=== PATIENT | female | born 1965 | race Caucasian/White ===

== ENCOUNTER → 2023-09-21 | Outpatient (CLI) | payer OTHER, SELFPAY ==
--- NOTE | 2023-09-21 14:35 | BI_ITS ---
MAMMOGRAPHY - BILATERAL SCREENING REASON FOR EXAM: Female, 58 years old. Routine annual screening examination. PERTINENT HISTORY: Grandmother with breast cancer. History of prior bilateral breast reduction surgery. TECHNIQUE: Digital bilateral breast mauro (3D mammographic acquisition) in the CC and MLO projections. 2-D mediolateral oblique (MLO) and craniocaudad (CC) views of both breasts were obtained. CAD: Full Field Digital Mammography with Computer Added Detection was performed. COMPARISON: Comparison is made with prior examination January 26, 2002. FINDINGS: Breast Composition: There are scattered areas of fibroglandular density. There are no dominant masses or suspicious calcifications. Stable small benign-appearing bilateral axillary lymph nodes. No other significant abnormalities are identified. There has been no significant change since the prior study. BI/SCRN MAMM (CAD)W/MAURO BILAT IMPRESSION: Stable bilateral screening mammogram. Yearly follow-up mammogram recommended. (A) ASSESSMENT CATEGORY: BIRADS Category 2: Benign. A letter regarding these results will be sent to the patient by the facility within 30 days. Approximately 10% of breast cancers are not detected by mammography. A normal mammogram should not delay biopsy of a clinically suspicious abnormality. [id number] Electronically Signed: Sal Griffin MD at 8:32 EST ,
== END | disposition home or self-care (01) ==
PROVIDERS: PCP Internal Medicine; Referring Provider Internal Medicine; Visit Provider Internal Medicine
DX: Z12.31 Encounter for screening mammogram for malignant neoplasm of breast (principal)
CPT/HCPCS: 77063; 77067

== ENCOUNTER → 2023-10-18 | Outpatient (CLI) | payer OTHER, SELFPAY ==
--- OUTSIDE RECORDS SUMMARY | 2023-10-18 08:55 | XMS RPT_ITS | CCD ---
Author Name Unknown Address [address] [place] [address] Organization [facility] Care Team Providers Care Network Cable Installer Name Role Phone ROC TOBIAS CNP Primary Care Unavailable ROC TOBIAS CNP Admitting Unavailable ROC TOBIAS CNP Attending Unavailable ROC TOBIAS CNP Consulting Unavailable PROVIDER, UNKNOWN Consulting Unavailable PROVIDER, UNKNOWN Consulting Unavailable ROC TOBIAS CNP Admitting Unavailable ROC TOBIAS CNP Attending Unavailable ROC TOBIAS CNP Consulting Unavailable ROC TOBIAS CNP Primary Care Unavailable PROVIDER, UNKNOWN Consulting Unavailable PROVIDER, UNKNOWN Consulting Unavailable ROC TOBIAS CNP Admitting Unavailable ROC TOBIAS CNP Attending Unavailable ROC TOBIAS CNP Consulting Unavailable ROC TOBIAS CNP Primary Care Unavailable PROVIDER, UNKNOWN Consulting Unavailable PROVIDER, UNKNOWN Consulting Unavailable JAVON FUENTES Primary Care Unavailable JAVON FUENTES Admitting Unavailable ROC TOBIAS CNP Consulting Unavailable JAVON FUENTES Attending Unavailable PROVIDER, UNKNOWN Consulting Unavailable PROVIDER, UNKNOWN Consulting Unavailable ROC TOBIAS CNP Primary Care Unavailable ROC TOBIAS CNP Admitting Unavailable ROC TOBIAS CNP Attending Unavailable ROC TOBIAS CNP Consulting Unavailable PROVIDER, UNKNOWN Consulting Unavailable PROVIDER, UNKNOWN Consulting Unavailable Problems Active Problems Problem Classification Problem Date Documented Da te Episodic/Chronic Disorders of lipid metabolism (2 sources) Hyperlipidemia, unspecified; Translations: [Hyperlipidemia, unspecified] Onset: 05-31-2021 Chronic Other nutritional; endocrine; and metabolic disorders (1 source) Morbid (severe) obesity due to excess calories; Translations: [Morbid (severe) obesity due to excess calories] Onset: 05-31-2021 Chronic Other nutritional; endocrine; and metabolic disorders (1 source) Overweight; Translations: [Overweight] Onset: 01-13-2022 Episodic Other screening for suspected conditions (not mental disorders or infectious disease) (1 source) Encounter for screening for diseases of the blood and blood-forming organs and certain disorders involving the immune mechanism; Translations: [Encounter for screening for diseases of the blood and blood-forming organs and certain disorders involving the immune mechanism] Onset: 01-13-2022 Episodic Past or Other Problems Problem Classification Problem Date Documented Da te Episodic/Chronic Malaise and fatigue (2 sources) Other fatigue; Translations: [Other fatigue] Onset: 05-31-2021 Episodic Other circulatory disease (3 sources) Elevated blood-pressure reading, without diagnosis of hypertension; Translations: [Elevated blood-pressure reading, without diagnosis of hypertension] Onset: 05-31-2021 Episodic Results Test Name Value Interpretation Reference Range Facil ity Encounters Encounter Date Encounter Type Care Provider Facility Start: 02-16-2022 End: 02-16-2022 ambulatory JAVON Colin [facility] Start: 01-26-2022 End: [facility] [facility] Start: 01-13-[address] [facility] Start: 05-31-2021 End: 05-31-2021 ambulatory [facility] Payers Date Payer Category Payer Unknown [id number] 1965 Unknown [id number] 2.16.84 [id number] 1965 Unknown [id number] 2.16.84 [id number] 1965 Unknown [id number] 2.16.84 [id number] 1965 Unknown [id number] 2.16.84 [id number] 1965 Unknown [id number] 2.16.84 [id number] Clinical Note 02-23-2022 Note Date & Type Note Facility 02-23-2022 Note [facility] HISTORY & PHYSICAL NAME ACCOUNT SEX AGE ADMIT DISCHARGE PT MED. RECORD# NUMBER DATE DATE TYPE DIOGO [id number] F 56 02/16/22 Bryan Courtney [address] ROOM: [facility] DATE OF : 63 DICTATING PHYSICIAN: Javon Fuentes CHIEF COMPLAINT: Colon cancer screening. HISTORY OF PRESENT ILLNESS: Mrs. Lind is a 56-year-old female who presents for colon cancer screening. She denies any worrisome signs or symptoms at this time. She does report having a remote colonoscopy, which polyps were removed. PAST MEDICAL HISTORY: None. MEDICATIONS: See MAR. ALLERGIES: No known drug allergies. FAMILY HISTORY: Lymphoma. SOCIAL HISTORY: Negative x3. REVIEW OF SYSTEMS: Ten systems review of systems are negative. PHYSICAL EXAMINATION GENERAL APPEARANCE: In general, she is alert, oriented, and appropriate with no acute distress. VITAL SIGNS: She is afebrile. Vital signs, within normal limits. LUNGS: Lungs are clear to auscultation bilaterally. HEART: Regular rate and rhythm. ABDOMEN: Soft, nontender, and nondistended. EXTREMITIES: Extremities show no cyanosis, edema, or gross deformities. IMPRESSION: This is a 56-year-old female requiring colon cancer screening. PLAN: I discussed the risks, benefits, and alternatives of colonoscopy. All questions were answered. She voiced understanding and agreement with the plan. Page 1 of 2 JOSE LIND History & Physical JOSE LIND :1965 Dictated By: Javon Fuentes MD 02/16/22 07:45 JOB #: [id number] Transcribed By: francisco 02/16/22 08:19 Electronically signed by: E-SIGN DR. FUENTES 02/23/22 10:57 Update to H&P: [ ] No changes: I have examined the patient and reviewed the H&P and there are no changes. [ ] As previously dictated with the following changes: PHYSICIAN SIGNATURE: TIME: DATE: Page 2 of 2 JOSE LIND History & Physical [facility] Summary Purpose Family History No Family History Records FoundNo Family History Records FoundNo Family History Records Found Advance Directives No Advanced Directives Records FoundNo Advanced Directives Records FoundNo Advanced Directives Records Found Additional Source Comments INFORMATION SOURCE (unrecogn ized section and content) DATE CREATED AUTHOR AUTHOR'S ORGANIZ ATION 06/11/2020 [facility] DATE CREATED AUTHOR AUTHOR'S ORGANIZ ATION 02/24/2022 [facility] FOR RECORDS PERTAINING TO PATIENTS WHO ARE OR HAVE BEEN ENROLLED IN A CHEMICAL DEPENDENCY/SUBSTANCEABUSE PROGRAM, SOME INFORMATION MAY BE OMITTED. This clinical summary was aggregated from multiple sources. Caution should be exercised in using it in the provision of clinical care. This summary normalizes information from multiple sources, and as a consequence, information in this document may materially change the coding, format and clinical context of patient data. In addition, data may be omitted in some cases. CLINICAL DECISIONS SHOULD BE BASED ON THE PRIMARY CLINICAL RECORDS. [employer] provides no warranty or guarantee of the accuracy or completeness of information in this document.
[2023-10-18 10:07] LABS: Absolute Lymphocyte Count 1.52 X10^3/uL (0.83-4.51); Absolute Neutrophil Count 3.4 X10^3/uL (2.0-7.7); Basophil# 0.04 X10^3/uL; Basophil% 0.7 % (0-1); Eosinophils% 3.5 % (0-5); Hematocrit 47.6 % (37-47); Hemoglobin 15.7 g/dL (12.0-15.0); Lymphocyte # 1.52 X10^3/ul (0.83-4.51); Lymphocyte % 26.3 % (19-41); Mean Corpuscular Hgb 33.3 pg (27.0-32.0); Mean Corpuscular Volume 100.8 fL (81-99); Mean Platelet Vol. 9.7 fl (6.2-12.0); Monocyte# 0.58 X10^3/uL; NRBC Flagged by Analyzer 0 % (0-5); Neutrophil # 3.43 X10^3/uL (2.7-7.7); Neutrophil % 59.3 % (47-70); Platelet Count 231 K/mm3 (150-450); RBC Distribution Width CV 13.6 % (11.6-14.6); RBC Distribution Width SD 51.2 fl (35.1-43.9); Red Blood Count 4.72 M/mm3 (4.2-5.4); White Blood Count 5.8 K/mm3 (4.4-11.0)
[2023-10-18 10:45] LABS: ALB/GLOB Ratio 0.8 RATIO (0.9-2.4); AST(SGOT) 18 U/L (15-37); Alanine Aminotransfer ALT/SGPT 26 U/L (13-56); Albumin, Serum 3.7 g/dL (3.2-5.0); Alkaline Phosphatase 95 U/L (45-117); Anion Gap 5 (5-15); BUN 11 mg/dL (7-18); BUN/Creat Ratio 14.8 RATIO (10-20); Chloride 106 mmol/L (98-107); Cholesterol 259 mg/dL (200); Creatinine, Serum 0.74 mg/dL (0.55-1.02); EST Glomerular Filtration Rate 85 mL/min (>60); Est Glom Filt Rate - Afr Amer 103 mL/min (>60); Globulin 4.4 g/dL (2.2-4.2); Glucose 85 mg/dL (74-106); High Density Lipoprotein 62 mg/dL; Potassium 4.4 mmol/L (3.5-5.1); Protein, Total 8.1 g/dL (6.4-8.2); Sodium Level 140 mmol/L (136-145); Triglycerides 121 mg/dL; Very Low Density Lipoprotein 24 mg/dL (5-40)
== END | disposition home or self-care (01) ==
LOC: LAB 08:51
PROVIDERS: PCP Internal Medicine; Visit Provider Internal Medicine
DX: Z00.00 Encounter for general adult medical examination without abnormal findings (principal); Z13.6 Encounter for screening for cardiovascular disorders
CPT/HCPCS: 36415; 80053; 80061; 85025

== ENCOUNTER 2024-06-16 09:07 | Day surgery (SDC) | payer OTHER, SELFPAY ==
[2024-06-16] VITALS (7 sets, daily range): BP systolic 129–151; BP diastolic 98–114; PULSE 66–84; RESP 16–18; TEMP 36.1–36.8; O2SAT 92–99; BMI 25.9
--- NOTE | 2024-06-16 09:37 | HP.PCM_ITS ---
History and Physical Date of Admission: 06/16/24 58 F who presents to the office today for initial consult. *[facility] established 7.30.24 pt reports that in late February 2024 she had a routine colonoscopy done in [place] and pt stated that they could not complete the scope due to a kink in colon. Pt had another colonoscopy done in [place] where they had the same problem and could not get the scope through. In between the two colonoscopies pt did a cologuard test that did not come back positive, but showed antibodies. Pt reports that she is feeling well overall and denies GI symptoms of concern at this time. ROS Const Constitutional: Positive for fatigue; No fever(s) or weight change ENT ENT: No difficulty swallowing Gastro GI: Positive for abdominal pain, change in bowel habits and constipation; No belching, bloating, change in stool character, coffee ground emesis, cramping, diarrhea, heartburn, difficulty swallowing, feeling full early, excessive flatus, incontinent of stools, Vomiting blood/hematemesis, Blood in stool, loose stools, Black,tarry stools, nausea/dyspepsia, pain with swallowing, vomiting or other Musc Musculoskeletal: Positive for back pain, stiffness and restless legs; No joint pain Skin Skin: No yellowing of the eye or itchy eyes Neuro Neurology: Positive for restless legs Psych Psychiatric: Positive for anxiety and No depression Endo Endocrine: Positive for fatigue; No weight change Aller/Imm Allergy/Immunologic: No itchy eyes Kaiden/Lymp Hematologic/Lymphatic: Positive for easy bruising; No easy bleeding Exam Const General: cooperative, healthy appearing, no acute distress, well developed, not diaphoretic and not ill appearing Nutritional Appearance: well nourished Orientation: alert and oriented x3 Limitations: mental status not altered [facility] Head: normal to inspection, normocephalic and atraumatic Ears: hearing grossly normal bilaterally and TM's normal bilaterally Face and sinus: normal facial exam Mouth: oral mucosae normal and moist mucous membranes Teeth and gingiva: dentition normal Throat: posterior oropharynx normal and uvula midline Eyes Conjunctivae: conjunctivae normal Sclera: sclerae normal Pupils: PERRL EOM: EOM intact bilaterally Neck Neck: no lymphadenopathy Thyroid: thyroid normal Lymphatic: no lymphadenopathy noted Chest Chest palpation & inspection: normal inspection of the chest Resp Effort & Inspection: normal respiratory effort, able to speak in complete sentences, no audible wheezes and no cough Auscultation: Bilateral: Clear to Auscultation Cardio Rate: regular rate Rhythm: regular rhythm Heart Sounds: S1 normal, S2 normal and no murmurs Pulses: radial pulses present bilaterally 2+ GI Inspection: non-distended Auscultation: normal bowel sounds Palpation: soft, no hepatosplenomegaly and nontender Skin General: no rashes or lesions noted and dry skin Wounds: no wounds Neuro General: patient alert, patient oriented x3, gait normal, moves all extremities, CN's II-XI intact bilaterally and not confused Cranial Nerves: CN's II-XI intact bilaterally, PERRL, accommodation normal, EOM intact bilaterally, no nystagmus, facial strength normal, tongue midline, hearing normal, able to rotate head bilaterally and able to elevate shoulders bilaterally Cognition: normal cognition Speech: speech normal Gait: normal gait Motor: strength 5/5 throughout and no pronator drift Sensory Exam: no sensory deficits noted Coordination: [id number] test normal, rkin-hh-ooes test normal, Romberg test normal and rapid alternating movement UE normal Other: Difficult to obtain upper and lower extremities bilaterally Extrem General: normal to inspection and no edema Psych Appearance: grossly normal Mental Status: mental status grossly normal Affect: normal affect Attitude: cooperative Assessment and Plan Assessment and Plan (1) History of colon polyps: Status: Acute Comment: Found 2014 and were benign Plan: Very pleasant 58-year-old with no past medical history except for intermittent diverticulitis. She underwent unsuccessful colonoscopy x 2. She had a Cologuard that was positive. She will undergo colonoscopy. She was explained alternatives, risk, benefits including not withstanding bleeding, infection, sepsis, perforation, need for emergent urgent . She will have an ASA of 3. I have examined the patient and the H&P has been reviewed. There are no clinical changes since date of exam.
[2024-06-16] MEDS: Lactated Ringers 1,000 ML 15 ML IV (09:41)
--- NOTE | 2024-06-16 10:06 | PRE.ANES_ITS ---
ASA Classification* ASA Classification ASA Classification: 2 Assessment & Plan Anesthesia* Anesthesia Assessment Anesthesia Assessment: Discussed sedation and/or anesthesia options, risks, benefits, and alternatives with patient/parents/legal guardian/POA. Questions invited. The patient/parents/legal guardian/POA seems to understand and agrees to proceed with anesthesia plan. Reviewed the physical assessment, medical history, allergy history and patient home medications list prior to surgery/procedure/anesthetic and documented any changes. Performed airway and anesthesia risk assessments. Anesthesia Type Anesthesia Type: MAC History Source History Obtained from:: Patient and Chart Anesthesia Focused Assessment* Temperature: 98.2 F Pulse Rate: 84 Blood Pressure: 129/98 Respiratory Rate: 18 Pulse Ox: 99 Oxygen Delivery Method: Room Air Airway Assessment Mouth opens: >3 cm Mallampati Score: III Teeth Condition: Chipped/Broken (Right lower molar is broken) Neck Range of motion (ROM): Full ROM Focused Labs Anesthesia Preop lab: CBC WBC 5.8 K/mm3 (4.4-11.0) 10/18/23 09:00 RBC 4.72 M/mm3 (4.2-5.4) 10/18/23 09:00 Hgb 15.7 g/dL (12.0-15.0) H 10/18/23 09:00 Hct 47.6 % (37-47) H 10/18/23 09:00 Plt Count 231 K/mm3 (150-450) 10/18/23 09:00 CHEMISTRY Potassium 4.4 mmol/L (3.5-5.1) 10/18/23 09:00 Sodium 140 mmol/L (136-145) 10/18/23 09:00 BUN 11 mg/dL (7-18) 10/18/23 09:00 Creatinine 0.74 mg/dL (0.55-1.02) 10/18/23 09:00 Glucose 85 mg/dL (74-106) 10/18/23 09:00 COAG HCG, Quant < 1 mIU/mL (<9 non-preg) 09/30/12 07:41 Pre-Assessment Diagnosis/Proposed Procedure Planned Operative Procedure(s): CSCOPE Anesthesia History Anesthesia History - security services manager: Anesthesia History - security services manager Hx Hospitalization No 06/12/24 13:48 Any Problems With Anesthesia No 06/12/24 13:48 Cholinesterase deficiency No 06/12/24 13:48 You/Your Family Experience No 06/12/24 13:48 fever (hyperthermia) with Relationship Recent Exposure to Contagious No 06/16/24 09:42 Disease Does patient have nerve No 06/12/24 13:48 stimulator Patient instructed to have device shut off --Does patient have Pacemaker No 06/16/24 09:42 or ICD? When Was Last Pacemaker Check QUESTION #4 FULL TEXT: You/Your Family Experience fever (hyperthermia) with Anesthesia Last Oral Intake Last Oral intake: Last Oral Intake NPO since 00:01 06/16/24 09:42 Meds taken in AM with sips of No 06/16/24 09:42 water? Meds patient instructed to take am of surgery Any additional information?: Yes NPO since: 07:00 (Patient finished prep at 7 AM.) PONV PONV - security services manager: PONV - security services manager Female Yes 06/12/24 13:48 HX of Motion Sickness Yes 06/12/24 13:48 HX of N/V After Surgery No 06/12/24 13:48 Non-Smoker Yes 06/12/24 13:48 Duration of Surgery greater No 06/12/24 13:48 than 60 minutes Number of Risk Factors 3 06/12/24 13:48 PONV Score Moderate Risk 06/12/24 13:48 Height & Weight Height & Weight: Anesthesia: Height & Weight Height 5 ft 10 in 06/16/24 09:42 Weight: 82.1 kg 06/16/24 09:42 Body Mass Index (BMI) 25.9 06/16/24 09:42 Respiratory Assessment Respiratory Assessment - security services manager: Respiratory Tract Infection Hx - security services manager Hx Respiratory Tract Infection No 06/12/24 13:48 STOP Sleep Apnea STOP Sleep Apnea - security services manager: STOP Sleep Apnea - security services manager Hx Hypertension No 06/12/24 13:48 Hx Sleep Apnea No 06/12/24 13:48 CPAP BIPAP Do you snore loudly (louder No 06/12/24 13:48 than talking or can be heard Do you often feel tired/ Yes 06/12/24 13:48 fatigued/ sleepy during daytime? Has anyone observed you stop No 06/12/24 13:48 breathing during sleep? STOP Results Negative 06/12/24 13:48 QUESTION #5 FULL TEXT : Do you snore loudly (louder than talking or can be heard through closed doors)? 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 Specify any problems Hx of Preganancy in last 3 No 06/12/24 13:48 Months Nurse Filling Out Transfusion DSCHRIBER 06/12/24 13:48 & Questions: Date: 06/12/24 06/12/24 13:48 Time: 13:50 06/12/24 13:48 Patient unable to answer at this time (ie. confused, unrespo /Reproduction History /Reproductive History - security services manager: /Reproductive Hx- security services manager Hx Now No 06/12/24 13:48 Gestational Age (in weeks): EDC: Hx Hx Para Hx Section SAB No 06/12/24 13:48 Active Medications Active Medications: Current Medications Generic Name Dose Route Start Last Admin Trade Name Freq PRN Reason Stop Dose Admin Lactated Ringer's 1,000 mls @ 15 mls/hr 06/16/24 09:15 06/16/24 09:41 IV 15 mls/hr .Q48H VIGNESH Administration PFSH Medical History (Updated 06/12/24 @ 13:54 by Jessica Devlin) Wears glasses Post-menopausal Alcohol use Easy bruising Former smoker Shortness of breath on exertion History of stress test Menorrhagia History of colon polyps Home Medications ?Medication ?Instructions ?Recorded ?Last Taken ?Type loratadine 10 mg tablet 10 mg PO DAILY PRN allergy symptoms 08/23/23 Unknown History naproxen sodium 220 mg tablet 220 mg PO BID PRN pain 08/23/23 Unknown History (Aleve) Allergy/AdvReac Type Severity Reaction Status Date / Time No Known Allergies Allergy Verified 06/16/24 09:40 Family History (Updated 08/23/23 @ 14:[address] Georgina Godfrey MD) Grandmother Breast cancer Brother Myocardial infarction Father Myocardial infarction Hypertension Heart disease Brother Cancer lymphoma Mother CVA (cerebral vascular accident) Surgical History (Updated 06/12/24 @ 13:54 by Jessica Devlin) Hx of colonoscopy History of hysteroscopy Status post breast reduction Social History (Updated 08/23/23 @ 14:[address] 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
--- NOTE | 2024-06-16 10:15 | COLBX_PTH ---
PATIENT: JOSE LIND LOC: EN U#:[id number] AGE/SX: 58/F ROOM: RE06/16/[address]: Dr. Torrey Rich DO : 1965 BED: DIS: 06/16/2024 SPEC #: [id number] RECD: 06/16/24 13:13 STATUS: TIA AYLA #: [id number] VENICE: 06/16/24 10:[address]: Torrey Rich DEPT: SURGICAL PATHOLOGY RECD BY: Margarita Patino ENTERED: 06/16/24 13:52 SP TYPE: COLON BX OTHR DR: Dr. Georgina Godfrey MD Tissues: A - COLON BIOPSY B - Transverse colon Procedures: Surgery Specimen Level IV HEADER OPERATION: Colonoscopy with polypectomy, biopsy PRE-OP DIAGNOSIS: History of colonic polyps TISSUE SUBMITTED: A- Hepatic flexure polyp x2, B- Transverse colon ischemic colitis MICROSCOPIC DIAGNOSIS A. Hepatic flexure polyp, polypectomy: Hyperplastic polyp. B. Transverse colon polyp, biopsy: A fragment of colonic mucosa with changes consistent with ischemic colitis. 06/17/2024 MICROSCOPIC DESCRIPTION Slides are reviewed. GROSS DESCRIPTION A. Received in fixative is one container labeled with the patient's name and designated Hepatic flexure polyp biopsy. The specimen consists of one irregular fragment of light veloz soft tissue that measures 1.0 x 0.5 x 0.2 cm. The specimen is totally submitted in one cassette. B. Received in fixative is one container labeled with the patient's name and designated Transverse colon biopsy. The specimen consists of one irregular fragment of light veloz soft tissue that measures 0.7 x 0.2 x 0.1 cm. The specimen is totally submitted in one cassette. 06/16/2024 TC:5 CPT:64549c1
--- NOTE | 2024-06-16 11:24 | OP.CCLET_ITS ---
06/16/2024 Georgina Godfrey Md Re : Colonoscopy procedure for Bette Goldstein Dear Bekah This procedure was performed on Sunday, June 16, 2024. My impressions and recommendations are as follows: Impressions : - Severe diverticulosis in the recto-sigmoid colon, in the sigmoid colon and in the descending colon. There was narrowing of the colon in association with the diverticular opening. There was evidence of diverticular spasm. Tish-diverticular erythema was seen. There was evidence of an impacted diverticulum. Purulent discharge was seen in association with the diverticular opening, suspicious of diverticulitis. There was no evidence of diverticular bleeding. - Two 1 to 2 mm polyps at the hepatic flexure, removed with a cold snare. Resected and retrieved. - Localized moderate inflammation was found in the transverse colon secondary to ischemic colitis. Biopsied. Recommendations : - Discharge patient to home. - Resume previous diet today. - Continue present medications. - Await pathology results. - Repeat colonoscopy in 5 years for surveillance. - Cipro (ciprofloxacin) 500 mg PO BID for 2 weeks. - Flagyl (metronidazole) 500 mg PO TID for 2 weeks. My findings are described in the full procedure note, which is enclosed. If I can be of further assistance, please feel free to contact me at . Sincerely, Torrey Rich, 06/16/2024 11:24:14 AM This report has been signed electronically.
--- NOTE | 2024-06-16 11:24 | OP.COLON_ITS ---
Patient Name: Bette Goldstein Procedure Date: 06/16/2024 10:16 AM Date of : 1965 Age: 58 Procedure: Colonoscopy Indications: Screening for colorectal malignant neoplasm Providers: Torrey Rich DO Medicines: Monitored Anesthesia Care Patient Profile: This is a 58 year old female. Refer to note in patient chart for documentation of history and physical. Last Colonoscopy: within the past 3 months. Complications: No immediate complications. Procedure: Pre-Anesthesia Assessment: - Prior to the procedure, a History and Physical was performed, and patient medications and allergies were reviewed. The patient is competent. The risks and benefits of the procedure and the sedation options and risks were discussed with the patient. All questions were answered and informed consent was obtained. Patient identification and proposed procedure were verified by the physician in the pre-procedure area. Mental Status Examination: alert and oriented. Airway Examination: normal oropharyngeal airway and neck mobility. Respiratory Examination: clear to auscultation. CV Examination: normal. Prophylactic Antibiotics: The patient does not require prophylactic antibiotics. Prior Anticoagulants: The patient has taken no anticoagulant or antiplatelet agents. ASA Grade Assessment: II - A patient with mild systemic disease. After reviewing the risks and benefits, the patient was deemed in satisfactory condition to undergo the procedure. The anesthesia plan was to use monitored anesthesia care (MAC). Immediately prior to administration of medications, the patient was re-assessed for adequacy to receive sedatives. The heart rate, respiratory rate, oxygen saturations, blood pressure, adequacy of pulmonary ventilation, and response to care were monitored throughout the procedure. The physical status of the patient was re-assessed after the procedure. After I obtained informed consent, the scope was passed under direct vision. Throughout the procedure, the patient's blood pressure, pulse, and oxygen saturations were monitored continuously. The Colonoscope was introduced through the anus and advanced to the cecum, identified by appendiceal orifice and ileocecal valve. The colonoscopy was performed without difficulty. The patient tolerated the procedure well. The quality of the bowel preparation was adequate. The ileocecal valve, appendiceal orifice, and rectum were photographed. Scope In: 10:31:06 AM Scope Withdrawal Time 0 hours 9 minutes 5 seconds Scope Out: 11:16:10 AM Total Procedure Duration Time 0 hours 45 minutes 4 seconds Findings: The perianal and digital rectal examinations were normal. Multiple small and large-mouthed diverticula were found in the recto-sigmoid colon, sigmoid colon and descending colon. There was narrowing of the colon in association with the diverticular opening. There was evidence of diverticular spasm. Tish-diverticular erythema was seen. There was evidence of an impacted diverticulum. Purulent discharge was seen in association with the diverticular opening, suspicious of diverticulitis. There was no evidence of diverticular bleeding. Two sessile polyps were found in the hepatic flexure. The polyps were 1 to 2 mm in size. These polyps were removed with a cold snare. Resection and retrieval were complete. Verification of patient identification for the specimen was done. Estimated blood loss was minimal. Localized moderate inflammation characterized by erythema, friability and granularity was found in the transverse colon. Biopsies were taken with a cold forceps for histology. Verification of patient identification for the specimen was done. Estimated blood loss was minimal. Impression: - Severe diverticulosis in the recto-sigmoid colon, in the sigmoid colon and in the descending colon. There was narrowing of the colon in association with the diverticular opening. There was evidence of diverticular spasm. Tish-diverticular erythema was seen. There was evidence of an impacted diverticulum. Purulent discharge was seen in association with the diverticular opening, suspicious of diverticulitis. There was no evidence of diverticular bleeding. - Two 1 to 2 mm polyps at the hepatic flexure, removed with a cold snare. Resected and retrieved. - Localized moderate inflammation was found in the transverse colon secondary to ischemic colitis. Biopsied. Recommendation: - Discharge patient to home. - Resume previous diet today. - Continue present medications. - Await pathology results. - Repeat colonoscopy in 5 years for surveillance. - Cipro (ciprofloxacin) 500 mg PO BID for 2 weeks. - Flagyl (metronidazole) 500 mg PO TID for 2 weeks. Procedure Code(s): --- Professional --- 63974, Colonoscopy, flexible; with removal of tumor(s), polyp(s), or other lesion(s) by snare technique 71819, 58, Colonoscopy, flexible; with biopsy, single or multiple CPT copyright 2021 [employer]. All rights reserved. The codes documented in this report are preliminary and upon aerodynamicist review may be revised to meet current compliance requirements. Torrey Rich DO 06/16/2024 11:24:14 AM This report has been signed electronically. Number of Addenda: 0 Note Initiated On: 06/16/2024 10:16 AM
--- NOTE | 2024-06-16 11:26 | PCM.POST.ANE ---
Anesthesia: Postop Eval I Current Vital Signs Temperature: 97 F Pulse Rate: 66 Blood Pressure: 132/101 Respiratory Rate: 18 Pulse Ox: 97 Oxygen Delivery Method: Room Air Assessment Airway patent: Yes Spontaneous unlabored respirations: Yes Mental status: Awake and Calm nausea: No Vomiting: No Anesthesia Complication: No Fluid Hydration Crystalloid volume administer (ml): 1,000 Total IV fluid infused: 1,000 Progress Note Anesthesia document: Postop Eval 1 completed: Yes
--- NOTE | 2024-06-16 13:44 | POSTOPAN2_ITS ---
Anesthesia Postop Eval I Sum Postop Eval Completion status Anesthesia document: Postop Eval 1 completed: Yes Anesthesia Postop Eval I Summary Anesthesia Postop Eval I Summary: Anesthesia Postop Eval I: Assessment Summary Airway patent Yes 06/16/24 11:27 [email or web address] WORKER [email or web address] Spontaneous unlabored Yes 06/16/24 11:27 UTILITY WORKER DRIVER.[email or web address] respirations Mental status Awake,Calm 06/16/24 11:27 UTILITY WORKER DRIVER.[email or web address] nausea No 06/16/24 11:27 UTILITY WORKER DRIVER.[email or web address] Vomiting No 06/16/24 11:27 UTILITY WORKER DRIVER.[email or web address] Anesthesia Postop Eval I: Fluid Summary Crystalloid volume administer 1,000 06/16/24 11:27 UTILITY [email or web address] (ml) Colloids volume administered ( ml) Blood Product volume administered (ml) Total IV fluid infused 1,000 06/16/24 11:27 UTILITY WORKER [email or web address] Anesthesia Postop Eval I: Summary Notes Anesthesia Complication No 06/16/24 11:27 UTILITY WORKER [email or web address].ALEX Anesthesia Complication Comment: Post-operative progress note Anesthesia: Postop Eval II Evaluation Mental status: Awake and Calm Pain Level: 0 nausea: No Vomiting: No Complications Anesthesia Complication: No
--- NOTE | 2024-06-16 13:44 | PCM.POSTANE2 ---
Anesthesia Postop Eval I Sum Postop Eval Completion status Anesthesia document: Postop Eval 1 completed: Yes Anesthesia Postop Eval I Summary Anesthesia Postop Eval I Summary: Anesthesia Postop Eval I: Assessment Summary Airway patent Yes 06/16/24 11:27 [email or web address] Spontaneous unlabored Yes 06/16/24 11:27 [email or web address] [email or web address] respirations Mental status Awake,Calm 06/16/24 11:27 ULTRASOUND TECHNICIAN.[email or web address] nausea No 06/16/24 11:27 ULTRASOUND TECHNICIAN.[email or web address] Vomiting No 06/16/24 11:27 ULTRASOUND TECHNICIAN.[email or web address] Anesthesia Postop Eval I: Fluid Summary Crystalloid volume administer 1,000 06/16/24 11:27 [email or web address] [email or web address] (ml) Colloids volume administered ( ml) Blood Product volume administered (ml) Total IV fluid infused 1,000 06/16/24 11:27 ULTRASOUND [email or web address].[email or web address] Anesthesia Postop Eval I: Summary Notes Anesthesia Complication No 06/16/24 11:27 ULTRASOUND [email or web address].ALEX Anesthesia Complication Comment: Post-operative progress note Anesthesia: Postop Eval II Evaluation Mental status: Awake and Calm Pain Level: 0 nausea: No Vomiting: No Complications Anesthesia Complication: No
== END 2024-06-16 12:09 | disposition home or self-care (01) ==
LOC: EN 09:10 → AC 09:11
PROVIDERS: PCP Internal Medicine; Referring Provider Internal Medicine; Visit Provider Internal Medicine Gastroenterology
PROC: 0DJD8ZZ Inspection of Lower Intestinal Tract, Via Natural or Artificial Opening Endoscopic (ICD-10-PCS; CPT 45378; principal; 2024-06-16 10:10)
DX: Z12.11 Encounter for screening for malignant neoplasm of colon (principal); K57.30 Diverticulosis of large intestine without perforation or abscess without bleeding; Z86.010 Personal history of colon polyps; K55.9 Vascular disorder of intestine, unspecified; K63.5 Polyp of colon
CPT/HCPCS: 45385; 45380; 88305; J7120; J2405

== ENCOUNTER → 2024-12-22 | Outpatient (CLI) | payer OTHER, SELFPAY ==
[2024-12-22 15:37] LABS: Absolute Lymphocyte Count 1.13 X10^3/uL (0.83-4.51); Absolute Neutrophil Count 6.7 X10^3/uL (2.0-7.7); Basophil# 0.06 X10^3/uL; Basophil% 0.7 % (0-1); Eosinophil# 0.17 X10^3/uL; Eosinophils% 1.9 % (0-5); Hematocrit 45.3 % (37-47); Hemoglobin 14.3 g/dL (12.0-15.0); Lymphocyte # 1.13 X10^3/ul (0.83-4.51); Lymphocyte % 12.8 % (19-41); Mean Corp Hgb Conc 31.6 g/dL (32-36); Mean Corpuscular Hgb 30.3 pg (27.0-32.0); Monocyte# 0.76 X10^3/uL; Monocyte% 8.6 % (0-10); NRBC Flagged by Analyzer 0 % (0-5); Neutrophil % 75.7 % (47-70); Platelet Count 403 K/mm3 (150-450); RBC Distribution Width CV 13.6 % (11.6-14.6); RBC Distribution Width SD 48.3 fl (35.1-43.9); Red Blood Count 4.72 M/mm3 (4.2-5.4); White Blood Count 8.9 K/mm3 (4.4-11.0)
[2024-12-22 21:39] LABS: ALB/GLOB Ratio 0.8 RATIO (0.9-2.4); AST(SGOT) 29 U/L (<=31); Alanine Aminotransfer ALT/SGPT 23 U/L (<=34); Albumin, Serum 3.9 g/dL (3.4-4.8); Alkaline Phosphatase 94 U/L (35-104); Anion Gap 14 (5-15); BUN 9 mg/dL (4-19); BUN/Creat Ratio 14.2 RATIO (10-20); Calcium 9.8 mg/dL (7.6-11.0); Carbon Dioxide 23.2 mmol/L (22.0-29.0); Chloride 100 mmol/L (96-108); Creatinine, Serum 0.65 mg/dL (0.70-1.20); EST Glomerular Filtration Rate 101 (>60); Globulin 4.7 g/dL (2.2-4.2); Glucose 86 mg/dL (70-99); Potassium 4.3 mmol/L (3.3-5.1); Protein, Total 8.5 g/dL (5.9-8.4); Sodium Level 137 mmol/L (133-145); Total Bilirubin 0.47 mg/dL (0.00-1.30)
[2024-12-22 22:22] LABS: Cholesterol 179 mg/dL (<=200); High Density Lipoprotein 37 mg/dL; Low Density Lipoprotein Calc. 125 mg/dL; Triglycerides 88 mg/dL; Very Low Density Lipoprotein 18 mg/dL (5-40)
== END | disposition home or self-care (01) ==
LOC: BIMLAB 11:21
PROVIDERS: PCP Internal Medicine; Visit Provider Internal Medicine
DX: R07.9 Chest pain, unspecified (principal)
CPT/HCPCS: 36415; 80053; 80061; 84443; 85025

== ENCOUNTER → 2025-01-26 | Outpatient (CLI) | payer OTHER, SELFPAY ==
--- NOTE | 2025-01-26 09:11 | BI_ITS ---
EXAM: SCRN MAMM (CAD)W/MAURO BILAT DATE: 01/26/2025 CLINICAL HISTORY: F, Age 59 y/o , SCREENING BREAST CANCER RISK ASSESSMENT: Has not been calculated. TECHNIQUE: Bilateral screening digital breast tomosynthesis with 2D and 3D images. Computer aided detection. COMPARISON: Prior exam(s) dated 09/21/2023. FINDINGS: TISSUE DENSITY: The breast tissue is composed of scattered area of fibroglandular density. Of Bilateral Breast Mammographic Findings: There are stable benign round calcifications are seen in both breasts. Stable clusters of round and punctate calcifications are seen in the far anterior aspect, retroareolar region of both breasts. No suspicious masses, suspicious cluster of microcalcifications, architectural distortion or secondary to malignancy is identified in either breast. BI/SCRN MAMM (CAD)W/MAURO BILAT IMPRESSION: Right Breast: BIRADS 2 BENIGN FINDING. Left Breast: BIRADS 2 BENIGN FINDING. OVERALL FINAL ASSESSMENT: BIRADS 2 BENIGN FINDING RECOMMENDATION: Routine annual follow-up in 1 Year A letter with findings and recommendations will be mailed to the patient. Reading Location: [id number]
--- NOTE | 2025-01-26 16:26 | STRESSREP ---
Stress Test Report Exercise myocardial perfusion stress test. 59-year-old lady with a history of chest pain Stress protocol: Resting EKG demonstrates sinus rhythm with a rate of 66 bpm resting blood pressure is 140/92 mmHg. The patient exercised according to the regular Brian protocol for a total duration of 6 minutes attaining a maximum heart rate of 130 bpm which was 81% of maximum predicted heart rate; the maximum workload was 7 METS metabolic equivalents. At rest there were no ST or T wave changes noted to suggest ischemia and at peak exercise upsloping ST changes only were noted which did not meet the criteria for ischemia. No clinical angina was noted the test was terminated due to the target heart rate being achieved/fatigue. The peak blood pressure was 168/102 mmHg. Rate-pressure product was 19,700. Myocardial perfusion protocol. 14.5 mCi of technetium 99m sestamibi was injected at rest. The patient exercised according to regular Brian protocol for total duration of 6 minutes and at peak exercise 44.3 mCi of technetium 99m sestamibi was injected stress images were obtained stress and rest images were reconstructed in comparing the short axis vertical long and horizontal long axis. Gated images were also obtained. Perfusion SPECT analysis: Review of the stress images demonstrate normal uptake of tracer noted in all areas of the myocardium. The resting images similarly demonstrate normal uptake of tracer noted in all areas of the myocardium. No areas of reversibility are noted to suggest ischemia no previous infarct was noted. Gated SPECT analysis: The gated ejection fraction is 51%. Conclusion: Normal exercise myocardial perfusion stress test at a moderate workload Preserved ejection fraction.
== END | disposition home or self-care (01) ==
LOC: CVS 06:49
PROVIDERS: PCP Internal Medicine; Referring Provider Internal Medicine; Visit Provider Internal Medicine
DX: Z12.31 Encounter for screening mammogram for malignant neoplasm of breast (principal); R06.09 Other forms of dyspnea; R07.89 Other chest pain
CPT/HCPCS: 77063; 77067; 78452; 93017; A9500; A4216

== ENCOUNTER 2025-03-16 03:30 | Emergency (ER) | payer OTHER, SELFPAY ==
[2025-03-16] VITALS (8 sets, daily range): BP systolic 90–115; BP diastolic 55–84; PULSE 77–94; RESP 16–90; TEMP 36.5–36.7; O2SAT 93–98; BMI 25.8
--- NOTE | 2025-03-16 03:52 | CT_ITS ---
PROCEDURE: ABDOMEN/PELVIS W IV CONT ONLY 03/16/2025 REASON FOR EXAM: DIVERTICULITIS TECHNIQUE: Abdomen and pelvis CT with intravenous contrast. Coronal and Sagittal reconstruction series were provided. PATIENT PREPARATION: Per protocol ORAL CONTRAST TYPE: None. CONTRAST: 99 cc Isovue 370 IV One or more dose reduction techniques were used (e.g., Automated exposure control, adjustment of the mA and/or kV according to patient size, use of iterative reconstruction technique. RADIATION DOSE SUMMARY: CTDlvol: 16.94 mGy DLP: 1040.68 mGycm COMPARISON: None available FINDINGS: Bibasilar dependent atelectasis. A couple incidental hepatic cysts. The liver, adrenal glands, gallbladder, kidneys, pancreas and spleen appear within limits. Abdominal aorta appears within limits. Aortoiliac atherosclerotic calcification noted. No adenopathy. Segment of sigmoid colon within the left pelvis with wall thickening and edema consistent with history of diverticulitis. Extraluminal pelvic C-shaped collection measuring approximately 9.5 x 3.5 cm with bubbly material, extraluminal air and fluid with adjacent peritoneal enhancement and fat stranding, edema consistent with perforation. Scattered areas of free air throughout the abdomen and pelvis with collection beneath the right hemidiaphragm of air. Mildly prominent small bowel loop in the left lower abdomen suggests focal ileus. Normal caliber appendix. Mostly collapsed bladder appears within limits. Difficult to exclude possible small fundal uterine fibroid posteriorly. Lower lumbar facet degenerative changes. CT/Abdomen/Pelvis W IV Cont ONLY IMPRESSION: Findings are consistent with acute sigmoid diverticulitis with kay perforatio n and pelvic phlegmon and pneumoperitoneum as described above. Findings discussed verbally by myself with Dr. Abrams at 5:20 a.m. 03/16/2025 Reading Location: [id number]
--- NOTE | 2025-03-16 03:53 | EDS_ITS ---
HPI HPI - GI History of Present Illness Chief Complaint: Abd Pain Informant: patient Narrative Narrative: 59-year-old female presenting to the emergency room with the chief complaint of abdominal pain and bloating. History is a bit difficult to obtain as the patient answers in very short 1-2 word sentences even on open-ended questions. Patient states she has had a history of diverticulitis. She states that this is the second time she has had to come to the hospital for it. First time I do not see an ED visit. She had a colonoscopy by Dr. Rich in 2023 that showed diverticulitis in the treated with Cipro and Flagyl. Patient states that in the past 24 hours she has developed pain which she points to the suprapubic region and abdominal bloating. She denies any vomiting. She states that about 2 hours ago she began to have diarrhea. No reported fevers. She denies any abdominal surgeries. She states that she has had a cold over the past week and a half has been taking DayQuil NyQuil and her ribs are sore from coughing. PFSH PFSH Medical History Colitis Wears glasses Post-menopausal Alcohol use Easy bruising Former smoker Shortness of breath on exertion History of stress test Menorrhagia History of colon polyps Home Medications ?Medication ?Instructions ?Recorded ?Last Taken ?Type loratadine 10 mg tablet 10 mg PO DAILY PRN allergy s ymptoms 08/23/23 Unknown History naproxen sodium 220 mg tablet 220 mg PO BID PRN pain 1 10/23/22 Unknown History (Aleve) Allergy/AdvReac Type Severity Reaction Status Date / Time No Known Allergies Allergy Verified 12/22/24 09:55 Family History Grandmother Breast cancer Brother Myocardial infarction Father Myocardial infarction Hypertension Heart disease Brother Cancer lymphoma Mother CVA (cerebral vascular accident) Surgical History Hx of colonoscopy History of hysteroscopy Status post breast reduction Social History household members: spouse current occupational status: employed 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 - [employer] Smoking Status: Former smoker quit date: 10/22/20 pack-years: 20 Electronic Cigarette Use: not used alcohol intake: current alcohol intake frequency: holidays/special occasions only substance use type: does not use do you feel safe at home: Yes ROS ROS ED Constitutional Constitutional ED: Denies chills, fever(s) or weight loss Eyes Eyes: Denies change in vision or diplopia ENT ENT ED: Denies ear pain, rhinorrhea or sore throat Cardiovascular Cardiovascular: Denies chest pain, orthopnea, palpitations or racing heartbeat Respiratory/Chest Respiratory/Chest: Denies cough, dyspnea or orthopnea Gastrointestinal Gastrointestinal: Reports abdominal pain and diarrhea; Denies nausea or vomiting Genitourinary Genitourinary ED: Denies dysuria, hematuria or urinary frequency Musculoskeletal Musculoskeletal: Denies arthralgias or myalgias Integumentary Denies abscess or rash Neurologic Neurologic: Denies headache(s) or weakness Psychiatric Psychiatric: Denies anxiety, depression, suicidal ideation or suicidal thoughts Endocrine Endocrinology: Denies polydipsia, polyphagia or polyuria Allergic/Immunologic Allergic/Immunologic ED: Denies mouth swelling, tongue swelling or urticaria EXAM Physical Exam Const Vital Signs: 03/16/25 03:32 03/16/25 03:45 03/16/25 05:00 Temperature 97.7 F L 97.7 F L 97.7 F L Temperature Source Oral Oral Oral Pulse Rate 94 91 93 Respiratory Rate 16 22 H 18 Blood Pressure 90/55 L 110/84 H 112/83 H Blood Pressure Mean 66 92 92 Pulse Ox 97 93 Oxygen Delivery Method Room Air Room Air Room Air 03/16/25 05:31 03/16/25 06:00 Temperature 97.8 F Temperature Source Oral Pulse Rate 94 92 Respiratory Rate 18 18 Blood Pressure 103/72 103/72 Blood Pressure Mean 82 82 Pulse Ox 95 97 Oxygen Delivery Method Room Air Room Air Positive well nourished and well developed General Appearance ED: well developed HEENT Reports normocephalic, head/scalp atraumatic and moist mucous membranes Eyes PERRL and EOMs intact bilaterally Neck no lymphadenopathy, supple and no JVD Resp normal respiratory effort and clear to auscultation bilaterally Cardio regular rate, regular rhythm and no murmurs GI GI Narrative: The abdomen is diffusely tender to palpation with guarding. No tympany on percussion. Inspection: Negative for abdominal distention Auscultation: normoactive bowel sounds Palpation: soft, tender and guarding Back/Spine no CVA tenderness and normal ROM Extremity normal to inspection General Extremety ED: Negative for edema General Extremity: Negative for edema Neuro oriented x3 and CN's II-XII intact bilaterally Sensorium / Orientation: alert Motor Exam: strength 5/5 throughout Psych mental status grossly normal Mood & Affect: Negative for depressed or tearful Skin no rashes or lesions noted and no wounds MDM MDM MDM Narrative Medical decision making narrative: Differential diagnosis includes but not limited to diverticulitis bowel obstruction intra-abdominal abscess bowel perforation Patient's white count is elevated at 15.7 creatinine 0.7 normal liver enzymes lipase 13 urinalysis shows contamination of 5-10 squamous cells 2+ bacteria. CT of the abdomen pelvis with IV contrast was obtained. This is concerning for fluid collection and free air particularly low in the pelvis associated with acute diverticulitis. Patient has received pain and nausea medication as well as Zosyn and IV fluids. I spoke with Dr. Franklin from general surgery who is come to the emergency department to evaluate the patient. He feels that given the location of the fluid collection this would be best handled at a surgical center that has colorectal surgery. Patient was accepted to [facility] in [place]. She is from [place]. History & Record Review Discussion w/independent historian: Patient and Significant other Additional record(s) reviewed:: Prior outpatient record and Prior labs Lab Data Attestation: I reviewed the patient's lab results. Labs: Laboratory Results - last 24 hr 03/16/25 03:45 WBC 15.7 H RBC 4.50 Hgb 14.3 Hct 42.3 MCV 94.0 MCH 31.8 MCHC 33.8 RDW Std Deviation 57.5 H RDW Coeff of Laura 16.8 H Plt Count 424 MPV 9.0 Immature Gran % (Auto) 0.600 Neut % (Auto) 89.3 H Lymph % (Auto) 4.7 L Sac % (Auto) 5.0 Eos % (Auto) 0.1 Baso % (Auto) 0.3 Absolute Neuts (auto) 14.0 H Absolute Lymphs (auto) 0.74 L Nucleated RBC % 0 Sodium 133 Potassium 4.0 Chloride 98 Carbon Dioxide 20.9 L Anion Gap 15 BUN 13 Creatinine 0.70 Estim Creat Clear Calc 92.42 Est GFR (MDRD) Non-Af 98 BUN/Creatinine Ratio 18.3 Glucose 137 H Calcium 9.4 Total Bilirubin 0.99 Direct Bilirubin 0.49 H AST 19 ALT 14 Alkaline Phosphatase 93 Total Protein 8.0 Albumin 3.6 Globulin 4.4 H Lipase 13 Urine Color Yellow Urine Clarity Sl. Cloudy Urine pH 5.0 Ur Specific [place] 1.025 Urine Protein 100 H Urine Glucose (UA) Normal Urine Ketones 50 H Urine Occult Blood 25 H Urine Nitrite Negative Urine Bilirubin 1 H Urine Urobilinogen 4 H Ur Leukocyte Esterase 25 H Urine RBC 0 SEEN Urine WBC 0-5 SEEN Ur Squamous Epith Cells 5-10 SEEN Urine Bacteria 2+ Urine Mucus 3+ Radiography Diagnostic Testing: Clinical Impression(s) from Imaging Studies Abdomen/Pelvis CT 03/16/25 03:52 IMPRESSION: Findings are consistent with acute sigmoid diverticulitis with kay perforation and pelvic phlegmon and pneumoperitoneum as described above. Findings discussed verbally by myself with Dr. Abrams at 5:20 a.m. 03/16/2025 Reading Location: [facility] Management Discussion w/another healthcare provider: Clam Shucking Machine Tender (Dr Franklin (General Surgery) / [facility] / [place] [facility]) and Radiologist Discharge Plan Triage Chief Complaint: Abd Pain ED Provider: Jeff Abrams Dx/Rx/DC Orders Clinical Impression: Perforation of sigmoid colon due to diverticulitis, Abdominal pain Prescriptions: No Action loratadine 10 mg tablet 10 mg PO DAILY PRN (Reason: allergy symptoms) naproxen sodium [Aleve] 220 mg tablet 220 mg PO BID PRN (Reason: pain) Primary Care Provider: Georgina Godfrey Referrals: Georgina Gofdrey MD [Primary Care Provider] - Print Language: Norwegian
[2025-03-16] MEDS: Ondansetron 4 MG/2 ML Vial IV (04:06)
[2025-03-16] MEDS: Morphine 4 MG/ML Syringe IV ×2 (04:06→07:01)
[2025-03-16 04:13] LABS: Red Blood Cells-Urine 0 SEEN /hpf (0-5)
[2025-03-16 04:15] LABS: Color, Urine Yellow (Yellow); Glucose, Dipstick Normal (Normal); Ketone-Dipstick 50 mg/dl (Negative); Leukocyte Esterase-Dipstick 25 /ul (Negative); Nitrite-Dipstick Negative (Negative); Occult Blood-Urine 25 /ul (Negative); Protein-Dipstick 100 mg/dl (Negative); Specific Gravity, Urine 1.025 (1.002-1.030); Urine Clarity Sl. Cloudy (Clear); Urine Urobilinogen 4 mg/dl (Normal)
[2025-03-16 04:16] LABS: Absolute Lymphocyte Count 0.74 X10^3/uL (0.83-4.51); Basophil# 0.05 X10^3/uL; Basophil% 0.3 % (0-1); Eosinophil# 0.01 X10^3/uL; Eosinophils% 0.1 % (0-5); Hematocrit 42.3 % (37-47); Hemoglobin 14.3 g/dL (12.0-15.0); Lymphocyte # 0.74 X10^3/ul (0.83-4.51); Lymphocyte % 4.7 % (19-41); Mean Corp Hgb Conc 33.8 g/dL (32-36); Mean Corpuscular Hgb 31.8 pg (27.0-32.0); Monocyte# 0.79 X10^3/uL; NRBC Flagged by Analyzer 0 % (0-5); Neutrophil # 13.97 X10^3/uL (2.7-7.7); Neutrophil % 89.3 % (47-70); Platelet Count 424 K/mm3 (150-450); RBC Distribution Width CV 16.8 % (11.6-14.6); RBC Distribution Width SD 57.5 fl (35.1-43.9); White Blood Count 15.7 K/mm3 (4.4-11.0)
[2025-03-16 04:21] LABS: Bacteria 2+ /hpf (None Seen); Mucous, Urine 3+ /hpf (<or=2+); Squamous Epithelial Cells - UA 5-10 SEEN /hpf (5-10); Urine Bilirubin Dipstick 1 mg/dL (Negative); White Blood Cells 0-5 SEEN /hpf (0-5)
[2025-03-16 04:37] LABS: AST(SGOT) 19 U/L (<=31); Alanine Aminotransfer ALT/SGPT 14 U/L (<=34); Albumin, Serum 3.6 g/dL (3.4-4.8); Alkaline Phosphatase 93 U/L (35-104); Anion Gap 15 (5-15); BUN 13 mg/dL (4-19); BUN/Creat Ratio 18.3 RATIO (10-20); Bilirubin, Direct 0.49 mg/dL (0.00-0.30); Calcium,Total 9.4 mg/dL (7.6-11.0); Carbon Dioxide 20.9 mmol/L (21.0-32.0); Chloride 98 mmol/L (98-108); EST Glomerular Filtration Rate 98 (>60); Estimated Creatinine Clearance 92.42 ml/min (50-250); Globulin 4.4 g/dL (2.2-4.2); Glucose 137 mg/dL (70-99); Lipase 13 U/L (13-75); Sodium Level 133 mmol/L (133-145); Total Bilirubin 0.99 mg/dL (0.00-1.30)
[2025-03-16] MEDS: Piperacil/Tazobactam 4.5 GM in 0.9% Normal Saline (100mL MB+) 100 ML IV (05:55)
--- NOTE | 2025-03-16 07:16 | EX.PCM.CON.S ---
Assessment & Plan Assessment/Plan (1) Perforation of sigmoid colon due to diverticulitis: PLAN: The patient presents with 24 hours of abdominal pain. CT scan revealed perforation of diverticulitis of the sigmoid. I reviewed the patient's CT scan. Her diverticulitis appears to be very low in the pelvis. The inflammation is almost all below the sacral promontory. This is very low in the pelvis and given that it is a holiday I have no urology coverage and I do not have colorectal surgery here at this hospital. I would like to transfer the patient. I reached out to [facility] who accepted the patient. Patient will be transferred to [facility] as per her request. Pedro Franklin MD Pager: [facility] [address] [place] [address], [address] [place] [address] Office: HPI Consult Data Date of Consult: 03/16/25 HPI Narrative HPI Narrative: JOSE LIND, is a 59 F who presents with abdominal pain of 24 hours. She denies fevers or chills. She reports the pain is low in her abdomen but then it became more diffuse. She does have a history of diverticulitis in the past. She was not hospitalized for this. She had a colonoscopy last year which was difficult due to tortuosity from the diverticulitis. [facility] Medical History Colitis Wears glasses Post-menopausal Alcohol use Easy bruising Former smoker Shortness of breath on exertion History of stress test Menorrhagia History of colon polyps Home Medications ?Medication ?Instructions ?Recorded ?Last Taken ?Type loratadine 10 mg tablet 10 mg PO DAILY PRN allergy symptoms 08/23/23 Unknown History naproxen sodium 220 mg tablet 220 mg PO BID PRN pain 08/23/23 Unknown History (Aleve) Allergy/AdvReac Type Severity Reaction Status Date / Time No Known Allergies Allergy Verified 12/22/24 09:55 Family History Grandmother Breast cancer Brother Myocardial infarction Father Myocardial infarction Hypertension Heart disease Brother Cancer lymphoma Mother CVA (cerebral vascular accident) Surgical History Hx of colonoscopy History of hysteroscopy Status post breast reduction Social History household members: spouse current occupational status: employed 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 - [email or web address] Smoking Status: Former smoker quit date: 10/22/20 pack-years: 20 Electronic Cigarette Use: not used alcohol intake: current alcohol intake frequency: holidays/special occasions only substance use type: does not use do you feel safe at home: Yes ROS Constitutional Constitutional: Denies anorexia, chills, fatigue or fever(s) Eyes Eyes: Denies blurry vision ENT HEENT: Denies abnormal hearing Cardiovascular Cardiovascular: Denies chest pain Respiratory/Chest Respiratory/Chest: Denies cough or dyspnea Gastrointestinal Gastrointestinal: Reports abdominal pain, bloating and constipation; Denies nausea or vomiting Genitourinary Genitourinary: Denies change in urinary stream Musculoskeletal Musculoskeletal: Denies abnormal gait Integumentary Integumentary: Denies jaundice or new lesions Neurologic Neurologic: Denies abnormal gait Psychiatric Psychiatric: Denies anxiety Endocrine Endocrinology: Denies flushing Physical Exam Const alert and oriented x3 HEENT normocephalic Eyes PERRL Cardio Rate: regular rate Rhythm: regular rhythm GI soft to palpation Inspection: abdominal distention Palpation: tender Lab / Micro Data 03/16/25 03:45 03/16/25 03:45 Labs: Laboratory Results - last 24 hr 03/16/25 03:45: WBC 15.7 H, RBC 4.50, Hgb 14.3, Hct 42.3, MCV 94.0, MCH 31.8, MCHC 33.8, RDW Std Deviation 57.5 H, RDW Coeff of Laura 16.8 H, Plt Count 424, MPV 9.0, Immature Gran % (Auto) 0.600, Neut % (Auto) 89.3 H, Lymph % (Auto) 4.7 L, [place] % (Auto) 5.0, Eos % (Auto) 0.1, Baso % (Auto) 0.3, Absolute Neuts (auto) 14.0 H, Absolute Lymphs (auto) 0.74 L, Nucleated RBC % 0, Sodium 133, Potassium 4.0, Chloride 98, Carbon Dioxide 20.9 L, Anion Gap 15, BUN 13, Creatinine 0.70, Estim Creat Clear Calc 92.42, Est GFR (MDRD) Non-Af 98, BUN/Creatinine Ratio 18.3, Glucose 137 H, Calcium 9.4, Total Bilirubin 0.99, Direct Bilirubin 0.49 H, AST 19, ALT 14, Alkaline Phosphatase 93, Total Protein 8.0, Albumin 3.6, Globulin 4.4 H, Lipase 13, Urine Color Yellow, Urine Clarity Sl. Cloudy, Urine pH 5.0, Ur Specific [place] 1.025, Urine Protein 100 H, Urine Glucose (UA) Normal, Urine Ketones 50 H, Urine Occult Blood 25 H, Urine Nitrite Negative, Urine Bilirubin 1 H, Urine Urobilinogen 4 H, Ur Leukocyte Esterase 25 H, Urine RBC 0 SEEN, Urine WBC 0-5 SEEN, Ur Squamous Epith Cells 5-10 SEEN, Urine Bacteria 2+, Urine Mucus 3+ Imaging Radiology Impression Abdomen/Pelvis CT 03/16/25 03:52 IMPRESSION: Findings are consistent with acute sigmoid diverticulitis with kay perforation and pelvic phlegmon and pneumoperitoneum as described above. Findings discussed verbally by myself with Dr. Abrams at 5:20 a.m. 03/16/2025 Reading Location: [id number] Charges/Coding Visit Charges Inpatient E&M: 65706 Init Hosp L3
[2025-03-16] MEDS: 0.9% Normal Saline (1000mL) 1,000 ML 999 ML IV (07:17)
== END 2025-03-16 08:51 | disposition short-term general hospital (02) ==
PROVIDERS: Emergency Provider Emergency Medicine; PCP Internal Medicine; Visit Provider Emergency Medicine
DX: K57.20 Diverticulitis of large intestine with perforation and abscess without bleeding (principal); Z87.891 Personal history of nicotine dependence
CPT/HCPCS: 74177; 80048; 80076; 81001; 83690; 85025; 96361; 96365; 96366; 96375; 96376; 99284; Q9967; A4216; J2405

== ENCOUNTER 2025-06-11 05:42 | Day surgery (SDC) | payer OTHER, SELFPAY ==
--- NOTE | 2025-06-10 12:41 | PAT.ANE_ITS ---
Pre-Assessment Diagnosis/Proposed Procedure Planned Operative Procedure(s): COLONOSCOPY Anesthesia History Anesthesia History - usability specialist: Anesthesia History - usability specialist Hx Hospitalization Yes: 03/16/25 BOWEL RUPTURE/ 06/10/25 08:37 COLOSTOMY Any Problems With Anesthesia No 06/10/25 08:37 Cholinesterase deficiency No 06/10/25 08:37 You/Your Family Experience No 06/10/25 08:37 fever (hyperthermia) with Relationship Recent Exposure to Contagious No 06/16/24 09:42 Disease Does patient have nerve No 06/10/25 08:37 stimulator Patient instructed to have device shut off --Does patient have Pacemaker or ICD? When Was Last Pacemaker Check QUESTION #4 FULL TEXT: You/Your Family Experience fever (hyperthermia) with Anesthesia Last Oral Intake Last Oral intake: Last Oral Intake NPO since Meds taken in AM with sips of water? Meds patient instructed to take am of surgery PONV PONV - usability specialist: PONV - usability specialist Female Yes 06/10/25 08:37 HX of Motion Sickness Yes 06/10/25 08:37 HX of N/V After Surgery No 06/10/25 08:37 Non-Smoker Yes 06/10/25 08:37 Duration of Surgery greater No 06/10/25 08:37 than 60 minutes Number of Risk Factors 3 06/10/25 08:37 PONV Score Moderate Risk 06/10/25 08:37 Height & Weight Height & Weight: Anesthesia: Height & Weight Height 5 ft 10 in 03/16/25 03:32 Respiratory Assessment Respiratory Assessment - usability specialist: Respiratory Tract Infection Hx - usability specialist Hx Respiratory Tract Infection No 06/10/25 08:37 STOP Sleep Apnea STOP Sleep Apnea - usability specialist: STOP Sleep Apnea - usability specialist Hx Hypertension Yes: PT TOOK SELF OFF MEDS 06/10/25 08:37 Hx Sleep Apnea No 06/10/25 08:37 CPAP BIPAP Do you snore loudly (louder No 06/10/25 08:37 than talking or can be heard Do you often feel tired/ No 06/10/25 08:37 fatigued/ sleepy during daytime? Has anyone observed you stop No 06/10/25 08:37 breathing during sleep? STOP Results Negative 06/10/25 08:37 QUESTION #5 FULL TEXT : Do you snore loudly (louder than talking or can be heard through closed doors)? 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 Specify any problems Hx of Preganancy in last 3 No 06/10/25 08:37 Months Nurse Filling Out Transfusion MGRIPANFILOITH 06/10/25 08:37 & Questions: Date: 06/10/25 06/10/25 08:37 Time: 08:39 06/10/25 08:37 Patient unable to answer at this time (ie. confused, unrespo /Reproduction History /Reproductive History - usability specialist: /Reproductive Hx- usability specialist Hx Now No 06/10/25 08:37 Gestational Age (in weeks): EDC: Hx Hx Para Hx Section SAB No 06/10/25 08:37 PFSH Medical History (Updated 06/10/25 @ 08:47 by Indy Alvarez) Low iron Dietary restriction Cardiology follow-up encounter Hypertension History of irregular heartbeat Colitis Wears glasses Post-menopausal Alcohol use Easy bruising Former smoker Shortness of breath on exertion History of stress test Menorrhagia History of colon polyps Home Medications ?Medication ?Instructions ?Recorded ?Last Taken ?Type loratadine 10 mg tablet 10 mg PO DAILY PRN allergy s ymptoms 08/23/23 Unknown History naproxen sodium 220 mg tablet 220 mg PO BID PRN pain 1 10/23/22 Unknown History (Aleve) aspirin 81 mg tablet 81 mg PO QDAY 04/16/2506/03 History metoprolol tartrate 50 mg tablet 50 mg PO BID 04/16/25 Unknown History polyethylene glycol 3350 17 17 g PO QDAY 04/16/25 Unkn own History gram/dose oral powder (Miralax) sennosides 8.6 mg capsule (senna) 8.6 mg PO BID Unknown History Allergy/AdvReac Type Severity Reaction Status Date / Time No Known Allergies Allergy Verified 06/10/25 08:33 Family History Grandmother Breast cancer Brother Myocardial infarction Father Myocardial infarction Hypertension Heart disease Brother Cancer lymphoma Mother CVA (cerebral vascular accident) Surgical History (Updated 06/10/25 @ 08:36 by Indy Alvarez) History of colostomy History of colectomy Hx of colonoscopy History of hysteroscopy Status post breast reduction Social History household members: spouse current occupational status: employed 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 EF of 51%. No areas of reversibility to note ischemia. And no previous infarct. Recommendation Anesthesia Recommendation Anesthesia recommendation: OPTIMIZED for anesthesia
[2025-06-11] VITALS (8 sets, daily range): BP systolic 108–136; BP diastolic 81–99; PULSE 69–86; RESP 14–16; TEMP 36.1–36.3; O2SAT 94–99; BMI 25.0
--- OUTSIDE RECORDS SUMMARY | 2025-06-11 05:46 | XMS RPT_ITS | CCD ---
Author Organization 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 Rosibel Godfrey Attending Provider [phone] Dr. Rosibel Godfrey Primary Care Provider Dr. Rosibel Godfrey Referring Provider [phone] Nurse, Surgery Attending Provider Unavailable Rosibel Godfrey MD Primary Care Provider ROSIBEL GODFREY Primary Care Unavailable MILLI SUNG Referring Unavailable MILLI SUNG Attending Unavailable MILLI SUNG Admitting Unavailable Rosibel Godfrey MD Primary Care Provider [phone] MILLI SUNG Referring Unavailable MILLI SUNG Attending Unavailable BEKAH, ROSIBEL G Primary Care Unavailable Bekah CASTILLO, Dr. Erickson Primary Care Provider Bekah CASTILLO, Dr. Erickson Attending Provider Bekah CASTILLO, Dr. Erickson Referring Provider Bekah CASTILLO, Dr. Erickson Other Provider Laya CASTILLO, Dr. Heath Attending Provider Jose Alberto WADE, Dr. Aguilar Emergency Provider Noemi CASTILLO, Dr. Vasquez Attending Provider No, Physician Primary Care Provider Unavailabl e No, Physician Primary Care Provider Unavailabl e Jose Alberto WADE, Dr. Aguilar Attending Provider Jose Alberto WADE, Dr. Aguilar Referring Provider Hilario WADE, Dr. Hirsch Attending Provider NO, PHYSICIAN Primary Care Unavailable SYSTEM, PROVIDER NOT IN Referring Unavaila ble [facility]YSICI[facility], [facility] Consulting Unav LAVINIA Diego Admitting Unavailable RADHA GOODE Attending Unavailable DAVID NEIL Consulting Unavaila ble System, Provider Not In Primary Care Provider Un available No, Physician Primary Care Provider Unavailabl e NO, PHYSICIAN Primary Care Unavailable MADI BRYANT Attending Unavailable MADI BRYANT Attending Unavailable NO, PHYSICIAN Primary Care Unavailable SYSTEM, PROVIDER NOT IN Primary Care Unavaila ble ROWAN MCCLELLADN Attending Unavailab MADI Jorge Attending Unavailable NO, PHYSICIAN Primary Care Unavailable [place], Rosibel Referring Unavailable [place], Rosibel Primary Care Unavailable Torrey Rich Attending Unavailable [place], Rosibel Attending Unavailable Bekah, Rosibel Primary Care Unavailable Bekah, Rosibel Referring Unavailable Bekah, Rosibel Attending Unavailable [place], Rosibel Primary Care Unavailable [place], Rosibel Referring Unavailable Bekah, Rosibel Consulting Unavailable Kumar Asif Attending Unavailable [place], Rosibel Primary Care Unavailable Pedro Franklin Attending Unavailable [place], Rosibel Primary Care Unavailable Jeff Abrams Referring Unavailable [place], Rosibel Referring Unavailable [place], Rosibel Primary Care Unavailable Friend, Torrey Attending Unavailable Bekah, Rosibel Primary Care Unavailable Friend, Torrey Attending Unavailable [place], Rosibel Primary Care Unavailable Jeff Abrams Attending Unavailable Bekah, Rosibel Referring Unavailable [place], Rosibel Primary Care Unavailable Friend, Torrey Consulting Unavailable Friend, Torrey Attending Unavailable Bekah, Rosibel Referring Unavailable Bekah, Rosibel Primary Care Unavailable Bekah, Rosibel Attending Unavailable Rosibel Godfrey MD Primary Care Provider STERLING LIVINGSTON Referring Unavailable STERLING LIVINGSTON Attending Unavailable BEKAH, ROSIBELOSMAN MAJOR Primary Care Unavailable Medications Current Medications Medication Drug Class(es) Dates Sig (Normalized) Sig (Original) aspirin 81 mg oral tablet (20 sources) Platelet Aggregation Inhibitor, Nonsteroidal Anti-inflammatory Drug Start: 04-16-2025 take 1 tablet by mouth once daily Aspirin 81 mg tablet Active 81 mg PO daily April 16, 2025 12:00am Start: 03-25-2025 End: 05-02-2025 take 1 tablet by mouth once daily aspirin 81 MG EC tablet Take 1 (one) tablet (81 mg total) by mouth daily Start: 04/02/25. 30 tablet 04/01/2025 12:38 PM EDT 04/02/2025 05/02/2025 Start: 10-05-2010 End: 05-20-2024 take 1 tablet by mouth once daily Aspirin 81 mg tablet,delayed release (DR/EC) Discontinued 81 mg PO DAILY March 14, 2024 12:00am May 20, 2024 9:21am aspirin 81 mg ch ewable tablet Chew and Swallow 1 (one) tablet (81 mg total) daily . Active Comment on above: Take one(1) tablet d aily. Azelate (4 sources) AZELAIC ACID (FI NACEA TOPICAL) Apply to affected area. Active AZELAIC ACID (FI NACEA TOPICAL) Apply to affected area. 0 Active Comment on above: Apply to affected ar ea. Doxycycline (4 sources) Tetracycline-class Drug DOXYCYCL INE MONOHYDRATE ORAL Take by mouth. Active DOXYCYCLINE MONO HYDRATE ORAL Take by mouth. 0 Active Comment on above: Take by mouth. loratadine 10 mg oral tablet (6 sources) Start: 3 take 1 tablet by mouth once daily as needed Loratadine 10 mg tablet Active 10 mg PO DAILY as needed for allergy symptoms August 23, 2023 12:00am losartan potassium 25 mg oral tablet (3 sources) Angiotensin 2 Receptor Cam Start: 5 End: 6 take 1 tablet by mouth once daily losartan (COZAAR) 25 MG tablet Indications: Nonischemic cardiomyopathy (HCC) Take 1 (one) tablet (25 mg total) by mouth daily . 90 tablet 1 05/08/2025 05/08/2026 Active 24 hr metoprolol succinate 50 mg extended release oral tablet (20 sources) beta-Adrenergic Cam Start: 5 End: 6 take 1 tablet by mouth once daily metoprolol succinate (Toprol XL) 50 MG 24 hr tablet Indications: Nonischemic cardiomyopathy (HCC) Take 1 (one) tablet (50 mg total) by mouth daily . 90 tablet 1 05/08/2025 05/08/2026 Active Start: 04-01-2025 End: 05-08-2025 take 1 tablet by mouth twice daily metoprolol tartrate (LOPRESSOR) 50 MG tablet Take 1 (one) tablet (50 mg total) by mouth 2 (two) times a day . 60 tablet 04/01/2025 12:38 PM EDT 04/01/2025 05/08/2025 Discontinued (Alternate therapy) Start: 03-25-2025 End: 04-01-2025 Start: 03-18-2025 End: 03-18-2025 Start: 03-18-2025 End: 04-01-2025 naproxen sodium 220 mg oral tablet (19 sources) Nonsteroidal Anti-inflammatory Drug Start: 08-23-2023 take 1 tablet by mouth twice daily as needed for pain Naproxen Sodium (Aleve) 220 mg tablet Active 220 mg PO TWICE A DAY as needed for pain August 23, 2023 12:00am naproxen sodium (ALEVE ORAL) Take by mouth . Active NAPROXEN SODIUM (ALEVE ORAL) Take 3 tablets by mouth as needed (joint pain). Active NAPROXEN SODIUM (ALEVE ORAL) Take 3 tablets by mouth as needed (joint pain). 0 Active NAPROXEN SODIUM (ALEVE ORAL) Take by mouth. 0 Active Comment on above: Take by mouth. Take 3 tablets by mo ut as needed (joint pain). oxyCODONE hydrochloride 5 mg oral tablet (16 sources) Opioid Agonist Start: End: take 1 tablet by mouth every six hours as needed for pain oxyCODONE (ROXICODONE) 5 MG immediate release tablet Indications: Diverticulitis of colon with perforation Take 1 (one) tablet (5 mg total) by mouth every 6 (six) hours as needed for pain . 15 tablet 04/01/2025 11:41 AM EDT 04/01/2025 Active Start: 03-18-2025 End: 04-01-2025 take 5-10 mg under the tongue every four hours as need ed Start: 03-17-2025 End: 03-18-2025 take 5-10 mg by mouth every four hours as needed Start: 03-16-2025 End: 03-16-2025 take 5-10 mg under the tongue every four hours as need ed polyethylene glycol 3350 43846 mg powder for oral solution (11 sources) Osmotic Laxative Start: 04-16-2025 Polyethylene Glycol 3350 (Miralax) 17 gram/dose powder Active 17 g PO daily April 16, 2025 12:00am Start: 03-29-2025 End: 04-01-2025 red yeast rice 600 mg oral capsule (4 sources) Start: 01-13-2008 RED YEAST RICE EXTRACT 600 MG CAP Take one(1) tablet two(2) times daily. 0 01/13/2008 Active Comment on above: Take one(1) tablet t wo(2) times daily. sennosides (SENNA LAX ORAL) (3 sources) sennosides (JATIN A LAX ORAL) Take by mouth 2 (two) times a day . Active sennosides, halfway 8.6 mg oral capsule (1 source) Start: 04-16-2025 take 1 capsule by mouth twice daily Sennosides (Senna) 8.6 mg capsule Active 8.6 mg PO TWICE A DAY April 16, 2025 12:00am Completed/Discontinued Medications Medication Drug Class(es) Dates Sig (Normalized) Sig (Original) acetaminophen 325 mg oral tablet (1 source) Start: 03-24-2025 End: 04-01-2025 take 650 mg by mouth every six hours as needed for pain and headache amoxicillin 875 mg / clavulanate 125 mg oral tablet (11 sources) Penicillin-class Antibacterial Start: 04-01-2025 End: 04-11-2025 take 1 tablet by mouth twice daily amoxicillin-clav ulanate (AUGMENTIN) 875-125 mg per tablet Take 1 (one) tablet by mouth 2 (two) times a day for 10 days . 20 tablet 04/01/2025 11:41 AM EDT 04/01/2025 04/11/2025 Start: 04-01-2025 End: 04-11-2025 Start: 12-22-2024 End: 03-16-2025 Amoxicillin-Pot Clavulanate 875-125 mg tablet Discontinued 1 {tbl} PO Q8H December 22, 2024 1:00am March 16, 2025 5:39am atorvastatin 40 mg oral tablet (12 sources) HMG-CoA Reductase Inhibitor Start: 03-25-2025 End: 05-08-2025 take 1 tablet by mouth once daily atorvastatin (LIPITOR) 40 MG tablet Take 1 (one) tablet (40 mg total) by mouth nightly . 30 tablet 04/01/2025 05/08/2025 Discontinued (Patient's Request) benzocaine 200 mg/ml mucosal spray (1 source) Standardized Chemical Allergen Start: 03-21-2025 End: 04-01-2025 calcium chloride 0.001 meq/ml / glucose 50 mg/ml / potassium chloride 0.004 meq/ml / sodium chloride 0.103 meq/ml / sodium lactate 0.028 meq/ml injectable solution (1 source) Start: 03-17-2025 End: 03-23-2025 calcium chloride 0.0014 meq/ml / potassium chloride 0.004 meq/ml / sodium chloride 0.103 meq/ml / sodium lactate 0.028 meq/ml injectable solution (5 sources) Start: 03-23-2025 End: 03-27-2025 Start: 03-16-2025 End: 03-17-2025 ciprofloxacin 500 mg oral tablet (4 sources) Quinolone Antimicrobial Start: 06-16-2024 End: 12-22-2024 take 1 tablet by mouth twice daily Ciprofloxacin Hcl 500 mg tablet Discontinued 500 mg PO TWICE A DAY June 16, 2024 12:00am December 22, 2024 11:02am cyclobenzaprine hydrochloride 10 mg oral tablet (6 sources) Muscle Relaxant Start: 03-28-2025 End: 04-11-2025 take 1 tablet by mouth every eight hours cyclobenzaprine (FLEXERIL) 10 MG tablet Take 1 (one) tablet (10 mg total) by mouth every 8 (eight) hours for 10 days . 30 tablet 04/01/2025 12:38 PM EDT 04/01/2025 04/11/2025 2 ml diazePAM 5 mg/ml prefilled syringe (1 source) Benzodiazepine Start: 03-23-2025 End: 03-23-2025 dicyclomine hydrochloride 20 mg oral tablet (4 sources) Anticholinergic Start: 06-25-2024 End: 12-22-2024 take 1 tablet by mouth three times daily Dicyclomine 20 mg tablet Discontinued 20 mg PO THREE TIMES A DAY June 25, 2024 12:00am December 22, 2024 11:02am docusate sodium 50 mg / sennosides, halfway 8.6 mg oral tablet (9 sources) Start: 04-01-2025 End: 05-01-2025 take 1 tablet by mouth twice daily senna-docusate (SENNA-S) 8.6-50 mg Take 1 (one) tablet by mouth 2 (two) times a day . 60 tablet 04/01/2025 05/01/2025 Start: 03-29-2025 End: 05-01-2025 Drug or medicament (substanc e) (2 sources) Start: 03-20-2025 End: 03-20-2025 Start: 03-20-2025 End: 03-20-2025 0.4 ml enoxaparin sodium 100 mg/ml prefilled syringe (1 source) Low Molecular Weight Heparin Start: 03-17-2025 End: 04-01-2025 1 ml fentaNYL 0.05 mg/ml injection (1 source) Opioid Agonist Start: 03-16-2025 End: 03-16-2025 0.5 ml HYDROmorphone hydrochloride 1 mg/ml prefilled syringe (1 source) Opioid Agonist Start: 03-16-2025 End: 03-28-2025 take 0.5-1 mg intravenously every three hours as needed 1 ml ketorolac tromethamine 30 mg/ml injection (1 source) Nonsteroidal Anti-inflammatory Drug, Cyclooxygenase Inhibitor Start: 03-17-2025 End: 03-19-2025 take 15 mg intravenously every six hours Lidocaine (1 source) Antiarrhythmic, Amide Local Anesthetic Start: 03-23-2025 End: 03-23-2025 take 1 mL intradermal route every twenty-four hours as needed 50 ml magnesium sulfate 40 mg/ml injection (5 sources) Start: 03-28-2025 End: 03-28-2025 Start: 03-24-2025 End: 03-25-2025 Start: 03-22-2025 End: 03-22-2025 Start: 03-18-2025 End: 03-18-2025 10 ml methocarbamol 100 mg/ml injection (1 source) Muscle Relaxant Start: 03-17-2025 End: 03-19-2025 take 1 g intravenously every eight hours 100 ml metroNIDAZOLE 5 mg/ml injection (5 sources) Nitroimidazole Antimicrobial Start: 03-16-2025 End: 03-16-2025 Start: 06-16-2024 End: 12-22-2024 take 1 tablet by mouth three times daily Metronidazole 500 mg tablet Discontinued 500 mg PO THREE TIMES A DAY 42 June 16, 2024 12:00am December 22, 2024 11:02am nitroglycerin 0.4 mg sublingual tablet (1 source) Nitrate Vasodilator Start: 03-25-2025 End: 04-01-2025 2 ml ondansetron 2 mg/ml injection (2 sources) Serotonin-3 Receptor Antagonist Start: 03-16-2025 End: 04-01-2025 take 4 mg intravenously every six hours as needed for nausea and vomiting piperacillin 3000 mg / tazobactam 375 mg injection (3 sources) Penicillin-class Antibacterial, beta Lactamase Inhibitor Start: 03-23-2025 End: 03-30-2025 take 3.375 g intravenously every eight hours Start: 03-16-2025 End: 03-20-2025 take 3.375 g intravenously every eight hours polyethylene glycol 3350 159645 mg / potassium chloride 2970 mg / sodium bicarbonate 6740 mg / sodium chloride 5860 mg / sodium sulfate 72747 mg powder for oral solution (6 sources) Osmotic Laxative Start: 12-22-2024 End: 03-16-2025 Peg 3350-Electrolytes 236-22.74-6.74 -5.86 gram recon soln Discontinued mL PO As Directed December 22, 2024 1:00am March 16, 2025 5:40am Start: 01-31-2024 End: 01-31-2024 peg 3350-Electrolytes (GOLYT GIFTY) 236-22.74-6.74 -5.86 gram suspension Indications: History of colonic polyps Take 4,000 mL by mouth one time only for 1 dose. Refer to printed prep instructions from your provider. 4000 mL 0 01/31/2024 01/31/2024 Active Start: 01-14-2024 End: 01-14-2024 peg 3350-Electrolytes (GOLYT GIFTY) 236-22.74-6.74 -5.86 gram suspension Indications: History of colonic polyps Take 4,000 mL by mouth one time only for 1 dose. Refer to printed prep instructions from your provider. 4000 mL 0 01/14/2024 01/14/2024 Comment on above: Take 4,000 mL by lisa th one time only for 1 dose. Refer to printed prep instructions from your provider. 100 ml potassium chloride 0. 2 meq/ml injection (5 sources) Start: 03-23-2025 End: 03-24-2025 Start: 03-22-2025 End: 03-22-2025 Start: 03-19-2025 End: 03-19-2025 Start: 03-18-2025 End: 03-18-2025 prochlorperazine 5 mg/ml injectable solution (1 source) Phenothiazine Start: 03-18-2025 End: 04-01-2025 take 5 mg intravenously every six hours as needed for nausea and vomiting 125 ml sodium chloride 9 mg/ml prefilled syringe (13 sources) Start: 04-01-2025 End: 05-01-2025 sodium chloride, PF, (NS) injection Indications: Diverticulitis of colon with perforation Inject 10mL into drain tubing daily for 21 days . 300 mL 04/01/2025 11:41 AM EDT 04/01/2025 05/01/2025 Start: 03-26-2025 End: 04-01-2025 Start: 03-23-2025 End: 05-01-2025 Start: 03-16-2025 End: 03-16-2025 (6 sources) Start: 03-30-2025 End: 03-30-2025 Start: 03-30-2025 End: 03-30-2025 Start: 03-26-2025 End: 03-26-2025 Start: 03-25-2025 End: 03-25-2025 Start: 03-22-2025 End: 03-22-2025 Start: 03-22-2025 End: 03-22-2025 (9 sources) Start: 03-26-2025 End: 03-27-2025 Start: 03-25-2025 End: 03-26-2025 Start: 03-24-2025 End: 03-25-2025 Start: 03-23-2025 End: 03-24-2025 Start: 03-23-2025 End: 04-01-2025 Start: 03-18-2025 End: 03-18-2025 Start: 03-17-2025 End: 03-17-2025 Start: 03-16-2025 End: 04-01-2025 [Order 1 Start] Name: naloxo ne (NARCAN) injection 0.1 mg Signed Summary: 0.1 mg, Intravenous, As needed, opioid reversal, For respiratory rate less than or equal to 8 per minute., Starting on Sun03/16/25 at 1330, Mix nalOXone (NARCAN) 0.4 mg (1mL) with 9 mL of Normal Saline to total 10 mL. Administer 0.1 mg (2.5mL) IV Push every 2 minutes until respiratory rate is 10 or greater. [Order 1 End] [Order 2 Start] Name: Notify physician Signed Summary: STAT, Until discontinued, Starting on Sun03/16/25 at 1335, Until Specified, Respiratory rate less than: 8, For respiratory rate less than or equal to 8, notify physician and/or appropriate staff for additional orders. [Order 2 End] [Order 3 Start] Name: naloxone (NARCAN) injection 0.4 mg Signed Summary: 0.4 mg, Intravenous, As needed, opioid reversal, patient is pulseless, breathless, and unresponsive, Starting on Sun03/16/25 at 1330, Call a code first, then administer naloxone dose undiluted IV Push over 30 seconds. [Order 3 End] Start: 03-16-2025 End: 04-01-2025 [Order 1 Start] Name: Insert peripheral IV Signed Summary: LENORE, Once, On Sun03/16/25 at 1050, For 1 occurrence [Order 1 End] [Order 2 Start] Name: Saline lock IV Signed Summary: LENORE, Once, On Sun03/16/25 at 1050, For 1 occurrence [Order 2 End] [Order 3 Start] Name: sodium chloride (PF) (NS) flush 5 mL Signed Summary: 5 mL, Intravenous, As needed, line care, Starting on Sun03/16/25 at 1050 [Order 3 End] [Order 4 Start] Name: sodium chloride 0.9% (NS) Signed Summary: 0-150 mL/hr, Intravenous, As needed, To flush line after IV infusions when no maintenance IV ordered or a compatibility issue. Infuse 20ml at the same rate as the secondary infusion, Starting on Sun03/16/25 at 1050, Run as Primary IV. NOT intended for KVO. [Order 4 End] (1 source) Start: 03-23-2025 End: 03-23-2025 (1 source) Start: 03-20-2025 End: 03-22-2025 (1 source) Start: 03-18-2025 End: 03-20-2025 Problems Active Problems Problem Classification Problem Date Documented Da te Episodic/Chronic Abdominal pain (7 sources) Left lower quadrant pain; Translations: [Left lower quadrant pain] Onset: 03-31-2025 12-22-2024 Episodic Cardiac dysrhythmias (3 sources) Tachycardia; Translations: [Tachycardia, unspecified] Onset: 05-08-2025 05-08-2025 Episodic Coronary atherosclerosis and other heart disease (5 sources) Ischemic myocardial dysfunction; Translations: [Ischemic cardiomyopathy] Onset: 05-08-2025 04-04-2025 Chronic Diseases of white blood cells (4 sources) Leukocytosis; Translations: [Elevated white blood cell count, unspecified] Onset: 03-16-2025 04-01-2025 Chronic Disorders of lipid metabolism (2 sources) Hyperlipidemia, unspecified; Translations: [Hyperlipidemia, unspecified] Onset: 05-31-2021 Chronic Diverticulosis and diverticulitis (20 sources) Perforation of sigmoid colon due to diverticulitis; Translations: [Diverticulitis of large intestine with perforation and abscess without bleeding] Onset: 03-16-2025 03-16-2025 Chronic Menstrual disorders (4 sources) Menorrhagia; Translations: [Excessive and frequent menstruation with regular cycle] Onset: 08-26-2012 08-26-2012 Chronic Other aftercare (2 sources) Surgical follow-up; Translations: [Encounter for surgical aftercare following surgery on the digestive system] 04-01-2025 Episodic Other aftercare (2 sources) Encounter for surgical aftercare following surgery on the digestive system; Translations: [Encounter for surgical aftercare following surgery on the digestive system] Onset: 03-16-2025 Episodic Other and unspecified benign neoplasm (8 sources) History of polyp of colon; Translations: [Personal history of colonic polyps] Onset: 01-31-2024 01-14-2024 Episodic Comment on above: Found 2014 and were benign Other and unspecified benign neoplasm (4 sources) Lipoma (clinical); Translations: [Benign lipomatous neoplasm, unspecified] 12-22-2024 Episodic Other lower respiratory disease (4 sources) Dyspnea on exertion; Translations: [Other forms of dyspnea] 12-22-2024 Episodic Other nutritional; endocrine; and metabolic disorders (1 source) Morbid (severe) obesity due to excess calories; Translations: [Morbid (severe) obesity due to excess calories] Onset: 05-31-2021 Chronic Other nutritional; endocrine; and metabolic disorders (1 source) Overweight; Translations: [Overweight] Onset: 01-13-2022 Episodic Tish-; endo-; and myocarditis; cardiomyopathy (except that caused by tuberculosis or sexually transmitted disease) (3 sources) Cardiomyopathy; Translations: [Other cardiomyopathies] Onset: 05-08-2025 05-08-2025 Chronic Peritonitis and intestinal abscess (4 sources) Abdominal abscess; Translations: [Peritoneal abscess] Onset: 03-16-2025 04-01-2025 Episodic Residual codes; unclassified (4 sources) Medication refused; Translations: [Immunization not carried out because of patient refusal] 12-22-2024 Episodic Unclassified (2 sources) Post-op Onset: 04-07-2025 Past or Other Problems Problem Classification Problem Date Documented Da te Episodic/Chronic Malaise and fatigue (2 sources) Other fatigue; Translations: [Other fatigue] Onset: 05-31-2021 Episodic Mood disorders (10 sources) Mood disorders Onset: 03-22-2025 03-22-2025 Nonspecific chest pain (6 sources) Chest pain; Translations: [Chest pain, unspecified] Onset: 01-02-2025 12-22-2024 Episodic Other and unspecified benign neoplasm (2 sources) Personal history of colonic polyps; Translations: [History of colonic polyps] Onset: 01-31-2024 Episodic Other circulatory disease (3 sources) Elevated blood-pressure reading, without diagnosis of hypertension; Translations: [Elevated blood-pressure reading, without diagnosis of hypertension] Onset: 05-31-2021 Episodic Other screening for suspected conditions (not mental disorders or infectious disease) (7 sources) Encounter for screening for diseases of the blood and blood-forming organs and certain disorders involving the immune mechanism; Translations: [Patient encounter status] Onset: 01-13-2022 12-22-2024 Episodic Results Test Name Value Interpretation Reference Range Facility CT ABDOMEN PELVIS WITH IV CO NTRAST ONLYon 06-03-2025 CT ABDOMEN PELVIS WITH IV CONTRAST ONLY EXAMINATION: CT ABDOMEN PELVIS WITH IV CONTRAST ONLY HISTORY: Diverticulitis of colon with perforation Injury/Trauma or Illness?:Illness/Othe r How long have you had these symptoms (acute/chronic)?:Acut e Reason for exam?:Eval for intraabdominal abscess, Diverticulitis of colon with perforation Type of Exam?:Subsequent/Foll ow-up Additional signs and symptoms?:no K57.20 Diverticulitis of colon with perforation COMPARISON: CT from 03/30/2025. TECHNIQUE: CT examination of the abdomen and pelvis following the administration of intravenous contrast. Coronal and sagittal reformations were performed. Dose reduction techniques were achieved by using automated exposure control and/or adjustment of mA and/or kV according to patient size and/or use of iterative reconstruction technique. CONTRAST: IOPAMIDOL 370 MG IODINE/ML (76 %) INTRAVENOUS SOLUTION - 75 mL, FINDINGS: LOWER CHEST: No acute abnormalities. ABDOMEN: Liver: Hepatic cysts are present, the largest in the superomedial right lobe measuring about 3 cm. No concerning hepatic mass. Normal size and contour. Liver is incompletely evaluated on a single phase of contrast exam. Bile ducts: Normal caliber. Gallbladder: Contracted gallbladder. There may be sludge or small stones present. No cholecystitis. Pancreas: Normal. Spleen: Normal. Adrenals: Normal. Kidneys: Normal. PELVIS: Reproductive organs: Heterogenous appearance of the uterus. Uterine fibroids could have this appearance but other etiologies are not excluded. Uterus could be further evaluated with ultrasound. Ovarian follicular changes bilaterally. No adnexal mass definitively identified. Ureters: Normal. Bladder: Incomplete distention limits evaluation. As imaged, bladder is negative. OTHER ABDOMEN AND PELVIS: Bowel: No acute abnormalities involving the nondistended stomach. There has been removal of the pelvic drain since the prior exam. There is still significant wall thickening involving the sigmoid colon in the deep pelvis with adjacent inflammatory fatty stranding present. 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 It extends anteriorly to the left into the region of the left adnexa and more proximal sigmoid colon as visualized on axial image 94. It also extends anteriorly and to the right, in the direction of some loops of small bowel, also seen on axial image 92. Left lower quadrant ostomy present. No sizable parastomal hernia. No bowel obstruction. No new areas of infectious or inflammatory disease involving the large or small bowel. No appendicitis. Peritoneum: As above. Vessels: Upper limits of normal cardiac size. No pericardial effusion. Atherosclerotic vessel disease. No aortic aneurysm. No portal vein thrombus. Lymph nodes: No enlarged inguinal or pelvic sidewall lymph nodes present. No aortocaval, retroperitoneal or mesenteric adenopathy. Abdominal wall: Normal. Osseous structures: Transitional anatomy at L5-S1. No acute or destructive osseous abnormalities. IMPRESSION: 1. Persistent wall thickening of the rectosigmoid colon with inflammatory stranding and unorganized fluid present in the pelvis. 2. 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 Continued short-term follow-up recommended. 3. Additional incidental findings as above. [facility]/ Workstation ID: [id number] Dictated by: MARIE PARSONS on SunJun 04, 2025 7:40:35 AM EDT Transcribed by: KATELYN VIVAS on SunJun 04, 2025 7:49:38 AM EDT Finalized by: MARIE PARSONS on [facility] Jun 04, 2025 7:52:16 AM EDT [facility] Comment on above: Order Comment: Injur y/Trauma or Illness?:Illness/Other How long have you had these symptoms (acute/chronic)?:Acute Reason for exam?:Eval for intraabdominal abscess, Diverticulitis of colon with perforation Type of Exam?:Subsequent/Follow-up Additional signs and symptoms?:no ECG 12 [place]on 05-08-2025 Atrial Rate [facility] P [place] [facility] P-R Interval [facility] Q-T Interval [facility] Q-T Interval (corrected) [facility] QRS Duration [facility] QTC Calculation (Bezet) [facility] [place] [facility] T [place] [facility] Ventricular Rate [facility] th [facility] Gastroenterology Visit Repor ton 04-16-2025 Gastroenterology Visit Report [facility] Gastroenterology [address] [place] [address] OFFICE VISIT Date of Service: 04/16/25 MR#: [id number] Acct: [id number] Name: JOSE LIND Rep #: [id number] : 1965 Provider: Torrey Rich DO Age/Sex: 59/F Location: [facility] Status: Signed Intake Vital Signs 03/16/25 03:32 Height 5 ft 10 in Intake Visit Reasons: COLOSTOMY BAG-PERFORATED COLON Allergies No Known Allergies Allergy (Verified 12/22/24 09:55) Medications ???Medication ???Instructions ???Recorded ???Confirmed ???Type loratadine 10 mg tablet 10 mg PO DAILY PRN allergy symptom s 08/23/23 04/16/25 History naproxen sodium 220 mg tablet 220 mg PO BID PRN pain 08/23/23 History (Aleve) aspirin 81 mg tablet 81 mg PO QDAY 04/16/25 04/16/25 Hi story metoprolol tartrate 50 mg tablet 50 mg PO BID 04/16/25 04/16/25 His tory polyethylene glycol 3350 17 17 g PO QDAY 04/16/25 04/16/25 His tory gram/dose oral powder (Miralax) sennosides 8.6 mg capsule (senna) 8.6 mg PO BID 04/16/25 04/16/25 H istory Nurse's Note: Pt was scheduled for colonoscopy on 06.11.25 at the end of their appt today. Reviewed prep instructions and which medications to hold prior to procedure with pt in office. A paper copy of miralax prep instructions were given to pt. Pt denies any questions or concerns at this time. 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 *I established 05.20.24 pt reports that in late February 2024 she had a routine colonoscopy done in [place] and pt stated that they could not complete the scope due to a kink in colon. Pt had another colonoscopy done in [place] where they had the same problem and could not get the scope through. In between the two colonoscopies pt did a cologuard test that did not come back positive, but showed antibodies. Pt reports that she is feeling well overall and denies GI symptoms of concern at this time. Colonoscopy 06.16.24 Severe diverticulosis in the recto-sigmoid colon, in the sigmoid colon and in the descending colon. There was narrowing of the colon in association with the diverticular opening. There was evidence of diverticular spasm. Tish-diverticular erythema was seen. There was evidence of an impacted diverticulum. Purulent discharge was seen in association with the diverticular opening, suspicious of diverticulitis. There was no evidence of diverticular bleeding. Two 1 to 2 mm polyps at the hepatic flexure, removed with a cold snare. Resected and retrieved. Localized moderate inflammation was found in the transverse colon secondary to ischemic colitis. Biopsied. [facility] ED 03.16.25 ongoing abd pain - transferred to [place] for perforated colon due to diverticulitis. abd/pelvis CT 03.16.25 Findings are consistent with acute sigmoid diverticulitis with kay perforation and pelvic phlegmon and pneumoperitoneum as described above. Surgery with [place] - diverting loop colostomy OV 04.16.25 pt reports that she is feeling well and denies GI symptoms of concern at this time. Pt reports she needs a colonoscopy to assess for reversal of the ostomy. Pt also has questions regarding her ostomy. Exam Const General: cooperative, healthy appearing, no acute distress, well developed, not diaphoretic and not ill appearing Nutritional Appearance: well nourished Orientation: alert and oriented x3 Limitations: mental status not altered HENRI Head: normal to inspection, normocephalic and atraumatic Ears: hearing grossly normal bilaterally Face and sinus: normal facial exam Mouth: oral mucosae normal and moist mucous membranes Teeth and gingiva: dentition normal Throat: po (more content not included)... Normal [facility] BASIC METABOLIC PANELon 06- Anion gap [Moles/Vol] 11 mmol/L Normal 10-20 [facility] Comment on above: Order Comment: Lab r eordered aerobic/anaerobic culture per request on requisition. Performed By: #### 4 [id number] #### [facility] [address] [address] Lew Tim M.D. [id number] Calcium [Mass/Vol] 8.8 mg/dL Normal 8.4-10.2 [facility] Comment on above: Order Comment: Lab r eordered aerobic/anaerobic culture per request on requisition. Performed By: #### 4 6970 #### [facility] [address] [place] [address] Lew Tim M.D. [id number] Chloride [Moles/Vol] 104 mmol/L Normal 98-108 [facility] Comment on above: Order Comment: Lab r eordered aerobic/anaerobic culture per request on requisition. Performed By: #### 4 [id number] #### [facility] [address] [place] [address] Lew Tim M.D. [id number] Creatinine [Mass/Vol] 0.45 mg/dL Normal 0.40-1.10 [facility] Comment on above: Order Comment: Lab r eordered aerobic/anaerobic culture per request on requisition. Performed By: #### 4 [id number] #### [facility] [address] [place] [address] Lew Tim M.D. [id number] EGFR 110 mL/min/1.73 m2 Normal >=60 [facility] Comment on above: Order Comment: Lab r eordered aerobic/anaerobic culture per request on requisition. Result Comment: Marce mated GFR was calculated using the 2020 CKD-EPI creatinine equation. Performed By: #### 4 [id number] #### [facility] [address] [place] [address] Lew Tim M.D. [id number] Glucose [Mass/Vol] 91 mg/dL Normal 65-99 [facility] Comment on above: Order Comment: Lab r eordered aerobic/anaerobic culture per request on requisition. Performed By: #### 4 [id number] #### [facility] [address] [place] [address] Lew Tim M.D. [id number] HCO3 (Bld) [Moles/Vol] 25 mmol/L Normal 21-32 [facility] Comment on above: Order Comment: Lab r eordered aerobic/anaerobic culture per request on requisition. Performed By: #### 4 [id number] #### [facility] [address] [place] [address] Lew Tim M.D. [id number] Potassium [Moles/Vol] 3.9 mmol/L Normal 3.5-5.1 [facility] Comment on above: Order Comment: Lab r eordered aerobic/anaerobic culture per request on requisition. Performed By: #### 4 [id number] #### [facility] [address] [place] [address] Lew Tim M.D. [id number] Sodium [Moles/Vol] 136 mmol/L Normal 135-145 [facility] Comment on above: Order Comment: Lab r eordered aerobic/anaerobic culture per request on requisition. Performed By: #### 4 [id number] #### [facility] [address] [place] [address] Lew Tim M.D. [id number] Urea nitrogen [Mass/Vol] 7 mg/dL Low 8-25 [facility] Comment on above: Order Comment: Lab r eordered aerobic/anaerobic culture per request on requisition. Performed By: #### 4 [id number] #### [facility] [address] [place] [address] Lew Tim M.D. [id number] Urea nitrogen/Creatinine [Mass ratio] 15.6 mg/mg Normal 10.0-20.0 [facility] Comment on above: Order Comment: Lab r eordered aerobic/anaerobic culture per request on requisition. Performed By: #### 4 [id number] #### [facility] [address] [place] [address] Lew Tim M.D. [id number] Basic metabolic 2000 panelon 04-01-2025 Anion gap [Moles/Vol] 11 mmol/L 10 - 2 0 mmol/L [facility] Calcium [Mass/Vol] 8.8 mg/dL 8.4 - 10. 2 mg/dL [facility] Chloride [Moles/Vol] 104 mmol/L 98 - 10 8 mmol/L [facility] Creatinine [Mass/Vol] 0.45 mg/dL 0.40 - 1.10 mg/dL [facility] GFR/1.73 sq M.predicted CKD-EPI (S/P/Bld) [Vol rate/Area] 110 - PINF [facility] Glucose [Mass/Vol] 91 mg/dL 65 - 99 mg/dL [facility] HCO3 [Moles/Vol] 25 mmol/L 21 - 32 mmol/L [facility] Interpretation and review of laboratory results Abnormal [facility] Potassium [Moles/Vol] 3.9 mmol/L 3.5 - 5.1 mmol/L [facility] Sodium [Moles/Vol] 136 mmol/L 135 - 145 mmol/L [facility] Urea nitrogen [Mass/Vol] 7 mg/dL Low 8 - 25 mg/dL [facility] Urea nitrogen/Creatinine [Mass ratio] 15.6 mg/mg 10.0 - 20.0 [facility] CBCon 04-01-2025 AUTO NRBC 0.0 % Normal [facility] Comment on above: Performed By: #### 4 4942 #### [facility] [address] [place] [address] [id number] RMHP[facility] AUTO NRBC ABS COUNT 0.00 K/mcL Normal 0.00-0.00 [facility] Comment on above: Performed By: #### 4 6444 #### [facility] [address] [place] [address] [id number] [facility] Erythrocyte distribution width (RBC) [Ratio] 15.6 % High 11.6-14.8 [facility] Comment on above: Performed By: #### 4 2703 #### [facility] [address] [place] [address] [id number] [facility] Hematocrit (Bld) [Volume fraction] 33.8 % Low 36.0-46.0 [facility] Comment on above: Performed By: #### 4 7712 #### [facility] [address] [place] [address] [id number] [facility] Hemoglobin (Bld) [Mass/Vol] 10.9 g/dL Low 12.0-16.0 [facility] Comment on above: Performed By: #### 4 5932 #### [facility] [address] [place] [address] [id number] [facility] MCH (RBC) [Entitic mass] 31.1 pg Normal 26.0-34.0 [facility] Comment on above: Performed By: #### 4 3608 #### [facility] [address] [place] [address] [id number] [facility] MCV (RBC) [Entitic vol] 96.6 fL Normal 80.0-100.0 [facility] Comment on above: Performed By: #### 4 8980 #### [facility] [address] [place] [address] [id number] [facility] MEAN CORPUSCULAR HEMOGLOBIN CONC 32.2 g/dL Normal 31.0-37.0 [facility] Comment on above: Performed By: #### 0 2620 #### [facility] [address] [place] [address] [id number] [facility] Platelet mean volume (Bld) [Entitic vol] 9.4 fL Normal 9.4-12.4 [facility] Comment on above: Performed By: #### 3 0143 #### [facility] [address] [place] [address] [id number] [facility] Platelets (Bld) [#/Vol] 531 10*3/uL High 150-400 [facility] Comment on above: Performed By: #### 8 5987 #### [facility] [address] [place] [address] [id number] [facility] RBC (Bld) [#/Vol] 3.50 10*6/uL Low 4.00-5.20 [facility] Comment on above: Performed By: #### 4 0399 #### [facility] [address] [place] [address] [id number] [facility] WBC (Bld) [#/Vol] 7.34 10*3/uL Normal 4.50-11.00 [facility] Comment on above: Performed By: #### 4 6932 #### [facility] [address] [place] [address] [id number] [facility] CBC panel Auto (Bld)on 04-01 Erythrocyte distribution width (RBC) [Entitic vol] 15.6 % High 11.6 - 14.8 % [facility] Hematocrit (Bld) [Volume fraction] 33.8 % Low 36.0 - 46.0 % [facility] Hemoglobin (Bld) [Mass/Vol] 10.9 g/dL Low 12.0 - 16.0 g/dL [facility] Interpretation and review of laboratory results Abnormal [facility] MCH (RBC) [Entitic mass] 31.1 pg 26.0 - 34.0 pg [facility] MCHC (RBC) [Mass/Vol] 32.2 g/dL 31.0 - 37.0 g/dL [facility] MCV (RBC) [Entitic vol] 96.6 fL 80.0 - 100.0 fL [facility] Nucleated RBC (Bld) [#/Vol] 0 10*3/uL [facility] Nucleated RBC/100 WBC (Bld) [Ratio] 0 % [facility] Platelet mean volume (Bld) [Entitic vol] 9.4 fL 9.4 - 12.4 fL [facility] Platelets (Bld) [#/Vol] 531 10*3/uL High [facility] RBC (Bld) [#/Vol] 3.5 10*6/uL Low [facility] alth WBC (Bld) [#/Vol] 7.34 10*3/uL [facility] ealth [facility] EKGon 04-01-2025 [facility] MAGNESIUM LEVELon 04-01-2025 Magnesium [Mass/Vol] 1.8 mg/dL Normal 1.6-2.4 [facility] Comment on above: Performed By: #### 4 6109 ####[facility] [address] [place] [address] Lew Tim M.D. [id number] Magnesium Levelon 04-01-2025 Magnesium [Mass/Vol] 1.8 mg/dL 1.6 - 2 .4 mg/dL [facility] No Panel Informationon 04-01 Interpretation and review of laboratory results Normal [facility] PHOSPHORUSon 04-01-2025 Phosphate [Mass/Vol] 3.6 mg/dL Normal 2.7-4.5 [facility] Comment on above: Performed By: #### 4 6299 ####[facility] [address] [place] [address] Lew Tim M.D. [id number] Phosphoruson 04-01-2025 Phosphate [Mass/Vol] 3.6 mg/dL 2.7 - 4 .5 mg/dL [facility] BASIC METABOLIC PANELon 03-22 Anion gap [Moles/Vol] 11 mmol/L Normal 10-20 [facility] Comment on above: Order Comment: Injur y/Trauma or Illness?:Illness/Other How long have you had these symptoms (acute/chronic)?:Unknown Reason for exam?:No ostomy output with advanced diet, evaluate bowel pattern History of cancer?:. Surgeries, chemotherapy, or radiation?:. Type of Exam?:Initial Additional signs and symptoms?:. Performed By: #### 4 6124 ####[facility] [address] [place], [place] [address] Lew Tim M.D. [id number] Calcium [Mass/Vol] 8.5 mg/dL Normal 8.4-10.2 [facility] Comment on above: Order Comment: Injur y/Trauma or Illness?:Illness/Other How long have you had these symptoms (acute/chronic)?:Unknown Reason for exam?:No ostomy output with advanced diet, evaluate bowel pattern History of cancer?:. Surgeries, chemotherapy, or radiation?:. Type of Exam?:Initial Additional signs and symptoms?:. Performed By: #### 4 6124 ####[facility] [address] [place] [address] Lew Tim M.D. [id number] Chloride [Moles/Vol] 100 mmol/L Normal 98-108 [facility] Comment on above: Order Comment: Injur y/Trauma or Illness?:Illness/Other How long have you had these symptoms (acute/chronic)?:Unknown Reason for exam?:No ostomy output with advanced diet, evaluate bowel pattern History of cancer?:. Surgeries, chemotherapy, or radiation?:. Type of Exam?:Initial Additional signs and symptoms?:. Performed By: #### 4 6154 ####[facility] [address] [place], [place] [address] Lew Tim M.D. [id number] Creatinine [Mass/Vol] 0.54 mg/dL Normal 0.40-1.10 [facility] Comment on above: Order Comment: Injur y/Trauma or Illness?:Illness/Other How long have you had these symptoms (acute/chronic)?:Unknown Reason for exam?:No ostomy output with advanced diet, evaluate bowel pattern History of cancer?:. Surgeries, chemotherapy, or radiation?:. Type of Exam?:Initial Additional signs and symptoms?:. Performed By: #### 4 6169 ####[facility] [address] [place] [address] Lew Tim M.D. [id number] EGFR 106 mL/min/1.73 m2 Normal >=60 [facility] Comment on above: Order Comment: Injur y/Trauma or Illness?:Illness/Other How long have you had these symptoms (acute/chronic)?:Unknown Reason for exam?:No ostomy output with advanced diet, evaluate bowel pattern History of cancer?:. Surgeries, chemotherapy, or radiation?:. Type of Exam?:Initial Additional signs and symptoms?:. Result Comment: Marce mated GFR was calculated using the 2020 CKD-EPI creatinine equation. Performed By: #### 4 6143 ####[facility] [address] [place], [place] [address] Lew Tim M.D. [id number] Glucose [Mass/Vol] 84 mg/dL Normal 65-99 [facility] Comment on above: Order Comment: Injur y/Trauma or Illness?:Illness/Other How long have you had these symptoms (acute/chronic)?:Unknown Reason for exam?:No ostomy output with advanced diet, evaluate bowel pattern History of cancer?:. Surgeries, chemotherapy, or radiation?:. Type of Exam?:Initial Additional signs and symptoms?:. Performed By: #### 4 6124 ####[facility] [address] [place], [place] [address] eLw Tim M.D. [id number] HCO3 (Bld) [Moles/Vol] 27 mmol/L Normal 21-32 [facility] Comment on above: Order Comment: Injur y/Trauma or Illness?:Illness/Other How long have you had these symptoms (acute/chronic)?:Unknown Reason for exam?:No ostomy output with advanced diet, evaluate bowel pattern History of cancer?:. Surgeries, chemotherapy, or radiation?:. Type of Exam?:Initial Additional signs and symptoms?:. Performed By: #### 4 6124 ####[facility] [address] [place] [address] Lew Tim M.D. [id number] Potassium [Moles/Vol] 4.0 mmol/L Normal 3.5-5.1 [facility] Comment on above: Order Comment: Injur y/Trauma or Illness?:Illness/Other How long have you had these symptoms (acute/chronic)?:Unknown Reason for exam?:No ostomy output with advanced diet, evaluate bowel pattern History of cancer?:. Surgeries, chemotherapy, or radiation?:. Type of Exam?:Initial Additional signs and symptoms?:. Performed By: #### 4 6124 ####[facility] [address] [place], [place] [address] Lew Tim M.D. [id number] Sodium [Moles/Vol] 134 mmol/L Low 135-145 [facility] Comment on above: Order Comment: Injur y/Trauma or Illness?:Illness/Other How long have you had these symptoms (acute/chronic)?:Unknown Reason for exam?:No ostomy output with advanced diet, evaluate bowel pattern History of cancer?:. Surgeries, chemotherapy, or radiation?:. Type of Exam?:Initial Additional signs and symptoms?:. Performed By: #### 4 6147 ####[facility] [address] [place], [place] [address] Lew Tim M.D. [id number] Urea nitrogen [Mass/Vol] 8 mg/dL Normal 8-25 [facility] Comment on above: Order Comment: Injur y/Trauma or Illness?:Illness/Other How long have you had these symptoms (acute/chronic)?:Unknown Reason for exam?:No ostomy output with advanced diet, evaluate bowel pattern History of cancer?:. Surgeries, chemotherapy, or radiation?:. Type of Exam?:Initial Additional signs and symptoms?:. Performed By: #### 4 6124 ####[facility] [address] [place] [address] Lew Tim M.D. [id number] Urea nitrogen/Creatinine [Mass ratio] 14.8 mg/mg Normal 10.0-20.0 [facility] Comment on above: Order Comment: Injur y/Trauma or Illness?:Illness/Other How long have you had these symptoms (acute/chronic)?:Unknown Reason for exam?:No ostomy output with advanced diet, evaluate bowel pattern History of cancer?:. Surgeries, chemotherapy, or radiation?:. Type of Exam?:Initial Additional signs and symptoms?:. Performed By: #### 4 6124 ####[facility] [address] [place], [place] [address] Lew Tim M.D. [id number] Basic metabolic 2000 panelon 03-31-2025 Anion gap [Moles/Vol] 11 mmol/L 10 - 2 0 mmol/L [facility] Calcium [Mass/Vol] 8.5 mg/dL 8.4 - 10. 2 mg/dL [facility] Chloride [Moles/Vol] 100 mmol/L 98 - 10 8 mmol/L [facility] Creatinine [Mass/Vol] 0.54 mg/dL 0.40 - 1.10 mg/dL [facility] GFR/1.73 sq M.predicted CKD-EPI (S/P/Bld) [Vol rate/Area] 106 - PINF [facility] Glucose [Mass/Vol] 84 mg/dL 65 - 99 mg/dL [facility] HCO3 [Moles/Vol] 27 mmol/L 21 - 32 mmol/L [facility] Interpretation and review of laboratory results Abnormal [facility] Potassium [Moles/Vol] 4 mmol/L 3.5 - 5.1 mmol/L [facility] Sodium [Moles/Vol] 134 mmol/L Low 135 - 145 mmol/L [facility] Urea nitrogen [Mass/Vol] 8 mg/dL 8 - 25 mg/dL [facility] Urea nitrogen/Creatinine [Mass ratio] 14.8 mg/mg 10.0 - 20.0 [facility] Body Fluid Aerobic & Anaerob ic Cultureon 03-31-2025 Bacteria identified Aer cx Nom (Unsp spec) [facility] Bacteria identified Aer cx Nom (Unsp spec) Few Growth (4-10 colonies per plate) Parabacteroides distasonis Abnormal [facility] Interpretation and review of laboratory results Abnormal [facility] Microscopic observation Gram stain Nom (Body fld) Many WBC [facility] Microscopic observation Gram stain Nom (Body fld) No Organisms Seen [facility] Body Fluid Aerobic & Anaerob ic CultureOrdered By: Jennifer Haywood on 03-31-2025 Bacteria identified Aer cx Nom (Unsp spec) [facility] Bacteria identified Aer cx Nom (Unsp spec) Moderate Growth Bacteroides ovatus (B. fragilis Group) Abnormal [facility] Interpretation and review of laboratory results Abnormal [facility] Microscopic observation Gram stain Nom (Body fld) Many WBC [facility] Microscopic observation Gram stain Nom (Body fld) No Organisms Seen [facility] CBCon 03-31-2025 AUTO NRBC 0.0 % Normal [facility] Comment on above: Performed By: #### 4 [id number] #### [facility] [address] [place] [address] 54798 Lew Tim M.D. [id number] AUTO NRBC ABS COUNT 0.00 K/mcL Normal 0.00-0.00 [facility] Comment on above: Performed By: #### 4 4197 #### [facility] [address] [place] [address] 41990 Lew Tim M.D. [id number] Erythrocyte distribution width (RBC) [Ratio] 15.7 % High 11.6-14.8 [facility] Comment on above: Performed By: #### 4 4191 #### [facility] [address] [place], [place] [address] Lew Tim M.D. [id number] Hematocrit (Bld) [Volume fraction] 34.8 % Low 36.0-46.0 [facility] Comment on above: Performed By: #### 4 4197 #### [facility] [address] [place] [address] Lew Tim M.D. [id number] Hemoglobin (Bld) [Mass/Vol] 11.0 g/dL Low 12.0-16.0 [facility] Comment on above: Performed By: #### 4 4197 #### [facility] [address] [place] [address] Lew Tim M.D. [id number] MCH (RBC) [Entitic mass] 31.3 pg Normal 26.0-34.0 [facility] Comment on above: Performed By: #### 4 [id number] #### [facility] [address] [place] [address] Lew Tim M.D. [id number] MCV (RBC) [Entitic vol] 98.9 fL Normal 80.0-100.0 [facility] Comment on above: Performed By: #### 4 [id number] #### [facility] [address] [place], [place] [address] Lew Tim M.D. [id number] MEAN CORPUSCULAR HEMOGLOBIN CONC 31.6 g/dL Normal 31.0-37.0 [facility] Comment on above: Performed By: #### 4 [id number] #### [facility] [address] [place], [place] [address] Lew Tim M.D. [id number] Platelet mean volume (Bld) [Entitic vol] 9.6 fL Normal 9.4-12.4 [facility] Comment on above: Performed By: #### 4 [id number] #### [facility] [address] [place] [address] 18005 Lew Tim M.D. [id number] Platelets (Bld) [#/Vol] 506 10*3/uL High 150-400 [facility] Comment on above: Performed By: #### 4 [id number] #### [facility] [address] [place] [address] 30920 Lew Tim M.D. [id number] RBC (Bld) [#/Vol] 3.52 10*6/uL Low 4.00-5.20 [facility] Comment on above: Performed By: #### 4 4197 #### [facility] [address] [place] [address] 48618 Lew Tim M.D. [id number] WBC (Bld) [#/Vol] 6.62 10*3/uL Normal 4.50-11.00 [facility] Comment on above: Performed By: #### 4 4197 #### [facility] [address] [place] [address] 36334 Lew Tim M.D. [id number] CBC panel Auto (Bld)on 03-31 Erythrocyte distribution width (RBC) [Entitic vol] 15.7 % High 11.6 - 14.8 % [facility] Hematocrit (Bld) [Volume fraction] 34.8 % Low 36.0 - 46.0 % [facility] Hemoglobin (Bld) [Mass/Vol] 11 g/dL Low 12.0 - 16.0 g/dL [facility] Interpretation and review of laboratory results Abnormal [facility] MCH (RBC) [Entitic mass] 31.3 pg 26.0 - 34.0 pg [facility] MCHC (RBC) [Mass/Vol] 31.6 g/dL 31.0 - 37.0 g/dL [facility] MCV (RBC) [Entitic vol] 98.9 fL 80.0 - 100.0 fL [facility] Nucleated RBC (Bld) [#/Vol] 0 10*3/uL [facility] Nucleated RBC/100 WBC (Bld) [Ratio] 0 % [facility] Platelet mean volume (Bld) [Entitic vol] 9.6 fL 9.4 - 12.4 fL [facility] Platelets (Bld) [#/Vol] 506 10*3/uL High [facility] RBC (Bld) [#/Vol] 3.52 10*6/uL Low [facility] WBC (Bld) [#/Vol] 6.62 10*3/uL [facility] MAGNESIUM LEVELon 03-31-2025 Magnesium [Mass/Vol] 1.9 mg/dL Normal 1.6-2.4 [facility] Comment on above: Performed By: #### 4 6299 #### [facility] [address] [place] [address] 73889 Lew Tim M.D. [id number] Magnesium Levelon 03-31-2025 Magnesium [Mass/Vol] 1.9 mg/dL 1.6 - 2 .4 mg/dL [facility] No Panel Informationon 03-31 Interpretation and review of laboratory results Normal [facility] PHOSPHORUSon 03-31-2025 Phosphate [Mass/Vol] 3.8 mg/dL Normal 2.7-4.5 [facility] Comment on above: Performed By: #### L [id number] #### [facility] [address] [place] [address] 93689 Lew Tim M.D. [id number] Phosphoruson 03-31-2025 Phosphate [Mass/Vol] 3.8 mg/dL 2.7 - 4 .5 mg/dL [facility] BASIC METABOLIC PANELon Anion gap [Moles/Vol] 13 mmol/L Normal 10-20 [facility] Comment on above: Order Comment: Injur y/Trauma or Illness?:Illness/Other How long have you had these symptoms (acute/chronic)?:Unknown Reason for exam?:Heart failure, known or suspected, initial workup Type of Exam?:Ongoing Additional signs and symptoms?:n/a Performed By: #### 4 6124 ####[facility] [address] [place], [place] [address] Lew Tim M.D. [id number] Calcium [Mass/Vol] 8.9 mg/dL Normal 8.4-10.2 [facility] Comment on above: Order Comment: Injur y/Trauma or Illness?:Illness/Other How long have you had these symptoms (acute/chronic)?:Unknown Reason for exam?:Heart failure, known or suspected, initial workup Type of Exam?:Ongoing Additional signs and symptoms?:n/a Performed By: #### 4 6124 ####[facility] [address] [place] [address] Lew Tim M.D. [id number] Chloride [Moles/Vol] 101 mmol/L Normal 98-108 [facility] Comment on above: Order Comment: Injur y/Trauma or Illness?:Illness/Other How long have you had these symptoms (acute/chronic)?:Unknown Reason for exam?:Heart failure, known or suspected, initial workup Type of Exam?:Ongoing Additional signs and symptoms?:n/a Performed By: #### 4 6124 ####[facility] [address] [place], [place] [address] Lew Tim M.D. [id number] Creatinine [Mass/Vol] 0.57 mg/dL Normal 0.40-1.10 [facility] Comment on above: Order Comment: Injur y/Trauma or Illness?:Illness/Other How long have you had these symptoms (acute/chronic)?:Unknown Reason for exam?:Heart failure, known or suspected, initial workup Type of Exam?:Ongoing Additional signs and symptoms?:n/a Performed By: #### 4 6124 ####[facility] [address] [place], [place] [address] Lew Tim M.D. [id number] EGFR 104 mL/min/1.73 m2 Normal >=60 [facility] Comment on above: Order Comment: Injur y/Trauma or Illness?:Illness/Other How long have you had these symptoms (acute/chronic)?:Unknown Reason for exam?:Heart failure, known or suspected, initial workup Type of Exam?:Ongoing Additional signs and symptoms?:n/a Result Comment: Marce mated GFR was calculated using the 2020 CKD-EPI creatinine equation. Performed By: #### 4 6135 ####[facility] [address] [place], [place] [address] Lew Tim M.D. [id number] Glucose [Mass/Vol] 102 mg/dL High 65-99 [facility] Comment on above: Order Comment: Injur y/Trauma or Illness?:Illness/Other How long have you had these symptoms (acute/chronic)?:Unknown Reason for exam?:Heart failure, known or suspected, initial workup Type of Exam?:Ongoing Additional signs and symptoms?:n/a Performed By: #### 4 6173 ####[facility] [address] [place], [place] [address] Lew Tim M.D. [id number] HCO3 (Bld) [Moles/Vol] 25 mmol/L Normal 21-32 [facility] Comment on above: Order Comment: Injur y/Trauma or Illness?:Illness/Other How long have you had these symptoms (acute/chronic)?:Unknown Reason for exam?:Heart failure, known or suspected, initial workup Type of Exam?:Ongoing Additional signs and symptoms?:n/a Performed By: #### 4 6181 ####[facility] [address] [place], [place] [address] Lew Tim M.D. [id number] Potassium [Moles/Vol] 3.9 mmol/L Normal 3.5-5.1 [facility] Comment on above: Order Comment: Injur y/Trauma or Illness?:Illness/Other How long have you had these symptoms (acute/chronic)?:Unknown Reason for exam?:Heart failure, known or suspected, initial workup Type of Exam?:Ongoing Additional signs and symptoms?:n/a Result Comment: Estefany villafuerte Hemolyzed Performed By: #### 4 6196 ####[facility] [address] [place], [place] [address] Lew Tim M.D. [id number] Sodium [Moles/Vol] 135 mmol/L Normal 135-145 [facility] Comment on above: Order Comment: Injur y/Trauma or Illness?:Illness/Other How long have you had these symptoms (acute/chronic)?:Unknown Reason for exam?:Heart failure, known or suspected, initial workup Type of Exam?:Ongoing Additional signs and symptoms?:n/a Performed By: #### 4 6124 ####[facility] [address] [place] [address] 33402 Lew Tim M.D. [id number] Urea nitrogen [Mass/Vol] 7 mg/dL Low 8-25 [facility] Comment on above: Order Comment: Injur y/Trauma or Illness?:Illness/Other How long have you had these symptoms (acute/chronic)?:Unknown Reason for exam?:Heart failure, known or suspected, initial workup Type of Exam?:Ongoing Additional signs and symptoms?:n/a Performed By: #### 4 6124 ####[facility] [address] [place], [place] [address] Lew Tim M.D. [id number] Urea nitrogen/Creatinine [Mass ratio] 12.3 mg/mg Normal 10.0-20.0 [facility] Comment on above: Order Comment: Injur y/Trauma or Illness?:Illness/Other How long have you had these symptoms (acute/chronic)?:Unknown Reason for exam?:Heart failure, known or suspected, initial workup Type of Exam?:Ongoing Additional signs and symptoms?:n/a Performed By: #### 4 6124 ####[facility] [address] [place] [address] 69195 Lew Tim M.D. [id number] Basic metabolic 2000 panelon 03-30-2025 Anion gap [Moles/Vol] 13 mmol/L 10 - 2 0 mmol/L [facility] Calcium [Mass/Vol] 8.9 mg/dL 8.4 - 10. 2 mg/dL [facility] Chloride [Moles/Vol] 101 mmol/L 98 - 10 8 mmol/L [facility] Creatinine [Mass/Vol] 0.57 mg/dL 0.40 - 1.10 mg/dL [facility] GFR/1.73 sq M.predicted CKD-EPI (S/P/Bld) [Vol rate/Area] 104 - PINF [facility] Glucose [Mass/Vol] 102 mg/dL High 65 - 99 mg/dL [facility] HCO3 [Moles/Vol] 25 mmol/L 21 - 32 mmol/L [facility] Potassium [Moles/Vol] 3.9 mmol/L 3.5 - 5.1 mmol/L [facility] Sodium [Moles/Vol] 135 mmol/L 135 - 145 mmol/L [facility] Urea nitrogen [Mass/Vol] 7 mg/dL Low 8 - 25 mg/dL [facility] Urea nitrogen/Creatinine [Mass ratio] 12.3 mg/mg 10.0 - 20.0 [facility] CBCon 03-30-2025 AUTO NRBC 0.0 % Normal [facility] Comment on above: Performed By: #### 4 6287 #### [facility] [address] [place], [place] [address] Lew Tim M.D. [id number] AUTO NRBC ABS COUNT 0.00 K/mcL Normal 0.00-0.00 [facility] Comment on above: Performed By: #### 4 5469 #### [facility] [address] [place], [place] [address] Lew Tim M.D. [id number] Erythrocyte distribution width (RBC) [Ratio] 15.7 % High 11.6-14.8 [facility] Comment on above: Performed By: #### 4 9217 #### [facility] [address] [place], [place] [address] Lew Tim M.D. [id number] Hematocrit (Bld) [Volume fraction] 35.3 % Low 36.0-46.0 [facility] Comment on above: Performed By: #### 4 4239 #### [facility] [address] [place], [place] [address] Lew Tim M.D. [id number] Hemoglobin (Bld) [Mass/Vol] 11.6 g/dL Low 12.0-16.0 [facility] Comment on above: Performed By: #### 4 6299 #### [facility] [address] [place], [place] [address] Lew Tim M.D. [id number] MCH (RBC) [Entitic mass] 31.4 pg Normal 26.0-34.0 [facility] Comment on above: Performed By: #### 4 6299 #### [facility] [address] [place], [place] [address] Lew Tim M.D. [id number] MCV (RBC) [Entitic vol] 95.4 fL Normal 80.0-100.0 [facility] Comment on above: Performed By: #### 4 [id number] #### [facility] [address] [place], [place] [address] Lew Tim M.D. [id number] MEAN CORPUSCULAR HEMOGLOBIN CONC 32.9 g/dL Normal 31.0-37.0 [facility] Comment on above: Performed By: #### 4 6299 #### [facility] [address] [place], [place] [address]Clifford Tim M.D. [id number] Platelet mean volume (Bld) [Entitic vol] 9.5 fL Normal 9.4-12.4 [facility] Comment on above: Performed By: #### 4 6288 #### [facility] [address] [place], [place] [address] Lew Tim M.D. [id number] Platelets (Bld) [#/Vol] 546 10*3/uL High 150-400 [facility] Comment on above: Performed By: #### 4 6259 #### [facility] [address] [place], [place] [address] Lew Tim M.D. [id number] RBC (Bld) [#/Vol] 3.70 10*6/uL Low 4.00-5.20 [facility] Comment on above: Performed By: #### 4 6299 #### [facility] [address] [place] [address] 48476 Lew Tim M.D. [id number] WBC (Bld) [#/Vol] 7.79 10*3/uL Normal 4.50-11.00 [facility] Comment on above: Performed By: #### 4 6299 #### [facility] [address] [place] [address] 04188 Lew Tim M.D. [id number] CBC panel Auto (Bld)on 03-30 Erythrocyte distribution width (RBC) [Entitic vol] 15.7 % High 11.6 - 14.8 % [facility] Hematocrit (Bld) [Volume fraction] 35.3 % Low 36.0 - 46.0 % [facility] Hemoglobin (Bld) [Mass/Vol] 11.6 g/dL Low 12.0 - 16.0 g/dL [facility] Interpretation and review of laboratory results Abnormal [facility] MCH (RBC) [Entitic mass] 31.4 pg 26.0 - 34.0 pg [facility] MCHC (RBC) [Mass/Vol] 32.9 g/dL 31.0 - 37.0 g/dL [facility] MCV (RBC) [Entitic vol] 95.4 fL 80.0 - 100.0 fL [facility] Nucleated RBC (Bld) [#/Vol] 0 10*3/uL [facility] Nucleated RBC/100 WBC (Bld) [Ratio] 0 % [facility] Platelet mean volume (Bld) [Entitic vol] 9.5 fL 9.4 - 12.4 fL [facility] Platelets (Bld) [#/Vol] 546 10*3/uL High [facility] RBC (Bld) [#/Vol] 3.7 10*6/uL Low [facility] WBC (Bld) [#/Vol] 7.79 10*3/uL [facility] CT ABDOMEN PELVIS WITH CONTR Kaylee 03-30-2025 CT ABDOMEN PELVIS WITH CONTRAST EXAMINATION: ENHANCED CT SCAN OF THE ABDOMEN AND PELVIS 03/30/2025. HISTORY: Dx: K57.20 (Diverticulitis of colon with perforation) Injury/Trauma or Illness?:Illness/Othe r How long have you had these symptoms (acute/chronic)?:Acut e s/p loop colostomy for diverticulitis, eval for leak, eval pelvic fluid collections COMPARISON FILMS: Enhanced CT scan of the abdomen and pelvis 03/26/2025. TECHNIQUE: 3 mm axial images from lung bases through ischial tuberosities following administration of intravenous contrast were obtained. Oral contrast was utilized as well. Sagittal, coronal reconstructions were performed. Dose reduction techniques were achieved by using automated exposure control and/or adjustment of mA and/or kV according to patient size and/or use of iterative reconstruction technique. FINDINGS: Lung bases demonstrate there are no focal abnormalities except for some linear-appearing densities at the lung bases, concerning for discoid atelectatic changes or scarring. The heart size seems normal. CT ABDOMEN: The liver demonstrates a low-density lesion in the medial segment of the left hepatic lobe, measuring approximately 2.5 cm in AP dimension with average Hounsfield units of approximately 4. The remaining liver seems normal. There is an additional lesion in the posterior segment of right hepatic lobe, measuring approximately 8 mm. There is some increased density in the gallbladder, may represent some sludge, cholelithiasis or vicarious excretion of contrast. Spleen, adrenal glands, pancreas, kidneys appear normal. The abdominal aorta has normal caliber. There is no retroperitoneal or mesenteric adenopathy. There is a small umbilical hernia with omental fat without bowel loops with the hernia neck measuring 1.2 cm. The bowel loops are of normal caliber. The patient has undergone colostomy with somewhat less thickened appearance to the sigmoid colon, however, sigmoid colon is still thickened with some induration of surrounding fat. There is a drainage catheter in the upper pelvis, with no significant air-fluid level in the vicinity of the tip of this catheter except for a small residual slightly inferiorly near the right iliac vessels, measuring approximately 1.3 x 2.0 cm. A portion of this fluid collection in the upper pelvis previously measured 3.1 x 4.7 cm and the inferior component measured 4.0 x 10.6 cm with near complete resolution of this component of fluid except for a small residual. Besides there is some haziness in the presacral space. CT PELVIS: The bladder, uterus, ovaries appear normal. There is no pelvic adenopathy. The visualized osseous structures demonstrate degenerative disc disease with vacuum phenomena at L5-S1. IMPRESSION: 1. Since the previous examination, there is placement of a drain, which results in near complete resolution of previously seen fluid collections, with some residual along the right as well as the left aspect of the pelvis, the pocket of fluid along the left aspect of the pelvis is better seen on the coronal reformatted images measuring 1.2 x 1.4 cm. There is some haziness in the presacral space, unchanged. No new pockets of fluid collections are seen. 2. There is diffusely thickened sigmoid colon, however, slightly less compared to previous examination with some induration of surrounding fat with some linear-appearing densities extending to the left aspect of the uterus, concerning for developing fistula. However, no discrete air bubbles are seen within the tract itself. 3. There is some fluid in the subcutaneous soft tissues of mid pelvis anteriorly without extension into the peritoneal cavity with a droplet of air but no enhancing rims, this seems unchanged except for a droplet of air. Developing infected fluid collection would be difficult to exclude. 4. Fatty liver with a few simple-appearing cysts in the liver, unchanged. 5. Increased density in the gallbladder may represent some vicarious creation of contrast, sludge or cholelithiasis. KKV/lab Workstation ID: [id number] Dictated by: MIGUE FOY on SunMar 30, 2025 11:02:50 AM EDT Transcribed by: DOROTHY IBARRA on SunMar 30, 2025 11:18:54 AM EDT Finalized by: MIGUE FOY on SunMar 30, 2025 12:20:39 PM EDT Normal [facility] Comment on above: Order Comment: Injur y/Trauma or Illness?:Illness/Other How long have you had these symptoms (acute/chronic)?:Unknown Reason for exam?:cp Type of Exam?:Unknown Additional signs and symptoms?:n CT Abdomen and Pelvis W cont rast Yary 03-30-2025 GE RIS GE [facility] Radiology Study observation (narrative) [facility] MAGNESIUM LEVELon 03-30-2025 Magnesium [Mass/Vol] 2.8 mg/dL High 1.6-2.4 [facility] Comment on above: Performed By: #### 4 6109 ####[facility] [address] [place] [address] 31048 Lew Tim M.D. [id number] Magnesium Levelon 03-30-2025 Magnesium [Mass/Vol] 2.8 mg/dL High 1.6 - 2 .4 mg/dL [facility] No Panel Informationon 03-30 Interpretation and review of laboratory results Abnormal [facility] PHOSPHORUSon 03-30-2025 Phosphate [Mass/Vol] 3.4 mg/dL Normal 2.7-4.5 [facility] Comment on above: Performed By: #### 4 6299 #### [facility] [address] [place] [address] 51779 Lew Tim M.D. [id number] Phosphate [Mass/Vol]on 03-30 Interpretation and review of laboratory results Normal [facility] Phosphoruson 03-30-2025 Phosphate [Mass/Vol] 3.4 mg/dL 2.7 - 4 .5 mg/dL [facility] BASIC METABOLIC PANELon Anion gap [Moles/Vol] 17 mmol/L Normal 10-20 [facility] Comment on above: Order Comment: Injur y/Trauma or Illness?:Illness/Other How long have you had these symptoms (acute/chronic)?:Unknown Reason for exam?:NG/OG tube placement History of cancer?:. Surgeries, chemotherapy, or radiation?:. Type of Exam?:Initial Additional signs and symptoms?:. Performed By: #### 4 6124 ####[facility] [address] [place] [address] 00010 Lew Tim M.D. [id number] Calcium [Mass/Vol] 8.8 mg/dL Normal 8.4-10.2 [facility] Comment on above: Order Comment: Injur y/Trauma or Illness?:Illness/Other How long have you had these symptoms (acute/chronic)?:Unknown Reason for exam?:NG/OG tube placement History of cancer?:. Surgeries, chemotherapy, or radiation?:. Type of Exam?:Initial Additional signs and symptoms?:. Performed By: #### 4 6178 ####[facility] [address] [place] [address] 50070 Lew Tim M.D. [id number] Chloride [Moles/Vol] 99 mmol/L Normal 98-108 [facility] Comment on above: Order Comment: Injur y/Trauma or Illness?:Illness/Other How long have you had these symptoms (acute/chronic)?:Unknown Reason for exam?:NG/OG tube placement History of cancer?:. Surgeries, chemotherapy, or radiation?:. Type of Exam?:Initial Additional signs and symptoms?:. Performed By: #### 4 6161 ####[facility] [address] [place], [place] [address] Lew Tim M.D. [id number] Creatinine [Mass/Vol] 0.61 mg/dL Normal 0.40-1.10 [facility] Comment on above: Order Comment: Injur y/Trauma or Illness?:Illness/Other How long have you had these symptoms (acute/chronic)?:Unknown Reason for exam?:NG/OG tube placement History of cancer?:. Surgeries, chemotherapy, or radiation?:. Type of Exam?:Initial Additional signs and symptoms?:. Performed By: #### 4 6182 ####[facility] [address] [place], [place] [address] Lew Tim M.D. [id number] EGFR 102 mL/min/1.73 m2 Normal >=60 [facility] Comment on above: Order Comment: Injur y/Trauma or Illness?:Illness/Other How long have you had these symptoms (acute/chronic)?:Unknown Reason for exam?:NG/OG tube placement History of cancer?:. Surgeries, chemotherapy, or radiation?:. Type of Exam?:Initial Additional signs and symptoms?:. Result Comment: Marce mated GFR was calculated using the 2020 CKD-EPI creatinine equation. Performed By: #### 4 6197 ####[facility] [address] [place], [place] [address] Lew Tim M.D. [id number] Glucose [Mass/Vol] 100 mg/dL High 65-99 [facility] Comment on above: Order Comment: Injur y/Trauma or Illness?:Illness/Other How long have you had these symptoms (acute/chronic)?:Unknown Reason for exam?:NG/OG tube placement History of cancer?:. Surgeries, chemotherapy, or radiation?:. Type of Exam?:Initial Additional signs and symptoms?:. Performed By: #### 4 6132 ####[facility] [address] [place], [place] [address] Lew Tim M.D. [id number] HCO3 (Bld) [Moles/Vol] 26 mmol/L Normal 21-32 [facility] Comment on above: Order Comment: Injur y/Trauma or Illness?:Illness/Other How long have you had these symptoms (acute/chronic)?:Unknown Reason for exam?:NG/OG tube placement History of cancer?:. Surgeries, chemotherapy, or radiation?:. Type of Exam?:Initial Additional signs and symptoms?:. Performed By: #### 4 6170 ####[facility] [address] [place] [address] Lew Tim M.D. [id number] Potassium [Moles/Vol] 4.5 mmol/L Normal 3.5-5.1 [facility] [facility] Comment on above: Order Comment: Injur y/Trauma or Illness?:Illness/Other How long have you had these symptoms (acute/chronic)?:Unknown Reason for exam?:NG/OG tube placement History of cancer?:. Surgeries, chemotherapy, or radiation?:. Type of Exam?:Initial Additional signs and symptoms?:. Result Comment: Slig htly Hemolyzed Performed By: #### 4 [id number] ####[facility] [address] [place] [address] Lew Tim M.D. [id number] Sodium [Moles/Vol] 137 mmol/L Normal 135-145 [facility] Comment on above: Order Comment: Injur y/Trauma or Illness?:Illness/Other How long have you had these symptoms (acute/chronic)?:Unknown Reason for exam?:NG/OG tube placement History of cancer?:. Surgeries, chemotherapy, or radiation?:. Type of Exam?:Initial Additional signs and symptoms?:. Performed By: #### 4 6135 ####[facility] [address] [place], [place] [address] Lew Tim M.D. [id number] Urea nitrogen [Mass/Vol] 8 mg/dL Normal 8-25 [facility] Comment on above: Order Comment: Injur y/Trauma or Illness?:Illness/Other How long have you had these symptoms (acute/chronic)?:Unknown Reason for exam?:NG/OG tube placement History of cancer?:. Surgeries, chemotherapy, or radiation?:. Type of Exam?:Initial Additional signs and symptoms?:. Performed By: #### 4 6184 ####[facility] [address] [place], [place] [address] Lew Tim M.D. [id number] Urea nitrogen/Creatinine [Mass ratio] 13.1 mg/mg Normal 10.0-20.0 [facility] Comment on above: Order Comment: Injur y/Trauma or Illness?:Illness/Other How long have you had these symptoms (acute/chronic)?:Unknown Reason for exam?:NG/OG tube placement History of cancer?:. Surgeries, chemotherapy, or radiation?:. Type of Exam?:Initial Additional signs and symptoms?:. Performed By: #### 4 6197 ####[facility] [address] [place], [place] [address] Lew Tim M.D. [id number] Basic metabolic 2000 panelon 03-29-2025 Anion gap [Moles/Vol] 17 mmol/L 10 - 2 0 mmol/L [facility] Calcium [Mass/Vol] 8.8 mg/dL 8.4 - 10. 2 mg/dL [facility] Chloride [Moles/Vol] 99 mmol/L 98 - 10 8 mmol/L [facility] Creatinine [Mass/Vol] 0.61 mg/dL 0.40 - 1.10 mg/dL [facility] GFR/1.73 sq M.predicted CKD-EPI (S/P/Bld) [Vol rate/Area] 102 - PINF [facility] Glucose [Mass/Vol] 100 mg/dL High 65 - 99 mg/dL [facility] HCO3 [Moles/Vol] 26 mmol/L 21 - 32 mmol/L [facility] Interpretation and review of laboratory results Abnormal [facility] Potassium [Moles/Vol] 4.5 mmol/L 3.5 - 5.1 mmol/L [facility] Sodium [Moles/Vol] 137 mmol/L 135 - 145 mmol/L [facility] Urea nitrogen [Mass/Vol] 8 mg/dL 8 - 25 mg/dL [facility] Urea nitrogen/Creatinine [Mass ratio] 13.1 mg/mg 10.0 - 20.0 [facility] CBCon 03-29-2025 AUTO NRBC 0.0 % Normal [facility] Comment on above: Performed By: #### 4 [id number] ####[facility] [address] [place] [address] Lew Tim M.D. [id number] AUTO NRBC ABS COUNT 0.00 K/mcL Normal 0.00-0.00 [facility] Comment on above: Performed By: #### 4 [id number] ####[facility] [address] [place], [place] [address] Lew Tim M.D. [id number] Erythrocyte distribution width (RBC) [Ratio] 15.7 % High 11.6-14.8 [facility] Comment on above: Performed By: #### 4 [id number] ####[facility] [address] [place], [place] [address] Lew Tim M.D. [id number] Hematocrit (Bld) [Volume fraction] 37.3 % Normal 36.0-46.0 [facility] Comment on above: Performed By: #### 4 [id number] ####[facility] [address] [place], [place] [address] Lew Tim M.D. [id number] Hemoglobin (Bld) [Mass/Vol] 11.9 g/dL Low 12.0-16.0 [facility] Comment on above: Performed By: #### 4 [id number] ####[facility] [address] [place], [place] [address] Lew Tim M.D. [id number] MCH (RBC) [Entitic mass] 31.3 pg Normal 26.0-34.0 [facility] Comment on above: Performed By: #### 4 [id number] ####[facility] [address] [place] [address] Lew Tim M.D. [id number] MCV (RBC) [Entitic vol] 98.2 fL Normal 80.0-100.0 [facility] Comment on above: Performed By: #### 4 [id number] ####[facility] [address] [place] [address] Lew Tim M.D. [id number] MEAN CORPUSCULAR HEMOGLOBIN CONC 31.9 g/dL Normal 31.0-37.0 [facility] Comment on above: Performed By: #### 4 [id number] ####[facility] [address] [place], [place] [address] Lew Tim M.D. [id number] Platelet mean volume (Bld) [Entitic vol] 9.6 fL Normal 9.4-12.4 [facility] Comment on above: Performed By: #### 4 [id number] ####[facility] [address] [place], [place] [address] Lew Tim M.D. [id number] Platelets (Bld) [#/Vol] 528 10*3/uL High 150-400 [facility] Comment on above: Performed By: #### 4 [id number] ####[facility] [address] [place], [place] [address] Lew Tim M.D. [id number] RBC (Bld) [#/Vol] 3.80 10*6/uL Low 4.00-5.20 [facility] Comment on above: Performed By: #### 4 [id number] ####[facility] [address] [place] [address] 586[address] Lew Tim M.D. [id number] WBC (Bld) [#/Vol] 8.91 10*3/uL Normal 4.50-11.00 [facility] Comment on above: Performed By: #### 4 [id number] ####[facility] [address] [place] [address]1615 Lew Tim M.D. [id number] CBC panel Auto (Bld)on 03-29 Erythrocyte distribution width (RBC) [Entitic vol] 15.7 % High 11.6 - 14.8 % [facility] Hematocrit (Bld) [Volume fraction] 37.3 % 36.0 - 46.0 % [facility] Hemoglobin (Bld) [Mass/Vol] 11.9 g/dL Low 12.0 - 16.0 g/dL [facility] Interpretation and review of laboratory results Abnormal [facility] MCH (RBC) [Entitic mass] 31.3 pg 26.0 - 34.0 pg [facility] MCHC (RBC) [Mass/Vol] 31.9 g/dL 31.0 - 37.0 g/dL [facility] MCV (RBC) [Entitic vol] 98.2 fL 80.0 - 100.0 fL [facility] Nucleated RBC (Bld) [#/Vol] 0 10*3/uL [facility] Nucleated RBC/100 WBC (Bld) [Ratio] 0 % [facility] Platelet mean volume (Bld) [Entitic vol] 9.6 fL 9.4 - 12.4 fL [facility] Platelets (Bld) [#/Vol] 528 10*3/uL High [facility] RBC (Bld) [#/Vol] 3.8 10*6/uL Low [facility] alth WBC (Bld) [#/Vol] 8.91 10*3/uL [facility] MAGNESIUM LEVELon 03-29-2025 Magnesium [Mass/Vol] 2.2 mg/dL Normal 1.6-2.4 [facility] Comment on above: Performed By: #### 4 6109 ####[facility] [address] [place] [address] 33[address] Lew Tim M.D. [id number] Magnesium Levelon 03-29-2025 Magnesium [Mass/Vol] 2.2 mg/dL 1.6 - 2 .4 mg/dL [facility] No Panel Informationon 03-29 Interpretation and review of laboratory results Normal [facility] PHOSPHORUSon 03-29-2025 Phosphate [Mass/Vol] 3.8 mg/dL Normal 2.7-4.5 [facility] Comment on above: Performed By: #### 4 4197 #### [facility] [address] [place] [address] 97497 Lew Tim M.D. [id number] Phosphoruson 03-29-2025 Phosphate [Mass/Vol] 3.8 mg/dL 2.7 - 4 .5 mg/dL [facility] BASIC METABOLIC PANELon Anion gap [Moles/Vol] 18 mmol/L Normal 10-20 [facility] Comment on above: Order Comment: Lab r eordered aerobic/anaerobic culture per request on requisition. Performed By: #### 4 [id number] #### [facility] [address] [place] [address] 28764 Lew Tim M.D. [id number] Calcium [Mass/Vol] 8.8 mg/dL Normal 8.4-10.2 [facility] Comment on above: Order Comment: Lab r eordered aerobic/anaerobic culture per request on requisition. Performed By: #### 4 [id number] #### [facility] [address] [place] [address] 42042 Lew Tim M.D. [id number] Chloride [Moles/Vol] 97 mmol/L Low 98-108 [facility] Comment on above: Order Comment: Lab r eordered aerobic/anaerobic culture per request on requisition. Performed By: #### 4 4197 #### [facility] [address] [place] [address]45 Lew Tim M.D. [id number] Creatinine [Mass/Vol] 0.52 mg/dL Normal 0.40-1.10 [facility] Comment on above: Order Comment: Lab r eordered aerobic/anaerobic culture per request on requisition. Performed By: #### 4 4197 #### [facility] [address] [place] [address] Lew Tim M.D. [id number] EGFR 107 mL/min/1.73 m2 Normal >=60 [facility] Comment on above: Order Comment: Lab r eordered aerobic/anaerobic culture per request on requisition. Result Comment: Marce mated GFR was calculated using the 2020 CKD-EPI creatinine equation. Performed By: #### 4 [id number] #### [facility] [address] [place] [address] Lew Tim M.D. [id number] Glucose [Mass/Vol] 85 mg/dL Normal 65-99 [facility] Comment on above: Order Comment: Lab r eordered aerobic/anaerobic culture per request on requisition. Performed By: #### 4 [id number] #### [facility] [address] [place], [place] [address] Lew Tim M.D. [id number] HCO3 (Bld) [Moles/Vol] 23 mmol/L Normal 21-32 [facility] Comment on above: Order Comment: Lab r eordered aerobic/anaerobic culture per request on requisition. Performed By: #### 4 [id number] #### [facility] [address] [place] [address]4714 Lew Tim M.D. [id number] Potassium [Moles/Vol] 4.4 mmol/L Normal 3.5-5.1 [facility] Comment on above: Order Comment: Lab r eordered aerobic/anaerobic culture per request on requisition. Result Comment: Slig htly Hemolyzed Performed By: #### 4 [id number] #### [facility] [address] [place] [address] Lew Tim M.D. [id number] Sodium [Moles/Vol] 134 mmol/L Low 135-145 [facility] Comment on above: Order Comment: Lab r eordered aerobic/anaerobic culture per request on requisition. Performed By: #### 4 [id number] #### [facility] [address] [place] [address] 58914 Lew Tim M.D. [id number] Urea nitrogen [Mass/Vol] 12 mg/dL Normal 8-25 [facility] Comment on above: Order Comment: Lab r eordered aerobic/anaerobic culture per request on requisition. Performed By: #### 4 [id number] #### [facility] [address] [place] [address] 16214 Lew Tim M.D. [id number] Urea nitrogen/Creatinine [Mass ratio] 23.1 mg/mg High 10.0-20.0 [facility] Comment on above: Order Comment: Lab r eordered aerobic/anaerobic culture per request on requisition. Performed By: #### 4 [id number] #### [facility] [address] [place] [address] 21482 Lew Tim M.D. [id number] Basic metabolic 2000 panelon 03-28-2025 Anion gap [Moles/Vol] 18 mmol/L 10 - 2 0 mmol/L [facility] Calcium [Mass/Vol] 8.8 mg/dL 8.4 - 10. 2 mg/dL [facility] Chloride [Moles/Vol] 97 mmol/L Low 98 - 10 8 mmol/L [facility] Creatinine [Mass/Vol] 0.52 mg/dL 0.40 - 1.10 mg/dL [facility] GFR/1.73 sq M.predicted CKD-EPI (S/P/Bld) [Vol rate/Area] 107 - PINF [facility] Glucose [Mass/Vol] 85 mg/dL 65 - 99 mg/dL [facility] HCO3 [Moles/Vol] 23 mmol/L 21 - 32 mmol/L [facility] Interpretation and review of laboratory results Abnormal [facility] Potassium [Moles/Vol] 4.4 mmol/L 3.5 - 5.1 mmol/L [facility] Sodium [Moles/Vol] 134 mmol/L Low 135 - 145 mmol/L [facility] Urea nitrogen [Mass/Vol] 12 mg/dL 8 - 25 mg/dL [facility] Urea nitrogen/Creatinine [Mass ratio] 23.1 mg/mg High 10.0 - 20.0 [facility] CBCon 03-28-2025 AUTO NRBC 0.0 % Normal [facility] Comment on above: Performed By: #### 4 [id number] ####[facility] [address] [place] [address] Lew Tim M.D. [id number] AUTO NRBC ABS COUNT 0.00 K/mcL Normal 0.00-0.00 [facility] Comment on above: Performed By: #### 4 [id number] ####[facility] [address] [place], [place] [address] Lew Tim M.D. [id number] Erythrocyte distribution width (RBC) [Ratio] 15.8 % High 11.6-14.8 [facility] Comment on above: Performed By: #### 4 [id number] ####[facility] [address] [place], [place] [address] Lew Tim M.D. [id number] Hematocrit (Bld) [Volume fraction] 34.7 % Low 36.0-46.0 [facility] Comment on above: Performed By: #### 4 [id number] ####[facility] [address] [place], [place] [address] Lew Tim M.D. [id number] Hemoglobin (Bld) [Mass/Vol] 11.2 g/dL Low 12.0-16.0 [facility] Comment on above: Performed By: #### 4 [id number] ####[facility] [address] [place], [place] [address] Lew Tim M.D. [id number] MCH (RBC) [Entitic mass] 31.4 pg Normal 26.0-34.0 [facility] Comment on above: Performed By: #### 4 [id number] ####[facility] [address] [place], [place] [address] Lew Tim M.D. [id number] MCV (RBC) [Entitic vol] 97.2 fL Normal 80.0-100.0 [facility] Comment on above: Performed By: #### 4 [id number] ####[facility] [address] [place] [address] Lew Tim M.D. [id number] MEAN CORPUSCULAR HEMOGLOBIN CONC 32.3 g/dL Normal 31.0-37.0 [facility] Comment on above: Performed By: #### 4 [id number] ####[facility] [address] [place] [address] Lew Tim M.D. [id number] Platelet mean volume (Bld) [Entitic vol] 9.8 fL Normal 9.4-12.4 [facility] Comment on above: Performed By: #### 4 [id number] ####[facility] [address] [place], [place] [address] Lew Tim M.D. [id number] Platelets (Bld) [#/Vol] 471 10*3/uL High 150-400 [facility] Comment on above: Performed By: #### 4 [id number] ####[facility] [address] [place], [place] [address] Lew Tim M.D. [id number] RBC (Bld) [#/Vol] 3.57 10*6/uL Low 4.00-5.20 [facility] Comment on above: Performed By: #### 4 [id number] ####[facility] [address] [place], [place] [address] Lew Tim M.D. [id number] WBC (Bld) [#/Vol] 9.91 10*3/uL Normal 4.50-11.00 [facility] Comment on above: Performed By: #### 4 [id number] ####[facility] [address] [place] [address] Lew Tim M.D. [id number] CBC panel Auto (Bld)on 03-28 Erythrocyte distribution width (RBC) [Entitic vol] 15.8 % High 11.6 - 14.8 % [facility] Hematocrit (Bld) [Volume fraction] 34.7 % Low 36.0 - 46.0 % [facility] Hemoglobin (Bld) [Mass/Vol] 11.2 g/dL Low 12.0 - 16.0 g/dL [facility] Interpretation and review of laboratory results Abnormal [facility] MCH (RBC) [Entitic mass] 31.4 pg 26.0 - 34.0 pg [facility] MCHC (RBC) [Mass/Vol] 32.3 g/dL 31.0 - 37.0 g/dL [facility] MCV (RBC) [Entitic vol] 97.2 fL 80.0 - 100.0 fL [facility] Nucleated RBC (Bld) [#/Vol] 0 10*3/uL [facility] Nucleated RBC/100 WBC (Bld) [Ratio] 0 % [facility] Platelet mean volume (Bld) [Entitic vol] 9.8 fL 9.4 - 12.4 fL [facility] Platelets (Bld) [#/Vol] 471 10*3/uL High [facility] RBC (Bld) [#/Vol] 3.57 10*6/uL Low [facility] WBC (Bld) [#/Vol] 9.91 10*3/uL [facility] MAGNESIUM LEVELon 03-28-2025 Magnesium [Mass/Vol] 1.8 mg/dL Normal 1.6-2.4 [facility] Comment on above: Performed By: #### 4 6299 #### [facility] [address] [place] [address] 17138 Lew Tim M.D. [id number] Magnesium Levelon 06-07-2025 Magnesium [Mass/Vol] 1.8 mg/dL 1.6 - 2 .4 mg/dL [facility] Magnesium [Mass/Vol]on 03-28 Interpretation and review of laboratory results Normal [facility] No Panel Informationon 03-28 [facility] XR ABDOMEN /KUB/FLAT PLATE/1 VIEWon 03-28-2025 XR ABDOMEN /KUB/FLAT PLATE/1 VIEW EXAMINATION: XR ABDOMEN /KUB/FLAT PLATE/1 VIEW 03/28/2025 6:03 pm HISTORY: ORDERING SYSTEM PROVIDED HISTORY: No ostomy output with advanced diet, evaluate bowel pattern, TECHNOLOGIST PROVIDED HISTORY: Illness/Other Reason for exam: No ostomy output with advanced diet, evaluate bowel pattern Cancer History: . Surgery, RadiationHistory: . Encounter Type: Initial Additional signs and symptoms: . ORDERING SYSTEM PROVIDED DIAGNOSIS CODES: K57.20 Diverticulitis of colon with perforation K65.1 Intra-abdominal abscess (HCC) D72.829 Leukocytosis, unspecified type Z48.815 Encounter for surgical aftercare following surgery of digestive system COMPARISON: [facility], 03/19/2025 IMPRESSION: 1. NG tube is been removed. 2. There are 2 pigtail drains identified in the pelvis. 3. Small bowel distension in the epigastric region, measuring up to 3.8 cm. This could reflect obstruction or ileus and appears stable from prior exam. Workstation ID: [id number] Dictated by: JUANI STARK on [facility] Mar 28, 2025 7:42:32 PM EDT Transcribed by: JUANI STARK on [facility] Mar 28, 2025 7:42:32 PM EDT Finalized by: JUANI STARK on [facility] Mar 28, 2025 7:42:32 PM EDT Normal [facility] Comment on above: Order Comment: Injur y/Trauma or Illness?:Illness/Other How long have you had these symptoms (acute/chronic)?:Unknown Reason for exam?:No ostomy output with advanced diet, evaluate bowel pattern History of cancer?:. Surgeries, chemotherapy, or radiation?:. Type of Exam?:Initial Additional signs and symptoms?:. XR Chest View and Abdomen [place] [facility] [place] 03-28-2025 GE RIS GE RIS [facility] Radiology Study observation (narrative) [facility] XR Chest View and Abdomen [place] and UprightOrdered By: Juani Stark on 03-28-2025 [facility] Work Phone: BASIC METABOLIC PANELon 06-0 Anion gap [Moles/Vol] 13 mmol/L Normal 10-20 [facility] Comment on above: Order Comment: Injur y/Trauma or Illness?:Illness/Other How long have you had these symptoms (acute/chronic)?:Unknown Reason for exam?:NG/OG tube placement History of cancer?:. Surgeries, chemotherapy, or radiation?:. Type of Exam?:Initial Additional signs and symptoms?:. Performed By: #### 4 6100 ####[facility] [address] [place] [address] Lew Tim M.D. [id number] Calcium [Mass/Vol] 8.3 mg/dL Low 8.4-10.2 [facility] Comment on above: Order Comment: Injur y/Trauma or Illness?:Illness/Other How long have you had these symptoms (acute/chronic)?:Unknown Reason for exam?:NG/OG tube placement History of cancer?:. Surgeries, chemotherapy, or radiation?:. Type of Exam?:Initial Additional signs and symptoms?:. Performed By: #### 4 6119 ####[facility] [address] [place] [address] Lew Tim M.D. [id number] Chloride [Moles/Vol] 99 mmol/L Normal 98-108 [facility] Comment on above: Order Comment: Injur y/Trauma or Illness?:Illness/Other How long have you had these symptoms (acute/chronic)?:Unknown Reason for exam?:NG/OG tube placement History of cancer?:. Surgeries, chemotherapy, or radiation?:. Type of Exam?:Initial Additional signs and symptoms?:. Performed By: #### 4 6189 ####[facility] [address] [place], [place] [address] Lew Tim M.D. [id number] Creatinine [Mass/Vol] 0.48 mg/dL Normal 0.40-1.10 [facility] Comment on above: Order Comment: Injur y/Trauma or Illness?:Illness/Other How long have you had these symptoms (acute/chronic)?:Unknown Reason for exam?:NG/OG tube placement History of cancer?:. Surgeries, chemotherapy, or radiation?:. Type of Exam?:Initial Additional signs and symptoms?:. Performed By: #### 4 6121 ####[facility] [address] [place] [address]285 Lew Tim M.D. [id number] EGFR 109 mL/min/1.73 m2 Normal >=60 [facility] Comment on above: Order Comment: Injur y/Trauma or Illness?:Illness/Other How long have you had these symptoms (acute/chronic)?:Unknown Reason for exam?:NG/OG tube placement History of cancer?:. Surgeries, chemotherapy, or radiation?:. Type of Exam?:Initial Additional signs and symptoms?:. Result Comment: Marce mated GFR was calculated using the 2020 CKD-EPI creatinine equation. Performed By: #### 4 6131 ####[facility] [address] [place], [place] [address] Lew Tim M.D. [id number] Glucose [Mass/Vol] 89 mg/dL Normal 65-99 [facility] Comment on above: Order Comment: Injur y/Trauma or Illness?:Illness/Other How long have you had these symptoms (acute/chronic)?:Unknown Reason for exam?:NG/OG tube placement History of cancer?:. Surgeries, chemotherapy, or radiation?:. Type of Exam?:Initial Additional signs and symptoms?:. Performed By: #### 4 6157 ####[facility] [address] [place] [address] 38619 Lew Tim M.D. [id number] HCO3 (Bld) [Moles/Vol] 24 mmol/L Normal 21-32 [facility] Comment on above: Order Comment: Injur y/Trauma or Illness?:Illness/Other How long have you had these symptoms (acute/chronic)?:Unknown Reason for exam?:NG/OG tube placement History of cancer?:. Surgeries, chemotherapy, or radiation?:. Type of Exam?:Initial Additional signs and symptoms?:. Performed By: #### 4 6124 ####[facility] [address] [place] [address] 14941 Lew Tim M.D. [id number] Potassium [Moles/Vol] 4.8 mmol/L Normal 3.5-5.1 [facility] Comment on above: Order Comment: Injur y/Trauma or Illness?:Illness/Other How long have you had these symptoms (acute/chronic)?:Unknown Reason for exam?:NG/OG tube placement History of cancer?:. Surgeries, chemotherapy, or radiation?:. Type of Exam?:Initial Additional signs and symptoms?:. Result Comment: Slig htly Hemolyzed Performed By: #### 4 6124 ####[facility] [address] [place] [address] Lew Tim M.D. [id number] Sodium [Moles/Vol] 131 mmol/L Low 135-145 [facility] Comment on above: Order Comment: Injur y/Trauma or Illness?:Illness/Other How long have you had these symptoms (acute/chronic)?:Unknown Reason for exam?:NG/OG tube placement History of cancer?:. Surgeries, chemotherapy, or radiation?:. Type of Exam?:Initial Additional signs and symptoms?:. Performed By: #### 4 6124 ####[facility] [address] [place], [place] [address] Lew Tim M.D. [id number] Urea nitrogen [Mass/Vol] 10 mg/dL Normal 8-25 [facility] Comment on above: Order Comment: Injur y/Trauma or Illness?:Illness/Other How long have you had these symptoms (acute/chronic)?:Unknown Reason for exam?:NG/OG tube placement History of cancer?:. Surgeries, chemotherapy, or radiation?:. Type of Exam?:Initial Additional signs and symptoms?:. Performed By: #### 4 6129 ####[facility] [address] [place], [place] [address] Lew Tim M.D. [id number] Urea nitrogen/Creatinine [Mass ratio] 20.8 mg/mg High 10.0-20.0 [facility] Comment on above: Order Comment: Injur y/Trauma or Illness?:Illness/Other How long have you had these symptoms (acute/chronic)?:Unknown Reason for exam?:NG/OG tube placement History of cancer?:. Surgeries, chemotherapy, or radiation?:. Type of Exam?:Initial Additional signs and symptoms?:. Performed By: #### 4 6178 ####[facility] [address] [place] [address] Lew Tim M.D. [id number] Basic metabolic 2000 panelOr dereruddy By: Moisés Kauffman on 03-27-2025 Anion gap [Moles/Vol] 13 mmol/L 10 - 2 0 mmol/L [facility] Calcium [Mass/Vol] 8.3 mg/dL Low 8.4 - 10. 2 mg/dL [facility] Chloride [Moles/Vol] 99 mmol/L 98 - 10 8 mmol/L [facility] Creatinine [Mass/Vol] 0.48 mg/dL 0.40 - 1.10 mg/dL [facility] GFR/1.73 sq M.predicted CKD-EPI (S/P/Bld) [Vol rate/Area] 109 - PINF [facility] Glucose [Mass/Vol] 89 mg/dL 65 - 99 mg/dL [facility] HCO3 [Moles/Vol] 24 mmol/L 21 - 32 mmol/L [facility] Interpretation and review of laboratory results Abnormal [facility] Potassium [Moles/Vol] 4.8 mmol/L 3.5 - 5.1 mmol/L [facility] Sodium [Moles/Vol] 131 mmol/L Low 135 - 145 mmol/L [facility] Urea nitrogen [Mass/Vol] 10 mg/dL 8 - 25 mg/dL [facility] Urea nitrogen/Creatinine [Mass ratio] 20.8 mg/mg High 10.0 - 20.0 [facility] CBCon 03-27-2025 AUTO NRBC 0.0 % Normal [facility] Comment on above: Performed By: #### 4 [id number] #### [facility] [address] [place] [address] Lew Tim M.D. [id number] AUTO NRBC ABS COUNT 0.00 K/mcL Normal 0.00-0.00 [facility] Comment on above: Performed By: #### 4 6291 #### [facility] [address] [place] [address] Lew Tim M.D. [id number] Erythrocyte distribution width (RBC) [Ratio] 16.0 % High 11.6-14.8 [facility] Comment on above: Performed By: #### 4 6212 #### [facility] [address] [place] [address] Lew Tim M.D. [id number] Hematocrit (Bld) [Volume fraction] 37.1 % Normal 36.0-46.0 [facility] Comment on above: Performed By: #### 4 5617 #### [facility] [address] [place] [address] Lew Tim M.D. [id number] Hemoglobin (Bld) [Mass/Vol] 11.7 g/dL Low 12.0-16.0 [facility] Comment on above: Performed By: #### 4 5292 #### [facility] [address] [place] [address] Lew Tim M.D. [id number] MCH (RBC) [Entitic mass] 30.5 pg Normal 26.0-34.0 [facility] Comment on above: Performed By: #### 4 3454 #### [facility] [address] [place] [address] Lew Tim M.D. [id number] MCV (RBC) [Entitic vol] 96.6 fL Normal 80.0-100.0 [facility] Comment on above: Performed By: #### 4 8816 #### [facility] [address] [place] [address] Lew Tim M.D. [id number] MEAN CORPUSCULAR HEMOGLOBIN CONC 31.5 g/dL Normal 31.0-37.0 [facility] Comment on above: Performed By: #### 4 6299 #### [facility] [address] [place] [address] Lew Tim M.D. [id number] Platelet mean volume (Bld) [Entitic vol] 9.7 fL Normal 9.4-12.4 [facility] Comment on above: Performed By: #### 4 [id number] #### [facility] [address] [place], [place] [address] Lew Tim M.D. [id number] Platelets (Bld) [#/Vol] 488 10*3/uL High 150-400 [facility] Comment on above: Performed By: #### 4 [id number] #### [facility] [address] [place], [place] [address] Lew Tim M.D. [id number] RBC (Bld) [#/Vol] 3.84 10*6/uL Low 4.00-5.20 [facility] Comment on above: Performed By: #### 4 [id number] #### [facility] [address] [place] [address]Clifford Tim M.D. [id number] WBC (Bld) [#/Vol] 13.51 10*3/uL High 4.50-11.00 [facility] Comment on above: Performed By: #### 4 [id number] #### [facility] [address] [place] [address] Lew Tim M.D. [id number] CBC panel Auto (Bld)on 03-27 Erythrocyte distribution width (RBC) [Entitic vol] 16 % High 11.6 - 14.8 % [facility] Hematocrit (Bld) [Volume fraction] 37.1 % 36.0 - 46.0 % [facility] Hemoglobin (Bld) [Mass/Vol] 11.7 g/dL Low 12.0 - 16.0 g/dL [facility] Interpretation and review of laboratory results Abnormal [facility] MCH (RBC) [Entitic mass] 30.5 pg 26.0 - 34.0 pg [facility] MCHC (RBC) [Mass/Vol] 31.5 g/dL 31.0 - 37.0 g/dL [facility] MCV (RBC) [Entitic vol] 96.6 fL 80.0 - 100.0 fL [facility] Nucleated RBC (Bld) [#/Vol] 0 10*3/uL [facility] Nucleated RBC/100 WBC (Bld) [Ratio] 0 % [facility] Platelet mean volume (Bld) [Entitic vol] 9.7 fL 9.4 - 12.4 fL [facility] Platelets (Bld) [#/Vol] 488 10*3/uL High [facility] RBC (Bld) [#/Vol] 3.84 10*6/uL Low [facility] WBC (Bld) [#/Vol] 13.51 10*3/uL High [facility] Glucose (Bld) [Mass/Vol]on 0 03-27-2025 Glucose [Mass/Vol] 107 mg/dL High 65 - 99 mg/dL [facility] Interpretation and review of laboratory results Abnormal [facility] Glucose [Mass/Vol] 91 mg/dL 65 - 99 mg/dL [facility] Interpretation and review of laboratory results Normal [facility] Glucose [Mass/Vol] 133 mg/dL High 65 - 99 mg/dL [facility] Interpretation and review of laboratory results Abnormal [facility] Glucose [Mass/Vol] 85 mg/dL 65 - 99 mg/dL [facility] Interpretation and review of laboratory results Normal [facility] Glucose [Mass/Vol] 111 mg/dL High 65 - 99 mg/dL [facility] Interpretation and review of laboratory results Abnormal [facility] MAGNESIUM LEVELon 03-27-2025 Magnesium [Mass/Vol] 1.9 mg/dL Normal 1.6-2.4 [facility] Comment on above: Performed By: #### 4 6109 ####[facility] [address] [place] [address] Lew Tim M.D. [id number] Magnesium Levelon 03-27-2025 Magnesium [Mass/Vol] 1.9 mg/dL 1.6 - 2 .4 mg/dL [facility] Magnesium [Mass/Vol]on 03-27 Interpretation and review of laboratory results Normal [facility] No Panel InformationOrdered By: Moisés Kauffman on 03-27-2025 [facility] POC GLUCOSE - RALSon 025 Glucose [Mass/Vol] 107 mg/dL High 65-99 [facility] Comment on above: Performed By: #### 4 [id number] #### [facility] [address] [place] [address] Lew Tim M.D. [id number] Glucose [Mass/Vol] 91 mg/dL Normal 65-99 [facility] Comment on above: Performed By: #### 4 [id number] #### [facility] [address] [place], [place] [address] Lew Tim M.D. [id number] Glucose [Mass/Vol] 133 mg/dL High 65-99 [facility] Comment on above: Performed By: #### 4 6212 #### [facility] [address] [place], [place] [address]Clifford Tim M.D. [id number] Glucose [Mass/Vol] 85 mg/dL Normal 65-99 [facility] Comment on above: Performed By: #### 4 6254 #### [facility] [address] [place], [place] [address]Clifford Tim M.D. [id number] Glucose [Mass/Vol] 111 mg/dL High 65-99 [facility] Comment on above: Performed By: #### 4 3659 #### [facility] [address] [place], [place] [address] Lew Tim M.D. [id number] BASIC METABOLIC PANELon Anion gap [Moles/Vol] 14 mmol/L Normal 10-20 [facility] Comment on above: Order Comment: Injur y/Trauma or Illness?:Illness/Other How long have you had these symptoms (acute/chronic)?:Unknown Reason for exam?:No ostomy output with advanced diet, evaluate bowel pattern History of cancer?:. Surgeries, chemotherapy, or radiation?:. Type of Exam?:Initial Additional signs and symptoms?:. Performed By: #### 4 6142 ####[facility] [address] [place], [place] [address] Lew Tim M.D. [id number] Calcium [Mass/Vol] 8.4 mg/dL Normal 8.4-10.2 [facility] Comment on above: Order Comment: Injur y/Trauma or Illness?:Illness/Other How long have you had these symptoms (acute/chronic)?:Unknown Reason for exam?:No ostomy output with advanced diet, evaluate bowel pattern History of cancer?:. Surgeries, chemotherapy, or radiation?:. Type of Exam?:Initial Additional signs and symptoms?:. Performed By: #### 4 6158 ####[facility] [address] [place], [place] [address] Lew Tim M.D. [id number] Chloride [Moles/Vol] 101 mmol/L Normal 98-108 [facility] Comment on above: Order Comment: Injur y/Trauma or Illness?:Illness/Other How long have you had these symptoms (acute/chronic)?:Unknown Reason for exam?:No ostomy output with advanced diet, evaluate bowel pattern History of cancer?:. Surgeries, chemotherapy, or radiation?:. Type of Exam?:Initial Additional signs and symptoms?:. Performed By: #### 4 6176 ####[facility] [address] [place], [place] [address] Lew Tim M.D. [id number] Creatinine [Mass/Vol] 0.47 mg/dL Normal 0.40-1.10 [facility] Comment on above: Order Comment: Injur y/Trauma or Illness?:Illness/Other How long have you had these symptoms (acute/chronic)?:Unknown Reason for exam?:No ostomy output with advanced diet, evaluate bowel pattern History of cancer?:. Surgeries, chemotherapy, or radiation?:. Type of Exam?:Initial Additional signs and symptoms?:. Performed By: #### 4 6102 ####[facility] [address] [place], [place] [address] Lew Tim M.D. [id number] EGFR 109 mL/min/1.73 m2 Normal >=60 [facility] Comment on above: Order Comment: Injur y/Trauma or Illness?:Illness/Other How long have you had these symptoms (acute/chronic)?:Unknown Reason for exam?:No ostomy output with advanced diet, evaluate bowel pattern History of cancer?:. Surgeries, chemotherapy, or radiation?:. Type of Exam?:Initial Additional signs and symptoms?:. Result Comment: Marce mated GFR was calculated using the 2020 CKD-EPI creatinine equation. Performed By: #### 4 6170 ####[facility] [address] [place], [place] [address] Lew Tim M.D. [id number] Glucose [Mass/Vol] 108 mg/dL High 65-99 [facility] Comment on above: Order Comment: Injur y/Trauma or Illness?:Illness/Other How long have you had these symptoms (acute/chronic)?:Unknown Reason for exam?:No ostomy output with advanced diet, evaluate bowel pattern History of cancer?:. Surgeries, chemotherapy, or radiation?:. Type of Exam?:Initial Additional signs and symptoms?:. Performed By: #### 4 6160 ####[facility] [address] [place], [place] [address] Lew Tim M.D. [id number] HCO3 (Bld) [Moles/Vol] 23 mmol/L Normal 21-32 [facility] Comment on above: Order Comment: Injur y/Trauma or Illness?:Illness/Other How long have you had these symptoms (acute/chronic)?:Unknown Reason for exam?:No ostomy output with advanced diet, evaluate bowel pattern History of cancer?:. Surgeries, chemotherapy, or radiation?:. Type of Exam?:Initial Additional signs and symptoms?:. Performed By: #### 4 6124 ####[facility] [address] [place], [place] [address] Lew Tim M.D. [id number] Potassium [Moles/Vol] 4.5 mmol/L Normal 3.5-5.1 [facility] Comment on above: Order Comment: Injur y/Trauma or Illness?:Illness/Other How long have you had these symptoms (acute/chronic)?:Unknown Reason for exam?:No ostomy output with advanced diet, evaluate bowel pattern History of cancer?:. Surgeries, chemotherapy, or radiation?:. Type of Exam?:Initial Additional signs and symptoms?:. Performed By: #### 4 6139 ####[facility] [address] [place] [address] Lew Tim M.D. [id number] Sodium [Moles/Vol] 133 mmol/L Low 135-145 [facility] Comment on above: Order Comment: Injur y/Trauma or Illness?:Illness/Other How long have you had these symptoms (acute/chronic)?:Unknown Reason for exam?:No ostomy output with advanced diet, evaluate bowel pattern History of cancer?:. Surgeries, chemotherapy, or radiation?:. Type of Exam?:Initial Additional signs and symptoms?:. Performed By: #### 4 6135 ####[facility] [address] [place], [place] [address] Lew Tim M.D. [id number] Urea nitrogen [Mass/Vol] 9 mg/dL Normal 8-25 [facility] Comment on above: Order Comment: Injur y/Trauma or Illness?:Illness/Other How long have you had these symptoms (acute/chronic)?:Unknown Reason for exam?:No ostomy output with advanced diet, evaluate bowel pattern History of cancer?:. Surgeries, chemotherapy, or radiation?:. Type of Exam?:Initial Additional signs and symptoms?:. Performed By: #### 4 6138 ####[facility] [address] [place], [place] [address] Lew Tim M.D. [id number] Urea nitrogen/Creatinine [Mass ratio] 19.1 mg/mg Normal 10.0-20.0 [facility] Comment on above: Order Comment: Injur y/Trauma or Illness?:Illness/Other How long have you had these symptoms (acute/chronic)?:Unknown Reason for exam?:No ostomy output with advanced diet, evaluate bowel pattern History of cancer?:. Surgeries, chemotherapy, or radiation?:. Type of Exam?:Initial Additional signs and symptoms?:. Performed By: #### 4 6124 ####[facility] [address] [place] [address] Lew Tim M.D. [id number] BODY FLUID AEROBIC AND ANAER OBIC CULTUREon 03-26-2025 BODY FLUID AEROBIC AND ANAEROBIC CULTURE CULTURE Moderate Growth Mixed Enteric Bacilli Light Growth Normal Enteric Vesta PARABACTEROIDES DISTASONIS Few Growth (4-10 colonies per plate) Parabacteroides distasonis This identification method was developed and its performance characteristics were determined by [facility]. It has not been cleared or approved by the [place] Food and Drug Administration. It should not be regarded as investigational o r for research. This test is used for clinical purposes. GRAM STAIN RESULT Many WBC No Organisms Seen Abnormal [facility] Comment on above: Order Comment: Lab r eordered aerobic/anaerobic culture per request on requisition. Source on requisition: L pelvic abscess drain. Performed By: #### 4 6299 #### [facility] [address] [place] [address] Lew Tim M.D. [id number] BODY FLUID AEROBIC AND ANAEROBIC CULTURE CULTURE Heavy Growth Mixed Enteric Bacilli Heavy Growth Normal Enteric Vesta BACTEROIDES OVATUS Moderate Growth Bacteroides ovatus (B. fragilis Group) GRAM STAIN RESULT Many WBC No Organisms Seen Abnormal [facility] Comment on above: Order Comment: Lab r eordered aerobic/anaerobic culture per request on requisition. Performed By: #### 4 4197 #### [facility] [address] [place] [address] Lew Tim M.D. [id number] Basic metabolic 2000 panelon 03-26-2025 Anion gap [Moles/Vol] 14 mmol/L 10 - 2 0 mmol/L [facility] Calcium [Mass/Vol] 8.4 mg/dL 8.4 - 10. 2 mg/dL [facility] Chloride [Moles/Vol] 101 mmol/L 98 - 10 8 mmol/L [facility] Creatinine [Mass/Vol] 0.47 mg/dL 0.40 - 1.10 mg/dL [facility] GFR/1.73 sq M.predicted CKD-EPI (S/P/Bld) [Vol rate/Area] 109 - PINF [facility] Glucose [Mass/Vol] 108 mg/dL High 65 - 99 mg/dL [facility] HCO3 [Moles/Vol] 23 mmol/L 21 - 32 mmol/L [facility] Interpretation and review of laboratory results Abnormal [facility] Potassium [Moles/Vol] 4.5 mmol/L 3.5 - 5.1 mmol/L [facility] Sodium [Moles/Vol] 133 mmol/L Low 135 - 145 mmol/L [facility] Urea nitrogen [Mass/Vol] 9 mg/dL 8 - 25 mg/dL [facility] Urea nitrogen/Creatinine [Mass ratio] 19.1 mg/mg 10.0 - 20.0 [facility] CBCon 03-26-2025 AUTO NRBC 0.0 % Normal [facility] Comment on above: Performed By: #### 4 7395 ####[facility] [address] [place], [place] [address] Lew Tim M.D. [id number] AUTO NRBC ABS COUNT 0.00 K/mcL Normal 0.00-0.00 [facility] Comment on above: Performed By: #### 4 3518 ####[facility] [address] [place] [address] Lew Tim M.D. [id number] Erythrocyte distribution width (RBC) [Ratio] 16.0 % High 11.6-14.8 [facility] Comment on above: Performed By: #### 4 5238 ####[facility] [address] [place], [place] [address] Lew Tim M.D. [id number] Hematocrit (Bld) [Volume fraction] 36.0 % Normal 36.0-46.0 [facility] Comment on above: Performed By: #### 4 [id number] ####[facility] [address] [place] [address] Lew Tim M.D. [id number] Hemoglobin (Bld) [Mass/Vol] 11.3 g/dL Low 12.0-16.0 [facility] Comment on above: Performed By: #### 4 [id number] ####[facility] [address] [place] [address] Lew Tim M.D. [id number] MCH (RBC) [Entitic mass] 30.4 pg Normal 26.0-34.0 [facility] Comment on above: Performed By: #### 4 [id number] ####[facility] [address] [place] [address] Lew Tim M.D. [id number] MCV (RBC) [Entitic vol] 96.8 fL Normal 80.0-100.0 [facility] Comment on above: Performed By: #### 4 [id number] ####[facility] [address] [place], [place] [address] Lew Tim M.D. [id number] MEAN CORPUSCULAR HEMOGLOBIN CONC 31.4 g/dL Normal 31.0-37.0 [facility] Comment on above: Performed By: #### 4 [id number] ####[facility] [address] [place], [place] [address] Lew Tim M.D. [id number] Platelet mean volume (Bld) [Entitic vol] 9.8 fL Normal 9.4-12.4 [facility] Comment on above: Performed By: #### 4 [id number] ####[facility] [address] [place], [place] [address] Lew Tim M.D. [id number] Platelets (Bld) [#/Vol] 400 10*3/uL Normal 150-400 [facility] Comment on above: Performed By: #### 4 [id number] ####[facility] [address] [place] [address] Lew Tim M.D. [id number] RBC (Bld) [#/Vol] 3.72 10*6/uL Low 4.00-5.20 [facility] Comment on above: Performed By: #### 4 [id number] ####[facility] [address] [place] [address] 11[address] Lew Tim M.D. [id number] WBC (Bld) [#/Vol] 13.42 10*3/uL High 4.50-11.00 [facility] Comment on above: Performed By: #### 4 [id number] ####[facility] [address] [place] [address] Lew Tim M.D. [id number] CBC panel Auto (Bld)on 03-26 Erythrocyte distribution width (RBC) [Entitic vol] 16 % High 11.6 - 14.8 % [facility] Hematocrit (Bld) [Volume fraction] 36 % 36.0 - 46.0 % [facility] Hemoglobin (Bld) [Mass/Vol] 11.3 g/dL Low 12.0 - 16.0 g/dL [facility] Interpretation and review of laboratory results Abnormal [facility] MCH (RBC) [Entitic mass] 30.4 pg 26.0 - 34.0 pg [facility] MCHC (RBC) [Mass/Vol] 31.4 g/dL 31.0 - 37.0 g/dL [facility] MCV (RBC) [Entitic vol] 96.8 fL 80.0 - 100.0 fL [facility] Nucleated RBC (Bld) [#/Vol] 0 10*3/uL [facility] Nucleated RBC/100 WBC (Bld) [Ratio] 0 % [facility] Platelet mean volume (Bld) [Entitic vol] 9.8 fL 9.4 - 12.4 fL [facility] Platelets (Bld) [#/Vol] 400 10*3/uL [facility] RBC (Bld) [#/Vol] 3.72 10*6/uL Low [facility] WBC (Bld) [#/Vol] 13.42 10*3/uL [facility] CONSULTon 03-26-2025 CONSULT [facility] INTERVENTIONAL RADIOLOGY CONSULT NOTE The patient's chart to include history and physical, pertinent allergies, code status, laboratory and available pertinent imaging were reviewed. * Diverticulitis of colon with perforation Assessment & Plan 59 yo female who [facility] with worsening abdominal pain for a week. CT A/P: acute sigmoid diverticulitis with kay perforation and pelvic phlegmon, measuring 9.5 x 3.5cm 03/16: S/p ex-lap with diverting sigmoid colostomy and abdominal washout 03/22 CT A/P:Postoperative fluid collections in the pelvis which may represent developing abscesses IR consulted by surgery for pelvic drain 03/[address] drain d/t location of fluid collection 03/26: IR reconsulted for re-evaluation of drain placement repeat CT pending WBC at 13.42 from , continue to trend Will plan to attempt drain placement vs aspiration pending IR schedule NPO Hold all AC/AP The patient will be scheduled for the requested abscess drain placement vs aspiration. Procedure date and time for in-patients TBD by the [employer] control desk @ [phone] pending emergent cases and other scheduling demands. Please call the [facility] out-patient office @ [phone] (Option 0) if requested procedure is desired after discharge. Preprocedural needs: NPO 6 hours prior to planned procedure, DVT prophylaxis hold as per protocol, and antiplatelet medication hold as per protocol Pertinent Information: Antiplatelet/Anticoag ulation: Aspirin 81 mg and Lovenox Code Status: Full Code Allergies: Patient has no known allergies. Laboratory: Laboratory 03/26/25 7:59 AM Radiology 03/26/25 7:59 AM Medications 03/26/25 7:59 AM Transcriptions 03/26/25 7:59 AM Lab Results Component Value Date BUN 9 03/26/2025 CREATININE 0.47 03/26/2025 EGFR 109 03/26/2025 BCR 19.1 03/26/2025 Lab Results Component Value Date PROTIME 14.2 03/16/2025 INR 1.1 03/16/2025 Lab Results Component Value Date WBC 13.42 (H) 03/26/2025 RBC 3.72 (L) 03/26/2025 HGB 11.3 (L) 03/26/2025 HCT 36.0 03/26/2025 PLT 400 03/26/2025 Pertinent image (if applicable): VIR Tish-procedure lab value guideline: Table 1. LOW Bleeding Risk Laboratory Guidelines Low Bleeding Risk Procedures Target Laboratory Values3 Bone Marrow Biopsy [Platelet Count - N/A] Catheter exchanges (gastrostomy, biliary, nephrostomy, abscess, including gastrostomy/gastrojej unostomy conversions) CVC tunneled >/= 8 Fr* Diagnostic venography and select venous interventions: pelvis and extremities Dialysis shunt interventions IVC filter placement and removal Non-tunneled chest tube placement for pleural effusion Non-tunneled venous access and removal (including PICC placement) and Tunneled venous access Paracentesis Peripheral nerve blocks, joint, and musculoskeletal injections Sacroiliac joint injection and sacral lateral branch blocks Superficial abscess drainage or biopsy (palpable lesion, lymph node, soft tissue, breast, thyroid) Thoracentesis Trans jugular liver biopsy Trigger point injections including piriformis Tunneled drainage catheter placement* PT/INR < 3.0 Platelets > 20,000/mcL (Consider transfusing platelets if <20,000/mcL) If patient with Chronic Liver Disease (based on expert opinion): PT/INR < 3.0 (Consider Vitamin K infusion if INR >3.0) Platelets > 20,000/mcL (Transfuse platelets if <20,000/mcL in patients with a large spleen) Fibrinogen > 100mg/dL (Consider cryoprecipitate if <100mg/dL) *If on Direct Oral Anticoagulant (DOAC), follow HIGH Bleeding Risk recommendations in Table 2 and Table 3 Table 2. HIGH Bleeding Risk Laboratory Guidelines: HIGH Bleeding Risk Procedures Target Laboratory Values3 Ablations: solid organs, bone, soft tissue, lung Arterial diagnostic interventions: aortic, pelvic, mesenteric, peripheral Biliary interventions (including cholecystostomy tube placement) Catheter directed thrombolysis/thrombec duran- DVT, PE, portal vein (Highly case dependent) Deep abscess drainage (e.g., lung parenchyma, abdominal, pelvic, retroperitoneal) Deep non organ biopsies (e.g., spine, soft tissue in intra-abdominal, retroperitoneal, pelvic compartments) Gastrostomy/gastrojej unostomy placement IVC filter removal complex Lumbar puncture Lymphangiography Portal vein interventions Solid organ biopsies Spine procedures with risk of spinal or epidural hematoma (e.g., kyphoplasty, vertebroplasty, epidural injections, facet blocks) Trans jugular intrahepatic portosystemic shunt Port placement/removal (Buried) Urinary tract interventions (including nephrostomy tube placement, ureteral dilation, stone removal) Venous interventions: intrathoracic and [employer] intervention PT/INR < 1.8 (if arterial access, femoral: INR < 1.8, radial: INR < 2.2) Platelets > 50,000/mcL (Consider transfusing platelets if <50,000/mcL) If (more content not included)... Normal [facility] CT ABDOMEN PELVIS WITH IV CO NTRAST ONLYon 03-26-2025 CT ABDOMEN PELVIS WITH IV CONTRAST ONLY EXAMINATION: ENHANCED CT SCAN OF THE ABDOMEN AND PELVIS 03/26/2025. HISTORY: Dx: K57.20 (Diverticulitis of colon with perforation) Injury/Trauma or Illness?:Illness/Othe r How long have you had these symptoms (acute/chronic)?:Acut e Eval pelvic fluid collection COMPARISON FILMS: Enhanced CT scan of the abdomen and pelvis 03/22/2025. TECHNIQUE: 3 mm axial images from lung bases through ischial tuberosities following administration of intravenous contrast were obtained. Sagittal, coronal reconstructions were also performed. Dose reduction techniques were achieved by using automated exposure control and/or adjustment of mA and/or kV according to patient size and/or use of iterative reconstruction technique. FINDINGS: There are some linear-appearing densities in the dependent portions of the lungs, representing discoid atelectatic changes. The remaining visualized lung bases seem normal. Heart size seems normal. CT ABDOMEN: There is a large low-density lesion in the medial segment of left hepatic lobe measuring 3.2 cm with average Hounsfield units of approximately 3, essentially unchanged. Besides there is diffuse fatty infiltration of the liver with additional fatty infiltration along the falciform ligament in the medial segment of the left hepatic lobe. There is some increased density in the dependent portion of the gallbladder may represent some vicarious excretion of contrast. Spleen, pancreas, adrenal glands, kidneys appear normal. Minimal body wall edema is seen. The abdominal aorta is heavily atherosclerotic. There are a few small scattered lymph nodes in the retroperitoneum. Portal, splenic veins are patent. There are a few collateral vessels in the left abdomen. Bowel loops are not as prominently dilated as were seen previously except for a few distal ileal loops in the right mid abdomen and jejunal loops in the left mid abdomen which seems slightly prominent. No significant thickening or induration of surrounding fat is seen. The patient has undergone colostomy in the left lower quadrant. The portion of the colostomy as well as part of the sigmoid colon extending to this colostomy is diffusely thickened, without significant induration of surrounding fat. There is diffusely thickened rectosigmoid as well. There is some haziness in the presacral space. There is a mottled pocket of air-fluid collection in the upper pelvis, in the midline, with a few droplets of air which could be extraluminal in nature, extending to the anterior aspect of the bladder. These extraluminal air bubbles can be seen on images 121-134 sequence 3, however, just inferior to it, there is a mottled air-fluid collection, with irregular-appearing juárez, enhancing juárez, on image 121 sequence 3 measures 5.5 x 8.9 cm and has more organized appearance. This component had no air bubbles on the previous examination and measured approximately 6.3 x 9.0 cm. There is a mottled air-fluid collection along the upper right pelvis, with thickened juárez, and now clearcut air bubbles, measuring 3.1 x 4.7 cm. This probably is contiguous with the fluid collection which seems to be extending towards the left. This inferior component on the current examination measures approximately 4.0 x 10.0 cm and has thick juárez, as well as air bubbles in the nondependent portion. CT PELVIS: The bladder is normal. The uterus, ovaries are normal. There is no ureterolithiasis. There is no pelvic adenopathy. The visualized osseous structures demonstrate no gross abnormalities. IMPRESSION: 1. Status post colostomy in the left lower quadrant. The portion of the sigmoid colon extending to the colostomy, as well as distal to it, involving the sigmoid colon, rectosigmoid, is diffusely thickened, has enhancing wall, concerning for ongoing colitis. There are associated diverticula but none of these diverticula seem to be inflamed. 2. Multiple abscesses in the lower abdomen/upper pelvis with a focus of mottled air which seems to be extraluminal in the upper pelvis. These fluid collections were seen previously, probably slightly enlarged and have definite enhancement of the wall and now have air bubbles within them, compatible with abscesses. 3. Fatty liver with a simple cyst in the medial segment of left hepatic lobe, essentially unchanged. KKV/lab Workstation ID: [id number] Dictated by: MIGUE FOY on SunMar 26, 2025 7:28:21 AM EDT Transcribed by: DOROTHY IBARRA on SunMar 26, 2025 8:09:34 AM EDT Finalized by: MIGUE FOY on SunMar 26, 2025 8:59:43 AM EDT Normal [facility] Comment on above: Order Comment: Injur y/Trauma or Illness?:Illness/OtherHow long have you had these symptoms (acute/chronic)?:AcuteReason for exam?:eval pelvic fluid collectionType of Exam?:InitialAdditional signs and symptoms?:Abnormal Results; Abdominal Pain CT Abdomen and Pelvis W cont rast Yary 03-26-2025 GE [employer] GE RIS [facility] Radiology Study observation (narrative) [facility] CV IR ABSCESS DRAIN INSERT ( SPECIFY LOCATION)on 03-26-2025 CV IR ABSCESS DRAIN INSERT (SPECIFY LOCATION) EXAMINATION: PERCUTANEOUS DRAINAGE CATHETER PLACEMENT x [address] GUIDANCE HISTORY: 59-year-old female with history of diverticulitis status post diverting sigmoid colostomy and washout. IR consulted for drainage of postoperative fluid collections. PHYSICIAN: Stan Day D.O. SEDATION: Intravenous conscious sedation utilizing intermittent IV Versed and IV fentanyl per nursing notes documented in electronic medical record. Continuous noninvasive cardiopulmonary and oxygen saturation monitoring was implemented by an independent observer throughout the procedure. Sedation time = 52 minutes. RADIATION DOSE / FLUOROSCOPY TIME Total DLP: 566 mGy cm TECHNIQUE/FINDINGS: Risks, benefits and alternatives were explained to the patient, and informed consent was obtained. The patient was brought to the CT suite and placed in a supine position. The patient was prepped and draped in a sterile fashion. All elements of maximal sterile barrier protection were performed, including sterile covering of the ultrasound probe. Pause and confirm (time-out) was performed with all staff in the room before proceeding. Limited CT of the lower abdomen and pelvis was performed demonstrating multiple heterogeneous fluid collections interspersed amongst small bowel. Lidocaine was used for local anesthesia. Under CT guidance, a 18 gauge Chiba needle was advanced into the largest anterior collection. Several cc of purulent fluid were aspirated and sent for further testing. Following serial dilation and over a stiff Amplatz wire, a 10 Fr pigtail catheter was placed and connected to a suction bulb. In a similar fashion, a more posterior collection was accessed via a right-sided approach using a 18 gauge Chiba needle under CT guidance. Several cc of purulent fluid were aspirated and sent for further testing. Following serial dilation and over a stiff Amplatz wire, a 2nd 10 Fr pigtail catheter was placed and connected to a suction bulb. The drains were sutured to the skin and sterile dressings placed. The patient tolerated the procedure without immediate complication. IMPRESSION: Successful percutaneous drain placement x 2 as above. Workstation ID: [id number] Dictated by: STAN DAY on SunMar 26, 2025 4:53:01 PM EDT Transcribed by: STAN DAY on SunMar 26, 2025 4:53:01 PM EDT Finalized by: STAN DAY on SunMar 26, 2025 4:53:01 PM EDT [facility] CV IR CT [facility] 03-26-[address] ABSCESS DRAINAGE ABDOMINAL WALL EXAMINATION: PERCUTANEOUS DRAINAGE CATHETER PLACEMENT x [address] GUIDANCE HISTORY: 59-year-old female with history of diverticulitis status post diverting sigmoid colostomy and washout. IR consulted for drainage of postoperative fluid collections. PHYSICIAN: Stan Day D.O. SEDATION: Intravenous conscious sedation utilizing intermittent IV Versed and IV fentanyl per nursing notes documented in electronic medical record. Continuous noninvasive cardiopulmonary and oxygen saturation monitoring was implemented by an independent observer throughout the procedure. Sedation time = 52 minutes. RADIATION DOSE / FLUOROSCOPY TIME Total DLP: 566 mGy cm TECHNIQUE/FINDINGS: Risks, benefits and alternatives were explained to the patient, and informed consent was obtained. The patient was brought to the CT suite and placed in a supine position. The patient was prepped and draped in a sterile fashion. All elements of maximal sterile barrier protection were performed, including sterile covering of the ultrasound probe. Pause and confirm (time-out) was performed with all staff in the room before proceeding. Limited CT of the lower abdomen and pelvis was performed demonstrating multiple heterogeneous fluid collections interspersed amongst small bowel. Lidocaine was used for local anesthesia. Under CT guidance, a 18 gauge Chiba needle was advanced into the largest anterior collection. Several cc of purulent fluid were aspirated and sent for further testing. Following serial dilation and over a stiff Amplatz wire, a 10 Fr pigtail catheter was placed and connected to a suction bulb. In a similar fashion, a more posterior collection was accessed via a right-sided approach using a 18 gauge Chiba needle under CT guidance. Several cc of purulent fluid were aspirated and sent for further testing. Following serial dilation and over a stiff Amplatz wire, a 2nd 10 Fr pigtail catheter was placed and connected to a suction bulb. The drains were sutured to the skin and sterile dressings placed. The patient tolerated the procedure without immediate complication. IMPRESSION: Successful percutaneous drain placement x 2 as above. Workstation ID: [id number] Dictated by: STAN DAY on [place] Mar 26, 2025 4:53:01 PM EDT Transcribed by: STAN DAY on [place] Mar 26, 2025 4:53:01 PM EDT Finalized by: STAN DAY on [place] Mar 26, 2025 4:53:01 PM EDT Normal [facility] Glucose (Bld) [Mass/Vol]on 0 03-26-2025 Glucose [Mass/Vol] 121 mg/dL High 65 - 99 mg/dL [facility] Interpretation and review of laboratory results Abnormal [facility] Glucose [Mass/Vol] 75 mg/dL 65 - 99 mg/dL [facility] Interpretation and review of laboratory results Normal [facility] Glucose [Mass/Vol] 93 mg/dL 65 - 99 mg/dL [facility] Interpretation and review of laboratory results Normal [facility] Glucose [Mass/Vol] 83 mg/dL 65 - 99 mg/dL [facility] Interpretation and review of laboratory results Normal [facility] Glucose [Mass/Vol] 103 mg/dL High 65 - 99 mg/dL [facility] Interpretation and review of laboratory results Abnormal [facility] Glucose [Mass/Vol] 95 mg/dL 65 - 99 mg/dL [facility] Interpretation and review of laboratory results Normal [facility] MAGNESIUM LEVELon 03-26-2025 Magnesium [Mass/Vol] 1.9 mg/dL Normal 1.6-2.4 [facility] Comment on above: Performed By: #### 4 [id number] ####[facility] [address] [place] [address] Lew Tim M.D. [id number] Performed By: #### 4 [id number] #### [facility] [address] [place] [address] Lew Tim M.D. [id number] Magnesium Levelon 03-26-2025 Magnesium [Mass/Vol] 1.9 mg/dL 1.6 - 2 .4 mg/dL [facility] Magnesium [Mass/Vol] 1.9 mg/dL 1.6 - 2 .4 mg/dL [facility] Magnesium [Mass/Vol]on 03-26 Interpretation and review of laboratory results Normal [facility] No Panel Informationon 03-26 GE RIS GE RIS [facility] Radiology Study observation (narrative) [facility] Interpretation and review of laboratory results Normal [facility] PHOSPHORUSon 03-26-2025 Phosphate [Mass/Vol] 3.0 mg/dL Normal 2.7-4.5 [facility] Comment on above: Performed By: #### 4 [id number] #### [facility] [address] [place], [place] [address] Lew Tim M.D. [id number] POC GLUCOSE - [facility] 025 Glucose [Mass/Vol] 121 mg/dL High 65-99 [facility] Comment on above: Performed By: #### 4 [id number] #### [facility] [address] [place], [place] [address] Lew Tim M.D. [id number] Glucose [Mass/Vol] 75 mg/dL Normal 65-99 [facility] Comment on above: Performed By: #### 4 6209 #### [facility] [address] [place], [place] [address] Lew Tim M.D. [id number] Glucose [Mass/Vol] 93 mg/dL Normal 65-99 [facility] Comment on above: Performed By: #### 4 6221 #### [facility] [address] [place] [address] Lew Tim M.D. [id number] Glucose [Mass/Vol] 83 mg/dL Normal 65-99 [facility] Comment on above: Performed By: #### 4 6299 #### [facility] [address] [place] [address] Lew Tim M.D. [id number] Glucose [Mass/Vol] 103 mg/dL High 65-99 [facility] Comment on above: Performed By: #### 4 6299 #### [facility] [address] [place] [address] Lew Tim M.D. [id number] Glucose [Mass/Vol] 95 mg/dL Normal 65-99 [facility] Comment on above: Performed By: #### 4 [id number] #### [facility] [address] [place], [place] [address] Lew Tim M.D. [id number] Phosphoruson 03-26-2024 Phosphate [Mass/Vol] 3 mg/dL 2.7 - 4 .5 mg/dL [facility] BASIC METABOLIC PANELon Anion gap [Moles/Vol] 12 mmol/L Normal 10-20 [facility] Comment on above: Order Comment: Injur y/Trauma or Illness?:Illness/Other How long have you had these symptoms (acute/chronic)?:Unknown Reason for exam?:NG/OG tube placement History of cancer?:. Surgeries, chemotherapy, or radiation?:. Type of Exam?:Initial Additional signs and symptoms?:. Performed By: #### 4 6124 ####[facility] [address] [place] [address] Lew Tim M.D. [id number] Calcium [Mass/Vol] 8.6 mg/dL Normal 8.4-10.2 [facility] Comment on above: Order Comment: Injur y/Trauma or Illness?:Illness/Other How long have you had these symptoms (acute/chronic)?:Unknown Reason for exam?:NG/OG tube placement History of cancer?:. Surgeries, chemotherapy, or radiation?:. Type of Exam?:Initial Additional signs and symptoms?:. Performed By: #### 4 6129 ####[facility] [address] [place] [address] Lew Tim M.D. [id number] Chloride [Moles/Vol] 103 mmol/L Normal 98-108 [facility] Comment on above: Order Comment: Injur y/Trauma or Illness?:Illness/Other How long have you had these symptoms (acute/chronic)?:Unknown Reason for exam?:NG/OG tube placement History of cancer?:. Surgeries, chemotherapy, or radiation?:. Type of Exam?:Initial Additional signs and symptoms?:. Performed By: #### 4 6118 ####[facility] [address] [place], [place] [address] Lew Tim M.D. [id number] Creatinine [Mass/Vol] 0.45 mg/dL Normal 0.40-1.10 [facility] Comment on above: Order Comment: Injur y/Trauma or Illness?:Illness/Other How long have you had these symptoms (acute/chronic)?:Unknown Reason for exam?:NG/OG tube placement History of cancer?:. Surgeries, chemotherapy, or radiation?:. Type of Exam?:Initial Additional signs and symptoms?:. Performed By: #### 4 6111 ####[facility] [address] [place], [place] [address] Lew Tim M.D. [id number] EGFR 110 mL/min/1.73 m2 Normal >=60 [facility] Comment on above: Order Comment: Injur y/Trauma or Illness?:Illness/Other How long have you had these symptoms (acute/chronic)?:Unknown Reason for exam?:NG/OG tube placement History of cancer?:. Surgeries, chemotherapy, or radiation?:. Type of Exam?:Initial Additional signs and symptoms?:. Result Comment: Marce mated GFR was calculated using the 2020 CKD-EPI creatinine equation. Performed By: #### 4 6160 ####[facility] [address] [place], [place] [address] Lew Tim M.D. [id number] Glucose [Mass/Vol] 106 mg/dL High 65-99 [facility] Comment on above: Order Comment: Injur y/Trauma or Illness?:Illness/Other How long have you had these symptoms (acute/chronic)?:Unknown Reason for exam?:NG/OG tube placement History of cancer?:. Surgeries, chemotherapy, or radiation?:. Type of Exam?:Initial Additional signs and symptoms?:. Performed By: #### 4 6193 ####[facility] [address] [place], [place] [address] Lew Tim M.D. [id number] HCO3 (Bld) [Moles/Vol] 23 mmol/L Normal 21-32 [facility] Comment on above: Order Comment: Injur y/Trauma or Illness?:Illness/Other How long have you had these symptoms (acute/chronic)?:Unknown Reason for exam?:NG/OG tube placement History of cancer?:. Surgeries, chemotherapy, or radiation?:. Type of Exam?:Initial Additional signs and symptoms?:. Performed By: #### 4 6106 ####[facility] [address] [place], [place] [address] Lew Tim M.D. [id number] Potassium [Moles/Vol] 4.3 mmol/L Normal 3.5-5.1 [facility] Comment on above: Order Comment: Injur y/Trauma or Illness?:Illness/Other How long have you had these symptoms (acute/chronic)?:Unknown Reason for exam?:NG/OG tube placement History of cancer?:. Surgeries, chemotherapy, or radiation?:. Type of Exam?:Initial Additional signs and symptoms?:. Result Comment: Slig htly Hemolyzed Performed By: #### 4 6145 ####[facility] [address] [place], [place] [address] Lew Tim M.D. [id number] Sodium [Moles/Vol] 134 mmol/L Low 135-145 [facility] Comment on above: Order Comment: Injur y/Trauma or Illness?:Illness/Other How long have you had these symptoms (acute/chronic)?:Unknown Reason for exam?:NG/OG tube placement History of cancer?:. Surgeries, chemotherapy, or radiation?:. Type of Exam?:Initial Additional signs and symptoms?:. Performed By: #### 4 6146 ####[facility] [address] [place], [place] [address] Lew Tim M.D. [id number] Urea nitrogen [Mass/Vol] 6 mg/dL Low 8-25 [facility] Comment on above: Order Comment: Injur y/Trauma or Illness?:Illness/Other How long have you had these symptoms (acute/chronic)?:Unknown Reason for exam?:NG/OG tube placement History of cancer?:. Surgeries, chemotherapy, or radiation?:. Type of Exam?:Initial Additional signs and symptoms?:. Performed By: #### 4 6196 ####[facility] [address] [place] [address] Lew Tim M.D. [id number] Urea nitrogen/Creatinine [Mass ratio] 13.3 mg/mg Normal 10.0-20.0 [facility] Comment on above: Order Comment: Injur y/Trauma or Illness?:Illness/Other How long have you had these symptoms (acute/chronic)?:Unknown Reason for exam?:NG/OG tube placement History of cancer?:. Surgeries, chemotherapy, or radiation?:. Type of Exam?:Initial Additional signs and symptoms?:. Performed By: #### 4 6121 ####[facility] [address] [place], [place] [address] Lew Tim M.D. [id number] Basic metabolic 2000 panelOr dered By: Edwin Spencer on 03-25-2025 Anion gap [Moles/Vol] 12 mmol/L 10 - 2 0 mmol/L [facility] Calcium [Mass/Vol] 8.6 mg/dL 8.4 - 10. 2 mg/dL [facility] Chloride [Moles/Vol] 103 mmol/L 98 - 10 8 mmol/L [facility] Creatinine [Mass/Vol] 0.45 mg/dL 0.40 - 1.10 mg/dL [facility] GFR/1.73 sq M.predicted CKD-EPI (S/P/Bld) [Vol rate/Area] 110 - PINF [facility] Glucose [Mass/Vol] 106 mg/dL High 65 - 99 mg/dL [facility] HCO3 [Moles/Vol] 23 mmol/L 21 - 32 mmol/L [facility] Interpretation and review of laboratory results Abnormal [facility] Potassium [Moles/Vol] 4.3 mmol/L 3.5 - 5.1 mmol/L [facility] Sodium [Moles/Vol] 134 mmol/L Low 135 - 145 mmol/L [facility] Urea nitrogen [Mass/Vol] 6 mg/dL Low 8 - 25 mg/dL [facility] Urea nitrogen/Creatinine [Mass ratio] 13.3 mg/mg 10.0 - 20.0 [facility] CBCon 03-25-2025 AUTO NRBC 0.0 % Normal [facility] Comment on above: Performed By: #### 4 [id number] ####[facility] [address] [place], [place] [address] Lew Tim M.D. [id number] AUTO NRBC ABS COUNT 0.00 K/mcL Normal 0.00-0.00 [facility] Comment on above: Performed By: #### 4 [id number] ####[facility] [address] [place], [place] [address] Lew Tim M.D. [id number] Erythrocyte distribution width (RBC) [Ratio] 16.1 % High 11.6-14.8 [facility] Comment on above: Performed By: #### 4 [id number] ####[facility] [address] [place], [place] [address] Lew Tim M.D. [id number] Hematocrit (Bld) [Volume fraction] 35.1 % Low 36.0-46.0 [facility] Comment on above: Performed By: #### 4 [id number] ####[facility] [address] [place], [place] [address] Lew Tim M.D. [id number] Hemoglobin (Bld) [Mass/Vol] 11.5 g/dL Low 12.0-16.0 [facility] Comment on above: Performed By: #### 4 [id number] ####[facility] [address] [place] [address] Lew Tim M.D. [id number] MCH (RBC) [Entitic mass] 31.3 pg Normal 26.0-34.0 [facility] Comment on above: Performed By: #### 4 [id number] ####[facility] [address] [place], [place] [address] Lew Tim M.D. [id number] MCV (RBC) [Entitic vol] 95.6 fL Normal 80.0-100.0 [facility] Comment on above: Performed By: #### 4 [id number] ####[facility] [address] [place] [address] Lew Tim M.D. [id number] MEAN CORPUSCULAR HEMOGLOBIN CONC 32.8 g/dL Normal 31.0-37.0 [facility] Comment on above: Performed By: #### 4 [id number] ####[facility] [address] [place], [place] [address]Clifford Tim M.D. [id number] Platelet mean volume (Bld) [Entitic vol] 9.8 fL Normal 9.4-12.4 [facility] Comment on above: Performed By: #### 4 [id number] ####[facility] [address] [place], [place] [address] Lew Tim M.D. [id number] Platelets (Bld) [#/Vol] 385 10*3/uL Normal 150-400 [facility] Comment on above: Performed By: #### 4 [id number] ####[facility] [address] [place] [address] Lew Tim M.D. [id number] RBC (Bld) [#/Vol] 3.67 10*6/uL Low 4.00-5.20 [facility] Comment on above: Performed By: #### 4 [id number] ####[facility] [address] [place] [address] Lwe Tim M.D. [id number] WBC (Bld) [#/Vol] 11.06 10*3/uL High 4.50-11.00 [facility] Comment on above: Performed By: #### 4 [id number] ####[facility] [address] [place] [address] Lew Tim M.D. [id number] CBC panel Auto (Bld)on 03-25 Erythrocyte distribution width (RBC) [Entitic vol] 16.1 % High 11.6 - 14.8 % [facility] Hematocrit (Bld) [Volume fraction] 35.1 % Low 36.0 - 46.0 % [facility] Hemoglobin (Bld) [Mass/Vol] 11.5 g/dL Low 12.0 - 16.0 g/dL [facility] Interpretation and review of laboratory results Abnormal [facility] MCH (RBC) [Entitic mass] 31.3 pg 26.0 - 34.0 pg [facility] MCHC (RBC) [Mass/Vol] 32.8 g/dL 31.0 - 37.0 g/dL [facility] MCV (RBC) [Entitic vol] 95.6 fL 80.0 - 100.0 fL [facility] Nucleated RBC (Bld) [#/Vol] 0 10*3/uL [facility] Nucleated RBC/100 WBC (Bld) [Ratio] 0 % [facility] Platelet mean volume (Bld) [Entitic vol] 9.8 fL 9.4 - 12.4 fL [facility] Platelets (Bld) [#/Vol] 385 10*3/uL [facility] RBC (Bld) [#/Vol] 3.67 10*6/uL Low [facility] ealth WBC (Bld) [#/Vol] 11.06 10*3/uL High [facility] CCTA Heart (Proctologist akanksha fox)on 03-25-2025 [employer] CCTA Heart (Proctologist akanksha fox)Ordered By: Grant Kylah on 03-25-2025 [employer] Work Phone: CT CCTA HEART (FIELD PLACEMENT DIRECTOR READ)on 03-25-2025 CT CCTA HEART (FIELD PLACEMENT DIRECTOR READ) Complications: None Quality of study: Excellent [place] Coronaries: Dominance: right Left main (LM): No evidence of stenosis or nonobstructive plaque Left anterior descending (LAD): Minimal calcified plaques noted in the proximal segment with 1 to 24% stenosis (CAD RADS 1) Left circumflex (LCx): No evidence of stenosis or nonobstructive plaque Ramus intermedius: Mixed density plaques noted in the proximal segment with 25 to 49% stenosis (CAD RADS 2) Right coronary artery (RCA): Focal calcified plaque in the midsegment with 50 to 69% stenosis (CAD RADS 3), minimal soft plaque noted within the proximal to mid PDA with 1 to 24% stenosis (CAD RADS 1) Coronary artery calcium score: Left main-0, LAD-35, ramus intermedius-86, circumflex-0, RCA-150. Total calcium score is 271 Agatston units. Non-coronary vessels: Aorta: The ascending aortic dimensions are mildly increased at 3.9 cm in diameter. There is no aortic atheromatous plaque detected. Cardiac Chambers: LV morphology: The left ventricle is normal in size and thickness. No evidence of infarction. No evidence of noncompaction. No thrombus is detected. No ventricular septal defect is detected. LVEDV: 124 ml LVESV: 64 ml LVEF: 48% Stroke volume: 59 ml Right ventricle: Normal in size. Left atrium: The left atrium is mildly enlarged. No evidence of thrombus. There is no patent foramen ovale or atrial septal defect detected. Right atrium: Normal in size. Pericardium: No calcification is detected. Normal thickness. No pericardial effusion is detected. Valve morphology: Aortic valve is trileaflet without thickening or calcification detected. Mitral valve morphology appears normal. The tricuspid and pulmonary valves are not well visualized. *PLEASE SEE SEPARATE RADIOLOGY REPORT FOR NONCARDIAC FINDINGS* Impression: 1. Multivessel coronary artery disease is present with mild to moderate stenosis. Heartflow CT FFR assessment demonstrates values of 0.93 for the LAD, 0.95 for the ramus intermedius, and 0.81 for the right coronary artery lesions all of which are consistent with nonhemodynamically significant stenosis. 2. Elevated coronary artery calcium score at 271 Agatston units which places the patient at the 96 percentile for age, gender, and race based on the Hahn database. 3. Mild left ventricular systolic dysfunction with an ejection fraction calculated at 48% 4. Mildly dilated ascending aorta measuring 3.9 cm in diameter. Dictated by: GRANT JUARES on SunMar 25, 2025 11:59:41 AM EDT Transcribed by: GRANT JUARES on SunMar 25, 2025 11:59:41 AM EDT Finalized by: GRANT JUARES on SunMar 25, 2025 11:59:41 AM EDT Normal [facility] Comment on above: Order Comment: NPO s tatus not required for this exam however caffeine should be minimized prior to exam. CT CCTA HEART WITH AND WITHO UT CONTRASTon 03-25-2025 CT CCTA HEART WITH AND WITHOUT CONTRAST EXAMINATION: CT CCTA heart with and without IV contrast: Supplemental read HISTORY: Dx: K57.20 (Diverticulitis of colon with perforation) COMPARISON: Cardiac MRI from 03/23/[address] of the abdomen and pelvis from 03/22/2025. TECHNIQUE: Initially noncontrast CT images of the heart are performed. This is followed by postcontrast CT images of the heart per CT coronary angiography protocol. A total of 87 mL of Isovue-370 was administered intravenously without event. Coronal and sagittal reconstructions are performed. Dose reduction techniques were achieved by using automated exposure control and/or adjustment of mA and/or kV according to patient size and/or use of iterative reconstruction technique. FINDINGS: There is ectasia of the ascending thoracic aorta which measures approximately 4.1 x 4.0 cm. Imaged descending thoracic aorta is nonaneurysmal. There is no obvious aortic dissection involving the imaged portions of the thoracic aorta. The central pulmonary arteries are normal in caliber. No bulky lymphadenopathy, pleural effusion, or pericardial effusion within the imaged portions of the lower chest. Images of the upper abdomen demonstrates a 3 cm cyst within the central liver. Limited images of the upper abdomen are otherwise unremarkable. Images on lung windows demonstrates a 3 mm subpleural nodule within the left lung base, stable from the recent 03/22/2025 study. 4 mm nodular focus along the minor fissure likely a benign perifissural type nodule. There are bwez-or-lxdgcwly linear foci of subsegmental bilateral lower lung atelectasis. The imaged central airways are grossly patent with exception of a small dependent focus of mucus within the bronchus intermedius. Images on bone windows shows no acute osseous abnormality. IMPRESSION: 1. Ectasia of the ascending thoracic aorta measuring 4.1 x 4.0 cm. 2. Vbmk-nq-wdqfqijy subsegmental bilateral lower lung atelectasis. 3. 3 cm cyst within the central liver. 4. 3 mm subpleural left lung base nodule for which no routine follow-up is recommended based on Fleischner society guidelines. Consider follow-up evaluation in 12 months if there are risk factors for lung cancer/malignancy. 5. Cardiac findings are reported separately. FER/rubén Workstation ID: [id number] Dictated by: MICHELLE BEARD on SunMar 25, 2025 10:43:13 AM EDT Transcribed by: CANDICE THAKKAR on SunMar 25, 2025 10:48:02 AM EDT Finalized by: MICHELLE BEARD on SunMar 25, 2025 4:39:35 PM EDT Normal [facility] Comment on above: Order Comment: NPO s tatus not required for this exam however caffeine should be minimized prior to exam.Injury/Trauma or Illness?:Illness/OtherHow long have you had these symptoms (acute/chronic)?:AcuteReason for exam?:Heart failure, known or suspected, initial workupType of Exam?:InitialAdditional signs and symptoms?:Heart failure, known or suspected, initial workup CTA Heart and Coronary arter ies WO and W contrast Yary 03-25-2025 [facility] CTA Heart and Coronary arter ies WO and W contrast IVOrdered By: Michelle Beard on 03-25-2025 [facility] Work Phone: Glucose (Bld) [Mass/Vol]on 0 03-25-2025 Glucose [Mass/Vol] 138 mg/dL High 65 - 99 mg/dL [facility] Interpretation and review of laboratory results Abnormal [facility] Glucose [Mass/Vol] 107 mg/dL High 65 - 99 mg/dL [facility] Interpretation and review of laboratory results Abnormal [facility] Glucose [Mass/Vol] 97 mg/dL 65 - 99 mg/dL [facility] Interpretation and review of laboratory results Normal [facility] Glucose [Mass/Vol] 99 mg/dL 65 - 99 mg/dL [facility] Interpretation and review of laboratory results Normal [facility] Glucose [Mass/Vol] 108 mg/dL High 65 - 99 mg/dL [facility] Interpretation and review of laboratory results Abnormal [facility] Glucose [Mass/Vol] 113 mg/dL High 65 - 99 mg/dL [facility] Interpretation and review of laboratory results Abnormal [facility] MAGNESIUM LEVELon 03-25-2025 Magnesium [Mass/Vol] 1.9 mg/dL Normal 1.6-2.4 [facility] Comment on above: Performed By: #### 4 6109 ####[facility] [address] [place] [address] Lew Tim M.D. [id number] Performed By: #### 4 6932 #### [facility] [address] [place] [address] [id number] [facility] Magnesium Levelon 03-25-2025 Magnesium [Mass/Vol] 1.9 mg/dL 1.6 - 2 .4 mg/dL [facility] Magnesium [Mass/Vol] 1.9 mg/dL 1.6 - 2 .4 mg/dL [facility] Magnesium [Mass/Vol]on 03-25 Interpretation and review of laboratory results Normal [facility] Interpretation and review of laboratory results Normal [facility] No Panel Informationon 03-25 Radiology Study observation (narrative) [facility] No Panel InformationOrdered By: Edwin Spencer on 03-25-2025 [facility] POC GLUCOSE - Gretrude 025 Glucose [Mass/Vol] 138 mg/dL High 65-99 [facility] Comment on above: Performed By: #### 4 [id number] #### [facility] [address] [place] [address] Lew Tim M.D. [id number] Glucose [Mass/Vol] 107 mg/dL High 65-99 [facility] Comment on above: Performed By: #### 4 [id number] #### [facility] [address] [place] [address] Lew Tim M.D. [id number] Glucose [Mass/Vol] 97 mg/dL Normal 65-99 [facility] Comment on above: Performed By: #### 4 [id number] #### [facility] [address] [place] [address] Lew Tim M.D. [id number] Glucose [Mass/Vol] 99 mg/dL Normal 65-99 [facility] Comment on above: Performed By: #### 4 [id number] #### [facility] [address] [place] [address] Lew Tim M.D. [id number] Glucose [Mass/Vol] 108 mg/dL High 65-99 [facility] Comment on above: Performed By: #### 4 [id number] #### [facility] [address] [place], [place] [address] Lew Tim M.D. [id number] Glucose [Mass/Vol] 113 mg/dL High 65-99 [facility] Comment on above: Performed By: #### 4 [id number] #### [facility] [address] [place] [address] Lew Tim M.D. [id number] CALCIUM, IONIZEDon CALCIUM IONIZED 4.8 mg/dL Normal 4.5-5.3 [facility] Comment on above: Performed By: #### 4 5190 ####[facility] [address] [place] [address] Lew Tim M.D. [id number] CBCon 03-24-2025 AUTO NRBC 0.0 % Normal [facility] Comment on above: Performed By: #### 4 6208 #### [facility] [address] [place], [place] [address] Lew Tim M.D. [id number] AUTO NRBC ABS COUNT 0.00 K/mcL Normal 0.00-0.00 [facility] Comment on above: Performed By: #### 4 6240 #### [facility] [address] [place], [place] [address] Lew Tim M.D. [id number] Erythrocyte distribution width (RBC) [Ratio] 16.1 % High 11.6-14.8 [facility] Comment on above: Performed By: #### 4 6260 #### [facility] [address] [place] [address] Lew Tim M.D. [id number] Hematocrit (Bld) [Volume fraction] 37.2 % Normal 36.0-46.0 [facility] Comment on above: Performed By: #### 4 6291 #### [facility] [address] [place] [address] Lew Tim M.D. [id number] Hemoglobin (Bld) [Mass/Vol] 11.7 g/dL Low 12.0-16.0 [facility] Comment on above: Performed By: #### 4 1909 #### [facility] [address] [place], [place] [address] Lew Tim M.D. [id number] MCH (RBC) [Entitic mass] 30.5 pg Normal 26.0-34.0 [facility] Comment on above: Performed By: #### 4 0086 #### [facility] [address] [place], [place] [address] Lew Tim M.D. [id number] MCV (RBC) [Entitic vol] 97.1 fL Normal 80.0-100.0 [facility] Comment on above: Performed By: #### 4 9534 #### [facility] [address] [place], [place] [address] Lew Tim M.D. [id number] MEAN CORPUSCULAR HEMOGLOBIN CONC 31.5 g/dL Normal 31.0-37.0 [facility] Comment on above: Performed By: #### 4 [id number] #### [facility] [address] [place] [address] Lew Tim M.D. [id number] Platelet mean volume (Bld) [Entitic vol] 9.6 fL Normal 9.4-12.4 [facility] Comment on above: Performed By: #### 4 [id number] #### [facility] [address] [place] [address] Lew Tim M.D. [id number] Platelets (Bld) [#/Vol] 393 10*3/uL Normal 150-400 [facility] Comment on above: Performed By: #### 4 [id number] #### [facility] [address] [place] [address] Lew Tim M.D. [id number] RBC (Bld) [#/Vol] 3.83 10*6/uL Low 4.00-5.20 [facility] Comment on above: Performed By: #### 4 [id number] #### [facility] [address] [place], [place] [address] Lew Tim M.D. [id number] WBC (Bld) [#/Vol] 8.11 10*3/uL Normal 4.50-11.00 [facility] Comment on above: Performed By: #### 4 [id number] #### [facility] [address] [place] [address] Lew Tim M.D. [id number] CBC panel Auto (Bld)on 03-24 Erythrocyte distribution width (RBC) [Entitic vol] 16.1 % High 11.6 - 14.8 % [facility] Hematocrit (Bld) [Volume fraction] 37.2 % 36.0 - 46.0 % [facility] Hemoglobin (Bld) [Mass/Vol] 11.7 g/dL Low 12.0 - 16.0 g/dL [facility] Interpretation and review of laboratory results Abnormal [facility] MCH (RBC) [Entitic mass] 30.5 pg 26.0 - 34.0 pg [facility] MCHC (RBC) [Mass/Vol] 31.5 g/dL 31.0 - 37.0 g/dL [facility] MCV (RBC) [Entitic vol] 97.1 fL 80.0 - 100.0 fL [facility] Nucleated RBC (Bld) [#/Vol] 0 10*3/uL [facility] Nucleated RBC/100 WBC (Bld) [Ratio] 0 % [facility] Platelet mean volume (Bld) [Entitic vol] 9.6 fL 9.4 - 12.4 fL [facility] Platelets (Bld) [#/Vol] 393 10*3/uL [facility] RBC (Bld) [#/Vol] 3.83 10*6/uL Low [facility] WBC (Bld) [#/Vol] 8.11 10*3/uL [facility] COMPREHENSIVE METABOLIC PANE Robert 03-24-2025 Albumin [Mass/Vol] 2.8 g/dL Low 3.2-5.2 [facility] Comment on above: Order Comment: Injur y/Trauma or Illness?:Illness/Other How long have you had these symptoms (acute/chronic)?:Unknown Reason for exam?:No ostomy output with advanced diet, evaluate bowel pattern History of cancer?:. Surgeries, chemotherapy, or radiation?:. Type of Exam?:Initial Additional signs and symptoms?:. Performed By: #### 4 9888 ####[facility] [address] [place] [address] Lew Tim M.D. [id number] ALP [Catalytic activity/Vol] 76 U/L Normal 40-150 [facility] Comment on above: Order Comment: Injur y/Trauma or Illness?:Illness/Other How long have you had these symptoms (acute/chronic)?:Unknown Reason for exam?:No ostomy output with advanced diet, evaluate bowel pattern History of cancer?:. Surgeries, chemotherapy, or radiation?:. Type of Exam?:Initial Additional signs and symptoms?:. Performed By: #### 4 6126 ####[facility] [address] [place], [place] [address] Lew Tim M.D. [id number] ALT [Catalytic activity/Vol] 9 U/L Normal 0-35 U/L [facility] Comment on above: Order Comment: Injur y/Trauma or Illness?:Illness/Other How long have you had these symptoms (acute/chronic)?:Unknown Reason for exam?:No ostomy output with advanced diet, evaluate bowel pattern History of cancer?:. Surgeries, chemotherapy, or radiation?:. Type of Exam?:Initial Additional signs and symptoms?:. Performed By: #### 4 6159 ####[facility] [address] [place] [address] Lew Tim M.D. [id number] Anion gap [Moles/Vol] 12 mmol/L Normal 10-20 [facility] Comment on above: Order Comment: Injur y/Trauma or Illness?:Illness/Other How long have you had these symptoms (acute/chronic)?:Unknown Reason for exam?:No ostomy output with advanced diet, evaluate bowel pattern History of cancer?:. Surgeries, chemotherapy, or radiation?:. Type of Exam?:Initial Additional signs and symptoms?:. Performed By: #### 4 6104 ####[facility] [address] [place], [place] [address] Lew Tim M.D. [id number] AST [Catalytic activity/Vol] 21 U/L Normal 0-35 U/L [facility] Comment on above: Order Comment: Injur y/Trauma or Illness?:Illness/Other How long have you had these symptoms (acute/chronic)?:Unknown Reason for exam?:No ostomy output with advanced diet, evaluate bowel pattern History of cancer?:. Surgeries, chemotherapy, or radiation?:. Type of Exam?:Initial Additional signs and symptoms?:. Result Comment: Slig htly Hemolyzed Performed By: #### 4 6131 ####[facility] [address] [place], [place] [address] Lew Tim M.D. [id number] Bilirubin [Mass/Vol] 0.8 mg/dL Normal 0.0-1.3 [facility] Comment on above: Order Comment: Injur y/Trauma or Illness?:Illness/Other How long have you had these symptoms (acute/chronic)?:Unknown Reason for exam?:No ostomy output with advanced diet, evaluate bowel pattern History of cancer?:. Surgeries, chemotherapy, or radiation?:. Type of Exam?:Initial Additional signs and symptoms?:. Performed By: #### 4 6126 ####[facility] [address] [place] [address] Lew Tim M.D. [id number] Calcium [Mass/Vol] 8.5 mg/dL Normal 8.4-10.2 [facility] Comment on above: Order Comment: Injur y/Trauma or Illness?:Illness/Other How long have you had these symptoms (acute/chronic)?:Unknown Reason for exam?:No ostomy output with advanced diet, evaluate bowel pattern History of cancer?:. Surgeries, chemotherapy, or radiation?:. Type of Exam?:Initial Additional signs and symptoms?:. Performed By: #### 4 6135 ####[facility] [address] [place] [address] Lew Tim M.D. [id number] Chloride [Moles/Vol] 101 mmol/L Normal 98-108 [facility] Comment on above: Order Comment: Injur y/Trauma or Illness?:Illness/Other How long have you had these symptoms (acute/chronic)?:Unknown Reason for exam?:No ostomy output with advanced diet, evaluate bowel pattern History of cancer?:. Surgeries, chemotherapy, or radiation?:. Type of Exam?:Initial Additional signs and symptoms?:. Performed By: #### 4 6178 ####[facility] [address] [place], [place] [address] Lew Tim M.D. [id number] Creatinine [Mass/Vol] 0.48 mg/dL Normal 0.40-1.10 [facility] Comment on above: Order Comment: Injur y/Trauma or Illness?:Illness/Other How long have you had these symptoms (acute/chronic)?:Unknown Reason for exam?:No ostomy output with advanced diet, evaluate bowel pattern History of cancer?:. Surgeries, chemotherapy, or radiation?:. Type of Exam?:Initial Additional signs and symptoms?:. Performed By: #### 4 6173 ####[facility] [address] [place] [address] Lew Tim M.D. [id number] EGFR 109 mL/min/1.73 m2 Normal >=60 [facility] Comment on above: Order Comment: Injur y/Trauma or Illness?:Illness/Other How long have you had these symptoms (acute/chronic)?:Unknown Reason for exam?:No ostomy output with advanced diet, evaluate bowel pattern History of cancer?:. Surgeries, chemotherapy, or radiation?:. Type of Exam?:Initial Additional signs and symptoms?:. Result Comment: Marce mated GFR was calculated using the 2020 CKD-EPI creatinine equation. Performed By: #### 4 6126 ####[facility] [address] [place] [address] Lew Tim M.D. [id number] Glucose [Mass/Vol] 110 mg/dL High 65-99 [facility] Comment on above: Order Comment: Injur y/Trauma or Illness?:Illness/Other How long have you had these symptoms (acute/chronic)?:Unknown Reason for exam?:No ostomy output with advanced diet, evaluate bowel pattern History of cancer?:. Surgeries, chemotherapy, or radiation?:. Type of Exam?:Initial Additional signs and symptoms?:. Performed By: #### 4 6180 ####[facility] [address] [place] [address] Lew Tim M.D. [id number] HCO3 (Bld) [Moles/Vol] 26 mmol/L Normal 21-32 [facility] Comment on above: Order Comment: Injur y/Trauma or Illness?:Illness/Other How long have you had these symptoms (acute/chronic)?:Unknown Reason for exam?:No ostomy output with advanced diet, evaluate bowel pattern History of cancer?:. Surgeries, chemotherapy, or radiation?:. Type of Exam?:Initial Additional signs and symptoms?:. Performed By: #### 4 6133 ####[facility] [address] [place], [place] [address] Lew Tim M.D. [id number] Potassium [Moles/Vol] 3.9 mmol/L Normal 3.5-5.1 [facility] Comment on above: Order Comment: Injur y/Trauma or Illness?:Illness/Other How long have you had these symptoms (acute/chronic)?:Unknown Reason for exam?:No ostomy output with advanced diet, evaluate bowel pattern History of cancer?:. Surgeries, chemotherapy, or radiation?:. Type of Exam?:Initial Additional signs and symptoms?:. Result Comment: Slig htly Hemolyzed Performed By: #### 4 6158 ####[facility] [address] [place] [address] Lew Tim M.D. [id number] Protein [Mass/Vol] 6.4 g/dL Normal 6.0-8.0 [facility] Comment on above: Order Comment: Injur y/Trauma or Illness?:Illness/Other How long have you had these symptoms (acute/chronic)?:Unknown Reason for exam?:No ostomy output with advanced diet, evaluate bowel pattern History of cancer?:. Surgeries, chemotherapy, or radiation?:. Type of Exam?:Initial Additional signs and symptoms?:. Performed By: #### 4 6189 ####[facility] [address] [place], [place] [address] Lew Tim M.D. [id number] Sodium [Moles/Vol] 135 mmol/L Normal 135-145 [facility] Comment on above: Order Comment: Injur y/Trauma or Illness?:Illness/Other How long have you had these symptoms (acute/chronic)?:Unknown Reason for exam?:No ostomy output with advanced diet, evaluate bowel pattern History of cancer?:. Surgeries, chemotherapy, or radiation?:. Type of Exam?:Initial Additional signs and symptoms?:. Performed By: #### 4 6126 ####[facility] [address] [place] [address] Lew Tim M.D. [id number] Urea nitrogen [Mass/Vol] 5 mg/dL Low 8-25 [facility] Comment on above: Order Comment: Injur y/Trauma or Illness?:Illness/Other How long have you had these symptoms (acute/chronic)?:Unknown Reason for exam?:No ostomy output with advanced diet, evaluate bowel pattern History of cancer?:. Surgeries, chemotherapy, or radiation?:. Type of Exam?:Initial Additional signs and symptoms?:. Performed By: #### 4 6126 ####[facility] [address] [place], [place] [address] Lew Tim M.D. [id number] Urea nitrogen/Creatinine [Mass ratio] 10.4 mg/mg Normal 10.0-20.0 [facility] Comment on above: Order Comment: Injur y/Trauma or Illness?:Illness/Other How long have you had these symptoms (acute/chronic)?:Unknown Reason for exam?:No ostomy output with advanced diet, evaluate bowel pattern History of cancer?:. Surgeries, chemotherapy, or radiation?:. Type of Exam?:Initial Additional signs and symptoms?:. Performed By: #### 4 6126 ####[facility] [address] [place] [address] Lew Tim M.D. [id number] Calcium, Ionizedon Calcium.ionized [Mass/Vol] 4.8 mg/dL 4.5 - 5.3 mg/dL [facility] Calcium.ionized [Mass/Vol]on 03-24-2025 Interpretation and review of laboratory results Normal [facility] Comprehensive metabolic 2000 panelOrdered By: Evangelina York on 03-24-2025 Albumin [Mass/Vol] 2.8 g/dL Low 3.2 - 5.2 g/dL [facility] [facility] ALP [Catalytic activity/Vol] 76 U/L 40 - 150 U/L [facility] ALT [Catalytic activity/Vol] 9 U/L 0 - 35 U/L [facility] Anion gap [Moles/Vol] 12 mmol/L 10 - 2 0 mmol/L [facility] AST [Catalytic activity/Vol] 21 U/L 0 - 35 U/L [facility] Bilirubin [Mass/Vol] 0.8 mg/dL 0.0 - 1 .3 mg/dL [facility] Calcium [Mass/Vol] 8.5 mg/dL 8.4 - 10. 2 mg/dL [facility] Chloride [Moles/Vol] 101 mmol/L 98 - 10 8 mmol/L [facility] Creatinine [Mass/Vol] 0.48 mg/dL 0.40 - 1.10 mg/dL [facility] GFR/1.73 sq M.predicted CKD-EPI (S/P/Bld) [Vol rate/Area] 109 - PINF [facility] Glucose [Mass/Vol] 110 mg/dL High 65 - 99 mg/dL [facility] HCO3 [Moles/Vol] 26 mmol/L 21 - 32 mmol/L [facility] Interpretation and review of laboratory results Abnormal [facility] Potassium [Moles/Vol] 3.9 mmol/L 3.5 - 5.1 mmol/L [facility] Protein [Mass/Vol] 6.4 g/dL 6.0 - 8.0 g/dL [facility] Sodium [Moles/Vol] 135 mmol/L 135 - 145 mmol/L [facility] Urea nitrogen [Mass/Vol] 5 mg/dL Low 8 - 25 mg/dL [facility] Urea nitrogen/Creatinine [Mass ratio] 10.4 mg/mg 10.0 - 20.0 [facility] Glucose (Bld) [Mass/Vol]on 0 03-24-2025 Glucose [Mass/Vol] 103 mg/dL High 65 - 99 mg/dL [facility] Interpretation and review of laboratory results Abnormal [facility] Glucose [Mass/Vol] 108 mg/dL High 65 - 99 mg/dL [facility] Interpretation and review of laboratory results Abnormal [facility] Glucose [Mass/Vol] 114 mg/dL High 65 - 99 mg/dL [facility] Interpretation and review of laboratory results Abnormal [facility] Glucose [Mass/Vol] 106 mg/dL High 65 - 99 mg/dL [facility] Interpretation and review of laboratory results Abnormal [facility] Glucose [Mass/Vol] 116 mg/dL High 65 - 99 mg/dL [facility] Interpretation and review of laboratory results Abnormal [facility] Glucose [Mass/Vol] 114 mg/dL High 65 - 99 mg/dL [facility] Interpretation and review of laboratory results Abnormal [facility] Glucose [Mass/Vol] 122 mg/dL High 65 - 99 mg/dL [facility] Interpretation and review of laboratory results Abnormal [facility] MAGNESIUM LEVELon 03-24-2025 Magnesium [Mass/Vol] 1.8 mg/dL Normal 1.6-2.4 [facility] Comment on above: Performed By: #### [id number] #### [facility] [address] [place] [address] 54527 Lew Tim M.D. [id number] Performed By: #### 4 [id number] ####[facility] [address] [place] [address] 68693 Lew Tim M.D. [id number] Magnesium Levelon 03-24-2025 Magnesium [Mass/Vol] 1.8 mg/dL 1.6 - 2 .4 mg/dL [facility] Magnesium [Mass/Vol] 1.8 mg/dL 1.6 - 2 .4 mg/dL [facility] Magnesium [Mass/Vol]on 03-24 Interpretation and review of laboratory results Normal [facility] No Panel Informationon 03-24 Interpretation and review of laboratory results Normal [facility] PHOSPHORUSon 03-24-2025 Phosphate [Mass/Vol] 2.7 mg/dL Normal 2.7-4.5 [facility] Comment on above: Performed By: #### [id number] #### [facility] [address] [place] [address] 77012 Lew Tim M.D. [id number] POC GLUCOSE - [facility] 025 Glucose [Mass/Vol] 103 mg/dL High 65-99 [facility] Comment on above: Performed By: #### 4 [id number] #### [facility] [address] [place] [address] 65807 Lew Tim M.D. [id number] Glucose [Mass/Vol] 108 mg/dL High 65-99 [facility] Comment on above: Performed By: #### 4 [id number] #### [facility] [address] [place], [place] [address] Lew Tim M.D. [id number] Glucose [Mass/Vol] 114 mg/dL High [address] Comment on above: Performed By: #### 4 [id number] #### [facility] [address] [place] [address] Lew Tim M.D. [id number] Glucose [Mass/Vol] 106 mg/dL High -[address] [place] [address] Comment on above: Performed By: #### 4 [id number] #### [facility] [address] [place] [address] Lew Tim M.D. [id number] Glucose [Mass/Vol] 116 mg/dL [address] Comment on above: Performed By: #### 4 [id number] #### [facility] [address] [place], [place] [address] Lew Tim M.D. [id number] Glucose [Mass/Vol] 114 mg/dL [address] Comment on above: Performed By: #### 4 [id number] #### [facility] [address] [place], [place] [address] Lew Tim M.D. [id number] Glucose [Mass/Vol] 122 mg/dL [address] Comment on above: Performed By: #### 4 [id number] #### [facility] [address] [place], [place] [address] Lew Tim M.D. [id number] POTASSIUM LEVELon 03-24-2025 Potassium [Moles/Vol] 4.2 mmol/L Normal 3.5-5.1 [facility] Comment on above: Result Comment: Slig htly Hemolyzed Performed By: #### 4 [id number] #### [facility] [address] [place] [address] 96928 Lew Tim M.D. [id number] PREALBUMINon 03-24-2025 Prealbumin [Mass/Vol] 8.1 mg/dL Low 20.0-40.0 [facility] Comment on above: Performed By: #### 4 6355 ####[facility] [address] [place] [address] 48293 Lew Tim M.D. [id number] Phosphoruson 03-24-2025 Phosphate [Mass/Vol] 2.7 mg/dL 2.7 - 4 .5 mg/dL [facility] Potassium LevelOrdered By: Piedad Lomax on 03-24-2025 Potassium [Moles/Vol] 4.2 mmol/L 3.5 - 5.1 mmol/L [facility] Potassium [Moles/Vol]Ordered By: Gerhard Lomax on 03-24-2025 Interpretation and review of laboratory results Normal [facility] Prealbuminon 03-24-2025 Prealbumin [Mass/Vol] 8.1 mg/dL Low 20.0 - 40.0 mg/dL [facility] Prealbumin [Mass/Vol]on Interpretation and review of laboratory results Abnormal [facility] TRIGLYCERIDESon 03-24-2025 Triglyceride [Mass/Vol] 137 mg/dL Normal 30-150 [facility] Comment on above: Result Comment: Corinna onal Cholesterol Education Program Guidelines: Triglyceride Normal: <150 mg/dL Borderline High: 150-199 mg/dL High: 200-499 mg/dL Very High: greater than or equal to 500 mg/dL Performed By: #### 4 [id number] #### [facility] [address] [place] [address] 61777 Lew Tim M.D. [id number] Triglyceride [Mass/Vol]on Interpretation and review of laboratory results Normal [facility] Triglycerideson 03-24-2025 Triglyceride [Mass/Vol] 137 mg/dL 30 - 150 mg/dL [facility] BASIC METABOLIC PANELon Anion gap [Moles/Vol] 12 mmol/L Normal 10-20 [facility] Comment on above: Order Comment: [facility] has implemented the eGFR calculation approach that does not have a coefficient for race that conforms to the NKF-ASN Task Force Recommendations. Performed By: #### 4 [id number] #### [facility] [address] [place] [address] 37212 Lew Tim M.D. [id number] Calcium [Mass/Vol] 8.6 mg/dL Normal 8.4-10.2 [facility] Comment on above: Order Comment: [facility] has implemented the eGFR calculation approach that does not have a coefficient for race that conforms to the NKF-ASN Task Force Recommendations. Performed By: #### 4 [id number] #### [facility] [address] [place] [address] 08069 Lew Tim M.D. [id number] Chloride [Moles/Vol] 100 mmol/L Normal 98-108 [facility] Comment on above: Order Comment: [facility] has implemented the eGFR calculation approach that does not have a coefficient for race that conforms to the NKF-ASN Task Force Recommendations. Performed By: #### 4 [id number] #### [facility] [address] [place] [address] 16075 Lew Tim M.D. [id number] Creatinine [Mass/Vol] 0.51 mg/dL Normal 0.40-1.10 [facility] Comment on above: Order Comment: [facility] has implemented the eGFR calculation approach that does not have a coefficient for race that conforms to the NKF-ASN Task Force Recommendations. Performed By: #### 4 [id number] #### [facility] [address] [place] [address] 38147 Lew Tim M.D. [id number] EGFR 107 mL/min/1.73 m2 Normal >=60 [facility] Comment on above: Order Comment: [facility] has implemented the eGFR calculation approach that does not have a coefficient for race that conforms to the NKF-ASN Task Force Recommendations. Result Comment: Marce mated GFR was calculated using the 2020 CKD-EPI creatinine equation. Performed By: #### 4 [id number] #### [facility] [address] [place] [address] 30086 Lew Tim M.D. [id number] Glucose [Mass/Vol] 99 mg/dL Normal 65-99 [facility] Comment on above: Order Comment: [facility] has implemented the eGFR calculation approach that does not have a coefficient for race that conforms to the NKF-ASN Task Force Recommendations. Performed By: #### 4 [id number] #### [facility] [address] [place] [address] 25667 Lew Tim M.D. [id number] HCO3 (Bld) [Moles/Vol] 27 mmol/L Normal 21-32 [facility] Comment on above: Order Comment: [facility] has implemented the eGFR calculation approach that does not have a coefficient for race that conforms to the NKF-ASN Task Force Recommendations. Performed By: #### 4 [id number] #### [facility] [address] [place] [address] 27338 Lew Tim M.D. [id number] Potassium [Moles/Vol] 3.6 mmol/L Normal 3.5-5.1 [facility] Comment on above: Order Comment: [facility] has implemented the eGFR calculation approach that does not have a coefficient for race that conforms to the NKF-ASN Task Force Recommendations. Performed By: #### 4 [id number] #### [facility] [address] [place] [address] 89041 Lew Tim M.D. [id number] Sodium [Moles/Vol] 135 mmol/L Normal 135-145 [facility] Comment on above: Order Comment: [facility] has implemented the eGFR calculation approach that does not have a coefficient for race that conforms to the NKF-ASN Task Force Recommendations. Performed By: #### 4 [id number] #### [facility] [address] [place] [address] 77158 Lew Tim M.D. [id number] Urea nitrogen [Mass/Vol] 3 mg/dL Low 8-25 [facility] Comment on above: Order Comment: [facility] has implemented the eGFR calculation approach that does not have a coefficient for race that conforms to the NKF-ASN Task Force Recommendations. Performed By: #### 4 [id number] #### [facility] [address] [place] [address] 42777 Lew Tim M.D. [id number] Urea nitrogen/Creatinine [Mass ratio] 5.9 mg/mg Low 10.0-20.0 [facility] Comment on above: Order Comment: [facility] has implemented the eGFR calculation approach that does not have a coefficient for race that conforms to the NKF-ASN Task Force Recommendations. Performed By: #### 4 [id number] #### [facility] [address] [place] [address] 81363 Lew Tim M.D. [id number] Basic metabolic 2000 panelon 03-23-2025 Anion gap [Moles/Vol] 12 mmol/L 10 - 2 0 mmol/L [facility] Calcium [Mass/Vol] 8.6 mg/dL 8.4 - 10. 2 mg/dL [facility] Chloride [Moles/Vol] 100 mmol/L 98 - 10 8 mmol/L [facility] Creatinine [Mass/Vol] 0.51 mg/dL 0.40 - 1.10 mg/dL [facility] GFR/1.73 sq M.predicted CKD-EPI (S/P/Bld) [Vol rate/Area] 107 - PINF [facility] Glucose [Mass/Vol] 99 mg/dL 65 - 99 mg/dL [facility] HCO3 [Moles/Vol] 27 mmol/L 21 - 32 mmol/L [facility] Interpretation and review of laboratory results Abnormal [facility] Potassium [Moles/Vol] 3.6 mmol/L 3.5 - 5.1 mmol/L [facility] Sodium [Moles/Vol] 135 mmol/L 135 - 145 mmol/L [facility] Urea nitrogen [Mass/Vol] 3 mg/dL Low 8 - 25 mg/dL [facility] Urea nitrogen/Creatinine [Mass ratio] 5.9 mg/mg Low 10.0 - 20.0 [facility] CBCon 03-23-2025 AUTO NRBC 0.0 % Normal [facility] Comment on above: Performed By: #### [id number] ####[facility] [address] [place], [place] [address] Lew Tim M.D. [id number] AUTO NRBC ABS COUNT 0.00 K/mcL Normal 0.00-0.00 [facility] Comment on above: Performed By: #### 4 [id number] ####[facility] [address] [place], [place] [address] Lew Tim M.D. [id number] Erythrocyte distribution width (RBC) [Ratio] 16.0 % High 11.6-14.8 [facility] Comment on above: Performed By: #### 4 [id number] ####[facility] [address] [place], [place] [address] Lew Tim M.D. [id number] Hematocrit (Bld) [Volume fraction] 39.6 % Normal 36.0-46.0 [facility] Comment on above: Performed By: #### 4 [id number] ####[facility] [address] [place], [place] [address] Lew Tim M.D. [id number] Hemoglobin (Bld) [Mass/Vol] 12.4 g/dL Normal 12.0-16.0 [facility] Comment on above: Performed By: #### 4 [id number] ####[facility] [address] [place], [place] [address] Lew Tim M.D. [id number] MCH (RBC) [Entitic mass] 30.4 pg Normal 26.0-34.0 [facility] Comment on above: Performed By: #### 4 [id number] ####[facility] [address] [place] [address] 09963 Lew Tim M.D. [id number] MCV (RBC) [Entitic vol] 97.1 fL Normal 80.0-100.0 [facility] Comment on above: Performed By: #### 4 [id number] ####[facility] [address] [place], [place] [address] Lew Tim M.D. [id number] MEAN CORPUSCULAR HEMOGLOBIN CONC 31.3 g/dL Normal 31.0-37.0 [facility] Comment on above: Performed By: #### 4 [id number] ####[facility] [address] [place], [place] [address] Lew Tim M.D. [id number] Platelet mean volume (Bld) [Entitic vol] 9.4 fL Normal 9.4-12.4 [facility] Comment on above: Performed By: #### 4 [id number] ####[facility] [address] [place] [address] 17291 Lew Tim M.D. [id number] Platelets (Bld) [#/Vol] 464 10*3/uL High 150-400 [facility] Comment on above: Performed By: #### 4 [id number] ####[facility] [address] [place], [place] [address] Lew Tim M.D. [id number] RBC (Bld) [#/Vol] 4.08 10*6/uL Normal 4.00-5.20 [facility] Comment on above: Performed By: #### 4 [id number] ####[facility] [address] [place] [address] 00952 Lew Tim M.D. [id number] WBC (Bld) [#/Vol] 9.65 10*3/uL Normal 4.50-11.00 [facility] Comment on above: Performed By: #### 4 [id number] ####[facility] [address] [place], [place] [address] Lew Tim M.D. [id number] CBC panel Auto (Bld)on 03-23 Erythrocyte distribution width (RBC) [Entitic vol] 16 % High 11.6 - 14.8 % [facility] Hematocrit (Bld) [Volume fraction] 39.6 % 36.0 - 46.0 % [facility] Hemoglobin (Bld) [Mass/Vol] 12.4 g/dL 12.0 - 16.0 g/dL [facility] Interpretation and review of laboratory results Abnormal [facility] MCH (RBC) [Entitic mass] 30.4 pg 26.0 - 34.0 pg [facility] MCHC (RBC) [Mass/Vol] 31.3 g/dL 31.0 - 37.0 g/dL [facility] MCV (RBC) [Entitic vol] 97.1 fL 80.0 - 100.0 fL [facility] Nucleated RBC (Bld) [#/Vol] 0 10*3/uL [facility] Nucleated RBC/100 WBC (Bld) [Ratio] 0 % [facility] Platelet mean volume (Bld) [Entitic vol] 9.4 fL 9.4 - 12.4 fL [facility] Platelets (Bld) [#/Vol] 464 10*3/uL High [facility] RBC (Bld) [#/Vol] 4.08 10*6/uL [facility] WBC (Bld) [#/Vol] 9.65 10*3/uL [facility] CONSULTon 03-23-2025 CONSULT [facility] INTERVENTIONAL RADIOLOGY CONSULT NOTE The patient's chart to include history and physical, pertinent allergies, code status, laboratory and available pertinent imaging were reviewed. * Diverticulitis of colon with perforation Assessment & Plan 59 yo female who [facility] with worsening abdominal pain for a week. OSH CTAP: acute sigmoid diverticulitis with kay perforation and pelvic phlegmon, measuring 9.5 x 3.5cm S/p ex-lap with diverting sigmoid colostomy and abdominal washout on 03/16 03/22 CT A/p-Postoperative fluid collections in the pelvis which may represent developing abscesses IR consulted by surgery for pelvic drain Images reviewed with Dr Aggarwal. Due to location of fluid collection, IR cannot place drain Code Status: Full Code Allergies: Patient has no known allergies. Laboratory: Laboratory 03/23/25 7:27 AM Radiology 03/23/25 7:27 AM Medications 03/23/25 7:27 AM Transcriptions 03/23/25 7:27 AM Lab Results Component Value Date BUN 3 (L) 03/23/2025 CREATININE 0.51 03/23/2025 EGFR 107 03/23/2025 BCR 5.9 (L) 03/23/2025 Lab Results Component Value Date PROTIME 14.2 03/16/2025 INR 1.1 03/16/2025 Lab Results Component Value Date WBC 9.65 03/23/2025 RBC 4.08 03/23/2025 HGB 12.4 03/23/2025 HCT 39.6 03/23/2025 PLT 464 (H) 03/23/2025 Pertinent image (if applicable): VIR Tish-procedure lab value guideline: Table 1. LOW Bleeding Risk Laboratory Guidelines Low Bleeding Risk Procedures Target Laboratory Values3 Bone Marrow Biopsy [Platelet Count - N/A] Catheter exchanges (gastrostomy, biliary, nephrostomy, abscess, including gastrostomy/gastrojej unostomy conversions) CVC tunneled >/= 8 Fr* Diagnostic venography and select venous interventions: pelvis and extremities Dialysis shunt interventions IVC filter placement and removal Non-tunneled chest tube placement for pleural effusion Non-tunneled venous access and removal (including PICC placement) and Tunneled venous access Paracentesis Peripheral nerve blocks, joint, and musculoskeletal injections Sacroiliac joint injection and sacral lateral branch blocks Superficial abscess drainage or biopsy (palpable lesion, lymph node, soft tissue, breast, thyroid) Thoracentesis Trans jugular liver biopsy Trigger point injections including piriformis Tunneled drainage catheter placement* PT/INR < 3.0 Platelets > 20,000/mcL (Consider transfusing platelets if <20,000/mcL) If patient with Chronic Liver Disease (based on expert opinion): PT/INR < 3.0 (Consider Vitamin K infusion if INR >3.0) Platelets > 20,000/mcL (Transfuse platelets if <20,000/mcL in patients with a large spleen) Fibrinogen > 100mg/dL (Consider cryoprecipitate if <100mg/dL) *If on Direct Oral Anticoagulant (DOAC), follow HIGH Bleeding Risk recommendations in Table 2 and Table 3 Table 2. HIGH Bleeding Risk Laboratory Guidelines: HIGH Bleeding Risk Procedures Target Laboratory Values3 Ablations: solid organs, bone, soft tissue, lung Arterial diagnostic interventions: aortic, pelvic, mesenteric, peripheral Biliary interventions (including cholecystostomy tube placement) Catheter directed thrombolysis/thrombec duran- DVT, PE, portal vein (Highly case dependent) Deep abscess drainage (e.g., lung parenchyma, abdominal, pelvic, retroperitoneal) Deep non organ biopsies (e.g., spine, soft tissue in intra-abdominal, retroperitoneal, pelvic compartments) Gastrostomy/gastrojej unostomy placement IVC filter removal complex Lumbar puncture Lymphangiography Portal vein interventions Solid organ biopsies Spine procedures with risk of spinal or epidural hematoma (e.g., kyphoplasty, vertebroplasty, epidural injections, facet blocks) Trans jugular intrahepatic portosystemic shunt Port placement/removal (Buried) Urinary tract interventions (including nephrostomy tube placement, ureteral dilation, stone removal) Venous interventions: intrathoracic and ROTARY KILN OPERATOR intervention PT/INR < 1.8 (if arterial access, femoral: INR < 1.8, radial: INR < 2.2) Platelets > 50,000/mcL (Consider transfusing platelets if <50,000/mcL) If patient with Chronic Liver Disease (based on expert opinion): PT/INR < 2.5 (Give Vitamin K 10mg infusion if INR >2.5) Platelets > 30,000/mcL (Transfuse platelets if <30,000/mcL in patients with a large spleen) Fibrinogen > 100mg/dL (Consider cryoprecipitate if <100mg/dL) VIR Tish-procedure anticoagulant/antipla telet guideline (pending P&T review 10/2020): Medication LOW Bleeding Risk^ HIGH Bleeding Risk^ Reinitiation Abciximab (ReoPro) Hold 24 hrs before procedure Hold 24 hrs before procedure Patient undergoing PCI or within immediate periprocedural period from cardiac intervention; use multidisciplinary, shared decision-making Apixaban (Eliquis) Do not hold CrCl > 50mL/min: Hold 4 doses CrCl < 30-50mL/min: Hold 6 doses 24 hrs As (more content not included)... Normal [facility] MAGNESIUM LEVELon 03-23-2025 Magnesium [Mass/Vol] 2.2 mg/dL Normal 1.6-2.4 [facility] Comment on above: Performed By: #### 4 [id number] #### [facility] [address] [facility] [address] [id number] [facility] MR CARDIAC (FIELD PLACEMENT DIRECTOR AKANKSHA Fox) W VELOCITY FLOWon 03-23-2025 MR CARDIAC (FIELD PLACEMENT DIRECTOR MELINA) W VELOCITY FLOW [facility] CMR Report Name: JOSE LIND : Scan Date: Electronically signed by Eric Vazquez 19:23:23 VITALS HEIGHT: 70 in (178 cm) WEIGHT: 176 lbs (80 kgs) BSA: 1.98 m 2 BASELINE HR: 76 BPM FINAL IMPRESSION - Findings are consistent with a nonischemic cardiomyopathy - No evidence of an infiltrative process, prior infarct or active inflammation/edema SUMMARY 59 yo F with new HFrEF, pAF. Cardiac MRI performed at [facility]. 1. Normal left ventricular chamber size with normal wall thickness. Global hypokinesis. The calculated LV EF is 46%. No evidence of myocardial edema/inflammation on T2 mapping. No evidence of myocardial iron overload with T2 star imaging. Late gadolinium imaging demonstrates patchy mid myocardial enhancement in the basal septum and mid inferior RV insertion site. No evidence of infarct or myocardial infiltrate. [place] myocardial T1 and ECV are within normal limits. 2. Normal right ventricular chamber size and systolic function. The calculated RV EF is 56%. 3. Mild left atrial enlargement. 4. There is no hemodynamically significant valve disease. The peak aortic velocity is 1.9 m/sec by phase encoded cine imaging. 5. Normal appearance of the pericardium. There is no pericardial effusion. Refer to the separate radiology report for extra-cardiac findings. LEFT VENTRICLE: Quantitative LVEF 46 %. LV cavity size is normal. LV systolic function is mildly decreased globally. RIGHT VENTRICLE: Quantitative RVEF 56 %. RV cavity size is normal. RV systolic function is normal. LV/RV SEPTUM: The ventricular septum is intact. LA/RA SEPTUM: The atrial septum is intact. LEFT ATRIUM: LA is mildly enlarged. RIGHT ATRIUM: RA cavity size is normal. PERICARDIUM: Pericardium is normal. There is no pericardial effusion. AORTIC VALVE: Peak aortic valve velocity 1.9 m/sec. Aortic valve leaflets are normal. MITRAL VALVE: Mitral valve leaflets are normal. TRICUSPID VALVE: Tricuspid valve leaflets are normal. AORTIC ROOT: The aortic root is normal. CORE EXAM MEASUREMENTS VOLUMETRIC ANALYSIS ---- . . LV Reference RV Reference +-----+ +-- ----+ +---- --+ + EDV ml 159 (82-162) 126 (75-160) ml/m 2 80 (53-87) 64 (49-86) ESV ml 86 (20-57) 55 (11-63) ml/m 2 44 (13-31) 28 (8-34) CO L/min 5.55 5.40 L/min/m 2 2.81 2.73 SV ml 73 (56-111) 71 (55-106) ml/m 2 37 (36-60) 36 (34-58) EF % 46 (60-78) 56 (57-81) '-----+ +-- ----+ +---- --+ ' LV DIMENSIONS ---- WALL THICKNESS - ANTEROSEPTAL: 0.6 cm WALL THICKNESS - INFEROLATERAL: 0.7 cm LV KATIANA: 5.0 cm LV ESD: 3.5 cm LA DIMENSIONS (LV SYSTOLE) ---- DIAMETER: 4.5 cm AREA - 2 CHAMBER: 23 cm 2 LENGTH - 2 CHAMBER: 5.3 cm AREA - 4 CHAMBER: 21 cm 2 LENGTH - 4 CHAMBER: 4.8 cm VOLUME: 86 ml VOLUME NORMALIZED: 43.3 ml/m 2 RA DIMENSIONS (RV SYSTOLE) ---- DIAMETER: 3.0 cm AREA - 4 CHAMBER: 19 cm 2 LENGTH - 4 CHAMBER: 5.4 cm AORTIC ROOT DIMENSIONS ---- SINUS OF VALSALVA: 3.3 cm EXTRACELLULAR VOLUME MEASUREMENT ---- PRE-CONTRAST T1 MYOCARDIUM: 1082 msec PRE-CONTRAST T1 LV CAVITY: 1780 msec POST-CONTRAST T1 MYOCARDIUM: 468 msec POST-CONTRAST T1 LV CAVITY: 338 msec HEMATOCRIT: 39.6 % HEMATOCRIT DATE: ECV: 30.6 % IRON QUANTIFICATION ---- MYOCARDIAL T2*: 39 msec 17 SEGMENT . . Segments Wall Motion Hyperenhancement Stress Perfusion Interpretation + + +---- +------ + + Base Anterior Mild/Mod Hypo None Base Anteroseptal Mild/Mod Hypo 1-25% Base Inferoseptal Mild/Mod Hypo 1-25% Base Inferior Mild/Mod Hypo None Base Inferolateral Mild/Mod Hypo None Base Anterolateral Mild/Mod Hypo None Mid (more content not included)... Normal [facility] Comment on above: Order Comment: Injur y/Trauma or Illness?:Illness/Other How long have you had these symptoms (acute/chronic)?:Unknown Reason for exam?:Heart failure, known or suspected, initial workup Type of Exam?:Ongoing Additional signs and symptoms?:n/a MR CARDIAC MORPHOLOGY WITH A ND WITHOUT CONTRAST WITH VELOCITY FLOWon 03-23-2025 MR CARDIAC MORPHOLOGY WITH AND WITHOUT CONTRAST WITH VELOCITY FLOW EXAMINATION: SUPPLEMENTAL MR CARDIAC MORPHOLOGY WITH AND WITHOUT CONTRAST WITH VELOCITY FLOW HISTORY: ORDERING SYSTEM PROVIDED HISTORY: Heart failure, known or suspected, initial workup, TECHNOLOGIST PROVIDED HISTORY: Illness/Other Reason for exam: Heart failure, known or suspected, initial workup Encounter Type: Initial Additional signs and symptoms: n/a ORDERING SYSTEM PROVIDED DIAGNOSIS CODES: K57.20 Diverticulitis of colon with perforation K65.1 Intra-abdominal abscess (HCC) D72.829 Leukocytosis, unspecified type COMPARISON: CT scan of the abdomen and pelvis, 03/22/2022. TECHNIQUE: Multiaxial multisequence imaging performed without and with the intravenous administration of 34 mL of Dotarem. FINDINGS: Ectasia of the ascending aorta measuring 4.1 cm in largest diameter. Small bilateral pleural effusions and bibasilar atelectasis, left greater than right. Lung parenchymal details are limited by MRI assessment. In the medial segment left hepatic lobe is a low T1 high T2 signal lesion measuring 3.1 x 3.1 cm (image 23, series 4). On CT comparison this hepatic lesion has a fluid Hounsfield unit measurement of a hepatic cyst. The gallbladder is distended measuring 5.1 cm as seen on comparison CT (image 15, series 5). Visualized upper abdomen is otherwise unremarkable. Enteric tube is seen descending into the stomach with the tip not clearly visualized. IMPRESSION: 1. All cardiac related MRI findings will be dictated separately by Cardiology. 2. Ectasia of the ascending aorta measuring 4.1 cm in largest diameter. 3. Small bilateral pleural effusions and bibasilar atelectasis, left greater than right. Some subtle underlying pneumonitis would be difficult to exclude. Note that the lung parenchymal details are limited by MRI assessment. 4. Cyst in the lateral segment left hepatic lobe. 5. Visualized gallbladder remains distended. If this is of further clinical concern correlation with right upper quadrant ultrasound recommended. 6. Enteric tube seen descending into the stomach with tip is not clearly visualized. [facility]/ Workstation ID: [id number] Dictated by: SIMNOE MANZANARES on SunMar 23, 2025 7:30:32 PM EDT Transcribed by: JENNIFER HERNDON on SunMar 23, 2025 7:34:03 PM EDT Finalized by: SIMONE MANZANARES on SunMar 23, 2025 7:41:31 PM EDT Normal [facility] Comment on above: Order Comment: Injur y/Trauma or Illness?:Illness/OtherHow long have you had these symptoms (acute/chronic)?:UnknownReason for exam?:Heart failure, known or suspected, initial workupType of Exam?:InitialAdditional signs and symptoms?:n/a MR Cardiac (Proctologist Akanksha fox) w/Velocity Flowon 03-23-2025 [employer] CV [facility] MR Cardiac (Proctologist Akanksha fox) w/Velocity FlowOrdered By: Eric Vazquez on 03-23-2025 [facility] Work Phone: MR Heart WO and W contrast I Von 03-23-2025 [employer] RIS [facility] MR Heart WO and W contrast I VOrdered By: Simone Manzanares on 03-23-2025 [facility] Work Phone: Magnesium Levelon 03-23-2025 Magnesium [Mass/Vol] 2.2 mg/dL 1.6 - 2 .4 mg/dL [facility] Magnesium [Mass/Vol]on 03-23 Interpretation and review of laboratory results Normal [facility] No Panel Informationon 03-23 Radiology Study observation (narrative) [facility] PHOSPHORUSon 03-23-2025 Phosphate [Mass/Vol] 3.6 mg/dL Normal 2.7-4.5 [facility] Comment on above: Performed By: #### 4 [id number] ####[facility] [address] [place] [address] Lew Tim M.D. [id number] Phosphate [Mass/Vol]on 03-23 Interpretation and review of laboratory results Normal [facility] Phosphoruson 03-23-2025 Phosphate [Mass/Vol] 3.6 mg/dL 2.7 - 4 .5 mg/dL [facility] BASIC METABOLIC PANELon Anion gap [Moles/Vol] 11 mmol/L Normal 10-20 [facility] Comment on above: Order Comment: Injur y/Trauma or Illness?:Illness/Other How long have you had these symptoms (acute/chronic)?:Unknown Reason for exam?:No ostomy output with advanced diet, evaluate bowel pattern History of cancer?:. Surgeries, chemotherapy, or radiation?:. Type of Exam?:Initial Additional signs and symptoms?:. Performed By: #### 4 6193 ####[facility] [address] [place] [address]30 Lew Tim M.D. [id number] Calcium [Mass/Vol] 8.1 mg/dL Low 8.4-10.2 [facility] Comment on above: Order Comment: Injur y/Trauma or Illness?:Illness/Other How long have you had these symptoms (acute/chronic)?:Unknown Reason for exam?:No ostomy output with advanced diet, evaluate bowel pattern History of cancer?:. Surgeries, chemotherapy, or radiation?:. Type of Exam?:Initial Additional signs and symptoms?:. Performed By: #### 4 6101 ####[facility] [address] [place], [place] [address] Lew Tim M.D. [id number] Chloride [Moles/Vol] 101 mmol/L Normal 98-108 [facility] Comment on above: Order Comment: Injur y/Trauma or Illness?:Illness/Other How long have you had these symptoms (acute/chronic)?:Unknown Reason for exam?:No ostomy output with advanced diet, evaluate bowel pattern History of cancer?:. Surgeries, chemotherapy, or radiation?:. Type of Exam?:Initial Additional signs and symptoms?:. Performed By: #### 4 6102 ####[facility] [address] [place], [place] [address] Lew Tim M.D. [id number] Creatinine [Mass/Vol] 0.47 mg/dL Normal 0.40-1.10 [facility] Comment on above: Order Comment: Injur y/Trauma or Illness?:Illness/Other How long have you had these symptoms (acute/chronic)?:Unknown Reason for exam?:No ostomy output with advanced diet, evaluate bowel pattern History of cancer?:. Surgeries, chemotherapy, or radiation?:. Type of Exam?:Initial Additional signs and symptoms?:. Performed By: #### 4 6110 ####[facility] [address] [place], [place] [address] Lew Tim M.D. [id number] EGFR 109 mL/min/1.73 m2 Normal >=60 [facility] Comment on above: Order Comment: Injur y/Trauma or Illness?:Illness/Other How long have you had these symptoms (acute/chronic)?:Unknown Reason for exam?:No ostomy output with advanced diet, evaluate bowel pattern History of cancer?:. Surgeries, chemotherapy, or radiation?:. Type of Exam?:Initial Additional signs and symptoms?:. Result Comment: Marce mated GFR was calculated using the 2020 CKD-EPI creatinine equation. Performed By: #### 4 6197 ####[facility] [address] [place] [address] 83573 Lew Tim M.D. [id number] Glucose [Mass/Vol] 103 mg/dL High 65-99 [facility] Comment on above: Order Comment: Injur y/Trauma or Illness?:Illness/Other How long have you had these symptoms (acute/chronic)?:Unknown Reason for exam?:No ostomy output with advanced diet, evaluate bowel pattern History of cancer?:. Surgeries, chemotherapy, or radiation?:. Type of Exam?:Initial Additional signs and symptoms?:. Performed By: #### 4 6124 ####[facility] [address] [place], [place] [address] Lew Tim M.D. [id number] HCO3 (Bld) [Moles/Vol] 26 mmol/L Normal 21-32 [facility] Comment on above: Order Comment: Injur y/Trauma or Illness?:Illness/Other How long have you had these symptoms (acute/chronic)?:Unknown Reason for exam?:No ostomy output with advanced diet, evaluate bowel pattern History of cancer?:. Surgeries, chemotherapy, or radiation?:. Type of Exam?:Initial Additional signs and symptoms?:. Performed By: #### 4 6132 ####[facility] [address] [place], [place] [address] Lew Tim M.D. [id number] Potassium [Moles/Vol] 3.4 mmol/L Low 3.5-5.1 [facility] Comment on above: Order Comment: Injur y/Trauma or Illness?:Illness/Other How long have you had these symptoms (acute/chronic)?:Unknown Reason for exam?:No ostomy output with advanced diet, evaluate bowel pattern History of cancer?:. Surgeries, chemotherapy, or radiation?:. Type of Exam?:Initial Additional signs and symptoms?:. Performed By: #### 4 6145 ####[facility] [address] [place], [place] [address] Lew Tim M.D. [id number] Sodium [Moles/Vol] 135 mmol/L Normal 135-145 [facility] Comment on above: Order Comment: Injur y/Trauma or Illness?:Illness/Other How long have you had these symptoms (acute/chronic)?:Unknown Reason for exam?:No ostomy output with advanced diet, evaluate bowel pattern History of cancer?:. Surgeries, chemotherapy, or radiation?:. Type of Exam?:Initial Additional signs and symptoms?:. Performed By: #### 4 6183 ####[facility] [address] [place], [place] [address] Lew Tim M.D. [id number] Urea nitrogen [Mass/Vol] 3 mg/dL Low 8-25 [facility] Comment on above: Order Comment: Injur y/Trauma or Illness?:Illness/Other How long have you had these symptoms (acute/chronic)?:Unknown Reason for exam?:No ostomy output with advanced diet, evaluate bowel pattern History of cancer?:. Surgeries, chemotherapy, or radiation?:. Type of Exam?:Initial Additional signs and symptoms?:. Performed By: #### 4 6154 ####[facility] [address] [place], [place] [address] Lew Tim M.D. [id number] Urea nitrogen/Creatinine [Mass ratio] 6.4 mg/mg Low 10.0-20.0 [facility] Comment on above: Order Comment: Injur y/Trauma or Illness?:Illness/Other How long have you had these symptoms (acute/chronic)?:Unknown Reason for exam?:No ostomy output with advanced diet, evaluate bowel pattern History of cancer?:. Surgeries, chemotherapy, or radiation?:. Type of Exam?:Initial Additional signs and symptoms?:. Performed By: #### 4 6161 ####[facility] [address] [place] [address] 22626 Lew Tim M.D. [id number] Basic metabolic 2000 panelon 03-22-2025 Anion gap [Moles/Vol] 11 mmol/L 10 - 2 0 mmol/L [facility] Calcium [Mass/Vol] 8.1 mg/dL Low 8.4 - 10. 2 mg/dL [facility] Chloride [Moles/Vol] 101 mmol/L 98 - 10 8 mmol/L [facility] Creatinine [Mass/Vol] 0.47 mg/dL 0.40 - 1.10 mg/dL [facility] GFR/1.73 sq M.predicted CKD-EPI (S/P/Bld) [Vol rate/Area] 109 - PINF [facility] Glucose [Mass/Vol] 103 mg/dL High 65 - 99 mg/dL [facility] HCO3 [Moles/Vol] 26 mmol/L 21 - 32 mmol/L [facility] Interpretation and review of laboratory results Abnormal [facility] Potassium [Moles/Vol] 3.4 mmol/L Low 3.5 - 5.1 mmol/L [facility] Sodium [Moles/Vol] 135 mmol/L 135 - 145 mmol/L [facility] Urea nitrogen [Mass/Vol] 3 mg/dL Low 8 - 25 mg/dL [facility] Urea nitrogen/Creatinine [Mass ratio] 6.4 mg/mg Low 10.0 - 20.0 [facility] CBCon 03-22-2025 AUTO NRBC 0.0 % Normal [facility] Comment on above: Performed By: #### 4 [id number] ####[facility] [address] [place], [place] [address] Lew Tim M.D. [id number] AUTO NRBC ABS COUNT 0.00 K/mcL Normal 0.00-0.00 [facility] Comment on above: Performed By: #### 4 [id number] ####[facility] [address] [place], [place] [address] Lew Tim M.D. [id number] Erythrocyte distribution width (RBC) [Ratio] 16.0 % High 11.6-14.8 [facility] Comment on above: Performed By: #### 4 [id number] ####[facility] [address] [place] [address] 15424 Lew Tim M.D. [id number] Hematocrit (Bld) [Volume fraction] 34.1 % Low 36.0-46.0 [facility] Comment on above: Performed By: #### 4 [id number] ####[facility] [address] [place], [place] [address] Lew Tim M.D. [id number] Hemoglobin (Bld) [Mass/Vol] 11.3 g/dL Low 12.0-16.0 [facility] Comment on above: Performed By: #### 4 [id number] ####[facility] [address] [place] [address] Lew Tim M.D. [id number] MCH (RBC) [Entitic mass] 31.3 pg Normal 26.0-34.0 [facility] Comment on above: Performed By: #### 4 [id number] ####[facility] [address] [place] [address] Lew Tim M.D. [id number] MCV (RBC) [Entitic vol] 94.5 fL Normal 80.0-100.0 [facility] Comment on above: Performed By: #### 4 [id number] ####[facility] [address] [place], [place] [address] Lew Tim M.D. [id number] MEAN CORPUSCULAR HEMOGLOBIN CONC 33.1 g/dL Normal 31.0-37.0 [facility] Comment on above: Performed By: #### 4 [id number] ####[facility] [address] [place], [place] [address] Lew Tim M.D. [id number] Platelet mean volume (Bld) [Entitic vol] 9.5 fL Normal 9.4-12.4 [facility] Comment on above: Performed By: #### 4 [id number] ####[facility] [address] [place], [place] [address] Lew Tim M.D. [id number] Platelets (Bld) [#/Vol] 415 10*3/uL High 150-400 [facility] Comment on above: Performed By: #### 4 [id number] ####[facility] [address] [place] [address] 40328 Lew Tim M.D. [id number] RBC (Bld) [#/Vol] 3.61 10*6/uL Low 4.00-5.20 [facility] Comment on above: Performed By: #### 4 [id number] ####[facility] [address] [place] [address] 08228 Lew Tim M.D. [id number] WBC (Bld) [#/Vol] 10.01 10*3/uL Normal 4.50-11.00 [facility] Comment on above: Performed By: #### 4 [id number] ####[facility] [address] [place] [address] 51158 Lew Tim M.D. [id number] CBC panel Auto (Bld)on 03-22 Erythrocyte distribution width (RBC) [Entitic vol] 16 % High 11.6 - 14.8 % [facility] Hematocrit (Bld) [Volume fraction] 34.1 % Low 36.0 - 46.0 % [facility] Hemoglobin (Bld) [Mass/Vol] 11.3 g/dL Low 12.0 - 16.0 g/dL [facility] Interpretation and review of laboratory results Abnormal [facility] MCH (RBC) [Entitic mass] 31.3 pg 26.0 - 34.0 pg [facility] MCHC (RBC) [Mass/Vol] 33.1 g/dL 31.0 - 37.0 g/dL [facility] MCV (RBC) [Entitic vol] 94.5 fL 80.0 - 100.0 fL [facility] Nucleated RBC (Bld) [#/Vol] 0 10*3/uL [facility] Nucleated RBC/100 WBC (Bld) [Ratio] 0 % [facility] Platelet mean volume (Bld) [Entitic vol] 9.5 fL 9.4 - 12.4 fL [facility] Platelets (Bld) [#/Vol] 415 10*3/uL High [facility] RBC (Bld) [#/Vol] 3.61 10*6/uL Low [facility] WBC (Bld) [#/Vol] 10.01 10*3/uL [facility] CT ABDOMEN PELVIS WITH CONTR Kaylee 03-22-2025 CT ABDOMEN PELVIS WITH CONTRAST EXAMINATION: CT ABDOMEN PELVIS WITH CONTRAST HISTORY: ORDERING SYSTEM PROVIDED HISTORY: eval for SBO, PO contrast in NG please, TECHNOLOGIST PROVIDED HISTORY: Illness/Other Reason for exam: eval for SBO, PO contrast in NG please Encounter Type: Initial Additional signs and symptoms: eval for SBO, PO contrast in NG please ORDERING SYSTEM PROVIDED DIAGNOSIS CODES: K57.20 Diverticulitis of colon with perforation K65.1 Intra-abdominal abscess (HCC) D72.829 Leukocytosis, unspecified type COMPARISON: 03/16/2025 TECHNIQUE: CT examination of the abdomen and pelvis following the administration of intravenous contrast. Coronal and sagittal reformations were performed. Dose reduction techniques were achieved by using automated exposure control and/or adjustment of mA and/or kV according to patient size and/or use of iterative reconstruction technique. CONTRAST: IOPAMIDOL 76 % ORAL - , IOPAMIDOL 370 MG IODINE/ML (76 %) INTRAVENOUS SOLUTION - 75 mL, FINDINGS: CT SCAN OF THE ABDOMEN: Small pleural effusions and basilar atelectasis. Fatty liver with a cyst. Nasogastric tube in the stomach with mild gastritis. There is contrast in the small bowel and there is dilated loops of mid jejunum with air-fluid levels in bowel approximating 3.5 cm. There is gradual decrease in bowel diameter distally without a discrete transition zone in the findings favor an ileus rather than a low-grade obstruction. There is gas and stool in the colon. Spleen, pancreas, adrenal glands and kidneys are normal. 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 There are fluid collections in the pelvis which may be postoperative or developing abscesses with collections to the right of midline 5.5 cm x 3.5 cm in the pelvic cul-de-sac rightward and posteriorly 3.6 cm x 4.0 cm post fluid surrounding the uterine fundus. There is a fibroid present. There is thickening of the sigmoid colon consistent with residual diverticulitis. Presacral edema and subcutaneous edema. Distal ureters and bladder are normal. Degenerative changes of the spine. IMPRESSION: 1. 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 2. Postoperative fluid collections in the pelvis which may represent developing abscesses. 3. There is an ileus favored over a low-grade partial small bowel obstruction without a discrete transition point. 4. Fatty liver with a cyst. 5. Pleural effusions basilar atelectasis. [place] Workstation ID: [id number] Dictated by: ARGENIS PEREZ on SunMar 22, 2025 6:40:54 PM EDT Transcribed by: JENNIFER HERNDON on SunMar 22, 2025 7:05:55 PM EDT Finalized by: ARGENIS PEREZ on SunMar 22, 2025 7:55:15 PM EDT Normal [facility] Comment on above: Order Comment: Injur y/Trauma or Illness?:Illness/OtherHow long have you had these symptoms (acute/chronic)?:AcuteReason for exam?:eval for SBO, PO contrast in NG pleaseType of Exam?:InitialAdditional signs and symptoms?:eval for SBO, PO contrast in NG please CT Abdomen and Pelvis W cont rast Yary 03-22-2025 GE RIS GE RIS [facility] Radiology Study observation (narrative) [place] Abdomen and Pelvis W cont rast IVOrdered By: Argenis Perez on 03-22-2025 [facility] Work Phone: MAGNESIUM LEVELon 03-22-2025 Magnesium [Mass/Vol] 1.8 mg/dL Normal 1.6-2.4 [facility] Comment on above: Performed By: #### 4 6109 ####[facility] [address] [place] [address] Lew Tim M.D. [id number] Magnesium Levelon 03-22-2025 Magnesium [Mass/Vol] 1.8 mg/dL 1.6 - 2 .4 mg/dL [facility] Magnesium [Mass/Vol]on 03-22 Interpretation and review of laboratory results Normal [facility] No Panel Informationon 03-22 [facility] BASIC METABOLIC PANELon 05- Anion gap [Moles/Vol] 16 mmol/L Normal 10-20 [facility] Comment on above: Order Comment: [facility] has implemented the eGFR calculation approach that does not have a coefficient for race that conforms to the NKF-ASN Task Force Recommendations. Performed By: #### 4 [id number] #### [facility] [address] [place] [address] 95[address] Lew Tim M.D. [id number] Calcium [Mass/Vol] 8.5 mg/dL Normal 8.4-10.2 [facility] Comment on above: Order Comment: [facility] has implemented the eGFR calculation approach that does not have a coefficient for race that conforms to the NKF-ASN Task Force Recommendations. Performed By: #### 4 [id number] #### [facility] [address] [place] [address] 17899 Lew Tim M.D. [id number] Chloride [Moles/Vol] 100 mmol/L Normal 98-108 [facility] Comment on above: Order Comment: [facility] has implemented the eGFR calculation approach that does not have a coefficient for race that conforms to the NKF-ASN Task Force Recommendations. Performed By: #### 4 [id number] #### [facility] [address] [place] [address] 97119 Lew Tim M.D. [id number] Creatinine [Mass/Vol] 0.43 mg/dL Normal 0.40-1.10 [facility] Comment on above: Order Comment: [facility] has implemented the eGFR calculation approach that does not have a coefficient for race that conforms to the NKF-ASN Task Force Recommendations. Performed By: #### 4 [id number] #### [facility] [address] [place] [address]2540 Lew Tim M.D. [id number] EGFR 112 mL/min/1.73 m2 Normal >=60 [facility] Comment on above: Order Comment: [facility] has implemented the eGFR calculation approach that does not have a coefficient for race that conforms to the NKF-ASN Task Force Recommendations. Result Comment: Marce mated GFR was calculated using the 2020 CKD-EPI creatinine equation. Performed By: #### 4 [id number] #### [facility] [address] [place] [address] 56149 Lew Tim M.D. [id number] Glucose [Mass/Vol] 112 mg/dL High 65-99 [facility] Comment on above: Order Comment: [facility] has implemented the eGFR calculation approach that does not have a coefficient for race that conforms to the NKF-ASN Task Force Recommendations. Performed By: #### 4 [id number] #### [facility] [address] [place] [address] Lew Tim M.D. [id number] HCO3 (Bld) [Moles/Vol] 25 mmol/L Normal 21-32 [facility] Comment on above: Order Comment: [facility] has implemented the eGFR calculation approach that does not have a coefficient for race that conforms to the NKF-ASN Task Force Recommendations. Performed By: #### 4 [id number] #### [facility] [address] [place] [address] 13347 Lew Tim M.D. [id number] Potassium [Moles/Vol] 3.7 mmol/L Normal 3.5-5.1 [facility] Comment on above: Order Comment: [facility] has implemented the eGFR calculation approach that does not have a coefficient for race that conforms to the NKF-ASN Task Force Recommendations. Performed By: #### 4 [id number] #### [facility] [address] [place] [address] 48672 Lew Tim M.D. [id number] Sodium [Moles/Vol] 137 mmol/L Normal 135-145 [facility] Comment on above: Order Comment: [facility] has implemented the eGFR calculation approach that does not have a coefficient for race that conforms to the NKF-ASN Task Force Recommendations. Performed By: #### 4 [id number] #### [facility] [address] [place], [place] [address] Lew Tim M.D. [id number] Urea nitrogen [Mass/Vol] 3 mg/dL Low 8-25 [facility] Comment on above: Order Comment: [facility] has implemented the eGFR calculation approach that does not have a coefficient for race that conforms to the NKF-ASN Task Force Recommendations. Performed By: #### 4 [id number] #### [facility] [address] [place] [address] Lew Tim M.D. [id number] Urea nitrogen/Creatinine [Mass ratio] 7.0 mg/mg Low 10.0-20.0 [facility] Comment on above: Order Comment: [facility] has implemented the eGFR calculation approach that does not have a coefficient for race that conforms to the NKF-ASN Task Force Recommendations. Performed By: #### 4 [id number] #### [facility] [address] [place] [address] Lew Tim M.D. [id number] Basic metabolic 2000 panelon 03-21-2025 Anion gap [Moles/Vol] 16 mmol/L 10 - 2 0 mmol/L [facility] Calcium [Mass/Vol] 8.5 mg/dL 8.4 - 10. 2 mg/dL [facility] Chloride [Moles/Vol] 100 mmol/L 98 - 10 8 mmol/L [facility] Creatinine [Mass/Vol] 0.43 mg/dL 0.40 - 1.10 mg/dL [facility] GFR/1.73 sq M.predicted CKD-EPI (S/P/Bld) [Vol rate/Area] 112 - PINF [facility] Glucose [Mass/Vol] 112 mg/dL High 65 - 99 mg/dL [facility] HCO3 [Moles/Vol] 25 mmol/L 21 - 32 mmol/L [facility] Interpretation and review of laboratory results Abnormal [facility] Potassium [Moles/Vol] 3.7 mmol/L 3.5 - 5.1 mmol/L [facility] Sodium [Moles/Vol] 137 mmol/L 135 - 145 mmol/L [facility] Urea nitrogen [Mass/Vol] 3 mg/dL Low 8 - 25 mg/dL [facility] Urea nitrogen/Creatinine [Mass ratio] 7 mg/mg Low 10.0 - 20.0 [facility] CBCon 03-21-2025 AUTO NRBC 0.0 % Normal [facility] Comment on above: Performed By: #### [id number] ####[facility] [address] [place] [address] Lew Tim M.D. [id number] AUTO NRBC ABS COUNT 0.00 K/mcL Normal 0.00-0.00 [facility] Comment on above: Performed By: #### 4 [id number] ####[facility] [address] [place] [address] Lew Tim M.D. [id number] Erythrocyte distribution width (RBC) [Ratio] 16.2 % High 11.6-14.8 [facility] Comment on above: Performed By: #### 4 [id number] ####[facility] [address] [place] [address] Lew Tim M.D. [id number] Hematocrit (Bld) [Volume fraction] 36.0 % Normal 36.0-46.0 [facility] Comment on above: Performed By: #### 4 [id number] ####[facility] [address] [place] [address] Lew Tim M.D. [id number] Hemoglobin (Bld) [Mass/Vol] 11.5 g/dL Low 12.0-16.0 [facility] Comment on above: Performed By: #### 4 [id number] ####[facility] [address] [place] [address] Lew Tim M.D. [id number] MCH (RBC) [Entitic mass] 30.6 pg Normal 26.0-34.0 [facility] Comment on above: Performed By: #### 4 [id number] ####[facility] [address] [place] [address] Lew Tim M.D. [id number] MCV (RBC) [Entitic vol] 95.7 fL Normal 80.0-100.0 [facility] Comment on above: Performed By: #### 4 [id number] ####[facility] [address] [place] [address] Lew Tim M.D. [id number] MEAN CORPUSCULAR HEMOGLOBIN CONC 31.9 g/dL Normal 31.0-37.0 [facility] Comment on above: Performed By: #### 4 [id number] ####[facility] [address] [place] [address] Lew Tim M.D. [id number] Platelet mean volume (Bld) [Entitic vol] 9.0 fL Low 9.4-12.4 [facility] Comment on above: Performed By: #### 4 [id number] ####[facility] [address] [place], [place] [address] Lew Tim M.D. [id number] Platelets (Bld) [#/Vol] 394 10*3/uL Normal 150-400 [facility] Comment on above: Performed By: #### 4 [id number] ####[facility] [address] [place], [place] [address] Lew Tim M.D. [id number] RBC (Bld) [#/Vol] 3.76 10*6/uL Low 4.00-5.20 [facility] Comment on above: Performed By: #### 4 [id number] ####[facility] [address] [place], [place] [address] Lew Tim M.D. [id number] WBC (Bld) [#/Vol] 10.01 10*3/uL Normal 4.50-11.00 [facility] Comment on above: Performed By: #### 4 [id number] ####[facility] [address] [place], [place] [address] Lew Tim M.D. [id number] CBC panel Auto (Bld)on 03-21 Erythrocyte distribution width (RBC) [Entitic vol] 16.2 % High 11.6 - 14.8 % [facility] Hematocrit (Bld) [Volume fraction] 36 % 36.0 - 46.0 % [facility] Hemoglobin (Bld) [Mass/Vol] 11.5 g/dL Low 12.0 - 16.0 g/dL [facility] Interpretation and review of laboratory results Abnormal [facility] MCH (RBC) [Entitic mass] 30.6 pg 26.0 - 34.0 pg [facility] MCHC (RBC) [Mass/Vol] 31.9 g/dL 31.0 - 37.0 g/dL [facility] MCV (RBC) [Entitic vol] 95.7 fL 80.0 - 100.0 fL [facility] Nucleated RBC (Bld) [#/Vol] 0 10*3/uL [facility] Nucleated RBC/100 WBC (Bld) [Ratio] 0 % [facility] Platelet mean volume (Bld) [Entitic vol] 9 fL Low 9.4 - 12.4 fL [facility] Platelets (Bld) [#/Vol] 394 10*3/uL [facility] RBC (Bld) [#/Vol] 3.76 10*6/uL Low [facility] WBC (Bld) [#/Vol] 10.01 10*3/uL [facility] MAGNESIUM LEVELon 03-21-2025 Magnesium [Mass/Vol] 1.7 mg/dL Normal 1.6-2.4 [facility] Comment on above: Performed By: #### 4 [id number] #### [facility] [address] [place] [address] [id number] [facility] Magnesium Levelon 03-21-2025 Magnesium [Mass/Vol] 1.7 mg/dL 1.6 - 2 .4 mg/dL [facility] Magnesium [Mass/Vol]on 03-21 Interpretation and review of laboratory results Normal [facility] No Panel Informationon 03-21 [facility] ECG 12 Leadon 03-20-2025 Atrial Rate 70 BPM [facility] P [place] 52 degrees [facility] P-R Interval 194 ms [facility] Q-T Interval 398 ms [facility] QRS Duration 74 ms [facility] QTC Calculation (Bezet) 429 ms [facility] R [place] 1 degrees [facility] T [place] 44 degrees [facility] Ventricular Rate 70 BPM [facility] M[facility] SPECT Heart perfusion at res t and W stress and W radionuclide IVOrdered By: Raz Lerner on 03-20-2025 LV Stress Diastolic Volume 135 ml [facility] Work Phone: LV Stress Systolic Volume 80 ml [facility] Work Phone: Stress Nuc Stress EF 41 % [facility] Work Phone: [facility] Work Phone: SPECT Heart perfusion at res t and W stress and W radionuclide Yary 03-20-2025 FUJI SYNAPSE CV [facility] Radiology Study observation (narrative) [facility] 03-19-2025 AUTO NRBC 0.0 % Normal [facility] Comment on above: Performed By: #### [id number] ####[facility] [address] [place], [place] [address] Lew Tim M.D. [id number] AUTO NRBC ABS COUNT 0.00 K/mcL Normal 0.00-0.00 [facility] Comment on above: Performed By: #### 4 [id number] ####[facility] [address] [place], [place] [address] Lew Tim M.D. [id number] Erythrocyte distribution width (RBC) [Ratio] 16.6 % High 11.6-14.8 [facility] Comment on above: Performed By: #### 4 [id number] ####[facility] [address] [place], [place] [address] Lew Tim M.D. [id number] Hematocrit (Bld) [Volume fraction] 35.5 % Low 36.0-46.0 [facility] Comment on above: Performed By: #### 4 [id number] ####[facility] [address] [place], [place] [address] Lew Tim M.D. [id number] Hemoglobin (Bld) [Mass/Vol] 11.5 g/dL Low 12.0-16.0 [facility] Comment on above: Performed By: #### 4 [id number] ####[facility] [address] [place], [place] [address] Lew Tim M.D. [id number] MCH (RBC) [Entitic mass] 31.3 pg Normal 26.0-34.0 [facility] Comment on above: Performed By: #### 4 [id number] ####[facility] [address] [place] [address] Lew Tim M.D. [id number] MCV (RBC) [Entitic vol] 96.7 fL Normal 80.0-100.0 [facility] Comment on above: Performed By: #### 4 [id number] ####[facility] [address] [place] [address] Lew Tim M.D. [id number] MEAN CORPUSCULAR HEMOGLOBIN CONC 32.4 g/dL Normal 31.0-37.0 [facility] Comment on above: Performed By: #### 4 [id number] ####[facility] [address] [place], [place] [address] Lew Tim M.D. [id number] Platelet mean volume (Bld) [Entitic vol] 9.4 fL Normal 9.4-12.4 [facility] Comment on above: Performed By: #### 4 [id number] ####[facility] [address] [place], [place] [address] Lew Tim M.D. [id number] Platelets (Bld) [#/Vol] 361 10*3/uL Normal 150-400 [facility] Comment on above: Performed By: #### 4 [id number] ####[facility] [address] [place], [place] [address] Lew Tim M.D. [id number] RBC (Bld) [#/Vol] 3.67 10*6/uL Low 4.00-5.20 [facility] Comment on above: Performed By: #### 4 [id number] ####[facility] [address] [place] [address] Lew Tim M.D. [id number] WBC (Bld) [#/Vol] 9.64 10*3/uL Normal 4.50-11.00 [facility] Comment on above: Performed By: #### 4 [id number] ####[facility] [address] [place] [address] Lew Tim M.D. [id number] CBC panel Auto (Bld)on 03-19 Erythrocyte distribution width (RBC) [Entitic vol] 16.6 % High 11.6 - 14.8 % [facility] Hematocrit (Bld) [Volume fraction] 35.5 % Low 36.0 - 46.0 % [facility] Hemoglobin (Bld) [Mass/Vol] 11.5 g/dL Low 12.0 - 16.0 g/dL [facility] Interpretation and review of laboratory results Abnormal [facility] MCH (RBC) [Entitic mass] 31.3 pg 26.0 - 34.0 pg [facility] MCHC (RBC) [Mass/Vol] 32.4 g/dL 31.0 - 37.0 g/dL [facility] MCV (RBC) [Entitic vol] 96.7 fL 80.0 - 100.0 fL [facility] Nucleated RBC (Bld) [#/Vol] 0 10*3/uL [facility] Nucleated RBC/100 WBC (Bld) [Ratio] 0 % [facility] Platelet mean volume (Bld) [Entitic vol] 9.4 fL 9.4 - 12.4 fL [facility] Platelets (Bld) [#/Vol] 361 10*3/uL [facility] RBC (Bld) [#/Vol] 3.67 10*6/uL Low [facility] WBC (Bld) [#/Vol] 9.64 10*3/uL [facility] COMPREHENSIVE METABOLIC PANE Robert 03-19-2025 Albumin [Mass/Vol] 2.3 g/dL Low 3.2-5.2 [facility] Comment on above: Order Comment: [facility] has implemented the eGFR calculation approach that does not have a coefficient for race that conforms to the NKF-ASN Task Force Recommendations. Performed By: #### 4 [id number] #### [facility] [address] [place] [address] [id number] RM[facility] ALP [Catalytic activity/Vol] 61 U/L Normal 40-150 [facility] Comment on above: Order Comment: [facility] has implemented the eGFR calculation approach that does not have a coefficient for race that conforms to the NKF-ASN Task Force Recommendations. Performed By: #### 4 [id number] #### [facility] [address] [place] [address] [id number] [facility] ALT [Catalytic activity/Vol] 10 U/L Normal 0-35 U/L [facility] Comment on above: Order Comment: [facility] has implemented the eGFR calculation approach that does not have a coefficient for race that conforms to the NKF-ASN Task Force Recommendations. Performed By: #### 4 [id number] #### [facility] [address] [place] [address] [id number] [facility] Anion gap [Moles/Vol] 14 mmol/L Normal 10-20 [facility] Comment on above: Order Comment: [facility] has implemented the eGFR calculation approach that does not have a coefficient for race that conforms to the NKF-ASN Task Force Recommendations. Performed By: #### 4 [id number] #### [facility] [address] [place] [address] [id number] [facility] AST [Catalytic activity/Vol] 12 U/L Normal 0-35 U/L [facility] Comment on above: Order Comment: [facility] has implemented the eGFR calculation approach that does not have a coefficient for race that conforms to the NKF-ASN Task Force Recommendations. Performed By: #### 4 6986 #### [facility] [address] [place] [address] [id number] [facility] Bilirubin [Mass/Vol] 0.5 mg/dL Normal 0.0-1.3 [facility] Comment on above: Order Comment: [facility] has implemented the eGFR calculation approach that does not have a coefficient for race that conforms to the NKF-ASN Task Force Recommendations. Performed By: #### 4 [id number] #### [facility] [address] [place] [address] [id number] [facility] Calcium [Mass/Vol] 8.4 mg/dL Normal 8.4-10.2 [facility] Comment on above: Order Comment: [facility] has implemented the eGFR calculation approach that does not have a coefficient for race that conforms to the NKF-ASN Task Force Recommendations. Performed By: #### 4 [id number] #### [facility] [address] [place] [address] [id number] [facility] Chloride [Moles/Vol] 103 mmol/L Normal 98-108 [facility] Comment on above: Order Comment: [facility] has implemented the eGFR calculation approach that does not have a coefficient for race that conforms to the NKF-ASN Task Force Recommendations. Performed By: #### 4 [id number] #### [facility] [address] [place] [address] [id number] [facility] Creatinine [Mass/Vol] 0.47 mg/dL Normal 0.40-1.10 [facility] Comment on above: Order Comment: [facility] has implemented the eGFR calculation approach that does not have a coefficient for race that conforms to the NKF-ASN Task Force Recommendations. Performed By: #### 4 [id number] #### [facility] [address] [place] [address] [id number] [facility] EGFR 109 mL/min/1.73 m2 Normal >=60 [facility] Comment on above: Order Comment: [facility] has implemented the eGFR calculation approach that does not have a coefficient for race that conforms to the NKF-ASN Task Force Recommendations. Result Comment: Marce mated GFR was calculated using the 2021 CKD-EPI creatinine equation. Performed By: #### 4 6977 #### [facility] [address] [place] [address] [id number] [facility] Glucose [Mass/Vol] 131 mg/dL High 65-99 [facility] Comment on above: Order Comment: [facility] has implemented the eGFR calculation approach that does not have a coefficient for race that conforms to the NKF-ASN Task Force Recommendations. Performed By: #### 4 6946 #### [facility] [address] [place] [address] [id number] [facility] HCO3 (Bld) [Moles/Vol] 25 mmol/L Normal 21-32 [facility] Comment on above: Order Comment: [facility] has implemented the eGFR calculation approach that does not have a coefficient for race that conforms to the NKF-ASN Task Force Recommendations. Performed By: #### 4 6989 #### [facility] [address] [place] [address] [id number] [facility] Potassium [Moles/Vol] 3.6 mmol/L Normal 3.5-5.1 [facility] Comment on above: Order Comment: [facility] has implemented the eGFR calculation approach that does not have a coefficient for race that conforms to the NKF-ASN Task Force Recommendations. Performed By: #### 4 6942 #### [facility] [address] [place] [address] [id number] [facility] Protein [Mass/Vol] 6.0 g/dL Normal 6.0-8.0 [facility] Comment on above: Order Comment: [facility] has implemented the eGFR calculation approach that does not have a coefficient for race that conforms to the NKF-ASN Task Force Recommendations. Performed By: #### 4 6984 #### [facility] [address] [place] [address] [id number] [facility] Sodium [Moles/Vol] 138 mmol/L Normal 135-145 [facility] Comment on above: Order Comment: [facility] has implemented the eGFR calculation approach that does not have a coefficient for race that conforms to the NKF-ASN Task Force Recommendations. Performed By: #### 4 [id number] #### [facility] [address] [place] [address] [id number] [facility] Urea nitrogen [Mass/Vol] 9 mg/dL Normal 8-25 [facility] Comment on above: Order Comment: [facility] has implemented the eGFR calculation approach that does not have a coefficient for race that conforms to the NKF-ASN Task Force Recommendations. Performed By: #### 4 [id number] #### [facility] [address] [place] [address] [id number] [facility] Urea nitrogen/Creatinine [Mass ratio] 19.1 mg/mg Normal 10.0-20.0 [facility] Comment on above: Order Comment: [facility] has implemented the eGFR calculation approach that does not have a coefficient for race that conforms to the NKF-ASN Task Force Recommendations. Performed By: #### 4 [id number] #### [facility] [address] [place] [address] [id number] [facility] Comprehensive metabolic 2000 panelon 03-19-2025 Albumin [Mass/Vol] 2.3 g/dL Low 3.2 - 5.2 g/dL [facility] ALP [Catalytic activity/Vol] 61 U/L 40 - 150 U/L [facility] ALT [Catalytic activity/Vol] 10 U/L 0 - 35 U/L [facility] Anion gap [Moles/Vol] 14 mmol/L 10 - 2 0 mmol/L [facility] AST [Catalytic activity/Vol] 12 U/L 0 - 35 U/L [facility] Bilirubin [Mass/Vol] 0.5 mg/dL 0.0 - 1 .3 mg/dL [facility] Calcium [Mass/Vol] 8.4 mg/dL 8.4 - 10. 2 mg/dL [facility] Chloride [Moles/Vol] 103 mmol/L 98 - 10 8 mmol/L [facility] Creatinine [Mass/Vol] 0.47 mg/dL 0.40 - 1.10 mg/dL [facility] GFR/1.73 sq M.predicted CKD-EPI (S/P/Bld) [Vol rate/Area] 109 - PINF [facility] Glucose [Mass/Vol] 131 mg/dL High 65 - 99 mg/dL [facility] HCO3 [Moles/Vol] 25 mmol/L 21 - 32 mmol/L [facility] Interpretation and review of laboratory results Abnormal [facility] Potassium [Moles/Vol] 3.6 mmol/L 3.5 - 5.1 mmol/L [facility] Protein [Mass/Vol] 6 g/dL 6.0 - 8.0 g/dL [facility] Sodium [Moles/Vol] 138 mmol/L 135 - 145 mmol/L [facility] Urea nitrogen [Mass/Vol] 9 mg/dL 8 - 25 mg/dL [facility] Urea nitrogen/Creatinine [Mass ratio] 19.1 mg/mg 10.0 - 20.0 [facility] ECHOCARDIOGRAM COMPLETE W CO NTRASTon 03-19-2025 ECHOCARDIOGRAM COMPLETE W CONTRAST Summary 1. The study was technically difficult. 2. Mildly increased left ventricular chamber size, normal wall thickness with mildly reduced global systolic function. LVEF 43%. 3. The left ventricular diastolic function is grade I diastolic dysfunction, consistent with low or normal atrial pressures. 4. Normal right ventricular size and systolic function. 5. Biatrial enlargement. 6. No significant valvular abnormalities identified. Valvular structures poorly visualized in multiple views. 7. The proximal ascending aorta is mildly dilated measuring 3.7 cm with an index of 1.8 cm/m2. 8. There is no pericardial effusion. 9. No prior study available for comparison. Ordering Physician: Rajni Lynn V Referring Physician: Provider Not In System Reading Physician: Des Connor MD Research Neuropsychologist: Eliana JUSTIN Attending Physician: [facility] Clinical Surgery Patient Info Site Location: [facility] Exam Location: [facility] Name: Jose Lind Age: 59 years : 1965 Gender: Female Ht: 178 cm Wt: 82 kg BSA: 2.02 m2 HR: 68 bpm BP: 14 / 82 mmHg Technical Quality: Technically difficult Exam Date: 03/19/2025 8:57 AM Exam Type: ECHOCARDIOGRAM COMPLETE W CONTRAST Study Info Indications - Palpitations I49.9 - Cardiac arrhythmia, unspecified [id number] BMI: 25.83 kg/m2 Procedure(s): Complete two-dimensional, color flow and Doppler transthoracic echocardiogram is performed with contrast. Definity explained to patient. Patient verbalizes understanding and agrees to proceed. Definity 1.3ml/8.7ml normal sterile saline 2 ml total given IV over 30-60 seconds. Left Ventricle Left ventricular chamber dimension is mildly enlarged. Left ventricular systolic function is mildly reduced with an ejection fraction by Biplane Method of Discs of 43 %. There is no significant left ventricular wall thickness. Normal left ventricular wall thickness. Left ventricular segmental wall motion is abnormal. The left ventricular diastolic function is grade I diastolic dysfunction, consistent with low or normal atrial pressures. Global hypokinesis of the left ventricle. Right Ventricle Right ventricular size and systolic function are normal. Left Atria Left atrial chamber is mildly enlarged with a left atrial volume index of 40 ml/m2 by BP MOD. Right Atria Right atrial chamber dimension is enlarged. Aortic Valve The aortic valve is poorly visualized. There is no aortic valve stenosis. There is no aortic valve regurgitation. Pulmonic Valve The pulmonic valve is not well visualized. There is no pulmonic valve stenosis. There is trace pulmonic regurgitation. Mitral Valve The mitral valve has normal leaflets. There is no mitral valve stenosis. There is mild mitral valve regurgitation. Tricuspid Valve The tricuspid valve leaflets are normal. There is no significant tricuspid valve stenosis. There is mild tricuspid valve regurgitation. There is no pulmonary hypertension, estimated right ventricle systolic pressure is 18 mmHg. Pericardium/Pleural There is no pericardial effusion. Inferior Vena Cava Normal inferior vena cava with >50% collapse upon inspiration consistent with normal right atrial pressure. Aorta The aortic measurements are indexed to age and body surface area. The aortic root is dilated measuring 3.6 cm with an index of 1.8 cm/m2. The proximal ascending aorta is mildly dilated measuring 3.7 cm with an index of 1.8 cm/m2. Left Ventricular Outflow Tract ------- Name Value Normal ------- LVOT 2D ------- LVOT Diameter 2.0 cm LVOT Doppler ------- LVOT Peak Velocity 0.9 m/s LVOT Peak Gradient 3 mmHg LVOT Mean Gradient 2 mmHg LVOT VTI 15 cm LVOT VTI/AV VTI Ratio 0.6 LVOT Stroke Volume 48 ml LVOT Stroke Index 23.72 ml/m2 Pulmonic Valve ------- Name Value Normal ------- RVOT Doppler ------- RVOT Peak Velocity 68 cm/s RVOT Peak Gradient 2 mmHg PV Doppler ------- PV Peak Velocity 0.97 m/s PV Peak Gradient 4 mmHg Mitral Valve ------- Name Value Normal ------- MV Doppler ------- MV Peak Velocity 1.09 m/s MV Peak Gradient 5 mmHg MV Mean Gradient 3 mmHg MV VTI 14 cm MV Area (Cont Eq (more content not included)... Normal [facility] Echocardiogram complete w co ntrastOrdered By: Des Connor on 03-19-2025 Aortic valve area [phone] cm [facility] Work Phone: AV mean gradient 6 mmHg [facility] Work Phone: AV peak gradient 12 mmHg [facility] Work Phone: EF [phone] % [facility] Work Phone: [facility] Work Phone: Echocardiogram complete w co ntraston 03-19-2025 FUJI SYNAPSE CV [facility] MAGNESIUM LEVELon 03-19-2025 Magnesium [Mass/Vol] 1.9 mg/dL Normal 1.6-2.4 [facility] Comment on above: Performed By: #### 4 [id number] ####[facility] [address] [address] Lew Tim M.D. [id number] Magnesium Levelon 03-19-2025 Magnesium [Mass/Vol] 1.9 mg/dL 1.6 - 2 .4 mg/dL [facility] No Panel Informationon 03-19 Interpretation and review of laboratory results Normal [facility] PET CT MYOCARDIAL PERFUSION (STRESS AND REST)on 03-19-[address] MYOCARDIAL PERFUSION (STRESS AND REST) Patient Info Name: Jose Lind Age: 59 years : 1965 Gender: Female Ht: 177 cm Wt: 82 kg BSA: 2.02 m2 BP: 135 / 90 mmHg Heart Rhythm: Sinus Rhythm Exam Date: 03/20/2025 11:15 AM Any Known Allergies: NKDA Exam Type: PET CT MYOCARDIAL PERFUSION (STRESS AND REST) Study Info Indications - ECG abnormal, intermediate CAD risk [id number] BMI: 26.06 kg/m2 Summary 1. Abnormal pharmacologic stress PET myocardial perfusion imaging study. 2. There is a medium to large sized predominately fixed mid to apical anterior, apical septal and mid anteroseptal defect with abnormal wall motion consistent with either infarction or resting ischemia. Findings of normal resting and stress myocardial blood flow within the perfusion defect suggest findings reflect resting ischemia rather than infarction. 3. Normal regional and global myocardial blood flow reserve. 4. Moderately reduced left ventricular systolic function, with calculated ejection fraction 30 %. 5. Normal left ventricular ejection fraction reserve. 6. Moderate coronary artery calcification and dilation of the ascending aorta measuring 4.0 cm x 3.9 cm was detected on CT attenuation correction images. 7. Consider further anatomic assessment with either CCTA or invasive coronary angiography. 8. No prior study is available for comparison. Findings discussed with Dr. Tang. History/Risk Factors Tobacco Use: Former History/Risk Factors Atrial Tachycardia, Breast Reduction. Image Protocol Rest Radiopharmaceutical: Rubidium-82 Administration Site: IV - left forearm Administered By: Lori Espinal CNMT Radiopharmaceutical Dose: 21.2 mCi Imaging Date AND Time: 03/20/2025 12:09 PM Injection Date AND Time: 03/20/2025 12:09 PM Stress Radiopharmaceutical: Rubidium-82 Administration Site: IV - left forearm Administered By: Lori Espinal CNMT PET Scanner: Siemens Vitasol Radiopharmaceutical Dose: 21.2 mCi Imaging Date AND Time: 03/20/2025 12:21 PM Injection Date AND Time 03/20/2025 12:21 PM Protocol: Gated Rest / Gated Stress Procedure(s): Gated resting PET images and gated Stress PET images performed immediately post Rubidium-[address] for attenuation. Summed Difference Score: 0 Summed Stress Score: 8 Summed Rest Score: 8 Perfusion Quantitative Results Stress Myocardial Blood Flow (MBF) LAD Stress MBF: 1.99 ml/min/g LCX Stress MBF: 2.59 ml/min/g RCA Stress MBF: 2.43 ml/min/g Global Stress MBF: 2.16 ml/min/g Resting Myocardial Blood Flow (MBF) LAD Resting MBF: 0.68 ml/min/g LCX Resting MBF: 1.02 ml/min/g RCA Resting MBF: 0.83 ml/min/g Global Resting MBF: 0.79 ml/min/g Myocardial Blood Flow [place] (MBFR) LAD MBFR: 2.94 LCX MBFR: 2.54 RCA MBFR: 2.91 Global MBFR: 2.75 Functional Results ------- Name Value Normal ------- Stress ------- Stress LV Ejection Fraction 41 % 55-70 Stress LV End Systolic Volume 80 ml Nuclear Stress Cardiac Output 5.0 l/min Stress LV End Diastolic Volume 135 ml Transient Ischemic Dilatation 1.00 Nuclear Stress Myocardial Mass 160 g ------- Name Value Normal ------- Rest ------- Resting LV Ejection Fraction 30 % 55-70 Resting LV End Diastolic Volume 121 ml Nuclear Rest Cardiac Output 2.8 l/min LVEF [place] 11 % Resting LV End Systolic Volume 85 ml Nuclear Rest Myocardial Mass 155 g Stress ECG Details Rest HR: 73 bpm Peak HR: 133 bpm Rest Sys BP: 135 mmHg Peak Sys BP: 123 mmHg Max Pred HR: 160 bpm % Max Pred HR: 83 % Target HR: 136 bpm Max RPP: 16,359 bpm*mmHg BP Response: Normal blood pressure response Termination Reason: At the end of vasodilator infusion Cardiac Symptoms: None Total Time: 4 min : 0 sec Rest Mosley BP: 90 mmHg Peak [place] BP: 83 mmHg Total Dose: 0.4 mg Protocol: REGADENOSON Resting ECG Normal sinus rhythm. Non-specific ST wave abnormalities. Stress ECG No abnormal ST/T wave changes with exercise. Arrhythmias Occasional PVCs. Exercise Tolerance Cardiac PET. Stress Summary Normal Regadenoson stress electrocardiogram. Route: IV Duration: 10 seconds Report Signatures PET Finalized by Raz Lerner MD on 03/20/2025 02:07 PM Stress Finalize by Raz Lerner MD on 03/20/2025 02:07 PM Dictated by: RAZ LERNER on SunMarch 20, 2025 2:07:42 PM EDT Transcribed by: RAZ LERNER on SunMarch 20, 2025 2:07:42 PM EDT Finalized by: RAZ LERNER on SunMarch 20, 2025 2:07:42 PM EDT Normal [facility] Comment on above: Order Comment: Injur y/Trauma or Illness?:Illness/Other How long have you had these symptoms (acute/chronic)?:Unknown Reason for exam?:cp Type of Exam?:Unknown Additional signs and symptoms?:n PHOSPHORUSon 03-19-2025 Phosphate [Mass/Vol] 2.7 mg/dL Normal 2.7-4.5 [facility] Comment on above: Performed By: #### 4 [id number] #### [facility] [address] [place] [address] Lew Tim M.D. [id number] Phosphoruson 03-19-2025 Phosphate [Mass/Vol] 2.7 mg/dL 2.7 - 4 .5 mg/dL [facility] XR ABDOMEN /KUB/FLAT PLATE/1 VIEWon 03-19-2025 XR ABDOMEN /KUB/FLAT PLATE/1 VIEW EXAMINATION: Abdomen x-ray HISTORY: ORDERING SYSTEM PROVIDED HISTORY: eval increased gastric distention / ileus, TECHNOLOGIST PROVIDED HISTORY: Illness/Other Reason for exam: eval increased gastric distention / ileus Cancer History: . Surgery, RadiationHistory: . Encounter Type: Initial Additional signs and symptoms: . COMPARISON: 03/18/2025 TECHNIQUE: Two views of the abdomen are submitted. FINDINGS: A nasogastric tube is in place with the tip projecting over the medial left upper abdomen overlying the stomach. Persistently distended loops of small bowel are identified on this examination measuring up to 4.4 cm. The appearance is grossly unchanged and may represent postsurgical ileus. There are surgical nichol projecting to the left of the midline of the lower abdomen. IMPRESSION: Persistently distended small bowel loops possibly secondary to ileus. Continued clinical and radiographic follow-up are recommended. Workstation ID: [id number] Dictated by: SWETHA CHAUDHRY on [place] March 19, 2025 8:24:47 PM EDT Transcribed by: SWETHA CHAUDHRY on [place] March 19, 2025 8:24:47 PM EDT Finalized by: SWETHA CHAUDHRY on [place] March 19, 2025 8:24:47 PM EDT Normal [facility] Comment on above: Order Comment: Injur y/Trauma or Illness?:Illness/OtherHow long have you had these symptoms (acute/chronic)?:AcuteReason for exam?:eval increased gastric distention / ileusHistory of cancer?:.Surgeries, chemotherapy, or radiation?:.Type of Exam?:InitialAdditional signs and symptoms?:. XR Chest View and Abdomen [place] 03-19-2025 GE RIS GE RIS [facility] Radiology Study observation (narrative) XR Chest View and Abdomen [place] and UprightOrdered By: Swetha Chaudhry on 03-19-2025 [facility] Work Phone: BASIC METABOLIC PANELon 02-20 Anion gap [Moles/Vol] 13 mmol/L Normal 10-20 [facility] Comment on above: Order Comment: Injur y/Trauma or Illness?:Illness/Other How long have you had these symptoms (acute/chronic)?:Unknown Reason for exam?:cp Type of Exam?:Unknown Additional signs and symptoms?:n Performed By: #### 4 [id number] ####[facility] [address] [place] [address] Lew Tim M.D. [id number] Calcium [Mass/Vol] 8.7 mg/dL Normal 8.4-10.2 [facility] Comment on above: Order Comment: Injur y/Trauma or Illness?:Illness/Other How long have you had these symptoms (acute/chronic)?:Unknown Reason for exam?:cp Type of Exam?:Unknown Additional signs and symptoms?:n Performed By: #### 4 6157 ####[facility] [address] [place], [place] [address] Lew Tim M.D. [id number] Chloride [Moles/Vol] 99 mmol/L Normal 98-108 [facility] Comment on above: Order Comment: Injur y/Trauma or Illness?:Illness/Other How long have you had these symptoms (acute/chronic)?:Unknown Reason for exam?:cp Type of Exam?:Unknown Additional signs and symptoms?:n Performed By: #### 4 6116 ####[facility] [address] [place], [place] [address] Lew Tim M.D. [id number] Creatinine [Mass/Vol] 0.59 mg/dL Normal 0.40-1.10 [facility] Comment on above: Order Comment: Injur y/Trauma or Illness?:Illness/Other How long have you had these symptoms (acute/chronic)?:Unknown Reason for exam?:cp Type of Exam?:Unknown Additional signs and symptoms?:n Performed By: #### 4 6144 ####[facility] [address] [place], [place] [address] Lew Tim M.D. [id number] EGFR 103 mL/min/1.73 m2 Normal >=60 [facility] Comment on above: Order Comment: Injur y/Trauma or Illness?:Illness/Other How long have you had these symptoms (acute/chronic)?:Unknown Reason for exam?:cp Type of Exam?:Unknown Additional signs and symptoms?:n Result Comment: Marce mated GFR was calculated using the 2020 CKD-EPI creatinine equation. Performed By: #### 4 6198 ####[facility] [address] [place], [place] [address] Lew Tim M.D. [id number] Glucose [Mass/Vol] 125 mg/dL High 65-99 [facility] Comment on above: Order Comment: Injur y/Trauma or Illness?:Illness/Other How long have you had these symptoms (acute/chronic)?:Unknown Reason for exam?:cp Type of Exam?:Unknown Additional signs and symptoms?:n Performed By: #### 4 6114 ####[facility] [address] [place], [place] [address] Lew Tim M.D. [id number] HCO3 (Bld) [Moles/Vol] 23 mmol/L Normal 21-32 [facility] Comment on above: Order Comment: Injur y/Trauma or Illness?:Illness/Other How long have you had these symptoms (acute/chronic)?:Unknown Reason for exam?:cp Type of Exam?:Unknown Additional signs and symptoms?:n Performed By: #### 4 6124 ####[facility] [address] [place], [place] [address] Lew Tim M.D. [id number] Potassium [Moles/Vol] 3.7 mmol/L Normal 3.5-5.1 [facility] Comment on above: Order Comment: Injur y/Trauma or Illness?:Illness/Other How long have you had these symptoms (acute/chronic)?:Unknown Reason for exam?:cp Type of Exam?:Unknown Additional signs and symptoms?:n Performed By: #### 4 6124 ####[facility] [address] [place], [place] [address] Lew Tim M.D. [id number] Sodium [Moles/Vol] 131 mmol/L Low 135-145 [facility] Comment on above: Order Comment: Injur y/Trauma or Illness?:Illness/Other How long have you had these symptoms (acute/chronic)?:Unknown Reason for exam?:cp Type of Exam?:Unknown Additional signs and symptoms?:n Performed By: #### 4 6124 ####[facility] [address] [place], [place] [address] Lew Tim M.D. [id number] Urea nitrogen [Mass/Vol] 10 mg/dL Normal 8-25 [facility] Comment on above: Order Comment: Injur y/Trauma or Illness?:Illness/Other How long have you had these symptoms (acute/chronic)?:Unknown Reason for exam?:cp Type of Exam?:Unknown Additional signs and symptoms?:n Performed By: #### 4 6124 ####[facility] [address] [place], [place] [address] Lew Tim M.D. [id number] Urea nitrogen/Creatinine [Mass ratio] 16.9 mg/mg Normal 10.0-20.0 [facility] Comment on above: Order Comment: Injur y/Trauma or Illness?:Illness/Other How long have you had these symptoms (acute/chronic)?:Unknown Reason for exam?:cp Type of Exam?:Unknown Additional signs and symptoms?:n Performed By: #### 4 6124 ####[facility] [address] [place] [address] Lew Tim M.D. [id number] Basic metabolic 2000 panelOr dered By: Awilda Comer on 03-18-2025 Anion gap [Moles/Vol] 13 mmol/L 10 - 2 0 mmol/L [facility] Calcium [Mass/Vol] 8.7 mg/dL 8.4 - 10. 2 mg/dL [facility] Chloride [Moles/Vol] 99 mmol/L 98 - 10 8 mmol/L [facility] Creatinine [Mass/Vol] 0.59 mg/dL 0.40 - 1.10 mg/dL [facility] GFR/1.73 sq M.predicted CKD-EPI (S/P/Bld) [Vol rate/Area] 103 - PINF [facility] Glucose [Mass/Vol] 125 mg/dL High 65 - 99 mg/dL [facility] HCO3 [Moles/Vol] 23 mmol/L 21 - 32 mmol/L [facility] Potassium [Moles/Vol] 3.7 mmol/L 3.5 - 5.1 mmol/L [facility] Sodium [Moles/Vol] 131 mmol/L Low 135 - 145 mmol/L [facility] Urea nitrogen [Mass/Vol] 10 mg/dL 8 - 25 mg/dL [facility] Urea nitrogen/Creatinine [Mass ratio] 16.9 mg/mg 10.0 - 20.0 [facility] CBCon 03-18-2025 AUTO NRBC 0.0 % Normal [facility] Comment on above: Performed By: #### 4 [id number] #### [facility] [address] [place], [place] [address] Lew Tim M.D. [id number] AUTO NRBC ABS COUNT 0.00 K/mcL Normal 0.00-0.00 [facility] Comment on above: Performed By: #### 4 [id number] #### [facility] [address] [place], [place] [address] Lew Tim M.D. [id number] Erythrocyte distribution width (RBC) [Ratio] 16.2 % High 11.6-14.8 [facility] Comment on above: Performed By: #### 4 [id number] #### [facility] [address] [place] [address] Lew Tim M.D. [id number] Hematocrit (Bld) [Volume fraction] 34.5 % Low 36.0-46.0 [facility] Comment on above: Performed By: #### 4 [id number] #### [facility] [address] [place] [address] Lew Tim M.D. [id number] Hemoglobin (Bld) [Mass/Vol] 11.6 g/dL Low 12.0-16.0 [facility] Comment on above: Performed By: #### 4 [id number] #### [facility] [address] [place], [place] [address] Lew Tim M.D. [id number] MCH (RBC) [Entitic mass] 31.4 pg Normal 26.0-34.0 [facility] Comment on above: Performed By: #### 4 [id number] #### [facility] [address] [place], [place] [address] Lew Tim M.D. [id number] MCV (RBC) [Entitic vol] 93.5 fL Normal 80.0-100.0 [facility] Comment on above: Performed By: #### 4 [id number] #### [facility] [address] [place], [place] [address] Lew Tim M.D. [id number] MEAN CORPUSCULAR HEMOGLOBIN CONC 33.6 g/dL Normal 31.0-37.0 [facility] Comment on above: Performed By: #### 4 [id number] #### [facility] [address] [place] [address] Lew Tim M.D. [id number] Platelet mean volume (Bld) [Entitic vol] 9.0 fL Low 9.4-12.4 [facility] Comment on above: Performed By: #### 4 [id number] #### [facility] [address] [place], [place] [address] Lew Tim M.D. [id number] Platelets (Bld) [#/Vol] 328 10*3/uL Normal 150-400 [facility] Comment on above: Performed By: #### 4 [id number] #### [facility] [address] [place], [place] [address] Lew Tim M.D. [id number] RBC (Bld) [#/Vol] 3.69 10*6/uL Low 4.00-5.20 [facility] Comment on above: Performed By: #### 4 [id number] #### [facility] [address] [place], [place] [address] Lew Tim M.D. [id number] WBC (Bld) [#/Vol] 11.74 10*3/uL High 4.50-11.00 [facility] Comment on above: Performed By: #### 4 [id number] #### [facility] [address] [place] [address] Lew Tim M.D. [id number] CBC panel Auto (Bld)on 03-18 Erythrocyte distribution width (RBC) [Entitic vol] 16.2 % High 11.6 - 14.8 % [facility] Hematocrit (Bld) [Volume fraction] 34.5 % Low 36.0 - 46.0 % [facility] Hemoglobin (Bld) [Mass/Vol] 11.6 g/dL Low 12.0 - 16.0 g/dL [facility] Interpretation and review of laboratory results Abnormal [facility] MCH (RBC) [Entitic mass] 31.4 pg 26.0 - 34.0 pg [facility] MCHC (RBC) [Mass/Vol] 33.6 g/dL 31.0 - 37.0 g/dL [facility] MCV (RBC) [Entitic vol] 93.5 fL 80.0 - 100.0 fL [facility] Nucleated RBC (Bld) [#/Vol] 0 10*3/uL [facility] Nucleated RBC/100 WBC (Bld) [Ratio] 0 % [facility] Platelet mean volume (Bld) [Entitic vol] 9 fL Low 9.4 - 12.4 fL [facility] Platelets (Bld) [#/Vol] 328 10*3/uL [facility] RBC (Bld) [#/Vol] 3.69 10*6/uL Low [facility] WBC (Bld) [#/Vol] 11.74 10*3/uL [facility] CONSULTon 03-18-2025 CONSULT - Attestation signed by Bernice Tang MD at 03/18/2025 11:59 AM CARDIOLOGY CONSULTATION Bernice Tang MD, [facility] I have reviewed the history, physical, diagnosis and care plan with the resident physician. I confirm the assessment and treatment plan. I have performed my own separate complete history and physical exam on the same calendar day as theirs and it agrees with the exam and history documented by the resident in this note with the following addendum: Pleasant 59-year-old female with no significant cardiac history comes in with perforated sigmoid diverticulitis and goes for exploratory lap and abdominal washout on March 16. Postoperatively in the last 24 hours she has gone in and out of SVT. Based on the EKGs this appears to be a atrial tachycardia that probably originates in the bottom of the right atrium as the P wave in sinus rhythm is upright and when she goes into this SVT it is inverted indicating it is coming from the opposite pole of the SA node. Interestingly, she jumps up to 130 bpm and is asymptomatic with it. It will then convert back to sinus rhythm at 80 bpm. She has probably had 30 of these episodes overnight on my telemetry review. Each episode last a minute or 2. I explained to her the significance of this. It is almost certainly a benign rhythm that is triggered by her inflammatory state from her perforated diverticulitis and probable infection. I suspect it will settle down eventually. In the meantime I would like to start her on Lopressor 25 twice daily to cool off this piece of atrium that is irritable. IMPRESSION 1. Intermittent atrial tachycardia triggered by perforated diverticulum 2. No other significant cardiac history. PLAN 1. Lopressor 25 twice daily for 1 month after discharge and then she could stop it. 2. Check echocardiogram today. If it is unremarkable then no further workup. Resident Consult Note Patient Name: Jose Lind : 1965 Admit Date: [id number] Assessment and Plan Patient is a 59 y.o. female with a past medical history significant for diverticulosis, perforated sigmoid diverticulitis s/p ex-lap with diverting colostomy and abdominal washout (03/16), former smoker with 20 pack years who [facility] a [facility] for general surgery evaluation. Surgery following. Cardiology consulted for post-op intermittent tachycardia and elevated troponin. Intermittent Tachycardia - Etiology likely multifactorial and stemming from sympathetic overactivity from pain / stress, electrolyte disturbance, and infection from perforated sigmoid diverticulitis - As noted around 02:30AM with rate as high as 140's. Asymptomatic with associated tachypnea - Multiple EKGs obtained with varying rhythms depicted on different strips: SVT, atrial tachycardia, sinus tachycardia, sinus rhythm with PVCs - Family history notable for CVA in mother and GA in father & brother - S/p stress test (06/2002) negative for ischemia, LVEF 65% - S/p stress test (12/2005) negative for ischemia, LVEF 55% - S/p stress echo (10/2010) negative for ischemia, LVEF 55% - Mag, Phos, K repleted. Down-trending WBC. TSH with reflex T4 WNL - Hemoglobin of 11.6 this AM from 13.2 two days ago - NT-Pro BNP of 479 (03/16) - Maintained on IVF with D5LR at 125cc/hr. On VTE prophylaxis with Lovenox 40mg daily. Empiric abx with Zosyn - Recommend continuous telemetry monitoring. Will order TTE and schedule 25mg of Lopressor BID. Plan to be discussed with attending on service. Elevated Troponin - Likely a consequence of myocardial oxygen-supply demand mismatch and possibly further influenced by the above tachycardia. Less concerned for ischemic insult - Patient asymptomatic with no chest pain, palpitations or dyspnea - Troponin T 15 -> 15 Mati Aranda MD Internal Medicine PGY 1 Pager: [phone] 03/18/25 7:14 AM Presenting Symptom: perforated sigmoid diverticulitis History of Present Illness Jose Lind is a 59 y.o. female with a past medical history significant for diverticulosis, perforated sigmoid diverticulitis s/p ex-lap with diverting colostomy and abdominal washout (03/16), former smoker with 20 pack years who [facility] as a transfer for general surgery evaluation. Surgery following. Cardiology consulted for post-op intermittent tachycardia and elevated troponin. - EKG obtained with sinus atrial tachycardia (03/18), sinus tachycardia (03/18), sinus rhythm with PVCs (03/17), and sinus tachycardia (03/16) - Family history notable for CVA in mother and GA in father & brother - S/p stress test (06/2002) negative for ischemia, LVEF 65% - S/p stress test (12/2005) negative for ischemia, LVEF 55% - S/p stress echo (0 (more content not included)... Normal [facility] ECG 12 [place] 03-18-2025 Atrial Rate 86 BPM [facility] P [place] 51 degrees [facility] P-R Interval 196 ms [facility] Q-T Interval 372 ms [facility] QRS Duration 72 ms [facility] QTC Calculation (Bezet) 432 ms O [facility] R [place] -9 degrees [facility] T [place] 71 degrees [facility] Ventricular Rate 81 BPM [facility] Atrial Rate 133 BPM [facility] P-R Interval 168 ms [facility] Q-T Interval 266 ms [facility] QRS Duration 78 ms [facility] QTC Calculation (Bezet) 395 ms [facility] R [place] -15 degrees [facility] T [place] -55 degrees [facility] Ventricular Rate 133 BPM [facility] Atrial Rate 141 BPM [facility] P-R Interval 166 ms [facility] Q-T Interval 254 ms [facility] QRS Duration 70 ms [facility] QTC Calculation (Bezet) 389 ms [facility] T [place] 80 degrees [facility] Ventricular Rate 141 BPM [facility] HEMOGLOBIN A1Con 03-18-2025 Glucose [Mass/Vol] 114 mg/dL Normal 74-114 [facility] Comment on above: Order Comment: Injur y/Trauma or Illness?:Illness/Other How long have you had these symptoms (acute/chronic)?:Unknown Reason for exam?:NG/OG tube placement History of cancer?:. Surgeries, chemotherapy, or radiation?:. Type of Exam?:Initial Additional signs and symptoms?:. Performed By: #### 4 [id number] ####[facility] [address] [place] [address] Lew Tim M.D. [id number] HbA1c (Bld) [Mass fraction] 5.6 % Normal 4.2-5.6 [facility] Comment on above: Order Comment: Injur y/Trauma or Illness?:Illness/Other How long have you had these symptoms (acute/chronic)?:Unknown Reason for exam?:NG/OG tube placement History of cancer?:. Surgeries, chemotherapy, or radiation?:. Type of Exam?:Initial Additional signs and symptoms?:. Performed By: #### 4 [id number] ####[facility] [address] [place] [address] Lew Tim M.D. [id number] HEPATIC FUNCTION PANELon Albumin [Mass/Vol] 2.6 g/dL Low 3.2-5.2 [facility] Comment on above: Performed By: #### 4 6932 #### [facility] [address] [place], [place] [id number] RMHPOC ALP [Catalytic activity/Vol] 66 U/L Normal 40-150 [facility] Comment on above: Performed By: #### 4 6941 #### [facility] [address] [place] [address] [id number] RMHPOC ALT [Catalytic activity/Vol] 13 U/L Normal 0-35 U/L [facility] Comment on above: Performed By: #### 4 6901 #### [facility] [address] [place] [address] [id number] RMHPOC AST [Catalytic activity/Vol] 11 U/L Normal 0-35 U/L [facility] Comment on above: Performed By: #### 4 4175 #### [facility] [address] [place] [address] [id number] RMHPOC Bilirubin [Mass/Vol] 0.6 mg/dL Normal 0.0-1.3 [facility] Comment on above: Performed By: #### 4 1066 #### [facility] [address] [place] [address] [id number] RMHPOC Bilirubin.indirect [Mass/Vol] 0.3 mg/dL Normal 0.0-0.4 [facility] Comment on above: Performed By: #### 4 6904 #### [facility] [address] [place] [address] [id number] RMHPOC Protein [Mass/Vol] 6.1 g/dL Normal 6.0-8.0 [facility] Comment on above: Performed By: #### 4 3534 #### [facility] [address] [place] [address] [id number] RMHPOC HbA1c (Bld) [Mass fraction]o n 03-18-2025 Average glucose Estimated from glycated hemoglobin (Bld) [Mass/Vol] 114 mg/dL 74 - 114 mg/dL [facility] Interpretation and review of laboratory results Normal [facility] Hemoglobin A1con 03-18-2025 HbA1c (Bld) [Mass fraction] 5.6 % 4.2 - 5.6 % [facility] Hepatic function 2000 panelo n 03-18-2025 Albumin [Mass/Vol] 2.6 g/dL Low 3.2 - 5.2 g/dL [facility] ALP [Catalytic activity/Vol] 66 U/L 40 - 150 U/L [facility] ALT [Catalytic activity/Vol] 13 U/L 0 - 35 U/L [facility] AST [Catalytic activity/Vol] 11 U/L 0 - 35 U/L [facility] Bilirubin [Mass/Vol] 0.6 mg/dL 0.0 - 1 .3 mg/dL [facility] Bilirubin.conjugated [Mass/Vol] 0.3 mg/dL 0.0 - 0.4 mg/dL [facility] Interpretation and review of laboratory results Abnormal [facility] Protein [Mass/Vol] 6.1 g/dL 6.0 - 8.0 g/dL [facility] LIPID PANELon 03-18-2025 Cholesterol [Mass/Vol] 110 mg/dL Normal 100-199 [facility] Comment on above: Result Comment: [facility] Cholesterol Education Program Guidelines: Cholesterol Desirable: <200 mg/dL Borderline High: 200-239 mg/dL High: greater than or equal to 240 mg/dL Performed By: #### L [id number] #### [facility] [address] [place], [place] [address] Lew Tim M.D. [id number] Cholesterol in HDL [Mass/Vol] 23 mg/dL Low 40-59 [facility] Comment on above: Performed By: #### L [id number] #### [facility] [address] [place] [address] Lew Tim M.D. [id number] Cholesterol.total/Sylvia sterol in HDL [Mass ratio] 4.8 {ratio} Normal [facility] Comment on above: Result Comment: [facility] Cholesterol/HDL Ratio: Average risk: 4.4 1/2 average risk: 3.3 2 x average risk: 7.1 Performed By: #### L [id number] #### [facility] [address] [place], [place] [address] Lew Tim M.D. [id number] LDL CHOLESTEROL CALCULATED 67 mg/dL Normal 10-130 [facility] Comment on above: Result Comment: [facility] Cholesterol Education Program Guidelines: LDL Cholesterol Optimal: <100 mg/dL Near Optimal/above Optimal: 100-129 mg/dL Borderline High: 130-159 mg/dL High: 160-189 mg/dL Very High: greater than or equal to 190 mg/dL Performed By: #### L [id number] #### [facility] [address] [place] [address] Lew Tim M.D. [id number] NON HDL CHOL 87 mg/dL Normal [facility] Comment on above: Result Comment: [facility] Cholesterol Education Program Guidelines: NON HDL Cholesterol Desirable: <130 mg/dL Borderline High: 130-159 mg/dL High: 160-189 mg/dL Very High: > or = 190 mg/dL Performed By: #### L [id number] #### [facility] [address] [place] [address] Lew Tim M.D. [id number] Triglyceride [Mass/Vol] 100 mg/dL Normal 30-150 [facility] Comment on above: Result Comment: [facility] Cholesterol Education Program Guidelines: Triglyceride Normal: <150 mg/dL Borderline High: 150-199 mg/dL High: 200-499 mg/dL Very High: greater than or equal to 500 mg/dL Performed By: #### L [id number] #### [facility] [address] [place], [place] [address] Lew Tim M.D. [id number] Lipid 1996 panelon 5 Cholesterol [Mass/Vol] 110 mg/dL 100 - 199 mg/dL [facility] Cholesterol in HDL [Mass/Vol] 23 mg/dL Low 40 - 59 mg/dL [facility] Cholesterol in LDL [Mass/Vol] 67 mg/dL 10 - 130 mg/dL [facility] Cholesterol non HDL [Mass/Vol] 87 mg/dL [facility] Cholesterol.total/Sylvia sterol in HDL [Mass ratio] 4.8 {ratio} ratio [facility] Interpretation and review of laboratory results Abnormal [facility] Triglyceride [Mass/Vol] 100 mg/dL 30 - 150 mg/dL [facility] MAGNESIUM LEVELon 03-18-2025 Magnesium [Mass/Vol] 1.7 mg/dL Normal 1.6-2.4 [facility] Comment on above: Performed By: #### 4 6109 ####[facility] [address] [place] [address] Lew Tim M.D. [id number] Magnesium Levelon 03-18-2025 Magnesium [Mass/Vol] 1.7 mg/dL 1.6 - 2 .4 mg/dL [facility] Magnesium [Mass/Vol]on 03-18 Interpretation and review of laboratory results Normal [facility] No Panel InformationOrdered By: Awilda Comer on 03-18-2025 Interpretation and review of laboratory results Abnormal [facility] OSMOLALITYon 03-18-2025 Osmolality [Osmolality] 274 mosm/kg Low 275-295 [facility] Comment on above: Performed By: #### 4 6932 #### [facility] [address] [place] [address] [id number] RMOC OSMOLALITY, URINEon 03-18-20 25 OSMOLALITY URINE 490 mOsm/kg Normal [facility] Comment on above: Order Comment: No es tablished reference range. Performed By: #### 4 6299 #### [facility] [address] [place] [address] Lew Tim M.D. [id number] OsmolalityOrdered By: Gurwinder sorto on 03-18-2025 Osmolality [Osmolality] 274 mosm/kg Low [facility] Osmolality (U) [Osmolality]o n 03-18-2025 [facility] Osmolality [Osmolality]Order ed By: Gurwinder Jensen on 03-18-2025 Interpretation and review of laboratory results Abnormal [facility] Osmolality, Urineon 03-18-20 25 Osmolality (U) [Osmolality] 490 mosm/kg mOsm/kg [facility] PHOSPHORUSon 03-18-2025 Phosphate [Mass/Vol] 2.1 mg/dL Low 2.7-4.5 [facility] Comment on above: Performed By: #### 4 6299 #### [facility] [address] [place] [address] Lew Tim M.D. [id number] Phosphoruson 03-18-2025 Phosphate [Mass/Vol] 2.1 mg/dL Low 2.7 - 4 .5 mg/dL [facility] SODIUM, URINE, RANDOMon 02-20 Sodium (U) [Moles/Vol] 40 mmol/L Normal [facility] Comment on above: Order Comment: No es tablished reference range. Performed By: #### L [id number] #### [facility] [address] [place] [address] Lew Tim M.D. [id number] Sodium (U) [Moles/Vol]Ordere d By: Jose Daniel Osuna on 03-18-2025 [facility] Sodium, Urine, RandomOrdered By: Jose Daniel Osuna on 03-18-2025 Sodium (U) [Moles/Vol] 40 mmol/L [facility] TROPONIN (ONCE)on 03-18-2025 BASELINE TROPONIN T NG/L 15 ng/L Off scale high <=14 [facility] Comment on above: Performed By: #### 4 6299 #### [facility] [address] [place] [address] Lew Tim M.D. [id number] TROPONIN T INTERPRETATION Possible acute cardiac injury. Normal [facility] Comment on above: Performed By: #### 4 [id number] #### [facility] [address] [place] [address] Lew Tim M.D. [id number] TSH DL <= 0.005 mIU/L Qnon 0 03-18-2025 Interpretation and review of laboratory results Normal [facility] TSH Qn 1.26 m[IU]/L [facility] TSH WITH REFLEX FREE T4on TSH Qn 1.26 m[IU]/L Normal 0.27-4.20 [facility] Comment on above: Performed By: #### 4 4197 #### [facility] [address] [address] Lew Tim M.D. [id number] Troponin (Once)Ordered By: Madhav Joyner on 03-18-2025 Interpretation and review of laboratory results Abnormal [facility] Troponin T 15 ng/L Critically high NINF - 14 ng/L [facility] Troponin T Interpretation Possible acute cardiac injury. [facility] XR ABDOMEN /KUB/FLAT PLATE/1 VIEWon 03-18-2025 XR ABDOMEN /KUB/FLAT PLATE/1 VIEW EXAMINATION: XR ABDOMEN /KUB/FLAT PLATE/1 VIEW 03/18/2025 12:16 pm HISTORY: ORDERING SYSTEM PROVIDED HISTORY: NG/OG tube placement, TECHNOLOGIST PROVIDED HISTORY: Illness/Other Reason for exam: NG/OG tube placement Cancer History: . Surgery, RadiationHistory: . Encounter Type: Initial Additional signs and symptoms: . ORDERING SYSTEM PROVIDED DIAGNOSIS CODES: K57.20 Diverticulitis of colon with perforation K65.1 Intra-abdominal abscess (HCC) D72.829 Leukocytosis, unspecified type COMPARISON STUDY: Supine abdomen from the same day performed earlier at 11:42 a.m. TECHNIQUE: Upright image was obtained. Portions of the lower abdomen as well as the pelvis are excluded from the krvxf-by-bgey. IMPRESSION: FINDINGS/ 1. NG tube has been placed with the tip in the distribution of the gastric fundus. 2. Heart size is stable. Mild bibasilar predominant atelectatic changes are present with central vascular crowding. 3. No convincing evidence of intraperitoneal free air. 4. There is persistent gaseous distention of small bowel segments about the upper abdomen extending caudally out of [id number]. A left-sided jejunal segment for example has transverse diameter of 4.2 cm. There is gas noted more distally within the large bowel. This may represent ileus versus partial small bowel obstruction. Correlate clinically. [employer] Workstation ID: [id number] Dictated by: JOEL HARPER on SunMarch 18, 2025 1:01:40 PM EDT Transcribed by: CANDICE MEDINA on SunMarch 18, 2025 2:32:51 PM EDT Finalized by: JOEL HARPER on SunMarch 18, 2025 5:18:43 PM EDT [facility] Comment on above: Order Comment: Injur y/Trauma or Illness?:Illness/Other How long have you had these symptoms (acute/chronic)?:Unknown Reason for exam?:NG/OG tube placement History of cancer?:. Surgeries, chemotherapy, or radiation?:. Type of Exam?:Initial Additional signs and symptoms?:. XR ABDOMEN /KUB/FLAT PLATE/1 VIEW EXAMINATION: XR ABDOMEN /KUB/FLAT PLATE/1 VIEW HISTORY: ORDERING SYSTEM PROVIDED HISTORY: eval abd distention, TECHNOLOGIST PROVIDED HISTORY: Illness/Other Reason for exam: eval abd distention Cancer History: . Surgery, RadiationHistory: . Encounter Type: Unknown Additional signs and symptoms: . ORDERING SYSTEM PROVIDED DIAGNOSIS CODES: K57.20 Diverticulitis of colon with perforation K65.1 Intra-abdominal abscess (HCC) D72.829 Leukocytosis, unspecified type COMPARISON: Multiple prior comparisons IMPRESSION/FINDINGS: Superficial surgical nichol are present in the pelvis. Mildly increased gaseous distention of small bowel loops within the upper abdomen. There is no definite intraperitoneal free air. Workstation ID: [id number] Dictated by: FRAN GRIMALDO on SunMarch 18, 2025 12:39:01 PM EDT Transcribed by: FRAN GRIMALDO on SunMarch 18, 2025 12:39:01 PM EDT Finalized by: FRAN GRIMALDO on SunMarch 18, 2025 12:39:01 PM EDT [facility] Comment on above: Order Comment: Injur y/Trauma or Illness?:Illness/OtherHow long have you had these symptoms (acute/chronic)?:UnknownReason for exam?:eval abd distentionHistory of cancer?:.Surgeries, chemotherapy, or radiation?:.Type of Exam?:UnknownAdditional signs and symptoms?:. XR Chest View and Abdomen [place] and [place] 03-18-2025 GE RIS GE [facility] Radiology Study observation (narrative) [facility] Radiology Study observation (narrative) [facility] XR Chest View and Abdomen [place] and UprightOrdered By: Joel Harper on 03-18-2025 [facility] Work Phone: XR Chest View and Abdomen [place] and UprightOrdered By: Fran Grimaldo on 03-18-2025 [facility] Work Phone: BASIC METABOLIC PANELon 05-2 Anion gap [Moles/Vol] 13 mmol/L Normal 10-20 [facility] Comment on above: Order Comment: Injur y/Trauma or Illness?:Illness/Other How long have you had these symptoms (acute/chronic)?:Unknown Reason for exam?:NG/OG tube placement History of cancer?:. Surgeries, chemotherapy, or radiation?:. Type of Exam?:Initial Additional signs and symptoms?:. Performed By: #### 4 6196 ####[facility] [address] [place] [address] Lew Tim M.D. [id number] Calcium [Mass/Vol] 8.8 mg/dL Normal 8.4-10.2 [facility] Comment on above: Order Comment: Injur y/Trauma or Illness?:Illness/Other How long have you had these symptoms (acute/chronic)?:Unknown Reason for exam?:NG/OG tube placement History of cancer?:. Surgeries, chemotherapy, or radiation?:. Type of Exam?:Initial Additional signs and symptoms?:. Performed By: #### 4 6197 ####[facility] [address] [place], [place] [address] Lew Tim M.D. [id number] Chloride [Moles/Vol] 100 mmol/L Normal 98-108 [facility] Comment on above: Order Comment: Injur y/Trauma or Illness?:Illness/Other How long have you had these symptoms (acute/chronic)?:Unknown Reason for exam?:NG/OG tube placement History of cancer?:. Surgeries, chemotherapy, or radiation?:. Type of Exam?:Initial Additional signs and symptoms?:. Performed By: #### 4 6185 ####[facility] [address] [place], [place] [address] Lew Tim M.D. [id number] Creatinine [Mass/Vol] 0.58 mg/dL Normal 0.40-1.10 [facility] Comment on above: Order Comment: Injur y/Trauma or Illness?:Illness/Other How long have you had these symptoms (acute/chronic)?:Unknown Reason for exam?:NG/OG tube placement History of cancer?:. Surgeries, chemotherapy, or radiation?:. Type of Exam?:Initial Additional signs and symptoms?:. Performed By: #### 4 6191 ####[facility] [address] [place], [place] [address] Lew Tim M.D. [id number] EGFR 104 mL/min/1.73 m2 Normal >=60 [facility] Comment on above: Order Comment: Injur y/Trauma or Illness?:Illness/Other How long have you had these symptoms (acute/chronic)?:Unknown Reason for exam?:NG/OG tube placement History of cancer?:. Surgeries, chemotherapy, or radiation?:. Type of Exam?:Initial Additional signs and symptoms?:. Result Comment: Marce mated GFR was calculated using the 2020 CKD-EPI creatinine equation. Performed By: #### 4 6120 ####[facility] [address] [place], [place] [address] Lew Tim M.D. [id number] Glucose [Mass/Vol] 134 mg/dL High 65-99 [facility] Comment on above: Order Comment: Injur y/Trauma or Illness?:Illness/Other How long have you had these symptoms (acute/chronic)?:Unknown Reason for exam?:NG/OG tube placement History of cancer?:. Surgeries, chemotherapy, or radiation?:. Type of Exam?:Initial Additional signs and symptoms?:. Performed By: #### 4 6195 ####[facility] [address] [place], [place] [address] Lew Tim M.D. [id number] HCO3 (Bld) [Moles/Vol] 24 mmol/L Normal 21-32 [facility] Comment on above: Order Comment: Injur y/Trauma or Illness?:Illness/Other How long have you had these symptoms (acute/chronic)?:Unknown Reason for exam?:NG/OG tube placement History of cancer?:. Surgeries, chemotherapy, or radiation?:. Type of Exam?:Initial Additional signs and symptoms?:. Performed By: #### 4 6192 ####[facility] [address] [place] [address] Lew Tim M.D. [id number] Potassium [Moles/Vol] 4.8 mmol/L Normal 3.5-5.1 [facility] Comment on above: Order Comment: Injur y/Trauma or Illness?:Illness/Other How long have you had these symptoms (acute/chronic)?:Unknown Reason for exam?:NG/OG tube placement History of cancer?:. Surgeries, chemotherapy, or radiation?:. Type of Exam?:Initial Additional signs and symptoms?:. Performed By: #### 4 6196 ####[facility] [address] [place], [place] [address] Lew Tim M.D. [id number] Sodium [Moles/Vol] 132 mmol/L Low 135-145 [facility] Comment on above: Order Comment: Injur y/Trauma or Illness?:Illness/Other How long have you had these symptoms (acute/chronic)?:Unknown Reason for exam?:NG/OG tube placement History of cancer?:. Surgeries, chemotherapy, or radiation?:. Type of Exam?:Initial Additional signs and symptoms?:. Performed By: #### 4 6186 ####[facility] [address] [place], [place] [address] Lew Tim M.D. [id number] Urea nitrogen [Mass/Vol] 10 mg/dL Normal 8-25 [facility] Comment on above: Order Comment: Injur y/Trauma or Illness?:Illness/Other How long have you had these symptoms (acute/chronic)?:Unknown Reason for exam?:NG/OG tube placement History of cancer?:. Surgeries, chemotherapy, or radiation?:. Type of Exam?:Initial Additional signs and symptoms?:. Performed By: #### 4 6198 ####[facility] [address] [place], [place] [address] Lew Tim M.D. [id number] Urea nitrogen/Creatinine [Mass ratio] 17.2 mg/mg Normal 10.0-20.0 [facility] Comment on above: Order Comment: Injur y/Trauma or Illness?:Illness/Other How long have you had these symptoms (acute/chronic)?:Unknown Reason for exam?:NG/OG tube placement History of cancer?:. Surgeries, chemotherapy, or radiation?:. Type of Exam?:Initial Additional signs and symptoms?:. Performed By: #### 4 6142 ####[facility] [address] [place] [address] Lew Tim M.D. [id number] Basic metabolic 2000 panelon 03-17-2025 Anion gap [Moles/Vol] 13 mmol/L 10 - 2 0 mmol/L [facility] Calcium [Mass/Vol] 8.8 mg/dL 8.4 - 10. 2 mg/dL [facility] Chloride [Moles/Vol] 100 mmol/L 98 - 10 8 mmol/L [facility] Creatinine [Mass/Vol] 0.58 mg/dL 0.40 - 1.10 mg/dL [facility] GFR/1.73 sq M.predicted CKD-EPI (S/P/Bld) [Vol rate/Area] 104 - PINF [facility] Glucose [Mass/Vol] 134 mg/dL High 65 - 99 mg/dL [facility] HCO3 [Moles/Vol] 24 mmol/L 21 - 32 mmol/L [facility] Potassium [Moles/Vol] 4.8 mmol/L 3.5 - 5.1 mmol/L [facility] Sodium [Moles/Vol] 132 mmol/L Low 135 - 145 mmol/L [facility] Urea nitrogen [Mass/Vol] 10 mg/dL 8 - 25 mg/dL [facility] Urea nitrogen/Creatinine [Mass ratio] 17.2 mg/mg 10.0 - 20.0 [facility] CBCon 03-17-2025 AUTO NRBC 0.0 % Normal [facility] Comment on above: Performed By: #### 4 6299 #### [facility] [address] [place] [address] Lew Tim M.D. [id number] AUTO NRBC ABS COUNT 0.00 K/mcL Normal 0.00-0.00 [facility] Comment on above: Performed By: #### 4 6246 #### [facility] [address] [place], [place] [address] Lew Tim M.D. [id number] Erythrocyte distribution width (RBC) [Ratio] 17.0 % High 11.6-14.8 [facility] Comment on above: Performed By: #### 4 8532 #### [facility] [address] [place] [address] Lew Tim M.D. [id number] Hematocrit (Bld) [Volume fraction] 37.9 % Normal 36.0-46.0 [facility] Comment on above: Performed By: #### 4 6273 #### [facility] [address] [place], [place] [address] Lew Tim M.D. [id number] Hemoglobin (Bld) [Mass/Vol] 12.2 g/dL Normal 12.0-16.0 [facility] Comment on above: Performed By: #### 4 5979 #### [facility] [address] [place], [place] [address] Lew Tim M.D. [id number] MCH (RBC) [Entitic mass] 31.4 pg Normal 26.0-34.0 [facility] Comment on above: Performed By: #### 4 7921 #### [facility] [address] [place], [place] [address] Lew Tim M.D. [id number] MCV (RBC) [Entitic vol] 97.4 fL Normal 80.0-100.0 [facility] Comment on above: Performed By: #### 3 6983 #### [facility] [address] [place], [place] [address] Lew Tim M.D. [id number] MEAN CORPUSCULAR HEMOGLOBIN CONC 32.2 g/dL Normal 31.0-37.0 [facility] Comment on above: Performed By: #### 4 6299 #### [facility] [address] [place] [address] Lew Tim M.D. [id number] Platelet mean volume (Bld) [Entitic vol] 9.3 fL Low 9.4-12.4 [facility] Comment on above: Performed By: #### 4 6299 #### [facility] [address] [place] [address] Lew Tim M.D. [id number] Platelets (Bld) [#/Vol] 336 10*3/uL Normal 150-400 [facility] Comment on above: Performed By: #### 4 6299 #### [facility] [address] [place] [address] Lew Tim M.D. [id number] RBC (Bld) [#/Vol] 3.89 10*6/uL Low 4.00-5.20 [facility] Comment on above: Performed By: #### 4 6299 #### [facility] [address] [place] [address] Lew Tim M.D. [id number] WBC (Bld) [#/Vol] 12.19 10*3/uL High 4.50-11.00 [facility] Comment on above: Performed By: #### 4 6299 #### [facility] [address] [place] [address] Lew Tim M.D. [id number] CBC panel Auto (Bld)on 03-17 Erythrocyte distribution width (RBC) [Entitic vol] 17 % High 11.6 - 14.8 % [facility] Hematocrit (Bld) [Volume fraction] 37.9 % 36.0 - 46.0 % [facility] Hemoglobin (Bld) [Mass/Vol] 12.2 g/dL 12.0 - 16.0 g/dL [facility] Interpretation and review of laboratory results Abnormal [facility] MCH (RBC) [Entitic mass] 31.4 pg 26.0 - 34.0 pg [facility] MCHC (RBC) [Mass/Vol] 32.2 g/dL 31.0 - 37.0 g/dL [facility] MCV (RBC) [Entitic vol] 97.4 fL 80.0 - 100.0 fL [facility] Nucleated RBC (Bld) [#/Vol] 0 10*3/uL [facility] Nucleated RBC/100 WBC (Bld) [Ratio] 0 % [facility] Platelet mean volume (Bld) [Entitic vol] 9.3 fL Low 9.4 - 12.4 fL [facility] Platelets (Bld) [#/Vol] 336 10*3/uL [facility] RBC (Bld) [#/Vol] 3.89 10*6/uL Low [facility] WBC (Bld) [#/Vol] 12.19 10*3/uL High [facility] ECG 12 Leadon 03-17-2025 Atrial Rate 91 BPM [facility] P [place] 56 degrees [facility] P-R Interval 188 ms [facility] Q-T Interval 372 ms [facility] QRS Duration 80 ms [facility] QTC Calculation (Bezet) 457 ms [facility] R [place] -17 degrees [facility] T [place] 75 degrees [facility] Ventricular Rate 91 BPM [facility] MUSE [facility] Atrial Rate 102 BPM [facility] P [place] 59 degrees [facility] P-R Interval 176 ms [facility] Q-T Interval 368 ms [facility] QRS Duration 76 ms [facility] QTC Calculation (Bezet) 479 ms [facility] R [place] -20 degrees [facility] T [place] 84 degrees [facility] Ventricular Rate 102 BPM [facility] HEPATIC FUNCTION PANELon Albumin [Mass/Vol] 2.6 g/dL Low 3.2-5.2 [facility] Comment on above: Performed By: #### 4 6977 #### [facility] [address] [place] [address] [id number] RMHPOC ALP [Catalytic activity/Vol] 68 U/L Normal 40-150 [facility] Comment on above: Performed By: #### 4 6944 #### [facility] [address] [place] [address] [id number] RMHPOC ALT [Catalytic activity/Vol] 13 U/L Normal 0-35 U/L [facility] Comment on above: Performed By: #### 4 6918 #### [facility] POCT LAB [address] [place] [address] [id number] [facility] AST [Catalytic activity/Vol] 14 U/L Normal 0-35 U/L [facility] Comment on above: Performed By: #### 4 6932 #### [facility] [address] [place] [address] [id number] [facility] Bilirubin [Mass/Vol] 0.9 mg/dL Normal 0.0-1.3 [facility] Comment on above: Performed By: #### 4 6918 #### [facility] [address] [place] [address] [id number] RMHP[facility] Bilirubin.indirect [Mass/Vol] 0.5 mg/dL High 0.0-0.4 [facility] Comment on above: Performed By: #### 4 6969 #### [facility] PO[facility] [address] [place] [address] [id number] RMHPOC Protein [Mass/Vol] 6.5 g/dL Normal 6.0-8.0 [facility] Comment on above: Performed By: #### 4 6909 #### [facility] POCT [facility] [address] [place] [address] [id number] [facility] Hepatic function 2000 panelo n 03-17-2025 Albumin [Mass/Vol] 2.6 g/dL Low 3.2 - 5.2 g/dL [facility] ALP [Catalytic activity/Vol] 68 U/L 40 - 150 U/L [facility] ALT [Catalytic activity/Vol] 13 U/L 0 - 35 U/L [facility] AST [Catalytic activity/Vol] 14 U/L 0 - 35 U/L [facility] Bilirubin [Mass/Vol] 0.9 mg/dL 0.0 - 1 .3 mg/dL [facility] Bilirubin.conjugated [Mass/Vol] 0.5 mg/dL High 0.0 - 0.4 mg/dL [facility] Protein [Mass/Vol] 6.5 g/dL 6.0 - 8.0 g/dL [facility] MAGNESIUM LEVELon 03-17-2025 Magnesium [Mass/Vol] 1.9 mg/dL Normal 1.6-2.4 [facility] Comment on above: Performed By: #### 4 6109 ####[facility] [address] [place] [address] Lew Tim M.D. [id number] Magnesium Levelon 03-17-2025 Magnesium [Mass/Vol] 1.9 mg/dL 1.6 - 2 .4 mg/dL [facility] Magnesium [Mass/Vol]on 03-17 Interpretation and review of laboratory results Normal [facility] No Panel Informationon 03-17 Interpretation and review of laboratory results Abnormal [facility] PHOSPHORUSon 03-17-2025 Phosphate [Mass/Vol] 2.2 mg/dL Low 2.7-4.5 [facility] Comment on above: Performed By: #### 4 6299 #### [facility] [address] [place], [place] [address] Lew Tim M.D. [id number] Phosphoruson 03-17-2025 Phosphate [Mass/Vol] 2.2 mg/dL Low 2.7 - 4 .5 mg/dL [facility] TROPONIN (ONCE)on 03-17-2025 BASELINE TROPONIN T NG/L 15 ng/L Off scale high <=14 [facility] Comment on above: Performed By: #### 4 6299 #### [facility] [address] [place], [place] [address] Lew Tim M.D. [id number] TROPONIN T INTERPRETATION Possible acute cardiac injury. Normal [facility] Comment on above: Performed By: #### 4 6299 #### [facility] [address] [place] [address] Lew Tim M.D. [id number] Troponin (Once)Ordered By: Gypsy Shell on 03-17-2025 Interpretation and review of laboratory results Abnormal [facility] Troponin T 15 ng/L Critically high NINF - 14 ng/L [facility] Troponin T Interpretation Possible acute cardiac injury. [facility] XR ABDOMEN /KUB/FLAT PLATE/1 VIEWon 03-17-2025 XR ABDOMEN /KUB/FLAT PLATE/1 VIEW EXAMINATION: XR ABDOMEN /KUB/FLAT PLATE/1 VIEW 03/17/2025 4:07 AM HISTORY: ORDERING SYSTEM PROVIDED HISTORY: eval gastric distension / ileus, TECHNOLOGIST PROVIDED HISTORY: Illness/Other Reason for exam: eval gastric distension / ileus Cancer History: . Surgery, RadiationHistory: . Encounter Type: Initial Additional signs and symptoms: . ORDERING SYSTEM PROVIDED DIAGNOSIS CODES: K57.20 Diverticulitis of colon with perforation K65.1 Intra-abdominal abscess (HCC) D72.829 Leukocytosis, unspecified type COMPARISON: None. FINDINGS: The stomach is barely distended. The midbody of the stomach measures approximately 2.7 cm. There is gas throughout the abdomen, however the bowel loops seem to be of normal caliber except for probably a loop of bowel in the right midabdomen at the level of L2 measures 3.0 cm. There are surgical nichol extending from L5 through lower pelvis. There is no organomegaly or pneumoperitoneum. IMPRESSION: 1. Probably postoperative ileus or low-grade partial small bowel obstruction. 2. No significant distention of the stomach. [facility] Workstation ID: [id number] Dictated by: MIGUE FOY on SunMarch 17, 2025 7:45:01 AM EDT Transcribed by: DENNIS SCOTT on SunMarch 17, 2025 8:14:41 AM EDT Finalized by: MIGUE FOY on SunMarch 17, 2025 9:02:10 AM EDT Normal [facility] Comment on above: Order Comment: Injur y/Trauma or Illness?:Illness/OtherHow long have you had these symptoms (acute/chronic)?:AcuteReason for exam?:eval gastric distension / ileusHistory of cancer?:.Surgeries, chemotherapy, or radiation?:.Type of Exam?:InitialAdditional signs and symptoms?:. XR Chest View and Abdomen [place] 03-17-2025 [employer] [facility] Radiology Study observation (narrative) [facility] XR Chest View and Abdomen [place] and UprightOrdered By: Migue Foy on 03-17-2025 [facility] Work Phone: ABORH VERIFICATIONon 025 ABO and Rh group Nom (Bld) Blood group A Rh(D) negative [facility] Comment on above: Performed By: #### 4 8787 #### [facility] [address] [address] Mary Taylor MD [id number] [facility] ABO and Rh group Nom (Bld) ABO/Rh Verification [facility] Comment on above: Result Comment: Clotilde ent's ABO/Rh is verified. Performed By: #### 4 8796 #### [facility] [address] [address] Mary Taylor MD [id number] [facility] ABORH Verificationon 025 ABO and Rh group Nom (Bld) Blood group A Rh(D) negative [facility] ABO and Rh group Nom (Bld) ABO/Rh Verification [facility] Abdomen/Pelvis W IV Cont ONL Yon 03-16-2025 Abdomen/Pelvis W IV Cont ONLY [facility] Imaging Services [address] [place] [address] [id number] Abdomen/Pelvis W IV Cont ONLY MR#: [id number] Acct: [id number] Name: JOSE LIND Rep #: [id number] : 1965 F 59 From: Lavinia Barron MD PCP: Dr. Rosibel Godfrey MD Status: REG ER Study: Abdomen/Pelvis W IV Cont ONLY Date of Exam: Exam# [id number] Ordering Dr: Jeff Abrams DO PROCEDURE: ABDOMEN/PELVIS W IV CONT ONLY 03/16/2025 REASON FOR EXAM: DIVERTICULITIS TECHNIQUE: Abdomen and pelvis CT with intravenous contrast. Coronal and Sagittal reconstruction series were provided. PATIENT PREPARATION: Per protocol ORAL CONTRAST TYPE: None. CONTRAST: 99 cc Isovue 370 IV One or more dose reduction techniques were used (e.g., Automated exposure control, adjustment of the mA and/or kV according to patient size, use of iterative reconstruction technique. RADIATION DOSE SUMMARY: CTDlvol: 16.94 mGy DLP: 1040.68 mGycm COMPARISON: None available FINDINGS: Bibasilar dependent atelectasis. A couple incidental hepatic cysts. The liver, adrenal glands, gallbladder, kidneys, pancreas and spleen appear within limits. Abdominal aorta appears within limits. Aortoiliac atherosclerotic calcification noted. No adenopathy. Segment of sigmoid colon within the left pelvis with wall thickening and edema consistent with history of diverticulitis. Extraluminal pelvic C-shaped collection measuring approximately 9.5 x 3.5 cm with bubbly material, extraluminal air and fluid with adjacent peritoneal enhancement and fat stranding, edema consistent with perforation. Scattered areas of free air throughout the abdomen and pelvis with collection beneath the right hemidiaphragm of air. Mildly prominent small bowel loop in the left lower abdomen suggests focal ileus. Normal caliber appendix. Mostly collapsed bladder appears within limits. Difficult to exclude possible small fundal uterine fibroid posteriorly. Lower lumbar facet degenerative changes. CT/Abdomen/Pelvis W IV Cont ONLY IMPRESSION: Findings are consistent with acute sigmoid diverticulitis with kay perforation and pelvic phlegmon and pneumoperitoneum as described above. Findings discussed verbally by myself with Dr. Abrams at 5:20 a.m. 03/16/2025 Reading Location: [facility] CC: Dr. Rosibel Godfrey MD; Dr. Jeff Abrams DO Door Puller: Signed Normal [facility] Absolute lymphocyte countOrd ered By: Jeff Abrams on 03-16-2025 Lymphocytes Auto (Unsp spec) [#/Vol] 0.74 10*3/uL Low 0.83-4.51 [facility] Absolute neutrophil countOrd ered By: Jeff Abrasm on 03-16-2025 Neutrophils (Bld) [#/Vol] 14.0 10*3/uL High 2.0-7.7 [facility] Anion gap in Serum or Plasma Ordered By: Jeff Abrams on 03-16-2025 Anion gap [Moles/Vol] 15 mmol/L 5-15 [facility] Automated lymphocyte count a s percentage of total leukocytesOrdered By: Jeff Abrams on 03-16-2025 Lymphocytes/100 WBC Auto (Unsp spec) 4.7 % Low 19-41 [facility] BASIC METABOLIC PANELon 02-20 Anion gap [Moles/Vol] 16 mmol/L Normal 10-20 [facility] Comment on above: Order Comment: Injur y/Trauma or Illness?:Illness/Other How long have you had these symptoms (acute/chronic)?:Unknown Reason for exam?:Heart failure, known or suspected, initial workup Type of Exam?:Ongoing Additional signs and symptoms?:n/a Performed By: #### 4 6124 ####[facility] [address] [place], [place] [address] Lew Tim M.D. [id number] Calcium [Mass/Vol] 9.2 mg/dL Normal 8.4-10.2 [facility] Comment on above: Order Comment: Injur y/Trauma or Illness?:Illness/Other How long have you had these symptoms (acute/chronic)?:Unknown Reason for exam?:Heart failure, known or suspected, initial workup Type of Exam?:Ongoing Additional signs and symptoms?:n/a Performed By: #### 4 6124 ####[facility] [address] [place], [place] [address] Lew Tim M.D. [id number] Chloride [Moles/Vol] 101 mmol/L Normal 98-108 [facility] Comment on above: Order Comment: Injur y/Trauma or Illness?:Illness/Other How long have you had these symptoms (acute/chronic)?:Unknown Reason for exam?:Heart failure, known or suspected, initial workup Type of Exam?:Ongoing Additional signs and symptoms?:n/a Performed By: #### 4 6138 ####[facility] [address] [place], [place] [address] Lew Tim M.D. [id number] Creatinine [Mass/Vol] 0.73 mg/dL Normal 0.40-1.10 [facility] Comment on above: Order Comment: Injur y/Trauma or Illness?:Illness/Other How long have you had these symptoms (acute/chronic)?:Unknown Reason for exam?:Heart failure, known or suspected, initial workup Type of Exam?:Ongoing Additional signs and symptoms?:n/a Performed By: #### 4 6116 ####[facility] [address] [place], [place] [address] Lew Tim M.D. [id number] EGFR 94 mL/min/1.73 m2 Normal >=60 [facility] Comment on above: Order Comment: Injur y/Trauma or Illness?:Illness/Other How long have you had these symptoms (acute/chronic)?:Unknown Reason for exam?:Heart failure, known or suspected, initial workup Type of Exam?:Ongoing Additional signs and symptoms?:n/a Result Comment: Marce mated GFR was calculated using the 2020 CKD-EPI creatinine equation. Performed By: #### 4 6124 ####[facility] [address] [place], [place] [address] Lew Tim M.D. [id number] Glucose [Mass/Vol] 115 mg/dL High 65-99 [facility] Comment on above: Order Comment: Injur y/Trauma or Illness?:Illness/Other How long have you had these symptoms (acute/chronic)?:Unknown Reason for exam?:Heart failure, known or suspected, initial workup Type of Exam?:Ongoing Additional signs and symptoms?:n/a Performed By: #### 4 6124 ####[facility] [address] [place], [place] [address] Lew Tim M.D. [id number] HCO3 (Bld) [Moles/Vol] 24 mmol/L Normal 21-32 [facility] Comment on above: Order Comment: Injur y/Trauma or Illness?:Illness/Other How long have you had these symptoms (acute/chronic)?:Unknown Reason for exam?:Heart failure, known or suspected, initial workup Type of Exam?:Ongoing Additional signs and symptoms?:n/a Performed By: #### 4 6107 ####[facility] [address] [place], [place] [address] Lew Tim M.D. [id number] Potassium [Moles/Vol] 4.2 mmol/L Normal 3.5-5.1 [facility] Comment on above: Order Comment: Injur y/Trauma or Illness?:Illness/Other How long have you had these symptoms (acute/chronic)?:Unknown Reason for exam?:Heart failure, known or suspected, initial workup Type of Exam?:Ongoing Additional signs and symptoms?:n/a Performed By: #### 4 6124 ####[facility] [address] [place] [address] Lew Tim M.D. [id number] Sodium [Moles/Vol] 137 mmol/L Normal 135-145 [facility] Comment on above: Order Comment: Injur y/Trauma or Illness?:Illness/Other How long have you had these symptoms (acute/chronic)?:Unknown Reason for exam?:Heart failure, known or suspected, initial workup Type of Exam?:Ongoing Additional signs and symptoms?:n/a Performed By: #### 4 6124 ####[facility] [address] [place] [address] Lew Tim M.D. [id number] Urea nitrogen [Mass/Vol] 11 mg/dL Normal 8-25 [facility] Comment on above: Order Comment: Injur y/Trauma or Illness?:Illness/Other How long have you had these symptoms (acute/chronic)?:Unknown Reason for exam?:Heart failure, known or suspected, initial workup Type of Exam?:Ongoing Additional signs and symptoms?:n/a Performed By: #### 4 6124 ####[facility] [address] [place] [address] Lew Tim M.D. [id number] Urea nitrogen/Creatinine [Mass ratio] 15.1 mg/mg Normal 10.0-20.0 [facility] Comment on above: Order Comment: Injur y/Trauma or Illness?:Illness/Other How long have you had these symptoms (acute/chronic)?:Unknown Reason for exam?:Heart failure, known or suspected, initial workup Type of Exam?:Ongoing Additional signs and symptoms?:n/a Performed By: #### 4 6124 ####[facility] [address] [address] Lew Tim M.D. [id number] BUN/creatinine ratioOrdered By: Jeff Abrams on 03-16-2025 Urea nitrogen/Creatinine [Mass ratio] 18.3 mg/mg 08-10 [facility] Basic Metabolic Profile (BMP )on 03-16-2025 BUN/CRE 18.3 RATIO Normal 08-10 [facility] Comment on above: Performed By: #### L 501.2450, L500.2500, L100.0100, L500.3400 #### [facility] Laboratory [address] [place], [address] Calcium [Mass/Vol] 9.4 mg/dL Normal 7.6-11.0 [facility] Comment on above: Performed By: #### L 501.2450, L500.2500, L100.0100, L500.3400 #### [facility] [address] [place], [address] Chloride [Moles/Vol] 98 mmol/L Normal 98-108 [facility] Comment on above: Performed By: #### L 501.2450, L500.2500, L100.0100, L500.3400 #### [facility] [address] [place], [address] CO2 [Moles/Vol] 20.9 mmol/L Low 21.0-32.0 [facility] Comment on above: Performed By: #### L 501.2450, L500.2500, L100.0100, L500.3400 #### [facility] [address] [place], [address] Creatinine [Mass/Vol] 0.70 mg/dL Normal 0.70-1.20 [facility] Comment on above: Performed By: #### L 501.2450, L500.2500, L100.0100, L500.3400 #### [facility] [address] [place], [address] ECRCL 92.42 ml/min Normal 50-250 [facility] Comment on above: Performed By: #### L 501.2450, L500.2500, L100.0100, L500.3400 #### [facility] [address] [place], [address] GAP 15 Normal 5-15 [facility] Comment on above: Performed By: #### L 501.2450, L500.2500, L100.0100, L500.3400 #### [facility] [address] [place], [address] GFR/1.73 sq M.predicted among non-blacks MDRD (S/P/Bld) [Vol rate/Area] 98 mL/min/{1.73_m2} Normal >60 [facility] Comment on above: Result Comment: mL/m in/1.73m2 CKD-EPI Creatinine Equation (2020) Performed By: #### L 501.2450, L500.2500, L100.0100, L500.3400 #### [facility] [address] [place], [address] Glucose [Mass/Vol] 137 mg/dL High 70-99 [facility] Comment on above: Performed By: #### L 501.2450, L500.2500, L100.0100, L500.3400 #### [facility] [address] [place], [address] Potassium [Moles/Vol] 4.0 mmol/L Normal 3.3-5.1 [facility] Comment on above: Performed By: #### L 501.2450, L500.2500, L100.0100, L500.3400 #### [facility] [address] [place], [address] Sodium [Moles/Vol] 133 mmol/L Normal 133-145 [facility] Comment on above: Performed By: #### L 501.2450, L500.2500, L100.0100, L500.3400 #### [facility] [address] [place], [address] Urea nitrogen [Mass/Vol] 13 mg/dL Normal 4-19 [facility] Comment on above: Performed By: #### L 501.2450, L500.2500, L100.0100, L500.3400 #### [facility] [address] [place], [address] Basic metabolic 2000 panelOr dered By: Savanna Estrella on 03-16-2025 Anion gap [Moles/Vol] 16 mmol/L 10 - 2 0 mmol/L [facility] Calcium [Mass/Vol] 9.2 mg/dL 8.4 - 10. 2 mg/dL [facility] Chloride [Moles/Vol] 101 mmol/L 98 - 10 8 mmol/L [facility] Creatinine [Mass/Vol] 0.73 mg/dL 0.40 - 1.10 mg/dL [facility] GFR/1.73 sq M.predicted CKD-EPI (S/P/Bld) [Vol rate/Area] 94 - PINF [facility] Glucose [Mass/Vol] 115 mg/dL High 65 - 99 mg/dL [facility] HCO3 [Moles/Vol] 24 mmol/L 21 - 32 mmol/L [facility] Interpretation and review of laboratory results Abnormal [facility] Potassium [Moles/Vol] 4.2 mmol/L 3.5 - 5.1 mmol/L [facility] Sodium [Moles/Vol] 137 mmol/L 135 - 145 mmol/L [facility] Urea nitrogen [Mass/Vol] 11 mg/dL 8 - 25 mg/dL [facility] Urea nitrogen/Creatinine [Mass ratio] 15.1 mg/mg 10.0 - 20.0 [facility] Basophil percentageOrdered B y: Jeff Abrams on 03-16-2025 Basophils/100 WBC (Bld) 0.3 % 0-1 [facility] Bilirubin Test strip Ql (U)O rdered By: Jeff Abrams on 03-16-2025 Bilirubin Ql (U) 1 mg/dL High Negative [facility] Comment on above: COLOR OF URINE MAY A FFECT DIPSTICK RESULTS. Bilirubin directOrdered By: Jeff Abrams on 03-16-2025 Bilirubin.direct [Mass/Vol] 0.49 mg/dL High 0.00-0.30 [facility] Bilirubin, totalOrdered By: Jeff Abrams on 03-16-2025 Bilirubin [Mass/Vol] 0.99 mg/dL 0.00-1.30 [facility] Blood type and Indirect anti body screen panel (Bld)on 03-16-2025 ABO and Rh group Nom (Bld) Blood group A Rh(D) negative [facility] Blood group antibody screen Ql Negative [facility] Specimen Expires 03/19/2025 23:59 EST [facility] CBC Auto Differentialon 02-20 Basophils (Bld) [#/Vol] 0.02 10*3/uL [facility] Basophils/100 WBC (Bld) 0.1 % [facility] Eosinophils (Bld) [#/Vol] 0.01 10*3/uL [facility] Eosinophils/100 WBC (Bld) 0.1 % [facility] Erythrocyte distribution width (RBC) [Entitic vol] 17 % High 11.6 - 14.8 % [facility] Hematocrit (Bld) [Volume fraction] 41 % 36.0 - 46.0 % [facility] Hemoglobin (Bld) [Mass/Vol] 13.2 g/dL 12.0 - 16.0 g/dL [facility] Immature granulocytes (Bld) [#/Vol] 0.04 10*3/uL [facility] Immature granulocytes/100 WBC (Bld) 0.3 % [facility] Interpretation and review of laboratory results Abnormal [facility] Lymphocytes (Bld) [#/Vol] 0.98 10*3/uL [facility] Lymphocytes/100 WBC (Bld) 6.8 % [facility] MCH (RBC) [Entitic mass] 31.4 pg 26.0 - 34.0 pg [facility] MCHC (RBC) [Mass/Vol] 32.2 g/dL 31.0 - 37.0 g/dL [facility] MCV (RBC) [Entitic vol] 97.4 fL 80.0 - 100.0 fL [facility] Monocytes (Bld) [#/Vol] 0.66 10*3/uL [facility] Monocytes/100 WBC (Bld) 4.6 % [facility] Neutrophils (Bld) [#/Vol] 12.63 10*3/uL High [facility] Neutrophils/100 WBC (Bld) 88.1 % [facility] Nucleated RBC (Bld) [#/Vol] 0 10*3/uL [facility] Nucleated RBC/100 WBC (Bld) [Ratio] 0 % [facility] Platelet mean volume (Bld) [Entitic vol] 9.1 fL Low 9.4 - 12.4 fL [facility] Platelets (Bld) [#/Vol] 393 10*3/uL [facility] RBC (Bld) [#/Vol] 4.21 10*6/uL [facility] ealt WBC (Bld) [#/Vol] 14.34 10*3/uL [facility] CBC W/Diff, Automatedon 05-2 -2024 Absolute Lymph 0.74 X10 3/uL Low 0.83-4.51 [facility] Comment on above: Performed By: #### L 501.2450, L500.2500, L100.0100, L500.3400 #### [facility] [address] [place], [address] Absolute Neut 14.0 X10 3/uL High 2.0-7.7 [facility] Comment on above: Performed By: #### L 501.2450, L500.2500, L100.0100, L500.3400 #### [facility] [address] [place], [address] Basophils/100 WBC (Bld) 0.3 % Normal 0-1 [facility] Comment on above: Performed By: #### L 501.2450, L500.2500, L100.0100, L500.3400 #### [facility] [address] [place], [address] Eosinophils/100 WBC (Bld) 0.1 % Normal 0-5 [facility] Comment on above: Performed By: #### L 501.2450, L500.2500, L100.0100, L500.3400 #### [facility] [address] [place], [address] Erythrocyte distribution width (RBC) [Ratio] 16.8 % High 11.6-14.6 [facility] Comment on above: Performed By: #### L 501.2450, L500.2500, L100.0100, L500.3400 #### [facility] [address] [place], [address] Hematocrit (Bld) [Volume fraction] 42.3 % Normal 37-47 [facility] Comment on above: Performed By: #### L 501.2450, L500.2500, L100.0100, L500.3400 #### [facility] [address] [place], [address] Hemoglobin (Bld) [Mass/Vol] 14.3 g/dL Normal 12.0-15.0 [facility] Comment on above: Performed By: #### L 501.2450, L500.2500, L100.0100, L500.3400 #### [facility] [address] [place], [address] IG% 0.600 Normal 0.0-0.9 [facility] Comment on above: Result Comment: IG% - Immature Granulocytes (promyelocytes, myelocytes and metamyelocytes) > 1% indicates that a LEFT SHIFT is Present. Performed By: #### L 501.2450, L500.2500, L100.0100, L500.3400 #### [facility] [address] [place], [address] Lymphocytes/100 WBC (Bld) 4.7 % Low 19-41 [facility] Comment on above: Performed By: #### L 501.2450, L500.2500, L100.0100, L500.3400 #### [facility] [address] [place], [address] MCH (RBC) [Entitic mass] 31.8 pg Normal 27.0-32.0 [facility] Comment on above: Performed By: #### L 501.2450, L500.2500, L100.0100, L500.3400 #### [facility] [address] [place], [address] MCHC (RBC) [Mass/Vol] 33.8 g/dL Normal 32-36 [facility] Comment on above: Performed By: #### L 501.2450, L500.2500, L100.0100, L500.3400 #### [facility] [address] [place], [address] MCV (RBC) [Entitic vol] 94.0 fL Normal 81-99 [facility] Comment on above: Performed By: #### L 501.2450, L500.2500, L100.0100, L500.3400 #### [facility] [address] [place], [address] Monocytes/100 WBC (Bld) 5.0 % Normal 0-10 [facility] Comment on above: Performed By: #### L 501.2450, L500.2500, L100.0100, L500.3400 #### [facility] [address] [place], [address] Neutrophils/100 WBC (Bld) 89.3 % High 47-70 [facility] Comment on above: Performed By: #### L 501.2450, L500.2500, L100.0100, L500.3400 #### [facility] [address] [place], [address] Nucleated RBC (Bld) [#/Vol] 0 10*3/uL Normal 0-5 [facility] Comment on above: Performed By: #### L 501.2450, L500.2500, L100.0100, L500.3400 #### [facility] [address] [place], [address] Platelet mean volume (Bld) [Entitic vol] 9.0 fL Normal 6.2-12.0 [facility] Comment on above: Performed By: #### L 501.2450, L500.2500, L100.0100, L500.3400 #### [facility] [address] [place], [address] Platelets (Bld) [#/Vol] 424 10*3/uL Normal 150-450 [facility] Comment on above: Performed By: #### L 501.2450, L500.2500, L100.0100, L500.3400 #### [facility] [address] [place], [address] RBC (Bld) [#/Vol] 4.50 10*6/uL Normal 4.2-5.4 [facility] Comment on above: Performed By: #### L 501.2450, L500.2500, L100.0100, L500.3400 #### [facility] [address] [place], [address] RDW SD 57.5 fl High 35.1-43.9 [facility] Comment on above: Performed By: #### L 501.2450, L500.2500, L100.0100, L500.3400 #### [facility] [address] [place], [address] WBC (Bld) [#/Vol] 15.7 10*3/uL High 4.4-11.0 [facility] Comment on above: Performed By: #### L 501.2450, L500.2500, L100.0100, L500.3400 #### [facility] [address] [place], [address] CBC WITH AUTO DIFFERENTIALon 05-26-2025 AUTO NRBC 0.0 % Normal [facility] Comment on above: Performed By: #### L [id number] #### [facility] [address] [place] [address] Lew Tim M.D. [id number] AUTO NRBC ABS COUNT 0.00 K/mcL Normal 0.00-0.00 [facility] Comment on above: Performed By: #### Sherwin [id number] #### [facility] [address] [place] [address] Lew Tim M.D. [id number] BASOPHILS ABSOLUTE COUNT 0.02 K/mcL Normal 0.00-0.30 [facility] Comment on above: Performed By: #### Sherwin [id number] #### [facility] [address] [place] [address] Lew Tim M.D. [id number] Basophils/100 WBC (Bld) 0.1 % Normal [facility] Comment on above: Performed By: #### Sherwin [id number] #### [facility] [address] [place], [place] [address] Lew Tim M.D. [id number] Eosinophils (Bld) [#/Vol] 0.01 10*3/uL Normal 0.00-0.50 [facility] Comment on above: Performed By: #### Sherwin [id number] #### [facility] [address] [place], [place] [address] Lew Tim M.D. [id number] Eosinophils/100 WBC (Bld) 0.1 % Normal [facility] Comment on above: Performed By: #### L [id number] #### [facility] [address] [place], [place] [address] Lew Tim M.D. [id number] Erythrocyte distribution width (RBC) [Ratio] 17.0 % High 11.6-14.8 [facility] Comment on above: Performed By: #### L [id number] #### [facility] [address] [place] [address] Lew Tim M.D. [id number] Hematocrit (Bld) [Volume fraction] 41.0 % Normal 36.0-46.0 [facility] Comment on above: Performed By: #### L [id number] #### [facility] [address] [place] [address] Lew Tim M.D. [id number] Hemoglobin (Bld) [Mass/Vol] 13.2 g/dL Normal 12.0-16.0 [facility] Comment on above: Performed By: #### L [id number] #### [facility] [address] [place] [address] Lew Tim M.D. [id number] IG ABSOLUTE 0.04 K/mcL Normal 0.00-0.30 [facility] Comment on above: Performed By: #### L [id number] #### [facility] [address] [place] [address] Lew Tim M.D. [id number] IG PERCENT 0.30 % Normal [facility] Comment on above: Result Comment: The IG parameter is the percentage of metamyelocytes, myelocytes and promyelocytes. An immature granulocyte count (IG) of 1% or more suggests the possibility of infection, an IG count of 3% is very likely related to an infection. Performed By: #### L [id number] #### [facility] [address] [place] [address] Lew Tim M.D. [id number] Lymphocytes (Bld) [#/Vol] 0.98 10*3/uL Normal 0.90-4.00 [facility] Comment on above: Performed By: #### L [id number] #### [facility] [address] [place] [address] Lew Tim M.D. [id number] Lymphocytes/100 WBC (Bld) 6.8 % Normal [facility] Comment on above: Performed By: #### Sherwin [id number] #### [facility] [address] [place] [address] Lew Tim M.D. [id number] MCH (RBC) [Entitic mass] 31.4 pg Normal 26.0-34.0 [facility] Comment on above: Performed By: #### Sherwin [id number] #### [facility] [address] [place] [address] Lew Tim M.D. [id number] MCV (RBC) [Entitic vol] 97.4 fL Normal 80.0-100.0 [facility] Comment on above: Performed By: #### Sherwin [id number] #### [facility] [address] [place] [address] Lew Tim M.D. [id number] MEAN CORPUSCULAR HEMOGLOBIN CONC 32.2 g/dL Normal 31.0-37.0 [facility] Comment on above: Performed By: #### Sherwin [id number] #### [facility] [address] [place], [place] [address]Clifford Tim M.D. [id number] Monocytes (Bld) [#/Vol] 0.66 10*3/uL Normal 0.30-0.90 [facility] Comment on above: Performed By: #### Sherwin [id number] #### [facility] [address] [place] [address] Lew Tim M.D. [id number] Monocytes/100 WBC (Bld) 4.6 % Normal [facility] Comment on above: Performed By: #### Sherwin [id number] #### [facility] [address] [place], [place] [address]Clifford Tim M.D. [id number] NEUTROPHILS ABSOLUTE COUNT 12.63 K/mcL High 1.70-7.00 [facility] Comment on above: Performed By: #### Sherwin [id number] #### [facility] [address] [place], [place] [address] Lew Tim M.D. [id number] Neutrophils/100 WBC (Bld) 88.1 % Normal [facility] Comment on above: Performed By: #### Sherwin [id number] #### [facility] [address] [place] [address] Lew Tim M.D. [id number] Platelet mean volume (Bld) [Entitic vol] 9.1 fL Low 9.4-12.4 [facility] Comment on above: Performed By: #### Sherwin [id number] #### [facility] [address] [place], [place] [address] Lew Tim M.D. [id number] Platelets (Bld) [#/Vol] 393 10*3/uL Normal 150-400 [facility] Comment on above: Performed By: #### Sherwin [id number] #### [facility] [address] [place], [place] [address] Lew Tim M.D. [id number] RBC (Bld) [#/Vol] 4.21 10*6/uL Normal 4.00-5.20 [facility] Comment on above: Performed By: #### L [id number] #### [facility] [address] [place], [place] [address] Lew Tim M.D. [id number] WBC (Bld) [#/Vol] 14.34 10*3/uL High 4.50-11.00 [facility] Comment on above: Performed By: #### L [id number] #### [facility] [address] [place], [place] [address] Lew Tim M.D. [id number] CONSULTon 03-16-2025 CONSULT - Attestation signed by Dilia Leonardo DO at 03/16/2025 4:18 PM I saw and examined Jose Lind independently reviewing labs, imaging and garden consultant notes (if available). I was physically present for the browning portions of the services provided and completed a substantive exam as detailed below. I agree with Jt Nesbitt PA-C documentation as below- with the following additions and exceptions: Jose Lind is a 59 y.o. female with PMHx of diverticulosis and diverticulitis who presented on 03/16/2025 as transfer from OSH where she presented with several days of lower abd pain found to have perforated diverticulitis. Transferred for GS eval. nextsocial consulted for medical management and preoperative eval. Patient states pain started 5 to 6 days ago. Lower abdomen. It was coming and going and then acutely worsened on Sunday which was much more severe. She was mildly nauseated. She reports history of diverticulitis treated with antibiotics. Of note she did have a colonoscopy recently but does not seem like it was complete colonoscopy. She has mild fevers and chills. She is overall fairly healthy. She denies any chest pain shortness of breath. She denies a history of stroke chronic kidney disease diabetes and no significant cardiac or pulmonary history. She is very active at baseline without any anginal concerns. Personally reviewed labs: Mild leukocytosis of 14 platelets normal hemoglobin normal. Lactic acid is 1.3. She has normal renal function Personally reviewed imaging: CT images from outside hospital notable for diverticulitis with free air throughout the abdomen with phlegmon near the sigmoid colon. Physical: AOx3. NAD, resting comfortably in bed. RRR, CTA B/l. Abd soft with diffuse tenderness lower abdomen right around the periumbilical area. Mild rebound, and peritoneal on exam. MSK WNL. Neurovascularly intact. A/P: Patient presenting with suspected perforated sigmoid diverticulitis with concerning abdominal exam. She is admitted to the general surgery team and they are planning on OR this evening. While this would considered a urgent emergent procedure she is fairly healthy at baseline and does not require further workup prior to her operation. Other medical problems are at baseline. Continue IV antibiotics. We will continue to follow. Appreciate the consult, please call with questions. Dilia Leonardo DO [facility] Hospitalist For direct communication please utilize secure chat or physician directory for cell phone number [facility] Consult Note 03/16/25 Jose Lind 1965 [id number] Assessment/Plan: Jose Lind is a 59 y.o. female with a history of diverticulosis who presented to [place] ED for abdominal pain, distention, found to have diverticulitis with perforation and phlegmon. [facility]25 for general surgery evaluation. Martine consulted for medical management Diverticulitis with Perforation: With acute onset of abdominal pain 03/15/25. AT [facility]: CT A/p showed acute sigmoid diverticulitis with perforation, pelvic phlegmon, and pneumoperitoneum. Continued Zosyn. Plan for ex-lap with possible bowel resection and ostomy 03/16/25. General surgery surgery primary Preoperative evaluation: George Revised Cardiac Index Risk Factors: High risk surgery . At home, patient able to complete < 4 METS as evidenced by inability to climb two flights of stairs without CP or dyspnea. Chronic medical conditions that increase perioperative risk not captured with RCRI include: none. On physical exam, patient does not demonstrate any evidence of clinically significant cardiac murmur, ACS or congestive heart failure. Most recent cardiac testing: ECG 03/16/25 sinus tach rate of 102 BPM, non specific T wave changes. After chart review and discussion with patient, qualifies for Intermediate Risk ( 1-2 RCRI with poor functional status). We will measure NT-proBNP, and if >200 would qualify as higher risk and would recommend monitoring troponin POD #1 and POD #2 to capture MACE/MINS. . Further cardiac testing will not reduce patients risk and okay to proceed without further testing. Final decision to take patient to OR left to risk/benefit decision making of surgical team. Code status: Full DVT Prophylaxis: Lovenox per primary Thank you for allowing us to participate in the care of your patient. For any questions, please call the number of the covering hospitalist listed under the treatment team in care connect. Medication Reconciliation: Reviewed using Per patient, at bedside, patient takes no home medications Current living situation: Home Expected Disposition: Home Estimated discharge date: TBD Medically Ready for Discharge: no as above ___ Chief Complaint / Reason for Consult: (more content not included)... Normal [facility] CT Comparison Importon 03-16 GE RIS Carbon dioxide, total [Moles /volume] in Central venous bloodOrdered By: Jeff Abrams on 03-16-2025 CO2 [Moles/Vol] 20.9 mmol/L Low 21.0-32.0 [facility] Chloride assayOrdered By: Ignacio Abrams on 03-16-2025 Chloride [Moles/Vol] 98 mmol/L 98-108 [facility] Consultation - Surgicalon Consultation - Surgical [facility] Medical Records Department [address] [place] [address] Consultation - Surgical 03/16/25 0716 MR#: [id number] Acct: [id number] Name: JOSE LIND Rep #: [id number] : 1965 59 From: Pedro Franklin MD PCP: Dr. Rosibel Godfrey MD Status:REG ER Location: ED Assessment Plan Assessment/Plan (1) Perforation of sigmoid colon due to diverticulitis: PLAN: The patient presents with 24 hours of abdominal pain. CT scan revealed perforation of diverticulitis of the sigmoid. I reviewed the patient's CT scan. Her diverticulitis appears to be very low in the pelvis. The inflammation is almost all below the sacral promontory. This is very low in the pelvis and given that it is a holiday I have no urology coverage and I do not have colorectal surgery here at this hospital. I would like to transfer the patient. I reached out to [facility] who accepted the patient. Patient will be transferred to [facility] as per her request. Pedro Franklin MD Pager: [facility] [address] [place] [address] [address], [address] [place] [address] Office: HPI Consult Data Date of Consult: 03/16/25 HPI Narrative HPI Narrative: JOSE LIND, is a 59 F who presents with abdominal pain of 24 hours. She denies fevers or chills. She reports the pain is low in her abdomen but then it became more diffuse. She does have a history of diverticulitis in the past. She was not hospitalized for this. She had a colonoscopy last year which was difficult due to tortuosity from the diverticulitis. [facility] Medical History Colitis Wears glasses Post-menopausal Alcohol use Easy bruising Former smoker Shortness of breath on exertion History of stress test Menorrhagia History of colon polyps Home Medications ???Medication ???Instructions ???Recorded ???Last Taken ???Type loratadine 10 mg tablet 10 mg PO DAILY PRN allergy symptom s 08/23/23 Unknown History naproxen sodium 220 mg tablet 220 mg PO BID PRN pain 08/23/23 Un known History (Aleve) Allergy/AdvReac Type Severity Reaction Status Date / Time No Known Allergies Allergy Verified 12/22/24 09:55 Family History Grandmother Breast cancer Brother Myocardial infarction Father Myocardial infarction Hypertension Heart disease Brother Cancer lymphoma Mother CVA (cerebral vascular accident) Surgical History Hx of colonoscopy History of hysteroscopy Status post breast reduction Social History household members: spouse current occupational status: employed 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 [employer] Smoking Status: Former smoker quit date: 10/22/20 pack-years: 20 Electronic Cigarette Use: not used alcohol intake: current alcohol intake frequency: holidays/special occasions only substance use type: does not use do you feel safe at home: Yes ROS Constitutional Constitutional: Denies anorexia, chills, fatigue or fever(s) Eyes Eyes: Denies blurry vision ENT HEENT: Denies abnormal hearing Cardiovascular Cardiovascular: Denies chest pain Respiratory/Chest Respiratory/Chest: Denies cough or dyspnea Gastrointestinal Gastrointestinal: Reports abdominal pain, bloating and constipation; Denies nausea or vomiting Genitourinary Genitourinary: Denies change in urinary stream Musculoskeletal Musculoskeletal: Denies abnormal gait Integumentary Integumentary: Denies jaundice or new lesions Neurologic Neurologic: Denies abnormal gait Psychiatric Psychiatric: Denies anxiety Endocrine Endocrinology: Denies flushing Physical Exam Const alert and oriented x3 HEENT normocephalic Eyes PERRL Cardio Rate: regular rate Rhythm: regular rhythm GI soft to palpation Inspection: abdominal distention Palpation: tender Lab / Micro Data 03/16/25 03:45 03/16/25 03:45 Labs: Laboratory Results - last 24 hr 03/16/25 03:45: WBC 15.7 H, RBC 4.50, Hgb 14.3, Hct 42.3, MCV 94.0, MCH 31.8, MCHC 33.8, RDW Std Deviation 57.5 H, RDW Coeff of Laura 16.8 H, Plt Count 424, MPV 9.0, Immature Gran % (Auto) 0.600, N eut % (Auto) 89.3 H, Lymph % (Auto) 4.7 L, Gallia % (Auto) 5.0, Eos % (Auto) 0.1, Baso % (Auto) 0.3, A bsolute Neuts (auto) 14.0 H, Absolute Lymphs (auto) 0.74 L, Nucleated RBC % 0, Sodium 133, Potassium 4.0, Chloride 98, Carbon Dioxide 20.9 L, Anion Gap 15, BUN 13, Creatinine 0.70, Estim Creat Clear Calc 92.42, Est GFR (MDRD) Non-Af 98, BUN/Creatinine Ratio 18.3, Glucose 137 H, Calcium 9.4, Total Bilirubin 0.99, Direct Bilirubin 0.49 H, AST 19, ALT 14, Alkaline Phosphata (more content not included)... Normal [facility] ED Prov Noteon 03-16-2025 ED Prov Note PCP: Shaina Physician Chief Complaint Patient presents with Abnormal Results Abdominal Pain HPI: This patient is a 59 y.o. female who presents to the ER today as a transfer from [place] ED with concerns of diverticulitis with pelvic abscess and perforation. She has a history of diverticulitis most recent episode in December of this year. She states last week she was having a cough URI type symptoms with increasing fevers abdominal pain nausea vomiting yesterday. Outlying facility found patient to have diverticulitis with pelvic abscess, bowel perforation and large amount of free air by report. Patient images not available for review request the ED staff to have images pushed through from outlying facility. Repeat dosing of fluids pain medication nausea medications and antibiotics ordered. REVIEW OF SYSTEMS: Review of Systems Constitutional: Positive for chills and fever. Negative for diaphoresis and fatigue. Respiratory: Negative for chest tightness and shortness of breath. Cardiovascular: Negative for chest pain. Gastrointestinal: Positive for abdominal pain, nausea and vomiting. Endocrine: Negative for polydipsia, polyphagia and polyuria. Musculoskeletal: Positive for myalgias. Negative for back pain, neck pain and neck stiffness. Skin: Negative for color change, pallor, rash and wound. Neurological: Negative for dizziness, weakness, light-headedness, numbness and headaches. Hematological: Negative for adenopathy. Does not bruise/bleed easily. Psychiatric/Behaviora l: Negative for confusion. All other systems reviewed and are negative. Past Medical History: Past Medical History: Diagnosis Date Diverticulitis Past medical history reviewed. Past Surgical History: Past Surgical History: Procedure Laterality Date BREAST SURGERY Past surgical history reviewed. Family History: History reviewed. No pertinent family history. Family history reviewed. Social History: Social History [1] Social history reviewed. Allergies: Allergies[2] Medications: No current outpatient medications on file. PHYSICAL EXAMINATION: Vital Signs BP 115/70 Pulse 94 Temp 99.5 degrees F (37.5 degrees C) (Axillary) Resp 18 Ht 5' 10 Wt 81.6 kg (180 lb) SpO2 93% BMI 25.83 kg/m Physical Exam Vitals and nursing note reviewed. Constitutional: Appearance: She is not diaphoretic. Comments: Appears uncomfortable. Does not appear septic or toxic. Eyes: General: No scleral icterus. Pupils: Pupils are equal, round, and reactive to light. Cardiovascular: Rate and Rhythm: Normal rate and regular rhythm. Heart sounds: Normal heart sounds. No murmur heard. Musculoskeletal: Right lower leg: No edema. Left lower leg: No edema. Pulmonary: Breath sounds: No wheezing or rhonchi. Abdominal: General: Abdomen is flat. Tenderness: There is generalized abdominal tenderness. Comments: Diffuse tenderness with even light touch/auscultation of the abdomen. Hyperactive bowel sounds right upper quadrant. Bowel sounds present all 4 quadrants. Skin: General: Skin is warm. Coloration: Skin is not jaundiced or pale. Findings: No erythema or rash. Comments: Overlying skin changes of the abdomen and pelvis Neurological: General: No focal deficit present. Mental Status: She is alert and oriented to person, place, and time. Vital Signs During ED Visit (as charted by nursing) Patient Vitals for the past 24 hrs: BP Temp Temp src Pulse Resp SpO2 Height Weight 03/16/25 1200 115/70 -- -- 94 18 93 % -- -- 03/16/25 1100 126/84 -- -- 91 (!) 26 94 % -- -- 03/16/25 1050 (!) 120/98 99.5 degrees F (37.5 degrees C) Axillary 94 16 100 % 5' 10 81.6 kg (180 lb) MEDICAL DECISION MAKING: Ms Lind, update: Diverticulitis: With perforation and abscess. Clinical picture more prominent or concerning for suspected amount of free air given suspected findings on CT. By report large amount of air present on CT though unable to review images while awaiting to be pushed through. Consult initiated with surgery in the ED. IV antibiotics continued, pain nausea medication. Plans for admission. N.p.o. while awaiting timing for possible intraoperative treatment versus inpatient admission and IR consult for drain placement MDM Data : Chronic conditions is/is not having mild/moderate/severe exacerbation, progression or side effects of treatment, Shared decision making utilized by explaining the results and plan of care for disposition and next steps of care with the patient and/or family, Treatment Goals were addressed, Drug management discussed, External Records Reviewed, Admit or Transfer Decisions considered, Discussed with consultants/staff, and Social Determinants of Health Impacted Treatment/Disposition IMPRESSION: 1 (more content not included)... Normal [facility] Emergency Department Summary on 03-16-2025 Emergency Department Summary [facility] Medical Records Department [address] [place] [address] Emergency Department Summary 03/16/25 MR#: [id number] Acct: [id number] Name: JOSE LIND Rep #: [id number] : 1965 59 From: Jeff Abrams DO PCP: Dr. Rosibel Godfrey MD Status:REG ER Location: ED HPI HPI - GI History of Present Illness Chief Complaint: Abd Pain Informant: patient Narrative Narrative: 59-year-old female presenting to the emergency room with the chief complaint of abdominal pain and bloating. History is a bit difficult to obtain as the patient answers in very short 1-2 word sentences even on open-ended questions. Patient states she has had a history of diverticulitis. She states that this is the second time she has had to come to the hospital for it. First time I do not see an ED visit. She had a colonoscopy by Dr. Rich in 2023 that showed diverticulitis in the treated with Cipro and Flagyl. Patient states that in the past 24 hours she has developed pain which she points to the suprapubic region and abdominal bloating. She denies any vomiting. She states that about 2 hours ago she began to have diarrhea. No reported fevers. She denies any abdominal surgeries. She states that she has had a cold over the past week and a half has been taking DayQuil NyQuil and her ribs are sore from coughing. [facility] Medical History Colitis Wears glasses Post-menopausal Alcohol use Easy bruising Former smoker Shortness of breath on exertion History of stress test Menorrhagia History of colon polyps Home Medications ???Medication ???Instructions ???Recorded ???Last Taken ???Type loratadine 10 mg tablet 10 mg PO DAILY PRN allergy symptom s 08/23/23 Unknown History naproxen sodium 220 mg tablet 220 mg PO BID PRN pain 08/23/23 Un known History (Aleve) Allergy/AdvReac Type Severity Reaction Status Date / Time No Known Allergies Allergy Verified 12/22/24 09:55 Family History Grandmother Breast cancer Brother Myocardial infarction Father Myocardial infarction Hypertension Heart disease Brother Cancer lymphoma Mother CVA (cerebral vascular accident) Surgical History Hx of colonoscopy History of hysteroscopy Status post breast reduction Social History household members: spouse current occupational status: employed 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 - [employer] Smoking Status: Former smoker quit date: 10/22/20 pack-years: 20 Electronic Cigarette Use: not used alcohol intake: current alcohol intake frequency: holidays/special occasions only substance use type: does not use do you feel safe at home: Yes ROS ROS ED Constitutional Constitutional ED: Denies chills, fever(s) or weight loss Eyes Eyes: Denies change in vision or diplopia ENT ENT ED: Denies ear pain, rhinorrhea or sore throat Cardiovascular Cardiovascular: Denies chest pain, orthopnea, palpitations or racing heartbeat Respiratory/Chest Respiratory/Chest: Denies cough, dyspnea or orthopnea Gastrointestinal Gastrointestinal: Reports abdominal pain and diarrhea; Denies nausea or vomiting Genitourinary Genitourinary ED: Denies dysuria, hematuria or urinary frequency Musculoskeletal Musculoskeletal: Denies arthralgias or myalgias Integumentary Denies abscess or rash Neurologic Neurologic: Denies headache(s) or weakness Psychiatric Psychiatric: Denies anxiety, depression, suicidal ideation or suicidal thoughts Endocrine Endocrinology: Denies polydipsia, polyphagia or polyuria Allergic/Immunologic Allergic/Immunologic ED: Denies mouth swelling, tongue swelling or urticaria EXAM Physical Exam Const Vital Signs: 03/16/25 03:32 03/16/25 03:45 03/16/25 05:00 Temperature 97.7 F L 97.7 F L 97.7 F L Temperature Source Oral Oral Oral Pulse Rate 94 91 93 Respiratory Rate 16 22 H 18 Blood Pressure 90/55 L 110/84 H 112/83 H Blood Pressure Mean 66 92 92 Pulse Ox 97 93 Oxygen Delivery Method Room Air Room Air Room Air 03/16/25 05:31 03/16/25 06:00 Temperature 97.8 F Temperature Source Oral Pulse Rate 94 92 Respiratory Rate 18 18 Blood Pressure 103/72 103/72 Blood Pressure Mean 82 82 Pulse Ox 95 97 Oxygen Delivery Method Room Air Room Air Positive well nourished and well developed General Appearance ED: well developed HEENT Reports normocephalic, head/scalp atraumatic and moist mucous membranes Eyes PERRL and EOMs intact bilaterally Neck no lymphadenopathy, supple and no JVD Resp normal respiratory effort and clear to auscultation bilaterally Cardio regular (more content not included)... Normal [facility] Eosinophil percentageOrdered By: Jeff Abrams on 03-16-2025 Eosinophils/100 WBC (Bld) 0.1 % 0-5 [facility] Erythrocyte distribution wid th ratioOrdered By: Jeff Abrams on 03-16-2025 Erythrocyte distribution width (RBC) [Ratio] 16.8 % High 11.6-14.6 [facility] Erythrocyte distribution wid th standard deviationOrdered By: Jeff Abrams on 03-16-2025 Erythrocyte distribution width (RBC) [Ratio] 57.5 fl High 35.1-43.9 [facility] Glomerular filtration rate ( GFR) estimation/1.73 sq m using serum, plasma, or whole bOrdered By: Jeff Abrams on 03-16-2025 GFR/1.73 sq M.predicted among non-blacks MDRD (S/P/Bld) [Vol rate/Area] 98 mL/min/{1.73_m2} >60 [facility] Comment on above: mL/min/1.73m2 CKD-EP I Creatinine Equation (2020) Glucose (Bld) [Mass/Vol]on 0 03-16-2025 Glucose [Mass/Vol] 119 mg/dL High 65 - 99 mg/dL [facility] Interpretation and review of laboratory results Abnormal [facility] Gold Topon 03-16-2025 Extra Tube Hold for add-ons. [facility] Hematocrit Auto (Bld) [Volum e fraction]Ordered By: Jeff Abrams on 03-16-2025 Hematocrit (Bld) [Volume fraction] 42.3 % 37-47 [facility] Hemoglobin measurementOrdere d By: Jeff Abrams on 03-16-2025 Hemoglobin (Bld) [Mass/Vol] 14.3 g/dL 12.0-15.0 [facility] INR Coag (PPP) [Relative rosa e]on 03-16-2025 Interpretation and review of laboratory results Normal [facility] PT Coag (PPP) [Time] 14.2 s [facility] Immature granulocytes/100 WB C Auto (Bld)Ordered By: Jeff Abrams on 03-16-2025 Immature granulocytes/100 WBC (Bld) 0.600 % 0.0-0.9 [facility] Comment on above: IG% - Immature Granu locytes (promyelocytes, myelocytes and metamyelocytes) > 1% indicates that a LEFT SHIFT is Present. Ketones Test strip Ql (U)Ord ered By: Jeff Abrams on 03-16-2025 Ketones Ql (U) 50 mg/dl High Negative [facility] LACTIC ACID, PLASMAon 2024 LACTIC ACID, PLASMA 1.3 mmol/L Normal 0.6-2.0 [facility] Comment on above: Performed By: #### [id number] #### [facility] [address] [place] [address] [id number] [facility] Laboratory - Chemistry and C hemistry - challengeOrdered By: Jeff Abrams on 03-16-2025 AST [Catalytic activity/Vol] 19 U/L <32 [facility] Lactate [Moles/Vol]on 2024 Interpretation and review of laboratory results Normal [facility] Lactic Acidon 03-16-2025 Lactate [Moles/Vol] 1.3 mmol/L 0.6 - 2. 0 mmol/L [facility] Lipaseon 03-16-2025 Lipase [Catalytic activity/Vol] 13 U/L Normal 13-75 [facility] Comment on above: Result Comment: Parul hernandes note: LIPASE revised reference range effective 23. New Lipase methodology. Expected to produce lower values than the previous assay method. NEW Reference Range: 13 - 75 U/L Performed By: #### L 501.2450, L500.2500, L100.0100, L500.3400 #### [facility] Laboratory [address] [place], [address] Lipase measurementOrdered By : Jeff Abrams on 03-16-2025 Lipase [Catalytic activity/Vol] 13 U/L 13-75 [facility] Comment on above: Please note:LIPASE r evised reference range effective 23. New Lipase methodology. Expected to produce lower values than the previous assay method. NEW Reference Range: 13 - 75 U/L Liver Profileon 03-16-2025 Albumin [Mass/Vol] 3.6 g/dL Normal 3.4-4.8 [facility] Comment on above: Performed By: #### L 501.2450, L500.2500, L100.0100, L500.3400 #### [facility] [address] [place], [address] ALK PHOS 93 U/L Normal 35-104 [facility] Comment on above: Performed By: #### L 501.2450, L500.2500, L100.0100, L500.3400 #### [facility] [address] [place], [address] ALT [Catalytic activity/Vol] 14 U/L Normal <=34 [facility] Comment on above: Performed By: #### L 501.2450, L500.2500, L100.0100, L500.3400 #### [facility] [address] [place], [address] AST [Catalytic activity/Vol] 19 U/L Normal <=31 [facility] Comment on above: Performed By: #### L 501.2450, L500.2500, L100.0100, L500.3400 #### [facility] [address] [place], [address] Bilirubin [Mass/Vol] 0.99 mg/dL Normal 0.00-1.30 [facility] Comment on above: Performed By: #### L 501.2450, L500.2500, L100.0100, L500.3400 #### [facility] [address] [place], [address] Bilirubin.direct [Mass/Vol] 0.49 mg/dL High 0.00-0.30 [facility] Comment on above: Performed By: #### L 501.2450, L500.2500, L100.0100, L500.3400 #### [facility] [address] [place], [address] Globulin (S) [Mass/Vol] 4.4 g/dL High 2.2-4.2 [facility] Comment on above: Performed By: #### L 501.2450, L500.2500, L100.0100, L500.3400 #### [facility] [address] [place], [address] T PROT 8.0 g/dL Normal 5.9-8.4 [facility] Comment on above: Performed By: #### L 501.2450, L500.2500, L100.0100, L500.3400 #### [facility] [address] [place], [address] MCV (mean corpuscular volume ) determinationOrdered By: Jeff Abrams on 03-16-2025 MCV (RBC) [Entitic vol] 94.0 fL 81-99 [facility] Mean corpuscular hemoglobin (MCH) determinationOrdered By: Jeff Abrams on 03-16-2025 MCH (RBC) [Entitic mass] 31.8 pg 27.0-32.0 [facility] Mean corpuscular hemoglobin concentration (MCHC) determinationOrdered By: Jeff Abrams on 03-16-2025 MCHC (RBC) [Mass/Vol] 33.8 g/dL 32-36 [facility] Mean platelet volume determi nationOrdered By: Jeff Abrams on 03-16-2025 Platelet mean volume (Bld) [Entitic vol] 9.0 fL 6.2-12.0 [facility] Microscopic analysis of urin e for red blood cells (RBC)Ordered By: Jeff Abrams on 03-16-2025 Microscopic analysis of urine for red blood cells (RBC) 0 SEEN /hpf 0-5 [facility] Monocyte percentageOrdered B y: Jeff Arbams on 03-16-2025 Monocytes/100 WBC (Bld) 5.0 % 0-10 [facility] Mucus LM Ql (Urine sed)Order ed By: Jeff Abrams on 03-16-2025 Mucus Ql (Urine sed) 3+ /hpf [facility] NT PRO BNPon 03-16-2025 Natriuretic peptide B (Bld) [Mass/Vol] 479 pg/mL High 0-300 [facility] Comment on above: Order Comment: Injur y/Trauma or Illness?:Illness/Other How long have you had these symptoms (acute/chronic)?:Unknown Reason for exam?:Heart failure, known or suspected, initial workup Type of Exam?:Ongoing Additional signs and symptoms?:n/a Performed By: #### 4 [id number] ####[facility] [address] [place] [address] Lew Tim M.D. [id number] NT Pro BNPon 03-16-2025 Natriuretic peptide.B prohormone N-Terminal [Mass/Vol] 479 pg/mL High 0 - 300 pg/mL [facility] Natriuretic peptide.B prohor orlando N-Terminal [Mass/Vol]on 03-16-2025 Interpretation and review of laboratory results Abnormal [facility] Neutrophil percentageOrdered By: Jeff Abrams on 03-16-2025 Neutrophils/100 WBC (Bld) 89.3 % High 47-70 [facility] Nitrite Test strip Ql (U)Ord ered By: Jeff Abrams on 03-16-2025 Nitrite Ql (U) Negative Negative [facility] Nucleated red blood cell per centageOrdered By: Jeff Abrams on 03-16-2025 Nucleated RBC/100 WBC (Bld) [Ratio] 0 % 0-5 [facility] OP NOTEon 03-16-2025 OP NOTE OPERATIVE REPORT PATIENT Jose Lind CSN: [id number] : 1965 DATE OF PROCEDURE: 03/16/25 This is a Clinic Surgery Case CLINIC SURGEON: Tamica Palm MD STAFF SURGEON: Lavinia Carrillo MD This is a surgery clinic case. I was present/scrubbed for all critical portions of the procedure and immediately available for the entire procedure performed on 03/16/2025. I agree with the operative report below. FLOOR ASSEMBLER: Catherine Santoro DO PREOPERATIVE DIAGNOSES Perforated sigmoid diverticulitis with abscess POSTOPERATIVE DIAGNOSES Hinchey III perforated rectosigmoid diverticulitis PROCEDURE Exploratory laparotomy, diverting sigmoid colostomy, abdominal washout ANESTHESIA General INDICATIONS Jose Lind is a 59 y.o. female with history of former smoker, s/p breast reduction, colon polyps, diverticulitis who [facility] with worsening abdominal pain for a week. CT scan demonstrated free air diffusely in the abdomen as well as an abscess adjacent to sigmoid diverticulitis. The patient was peritoneal on exam. We discussed proceeding to the OR for a possible sigmoid colectomy versus abdominal washout versus colostomy. She agreed to proceed and understood the need for further operation in the future. We discussed the risk versus benefits of exploratory laparotomy with possible resection and possible ostomy FINDINGS Densely inflamed rectosigmoid and low rectum, purulent peritonitis. No site of perforation was able to be visualized DESCRIPTION OF PROCEDURE The patient was brought to the OR and laid supine. She was induced under general anesthesia without incident. The abdomen was prepped and draped in the usual sterile fashion. A timeout was performed using patient identifiers and a safety checklist. We began by making a low midline laparotomy. Skin was incised using a #10 scalpel. Subcutaneous tissue was dissected through with Bovie electrocautery. Purulence was immediately encountered upon entering the abdomen. There was a large fibroid on the uterus. Purulence was suctioned out of the abdomen and I proceeded to identify structures. It appeared that the left fallopian tube was adhered quite densely to the anterior wall of the rectosigmoid colon. We were able to free this off the colon but needed to transect part of the fallopian tube in order to do this using Bovie electrocautery. We bluntly broke up loculations and the purulence down to the pelvis and the abdomen. Once I was able to reach down to palpate the rectum it was noted that down through the low rectum was very inflamed and hard. I was unable to visualize where the perforation was on the colon. Small bowel appeared healthy. We decided that undertaking dissection of the low rectum while it was in the state would be risky to any future plans for resection and would prevent us from performing a bailout procedure that would allow the patient options in the future. We thus decided to divert and washout the abdomen without any resection. We freed the sigmoid colon up enough to reach the anterior abdominal wall. We then made a circular incision in the skin on the left side over the rectus muscle and dissected down to the fascia. Here we made a cruciate incision in the fascia and spread through rectus muscle. We brought the sigmoid loop up through this defect and placed a katlin through the mesentery just under the colon in order to stabilize it in place. We then inspected the abdomen again ensuring that there were no further pockets of purulence. We irrigated out the abdominal cavity using warm saline and suctioned this out. We then closed the fascia using a running 1-0 Vicryl. The skin was closed using skin nichol. I then turned my attention the ostomy. I open the loop and used 3-0 Vicryl pops to secure it to the skin. The patient was woken from general anesthesia without incident and transferred to the PACU in stable condition. Counts were correct x 2 ESTIMATED BLOOD LOSS 30cc COMPLICATIONS none DRAINS none SPECIMENS none Tamica Palm Surgery PGY5 03/16/25 AUTHENTICATED BY LAVINIA CARRILLO, ON 04/27/2025 07:17:49 Normal [facility] POC GLUCOSE - Gertrude 025 Glucose [Mass/Vol] 119 mg/dL High 65-99 [facility] Comment on above: Performed By: #### 4 [id number] #### [facility] [address] [place] [address] [id number] [facility] PT/INRon 03-16-2025 INR Coag (PPP) [Relative time] 1.1 {INR} 0.8 - 1.1 [facility] INR Coag (PPP) [Relative time] 1.1 {INR} Normal 0.8-1.1 [facility] Comment on above: Order Comment: Jad reyes the induction phase of oral anticoagulation, the INR may not reflect the anticoagulation status of the patient. Therapeutic ranges for INR's are:Most clinical situations: INR 2.0-3.0Mechanical Prosthetic Valve: INR 2.5-3.5Critical: INR >5.0 Performed By: #### 4 [id number] #### [facility] [address] [place] [address] [id number] [facility] PT Coag (PPP) [Time] 14.2 s Normal 11.8-14.3 [facility] Comment on above: Order Comment: Jad reyes the induction phase of oral anticoagulation, the INR may not reflect the anticoagulation status of the patient. Therapeutic ranges for INR's are:Most clinical situations: INR 2.0-3.0Mechanical Prosthetic Valve: INR 2.5-3.5Critical: INR >5.0 Performed By: #### 4 [id number] #### [facility] [address] [place] [address] [id number] [facility] Platelet countOrdered By: Ignacio Abrams on 03-16-2025 Platelets (Bld) [#/Vol] 424 10*3/uL 150-450 [facility] Potassium measurement (mass/ volume)Ordered By: Jeff Abrams on 03-16-2025 Potassium (Unsp spec) [Mass/Vol] 4.0 mmol/L 3.3-5.1 [facility] Protein Test strip Ql (U)Ord ered By: Jeff Abrams on 03-16-2025 Protein Ql (U) 100 mg/dl High Negative [facility] RBC Auto (Bld) [#/Vol]Ordere d By: Jeff Abrams on 03-16-2025 RBC (Bld) [#/Vol] 4.50 10*6/uL 4.2-5.4 [facility] Serum creatinine measurement (mass/volume)Ordered By: Jeff Abrams on 03-16-2025 Creatinine [Mass/Vol] 0.70 mg/dL 0.70-1.20 [facility] Serum globulin measurementOr dered By: Jeff Abrams on 03-16-2025 Globulin (S) [Mass/Vol] 4.4 g/dL High 2.2-4.2 [facility] Serum glucose measurement (m ass/volume)Ordered By: Jeff Abrams on 03-16-2025 Glucose [Mass/Vol] 137 mg/dL High 70-99 [facility] Serum or plasma alanine quintanilla otransferase (ALT) measurementOrdered By: Jeff Abrams on 03-16-2025 ALT [Catalytic activity/Vol] 14 U/L <35 [facility] Serum or plasma albumin keeley urement (mass/volume)Ordered By: Jeff Abrams on 03-16-2025 Albumin [Mass/Vol] 3.6 g/dL 3.4-4.8 [facility] Serum or plasma alkaline daniel sphatase measurementOrdered By: Jeff Abrams on 03-16-2025 ALP [Catalytic activity/Vol] 93 U/L 35-104 [facility] Serum or plasma calcium keeley urement (mass/volume)Ordered By: Jeff Abrams on 03-16-2025 Calcium [Mass/Vol] 9.4 mg/dL 7.6-11.0 [facility] Serum or plasma urea nitroge n measurement (mass/volume)Ordered By: Jeff Abrams on 03-16-2025 Urea nitrogen [Mass/Vol] 13 mg/dL 4-19 [facility] Sodium levelOrdered By: Guillermo Abrams on 03-16-2025 Sodium [Moles/Vol] 133 mmol/L 133-145 [facility] Squamous epithelial cells de tection in urine sediment by light microscopyOrdered By: Jeff Abrams on 03-16-2025 Epithelial cells.squamous LM Ql (Urine sed) 5-10 SEEN /hpf 5-10 [facility] TYPE AND SCREENon 03-16-2025 TYPE AND SCREEN ABORH: A Negative AB SCREEN: Negative EXPIRATION DATE: 03/19/2025 23:59 EST Normal [facility] Comment on above: Performed By: #### 4 [id number] #### [facility] [address] [address] Lew Tim M.D. [id number] Total proteinOrdered By: Alejandro Abrams on 03-16-2025 Protein [Mass/Vol] 8.0 g/dL 5.9-8.4 [facility] Urinalysis, Completeon 03-16 BACTERIA 2+ /hpf Normal None Seen [facility] Comment on above: Order Comment: CLEAN CATCH Performed By: #### L 400.0001 #### [facility] [address] [place], [address] EPI,SQUAMOUS 5-10 SEEN Normal 5-10 [facility] Comment on above: Order Comment: CLEAN CATCH Performed By: #### L 400.0001 #### [facility] [address] [place], [address] Mucus Ql (Urine sed) 3+ /hpf Normal [facility] Comment on above: Order Comment: CLEAN CATCH Performed By: #### L 400.0001 #### [facility] [address] [place], [address] WBC 0-5 SEEN Normal 0-5 [facility] Comment on above: Order Comment: CLEAN CATCH Performed By: #### L 400.0001 #### [facility] [address] [place], [address] RBC 0 SEEN Normal 0-5 [facility] Comment on above: Order Comment: CLEAN CATCH Performed By: #### L 400.0001 #### [facility] [address] [place], [address] Urine clarityOrdered By: Alejandro Abrams on 03-16-2025 Clarity (U) Sl. Cloudy Clear [facility] Urine color determinationOrd ered By: Jeff Abrams on 03-16-2025 Color (U) Yellow Yellow [facility] Urine glucose detectionOrder ed By: Jeff Abrams on 03-16-2025 Glucose Ql (U) Normal mg/dl Normal [facility] Urine leukocyte esterase det ection by dipstickOrdered By: Jeff Abrams on 03-16-2025 Leukocyte esterase Test strip Ql (U) 25 /ul High Negative [facility] Urine pHOrdered By: Jeff brandon on 03-16-2025 pH (U) 5.0 [pH] 5.0 - 8.0 [facility] Urine sediment bacteria coun t by microscopy (number/high power field)Ordered By: Jeff Abrams on 03-16-2025 Bacteria LM.HPF (Urine sed) [#/Area] 2 /[HPF] None Seen [facility] Urine specific gravity measu rementOrdered By: Jeff Abrams on 03-16-2025 Specific gravity (U) [Rel density] 1.025 1.002-1.030 [facility] Urine urobilinogen measureme ntOrdered By: Jeff Abrams on 03-16-2025 Urobilinogen Ql (U) 4 mg/dl High Normal [facility] White blood cell (WBC) count Ordered By: Jeff Abrams on 03-16-2025 WBC (Bld) [#/Vol] 15.7 10*3/uL High 4.4-11.0 [facility] White blood cell countOrdere d By: Jeff Abrams on 03-16-2025 White blood cell count 0-5 SEEN /hpf 0-5 [facility] Breast imaging reportOrdered By: Deonna Hodges on 01-26-[address] [facility] Imaging Services [address] [place] [address] SCRN MAMM (CAD)W/MAURO WHEELER MR#: [id number] Acct: [id number] Name: JOSE LIND Rep #: [id number] : 1965 F 59 From: Kael Hodges DO PCP: Dr. Rosibel Godfrey MD Status: REG CLI Study:SCRN MAMM (CAD)W/MAUROShayna COHENAT Date of Exa m: 01/26/25 Exam# [id number] Ordering Dr: Rosibel Godfrey MD EXAM: SCRN MAMM (CAD)W/MAURO BILAT DATE: 01/26/2025 CLINICAL HISTORY: F, Age 59 y/o , SCREENING BREAST CANCER RISK ASSESSMENT: Has not been calculated. TECHNIQUE: Bilateral screening digital breast tomosynthesis with 2D and 3D images. Computeraided detection. COMPARISON: Prior exam(s) dated 09/21/2023. FINDINGS: TISSUE DENSITY: The breast tissue is composed of scattered area of fibroglandular density. Of Bilateral Breast Mammographic Findings: There are stable benign round calcifications are seen in both breasts. Stable clusters of round and punctate calcifications are seen in the far anterior aspect, retroareolar region of both breasts. No suspicious masses, suspicious cluster of microcalcifications, architectural distortion or secondary to malignancy is identified in either breast. BI/SCRN MAMM (CAD)W/MAURO BILAT IMPRESSION: Right Breast: BIRADS 2 BENIGN FINDING. Left Breast: BIRADS 2 BENIGN FINDING. OVERALL FINAL ASSESSMENT: BIRADS 2 BENIGN FINDING RECOMMENDATION: Routine annual follow-up in 1 Year A letter with findings and recommendations will be mailed to the patient. Reading Location: [id number] CC: Dr. Rosibel Godfrey MD ~ Door Puller: Signed [facility] Cardiovascular stress test r eportOrdered By: Kumar Asif on 01-26-2025 Study report [facility] Cardiovascular Services [address] [place] [address] MR#: [id number] Acct: [id number] Name: JOSE LIND Rep #: [id number] : 1965 59 From: Kumar Asif MD Primary Care: Dr. Rosibel Godfrey MD Stat us: REG CLI Referring Dr: Rosibel Godfrey MD Sex: F C Stress Test Report Exercise myocardial perfusion stress test. 59-year-old lady with a history of chest pain Stress protocol: Resting EKG demonstrates sinus rhythm with a rate of 66 bpm resting blood pressure is 140/92 mmHg. The patient exercised according to the regular Brian protocol for a total duration of 6 minutes attaining a maximum heart rate of 130bpm which was 81% of maximum predicted heart rate; the maximum workload was 7 METS metabolic equivalents. At rest there were no ST or T wave changes noted tosuggest ischemia and at peak exercise upsloping ST changes only were noted whichdid not meet the criteria for ischemia. No clinical angina was noted the test was terminated due to the target heart rate being achieved/fatigue. The peak blood pressure was 168/102 mmHg. Rate-pressure product was 19,700. Myocardial perfusion protocol. 14.5 mCi of technetium 99m sestamibi was injected at rest. The patient exercised according to regular Brian protocol for total duration of 6 minutes and at peak exercise 44.3 mCi of technetium 99m sestamibi was injected stress images were obtained stress and rest images were reconstructed in comparing the short axis vertical long and horizontal long axis. Gated images were also obtained. Perfusion SPECT analysis: Review of the stress images demonstrate normal uptake of tracer noted in all areas of the myocardium. The resting images similarly demonstrate normal uptakeof tracer noted in all areas of the myocardium. No areas of reversibility are noted to suggest ischemia no previous infarct was noted. Gated SPECT analysis: The gated ejection fraction is 51%. Conclusion: Normal exercise myocardial perfusion stress test at a moderate workload Preserved ejection fraction. 01/26/251627 Date _ Kumar Asif MD CC: Dr. Rosibel Godfrey MD ~ Date Dictated: 01/26/251625 Date Transcribed: 01/26/251625 Door Puller: [place] Signed [facility] Work Phone: SCRN MAMM (CAD)W/MAURO COHENAnne Marie n 01-26-2025 SCRN MAMM (CAD)W/[facility]UR[facility] [address] [place] [id number] SCRN MAMM (CAD)W/MAURO WHEELER MR#: [id number] Acct: [id number] Name: DIOGOJOSE REMY Rep #: [id number] : 1965 F 59 From: Deonna Corral PCP: Dr. Rosibel Godfrey MD Status: REG CLI Study: SCRN MAMM (CAD)W/MAURO BILAT Date of Exam: 05/15 Exam# [id number] Ordering Dr: Rosibel Godfrey MD EXAM: SCRN MAMM (CAD)W/MAURO BILAT DATE: 01/26/2025 CLINICAL HISTORY: F, Age 59 y/o , SCREENING BREAST CANCER RISK ASSESSMENT: Has not been calculated. TECHNIQUE: Bilateral screening digital breast tomosynthesis with 2D and 3D images. Computer aided detection. COMPARISON: Prior exam(s) dated 09/21/2023. FINDINGS: TISSUE DENSITY: The breast tissue is composed of scattered area of fibroglandular density. Of Bilateral Breast Mammographic Findings: There are stable benign round calcifications are seen in both breasts. Stable clusters of round and punctate calcifications are seen in the far anterior aspect, retroareolar region of both breasts. No suspicious masses, suspicious cluster of microcalcifications, architectural distortion or secondary to malignancy is identified in either breast. BI/SCRN MAMM (CAD)W/MAURO BILAT IMPRESSION: Right Breast: BIRADS 2 BENIGN FINDING. Left Breast: BIRADS 2 BENIGN FINDING. OVERALL FINAL ASSESSMENT: BIRADS 2 BENIGN FINDING RECOMMENDATION: Routine annual follow-up in 1 Year A letter with findings and recommendations will be mailed to the patient. Reading Location: [id number] CC: Dr. Rosibel Godfrey MD Door Puller: Signed Normal [facility] Stress Reporton 01-26-2025 Stress Report [facility] Cardiovascular Services [address] [place] [address] MR#: [id number] Acct: [id number] Name: JOSE LIND Rep #: [id number] : 1965 59 From: Kumar Asif MD Primary Care: Dr. Rosibel Godfrey MD Status: REG CLI Referring Dr: Rosibel Godfrey MD Sex: F C Stress Test Report Exercise myocardial perfusion stress test. 59-year-old lady with a history of chest pain Stress protocol: Resting EKG demonstrates sinus rhythm with a rate of 66 bpm resting blood pressure is 140/92 mmHg. The patient exercised according to the regular Brian protocol for a total duration of 6 minutes attaining a maximum heart rate of 130 bpm which was 81% of maximum predicted heart rate; the maximum workload was 7 METS metabolic equivalents. At rest there were no ST or T wave changes noted to suggest ischemia and at peak exercise upsloping ST changes only were noted which did not meet the criteria for ischemia. No clinical angina was noted the test was terminated due to the target heart rate being achieved/fatigue. The peak blood pressure was 168/102 mmHg. Rate-pressure product was 19,700. Myocardial perfusion protocol. 14.5 mCi of technetium 99m sestamibi was injected at rest. The patient exercised according to regular Brian protocol for total duration of 6 minutes and at peak exercise 44.3 mCi of technetium 99m sestamibi was injected stress images were obtained stress and rest images were reconstructed in comparing the short axis vertical long and horizontal long axis. Gated images were also obtained. Perfusion SPECT analysis: Review of the stress images demonstrate normal uptake of tracer noted in all areas of the myocardium. The resting images similarly demonstrate normal uptake of tracer noted in all areas of the myocardium. No areas of reversibility are noted to suggest ischemia no previous infarct was noted. Gated SPECT analysis: The gated ejection fraction is 51%. Conclusion: Normal exercise myocardial perfusion stress test at a moderate workload Preserved ejection fraction. 01/26/251627 Date Kumar Asif MD CC: Dr. Rosibel Godfrey MD Date Dictated: 01/26/251625 Date Transcribed: 01/26/251625 Door Puller: [place] Signed Normal [facility] Absolute lymphocyte countOrd ered By: Rosibel Godfrey on 12-22-2024 Lymphocytes Auto (Unsp spec) [#/Vol] 1.13 10*3/uL 0.83-4.51 [facility] Absolute neutrophil countOrd ered By: Rosibel Godfrey on 12-22-2024 Neutrophils (Bld) [#/Vol] 6.7 10*3/uL 2.0-7.7 [facility] Automated lymphocyte count a s percentage of total leukocytesOrdered By: Rosibel Godfrey on 12-22-2024 Lymphocytes/100 WBC Auto (Unsp spec) 12.8 % Low 19-41 [facility] BUN/creatinine ratioOrdered By: Rosibel Godfrey on 12-22-2024 Urea nitrogen/Creatinine [Mass ratio] 14.2 mg/mg 10-20 [facility] Basophil percentageOrdered B y: Rosibel Godfrey on 12-22-2024 Basophils/100 WBC (Bld) 0.7 % 0-1 [facility] Bilirubin, totalOrdered By: Rosibel Godfrey on 12-22-2024 Bilirubin [Mass/Vol] 0.47 mg/dL 0.00-1.30 [facility] CBC W/Diff, Automatedon Absolute Lymph 1.13 X10 3/uL Normal 0.83-4.51 [facility] Comment on above: Performed By: #### L 500.4050, L500.4100, L501.9520, L100.0100 #### [facility] Laboratory [address] [place], [address] Absolute Neut 6.7 X10 3/uL Normal 2.0-7.7 [facility] Comment on above: Performed By: #### L 500.4050, L500.4100, L501.9520, L100.0100 #### [facility] [address] [place], [address] Basophils/100 WBC (Bld) 0.7 % Normal 0-1 [facility] Comment on above: Performed By: #### L 500.4050, L500.4100, L501.9520, L100.0100 #### [facility] [address] [place], [address] Eosinophils/100 WBC (Bld) 1.9 % Normal 0-5 [facility] Comment on above: Performed By: #### L 500.4050, L500.4100, L501.9520, L100.0100 #### [facility] [address] [place], [address] Erythrocyte distribution width (RBC) [Ratio] 13.6 % Normal 11.6-14.6 [facility] Comment on above: Performed By: #### L 500.4050, L500.4100, L501.9520, L100.0100 #### [facility] [address] [place], [address] Hematocrit (Bld) [Volume fraction] 45.3 % Normal 37-47 [facility] Comment on above: Performed By: #### L 500.4050, L500.4100, L501.9520, L100.0100 #### [facility] [address] [place], [address] Hemoglobin (Bld) [Mass/Vol] 14.3 g/dL Normal 12.0-15.0 [facility] Comment on above: Performed By: #### L 500.4050, L500.4100, L501.9520, L100.0100 #### [facility] [address] [place], [address] IG% 0.300 Normal 0.0-0.9 [facility] Comment on above: Result Comment: IG% - Immature Granulocytes (promyelocytes, myelocytes and metamyelocytes) > 1% indicates that a LEFT SHIFT is Present. Performed By: #### L 500.4050, L500.4100, L501.9520, L100.0100 #### [facility] [address] [place], [address] Lymphocytes/100 WBC (Bld) 12.8 % Low 19-41 [facility] Comment on above: Performed By: #### L 500.4050, L500.4100, L501.9520, L100.0100 #### [facility] [address] [place], [address] MCH (RBC) [Entitic mass] 30.3 pg Normal 27.0-32.0 [facility] Comment on above: Performed By: #### L 500.4050, L500.4100, L501.9520, L100.0100 #### [facility] [address] [place], [address] MCHC (RBC) [Mass/Vol] 31.6 g/dL Low 32-36 [facility] Comment on above: Performed By: #### L 500.4050, L500.4100, L501.9520, L100.0100 #### [facility] [address] [place], [address] MCV (RBC) [Entitic vol] 96.0 fL Normal 81-99 [facility] Comment on above: Performed By: #### L 500.4050, L500.4100, L501.9520, L100.0100 #### [facility] [address] [place], [address] Monocytes/100 WBC (Bld) 8.6 % Normal 0-10 [facility] Comment on above: Performed By: #### L 500.4050, L500.4100, L501.9520, L100.0100 #### [facility] [address] [place], [address] Neutrophils/100 WBC (Bld) 75.7 % High 47-70 [facility] Comment on above: Performed By: #### L 500.4050, L500.4100, L501.9520, L100.0100 #### [facility] [address] [place], [address] Nucleated RBC (Bld) [#/Vol] 0 10*3/uL Normal 0-5 [facility] Comment on above: Performed By: #### L 500.4050, L500.4100, L501.9520, L100.0100 #### [facility] [address] [place], [address] Platelet mean volume (Bld) [Entitic vol] 9.0 fL Normal 6.2-12.0 [facility] Comment on above: Performed By: #### L 500.4050, L500.4100, L501.9520, L100.0100 #### [facility] [address] [place], [address] Platelets (Bld) [#/Vol] 403 10*3/uL Normal 150-450 [facility] Comment on above: Performed By: #### L 500.4050, L500.4100, L501.9520, L100.0100 #### [facility] [address] [place], [address] RBC (Bld) [#/Vol] 4.72 10*6/uL Normal 4.2-5.4 [facility] Comment on above: Performed By: #### L 500.4050, L500.4100, L501.9520, L100.0100 #### [facility] [address] [place], [address] RDW SD 48.3 fl High 35.1-43.9 [facility] Comment on above: Performed By: #### L 500.4050, L500.4100, L501.9520, L100.0100 #### [facility] [address] [place], [address] WBC (Bld) [#/Vol] 8.9 10*3/uL Normal 4.4-11.0 [facility] Comment on above: Performed By: #### L 500.4050, L500.4100, L501.9520, L100.0100 #### [facility] [address] [place], [address] Calculated very low density lipoprotein (VLDL) cholesterol measurementOrdered By: Rosibel Godfrey on 12-22-2024 Calculated very low density lipoprotein (VLDL) cholesterol measurement 18 mg/dL 5-40 [facility] VLDL Cholesterol 18 mg/dL 5-40 [facility] Carbon dioxide measurementOr dered By: Rosibel Godfrey on 12-22-2024 CO2 [Moles/Vol] 23.2 mmol/L 22.0-29.0 [facility] Chloride measurementOrdered By: Rosibel Godfrey on 12-22-2024 Chloride [Moles/Vol] 100 mmol/L 96-108 [facility] Comprehensive Metabolic Prof ilon 12-22-2024 Albumin [Mass/Vol] 3.9 g/dL Normal 3.4-4.8 [facility] Comment on above: Performed By: #### L 500.4050, L500.4100, L501.9520, L100.0100 #### [facility] [address] [place], [address] Albumin/Globulin [Mass ratio] 0.8 {ratio} Low 0.9-2.4 [facility] Comment on above: Performed By: #### L 500.4050, L500.4100, L501.9520, L100.0100 #### [facility] [address] [place], [address] ALK PHOS 94 U/L Normal 35-104 [facility] Comment on above: Performed By: #### L 500.4050, L500.4100, L501.9520, L100.0100 #### [facility] [address] [place], [address] ALT [Catalytic activity/Vol] 23 U/L Normal <=34 [facility] Comment on above: Performed By: #### L 500.4050, L500.4100, L501.9520, L100.0100 #### [facility] [address] [place], [address] Anion gap [Moles/Vol] 14 mmol/L Normal 5-15 [facility] Comment on above: Performed By: #### L 500.4050, L500.4100, L501.9520, L100.0100 #### [facility] [address] [place], [address] AST [Catalytic activity/Vol] 29 U/L Normal <=31 [facility] Comment on above: Performed By: #### L 500.4050, L500.4100, L501.9520, L100.0100 #### [facility] [address] [place], [address] Bilirubin [Mass/Vol] 0.47 mg/dL Normal 0.00-1.30 [facility] Comment on above: Performed By: #### L 500.4050, L500.4100, L501.9520, L100.0100 #### [facility] [address] [place], [address] BUN/CRE 14.2 RATIO Normal 10-20 [facility] Comment on above: Performed By: #### L 500.4050, L500.4100, L501.9520, L100.0100 #### [facility] [address] [place], [address] Calcium [Mass/Vol] 9.8 mg/dL Normal 7.6-11.0 [facility] Comment on above: Performed By: #### L 500.4050, L500.4100, L501.9520, L100.0100 #### [facility] [address] [place], [address] Chloride [Moles/Vol] 100 mmol/L Normal 96-108 [facility] Comment on above: Performed By: #### L 500.4050, L500.4100, L501.9520, L100.0100 #### [facility] [address] [place], [address] CO2 [Moles/Vol] 23.2 mmol/L Normal 22.0-29.0 [facility] Comment on above: Performed By: #### L 500.4050, L500.4100, L501.9520, L100.0100 #### [facility] [address] [place], [address] Creatinine [Mass/Vol] 0.65 mg/dL Low 0.70-1.20 [facility] Comment on above: Performed By: #### L 500.4050, L500.4100, L501.9520, L100.0100 #### [facility] [address] [place], [address] GFR/1.73 sq M.predicted among non-blacks MDRD (S/P/Bld) [Vol rate/Area] 101 mL/min/{1.73_m2} Normal >60 [facility] Comment on above: Result Comment: mL/m in/1.73m2 CKD-EPI Creatinine Equation (2020) Performed By: #### L 500.4050, L500.4100, L501.9520, L100.0100 #### [facility] [address] [place], [address] Globulin (S) [Mass/Vol] 4.7 g/dL High 2.2-4.2 [facility] Comment on above: Performed By: #### L 500.4050, L500.4100, L501.9520, L100.0100 #### [facility] [address] [place], [address] Glucose [Mass/Vol] 86 mg/dL Normal 70-99 [facility] Comment on above: Performed By: #### L 500.4050, L500.4100, L501.9520, L100.0100 #### [facility] [address] [place], [address] Potassium [Moles/Vol] 4.3 mmol/L Normal 3.3-5.1 [facility] Comment on above: Performed By: #### L 500.4050, L500.4100, L501.9520, L100.0100 #### [facility] [address] [place], [address] Sodium [Moles/Vol] 137 mmol/L Normal 133-145 [facility] Comment on above: Performed By: #### L 500.4050, L500.4100, L501.9520, L100.0100 #### [facility] [address] [place], [address] T PROT 8.5 g/dL High 5.9-8.4 [facility] Comment on above: Performed By: #### L 500.4050, L500.4100, L501.9520, L100.0100 #### [facility] [address] [place], [address] Urea nitrogen [Mass/Vol] 9 mg/dL Normal 4-19 [facility] Comment on above: Performed By: #### L 500.4050, L500.4100, L501.9520, L100.0100 #### [facility] [address] [place], [address] Eosinophil percentageOrdered By: Rosibel Godfrey on 12-22-2024 Eosinophils/100 WBC (Bld) 1.9 % 0-5 [facility] Erythrocyte distribution wid th ratioOrdered By: Rosibel Godfrey on 12-22-2024 Erythrocyte distribution width (RBC) [Ratio] 13.6 % 11.6-14.6 [facility] Erythrocyte distribution wid th standard deviationOrdered By: Rosibel Godfrey on 12-22-2024 Erythrocyte distribution width (RBC) [Entitic vol] 48.3 fL High 35.1-43.9 [facility] Erythrocyte distribution width (RBC) [Ratio] 48.3 fl High 35.1-43.9 [facility] GFR/1.73 sq M.predicted liliam g non-blacks MDRD (S/P/Bld) [Vol rate/Area]Ordered By: Rosibel Godfrey on 12-22-2024 Estimated GFR (MDRD) Non-Af Amer 101 >60 [facility] Comment on above: mL/min/1.73m2 CKD-EP I Creatinine Equation (2020) Glomerular filtration rate ( GFR) estimation/1.73 sq m using serum, plasma, or whole bOrdered By: Rosibel Godfrey on 12-22-2024 GFR/1.73 sq M.predicted among non-blacks MDRD (S/P/Bld) [Vol rate/Area] 101 mL/min/{1.73_m2} >60 [facility] Comment on above: mL/min/1.73m2 CKD-EP I Creatinine Equation (2020) Hematocrit Auto (Bld) [Volum e fraction]Ordered By: Rosibel Godfrey on 12-22-2024 Hematocrit (Bld) [Volume fraction] 45.3 % 37-47 [facility] Hemoglobin measurementOrdere d By: Rosibel Godfrey on 12-22-2024 Hemoglobin (Bld) [Mass/Vol] 14.3 g/dL 12.0-15.0 [facility] Immature granulocytes/100 WB C Auto (Bld)Ordered By: Rosibel Godfrey on 12-22-2024 Immature granulocytes/100 WBC (Bld) 0.300 % 0.0-0.9 [facility] Comment on above: IG% - Immature Granu locytes (promyelocytes, myelocytes and metamyelocytes) > 1% indicates that a LEFT SHIFT is Present. LDL calc ser/plasOrdered By: Rosibel Godfrey on 12-22-2024 Cholesterol in LDL [Mass/Vol] 125 mg/dL [facility] Comment on above: Uvyhduifqa=938-345 m g/dL & Higher Ekox=361 mg/dL or greater LDL Cholesterol, Calculated 125 mg/dL [facility] Comment on above: Bqdofwqyqm=400-581 m g/dL & Higher Kcui=653 mg/dL or greater Laboratory - Chemistry and C hemistry - challengeOrdered By: Rosibel Godfrey on 12-22-2024 AST [Catalytic activity/Vol] 29 U/L <32 [facility] Lipid Profileon 12-22-2024 CHOL:HDL 4.90 Normal [facility] Comment on above: Performed By: #### L 500.4050, L500.4100, L501.9520, L100.0100 #### [facility] [address] [place], [address] Cholesterol [Mass/Vol] 179 mg/dL Normal <=200 [facility] Comment on above: Result Comment: Chol esterol level, Desirable <200 mg/dL Borderline high cholesterol 200-239 mg/dL High cholesterol >=240 mg/dL Recommendations of the NCEP Adult Treatment Panel for the following risk-cutoff thresholds for the [place] population. Performed By: #### L 500.4050, L500.4100, L501.9520, L100.0100 #### [facility] [address] [place], [address] Cholesterol in HDL [Mass/Vol] 37 mg/dL Low [facility] Comment on above: Result Comment: [place] onal Cholesterol Education Program (NCEP) guidelines: <40 mg/dL: Low HDL-cholesterol (major risk factor for CHD) >= 60 mg/dL: High HDL-cholesterol (negative risk factor for CHD) HDL-cholesterol is affected by a number of factors, e.g. smoking, exercise, hormones, sex and age. Performed By: #### L 500.4050, L500.4100, L501.9520, L100.0100 #### [facility] [address] [place], [address] Cholesterol in LDL [Mass/Vol] 125 mg/dL Normal [facility] Comment on above: Result Comment: Bord gdepdv=535-536 mg/dL Higher Rifw=359 mg/dL or greater Performed By: #### L 500.4050, L500.4100, L501.9520, L100.0100 #### [facility] [address] [place], [address] Cholesterol in VLDL [Mass/Vol] 18 mg/dL Normal 5-40 [facility] Comment on above: Performed By: #### L 500.4050, L500.4100, L501.9520, L100.0100 #### [facility] [address] [place], [address] Triglyceride [Mass/Vol] 88 mg/dL Normal [facility] Comment on above: Result Comment: The drugs N-Acetylcysteine and Metamizole may falsely depress this assay. Normal range: <150 mg/dL Borderline High: 150-199 mg/dL High: 200-499 mg/dL Very High: >500 mg/dL Performed By: #### L 500.4050, L500.4100, L501.9520, L100.0100 #### [facility] [address] [place], [address] Lymphocytes Auto (Unsp spec) [#/Vol]Ordered By: Rosibel Godfrey on 12-22-2024 Lymphocytes (Bld) [#/Vol] 1.13 10*3/uL 0.83-4.51 [facility] Lymphocytes/100 WBC Auto (Un sp spec)Ordered By: Rosibel Godfrey on 12-22-2024 Lymphocytes/100 WBC (Bld) 12.8 % Low 19-41 [facility] MCV (mean corpuscular volume ) determinationOrdered By: Rosibel Godfrey on 12-22-2024 MCV (RBC) [Entitic vol] 96.0 fL 81-99 [facility] Mean corpuscular hemoglobin (MCH) determinationOrdered By: Rosibel Godfrey on 12-22-2024 MCH (RBC) [Entitic mass] 30.3 pg 27.0-32.0 [facility] Mean corpuscular hemoglobin concentration (MCHC) determinationOrdered By: Rosibel Godfrey on 12-22-2024 MCHC (RBC) [Mass/Vol] 31.6 g/dL Low 32-36 [facility] Mean platelet volume determi nationOrdered By: Rosibel Godfrey on 12-22-2024 Platelet mean volume (Bld) [Entitic vol] 9.0 fL 6.2-12.0 [facility] Monocyte percentageOrdered B y: Rosibel Godfrey on 12-22-2024 Monocytes/100 WBC (Bld) 8.6 % 0-10 [facility] Neutrophil percentageOrdered By: Rosibel Godfrey on 12-22-2024 Neutrophils/100 WBC (Bld) 75.7 % High 47-70 [facility] Nucleated red blood cell per centageOrdered By: Rosibel Godfrey on 12-22-2024 Nucleated RBC/100 WBC (Bld) [Ratio] 0 % 0-5 [facility] Platelet countOrdered By: Otoniel Godfrey on 12-22-2024 Platelets (Bld) [#/Vol] 403 10*3/uL 150-450 [facility] RBC Auto (Bld) [#/Vol]Ordere d By: Rosibel Godfrey on 12-22-2024 RBC (Bld) [#/Vol] 4.72 10*6/uL 4.2-5.4 [facility] Screening total cholesterol/ high density lipoprotein (HDL) cholesterol ratioOrdered By: Rosibel Godfrey on 12-22-2024 Cholesterol.total/Sylvia sterol in HDL [Mass ratio] 4.90 {ratio} [facility] Serum creatinine measurement (mass/volume)Ordered By: Rosibel Godfrey on 12-22-2024 Creatinine [Mass/Vol] 0.65 mg/dL Low 0.70-1.20 [facility] Serum globulin measurementOr dered By: Rosibel Godfrey on 12-22-2024 Globulin (S) [Mass/Vol] 4.7 g/dL High 2.2-4.2 [facility] Serum glucose measurement (m ass/volume)Ordered By: Rosibel Godfrey on 12-22-2024 Glucose [Mass/Vol] 86 mg/dL 70-99 [facility] Serum or plasma alanine quintanilla otransferase (ALT) measurementOrdered By: Rosibel Godfrey on 12-22-2024 ALT [Catalytic activity/Vol] 23 U/L <35 [facility] Serum or plasma albumin keeley urement (mass/volume)Ordered By: Rosibel Godfrey on 12-22-2024 Albumin [Mass/Vol] 3.9 g/dL 3.4-4.8 [facility] Serum or plasma albumin/glob ulin mass ratioOrdered By: Rosibel Godfrey on 12-22-2024 Albumin/Globulin [Mass ratio] 0.8 {ratio} Low 0.9-2.4 [facility] Serum or plasma alkaline daniel sphatase measurementOrdered By: Rosibel Godfrey on 12-22-2024 ALP [Catalytic activity/Vol] 94 U/L 35-104 [facility] Serum or plasma anion gap de termination (moles/volume)Ordered By: Rosibel Godfrey on 12-22-2024 Anion gap [Moles/Vol] 14 mmol/L 5-15 [facility] Serum or plasma calcium keeley urement (mass/volume)Ordered By: Rosibel Godfrey on 12-22-2024 Calcium [Mass/Vol] 9.8 mg/dL 7.6-11.0 [facility] Serum or plasma cholesterol in HDL measurement (mass/volume)Ordered By: Rosibel Godfrey on 12-22-2024 Cholesterol in HDL [Mass/Vol] 37 mg/dL Low >40 [facility] Comment on above: National Cholesterol Education Program (NCEP) guidelines:<40 mg/dL: Low HDL-cholesterol (major risk factor for CHD)>= 60 mg/dL: High HDL-cholesterol (negative risk factor for CHD)HDL-cholesterol is affected by a number of factors, e.g. smoking, exercise, hormones, sex and age. Serum or plasma cholesterol measurement (mass/volume)Ordered By: Rosibel Godfrey on 12-22-2024 Cholesterol [Mass/Vol] 179 mg/dL <201 [facility] Comment on above: Cholesterol level, D esirable <200 mg/dLBorderline high cholesterol 200-239 mg/dLHigh cholesterol >=240 mg/dLRecommendations of the NCEP Adult Treatment Panel for the following risk-cutoff thresholds for the [place] population. Serum or plasma potassium me asurementOrdered By: Rosibel Godfrey on 12-22-2024 Potassium [Moles/Vol] 4.3 mmol/L 3.3-5.1 [facility] Serum or plasma sodium measu rement (moles/volume)Ordered By: Rosibel Godfrey on 12-22-2024 Sodium [Moles/Vol] 137 mmol/L 133-145 [facility] Serum or plasma urea nitroge n measurement (mass/volume)Ordered By: Rosibel Godfrey on 12-22-2024 Urea nitrogen [Mass/Vol] 9 mg/dL 4-19 [facility] TSH DL <= 0.005 mIU/L QnOrde red By: Rosibel Godfrey on 12-22-2024 Thyroid Stimulating Hormone (TSH) 1.760 uIU/mL 0.300-4.200 [facility] TSH Qn 1.760 uIU/mL 0.300-4.200 [facility] Thyroid Stim Hormone (TSH)on 12-22-2024 TSH 1.760 uIU/mL Normal 0.300-4.200 [facility] Comment on above: Performed By: #### L 500.4050, L500.4100, L501.9520, L100.0100 #### [facility] Laboratory [address] [place], [address] Total proteinOrdered By: Harinder Godfrey on 12-22-2024 Protein [Mass/Vol] 8.5 g/dL High 5.9-8.4 [facility] Triglycerides measurementOrd ered By: Rosibel Godfrey on 12-22-2024 Triglyceride [Mass/Vol] 88 mg/dL <199 [facility] Comment on above: The drugs N-Acetylcy steine and Metamizole may falsely depress this assay. Normal range: <150 mg/dLBorderline High: 150-199 mg/dLHigh: 200-499 mg/dLVery High: >500 mg/dL White blood cell (WBC) count Ordered By: Rosibel Godfrey on 12-22-2024 WBC (Bld) [#/Vol] 8.9 10*3/uL 4.4-11.0 [facility] Internal Medicine Office Vis radha 12-18-2024 Internal Medicine Office Visit [facility] [address] [place] [address] [place] [address] OFFICE VISIT Date of Service: 12/22/24 MR#: [id number] Acct: [id number] Name: JOSE LIND Rep #: [id number] : 1965 Provider: Dr. 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 Is patient in pain?: No Allergies No Known Allergies Allergy (Verified 12/22/24 09:55) Medications ???Medication ???Instructions ???Recorded ???Confirmed ???Type loratadine 10 mg tablet 10 mg PO DAILY PRN allergy symptom s 08/23/23 12/22/24 History naproxen sodium 220 mg tablet 220 mg PO BID PRN pain 08/23/23 History (Aleve) amoxicillin 875 mg-potassium 1 tab PO Q8H #30 tabs 12/22/2401/13 Rx clavulanate 125 mg tablet peg 3350-electrolytes 236 ml PO DIRECTED 12/22/24 5 History gram-22.74 gram-6.74 gram-5.86 gram solution Nurse's Note: States she has a bump on her back that has been there for years 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 Not causing any pain. States she has been having SOB on exertion for awhile now can not go up a flight of stairs w/o feeling winded. Gets very fatigued. States she had an ekg last year and everything was wnl. States she has been having GI issues saw Dr. Rich last year and figured she would need to go back to him. States she has been having a lot of constipation, does a salt cleanse PRN and doing miralax for about a week to keep things moving. Did colonscopy in July. Since then has been having abdominal pain but is able top do ADL's. States she has also been taking leftover cipro for her abdominal cramping and it is helping, has 1 left. [facility] Medical History Wears glasses Post-menopausal Alcohol use Easy bruising Former smoker Shortness of breath on exertion History of stress test Menorrhagia History of colon polyps Surgical History Hx of colonoscopy History of hysteroscopy Status post breast reduction Family History Grandmother Breast cancer Brother Myocardial infarction Father Myocardial infarction Hypertension Heart disease Brother Cancer lymphoma Mother CVA (cerebral vascular accident) Social History (Updated 12/22/24 @ 10:[address] 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 She is due for some routine blood work and screening. She still doesn't want any immunizations. She doesn't smoke and doesn't take any prescription medications. She reports she is eating healthy and staying active at work. The patient has been having bowel problems and abdominal pain. The patient underwent a colonoscopy last year through Dr. Rich. It showed some signs of diverticulitis and colitis. She was treated with a course of cipro and flagyl. The patient reports she can't remember if she was having abdominal pain during that time. She states she took most of the antibiotics, but still had a couple doses of the cipro left. She states she has been having pain in her lower left abdomen over the last 2-3 weeks. She states it has been constant since it started. She reports it feels like a stabbing pain. She reports associated diarrhea. She denies any dark or bloody stools. She reports some nausea. She states she had some vomiting a couple of weeks ago, but that has since resolved. She reports she doesn't eat well normally stating she just grazes. She has been trying to drink more water. She thought she had some fevers, but didn't check her temperature. She reports she will start sweating and then get chilled. She states she took the left over cipro over the last few days. She has also taken some aleve which does help. She reports her pain seems to wax and wane in severity. She seems to feel that the pain is worse on the weekends. She rates her pain 2/10 currently. The patient reports she has bee (more content not included)... Normal [facility] Colonoscopy Reporton [address] [facility] Medical Records Department [address] [place] [address] Colonoscopy Report MR#: [id number] Acct: [id number] Name: JOSE LIND Rep #: [id number] : 1965 58 From: Torrey Rich DO PCP: Dr. Rosibel Godfrey MD Status:REG [facility] Patient Name: Jose Lind Procedure Date: 06/16/2024 10:16 AM Date of : 1965 Age: 58 Procedure: Colonoscopy Indications: Screening for colorectal malignant neoplasm Providers: Torrey Rich DO Medicines: Monitored Anesthesia Care Patient Profile: This is a 58 year old female. Refer to note in patient chart for documentation of history and physical. Last Colonoscopy: within the past 3 months. Complications: No immediate complications. Procedure: Pre-Anesthesia Assessment: - Prior to the procedure, a History and Physical was performed, and patient medications and allergies were reviewed. The patient is competent. The risks and benefits of the procedure and the sedation options and risks were discussed with the patient. All questions were answered and informed consent was obtained. Patient identification and proposed procedure were verified by the physician in the pre-procedure area. Mental Status Examination: alert and oriented. Airway Examination: normal oropharyngeal airway and neck mobility. Respiratory Examination: clear to auscultation. CV Examination: normal. Prophylactic Antibiotics: The patient does not require prophylactic antibiotics. Prior Anticoagulants: The patient has taken no anticoagulant or antiplatelet agents. ASA Grade Assessment: II - A patient with mild systemic disease. After reviewing the risks and benefits, the patient was deemed in satisfactory condition to undergo the procedure. The anesthesia plan was to use monitored anesthesia care (MAC). Immediately prior to administration of medications, the patient was re-assessed for adequacy to receive sedatives. The heart rate, respiratory rate, oxygen saturations, blood pressure, adequacy of pulmonary ventilation, and response to care were monitored throughout the procedure. The physical status of the patient was re-assessed after the procedure. After I obtained informed consent, the scope was passed under direct vision. Throughout the procedure, the patient's blood pressure, pulse, and oxygen saturations were monitored continuously. The Colonoscope was introduced through the anus and advanced to the cecum, identified by appendiceal orifice and ileocecal valve. The colonoscopy was performed without difficulty. The patient tolerated the procedure well. The quality of the bowel preparation was adequate. The ileocecal valve, appendiceal orifice, and rectum were photographed. Scope In: 10:31:06 AM Scope Withdrawal Time 0 hours 9 minutes 5 seconds Scope Out: 11:16:10 AM Total Procedure Duration Time 0 hours 45 minutes 4 seconds Findings: The perianal and digital rectal examinations were normal. Multiple small and large-mouthed diverticula were found in the recto-sigmoid colon, sigmoid colon and descending colon. There was narrowing of the colon in association with the diverticular opening. There was evidence of diverticular spasm. Tish-diverticular erythema was seen. There was evidence of an impacted diverticulum. Purulent discharge was seen in association with the diverticular opening, suspicious of diverticulitis. There was no evidence of diverticular bleeding. Two sessile polyps were found in the hepatic flexure. The polyps were 1 to 2 mm in size. These polyps were removed with a cold snare. Resection and retrieval were complete. Verification of patient identification for the specimen was done. Estimated blood loss was minimal. Localized moderate inflammation characterized by erythema, friability and granularity was found in the transverse colon. Biopsies were taken with a cold forceps for histology. Verification of patient identification for the specimen was done. Estimated blood loss was minimal. Impression: - Severe diverticulosis in the recto-sigmoid colon, in the sigmoid colon and in the descending colon. There was narrowing of the colon in association with the diverticular opening. There was evidence of diverticular spasm. Tish-diverticular erythema was seen. There was evidence of an impacted diverticulum. Purulent discharge was seen in association with the diverticular opening, suspicious of diverticulitis. There was no evidence of diverticular bleeding. - Two 1 to 2 mm polyps at the hepatic flexure, removed with a cold snare. Resected and retrieved. - Localized moderate inflammation was found in the transverse colon secondary to ischemic colitis. Biopsied. Recommendation: - Discharge patient to home. - Resume previous diet today. - Continue present medications. - Await pathology results (more content not included)... [facility] MR/POSTOP.ANEon 06-16-2024 MR/POSTOP.[facility] Medical Records Department [address] [place] [address] Anesthesia Postop Eval I 06/16/241125 MR#: [id number] Acct: [id number] Name: JOSE LIND Rep #: [id number] : 1965 58 From: Trini Edgar CRNA PCP: Dr. Rosibel Godfrey MD Status:REG SD Y Race: C Location: [place] [address] Anesthesia: Postop Eval I Current Vital Signs Temperature: 97 F Pulse Rate: 66 Blood Pressure: 132/101 Respiratory Rate: 18 Pulse Ox: 97 Oxygen Delivery Method: Room Air Assessment Airway patent: Yes Spontaneous unlabored respirations: Yes Mental status: Awake and Calm nausea: No Vomiting: No Anesthesia Complication: No Fluid Hydration Crystalloid volume administer (ml): 1,000 Total IV fluid infused: 1,000 Progress Note Anesthesia document: Postop Eval 1 completed: Yes 06/16/241126 Date Trini Edgar CRNA Cosigner Signature: Date CC: Signed [facility] MR/[id number] 06-16-2024 MR/POSTOPAN2 [facility] Medical Records Department [address] [place] [address] Anesthesia Postop Eval II 06/16/24 1344 MR#: [id number] Acct: [id number] Name: JOSE LIND Rep #: [id number] : 1965 58 From: Kasi Roberto MD PCP: Dr. Rosibel Godfrey MD Status:DEP [facility] Y Race: C Location: EN Anesthesia Postop Eval I Sum Postop Eval Completion status Anesthesia document: Postop Eval 1 completed: Yes Anesthesia Postop Eval I Summary Anesthesia Postop Eval I Summary: Anesthesia Postop Eval I: Assessment Summary Airway patent Yes 06/16/24 11:27 [facility]SKOB[facility] Spontaneous unlabored Yes 06/16/24 11:27 [facility]SKOB[facility] respirations Mental status Awake,Calm 06/16/24 11:27 [facility]SKOBY nausea No 06/16/24 11:27 [facility]SKOB[facility] Vomiting No 06/16/24 11:27 [facility]SKOBY Anesthesia Postop Eval I: Fluid Summary Crystalloid volume administer 1,000 06/16/24 11:27 [facility]SKOBY (ml) Colloids volume administered ( ml) Blood Product volume administered (ml) Total IV fluid infused 1,000 06/16/24 11:27 [facility]SKOBY Anesthesia Postop Eval I: Summary Notes Anesthesia Complication No 06/16/24 11:27 [facility]SKOB[facility] Anesthesia Complication Comment: Post-operative progress note Anesthesia: Postop Eval II Evaluation Mental status: Awake and Calm Pain Level: 0 nausea: No Vomiting: No Complications Anesthesia Complication: No 06/16/24 1346 Date Kasi Roberto MD Cosigner Signature: Date CC: Signed Normal [facility] Surgery Specimen Level Yary 06-16-2024 Surgery Specimen Level IV -------- Patient Age/Sex Location Account Attending Physician -------- JOSE LIND 58/F EN [id number] Torrey Rich DO -------- Specimen: [id number] Received: 06/16/24-1312 Status: TIA Gamez Num: [id number] Spec Type: COLON BX Subm Dr: Torrey Rich DO HEADER OPERATION: Colonoscopy with polypectomy, biopsy PRE-OP DIAGNOSIS: History of colonic polyps TISSUE SUBMITTED: A- Hepatic flexure polyp x2, B- Transverse colon ischemic colitis -------- MICROSCOPIC DIAGNOSIS A. Hepatic flexure polyp, polypectomy: Hyperplastic polyp. B. Transverse colon polyp, biopsy: A fragment of colonic mucosa with changes consistent with ischemic colitis. SJ.mr 06/17/2024 MICROSCOPIC DESCRIPTION Slides are reviewed. GROSS DESCRIPTION A. Received in fixative is one container labeled with the patient's name and designated Hepatic flexure polyp biopsy. The specimen consists of one irregular fragment of light veloz soft tissue that measures 1.0 x 0.5 x 0.2 cm. The specimen is totally submitted in one cassette. B. Received in fixative is one container labeled with the patient's name and designated Transverse colon biopsy. The specimen consists of one irregular fragment of light veloz soft tissue that measures 0.7 x 0.2 x 0.1 cm. The specimen is totally submitted in one cassette. AM. 06/16/2024 TC:5 [facility]:[id number] -------- Patient Age/Sex Location Account Attending Physician -------- JOSE LIND 58/F EN [id number] Torrey Rich DO -------- Signed (signature on file) Dr. King Katz MD 06/17/24 1118 -------- Normal [facility] Comment on above: Performed By: #### L 501.2450, L500.2500, L100.0100, L500.3400 #### [facility] [address] [place], [address] [id number] 01-31-2024 [id number] HNO ID: [id number] Author: LAURIE VERA RN Service: ? Author Type: Registered Nurse Type: [id number] Filed: 01/31/2024 11:17 Note Text: Patient instructed to record blood pressures at home and f/u with pcp with results. Patient states understanding of all home gooing instructions. Normal [facility] ANES POSTPROC EVALon 024 ANES POSTPROC EVAL HNO ID: [id number] Author: MARIE SNYDER APRN.CRNA Service: Anesthesiology Author Type: Nurse Business Segment Manager Type: Anesthesia Postprocedure Evaluation Filed: 01/31/2024 10:24 Note Text: POST ANESTHESIA EVALUATION NOTE : 1965 Procedure Summary Date: 01/31/24 Room / Location: SURGERY Anesthesia Start: 948 Anesthesia Stop: 1022 Procedure: COLONOSCOPY SCREENING Diagnosis: History of colonic polyps History of colonic polyps Scheduled Providers: Milli Sung MD; Marie Snyder APRN.[facility] Responsible Provider: Marie Snyder APRN.[facility] Anesthesia Type: MAC ASA Status: 2 Anesthesia Type: MAC Last Vitals Vitals Value Taken Time BP 01/31/24 1023 Temp 01/31/24 1023 Pulse 01/31/24 1023 Resp 01/31/24 1023 SpO2 01/31/24 1023 Post Anesthesia Patient Status Patient Evaluation: PACU. PACU/ICU Patient Condition: stable. Anticipated Disposition: phase 2 then home. Neurological Status: aware and responsive. Pulmonary Status: breathing comfortably on room air Airway Control: returned to baseline unsupported. Cardiovascular Status: stable. Pain Management: clinically adequate Postoperative Hydration: acceptable. Intraoperative Events: no significant anesthesia events Post Operative Nausea/Vomiting Status: no significant post operative nausea or vomiting Recommendation: continue current plan of care. Anesthesia Observations No Documentation SIGNATURE: Marie Snyder APRN.[facility] PATIENT NAME: Jose Lind DATE: January 31, 2024 TIME: 10:23 AM CSN: [id number] Normal [facility] ANES PRE-OPon 01-31-2024 ANES PRE-OP HNO ID: [id number] Author: MARIE SNYDER APRN.CRNA Service: Anesthesiology Author Type: Nurse Business Segment Manager Type: Anesthesia Preprocedure Evaluation Filed: 01/31/2024 09:42 Note Text: ANESTHESIOLOGY DAY OF SURGERY NOTE : 1965 Procedure Information Date/Time: 01/31/24 1015 Scheduled providers: Milli Sung MD; Marie Snyder APRN.[facility] Procedure: COLONOSCOPY SCREENING Location: LD SURGERY Estimated body mass index is 26.54 kg/m? as calculated from the following: Height as of 01/24/24: 177.8 cm (5' 10). Weight as of 01/24/24: 83.9 kg (185 lb). Most recent hematocrit and potassium results: Hematocrit 40.1 09/16/2012 Relevant Problems No relevant active problems I - PHYSICAL EVALUATION AIRWAY Patient intubated: No. Tracheostomy tube not present Mallampati: II. TM distance: >3 FB. Neck ROM: full ROM without neurological symptoms. Mouth opening: adequate. Short neck: no. Thick neck: no Lip Bite Test: II Microretrognathia/Konstantin ronagthia/Recessed Chin: No DENTAL Normal dental observations. Additional exam findings: no II - ANESTHESIA PLAN ASA Score: 2 Anesthetic Plan: MAC The patient is not a current smoker. NPO Status: adequate Beta Cam Administration of chronic beta cam medication not planned. Monitoring Plan Monitoring plan: standard ASA. Post Procedure Analgesic Plan Postoperative analgesic plan: per surgical service. Informed Consent Anesthetic risks, benefits, alternatives, personnel and consent discussed: yes. Patient / Responsible Libertarian agrees to proceed: yes Patient / Surrogate agrees to blood products: blood products not planned DNR status reviewed with patient and/or family prior to surgery. patient elects to suspend DNR status in the perioperative setting (Full Code). Significant changes in the patient condition since the History and Physical, not otherwise documented in primary service progress note: no. Potential Anesthesia issues that may suggest increased risk of complications or contraindication to planned procedure: none. Discussed the possibility of lip / dental damage: yes Vitals Value Taken Time BP 122/97 01/31/24 0935 Pulse 92 01/31/2434 Resp 16 01/31/24933 Temp 36.3 ?C (97.4 ?F) 01/31/24 0929 SpO2 100 % 01/31/24933 Vitals shown include unfiled device data. No current facility-administered medications on file as of 01/31/2024. Outpatient Medications as of 01/31/2024 Medication Sig - NAPROXEN SODIUM (ALEVE ORAL) Take 3 tablets by mouth as needed (joint pain). - DOXYCYCLINE MONOHYDRATE ORAL Take by mouth. (Patient not taking: Reported on 01/14/2024) - AZELAIC ACID (FINACEA TOPICAL) Apply to affected area. (Patient not taking: Reported on 01/14/2024) - aspirin, enteric coated (ECOTRIN LOW STRENGTH) 81 mg ORAL EC tablet Take one(1) tablet daily. (Patient not taking: Reported on 01/14/2024) - RED YEAST RICE EXTRACT 600 MG CAP Take one(1) tablet two(2) times daily. (Patient not taking: Reported on 01/14/2024) I have interviewed and examined the patient. I have reviewed the medical record and/or the pre-anesthesia evaluation, pertinent labs, and test results. This contains updated information obtained within 48 hours of Surgery/Procedure. SIGNATURE: Marie Snyder APRN.DIRECTOR OF [facility]IGHB[facility] PATIENT NAME: Jose Lind DATE: January 31, 2024 TIME: 9:41 AM CSN: [id number] [facility] BRIEF OP NOTon 01-31-2024 BRIEF OP NOT HNO ID: [id number] Author: MILLI SUNG MD Service: General Surgery Author Type: Physician Type: Brief Op Note Filed: 01/31/2024 10:20 Note Text: BRIEF OPERATIVE NOTE SURGERY DATE: 01/31/2024 Incision/Procedure Start Time: 9:53 Incision Close/Procedure End Time: 10:14 Surgeon(s)/Procedural ist(s) and [employer](s): sandy Procedures: Incomplete colonoscopy - to sigmoid only Anesthesia: MAC Findings: severe tortuosity of sigmoid colon precluding completion of colonoscopy Estimated Blood Loss: 0 ml Specimens: None Complications: None Closure Technique: na Preop Diagnosis: screening colonoscopy, last colonscopy 7 years ago Postop Diagnosis: incomplete colonoscopy, severe tortuosity, hemorrhoids SIGNATURE: Milli Sung MD PATIENT NAME: Jose Lind DATE: January 31, 2024 TIME: 10:17 AM Acct: [id number] [facility] HISTORY PHYSICALon HISTORY PHYSICAL HNO ID: [id number] Author: MILLI SUNG MD Service: General Surgery Author Type: Physician Type: H&P Filed: 01/31/2024 09:41 Note Text: HISTORY AND PHYSICAL Jose Lind 1965 REFERRING PHYSICIAN: Milli Sung MD CHIEF COMPLAINT: Consult (Screening for colon cancer) HPI: The patient is a 58 year old female referred for endoscopy. Jose notes that she had an attempted colonoscopy last year at [facility] and she was told that there was a kink in her colon and the colonoscopy could not be completed. She had a colonoscopy prior to this, about 7 years ago and was told to have a 5 year follow up for colon polyp The patient denies blood in stools, denies abdominal pain, and denies changes in bowel habits. The patient notes no colon cancer in immediate family. PAST MEDICAL HISTORY PAST MEDICAL HISTORY Diagnosis Date History of colonic polyps Menorrhagia Other and unspecified hyperlipidemia Seasonal allergies Unspecified essential hypertension PAST SURGICAL HISTORY PAST SURGICAL HISTORY Procedure Laterality Date ANESTHESIA RECONSTRUCTION BREAST REDUCTION CURRENT MEDICATIONS Current Outpatient Medications Medication Sig NAPROXEN SODIUM (ALEVE ORAL) Take 3 tablets by mouth as needed (joint pain). DOXYCYCLINE MONOHYDRATE ORAL Take by mouth. (Patient not taking: Reported on 01/14/2024) AZELAIC ACID (FINACEA TOPICAL) Apply to affected area. (Patient not taking: Reported on 01/14/2024) aspirin, enteric coated (ECOTRIN LOW STRENGTH) 81 mg ORAL EC tablet Take one(1) tablet daily. (Patient not taking: Reported on 01/14/2024) RED YEAST RICE EXTRACT 600 MG CAP Take one(1) tablet two(2) times daily. (Patient not taking: Reported on 01/14/2024) No current facility-administered medications for this visit. ALLERGIES: Patient has no known allergies. PERSONAL HISTORY: SOCIAL HISTORY Social History Tobacco Use Smoking status: Former Years: 20 Types: Cigarettes Quit date: 10/22/2020 Years since quittin.2 Smokeless tobacco: Never Vaping Use Vaping Use: Never used Substance Use Topics Alcohol use: Yes Comment: Occasionally Drug use: No FAMILY HISTORY FAMILY HISTORY Problem Relation Age of Onset other (cerebral vascular accident) Mother Heart Attack Father Hypertension Father Heart disease Father Lymphoma Brother Heart Attack Brother Heart Brother Stroke Maternal Grandmother Breast Cancer Paternal Grandmother REVIEW OF SYSTEMS: General: The patient denies fatigue, denies weight loss, denies weight gain, denies feeling hot, and denies feelings of cold. Eyes: The patient denies glaucoma, denies eye injury/surgery, does not wear glasses or contacts. Ear/Nose/Throat: The patient denies allergies, denies hayfever, denies ear infections, and denies bloody noses. Cardiovascular: The patient denies chest pain, denies heart disease, denies high blood pressure,denies cardiac stent, denies prior heart attack, denies irregular heart beat, denies high cholesterol, denies poor circulation, denies heart failure, other cardiac issues, denies claudication, denies cold feet, denies peripheral arterial stent. Respiratory: The patient denies tuberculosis, denies pneumonia, denies frequent cough, denies pulmonary embolism, denies shortness of breath, and denies coughing up blood. Gastrointestinal: The patient denies difficulty swallowing, denies acid reflux, denies ulcers, denies vomiting, denies jaundice/hepatitis, denies gallbladder problems, denies black or tarry stools, denies hemorrhoids, denies bleeding from rectum, denies diverticulitis, NOTES constipation, denies diarrhea, denies loss of stool control, and denies hernias. Kidney/Bladder: The patient denies kidney stones, denies urine infections, and denies bloody urine. Skin: The patient denies a history of skin cancer, denies bleeding/changing moles, and denies a history of skin rash. Neurologic: The patient denies a history of epilepsy/convulsions, denies headaches, denies head/spinal injuries, and denies stroke/TIA. Psychiatric: The patient denies psychiatric medications, denies depression, and denies voices, denies substance abuse. Endocrine: The patient denies thyroid disorders, denies diabetes, and denies hormonal problems. Hematologic: The patient denies a history of bruising, denies bleeding, and denies anemia, denies blood clots. Infections: The patient denies a history of measles and mumps, denies rheumatic fever, and denies sexually transmitted diseases. Musculoskeletal: The patient denies back pain/injury, denies back problems, denies sciatica, denies knee/foot trouble, denies arthritis, or denies gout. When was patient's last Mammogram screening? 2022 Last Colonoscopy: 2022 Maryann Hair LPN PHYSICAL EXAMINATION: General: The patient is 58 year old female, well nourished, well hydrated in no acute distress. The patient is orient (more content not included)... Normal [facility] NURSING PROGon 01-31-2024 NURSING PROG HNO ID: [id number] Author: LAURIE VERA RN Service: Nursing Author Type: Registered Nurse Type: Nursing Progress Note Filed: 01/31/2024 11:08 Note Text: 1030 Dr Sung in to see patient post op,discussed colonoscopy findings, instructed patient to f/u with gastrologist at [facility] ( [facility] Office to get appointment for patient.) Patient denies pain, n/v. Tolerating po fluids and snack. Patient expelling gas and watery discharge from rectum. Normal [facility] OPERATIVE NOon 01-31-2024 OPERATIVE NO HNO ID: [id number] Author: MILLI SUNG MD Service: General Surgery Author Type: Physician Type: Operative Report Filed: 01/31/2024 16:30 Note Text: [facility] - Operative Report - PelionEULOGIO KirklandMonisha Courtney : 1965 AGE: 58. SEX: F PATIENT TYPE: O HOSP SVC: [facility] LOCATION: [facility] ATTENDING PHYSICIAN: Milli Sung MD CSN NUMBER: [id number] DATE OF SURGERY/PROCEDURE: 01/31/2024 INCISION/PROCEDURE START TIME: 9:53 AM INCISION CLOSE/PROCEDURE END TIME: 10:14 AM PREOPERATIVE DIAGNOSIS: History of colon polyps. POSTOPERATIVE DIAGNOSIS: Incomplete colonoscopy and hemorrhoids. SURGEON: Milli Sung MD FLOOR ASSEMBLER: No Additional Staff SURGERY/PROCEDURE: Colonoscopy to sigmoid colon only. ANESTHESIA: MAC LOCATION: [facility]. INDICATIONS: Jose Lind is a 58-year-old female, who presents for a surveillance colonoscopy for history of colon polyps from a colonoscopy that was done 7 years ago. She had attempted colonoscopy last year, but she was told that she had a kink in her colon and it could not be completed. Therefore, she presents for colonoscopy. She has been counseled on the risks of procedure including, but not limited to infection, bleeding, perforation of the GI tract, injury to any internal organs, inability to complete the procedure, etc. The patient understands and agrees to proceed. DESCRIPTION OF PROCEDURE: After informed consent was given, the patient was brought to the endoscopy suite. Appropriate time-out protocol was followed. The patient was placed in the left lateral decubitus position. She was given IV sedation by the anesthesia provider. The endoscope was lubricated, carefully inserted in the patient's anus, and advanced into the rectum. It was then advanced into the sigmoid colon, however, the colonoscope could not be advanced past the sigmoid colon. Despite numerous maneuvers such as - patient repositioning, increased sedation, pressure applied to the area, withdrawal of the colonoscope, and repeated reattempts of reinsertion of the colonoscope - the colonoscope could not be advanced past the sigmoid colon. Given this, the remainder of the procedure was aborted. The patient was noted to have hemorrhoids. There was no actual narrowing or extrinsic compression that was causing any obstruction. The patient tolerated the procedure well and was brought to recovery room in stable condition. . ESTIMATED BLOOD LOSS: None. SPECIMENS: None. COMPLICATIONS: None. RECOMMENDATIONS: Order placed in [facility] for patient to have colonoscopy at [facility]. Milli Sung MD LW:[id number] /[id number] Normal [facility] NURSING PROGon 01-24-2024 NURSING PROG HNO ID: [id number] Author: TERENCE TAN, RN Service: ? Author Type: Registered Nurse Type: Nursing Progress Note Filed: 01/24/2024 15:30 Note Text: Pre-Procedure Checklist Jose Courtney Jennifereliezer [phone] (home) 1965 58 year old Body mass index is 26.54 kg/m?. Allergies: No Known Allergies Procedure: screening colonoscopy Date of Procedure: 01-31-24 Smoke: No Alcohol: Yes (3-4 a week) Street Drugs: No Diabetic: No Insulin: No Problems with Anesthesia (Self or Family?) No Proctologist: none Saw technology coach in the last 6 months? 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 Hx of HTN. BP has been normal for several months. Not on any meds. Normal [facility] CNOVon 01-14-2024 CN Office Visit ([facility] ) JOSE LIND ([id number]) 1965 F Date Time Provider Department 01/14/24 11:00 AM MILLI SUNGS During your visit today, we recorded the following information about you: Temperature Pulse Blood pressure Weight 97.2 degrees 87/minute 122/82 84.2 kg Height 1.778 m Maryann Hair LPN 01/14/2024 11:09 AM Signed REVIEW OF SYSTEMS: General: The patient denies fatigue, denies weight loss, denies weight gain, denies feeling hot, and denies feelings of cold. Eyes: The patient denies glaucoma, denies eye injury/surgery, does not wear glasses or contacts. Ear/Nose/Throat: The patient denies allergies, denies hayfever, denies ear infections, and denies bloody noses. Cardiovascular: The patient denies chest pain, denies heart disease, denies high blood pressure,denies cardiac stent, denies prior heart attack, denies irregular heart beat, denies high cholesterol, denies poor circulation, denies heart failure, other cardiac issues, denies claudication, denies cold feet, denies peripheral arterial stent. Respiratory: The patient denies tuberculosis, denies pneumonia, denies frequent cough, denies pulmonary embolism, denies shortness of breath, and denies coughing up blood. Gastrointestinal: The patient denies difficulty swallowing, denies acid reflux, denies ulcers, denies vomiting, denies jaundice/hepatitis, denies gallbladder problems, denies black or tarry stools, denies hemorrhoids, denies bleeding from rectum, denies diverticulitis, NOTES constipation, denies diarrhea, denies loss of stool control, and denies hernias. Kidney/Bladder: The patient denies kidney stones, denies urine infections, and denies bloody urine. Skin: The patient denies a history of skin cancer, denies bleeding/changing moles, and denies a history of skin rash. Neurologic: The patient denies a history of epilepsy/convulsions, denies headaches, denies head/spinal injuries, and denies stroke/TIA. Psychiatric: The patient denies psychiatric medications, denies depression, and denies voices, denies substance abuse. Endocrine: The patient denies thyroid disorders, denies diabetes, and denies hormonal problems. Hematologic: The patient denies a history of bruising, denies bleeding, and denies anemia, denies blood clots. Infections: The patient denies a history of measles and mumps, denies rheumatic fever, and denies sexually transmitted diseases. Musculoskeletal: The patient denies back pain/injury, denies back problems, denies sciatica, denies knee/foot trouble, denies arthritis, or denies gout. When was patient's last Mammogram screening? 2022 Last Colonoscopy: 2022 NAI Cardona Linda Marie, MD 01/15/2024 3:32 PM Signed HISTORY AND PHYSICAL Jose Lind 1965 REFERRING PHYSICIAN: Milli Sung MD CHIEF COMPLAINT: Consult (Screening for colon cancer) HPI: The patient is a 58 year old female referred for endoscopy. Jose notes that she had an attempted colonoscopy last year at [facility] and she was told that there was a kink in her colon and the colonoscopy could not be completed. She had a colonoscopy prior to this, about 7 years ago and was told to have a 5 year follow up for colon polyp The patient denies blood in stools, denies abdominal pain, and denies changes in bowel habits. The patient notes no colon cancer in immediate family. PAST MEDICAL HISTORY Diagnosis Date History of colonic polyps Menorrhagia Other and unspecified hyperlipidemia Seasonal allergies Unspecified essential hypertension PAST SURGICAL HISTORY Procedure Laterality Date ANESTHESIA RECONSTRUCTION BREAST REDUCTION Current Outpatient Medications Medication Sig NAPROXEN SODIUM (ALEVE ORAL) Take 3 tablets by mouth as needed (joint pain). DOXYCYCLINE MONOHYDRATE ORAL Take by mouth. (Patient not taking: Reported on 01/14/2024) AZELAIC ACID (FINACEA TOPICAL) Apply to affected area. (Patient not taking: Reported on 01/14/2024) aspirin, enteric coated (ECOTRIN LOW STRENGTH) 81 mg ORAL EC tablet Take one(1) tablet daily. (Patient not taking: Reported on 01/14/2024) RED YEAST RICE EXTRACT 600 MG CAP Take one(1) tablet two(2) times daily. (Patient not taking: Reported on 01/14/2024) No current facility-administered medications for this visit. ALLERGIES: Patient has no known allergies. PERSONAL HISTORY: Social History Tobacco Use Smoking status: Former Years: 20 Types: Cigarettes Quit date: 10/22/2020 Years since quittin.2 Smokeless tobacco: Never Vaping Use Vaping Use: Never used Substance Use Topics Alcohol use: Yes Comment: Occasionally Drug use: No FAMILY HISTORY Problem Relation Age of Onset other (cerebral vascular accident) Mother Heart Attack Father Hypertension Father Heart disease Father Lymphoma Brother Hear (more content not included)... Normal [facility] Ilana 01-14-2024 JU Telephone ([employer]) JOSE LIND ([id number]) 1965 F Date Time Provider Department 01/14/24 MILLI SUNG During your visit today, we recorded the following information about you: Evelia Connolly 01/14/2024 11:26 AM Signed 01/31/2024 [facility]ON [facility] Allergies As of Date: 01/14/2024 (No Known Allergies) Date Reviewed: 01/14/2024 Reviewed by: Maryann Hair LPN - Fully Assessed Reason for Visit: 01/31/2024 [facility]ON [facility]I [Other] Prescriptions as of 08/26/2024 - NAPROXEN SODIUM (ALEVE ORAL) Take 3 tablets by mouth as needed (joint pain). - DOXYCYCLINE MONOHYDRATE ORAL Take by mouth. - AZELAIC ACID (FINACEA TOPICAL) Apply to affected area. - aspirin, enteric coated (ECOTRIN LOW STRENGTH) 81 mg ORAL EC tablet Take one(1) tablet daily. - RED YEAST RICE EXTRACT 600 MG CAP Take one(1) tablet two(2) times daily. Problem List As Of Date 01/14/2024 Noted Resolved Menorrhagia [N92.0] 08/26/2012 Encounter Status:[facility] ([id number]) 1965 F Date Time Provider Department 12/26/23 [facility] During your visit today, we recorded the following information about you: Jennifer Dowell RN 12/26/2023 8:50 AM Signed Received a request for a consultation from Dr. Rosibel Godfrey at [facility]. Scheduling was unable to reach patient and a letter was mailed to her. Histories were updated in [facility] from the referral information. Jennifer Dowell RN Allergies As of Date: 12/26/2023 (No Known Allergies) Date Reviewed: 09/25/2012 Reviewed by: Cristina Rooney Ma - Fully Assessed Reason for Visit: Consult [[id number]] Prescriptions as of 12/26/2023 - NAPROXEN SODIUM (ALEVE ORAL) Take by mouth. - DOXYCYCLINE MONOHYDRATE ORAL Take by mouth. - AZELAIC ACID (FINACEA TOPICAL) Apply to affected area. - aspirin, enteric coated (ECOTRIN LOW STRENGTH) 81 mg ORAL EC tablet Take one(1) tablet daily. - RED YEAST RICE EXTRACT 600 MG CAP Take one(1) tablet two(2) times daily. Problem List As Of Date 12/26/2023 Noted Resolved Menorrhagia [N92.0] 08/26/2012 Encounter Status:Closed by JENNIFER DOWELL on 12/26/23 Normal [facility] CNCOon 12-17-2023 CNCO Letter Text Normal [facility] Absolute lymphocyte countOrd ered By: Rosibel Godfrey on 10-18-2023 Lymphocytes Auto (Unsp spec) [#/Vol] 1.52 10*3/uL 0.83-4.51 [facility] Basophil percentageOrdered B y: Rosibel Godfrey on 10-18-2023 Basophils/100 WBC (Bld) 0.7 % 0-1 [facility] Bilirubin [Mass/Vol] 0.50 mg/dL 0.20-1.00 [facility] Comment on above: For patients on eltr ombopag therapy, use of Dimension [place] TBIL is not recommended. Chloride [Moles/Vol] 106 mmol/L 98-107 [facility] Cholesterol [Mass/Vol] 259 mg/dL <200 [facility] Comment on above: <200 mg/dL Desirable 200-240 mg/dL Borderline >240 mg/dL High Risk Eosinophils/100 WBC (Bld) 3.5 % 0-5 [facility] Glucose [Mass/Vol] 85 mg/dL 74-106 [facility] Neutrophils (Bld) [#/Vol] 3.4 10*3/uL 2.0-7.7 [facility] Neutrophils/100 WBC (Bld) 59.3 % 47-70 [facility] Potassium [Moles/Vol] 4.4 mmol/L 3.5-5.1 [facility] Protein [Mass/Vol] 8.1 g/dL 6.4-8.2 [facility] Sodium [Moles/Vol] 140 mmol/L 136-145 [facility] Triglyceride [Mass/Vol] 121 mg/dL <199 [facility] Comment on above: The drugs N-Acetylcy steine and Metamizole may falsely depress this assay.Serum Triglycerides Reference Interval Normal <150 mg/dL Borderline high 150 - 199 mg/dL High 200 - 499 mg/dL Very High > or = 500 mg/dL WBC (Bld) [#/Vol] 5.8 10*3/uL 4.4-11.0 [facility] Blood erythrocytes count (nu mber/volume)Ordered By: Rosibel Godfrey on 10-18-2023 RBC (Bld) [#/Vol] 4.72 10*6/uL 4.2-5.4 [facility] Blood hemoglobin measurement (mass/volume)Ordered By: Rosibel Godfrey on 10-18-2023 Hemoglobin (Bld) [Mass/Vol] 15.7 g/dL 12.0-15.0 [facility] Blood lymphocytes/100 leukoc ytesOrdered By: Rosibel Godfrey on 10-18-2023 Lymphocytes/100 WBC (Bld) 26.3 % 19-41 [facility] Blood monocytes/100 leukocyt esOrdered By: Rosibel Godfrey on 10-18-2023 Monocytes/100 WBC (Bld) 10.0 % 0-10 [facility] Blood platelet mean volumeOr dered By: Rosibel Godfrey on 10-18-2023 Platelet mean volume (Bld) [Entitic vol] 9.7 fL 6.2-12.0 [facility] Determination of erythrocyte mean corpuscular volume (MCV)Ordered By: Rosibel Godfrey on 10-18-2023 MCV (RBC) [Entitic vol] 100.8 fL 81-99 [facility] Hematocrit Auto (Bld) [Volum e fraction]Ordered By: Rosibel Godfrey on 10-18-2023 Hematocrit (Bld) [Volume fraction] 47.6 % 37-47 [facility] Laboratory - Chemistry and C hemistry - challengeOrdered By: Rosibel Godfrey on 10-18-2023 ALP [Catalytic activity/Vol] 95 U/L 45-117 [facility] ALT [Catalytic activity/Vol] 26 U/L 13-56 [facility] CO2 [Moles/Vol] 29.0 mmol/L 21.0-32.0 [facility] Globulin (S) [Mass/Vol] 4.4 g/dL 2.2-4.2 [facility] Urea nitrogen/Creatinine [Mass ratio] 14.8 mg/mg 10-20 [facility] Laboratory - Hematology and Cell countsOrdered By: Rosibel Godfrey on 10-18-2023 Erythrocyte distribution width (RBC) [Entitic vol] 51.2 fL 35.1-43.9 [facility] Erythrocyte distribution width (RBC) [Ratio] 13.6 % 11.6-14.6 [facility] Immature granulocytes/100 WBC (Bld) 0.200 % 0.0-0.9 [facility] Comment on above: IG% - Immature Granu locytes (promyelocytes, myelocytes and metamyelocytes) > 1% indicates that a LEFT SHIFT is Present. MCH (RBC) [Entitic mass] 33.3 pg 27.0-32.0 [facility] Nucleated RBC/100 WBC (Bld) [Ratio] 0 % 0-5 [facility] MCHC Auto (RBC) [Mass/Vol]Or dered By: Rosibel Godfrey on 10-18-2023 MCHC (RBC) [Mass/Vol] 33.0 g/dL 32-36 [facility] No Panel InformationOrdered By: Rosibel Godfrey on 10-18-2023 Estimated GFR (MDRD) Amer 103 mL/min >60 [facility] Comment on above: GFR Calc Estimated GFR (MDRD) Non-Af Amer 85 mL/min >60 [facility] Comment on above: Non- GFR Calc Platelets bldOrdered By: Harinder Godfrey on 10-18-2023 Platelets (Bld) [#/Vol] 231 10*3/uL 150-450 [facility] Serum or plasma albumin keeley urement (mass/volume)Ordered By: Rosibel Godfrey on 10-18-2023 Albumin [Mass/Vol] 3.7 g/dL 3.2-5.0 [facility] Serum or plasma albumin/glob ulin mass ratioOrdered By: Rosibel Godfrey on 10-18-2023 Albumin/Globulin [Mass ratio] 0.8 {ratio} 0.9-2.4 [facility] Serum or plasma calcium keeley urement (mass/volume)Ordered By: Rosibel Godfrey on 10-18-2023 Calcium [Mass/Vol] 9.0 mg/dL 8.5-10.1 [facility] Serum or plasma cholesterol in HDL measurement (mass/volume)Ordered By: Rosibel Godfrey on 10-18-2023 Cholesterol in HDL [Mass/Vol] 62 mg/dL >40 [facility] Comment on above: The drugs N-Acetylcy steine and Metamizole may falsely depress this assay. Reference Range HDL <40 mg/dL Low HDL Cholesterol HDL >or= 60 mg/dL High HDL Cholesterol Serum or plasma cholesterol in VLDL measurement (mass/volume)Ordered By: Rosibel Godfrey on 10-18-2023 Cholesterol in VLDL [Mass/Vol] 24 mg/dL 5-40 [facility] Serum or plasma creatinine m easurement (mass/volume)Ordered By: Rosibel Godfrey on 10-18-2023 Creatinine [Mass/Vol] 0.74 mg/dL 0.55-1.02 [facility] Comment on above: The validity of the calculated GFR & GFRAA in patients over 70 years has not been determined. Clinical correlation is essential. Serum or plasma low density lipoprotein (LDL) cholesterol measurement (mass/volume)Ordered By: Rosibel Godfrey on 10-18-2023 Cholesterol in LDL [Mass/Vol] 173 mg/dL 0-130 [facility] Serum or plasma urea nitroge n measurement (mass/volume)Ordered By: Rosibel Godfrey on 10-18-2023 Urea nitrogen [Mass/Vol] 11 mg/dL 7-18 [facility] Thin prep Papanicolaou smear with manual screeningOrdered By: Rosibel Godfrey on 10-18-2023 Thin prep Papanicolaou smear with manual screening 18 U/L 15-37 [facility] Thin prep Papanicolaou smear with manual screening 5 5-15 [facility] OPERATIVE PROCEDURESon 02-23 OPERATIVE PROCEDURES [facility] OPERATIVE REPORT NAME ACCOUNT SEX AGE ADMIT DISCHARGE PT MED. RECORD# NUMBER DATE DATE TYPE DIOGO [id number] Carla 56 02/16/22 02/16/22 2 JOSE Courtney [address] ROOM: [facility] DATE OF : 1965 DICTATING PHYSICIAN: Dilia Fuentes DATE OF SURGERY: February 16, 2022 SURGEON: Dilia Fuentes MD FLOOR ASSEMBLER: ANESTHESIOLOGIST: ANESTHETIC: MAC. PREOPERATIVE DIAGNOSIS: Screening colonoscopy. POSTOPERATIVE DIAGNOSIS: Colonic stricture. OPERATION PERFORMED: Colonoscopy. COMPLICATIONS: None. ESTIMATED BLOOD LOSS: None. DRAINS: None. SPECIMENS: None. SIGNIFICANT FINDINGS: Stricture at approximately 20 cm from the anal verge prohibiting advancement of the colonoscope any further. DISPOSITION: Home. Diet: Regular. Activity: Regular. Medications: Regular. Follow up in Dr. Fuentes's clinic in 2 weeks. I recommend obtaining a barium enema to complete the screening process, and further recommendations will be based off of those findings. DESCRIPTION OF OPERATION: Following the initiation of MAC anesthesia, the patient was placed in the left lateral decubitus position. A digital rectal examination was performed. There were no findings on digital rectal examination. The flexible colonoscope was then introduced into the anus and advanced under direct visualization. However, upon reaching 20 cm within the sigmoid colon, I was unable to advance the scope secondary to a stricture within the colon. Multiple attempts were made to Page 1 of 2 JOSE LIND Operative Report JOSE LIND : 1965 reposition the patient, including the supine position, right lateral decubitus, and Trendelenburg positioning. However, this did not alleviate the stricture and the scope was unable to be advanced. The scope was slowly withdrawn from that vantage point. The bowel prep was good. There were no abnormalities. The patient was then awakened and taken to the PACU in good and stable condition. Dictated By: Dilia Fuentes MD 02/16/22 11:09 JOB #: [id number] Transcribed By: татьяна 02/16/22 11:37 Electronically signed by: E-SIGN DR. FUENTES 02/23/22 10:59 Page 2 of 2 JOSE LIND Operative Report Normal [facility] 3D MAMM BILAT SCREENon 01-26 3D MAMM BILAT SCREEN [place] [address] Patient: JOSE LIND. Phone#: : 1965 Age: 56 Gender: F Pt. Type: Out Account: [id number] Location: 052 Ordering: ROC TOBIAS Exam Date: 01/26/2022/16:08 Family Phys: Charge Code: [id number] Physician: Lea Order #: [id number] DLP Dose#: PROCEDURE: BILATERAL SCREENING BREAST TOMOSYNTHESIS MAMMOGRAM WITH CAD COMPARISON: [facility], BILAT SCREENING, 05/05/2019, 11:42. [facility], BILAT SCREENING, 10/04/2015, 9:45. INDICATIONS: screening BREAST COMPOSITION: Scattered fibroglandular densities(25-50% glandular). FINDINGS: DIAGNOSTIC CATEGORY 1--NEGATIVE NO CHANGE FROM COMPARISON ASSESSMENT. RIGHT BREAST: No significant suspicious finding. No significant change has occurred. LEFT BREAST: No significant suspicious finding. No significant change has occurred. RECOMMENDATIONS: ROUTINE MAMMOGRAM AND CLINICAL EVALUATION IN 12 MONTHS. PLEASE NOTE: A NORMAL MAMMOGRAM DOES NOT EXCLUDE THE POSSIBILITY OF BREAST CANCER. A CLINICALLY SUSPICIOUS PALPABLE LUMP SHOULD BE BIOPSIED. THIS FACILITY UTILIZES A REMINDER SYSTEM TO ENSURE THAT ALL PATIENTS RECEIVE REMINDER LETTERS FOR APPOINTMENTS. THIS INCLUDES REMINDERS FOR ROUTINE MAMMOGRAMS, DIAGNOSITC MAMMOGRAMS, OR OTHER BREAST IMAGING INTERVENTIONS WHEN APPROPRIATE. THIS PATIENT WILL BE PLACED IN THE APPROPRIATE REMINDER SYSTEM. Dictated by: Katt Agrawal MD on 01/26/2022 at 18:39 Approved by: Katt Agrawal MD on 01/26/2022 at 18:41 Normal [facility] CBC + DIFFon 05-31-2021 Baso # 0.10 x10EE3/UL Normal 0.00 - 0.10 [facility] Comment on above: Performed By: #### 2 73646 #### [facility],[address] [place] [address]84 Basophils/100 WBC (Bld) 0.9 % Normal 0.0 - 2.0 [facility] Comment on above: Performed By: #### 2 77652 #### [facility],[address] [place] [address] CBC + DIFF Normal [facility] Comment on above: Result Comment: CBC- COMPLETE BLOOD COUNT Performed By: #### 2 76002 #### [facility],[address] [place] [address] EO # 0.10 x10EE3/UL Normal 0.00 - 0.50 [facility] Comment on above: Performed By: #### 2 64905 #### [facility],[address] [place] [address] Eosinophils/100 WBC (Bld) 2.7 % Normal 0.0 - 7.0 [facility] Comment on above: Performed By: #### 2 59831 #### [facility],[address] [place] [address] Erythrocyte distribution width (RBC) [Ratio] 14.3 % Normal 12.0 - 15.6 [facility] Comment on above: Performed By: #### 2 54587 #### [facility],[address] [place] [address] Hematocrit (Bld) [Volume fraction] 45.1 % Normal 34.0 - 46.0 [facility] Comment on above: Performed By: #### 2 47169 #### [facility],[address] [place], [place] [id number] Hemoglobin (Bld) [Mass/Vol] 15.0 g/dL Normal 12.0 - 16.0 [facility] Comment on above: Performed By: #### 2 28958 #### [facility],[address] [place] [address] Lymph # 1.10 x10EE3/UL Normal 0.80 - 2.80 [facility] Comment on above: Performed By: #### 2 35693 #### [place] [address] Lymphocytes/100 WBC (Bld) 20.4 % Normal 20.0 - 45.0 [facility] Comment on above: Performed By: #### 2 13041 #### [facility],[address] [place] [address] MANUAL DIFF N/A Normal [facility] Comment on above: Performed By: #### 2 33917 #### [facility],[address] [place] [address] MCH (RBC) [Entitic mass] 33 pg Normal 27 - 33 [facility] Comment on above: Performed By: #### 2 93147 #### [place] [address] MCHC 33 X10 3 Normal 32 - 36 [facility] Comment on above: Performed By: #### 2 15676 #### [place] [address] MCV (RBC) [Entitic vol] 100 fL High 80 - 99 [facility] Comment on above: Performed By: #### 2 92141 #### [facility],[address] [place] [address] Gallia # 0.50 x10EE3/UL Normal 0.20 - 1.00 [facility] Comment on above: Performed By: #### 2 64186 #### [place] [address] MONOS % 8.8 % Normal 0.0 - 10.0 [facility] Comment on above: Performed By: #### 2 59396 #### [facility],[address] [place], [place] [id number] Morphology Richard (Bld) [Interp] N/A Normal [facility] Comment on above: Result Comment: {CD] Performed By: #### 2 84420 #### [facility],[address] [place] [address] Neut # 3.70 x10EE3/UL Normal 1.50 - 7.10 [facility] Comment on above: Performed By: #### 2 64899 #### [facility],[address] [place] [address] Neutrophils/100 WBC (Bld) 67.2 % Normal 46.0 - 76.0 [facility] Comment on above: Performed By: #### 2 01710 #### [facility],[address] [place] [address] PLATELET 258 x10EE3/UL Normal 150 - 450 [facility] Comment on above: Performed By: #### 2 67160 #### [facility],[address] [place] [address] Platelet mean volume (Bld) [Entitic vol] 8.7 fL Normal 6.6 - 10.5 [facility] Comment on above: Result Comment: AUTO MATED DIFFERENTIAL Performed By: #### 2 28633 #### [facility],[address] [place] [address] RBC 4.52 x 10EE6/UL Normal 4.10 - 5.30 [facility] Comment on above: Performed By: #### 2 53175 #### [facility],[address] [place], [place] [id number] WBC 5.5 x 10EE3/UL Normal 4.5 - 10.8 [facility] Comment on above: Performed By: #### 2 26762 #### [facility],[address] [place] [address] CMP with eGFRon 05-31-2021 AGE 55 years Normal [facility] Comment on above: Performed By: #### 2 31626 #### [facility],[address],[place] [address] Albumin [Mass/Vol] 3.9 g/dL Normal 3.4 - 5.0 [facility] Comment on above: Performed By: #### 2 50582 #### [facility],[address] [place] [address] Albumin/Globulin [Mass ratio] 1.1 {ratio} Normal 0.9 - 1.6 [facility] Comment on above: Performed By: #### 2 53560 #### [facility],[address] [place] [address]14[address] ALK PHOS 77 U/L Normal 46 - 116 [facility] Comment on above: Performed By: #### 2 67100 #### [facility],[address] [place] [address] 48275 ALT [Catalytic activity/Vol] 24 U/L Normal 14 - 59 [facility] Comment on above: Performed By: #### 2 77784 #### [facility],[address] [place] [address]6496 Anion gap [Moles/Vol] 13 mmol/L Normal 10 - 20 [facility] Comment on above: Performed By: #### 2 35300 #### [facility],[address] [place] [address] 43752 AST [Catalytic activity/Vol] 18 U/L Normal 13 - 39 [facility] Comment on above: Performed By: #### 2 19074 #### [facility],[address] [place] [address] 33796 B/C RATIO 26 ratio Normal 0 - 30 [facility] Comment on above: Performed By: #### 2 10862 #### [facility],[address] [place] [address] 00698 Bilirubin [Mass/Vol] 0.6 mg/dL Normal 0.2 - 1.0 [facility] Comment on above: Performed By: #### 2 38271 #### [facility],[address] [place] [address] 36835 Calcium [Mass/Vol] 9.3 mg/dL Normal 8.5 - 10.1 [facility] Comment on above: Performed By: #### 2 80579 #### [facility],[address] [place] [address] 99678 Chloride [Moles/Vol] 105 mmol/L Normal 98 - 107 [facility] Comment on above: Performed By: #### 2 15839 #### [facility],[address] [place] [address]285 CMP with eGFR Normal [facility] Comment on above: Result Comment: COMP REHENSIVE METABOLIC PANEL Performed By: #### 2 35937 #### [facility],[address] [place] [address] 52293 CO2 [Moles/Vol] 28.5 mmol/L Normal 21.0 - 32.0 [facility] Comment on above: Performed By: #### 2 90804 #### [facility],[address] [place] [address] 77557 Creatinine [Mass/Vol] 0.80 mg/dL Normal 0.55 - 1.02 [facility] Comment on above: Performed By: #### 2 24726 #### [facility],[address] [place] [address] 87578 GFR/1.73 sq M.predicted among non-blacks MDRD (S/P/Bld) [Vol rate/Area] mL/min/{1.73_m2} Normal 60 - 999 [facility] Comment on above: Performed By: #### 2 25437 #### [facility],[address] [place] [address] 12555 Result Comment: ACCO RDING TO THE NATIONAL KIDNEY DISEASE EDUCATION PROGRAM(NKDE), A NORMAL eGFR IS A VALUE GREATER THAN OR EQUAL TO 60 ML/MIN/1.73 SQ METERS. CHRONIC KIDNEY DISEASE: <60mL/MIN/1.73 SQ METERS KIDNEY FAILURE: <15mL/MIN/1.73 SQ METERS THIS TEST SHOULD ONLY BE USED FOR PATIENTS 18 YEARS OF AGE AND OLDER. Globulin (S) [Mass/Vol] 3.6 g/dL Normal 1.5 - 3.8 [facility] Comment on above: Performed By: #### 2 39802 #### [facility],[address] [place] [address] 63585 Glucose [Mass/Vol] 93 mg/dL Normal 74 - 106 [facility] Comment on above: Performed By: #### 2 82220 #### [facility],[address] [place] [address] 97494 Potassium [Moles/Vol] 4.5 mmol/L Normal 3.5 - 5.1 [facility] Comment on above: Performed By: #### 2 80940 #### [facility],[address] [place] [address] 18834 Protein [Mass/Vol] 7.5 g/dL Normal 6.4 - 8.2 [facility] Comment on above: Performed By: #### 2 97949 #### [facility],[address] [place] [address] 80972 Sodium [Moles/Vol] 142 mmol/L Normal 136 - 145 [facility] Comment on above: Performed By: #### 2 86917 #### [facility],[address] [place] [address] 67115 Urea nitrogen [Mass/Vol] 21 mg/dL High 7 - 18 [facility] Comment on above: Performed By: #### 2 16060 #### [facility],[address] [place] [address] 13992 IRON AND TIBCon 05-31-2021 %SATURATION 32 % Normal [facility] Comment on above: Performed By: #### 2 71682 #### [facility],[address] [place] [address] 07899 Iron [Mass/Vol] 113 ug/dL Normal 50 - 170 [facility] Comment on above: Performed By: #### 2 78435 #### [facility],[address] [place] [address] 07542 TIBC 355 ug/dl Normal 250 - 450 [facility] Comment on above: Performed By: #### 2 61256 #### [facility],[address] [place] [address] 96556 UIBC 242 ug/dL Normal 155 - 355 [facility] Comment on above: Performed By: #### 2 66811 #### [facility],[address] [place] [address] 65442 LIPID PROFILEon 05-31-2021 Cholesterol [Mass/Vol] 246 mg/dL High 0 - 240 [facility] Comment on above: Performed By: #### 2 81249 #### [facility],[address] [place] [address] 88162 Cholesterol in HDL [Mass/Vol] 59 mg/dL Normal 40 - 60 [facility] Comment on above: Performed By: #### 2 44510 #### [facility],[address] [place] [address] 70296 Cholesterol in LDL [Mass/Vol] 173 mg/dL High 0 - 129 [facility] Comment on above: Performed By: #### 2 57328 #### [facility],[address] [place] [address] 82230 Cholesterol.total/Sylvia sterol in HDL [Mass ratio] 4.2 {ratio} Normal 0.0 - 5.0 [facility] Comment on above: Performed By: #### 2 52329 #### [facility],[address] [place] [address] 81945 Lipid 1996 panel Normal [facility] Comment on above: Result Comment: LIPI D PROFILE Performed By: #### 2 07364 #### [facility],[address] [place] [address] 68110 Triglyceride [Mass/Vol] 68 mg/dL Normal 0 - 150 [facility] Comment on above: Performed By: #### 2 96019 #### [facility],[address] [place] [address] 01422 T4-FREE (FREE THYROXINE)on 0 05-31-2021 Free T4 [Mass/Vol] 0.96 ng/dL Normal 0.76 - 1.46 [facility] Comment on above: Result Comment: P otential of falsely elevated results when biotin concentrations are > 10 ng/mL. Performed By: #### 2 04711 #### [facility],[address] [place] [address] 48359 TSHon 05-31-2021 TSH Qn 1.35 m[IU]/L Normal 0.35 - 3.74 [facility] Comment on above: Performed By: #### 2 45649 #### [address] [address] VitD, 1,25 Dihydroxyon 06-11 1,25 Dihydroxy VitD2 <4.0 Normal [facility] Comment on above: Performed By: #### 1 25VTD #### [facility] [address] [place] [address] 1,25 Dihydroxy VitD3 35.2 pg/mL Normal [facility] Comment on above: Performed By: #### 1 25VTD #### [facility] [address] [place] [address] Vit D,1,25 DiOH Normal 15.0-60.0 [facility] Comment on above: Result Comment: 35.2 This test was developed and its performance characteristics determined by [facility]'s Lavinia Tomlinson [facility] Pathology and [facility] [place] ([facility]). It has not been cleared or approved by the FDA. [facility] is regulated under CLIA as qualified to perform high complexity testing. This test is used for clinical purposes. It should not be regarded as investigational or for research. Performed By: #### 1 25VTD #### [facility] [address] [place] [address] HPVon 01-23-2019 HPV Interp Normal See Interp HPVN [facility] [place] Comment on above: Order Comment: Order placed by AP_HPV_ORDER rule from [id number] Result Comment: High Risk HPV Typing: NEGATIVE HPV types 16, 18, 31, 33, 35, 39, 45, 51, 52, 56, 58, 59, 66 and 68 DNA were undetectable or below the pre-set threshold. The neri High-Risk HPV DNA Test is not intended for use as a screening device for Pap normal women under age 30 and is not intended to substitute for regular Pap screening. The neri High-Risk HPV DNA Test is designed to augment existing methods for the detection of cervical disease and should be used in conjunction with clinical information derived from other diagnostic and screening tests, physical examinations and full medical history in accordance with appropriate patient management procedures. NOTE: A negative result does not preclude the presence of HPV infection because results depend on adequate specimen collection, absence of inhibitors and sufficient DNA to be detected. See Interp HPVN Performed By: #### H PV #### [place] [address] HPV Source Cervix Normal [facility] [place] Comment on above: Order Comment: Order placed by AP_HPV_ORDER rule from [id number] Performed By: #### H PV #### [place] [address] [employer] Cytology Reporton 2018 [employer] Cytology Report . Pathology Reports Accession: Collected Date/Time: Received Date/Time: Pathologist: [id number] 01/10/2019 09:52 EDT 01/10/2019 18:00 EDT [employer] Cyt[facility] Report SPECIMEN: Specimen Description: Liquid Prep w/ HPV Specimen: Cervical Screening or Diagnostic: Screening RELEVANT HISTORY: LMP: 03-22-18 [id number] SPECIMEN ADEQUACY: SATISFACTORY FOR EVALUATION ENDOCERVICAL/TRANSFOR MATIONAL ZONE COMPONENT ABSENT/INSUFFICIENT INTERPRETATION/RESULT S: NEGATIVE FOR INTRAEPITHELIAL LESION OR MALIGNANCY ADJUNCTIVE TESTING: HIGH RISK HPV DNA TESTING ORDERED, REPORT TO FOLLOW UNDER SEPARATE COVER Electronically Signed by Pathology report verified by [facility] Screened by: GL Electronically signed by Jane Kearns Sign-Out Date: 01/17/2019 15:15 Performing Lab: [place] [id number] [facility] Disclaimer The Pap test is a screening test for cervical cancer. As evidenced by published data, it is subject to both inherent false negative and false positive results. Your patient's results should be interpreted in context with pertinent clinical history including gynecological examination. Normal [facility] [place] Comment on above: Performed By: #### G YCR #### [facility] [address] [place] [address] Vital Signs Date Time Vital Sign Value Performing Clinician Facility 05-08-2025 09:09-0400 Diastolic blood pressure 110 mm[Hg] Rowan Mcclelland HOSPITAL STAFF PHARMACIST Work Phone: [facility] 05-08-2025 09:09-0400 Heart rate 78 /min Rowan Joely HOSPITAL STAFF PHARMACIST Work Phone: [facility] 05-08-2025 09:09-0400 Systolic blood pressure 145 mm[Hg] Rowan Joely HOSPITAL STAFF PHARMACIST Work Phone: [facility] 05-08-2025 08:59-0400 Body height 177.8 cm Rowan Joely HOSPITAL STAFF PHARMACIST Work Phone: [facility] 05-08-2025 08:59-0400 Body mass index (BMI) [Ratio] 24.68 kg/m2 Rowan Joely HOSPITAL STAFF PHARMACIST Work Phone: [facility] 05-08-2025 08:59-0400 Body weight 78.02 kg Rowan Joely HOSPITAL STAFF PHARMACIST Work Phone: [facility] 04-07-2025 09:44-0400 Body mass index (BMI) [Ratio] 24.92 kg/m2 Madi Pichardokins DO Work Phone: [facility] 04-07-2025 09:44-0400 Body temperature 97.39 [degF] Madi Annette DO Work Phone: [facility] 04-07-2025 09:44-0400 Body weight 78.79 kg Madi Annette DO Work Phone: [facility] 04-07-2025 09:44-0400 Diastolic blood pressure 95 mm[Hg] Madi Pichardokins DO Work Phone: [facility] 04-07-2025 09:44-0400 Heart rate 79 /min Madi Pichardokins DO Work Phone: [facility] 04-07-2025 09:44-0400 Systolic blood pressure 128 mm[Hg] Madi Pichardokins DO Work Phone: [facility] 04-01-2025 16:23-0400 Body temperature 97.3 [degF] Radha Goode MD Work Phone: [facility] 04-01-2025 16:23-0400 Diastolic blood pressure 66 mm[Hg] Radha Goode MD Work Phone: [facility] 04-01-2025 16:23-0400 Heart rate 66 /min Radha Goode MD Work Phone: [facility] 04-01-2025 16:23-0400 Respiratory rate 16 /min Radha Goode MD Work Phone: [facility] 04-01-2025 16:23-0400 SaO2% (BldA) [Mass fraction] 97 % Radha Goode MD Work Phone: [facility] 04-01-2025 16:23-0400 Systolic blood pressure 122 mm[Hg] Radha Goode MD Work Phone: [facility] 04-01-2025 00:04-0400 Body mass index (BMI) [Ratio] 24.77 kg/m2 Radha Goode MD Work Phone: [facility] 04-01-2025 00:04-0400 Body weight 78.3 kg Radha Goode MD Work Phone: [facility] 03-16-2025 10:50-0400 Body height 177.8 cm Radha Goode MD Work Phone: [facility] 03-16-2025 08:00-0400 Body temperature 98.1 [degF] Dr. Rosibel Godfrey MD Work Phone: [facility] 03-16-2025 08:00-0400 Diastolic blood pressure 78 mm[Hg] Dr. Rosibel Godfrey MD Work Phone: [facility] 03-16-2025 08:00-0400 Heart rate 87 /min Dr. Rosibel Godfrey MD Work Phone: [facility] 03-16-2025 08:00-0400 Respiratory rate 90 /min Dr. Rosibel Godfrey MD Work Phone: [facility] 03-16-2025 08:00-0400 SaO2% (BldA) [Mass fraction] 98 % Dr. Rosibel Godfrey MD Work Phone: [facility] 03-16-2025 08:00-0400 Systolic blood pressure 112 mm[Hg] Dr. Rosibel Godfrey MD Work Phone: [facility] 03-16-2025 03:32-0400 Body height 177.[address] Rosibel Godfrey MD Work Phone: [facility] 03-16-2025 03:32-0400 Body mass index (BMI) [Ratio] 25.8 kg/m2 Dr. Rosibel Godfrey MD Work Phone: [facility] 03-16-2025 03:32-0400 Body weight 81.[address] Rosibel Godfrey MD Work Phone: [facility] 12-22-2024 10:03-0500 Body height 177.[address] Rosibel Godfrey MD Work Phone: [facility] 12-22-2024 10:03-0500 Body mass index (BMI) [Ratio] 25.7 kg/m2 Dr. Rosibel Godfrey MD Work Phone: [facility] 12-22-2024 10:03-0500 Body temperature 97 [degF] Dr. Rosibel Godfrey MD Work Phone: [facility] 12-22-2024 10:03-0500 Body weight 81.[address] Rosibel Godfrey MD Work Phone: [facility] 12-22-2024 10:03-0500 Diastolic blood pressure 74 mm[Hg] Dr. Rosibel Godfrey MD Work Phone: [facility] 12-22-2024 10:03-0500 Heart rate 71 /min Dr. Rosibel Godfrey MD Work Phone: [facility] 12-22-2024 10:03-0500 Respiratory rate 18 /min Dr. Rosibel Godfrey MD Work Phone: [facility] 12-22-2024 10:03-0500 SaO2% (BldA) [Mass fraction] 99 % Dr. Rosibel Godfrey MD Work Phone: [facility] 12-22-2024 10:03-0500 Systolic blood pressure 132 mm[Hg] Dr. Rosibel Godfrey MD Work Phone: [facility] 01-14-2024 11:07-0400 Body height 177.8 cm Milli Sung MD Work Phone: [facility] 01-14-2024 11:07-0400 Body temperature 97.2 [degF] Milli Sung MD Work Phone: [facility] 01-14-2024 11:07-0400 Body weight 84.19 kg Milli Sung MD Work Phone: [facility] 01-14-2024 11:07-0400 Diastolic blood pressure 82 mm[Hg] Milli Sung MD Work Phone: [facility] 01-14-2024 11:07-0400 Heart rate 87 /min Milli Sung MD Work Phone: [facility] 01-14-2024 11:07-0400 SaO2% (BldA) [Mass fraction] 97 % Milli Sung MD Work Phone: [facility] 01-14-2024 11:07-0400 Systolic blood pressure 122 mm[Hg] Milli Sung MD Work Phone: [facility] 08-23-2023 13:57-0400 Body height 177.[address] Rosibel Godfrey Work Phone: [facility] 08-23-2023 13:57-0400 Body mass index (BMI) [Ratio] 26.5 kg/m2 Dr. Rosibel Godfrey Work Phone: [facility] 08-23-2023 13:57-0400 Body temperature 97.4 [degF] Dr. Rosibel Godfrey Work Phone: [facility] 08-23-2023 13:57-0400 Body weight 83.[address] Rosibel Godfrey Work Phone: [facility] 08-23-2023 13:57-0400 Diastolic blood pressure 84 mm[Hg] Dr. Rosibel Godfrey Work Phone: [facility] 08-23-2023 13:57-0400 Heart rate 56 /min Dr. Rosibel Godfrey Work Phone: [facility] 08-23-2023 13:57-0400 SaO2% (BldA) [Mass fraction] 97 % Dr. Rosibel Godfrey Work Phone: [facility] 08-23-2023 13:57-0400 Systolic blood pressure 132 mm[Hg] Dr. Rosibel Godfrey Work Phone: [facility] Encounters Encounter Date Encounter Type Care Provider Facility Start: 06-11-2025 ambulatory Rosibel Godfrey Facility :[facility] Start: 06-10-2025 End: 06-10-2025 Phys/qhp telephone evaluation 21-30 min Madi Bryant DO Work Phone: [facility] Comment on above: Diverticulitis of co robert with perforation (Primary Dx) Start: 06-03-2025 End: 06-03-2025 [facility] Start: 05-19-2025 End: 05-19-2025 Orders Only Madi Bryant DO Work Phone: [facility] Comment on above: Diverticulitis of co robert with perforation (Primary Dx) Start: 05-08-2025 End: 05-08-2025 Office outpatient visit 25 minutes Rowan Mcclelland CNP Work Phone: [facility] Comment on above: Nonischemic cardiomy opathy (HCC) (Primary Dx); Coronary artery calcification; Tachycardia; Preoperative cardiovascular examination Start: 05-08-2025 End: 05-08-2025 Patient encounter status Rowan Mcclelland CNP Work Phone: [facility] Start: 05-08-2025 End: 05-11-2025 ambulatory PROVIDER NOT IN SYSTEM [facility] Start: 05-08-2025 End: 05-11-2025 Encounter for preprocedural cardiovascular examination ROWAN MCCLELLAND [facility] Start: 05-07-2025 End: 05-07-2025 Orders Only Rowan Mcclelland CNP Work Phone: [facility] Comment on above: Abnormal stress test (Primary Dx) Start: 04-16-2025 End: 04-16-[address] Rosibel Godfrey MD Work Phone: [facility] Work Phone: Start: 04-16-2025 End: 04-16-2025 Patient encounter procedure Torrey Rich DO -[facility] Work Phone: Start: 04-15-2025 End: 04-15-2025 Phys/qhp telephone evaluation 11-20 min Madi Bryant DO Work Phone: [facility] Comment on above: Diverticulitis of co robert with perforation (Primary Dx) Start: 04-15-2025 End: 04-15-2025 ambulatory MADI BRYANT [facility] Start: 04-10-2025 ambulatory MADI BRYANT [facility] Amb[facility] Start: 04-07-2025 End: 04-07-2025 Postop follow up visit related to original px Madi Miriam Bryant DO Work Phone: [facility] [place] Comment on above: Diverticulitis of co robert with perforation (Primary Dx) Start: 04-07-2025 End: 04-07-2025 ambulatory PHYSICIAN NO [facility] Start: 04-04-2025 End: 04-04-2025 Documentation procedure Sully Diallo RN [facility] Start: 03-16-2025 End: 04-01-2025 Evaluation and management of inpatient Tevin Addison MD Work Phone: [facility] Start: 03-16-2025 ambulatory Pedro Mac lity:[facility] Start: 03-16-2025 Non-patient / Non-visit Dr. Eliezer Franklin MD -[facility] Start: 03-16-2025 End: 03-16-2025 Emergency department patient visit Dr. Rosibel Godfrey MD Work Phone: -Emergency Department Work Phone: Start: 01-26-2025 ambulatory Rosibel Godfrey Facility :[facility] Start: 01-26-2025 Non-patient / Non-visit Dr. Miriam CASTILLO -[facility] Start: 01-26-2025 End: 01-26-[address] Rosibel Godfrey MD Work Phone: [facility] Work Phone: Start: 01-26-2025 End: 01-26-[address] Rosibel Godfrey MD -Cardiovascular Services Work Phone: Start: 01-26-2025 End: 01-26-2025 ambulatory Rosibel Godfrey Facility:[facility] Start: 12-22-2024 End: 12-22-[address] Rosibel Godfrey MD Work Phone: [facility] Work Phone: Start: 12-22-2024 End: 12-22-[address] Rosibel Godfrey MD -Laboratory, [place] Start: 12-22-2024 End: 12-22-[address] Rosibel Godfrey MD -[facility] Work Phone: Start: 12-22-2024 End: 12-22-2024 ambulatory Rosibel Godfrey [facility] Start: 12-22-2024 End: 12-22-2024 ambulatory Rosibel Rodriguezlay Facility:[facility] Start: 06-16-2024 End: 06-16-2024 ambulatory Rosibel Rodriguezlay Facility:[facility] Start: 01-31-2024 End: 01-31-2024 Orders Only Milli Sung MD Work Phone: General Surgery Comment on above: History of colonic p olyps (Primary Dx) Start: 01-14-2024 End: 08-26-2024 Telephone encounter Milli Sung MD Work Phone: General Surgery Comment on above: 01/31/2024 COLON LODI Start: 01-14-2024 End: 01-14-2024 ambulatory MILLI SUNG Facility:[facility] Start: 01-14-2024 End: 01-14-2024 Patient encounter procedure Milli Sung MD Work Phone: General Surgery Comment on above: History of colonic p olyps (Primary Dx) Start: 12-26-2023 Telephone encounter Nurse Eunice [facility] Work Phone: General Surgery Comment on above: Consult Start: 10-18-2023 End: 10-18-[address] Rosibel Godfrey Work Phone: [facility] Work Phone: Start: 10-18-2023 End: 10-18-[address] Rosibel Godfrey Work Phone: [facility]-Laboratory Work Phone: Start: 09-26-2023 Non-patient / Non-visit Dr. Arriola Work Phone: [facility] Start: 09-26-2023 End: 09-26-[address] Rosibel Godfrey Work Phone: [facility] Work Phone: Start: 09-21-2023 End: 09-21-[address] Rosibel Godfrey Work Phone: [facility] Work Phone: Start: 09-21-2023 End: 09-21-[address] Rosibel Godfrey Work Phone: [facility]-Outpatient Breast Imaging Work Phone: Start: 08-23-2023 End: 08-23-[address] Rosibel Godfrey Work Phone: [facility] Work Phone: Start: 02-16-2022 End: 02-16-2022 ambulatory DILIA FUENTES [facility] Start: 01-26-2022 End: 01-26-2022 ambulatory [facility] Start: 01-13-2022 ambulatory [facility] Start: 05-31-2021 End: 05-31-2021 ambulatory [facility] Procedures Date Procedure Procedure Detail Performing Clinician Start: 05-08-2025 Ecg routine ecg w/least 12 lds w/i&r Rowan Mcclelland CNP Work Phone: Start: 04-01-2025 Electrocardiogram Radha Goode MD Work Phone: Start: 04-01-2025 Basic metabolic panel calcium total Karol Ayoub PA-C Work Phone: Start: 03-31-2025 Basic metabolic panel calcium total Karol FOSS-C Work Phone: Start: 03-30-2025 Ct abdomen & pelvis w/contrast material Madi Bryant DO Work Phone: Start: 03-30-2025 Basic metabolic panel calcium total Karol FOSS-C Work Phone: Start: 03-29-2025 Basic metabolic panel calcium total Karol FOSS-C Work Phone: Start: 03-28-2025 Radiologic exam abdomen 1 view Lew Gross DO Work Phone: Start: 03-28-2025 Basic metabolic panel calcium total Karol FOSS-Shruthi Work Phone: Start: 03-27-2025 Glucose measurement [facility] Work Phone: Start: 03-27-2025 Glucose measurement [facility] Work Phone: Start: 03-27-2025 Glucose measurement [facility] Work Phone: Start: 03-27-2025 Basic metabolic panel calcium total Karol FOSS-Shruthi Work Phone: Start: 03-27-2025 Glucose measurement [facility] Work Phone: Start: 03-27-2025 Glucose [facility] Work Phone: Start: 03-26-2025 Glucose measurement [facility] Work Phone: Start: 03-26-2025 Glucose measurement [facility] Work Phone: Start: 03-26-2025 CARDIOLOGY IR CHARGE Stan Desir Ea DO Work Phone: Start: 03-26-2025 End: 03-26-2025 Cul bact xcpt urine blood/stool aerobic isol Madi Bryant DO Work Phone: Start: 03-26-2025 [facility] Work Phone: Start: 03-26-2025 Glucose measurement [facility] Work Phone: Start: 03-26-2025 Glucose measurement [facility] Work Phone: Start: 03-26-2025 Ct abdomen & pelvis w/contrast material Madi Bryant DO Work Phone: Start: 03-26-2025 Basic metabolic panel calcium total Karol Federica FOSS-Shruthi Work Phone: Start: 03-26-2025 Glucose measurement [facility] Work Phone: Start: 03-25-2025 Glucose measurement [facility] Work Phone: Start: 03-25-2025 Glucose measurement [facility] Work Phone: Start: 03-25-2025 Glucose measurement [facility] Work Phone: Start: 03-25-2025 HC CORONARY FFR ESTIMATE FROM CCTA Des Jamari DO Work Phone: Start: 03-25-2025 Glucose measurement [facility] Work Phone: Start: 03-25-2025 Cta hrt cornry art/bypass grfts contrst 3d post Des Jamari DO Work Phone: Start: 03-25-2025 Basic metabolic panel calcium total Karol Federica FOSS-Shruthi Work Phone: Start: 03-25-2025 End: 03-25-2025 Glucose measurement [facility] Work Phone: Start: 03-24-2025 Glucose measurement [facility] Work Phone: Start: 03-24-2025 Glucose measurement [facility] Work Phone: Start: 03-24-2025 Potassium serum plasma/whole blood Melissa Pradhan DO Work Phone: Start: 03-24-2025 Glucose measurement [facility] Work Phone: Start: 03-24-2025 Glucose measurement [facility] Work Phone: Start: 03-24-2025 Comprehensive metabolic panel Jw Ellison en RPh,PharmD Start: 03-24-2025 End: 03-24-2025 Glucose measurement [facility] Work Phone: Start: 03-23-2025 Cardiac mri w/wo contrast & further seq Des Kauffman DO Work Phone: Start: 03-23-2025 Basic metabolic panel calcium total Karol Federica SmartCrowdsath PA-C Work Phone: Start: 03-22-2025 Ct abdomen & pelvis w/contrast material Tamica Palm MD Work Phone: Start: 03-22-2025 Basic metabolic panel calcium total Karol Federica Herath PA-C Work Phone: Start: 03-21-2025 Basic metabolic panel calcium total Karol Federica Herath PA-C Work Phone: Start: 03-20-2025 Myocrd img pet prfuj muck boss std rst&strs cncrnt ct Bernice Tang MD Work Phone: Start: 03-20-2025 Ecg routine ecg w/least 12 lds trcg only w/o i&r Sharon Pizano MD Work Phone: Start: 03-20-2025 Echo tthrc r-t 2d w/wom-mode compl spec&colr d Rajni Lynn MD Work Phone: Start: 03-19-2025 Radiologic exam abdomen 1 view Sharon Pizano MD Work Phone: Start: 03-19-2025 Comprehensive metabolic panel Mariano Titus MD Work Phone: Start: 03-18-2025 Assay of osmolality urine Jackelin Fowler PA-C Work Phone: Start: 03-18-2025 End: 03-18-2025 Radiologic exam abdomen 1 view Mariano Titus MD Work Phone: Start: 03-18-2025 Ecg routine ecg w/least 12 lds trcg only w/o i&r Mati Aranda MD Work Phone: Start: 03-18-2025 Basic metabolic panel calcium total Sandy Carrillo MD Work Phone: Start: 03-18-2025 Lipid panel Mati Aranda MD Work Phone: Start: 03-18-2025 Ecg routine ecg w/least 12 lds trcg only w/o i&r Sharon Pizano MD Work Phone: Start: 03-17-2025 Ecg routine ecg w/least 12 lds trcg only w/o i&r Sharon Pizano MD Work Phone: Start: 03-17-2025 Assay of troponin quantitative Jackelin Petersonsa Janeth FOSS-C Work Phone: Start: 03-17-2025 Comprehensive metabolic panel Sharon gomez MD Work Phone: Start: 03-17-2025 Hepatic function panel Sharon Pizano MD Work Phone: Start: 03-17-2025 Radiologic exam abdomen 1 view Sharon Pizano MD Work Phone: Start: 03-17-2025 Ecg routine ecg w/least 12 lds trcg only w/o i&r Sharon Pizano MD Work Phone: Start: 03-16-2025 Glucose measurement Lavinia Carrillo MD Work Phone: Start: 03-16-2025 End: 03-16-2025 Exploratory laparotomy celiotomy w/wo biopsy spx Lavinia Carrillo MD Work Phone: Start: 03-16-2025 Ecg routine ecg w/least 12 lds trcg only w/o i&r Lavinia Carrillo MD Work Phone: Start: 03-16-2025 Blood group typing Tevin Addison MD Work Phone: Start: 03-16-2025 End: 03-16-2025 Basic metabolic panel calcium total Tevin Addison MD Work Phone: Start: 03-16-2025 Blood typing serologic abo Tevin Roberto piedad Deedee CASTILLO Work Phone: Start: 03-16-2025 GOLD TOP Triage Protocol Emergency MD Start: 03-16-2025 RAINBOW DRAW Triage Protocol Emergency MD Start: 03-16-2025 Computerized tomography, limited studies External Transcribed Start: 03-16-2025 Computed tomography of abdomen and pelvis with intravenous contrast Dr. Rosibel Godfrey MD Work Phone: Start: 03-16-[address] Rosibel Godfrey MD Work Phone: Start: 03-16-2025 Urnls dip stick/tablet reagent auto microscopy Dr. Rosibel Godfrey MD Work Phone: Start: 01-26-[address] Rsoibel Godfrey MD Work Phone: Start: 01-26-2025 Radionuclide imaging of perfusion of myocardium under exercise stress Dr. Rosibel Godfrey MD Work Phone: Start: 09-21-[address] Rosibel Godfrey Work Phone: Start: 08-18-2011 Lipid 1996 panel - Serum or Plasma Nurse Wstr Work Phone: Plan of Treatment Date Care Activity Detail Author Start: 09-11-2026 Screening for malign ant neoplasm of colon [facility] Start: 03-22-2026 Depression screening using PHQ-9 (Patient Health Questionnaire 9) score Depression Screening/Follow-Up (PHQ-2/9) [facility] Start: 07-26-2025 Tetanus vaccination Tetanus: Every 1 0yrs [facility] Start: 07-26-2025 Urine microalbumin profile DTaP,Tdap,Td Vaccine (2 - Td or Tdap) [facility] Start: 07-22-2025 End: 07-22-2025 Patient encounter procedure 07/22/2025 10:20 AM EDT Appointment [facility] [place] [address] [place] [address] Raz Lerner MD [address] [place] [address] [facility] Start: 07-02-2025 End: 06-04-2026 Echocardiogram limited Echocardiogram limited Echocardiography Routine Ischemic cardiomyopathy Expected: 07/02/2025, Expires: 06/04/2026 [facility] Work Phone: Comment on above: Expected: 07/02/2025 , Expires: 06/04/2026 Start: 06-22-2025 Influenza vaccination [facility] Start: 06-17-2025 End: 06-10-2026 RF Colon Views W air and barium contrast AL XR Fluoroscopy Contrast Enema Imaging Routine Diverticulitis of colon with perforation Expected: 06/17/2025, Expires: 06/10/2026 [facility] Comment on above: Expected: 06/17/2025 , Expires: 06/10/2026 Start: 06-10-2025 End: 06-10-2026 Urinalysis Urinalysis Lab Routine Diverticulitis of colon with perforation Expected: 06/10/2025, Expires: 06/10/2026 [facility] Work Phone: Comment on above: Expected: 06/10/2025 , Expires: 06/10/2026 Start: 05-19-2025 End: 05-19-2026 CT Abdomen and Pelvis W contrast IV CT Abdomen Pelvis With IV Contrast Only Imaging Routine Diverticulitis of colon with perforation Expected: 05/19/2025, Expires: 05/19/2026 [facility] Work Phone: Comment on above: Expected: 05/19/2025 , Expires: 05/19/2026 Start: 05-08-2025 End: 05-08-2025 ambulatory [facility] Start: 05-08-2025 End: 05-08-2025 Patient encounter procedure 05/08/2025 9:10 AM EDT Office Visit [facility] [address] [place] [id number] Rowan Mcclelland, HOSPITAL STAFF PHARMACIST [address] [place] [address] [facility] Start: 04-15-2025 End: 04-15-2025 Telemedicine consultation with patient 04/15/2025 9:15 AM EDT Telemedicine Telephone [facility] [address] [place] [address] [facility] Start: 04-07-2025 End: 04-07-2025 ambulatory [facility] Start: 04-07-2025 End: 04-07-2025 Patient encounter procedure 04/07/2025 9:45 AM EDT Office Visit [facility] [address] [place] [id number] [facility] Start: 03-16-2025 [facility] Start: 12-22-2024 Evaluation of diagno stic study results [facility] Start: 2024 Respiratory Syncytia l Virus Immunization: Risk, 60-74 Risk, or 75+ (1 - Risk 60-74 years 1-dose series) Respiratory Syncytial Virus Immunization: Risk, 60-74 Risk, or 75+ (1 - Risk 60-74 years 1-dose series) [facility] Start: 2024 RSV Vaccine (1 - Ris k 60-74 years 1-dose series) RSV Vaccine (1 - Risk 60-74 years 1-dose series) [facility] Start: 06-22-2024 Covid-19 Vaccine ( season) Covid-19 Vaccine ( season) [facility] Start: 06-22-2024 Influenza vaccination [facility] Start: 10-22-2023 Behavioral Health Screening Behavioral Health Screening [facility] Start: 10-22-2023 Depression Assessment Depression Ass essment [facility] Start: 09-26-2023 Patient referral Brayan cain [facility] Work Phone: Start: 09-12-2023 Screening for malign ant neoplasm of colon Colorectal Cancer Screening/Monitoring [facility] Start: 06-22-2023 Covid-19 Vaccine () Covid-19 Vaccine () [facility] Start: 06-22-2023 Influenza vaccination Influenza Vacc ine (#1) [facility] Start: 08-25-2016 Screening for malign ant neoplasm of cervix [facility] Start: 08-18-2016 Lipid panel Lipid Screening [facility] Start: 08-18-2014 Diabetes Screening Diabetes Screenin g [facility] Start: 2014 Administration of he rpes zoster vaccine Zoster Vaccines (1 of 2) [facility] Start: 2014 Screening for malign ant neoplasm of colon Flexible sigmoidoscopy [facility] Start: 2014 Shingrix Vaccine (1 of 2) Shingrix Vaccine (1 of 2) [facility] Start: 02-01-2011 Screening for malign ant neoplasm of cervix HPV Testing [facility] Start: 2009 Screening for malign ant neoplasm of colon [facility] Start: 01-12-2009 Screening for malign ant neoplasm of breast Mammogram Screening [facility] Start: 2004 Screening for malign ant neoplasm of breast Mammogram [facility] Start: 1994 Screening for malign ant neoplasm of cervix [facility] Start: 1985 Screening for malign ant neoplasm of cervix Pap Smear [facility] Start: 1983 Pneumococcal Vaccine : Age 50+ (1 of 2 - PCV) Pneumococcal Vaccine: Age 50+ (1 of 2 - PCV) [facility] Start: 1983 Urine microalbumin profile DTaP,Tdap,Td Vaccine (1 - Tdap) [facility] Start: 1982 Anxiety Screening Anxiety Screening [facility] Start: 1982 Depression Screening Depression Scre ening [facility] Start: 1982 Hepatitis C screening Hepatitis C Sc reening [facility] Start: 1982 HIV screening HIV Screening [facility] Start: 1979 HIV screening HIV Screening [facility] Start: 1967 History and physical examination, annual for health maintenance Wellness Visit [facility] Start: 02-11-1965 Covid-19 Vaccine (#1) Covid-19 Vacci ne (#1) [facility] Start: 1964 Screening for malign ant neoplasm of colon [facility] End: 05-07-2026 12 lead ECG ECG 12 Lead ECG Routine Abnormal stress test 1 Occurrences starting 05/07/2025 until 05/07/2026 [facility] Work Phone: Comment on above: 1 Occurrences starti ng 05/07/2025 until 05/07/2026 CBC W Auto Different ial panel - Blood [facility] Lipid 1996 panel - S yakelin or Plasma [facility] MG Breast - bilatera l Screening [facility] Patient referral [facility] Work Phone: Radionuclide imaging of perfusion of myocardium under exercise stress [facility] End: 01-13-2025 Screening colonoscopy COLONOSCOPY SCREENING Endoscopy Routine History of colonic polyps 1 Occurrences starting 01/14/2024 until 01/13/2025 [facility] Work Phone: Comment on above: 1 Occurrences starti ng 01/14/2024 until 01/13/2025 End: 01-30-2025 Screening colonoscopy COLONOSCOPY SCREENING Endoscopy Routine History of colonic polyps 1 Occurrences starting 01/31/2024 until 01/30/2025 [facility] Work Phone: Comment on above: 1 Occurrences starti ng 01/31/2024 until 01/30/2025 [facility] Immunizations Immunization Date Immunization Notes Care Provider Fa cili 07-11-2021 Nadiraid (Tracya) Dr. Rosibel rico Work Phone: [facility] 06-10-2021 Katherine (Gonzalo) Dr. Rosibel rico Work Phone: [facility] 08-09-2016 influenza, injectabl e, quadrivalent, preservative free Dr. Rosibel Godfrey Work Phone: [facility] 08-09-2016 influenza virus vaccine, unspecified formulation Milli Sung MD Work Phone: [facility] 07-26-2015 influenza, injectabl e, quadrivalent, preservative free Dr. Rosibel Godfrey Work Phone: [facility] 07-26-2015 tetanus toxoid, redu rodolfo diphtheria toxoid, and acellular pertussis vaccine, adsorbed Dr. Rosibel Godfrey Work Phone: [facility] 07-29-2014 influenza, injectabl e, quadrivalent, preservative free Dr. Rosibel Godfrey Work Phone: [facility] 07-24-2014 influenza, injectabl e, quadrivalent, preservative free Dr. Rosibel Godfrey Work Phone: [facility] 07-22-2009 influenza virus vaccine, unspecified formulation Nurse Wstr Work Phone: [facility] Work Phone: Payers Date Payer Category Payer Self-pay 2022 Miscellaneous or Other [id number] 2022 Unknown SBARINA MORRIS AMY [id number] 2022-Present [phone] [address] [place] [address] Indemnity [id number]. [id number] 2022 Unknown [id number] 2004 Unknown [id number] 1965 Unknown [id number] 2.16.840.1.804111.3.579.2. 651 1964 Unknown [id number] 2.16.840.1.836883.3.579.2. 651 1964 Unknown [id number] 2.16.840.1.215980.3.579.2. 651 1964 Unknown [id number] 2.16.840.1.800787.3.579.2. 651 1964 Unknown [id number] 2.16.840.1.974789.3.579.2. 651 1964 Unknown [id number] 2.16.840.1.950161.3.579.2. 900 1965 Unknown [id number] 2.16.840.1.271656.3.579.2. 903 1964 Unknown [id number] 2.16.840.1.788323.3.579.2. 903 1964 Unknown [id number] 2.16.840.1.342443.3.579.2. 903 1964 Unknown [id number] 2..840.1.533802.3.579.2. 903 1965 Unknown [id number] 2.16.840.1.489727.3.579.2. 902 Unknown [facility] [id number] Unknown [id number] 2.16.840.1.633084.3.579.2. 462 Unknown [id number] 2.16.840.1.724000.3.579.2. 462 Unknown [id number] 2.16.840.1.573422.3.579.2. 462 Unknown [id number] 2.16.840.1.266826.3.579.2. 462 Unknown [id number] 2.16.840.1.523864.3.579.2. 462 Unknown [id number] 2.16.840.1.588056.3.579.2. 462 Unknown [id number] 2.16.840.1.244027.3.579.2. 462 Unknown [id number] 2.16.840.1.572699.3.579.2. 462 Unknown [id number] 2.16.840.1.875978.3.579.2. 462 Unknown [id number] 2.16.840.1.790259.3.579.2. 462 Social History Date Type Detail Facility Start: 08-23-2023 Tobacco smoking status NVIS Unknown if ever smoked [facility] Start: 1965 Sex Assigned At Female [facility] Start: 12-26-2023 End: 04-07-2025 Tobacco smoking status NHIS Ex-smoker [facility] Start: 10-22-2000 End: 02-19-2022 History of tobacco use Current smoker [facility] Start: 10-22-2000 End: 02-19-2022 History of tobacco use Cigarette Smoker [facility] Start: 12-26-2023 End: 04-07-2025 Tobacco use and exposure Smokeless tobacco non-user [facility] Start: 12-26-2023 End: 06-10-2025 Alcohol intake Current drinker of alcohol (finding) [facility] Start: 12-26-2023 End: 03-18-2025 History of Social function [facility] Start: 12-26-2023 End: 03-18-2025 Tobacco use panel [facility] Start: 1965 Sex Assigned At Not on file [facility] National Score (1-10 0), lower number is lower risk 48 [facility] Start: 01-02-2025 End: 01-30-2025 Sex Female (finding) [facility] Start: 03-16-2025 Tobacco smoking status NHIS Never smoked tobacco [facility] Has the [employer] s, [employer], or [employer] threatened to shut off services in your home in past 12Mo No [facility] (I/We) worried wheth er (my/our) food would run out before (I/we) got money to buy more. Never true [facility] Start: 03-16-2025 Alcohol Comment socially [facility] Start: 03-16-2025 Gender identity Identifies as female gender (finding) [facility] Start: 03-16-2025 Sexual orientation Heterosexual (finding) [facility] Clinical Notes 02-23-2022 to 06-10-2025 Madi Bryant, DO - 06/10/2025 9:14 AM Sterling Mcelroy MD - 05/14/2025 4:28 PM Madi Arteaga, - 04/15/2025 8:25 AM Sterling Mcelroy MD - 05/14/2025 4:15 PM EDT Note Date & Type Note Facility 06-10-2025 History of Present illness Narrative [facility] Surgery Televisit Via Phone Call Virtual Visit Consent Statement: I discussed risks, benefits and alternatives of telemedicine visit with the patient (and any accompanying persons) including the risks that the patient s personal health details and medical records will be discussed over interactive video/audio/telecommunication technology, may be recorded, and that there are inherent diagnostic limitations compared to [id number] evaluations. They elected to proceed with the telemedicine visit. This visit has been fully reviewed with the patient and patient was notified that an attending physician participated in their evaluation and plan of care. The patient has agreed to these services and verbal consent has been obtained by the office staff and documented in the medical record. Patient ID: Jose Lind [id number] Patient location: [address] [place], [place] [id number] Provider location: [facility] [id number] Assessment/Plan: Jose Lind is a 59 y.o. female on the phone for follow up after undergoing exploratory laparotomy with diverting sigmoid loop colostomy for diverticular disease on 03/16/2025. She had outpatient CT scan which showed ongoing inflammation in her pelvis with possible fistulous communication to surrounding structures. - Discussed with patient she will need repeat exploratory laparotomy with sigmoid colectomy, likely takedown of sigmoid loop colostomy to achieve length for anticipated low rectal anastomosis, and need for diverting loop ileostomy - Colonoscopy tomorrow with Dr. Rich in [place] - Will obtain Gastrografin enema to evaluate for fistulous connection as well as colon length for operative planning - Patient will need to be seen in office for further discussions of anticipated surgical procedure - Given inflammation patient will need ureter stent placement to assist with safe dissection to assist with safe dissection - Check UA HPI History as listed above. Patient had recent CT scan which showed evidence of history of connection as a result of her diverticular process. She does not report any urinary or vaginal discharge. She does have some discomfort with urinating so I will order a urinalysis to evaluate for urinary tract infection, but I do suspect this is from pressure from her ongoing pelvic process. We discussed her prior surgical operation as well as needs for definitive surgical management of her diverticular disease. We attempted to discuss the complexity of this over the phone but this will need to be drawn out for the patient in detail in the office. She has plans for colonoscopy tomorrow. Discussed rationale for Gastrografin enema as well to evaluate length and for fistulous connection. I have spent 21-30 minutes with the patient discussing current HPI. [facility] Patient follow-up after c-scope and GGE I instructed patient to contact me promptly with additional concerns. Review of Systems Patient's Medications New Prescriptions No medications on file Previous Medications ASPIRIN 81 MG CHEWABLE TABLET Chew and Swallow 1 (one) tablet (81 mg total) daily . LOSARTAN (COZAAR) 25 MG TABLET Take 1 (one) tablet (25 mg total) by mouth daily . METOPROLOL SUCCINATE (TOPROL XL) 50 MG 24 HR TABLET Take 1 (one) tablet (50 mg total) by mouth daily . NAPROXEN SODIUM (ALEVE ORAL) Take by mouth . OXYCODONE (ROXICODONE) 5 MG IMMEDIATE RELEASE TABLET Take 1 (one) tablet (5 mg total) by mouth every 6 (six) hours as needed for pain . POLYETHYLENE GLYCOL (MIRALAX) 17 GRAM POWDER Take 17 (seventeen) g by mouth daily . SENNOSIDES (SENNA LAX ORAL) Take by mouth 2 (two) times a day . Modified Medications No medications on file Discontinued Medications No medications on file Pathology No results found for: FINALMILLICENT, KWADWO, CLININFO, MICRO Madi Bryant DO 06/10/2025 9:15 AM documented in this encounter [facility] 05-14-2025 Note I have reviewed the history, physical, diagnosis and care plan with the resident physician, Dr. Bryant, on 04/15/25. We discussed the management and plan for the patient. I confirm the assessment and treatment plan: Diagnoses and all orders for this visit: Complicated diverticulitis Sterling Livingston MD FACS AUTHENTICATED BY [facility], ON 05/14/2025 16:28:44 [facility] 05-14-2025 History of Present illness Narrative I have reviewed the history, physical, diagnosis and care plan with the resident physician, Dr. Bryant, on 04/15/25. We discussed the management and plan for the patient. I confirm the assessment and treatment plan: Diagnoses and all orders for this visit: Complicated diverticulitis Sterling Livingston MD FACS [facility] Televisit Via Phone Call Virtual Visit Consent Statement: I discussed risks, benefits and alternatives of telemedicine visit with the patient (and any accompanying persons) including the risks that the patient s personal health details and medical records will be discussed over interactive video/audio/telecommunication technology, may be recorded, and that there are inherent diagnostic limitations compared to [id number] evaluations. They elected to proceed with the telemedicine visit. This visit has been fully reviewed with the patient and patient was notified that an attending physician participated in their evaluation and plan of care. The patient has agreed to these services and verbal consent has been obtained by the office staff and documented in the medical record. Patient ID: Jose Lind [id number] Patient location: [address] [place] [id number] Provider location: [facility] [address] [address] Assessment/Plan: 59 y.o. female who is seen for follow up after undergoing exploratory laparotomy with pelvic washout and diverting sigmoid colostomy on 03/16. Her hospital course was complicated intra-abdominal abscess which she had not 2 percutaneous drains placed. She was discharged with 1 remaining drain which was pulled when she was seen in the office on 04/07. She also was noted to have some fat necrosis from her lower midline laparotomy which was opened and drained in the office. Today she was called for evaluation of her midline wound. She continues to report that her midline laparotomy is healing appropriately she does have some scant drainage but does not have any erythema around the area. Is having some tenderness from her prior right drain site but once again does not have any erythema or increased warmth. Discussed with her plans for colonoscopy to evaluate her remaining colon and plans of eventual completion sigmoid colectomy and anastomotic reversal. Previous referral was sent to Dr. Lucila Tomlinson at [place] however patient has an established GI doctor (Dr. Rich at [facility]) who is closer to her and would like to follow-up with him for colonoscopy. - Continue dry dressing to midline until the scabs over - Patient to call Dr. Rich to schedule colonoscopy at the end of April/early May for a diagnostic colonoscopy for evaluation both through her anus/rectum and through her diverting loop colostomy - Will schedule telehealth phone call after colonoscopy to discuss surgical planning for completion colectomy and ostomy reversal HPI 59 y.o. female who is seen for follow up after undergoing exploratory laparotomy with pelvic washout and diverting sigmoid colostomy on 03/16. Her hospital course was complicated intra-abdominal abscess which she had not 2 percutaneous drains placed. She was discharged with 1 remaining drain which was pulled when she was seen in the office on 04/07. She also was noted to have some fat necrosis from her lower midline laparotomy which was opened and drained in the office. Today she was called for evaluation of her midline wound. She continues to report that her midline laparotomy is healing appropriately she does have some scant drainage but does not have any erythema around the area. Is having some tenderness from her prior right drain site but once again does not have any erythema or increased warmth. Discussed with her plans for colonoscopy to evaluate her remaining colon and plans of eventual completion sigmoid colectomy and anastomotic reversal. Previous referral was sent to Dr. Lucila Tomlinson at [place] however patient has an established GI doctor (Dr. Rich at [facility]) who is closer to her and would like to follow-up with him for colonoscopy. Overall she reports she is doing quite well. She is tolerating diet just fine and having consistent output from her ostomy. She does supplement MiraLAX and senna twice a day to keep stools soft. Encouraged her to decrease senna to once daily if she appears to be having watery thin output. Discussed with her expected postoperative course as well as alarm symptoms for when she needs to return for more immediate evaluation. I have spent 11-20 minutes with the patient discussing current HPI. Patient AVS was provided via [employer] Patient follow-up in 6-8 weeks after colonoscopy as a(n): Tele video visit I instructed patient to contact me promptly with additional concerns. Review of Systems Patient's Medications New Prescriptions No medications on file Previous Medications ASPIRIN 81 MG EC TABLET Take 1 (one) tablet (81 mg total) by mouth daily Start: 04/02/25. ATORVASTATIN (LIPITOR) 40 MG TABLET Take 1 (one) tablet (40 mg total) by mouth nightly . METOPROLOL TARTRATE (LOPRESSOR) 50 MG TABLET Take 1 (one) tablet (50 mg total) by mouth 2 (two) times a day . NAPROXEN SODIUM (ALEVE ORAL) Take by mouth . OXYCODONE (ROXICODONE) 5 MG IMMEDIATE RELEASE TABLET Take 1 (one) tablet (5 mg total) by mouth every 6 (six) hours as needed for pain . POLYETHYLENE GLYCOL (MIRALAX) 17 GRAM POWDER Take 17 (seventeen) g by mouth daily . SENNA-DOCUSATE (SENNA-S) 8.6-50 MG Take 1 (one) tablet by mouth 2 (two) times a day . SODIUM CHLORIDE, PF, (NS) INJECTION Inject 10mL into drain tubing daily for 21 days . Modified Medications No medications on file Discontinued Medications No medications on file Pathology No results found for: FINALMILLICENT, KWADWO, CLININFO, MICRO Madi Bryant DO 04/15/2025 8:25 AM documented in this encounter [facility] 05-14-2025 Note I have reviewed the history, physical, diagnosis and care plan with the resident physician, Dr. Bryant, on 04/07/25. We discussed the management and plan for the patient. I confirm the assessment and treatment plan: Diagnoses and all orders for this visit: Complicated diverticulitis Sterling Livingston MD FACS AUTHENTICATED BY [facility], ON 05/14/2025 16:15:36 [facility] 05-14-2025 History of Present illness Narrative I have reviewed the history, physical, diagnosis and care plan with the resident physician, Dr. Bryant, on 04/07/25. We discussed the management and plan for the patient. I confirm the assessment and treatment plan: Diagnoses and all orders for this visit: Complicated diverticulitis Sterling Livingston MD FACS [facility] Post-Operative Note [facility] [address] [phone] Jose Lind [id number] 1965 Office visit date: 04/07/2025 Assessment and Plan 59 y.o. female who is seen for follow up after undergoing exploratory laparotomy with pelvic washout and diverting sigmoid colostomy on 03/16. Her hospital course was complicated intra-abdominal abscess which she had not 2 percutaneous drains placed. She was discharged with 1 remaining drain and seen on follow-up today. - Patient has been doing well postoperatively, residual drain became serous in nature - Post Operative Incisions Healing Well, she does have an area along the inferior portion of her abdominal incision that developed an area of fat necrosis, this was probed while in house and further opened up today after staple removal. Patient will continue daily dry dressing as the wound heals - Pathology Reviewed with patient while in hospital - Follow up with telehealth appointment next week to eval for continued wound healing of her lower abdominal laparotomy - Instructed patient on progressive activity -Will need outpatient colonoscopy in 6 to 8 weeks to eval for resolution of diverticulitis and eval for subsequent masses prior to planned sigmoid colectomy, referral planded to Dr. Lucila Alvarado to return to work with light duty (no heavy lifting >15 lbs) until 6 weeks postop. HPI 59 y.o. female who is seen for follow up after undergoing exploratory laparotomy with pelvic washout and diverting sigmoid colostomy on 03/16. Her hospital course was complicated intra-abdominal abscess which she had not 2 percutaneous drains placed. She was discharged with 1 remaining drain and seen on follow-up today. She reports overall she has been doing well. Activity levels are increasing as well as her ability to tolerate p.o. intake. She has not had any fevers or chills. Her abdominal incisions are intact with the exception of her infraumbilical laparotomy has been having some fat necrosis drainage from it. This was present in the hospital. All of her nichol were removed and the inferior portion of her laparotomy incision was gently probed and evacuated. A single piece of quarter inch packing was placed into this dry dressing was placed. Spouse was advised to remove packing tomorrow continue dry dressings. She will follow-up in 1 week with telehealth if eval for continued wound healing. Remaining percutaneous drain was removed in office. Review of Systems: General: no fevers or chills Psychological ROS: negative Hematological and Lymphatic ROS: negative Respiratory ROS: no SOB, no cough Cardiovascular ROS: no chest pain, no swelling Gastrointestinal ROS: no abd pain Genito-Urinary ROS: no dysuria, no increased frequency Musculoskeletal ROS: negative Neurological ROS: negative Dermatological ROS: no rash, wound as above Exam Vital Signs: BP (!) 128/95 (BP Location: Left arm, Patient Position: Sitting, BP Cuff Size: Adult) Pulse 79 Temp 97.4 F (36.3 C) (Oral) Wt 78.8 kg (173 lb 11.2 oz) BMI 24.92 kg/m Constitutional: NAD, appears stated age Eyes: EOMI, gross vision normal HENT: Atraumatic, normocephalic Neck: Atraumatic, no stridor Cardiovascular: HDS, No peripheral edema Respiratory: Symmetric chest rise, respirations unlabored Gastrointestinal: soft, a TTP, nondistended Extremities/Skin: Normal temperature, Turgor & Texture Psych: Appropriate Affect, alert Neurologic: No focal deficits, AAO Wound: Fat necrosis draining from inferior portion of midline laparotomy Pathology No results found for: KWADWO POLLARD CLININFO, TRACIE Bryant DO 04/07/2025 11:05 AM documented in this encounter [facility] 05-08-2025 Instructions Karolina Persaud RN - 05/08/2025 9:17 AM EDT Images from the original note were not included. Recommendations: - Call central scheduling, to schedule your Echo in [facility], tel# [phone] Medication changes: - Stop Metoprolol Tartrate (Lopressor) - Start Metoprolol Succinate (Toprol XL). New prescription was sent to the pharmacy. - Start Losartan. New prescription was sent to the pharmacy. Appointments: - Follow up in [facility] in 3-6 months. Please call to schedule: [phone], option [phone] To reach Rowan PERALES's nurse Karolina directly, please call [phone]. Please note that this voicemail is NOT checked after 5pm, on weekends, or on holidays. The main office number is [phone] should you have problems during those times and need to speak with the professional caster physician. Office Address: [address] [place] [address] documented in this encounter [facility] 05-08-2025 History of Present illness Narrative General Cardiology Clinic Follow up Heart & Vascular [facility] 05/08/2025 Rowan Mcclelland CNP [address] [place] [address] [address] [facility] [phone] Patient: Jose Lind Date of : 1965 (59 y.o.) Referring Provider: No ref. provider found PCP: No, Physician Assessment & Plan Cardiomyopathy, non-ischemic Diagnosed during admission for perforated diverticulitis. Cardiac testing was done d/t tachycardia. TTE 03/19/25 EF 43%, global hypokinesis. PET MPI abnormal but only mild to moderate coronary artery disease per CCTA. CMR 03/23/2025 nonischemic cardiomyopathy LV ejection fraction 45%. Possibly stress induced d/t acute illness at the time or tachy mediated d/t tachycardia in setting of acute illness. Appears euvolemic on exam. Rec: -Change lopressor to Toprol XL 50mg daily as she has only been taking once a day. Add Losartan 25mg daily which will also help with BP. -She will get a repeat echo in about 2 months to reassess LVSF. Coronary artery calcification CCTA with mild to moderate stenosis but per FFR no hemodynamically lesions. No anginal CP. Rec: -Continue ASA 81mg daily. Lipitor 40mg daily is recommended but she refuses to take a statin. Her last LDL was 67. Discussed Mediterranean diet. Tachycardia Persistent tachycardia during recent hospital admit. Likely compensatory d/t acute illness. HR controlled today. Rec: -Continue beta cam. Changed Lopressor to Toprol XL as above. Preoperative cardiovascular examination Will be having colonoscopy and ostomy reversal in the near future. No anginal CP, no HF on exam, no active arrhythmias. Rec: -She will be acceptable risk for upcoming procedure/surgery. -Would continue beta cam perioperatively. Ok to hold ASA as needed prior to surgery and resume when risk of post-op bleeding minimized. Follow-up: She will f/u in the [place] office in the future as it is closer to home. Recommend f/u in 3-6 months. Chief Complaint: [facility] ([facility] trops and tachy ) Subjective History of Present Illness: Jose Lind is a 59 y.o. female who presented to [place] ED for abdominal pain, distention found to have perforated diverticulitis. [facility] for general surgery evaluation. S/p Ex-lap with bowel resection and ostomy 03/16/25 (Dr. Carrillo, ). Hospital course complicated by post-op ileus, intermittent tachycardia, reduced EF and abnormal stress test. Echo with EF 43% and cardiac MRI with EF 46% with global hypokinesis and findings consistent with non-ischemic cardiomypathy. PET stress 03/20/25 significantly abnormal and suggestive of LAD disease. CCTA with mild nonobstructive disease no significant LAD disease that would correspond to perfusion defect on PET MPI. Recommended to continue cardiovascular medical regimen including metoprolol tartrate 50 mg twice daily, aspirin 81 mg daily and atorvastatin 40 mg daily. She presents today with her . She has been feeling well since hospital discharge. She has had no chest pain, dyspnea, LE edema, orthopnea, or palpitations. She does still have an ostomy and will be having a colonscopy in May and is hopeful for ostomy reversal shortly thereafter. She is still on a low fiber diet d/t the ostomy. She does not like taking pills. She has only been taking Lopressor once a day. She has been taking ASA but refuses to take a statin. She does not monitor her BP at home but does admit to white coat htn. Objective Tobacco Use History[1] Imaging: I independently reviewed the EKG and agree with the interpretation(s) with the following comments. SR, left axis deviation, poor R wave progression. ECG 12 Lead Final Result by Rowan Mcclelland CNP (05/08/2025 0915) Echocardiogram complete w contrast Final Result by Des Connor MD (03/19/2025 1109) CT CCTA Heart With And Without Contrast Final Result by Michelle Beard MD (03/25/2025 1639) CCTA Heart (Proctologist read) Final Result by Grant Juares DO (03/25/2025 1159) HOME Medications: Patient's Medications New Prescriptions LOSARTAN (COZAAR) 25 MG TABLET Take 1 (one) tablet (25 mg total) by mouth daily . METOPROLOL SUCCINATE (TOPROL XL) 50 MG 24 HR TABLET Take 1 (one) tablet (50 mg total) by mouth daily . Previous Medications ASPIRIN 81 MG CHEWABLE TABLET Chew and Swallow 1 (one) tablet (81 mg total) daily . ATORVASTATIN (LIPITOR) 40 MG TABLET Take 1 (one) tablet (40 mg total) by mouth nightly . NAPROXEN SODIUM (ALEVE ORAL) Take by mouth . OXYCODONE (ROXICODONE) 5 MG IMMEDIATE RELEASE TABLET Take 1 (one) tablet (5 mg total) by mouth every 6 (six) hours as needed for pain . POLYETHYLENE GLYCOL (MIRALAX) 17 GRAM POWDER Take 17 (seventeen) g by mouth daily . SENNOSIDES (SENNA LAX ORAL) Take by mouth 2 (two) times a day . Modified Medications No medications on file Discontinued Medications METOPROLOL TARTRATE (LOPRESSOR) 50 MG TABLET Take 1 (one) tablet (50 mg total) by mouth 2 (two) times a day . Physical Examination: BP (!) 145/110 (BP Location: Left arm, Patient Position: Sitting, BP Cuff Size: Adult) Pulse 78 Ht 5' 10 Wt 78 kg (172 lb) BMI 24.68 kg/m Lab Results Component Value Date CHOL 110 03/18/2025 LDLCALC 67 03/18/2025 TRIG 137 03/24/2025 HDL 23 (L) 03/18/2025 Creatinine clearance cannot be calculated (Patient's most recent lab result is older than the maximum 14 days allowed.) [1] Tobacco Use Smoking Status Former Current packs/day: 0.00 Types: Cigarettes Quit date: 02/19/2022 Years since quittin.2 Smokeless Tobacco Never documented in this encounter [facility] 05-08-2025 Note General Cardiology C linic Follow up Heart & Vascular [facility] 05/08/2025 Rowan Mcclelland CNP [address] [facility] [address] Patient: Jose Lind Date of : 1965 (59 y.o.) Referring Provider: No ref. provider found PCP: No, Physician Assessment & Plan Cardiomyopathy, non-ischemic Diagnosed during admission for perforated diverticulitis. Cardiac testing was done d/t tachycardia. TTE 03/19/25 EF 43%, global hypokinesis. PET MPI abnormal but only mild to moderate coronary artery disease per CCTA. CMR 03/23/2025 nonischemic cardiomyopathy LV ejection fraction 45%. Possibly stress induced d/t acute illness at the time or tachy mediated d/t tachycardia in setting of acute illness. Appears euvolemic on exam. Rec: -Change lopressor to Toprol XL 50mg daily as she has only been taking once a day. Add Losartan 25mg daily which will also help with BP. -She will get a repeat echo in about 2 months to reassess LVSF. Coronary artery calcification CCTA with mild to moderate stenosis but per FFR no hemodynamically lesions. No anginal CP. Rec: -Continue ASA 81mg daily. Lipitor 40mg daily is recommended but she refuses to take a statin. Her last LDL was 67. Discussed Mediterranean diet. Tachycardia Persistent tachycardia during recent hospital admit. Likely compensatory d/t acute illness. HR controlled today. Rec: -Continue beta cam. Changed Lopressor to Toprol XL as above. Preoperative cardiovascular examination Will be having colonoscopy and ostomy reversal in the near future. No anginal CP, no HF on exam, no active arrhythmias. Rec: -She will be acceptable risk for upcoming procedure/surgery. -Would continue beta cam perioperatively. Ok to hold ASA as needed prior to surgery and resume when risk of post-op bleeding minimized. Follow-up: She will f/u in the [place] office in the future as it is closer to home. Recommend f/u in 3-6 months. Chief Complaint: [facility] ([facility] trops and tachy ) Subjective History of Present Illness: Jose Lind is a 59 y.o. female who presented to [place] ED for abdominal pain, distention found to have perforated diverticulitis. [facility] for general surgery evaluation. S/p Ex-lap with bowel resection and ostomy 03/16/25 (Dr. Carrillo, ). Hospital course complicated by post-op ileus, intermittent tachycardia, reduced EF and abnormal stress test. Echo with EF 43% and cardiac MRI with EF 46% with global hypokinesis and findings consistent with non-ischemic cardiomypathy. PET stress 03/20/25 significantly abnormal and suggestive of LAD disease. CCTA with mild nonobstructive disease no significant LAD disease that would correspond to perfusion defect on PET MPI. Recommended to continue cardiovascular medical regimen including metoprolol tartrate 50 mg twice daily, aspirin 81 mg daily and atorvastatin 40 mg daily. She presents today with her . She has been feeling well since hospital discharge. She has had no chest pain, dyspnea, LE edema, orthopnea, or palpitations. She does still have an ostomy and will be having a colonscopy in May and is hopeful for ostomy reversal shortly thereafter. She is still on a low fiber diet d/t the ostomy. She does not like taking pills. She has only been taking Lopressor once a day. She has been taking ASA but refuses to take a statin. She does not monitor her BP at home but does admit to white coat htn. Objective Tobacco Use History[1] Imaging: I independently reviewed the EKG and agree with the interpretation(s) with the following comments. SR, left axis deviation, poor R wave progression. ECG 12 Lead Final Result by Rowan Mcclelland CNP (05/08/2025 0915) Echocardiogram complete w contrast Final Result by Des Connor MD (03/19/2025 1109) CT CCTA Heart With And Without Contrast Final Result by Michelle Beard MD (03/25/2025 1639) CCTA Heart (Proctologist read) Final Result by Grant Juares DO (03/25/2025 1159) HOME Medications: Patient's Medications New Prescriptions LOSARTAN (COZAAR) 25 MG TABLET Take 1 (one) tablet (25 mg total) by mouth daily . METOPROLOL SUCCINATE (TOPROL XL) 50 MG 24 HR TABLET Take 1 (one) tablet (50 mg total) by mouth daily . Previous Medications ASPIRIN 81 MG CHEWABLE TABLET Chew and Swallow 1 (one) tablet (81 mg total) daily . ATORVASTATIN (LIPITOR) 40 MG TABLET Take 1 (one) tablet (40 mg total) by mouth nightly . NAPROXEN SODIUM (ALEVE ORAL) Take by mouth . OXYCODONE (ROXICODONE) 5 MG IMMEDIATE RELEASE TABLET Take 1 (one) tablet (5 mg total) by mouth every 6 (six) hours as needed for pain . POLYETHYLENE GLYCOL (MIRALAX) 17 GRAM POWDER Take 17 (seventeen) g by mouth daily . SENNOSIDES (SENNA LAX ORAL) Take by mouth 2 (two) times a day . Modified Medications No medications on file Discontinued Medications M (more content not included)... [facility] 04-15-2025 Note [facility] Surgery Televisit Via Phone Call Virtual Visit Consent Statement: I discussed risks, benefits and alternatives of telemedicine visit with the patient (and any accompanying persons) including the risks that the patient's personal health details and medical records will be discussed over interactive video/audio/telecommunication technology, may be recorded, and that there are inherent diagnostic limitations compared to [id number] evaluations. They elected to proceed with the telemedicine visit. This visit has been fully reviewed with the patient and patient was notified that an attending physician participated in their evaluation and plan of care. The patient has agreed to these services and verbal consent has been obtained by the office staff and documented in the medical record. Patient ID: Jose Lind [id number] Patient location: [address] [place], [place] [address] [facility] [address] Provider location: [facility] [address] [address] Assessment/Plan: 59 y.o. female who is seen for follow up after undergoing exploratory laparotomy with pelvic washout and diverting sigmoid colostomy on 03/16. Her hospital course was complicated intra-abdominal abscess which she had not 2 percutaneous drains placed. She was discharged with 1 remaining drain which was pulled when she was seen in the office on 04/07. She also was noted to have some fat necrosis from her lower midline laparotomy which was opened and drained in the office. Today she was called for evaluation of her midline wound. She continues to report that her midline laparotomy is healing appropriately she does have some scant drainage but does not have any erythema around the area. Is having some tenderness from her prior right drain site but once again does not have any erythema or increased warmth. Discussed with her plans for colonoscopy to evaluate her remaining colon and plans of eventual completion sigmoid colectomy and anastomotic reversal. Previous referral was sent to Dr. Lucila Tomlinson at [place] however patient has an established GI doctor (Dr. Rich at [facility]) who is closer to her and would like to follow-up with him for colonoscopy. - Continue dry dressing to midline until the scabs over - Patient to call Dr. Rich to schedule colonoscopy at the end of April/early May for a diagnostic colonoscopy for evaluation both through her anus/rectum and through her diverting loop colostomy - Will schedule telehealth phone call after colonoscopy to discuss surgical planning for completion colectomy and ostomy reversal HPI 59 y.o. female who is seen for follow up after undergoing exploratory laparotomy with pelvic washout and diverting sigmoid colostomy on 03/16. Her hospital course was complicated intra-abdominal abscess which she had not 2 percutaneous drains placed. She was discharged with 1 remaining drain which was pulled when she was seen in the office on 04/07. She also was noted to have some fat necrosis from her lower midline laparotomy which was opened and drained in the office. Today she was called for evaluation of her midline wound. She continues to report that her midline laparotomy is healing appropriately she does have some scant drainage but does not have any erythema around the area. Is having some tenderness from her prior right drain site but once again does not have any erythema or increased warmth. Discussed with her plans for colonoscopy to evaluate her remaining colon and plans of eventual completion sigmoid colectomy and anastomotic reversal. Previous referral was sent to Dr. Lucila Tomlinson at [place] however patient has an established GI doctor (Dr. Rich at [facility]) who is closer to her and would like to follow-up with him for colonoscopy. Overall she reports she is doing quite well. She is tolerating diet just fine and having consistent output from her ostomy. She does supplement MiraLAX and senna twice a day to keep stools soft. Encouraged her to decrease senna to once daily if she appears to be having watery thin output. Discussed with her expected postoperative course as well as alarm symptoms for when she needs to return for more immediate evaluation. I have spent 11-20 minutes with the patient discussing current HPI. Patient AVS was provided via [employer] Patient follow-up in 6-8 weeks after colonoscopy as a(n): Tele video visit I instructed patient to contact me promptly with additional concerns. Review of Systems Patient's Medications New Prescriptions No medications on file Previous Medications ASPIRIN 81 MG EC TABLET Take 1 (one) tablet (81 mg total) by mouth daily Start: 04/02/25. ATORVASTATIN (LIPITOR) 40 MG TABLET Take 1 (one) tablet (40 mg total) by mouth nightly . METOPROLOL TARTRATE (LOPRESSOR) 50 MG TABLET Take 1 (one) tablet (50 mg (more content not included)... [facility] 04-15-2025 History of Present illness Narrative [facility] Surgery Televisit Via Phone Call Virtual Visit Consent Statement: I discussed risks, benefits and alternatives of telemedicine visit with the patient (and any accompanying persons) including the risks that the patient s personal health details and medical records will be discussed over interactive video/audio/telecommunication technology, may be recorded, and that there are inherent diagnostic limitations compared to [id number] evaluations. They elected to proceed with the telemedicine visit. This visit has been fully reviewed with the patient and patient was notified that an attending physician participated in their evaluation and plan of care. The patient has agreed to these services and verbal consent has been obtained by the office staff and documented in the medical record. Patient ID: Jose Lind [id number] Patient location: [address] [facility] [address] Provider location: [facility] [address] [address] Assessment/Plan: 59 y.o. female who is seen for follow up after undergoing exploratory laparotomy with pelvic washout and diverting sigmoid colostomy on 03/16. Her hospital course was complicated intra-abdominal abscess which she had not 2 percutaneous drains placed. She was discharged with 1 remaining drain which was pulled when she was seen in the office on 04/07. She also was noted to have some fat necrosis from her lower midline laparotomy which was opened and drained in the office. Today she was called for evaluation of her midline wound. She continues to report that her midline laparotomy is healing appropriately she does have some scant drainage but does not have any erythema around the area. Is having some tenderness from her prior right drain site but once again does not have any erythema or increased warmth. Discussed with her plans for colonoscopy to evaluate her remaining colon and plans of eventual completion sigmoid colectomy and anastomotic reversal. Previous referral was sent to Dr. Lucila Tomlinson at [place] however patient has an established GI doctor (Dr. Rich at [facility]) who is closer to her and would like to follow-up with him for colonoscopy. - Continue dry dressing to midline until the scabs over - Patient to call Dr. Rich to schedule colonoscopy at the end of April/early May for a diagnostic colonoscopy for evaluation both through her anus/rectum and through her diverting loop colostomy - Will schedule telehealth phone call after colonoscopy to discuss surgical planning for completion colectomy and ostomy reversal HPI 59 y.o. female who is seen for follow up after undergoing exploratory laparotomy with pelvic washout and diverting sigmoid colostomy on 03/16. Her hospital course was complicated intra-abdominal abscess which she had not 2 percutaneous drains placed. She was discharged with 1 remaining drain which was pulled when she was seen in the office on 04/07. She also was noted to have some fat necrosis from her lower midline laparotomy which was opened and drained in the office. Today she was called for evaluation of her midline wound. She continues to report that her midline laparotomy is healing appropriately she does have some scant drainage but does not have any erythema around the area. Is having some tenderness from her prior right drain site but once again does not have any erythema or increased warmth. Discussed with her plans for colonoscopy to evaluate her remaining colon and plans of eventual completion sigmoid colectomy and anastomotic reversal. Previous referral was sent to Dr. Lucila Tomlinson at [place] however patient has an established GI doctor (Dr. Rich at [facility]) who is closer to her and would like to follow-up with him for colonoscopy. Overall she reports she is doing quite well. She is tolerating diet just fine and having consistent output from her ostomy. She does supplement MiraLAX and senna twice a day to keep stools soft. Encouraged her to decrease senna to once daily if she appears to be having watery thin output. Discussed with her expected postoperative course as well as alarm symptoms for when she needs to return for more immediate evaluation. I have spent 11-20 minutes with the patient discussing current HPI. Patient AVS was provided via [employer] Patient follow-up in 6-8 weeks after colonoscopy as a(n): Tele video visit I instructed patient to contact me promptly with additional concerns. Review of Systems Patient's Medications New Prescriptions No medications on file Previous Medications ASPIRIN 81 MG EC TABLET Take 1 (one) tablet (81 mg total) by mouth daily Start: 04/02/25. ATORVASTATIN (LIPITOR) 40 MG TABLET Take 1 (one) tablet (40 mg total) by mouth nightly . METOPROLOL TARTRATE (LOPRESSOR) 50 MG TABLET Take 1 (one) tablet (50 mg total) by mouth 2 (two) times a day . NAPROXEN SODIUM (ALEVE ORAL) Take by mouth . OXYCODONE (ROXICODONE) 5 MG IMMEDIATE RELEASE TABLET Take 1 (one) tablet (5 mg total) by mouth every 6 (six) hours as needed for pain . POLYETHYLENE GLYCOL (MIRALAX) 17 GRAM POWDER Take 17 (seventeen) g by mouth daily . SENNA-DOCUSATE (SENNA-S) 8.6-50 MG Take 1 (one) tablet by mouth 2 (two) times a day . SODIUM CHLORIDE, PF, (NS) INJECTION Inject 10mL into drain tubing daily for 21 days . Modified Medications No medications on file Discontinued Medications No medications on file Pathology No results found for: ATUL, KWADWO CLININFO, TRACIE Bryant DO 04/15/2025 8:25 AM documented in this encounter [facility] 04-07-2025 Note [facility] Surgery Clinic Post-Operative Note [facility] [address] [address] Jose Lind [id number] 1965 Office visit date: 04/07/2025 Assessment and Plan 59 y.o. female who is seen for follow up after undergoing exploratory laparotomy with pelvic washout and diverting sigmoid colostomy on 03/16. Her hospital course was complicated intra-abdominal abscess which she had not 2 percutaneous drains placed. She was discharged with 1 remaining drain and seen on follow-up today. - Patient has been doing well postoperatively, residual drain became serous in nature - Post Operative Incisions Healing Well, she does have an area along the inferior portion of her abdominal incision that developed an area of fat necrosis, this was probed while in house and further opened up today after staple removal. Patient will continue daily dry dressing as the wound heals - Pathology Reviewed with patient while in hospital - Follow up with telehealth appointment next week to eval for continued wound healing of her lower abdominal laparotomy - Instructed patient on progressive activity -Will need outpatient colonoscopy in 6 to 8 weeks to eval for resolution of diverticulitis and eval for subsequent masses prior to planned sigmoid colectomy, referral planded to Dr. Lucila Tomlinson - Dc to return to work with light duty (no heavy lifting >15 lbs) until 6 weeks postop. HPI 59 y.o. female who is seen for follow up after undergoing exploratory laparotomy with pelvic washout and diverting sigmoid colostomy on 03/16. Her hospital course was complicated intra-abdominal abscess which she had not 2 percutaneous drains placed. She was discharged with 1 remaining drain and seen on follow-up today. She reports overall she has been doing well. Activity levels are increasing as well as her ability to tolerate p.o. intake. She has not had any fevers or chills. Her abdominal incisions are intact with the exception of her infraumbilical laparotomy has been having some fat necrosis drainage from it. This was present in the hospital. All of her nichol were removed and the inferior portion of her laparotomy incision was gently probed and evacuated. A single piece of quarter inch packing was placed into this dry dressing was placed. Spouse was advised to remove packing tomorrow continue dry dressings. She will follow-up in 1 week with telehealth if eval for continued wound healing. Remaining percutaneous drain was removed in office. Review of Systems: General: no fevers or chills Psychological ROS: negative Hematological and Lymphatic ROS: negative Respiratory ROS: no SOB, no cough Cardiovascular ROS: no chest pain, no swelling Gastrointestinal ROS: no abd pain Genito-Urinary ROS: no dysuria, no increased frequency Musculoskeletal ROS: negative Neurological ROS: negative Dermatological ROS: no rash, wound as above Exam Vital Signs: BP (!) 128/95 (BP Location: Left arm, Patient Position: Sitting, BP Cuff Size: Adult) Pulse 79 Temp 97.4 degrees F (36.3 degrees C) (Oral) Wt 78.8 kg (173 lb 11.2 oz) BMI 24.92 kg/m Constitutional: NAD, appears stated age Eyes: EOMI, gross vision normal HENT: Atraumatic, normocephalic Neck: Atraumatic, no stridor Cardiovascular: HDS, No peripheral edema Respiratory: Symmetric chest rise, respirations unlabored Gastrointestinal: soft, a TTP, nondistended Extremities/Skin: Normal temperature, Turgor & Texture Psych: Appropriate Affect, alert Neurologic: No focal deficits, AAO Wound: Fat necrosis draining from inferior portion of midline laparotomy Pathology No results found for: FINALDX, KWADWO, CLININFO, MICRO Madi Bryant DO 04/07/2025 11:05 AM AUTHENTICATED BY KECIA VILLEDA 04/07/2025 11:12:44 [facility] 04-07-2025 History of Present illness Narrative [facility] Surgery [facility] Post-Operative Note [facility] [address] [address] Jose Lind [id number] 1965 Office visit date: 04/07/2025 Assessment and Plan 59 y.o. female who is seen for follow up after undergoing exploratory laparotomy with pelvic washout and diverting sigmoid colostomy on 03/16. Her hospital course was complicated intra-abdominal abscess which she had not 2 percutaneous drains placed. She was discharged with 1 remaining drain and seen on follow-up today. - Patient has been doing well postoperatively, residual drain became serous in nature - Post Operative Incisions Healing Well, she does have an area along the inferior portion of her abdominal incision that developed an area of fat necrosis, this was probed while in house and further opened up today after staple removal. Patient will continue daily dry dressing as the wound heals - Pathology Reviewed with patient while in hospital - Follow up with telehealth appointment next week to eval for continued wound healing of her lower abdominal laparotomy - Instructed patient on progressive activity -Will need outpatient colonoscopy in 6 to 8 weeks to eval for resolution of diverticulitis and eval for subsequent masses prior to planned sigmoid colectomy, referral planded to Dr. Lucila Alvarado to return to work with light duty (no heavy lifting >15 lbs) until 6 weeks postop. HPI 59 y.o. female who is seen for follow up after undergoing exploratory laparotomy with pelvic washout and diverting sigmoid colostomy on 03/16. Her hospital course was complicated intra-abdominal abscess which she had not 2 percutaneous drains placed. She was discharged with 1 remaining drain and seen on follow-up today. She reports overall she has been doing well. Activity levels are increasing as well as her ability to tolerate p.o. intake. She has not had any fevers or chills. Her abdominal incisions are intact with the exception of her infraumbilical laparotomy has been having some fat necrosis drainage from it. This was present in the hospital. All of her nichol were removed and the inferior portion of her laparotomy incision was gently probed and evacuated. A single piece of quarter inch packing was placed into this dry dressing was placed. Spouse was advised to remove packing tomorrow continue dry dressings. She will follow-up in 1 week with telehealth if eval for continued wound healing. Remaining percutaneous drain was removed in office. Review of Systems: General: no fevers or chills Psychological ROS: negative Hematological and Lymphatic ROS: negative Respiratory ROS: no SOB, no cough Cardiovascular ROS: no chest pain, no swelling Gastrointestinal ROS: no abd pain Genito-Urinary ROS: no dysuria, no increased frequency Musculoskeletal ROS: negative Neurological ROS: negative Dermatological ROS: no rash, wound as above Exam Vital Signs: BP (!) 128/95 (BP Location: Left arm, Patient Position: Sitting, BP Cuff Size: Adult) Pulse 79 Temp 97.4 F (36.3 C) (Oral) Wt 78.8 kg (173 lb 11.2 oz) BMI 24.92 kg/m Constitutional: NAD, appears stated age Eyes: EOMI, gross vision normal HENT: Atraumatic, normocephalic Neck: Atraumatic, no stridor Cardiovascular: HDS, No peripheral edema Respiratory: Symmetric chest rise, respirations unlabored Gastrointestinal: soft, a TTP, nondistended Extremities/Skin: Normal temperature, Turgor & Texture Psych: Appropriate Affect, alert Neurologic: No focal deficits, AAO Wound: Fat necrosis draining from inferior portion of midline laparotomy Pathology No results found for: FINALMILLICENT, KWADWO, CLININFO, MICRO Madi Bryant DO 04/07/2025 11:05 AM documented in this encounter [facility] 04-04-2025 History of Present illness Narrative Patient s/p [facility]--dc'd 04/04/25. Cardiology evaluated for post op tachycardia and reduced ef. Limited echocardiogram ordered for in 3 months, appt with Davi Mcclelland CNP 05/08/25, information provided on AVS. documented in this encounter [facility] 04-01-2025 History of Present illness Narrative Patient was given the AVS. Education on drain care provided. Meds to beds were received. PICC line removed and tolerated well. Ostomy bag changed. She walked off the unit with RN. Care Management Progress Note Date: 04/01/2025 Time: 12:04 PM Patient Name: Jose Lind Date of : 1965 Discharge Plan: D/C Disposition: Home Related to Current Admission?: Yes Final D/C Agency/Destination: Home Options Reviewed: Explained services/benefits Reason for Choice: Patient/Family preference Plan A: Home Discharging Transportation Plan: Transportation Type: Auto Discharge Plan Status: Updated pt in room that no [facility] agency has been secure for colostomy and VIR drain/flushes. . Pt understands. Her daughter and completed teaching lesson with wound nurse for ostomy care. . . Also pt has a good friend that is a nurse and another who is a PROJECT EXECUTIVE. Bedside nurse teaching drain care and flushes. NS flushes delivered from [facility] pharmacy. Ostomy resources placed in AVS. Prior notes: Pt lives with spouse Raz who is a teachable caregiver. . Pt confirmed that she does not have any concerns about returning home and managing colostomy without a SN through a [facility] agency, as she has a friend who is a RN for a [facility] agency and she lives close to her and can assist her with colostomy management upon discharge. . Family to transport on day of discharge. Assessment and Background Information: [facility] Inpatient Progress Note 04/01/2025 Jose Lind 1965 [id number] Assessment/Plan: Jose Lind is a 59 y.o. female with a history of diverticulosis who presented to [place] ED for abdominal pain, distention found to have perforated diverticulitis. [facility] for general surgery evaluation. S/p Ex-lap with bowel resection and ostomy 03/16/25 (Dr. Carrillo, ). Hospital course complicated by post-op ileus, intermittent tachycardia, and abnormal stress test. Diverticulitis with Perforation: With acute onset of abdominal pain 03/15/25. CTAP 03/16/25 showed acute sigmoid diverticulitis with perforation, pelvic phlegmon. S/p ex-lap with bowel resection and ostomy 03/16/25 (Dr. Carrillo, ). Repeat CTAP 03/22/25 showed developing abscesses in the pelvis, noted again on CT A/P 03/26/25. S/p drain placement with IR 03/26/25, fluid culture 03/26/25 with B ovatus (B fragilis). Continued Zosyn. Repeat CT A/P 03/30/25 with improvement. GS followed. Intermittent Tachycardia: likely multifactorial from pain, stress, electrolyte disturbance, infection, possible ischemic component. HR up to 130-140's intermittently. Multiple EKGs have shown SVT, atrial tachycardia, sinus tachycardia, PVCs. TTE 03/19/25 EF 43%, global hypokinesis. Cardiology followed, initiated BB. Abnormal stress test: PET stress 03/20/25 significantly abnormal and suggestive of LAD disease. 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 Cardiology followed, recommend OP follow up for evaluation of LHC. Postop Ileus: KUB 03/17/25 with possible postoperative ileus vs low grade partial SBO. Required NG tube. Required TPN 03/23-03/27/25. Improved. GS followed. Incidental pulmonary nodule: CCTA with sub centimeter LLL nodule, recommend re-imaging in 12mo as OP. Code status: Full code DVT Prophylaxis: Lovenox Current living situation: Home Expected Disposition: Same Estimated discharge date: Today Medically Ready for Discharge: yes Subjective: Pt seen and examined. No overnights events reported and eager to be discharged home. Plan of care updated and pt agreeable: - S/p b/l pelvic IR drain placement 03/26/25, L drain removed 03/31, planning for R drain as out pt and Gen surg team approved for discharge with drain. - Pt tolerating low fiber diet, TPN stopped 03/27/25 Physical Exam: BP 125/85 Pulse 92 Temp 98.4 F (36.9 C) (Oral) Resp 16 Ht 5' 10 Wt 78.3 kg (172 lb 9.9 oz) SpO2 95% BMI 24.77 kg/m General: NAD Eyes: EOMI, sclera clear ENT: neck supple Cardiovascular: Regular rate, no murmur Respiratory: Clear to auscultation, symmetric air entry Gastrointestinal: Soft, non distended, positive bowel sounds. Midline incisions well appearing. Ostomy in place. Genitourinary: no CVA tenderness Musculoskeletal: no major joint deformity Skin: warm, dry, no LE edema Neuro: Alert, oriented x3, no focal motor deficits Psych: Mood appropriate Current Medications: amoxicillin-clavulanate 1 tablet Oral Q12H [facility] aspirin 81 mg Oral Daily atorvastatin 40 mg Oral Nightly cyclobenzaprine 10 mg Oral Q8H VIGNESH enoxaparin (LOVENOX) injection 40 mg Subcutaneous Daily metoprolol tartrate 50 mg Oral BID polyethylene glycol 17 g Oral Daily senna-docusate 1 tablet Oral BID sodium chloride (PF) 10 mL Intracatheter Q8H [facility] Labs, Imaging and Studies reviewed: Results from last 7 days Lab Units 04/01/25 0514 03/31/25 0511 03/30/25 0505 WBC K/mcL 7.34 6.62 7.79 HGB g/dL 10.9* 11.0* 11.6* HCT % 33.8* 34.8* 35.3* PLT K/mcL 531* 506* 546* Results from last 7 days Lab Units 04/01/25 0514 03/31/25 0511 03/30/25 0505 SODIUM mmol/L 136 134* 135 POTASSIUM mmol/L 3.9 4.0 3.9 CHLORIDE mmol/L 104 100 101 BICARB mmol/L 25 27 25 BUN mg/dL 7* 8 7* CREATININE mg/dL 0.45 0.54 0.57 EGFR mL/min/1.73 m2 110 106 104 GLUCOSE mg/dL 91 84 102* CALCIUM mg/dL 8.8 8.5 8.9 PHOSPHORUS mg/dL 3.6 3.8 3.4 CLINIC SURGERY PROGRESS NOTE [id number] ASSESSMENT AND PLAN Jose Lind is a 59 y.o. female with history of former smoker, s/p breast reduction, colon polyps, diverticulitis who [facility] with worsening abdominal pain for a week. OSH CTAP: acute sigmoid diverticulitis with kay perforation and pelvic phlegmon, measuring 9.5 x 3.5cm Perforated Diverticulitis Intraabdominal Abscess Seroma - S/p ex-lap with diverting sigmoid colostomy and abdominal washout on 03/16 - C/b abscess formation - S/p b/l pelvic IR drain placement 03/26/25, L drain removed 03/31, planning for R drain removal 04/01 - ET following, appreciate their assistance - Pt tolerating low fiber diet, TPN stopped 03/27/25 - PT/OT/CM for dispo - F/u drain cultures: Mixed enteric with mod growth of bacteroides ovatus - Ct improved 03/30 - Still w/ seropurulent drainage in R drain - Ok to DC w/ drain, will follow up in office this Sunday to eval for drain removal - surgical medications/supplies sent to B this am Madi Bryant DO General Surgery Please contact surgical international project engineer professional caster 5PM-6AM and weekends - #[phone] SUBJECTIVE NAEO. Eager for DC. Tolerating diet. Remaining drain still seropurulent. PHYSICAL EXAM VITALS BP 125/85 Pulse 92 Temp 98.4 F (36.9 C) (Oral) Resp 16 Ht 5' 10 Wt 78.3 kg (172 lb 9.9 oz) SpO2 95% BMI 24.77 kg/m PHYSICAL EXAM General: Awake and alert, no acute distress Head: Normocephalic Eyes: EOM grossly intact Neck: Trachea midline Cardiovascular: Hemodynamically stable Pulmonary: Nonlabored breathing Extremities: No obvious deformities, warm and well perfused Skin: Dry and intact, no obvious rash Neurological: No gross focal deficits, answering questions appropriately GI: Abd soft, b/l lower abd mildly TTP, ostomy with pink mucosa w/ very small amount of stool in bag, C/D/I dressing, EULALIA x 1 seropurulent IMAGING Recent diagnostic imaging/reports reviewed. Pertinent findings may be listed above. Please correlate with formal radiology reads. LABS Laboratory studies ordered and reviewed. Pertinent findings may be listed below: Hgb: 10.9 04/01/25 WBC: 7.34 04/01/25 Plts: 531 04/01/25 Na: 136 04/01/25 K: 3.9 04/01/25 Cr: 0.45 04/01/25 INR: - - 04/01/25 UA obtained: pending 04/01/25 [facility] 03/31/2025 Jose Lind 1965 [id number] Assessment/Plan: Jose Lind is a 59 y.o. female with a history of diverticulosis who presented to [place] ED for abdominal pain, distention found to have perforated diverticulitis. [facility] for general surgery evaluation. S/p Ex-lap with bowel resection and ostomy 03/16/25 (Dr. Carrillo, ). Hospital course complicated by post-op ileus, intermittent tachycardia, and abnormal stress test. Diverticulitis with Perforation: With acute onset of abdominal pain 03/15/25. CTAP 03/16/25 showed acute sigmoid diverticulitis with perforation, pelvic phlegmon. S/p ex-lap with bowel resection and ostomy 03/16/25 (Dr. Carrillo, ). Repeat CTAP 03/22/25 showed developing abscesses in the pelvis, noted again on CT A/P 03/26/25. S/p drain placement with IR 03/26/25, fluid culture 03/26/25 with B ovatus (B fragilis). Continued Zosyn. Repeat CT A/P 03/30/25. GS following. Intermittent Tachycardia: likely multifactorial from pain, stress, electrolyte disturbance, infection, possible ischemic component. HR up to 130-140's intermittently. Multiple EKGs have shown SVT, atrial tachycardia, sinus tachycardia, PVCs. TTE 03/19/25 EF 43%, global hypokinesis. Cardiology followed, initiated BB. Abnormal stress test: PET stress 03/20/25 significantly abnormal and suggestive of LAD disease. 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 Cardiology followed, recommend OP follow up for evaluation of LHC. Postop Ileus: KUB 03/17/25 with possible postoperative ileus vs low grade partial SBO. Required NG tube. Required TPN 03/23-03/27/25. Improved. GS following. Incidental pulmonary nodule: CCTA with sub centimeter LLL nodule, recommend re-imaging in 12mo as OP. Code status: Full code DVT Prophylaxis: Lovenox Current living situation: Home Expected Disposition: Same Estimated discharge date: TBD, possibly 04/01/25? Pending GS recs Medically Ready for Discharge: No Subjective: Pt seen and examined. Pt sitting comfortably and no overnights events reported. Plan of care updated and pt agreeable: - S/p b/l pelvic IR drain placement 03/26/25, L drain removed 03/31, planning for R drain removal 04/01 - Pt tolerating low fiber diet, TPN stopped 03/27/25 I personally discussed case with CM and plan for discharge discussed post drain pull likely tomorrow. I personally reviewed imaging and CT AP w/IC contrast on 03/30 with near resolution of fluid collection seen. Physical Exam: BP 113/75 Pulse 65 Temp 97.9 F (36.6 C) (Oral) Resp 14 Ht 5' 10 Wt 78.2 kg (172 lb 6.4 oz) SpO2 97% BMI 24.74 kg/m General: NAD Eyes: EOMI, sclera clear ENT: neck supple Cardiovascular: Regular rate, no murmur Respiratory: Clear to auscultation, symmetric air entry Gastrointestinal: Soft, non distended, positive bowel sounds. Midline incisions well appearing. Ostomy in place. Genitourinary: no CVA tenderness Musculoskeletal: no major joint deformity Skin: warm, dry, no LE edema Neuro: Alert, oriented x3, no focal motor deficits Psych: Mood appropriate Current Medications: aspirin 81 mg Oral Daily atorvastatin 40 mg Oral Nightly cyclobenzaprine 10 mg Oral Q8H [facility] enoxaparin (LOVENOX) injection 40 mg Subcutaneous Daily metoprolol tartrate 50 mg Oral BID polyethylene glycol 17 g Oral Daily senna-docusate 1 tablet Oral BID sodium chloride (PF) 10 mL Intracatheter Q8H [facility] Labs, Imaging and Studies reviewed: Results from last 7 days Lab Units 03/31/25 0511 03/30/25 0505 03/29/25 0242 WBC K/mcL 6.62 7.79 8.91 HGB g/dL 11.0* 11.6* 11.9* HCT % 34.8* 35.3* 37.3 PLT K/mcL 506* 546* 528* Results from last 7 days Lab Units 03/31/25 0511 03/30/25 0505 03/29/25 0242 SODIUM mmol/L 134* 135 137 POTASSIUM mmol/L 4.0 3.9 4.5 CHLORIDE mmol/L 100 101 99 BICARB mmol/L 27 25 26 BUN mg/dL 8 7* 8 CREATININE mg/dL 0.54 0.57 0.61 EGFR mL/min/1.73 m2 106 104 102 GLUCOSE mg/dL 84 102* 100* CALCIUM mg/dL 8.5 8.9 8.8 PHOSPHORUS mg/dL 3.8 3.4 3.8 CLINIC SURGERY PROGRESS NOTE Patient Name: Jose Lind ASSESSMENT AND PLAN Jose Lind is a 59 y.o. female with history of former smoker, s/p breast reduction, colon polyps, diverticulitis who [facility] with worsening abdominal pain for a week. OSH CTAP: acute sigmoid diverticulitis with kay perforation and pelvic phlegmon, measuring 9.5 x 3.5cm Perforated Diverticulitis Intraabdominal Abscess Seroma - S/p ex-lap with diverting sigmoid colostomy and abdominal washout on 03/16 - C/b abscess formation - S/p b/l pelvic IR drain placement 03/26/25, L drain removed 03/31, planning for R drain removal 04/01 - ET following, appreciate their assistance - Pt tolerating low fiber diet, TPN stopped 03/27/25 - zosyn, EOT 03/30 - PT/OT/CM for dispo - F/u drain cultures: Mixed enteric with mod growth of bacteroides ovatus - Ct improved 03/30 Madi Bryant, DO General Surgery Please contact surgical international project engineer professional caster 5PM-6AM and weekends - #[phone] SUBJECTIVE NAEO. Ostomy o/p appropriate. Pain improved. Drains now serous. Midline with small amount of fat necrosis PHYSICAL EXAM VITALS BP 113/75 Pulse 65 Temp 97.9 F (36.6 C) (Oral) Resp 14 Ht 5' 10 Wt 78.2 kg (172 lb 6.4 oz) SpO2 97% BMI 24.74 kg/m PHYSICAL EXAM General: Awake and alert, no acute distress Head: Normocephalic Eyes: EOM grossly intact Neck: Trachea midline Cardiovascular: Hemodynamically stable Pulmonary: Nonlabored breathing Extremities: No obvious deformities, warm and well perfused Skin: Dry and intact, no obvious rash Neurological: No gross focal deficits, answering questions appropriately GI: Abd soft, b/l lower abd mildly TTP, ostomy with pink mucosa w/ very small amount of stool in bag, C/D/I dressing, EULALIA x 2 serous, R a bit murky still IMAGING Recent diagnostic imaging/reports reviewed. Pertinent findings may be listed above. Please correlate with formal radiology reads. LABS Laboratory studies ordered and reviewed. Pertinent findings may be listed below: Hgb: 11 03/31/25 WBC: 6.62 03/31/25 Plts: 506 03/31/25 Na: 134 03/31/25 K: 4 03/31/25 Cr: 0.54 03/31/25 INR: - - 03/31/25 UA obtained: pending 03/31/25 WOC/ET RN consult/evaluation note: Jose Lind seen s/p ex-lap with diverting sigmoid colostomy and abdominal washout on 03/16 Description of visit: pouch change and lesson, pt accompanied by her daughter who is a TCG Last pouch changed: Coloplast 10886 Tory cohesive ring on 03/30 Supplies/information left at bedside for home going: Coloplast 20897, [id number], Tory 2 inch cohesive ring, Cavilon No Sting Barrier film, Convatec adhesive remover, [facility] Stoma[facility]ive powder Book: [facility] What to Expect after colostomy Surgery, 2016 [employer] New Ostomy Patient Guide, 2019 [employer] Food Reference Chart How to Obtain Supplies sheet Tory Ostomy Educational Theatre listings Recommendation and/or education: -we discussed ADLs including, showering/bathing, swimming and clothing -we explained how to obtain supplies, and when to call MD vs. ET RN, etc. -ostomy clinic and office information provided. -patient was given ostomy supplies for home going and written teaching information. -we covered peristomal skin care, timing and frequency of ostomy pouch change and emptying. -pouch change instructions included; removing the pouch, best practice for cleansing the peristomal skin, we demonstrated how to measure stoma, how to cut the pouch and if additional accessories are needed -answered all questions to patient and her daughters satisfaction. -we will continue to follow for further education as she is nearing dc Ostomy documentation: 03/30/25 1715 Colostomy RLQ Descending/sigmoid Placement Date/Time: 03/16/251818 Location: RLQ Surgery Date: 03/16/25 Colostomy Type: Descending/sigmoid Stoma Shape Round Stoma Size (mm) 25 inches Stoma Appearance Red;Moist;Flush;Retracted Peristomal Assessment Denuded;Red;Mucocutaneous separation Stoma Functioning Yes Flatus Present Yes Stool Present Yes Treatment Skin sealant/skin barrier prep;Stoma powder applied;Barrier ring applied Stomal Appliance 1 piece appliance;Changed (44774 with cohesive ring) Effluent Appearance Thick;Pasty RN updated If pouch fails please call ET RN for assistance so we can educate them about changing the pouch. If after hours please apply a new pouch and alert ET RN, via secure chat or call our office and leave a message the pouch failed. Verbal consent obtained for any photographs uploaded to patient's chart. Please note that Wound/Ostomy Team is not available on weekends and holidays. GREGORY Santos Care Management Progress Note Date: 03/30/2025 Time: 2:38 PM Patient Name: Jose Lind Date of : 1965 Discharge Plan: D/C Disposition: Home Related to Current Admission?: Yes Final D/C Agency/Destination: Home Options Reviewed: Explained services/benefits Reason for Choice: Patient/Family preference Plan A: Home Discharging Transportation Plan: Transportation Type: Auto Discharge Plan Status: Updated pt in room that no [facility] agency has been secure for colostomy and possible VIR drain/flushes. . Pt understands. Her daughter and are having teaching lessons with ShawnWound nurse prior to discharge. Also pt has a good friend that is a nurse and another who is a PROJECT EXECUTIVE. Wound nurse will add ostomy resources to AVS per CM request. Prior notes: Pt lives with spouse Raz who is a teachable caregiver. . Pt confirmed that she does not have any concerns about returning home and managing colostomy without a SN through a [facility] agency, as she has a friend who is a RN for a [facility] agency and she lives close to her and can assist her with colostomy management upon discharge. . Family to transport on day of discharge. Assessment and Background Information: Nutrition Care Follow Up Monitoring and Evaluation: Diet advancement tolerated, pt currently receiving >50% of diet. Nutrition Diagnosis: Altered GI function related to post-op ileus s/p ex-lap with diverting sigmoid colostomy and abdominal washout as evidenced by NPO status x7 days and need for TPN to meet calorie and protein needs. Resolved Nutrition Intervention/Prescription: Current diet: low fiber with Boost plus tid Modify ONS to lunch daily Nutrition Goals: Tolerate diet with PO intakes >75% most meals and supplements Start Date:03/30/2025 Expected End Date:04/05/2025 Nutrition Education: No needs at this time Subjective: Doing ok with diet, eating >50% of meals. Did not drink Boost at lunch, saving it for later Objective: Pertinent clinical issues: TPN stopped 03/27; continues on low fiber diet. +colostomy, no output recorded. Drain x2: 108. CTAP today reveals near resolution of fluid collections. Oral nutrition supplements Boost Plus; Boost Plus Vanilla 3 times daily with meals Diet Special; Surgery; Low Fiber Recent intake: 50-75%; Current intake likely meets estimated needs. Difficulty Chewing/Swallowing: No Barriers to adequate nutrition intake: N/A or no barriers identified Current wt: 78.9 kg (174 lb) Admit wt: 81.6 kg GI Function: +colostomy w/ small stool output Skin Integrity: Surgical Incision(s) Fluid Status: + 1 pitting Edema noted Scheduled Meds: aspirin 81 mg Oral Daily atorvastatin 40 mg Oral Nightly cyclobenzaprine 10 mg Oral Q8H [facility] enoxaparin (LOVENOX) injection 40 mg Subcutaneous Daily metoprolol tartrate 50 mg Oral BID piperacillin-tazobactam (ZOSYN) extended infusion 3.375 g Intravenous Q8H polyethylene glycol 17 g Oral Daily senna-docusate 1 tablet Oral BID sodium chloride (PF) 10 mL Intracatheter Q8H [facility] Recent Labs 03/28/25 0529 03/29/25 0242 03/30/25 0505 NA 134* 137 135 K 4.4 4.5 3.9 BICARB 23 26 25 CL 97* 99 101 GLUCOSE 85 100* 102* BUN 12 8 7* CREATININE 0.52 0.61 0.57 MG 1.8 2.2 2.8* PHOS -- 3.8 3.4 Recent Labs 03/27/25 1421 03/27/25 1836 POCGLU 91 107* Estimated Energy Needs Total Energy Estimated Needs: 5482-4876 kcal Method for Estimating Needs: 25-30 kcal/kg IBW BMI 22 (69.5 kg) Total Protein Estimated Needs: 83-104 gm Method for Estimating Needs: 1.2-1.5 gm/kg IBW BMI 22 Fluid Needs Total Fluid Estimated Needs: 7192-6029 ml Method for Estimating Needs: ~1 ml/kcal Pearl Brito RD, LD, [facility] Vocera: SICU/Surgical Unit 1 Dietitian [facility] Inpatient Progress Note 03/30/2025 Jose Lind 1965 [id number] Assessment/Plan: Jose Lind is a 59 y.o. female with a history of diverticulosis who presented to [place] ED for abdominal pain, distention found to have perforated diverticulitis. [facility]25 for general surgery evaluation. S/p ex-lap with bowel resection and ostomy 03/16/25 (Dr. Carrillo, ). Hospital course complicated by post-op ileus, intermittent tachycardia, and abnormal stress test. Diverticulitis with Perforation: With acute onset of abdominal pain 03/15/2025. CTAP 03/16/2025 showed acute sigmoid diverticulitis with perforation, pelvic phlegmon. S/p ex-lap with bowel resection and ostomy 03/16/25 (Dr. Carrillo, ). Repeat CTAP 03/22/2025 showed developing abscesses in the pelvis, noted again on CT A/P 03/26/2025. S/p drain placement with IR 03/26/2025, fluid culture 03/26/2025 with B ovatus (B fragilis). Continued Zosyn. Repeat CT A/P 03/30/2025. GS following. Intermittent Tachycardia: likely multifactorial from pain, stress, electrolyte disturbance, infection, possible ischemic component. With HR up to 130-140's intermittently. Multiple EKGs have shown SVT, atrial tachycardia, sinus tachycardia, PVCs. TTE 03/19/25 EF 43%, global hypokinesis. Cardiology followed, initiated BB. Abnormal stress test: PET stress 03/20/25 significantly abnormal and suggestive of LAD disease. 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 Cardiology followed, recommend OP follow up for evaluation of LHC. Postoperative Ileus: KUB 03/17/25 with possible postoperative ileus vs low grade partial SBO. Required NG tube. Required TPN 03/23-03/27/2025. Improved. GS following. Incidental pulmonary nodule: CCTA with sub centimeter LLL nodule, recommend re-imaging in 12mo as OP. Code status: Full code DVT Prophylaxis: Lovenox Current living situation: Home Expected Disposition: Same Estimated discharge date: TBD, possibly 04/01/2025? Pending GS recs Medically Ready for Discharge: No Subjective: Patient seen examined, resting in bed this morning. Reports doing okay so far. No dyspnea, chest pain. Had been tolerating PO yesterday, does not overeat. No abdominal pain. Evaluated in ostomy with patient, she is now having stool output. Discussed with GS, still recommends CT to evaluate interval changes to lower pelvic abscess. Continued IV Zosyn. GS following. Physical Exam: BP 104/65 Pulse 74 Temp 98 F (36.7 C) (Oral) Resp 16 Ht 5' 10 Wt 78.9 kg (174 lb) SpO2 92% BMI 24.97 kg/m General: NAD Eyes: EOMI, sclera clear ENT: neck supple Cardiovascular: Regular rate, no murmur Respiratory: Clear to auscultation, symmetric air entry Gastrointestinal: Soft, non distended, positive bowel sounds. Midline incisions well appearing. Ostomy in place. Genitourinary: no CVA tenderness Musculoskeletal: no major joint deformity Skin: warm, dry, no LE edema Neuro: Alert, oriented x3, no focal motor deficits Psych: Mood appropriate Current Medications: aspirin 81 mg Oral Daily atorvastatin 40 mg Oral Nightly cyclobenzaprine 10 mg Oral Q8H [facility] enoxaparin (LOVENOX) injection 40 mg Subcutaneous Daily metoprolol tartrate 50 mg Oral BID piperacillin-tazobactam (ZOSYN) extended infusion 3.375 g Intravenous Q8H polyethylene glycol 17 g Oral Daily senna-docusate 1 tablet Oral BID sodium chloride (PF) 10 mL Intracatheter Q8H [facility] Labs, Imaging and Studies reviewed: Results from last 7 days Lab Units 03/30/25 0505 03/29/25 0242 03/28/25 0529 WBC K/mcL 7.79 8.91 9.91 HGB g/dL 11.6* 11.9* 11.2* HCT % 35.3* 37.3 34.7* PLT K/mcL 546* 528* 471* Results from last 7 days Lab Units 03/30/25 0505 03/29/25 0242 03/28/25 0529 03/27/25 0527 03/26/25 0413 SODIUM mmol/L 135 137 134* < > 133* POTASSIUM mmol/L 3.9 4.5 4.4 < > 4.5 CHLORIDE mmol/L 101 99 97* < > 101 BICARB mmol/L 25 26 23 < > 23 BUN mg/dL 7* 8 12 < > 9 CREATININE mg/dL 0.57 0.61 0.52 < > 0.47 EGFR mL/min/1.73 m2 104 102 107 < > 109 GLUCOSE mg/dL 102* 100* 85 < > 108* CALCIUM mg/dL 8.9 8.8 8.8 < > 8.4 PHOSPHORUS mg/dL 3.4 3.8 -- -- 3.0 < > = values in this interval not displayed. Results from last 7 days Lab Units 03/24/25 0418 ALT U/L 9 AST U/L 21 ALK PHOS U/L 76 BILIRUBIN TOTAL mg/dL 0.8 CLINIC SURGERY PROGRESS NOTE Patient Name: Jose Lidn ASSESSMENT AND PLAN Jose Lind is a 59 y.o. female with history of former smoker, s/p breast reduction, colon polyps, diverticulitis who [facility] with worsening abdominal pain for a week. OSH CTAP: acute sigmoid diverticulitis with kay perforation and pelvic phlegmon, measuring 9.5 x 3.5cm Perforated Diverticulitis - S/p ex-lap with diverting sigmoid colostomy and abdominal washout on 03/16 - C/b abscess formation - S/p b/l pelvic IR drain placement 03/26/25 - ET following, appreciate their assistance - Pt tolerating low fiber diet, TPN stopped 03/27/25 - No significant ostomy output past 48 hours, will contbowel reg - zosyn, EOT 03/30 - PT/OT/CM for dispo - F/u drain cultures: Mixed enteric with mod growth of bacteroides ovatus - Repeat CT w/ PO today Madi Bryant DO General Surgery Please contact surgical international project engineer professional caster 5PM-6AM and weekends - #[phone] SUBJECTIVE NAEO. Still no ostomy o/p for last 48h. L drain w/ 55 of seropurulent o/p. R drain w/ 53 of serous o/p. Discussed plans to rescan to eval for abscess drainage and any reason for ostomy o/p to be slowed PHYSICAL EXAM VITALS BP 111/71 Pulse 65 Temp 97.4 F (36.3 C) (Oral) Resp 15 Ht 5' 10 Wt 78.9 kg (174 lb) SpO2 90% BMI 24.97 kg/m PHYSICAL EXAM General: Awake and alert, no acute distress Head: Normocephalic Eyes: EOM grossly intact Neck: Trachea midline Cardiovascular: Hemodynamically stable Pulmonary: Nonlabored breathing Extremities: No obvious deformities, warm and well perfused Skin: Dry and intact, no obvious rash Neurological: No gross focal deficits, answering questions appropriately GI: Abd soft, b/l lower abd mildly TTP, ostomy with pink mucosa w/ very small amount of stool in bag, C/D/I dressing, EULALIA x 2 w/ seropurulent fluid IMAGING Recent diagnostic imaging/reports reviewed. Pertinent findings may be listed above. Please correlate with formal radiology reads. LABS Laboratory studies ordered and reviewed. Pertinent findings may be listed below: Hgb: 11.6 03/30/25 WBC: 7.79 03/30/25 Plts: 546 03/30/25 Na: 135 03/30/25 K: 3.9 03/30/25 Cr: 0.57 03/30/25 INR: - - 03/30/25 UA obtained: pending 03/30/25 03/30/2025 7:41 am - Per chart review the pt is comfortable discharging home without home health because she has a friend who is a RN and can help with colostomy if needed. Barriers to finding a [facility] agency: Insurance not widely accepted/pt location. If [facility], and [facility] decline then all home care options will have been exhausted and the pt will need an alternate plane at discharge. Inpatient social media coordinator notified. Name of [facility] agency: Pending / Accepted (if [facility], include region) No accepting agencies in pt area. Referrals sent to: (names of agencies) [facility]- Out of network [facility]- Can't accommodate ostomy [facility]- Out of services area. [facility]- out of service area [facility] (orders) created for the following services: [or waiting for ____ (i.e wound care)] Yes- SN Verify demographics (residential address) [address] [facility] [address] What is the primary number to reach you? [phone] Following physician will be: (list first name/last name) Lavinia Carrillo MD Do you have a caregiver and/or teachable caregiver (list relationship, name & phone #)? Significant Other Estimated Discharge Date (KATIANA): 03/24 If discharge needs change, please reach out to liaison assigned on treatment team as hub is not notified of new consults once team is following. Thank you. CLINIC SURGERY PROGRESS NOTE Patient Name: Jose Lind ASSESSMENT AND PLAN Jose Lind is a 59 y.o. female with history of former smoker, s/p breast reduction, colon polyps, diverticulitis who [facility] with worsening abdominal pain for a week. OSH CTAP: acute sigmoid diverticulitis with kay perforation and pelvic phlegmon, measuring 9.5 x 3.5cm Perforated Diverticulitis - S/p ex-lap with diverting sigmoid colostomy and abdominal washout on 03/16 - C/b abscess formation - S/p b/l pelvic IR drain placement 03/26/25 - ET following, appreciate their assistance - Pt tolerating low fiber diet, TPN stopped 03/27/25 - No significant ostomy output past 24 hours, will add bowel reg - Cont zosyn, EOT 03/30 - PT/OT/CM for dispo - F/u drain cultures: Mixed enteric with mod growth of bacteroides ovatus Dilia Wheeler Ii, MD General Surgery Please contact surgical international project engineer professional caster 5PM-6AM and weekends - #[phone] SUBJECTIVE NAEO. Pain is slightly better with muscle relaxer, still mostly at drains with R>L. Tolerated some food yesterday, still lower intake than usual for her PHYSICAL EXAM VITALS BP 107/75 Pulse 65 Temp 97.9 F (36.6 C) (Oral) Resp 14 Ht 5' 10 Wt 78.9 kg (174 lb) SpO2 94% BMI 24.97 kg/m PHYSICAL EXAM General: Awake and alert, no acute distress Head: Normocephalic Eyes: EOM grossly intact Neck: Trachea midline Cardiovascular: Hemodynamically stable Pulmonary: Nonlabored breathing Extremities: No obvious deformities, warm and well perfused Skin: Dry and intact, no obvious rash Neurological: No gross focal deficits, answering questions appropriately GI: Abd soft, b/l lower abd mildly TTP, ostomy with pink mucosa w/ very small amount of stool in bag, C/D/I dressing, EULALIA x 2 w/ seropurulent fluid IMAGING Recent diagnostic imaging/reports reviewed. Pertinent findings may be listed above. Please correlate with formal radiology reads. LABS Laboratory studies ordered and reviewed. Pertinent findings may be listed below: Hgb: 11.9 03/29/25 WBC: 8.91 03/29/25 Plts: 528 03/29/25 Na: 137 03/29/25 K: 4.5 03/29/25 Cr: 0.61 03/29/25 INR: - - 03/29/25 UA obtained: pending 03/29/25 [facility] Inpatient Progress Note 03/29/2025 Jose Lind 1965 [id number] Assessment/Plan: Jose Lind is a 59 y.o. female with a history of diverticulosis who presented to [place] ED for abdominal pain, distention found to have perforated diverticulitis. [facility]25 for general surgery evaluation. S/p ex-lap with bowel resection and ostomy 03/16/25 (Dr. Carrillo, ). Hospital course complicated by post-op ileus, intermittent tachycardia, and abnormal stress test. Diverticulitis with Perforation: With acute onset of abdominal pain 03/15/2025. CTAP 03/16/2025 showed acute sigmoid diverticulitis with perforation, pelvic phlegmon. S/p ex-lap with bowel resection and ostomy 03/16/25 (Dr. Carrillo, ). Repeat CTAP 03/22/2025 showed developing abscesses in the pelvis, noted again on CT A/P 03/26/2025. S/p drain placement with IR 03/26/2025, fluid culture 03/26/2025 with B ovatus (B fragilis). Continued Zosyn. GS following. Intermittent Tachycardia: likely multifactorial from pain, stress, electrolyte disturbance, infection, possible ischemic component. With HR up to 130-140's intermittently. Multiple EKGs have shown SVT, atrial tachycardia, sinus tachycardia, PVCs. TTE 03/19/25 EF 43%, global hypokinesis. Cardiology followed, initiated BB. Abnormal stress test: PET stress 03/20/25 significantly abnormal and suggestive of LAD disease. 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 Cardiology followed, recommend OP follow up for evaluation of LHC. Postoperative Ileus: KUB 03/17/25 with possible postoperative ileus vs low grade partial SBO. Required NG tube. Required TPN 03/23-03/27/2025. Improved. GS following. Incidental pulmonary nodule: CCTA with sub centimeter LLL nodule, recommend re-imaging in 12mo as OP. Code status: Full code DVT Prophylaxis: Lovenox Current living situation: Home Expected Disposition: Same Estimated discharge date: TBD, possibly 04/01/2025? Pending GS recs Medically Ready for Discharge: No Subjective: Patient seen examined, resting in bed this morning. Reports doing okay at present. Has had very little fecal material as output of ostomy. Denies dyspnea, chest pain. No nausea or vomiting. Denies abdominal pain. She is tolerating PO - did have some acid reflux yesterday, none today so far. Yesterday she did eat some of her meals in the hospital, few bites of [employer]; states she is taking it slow as she is worried about obstruction. Continue IV Zosyn. KUB 03/28/2025 with epigastric distention measuring up to 3.8 cm, possible obstruction/ileus; stable from prior exam. GS following, added bowel regimen. Physical Exam: BP 107/75 Pulse 65 Temp 97.9 F (36.6 C) (Oral) Resp 14 Ht 5' 10 Wt 78.9 kg (174 lb) SpO2 94% BMI 24.97 kg/m General: NAD Eyes: EOMI, sclera clear ENT: neck supple Cardiovascular: Regular rate, no murmur Respiratory: Clear to auscultation, symmetric air entry Gastrointestinal: Soft, non distended, positive bowel sounds. Midline incisions well appearing. Ostomy in place. Genitourinary: no CVA tenderness Musculoskeletal: no major joint deformity Skin: warm, dry, no LE edema Neuro: Alert, oriented x3, no focal motor deficits Psych: Mood appropriate Current Medications: aspirin 81 mg Oral Daily atorvastatin 40 mg Oral Nightly cyclobenzaprine 10 mg Oral Q8H [facility] enoxaparin (LOVENOX) injection 40 mg Subcutaneous Daily metoprolol tartrate 50 mg Oral BID piperacillin-tazobactam (ZOSYN) extended infusion 3.375 g Intravenous Q8H polyethylene glycol 17 g Oral Daily senna-docusate 1 tablet Oral BID sodium chloride (PF) 10 mL Intracatheter Q8H [facility] Labs, Imaging and Studies reviewed: Results from last 7 days Lab Units 03/29/25 0242 03/28/25 0529 03/27/25 05 WBC K/mcL 8.91 9.91 13.51* HGB g/dL 11.9* 11.2* 11.7* HCT % 37.3 34.7* 37.1 PLT K/mcL 528* 471* 488* Results from last 7 days Lab Units 03/29/25 0242 03/28/25 0529 03/27/25 0527 03/26/25 0413 03/24/25 1604 03/24/25 0418 SODIUM mmol/L 137 134* 131* 133* < > 135 POTASSIUM mmol/L 4.5 4.4 4.8 4.5 < > 3.9 CHLORIDE mmol/L 99 97* 99 101 < > 101 BICARB mmol/L 26 23 24 23 < > 26 BUN mg/dL 8 12 10 9 < > 5* CREATININE mg/dL 0.61 0.52 0.48 0.47 < > 0.48 EGFR mL/min/1.73 m2 102 107 109 109 < > 109 GLUCOSE mg/dL 100* 85 89 108* < > 110* CALCIUM mg/dL 8.8 8.8 8.3* 8.4 < > 8.5 PHOSPHORUS mg/dL 3.8 -- -- 3.0 -- 2.7 < > = values in this interval not displayed. Results from last 7 days Lab Units 03/24/25 0418 ALT U/L 9 AST U/L 21 ALK PHOS U/L 76 BILIRUBIN TOTAL mg/dL 0.8 CLINIC SURGERY PROGRESS NOTE Patient Name: Jose Lind ASSESSMENT AND PLAN Jose Lind is a 59 y.o. female with history of former smoker, s/p breast reduction, colon polyps, diverticulitis who [facility] with worsening abdominal pain for a week. OSH CTAP: acute sigmoid diverticulitis with kay perforation and pelvic phlegmon, measuring 9.5 x 3.5cm Perforated Diverticulitis - S/p ex-lap with diverting sigmoid colostomy and abdominal washout on 03/16 - C/b abscess formation - S/p b/l pelvic IR drain placement 03/26/25 - ET following, appreciate their assistance - Pt tolerating low fiber diet, TPN stopped 03/27/25 - Cont zosyn, EOT 03/30 - PT/OT/CM for dispo - F/u drain cultures: Mixed enteric with mod growth of bacteroides ovatus Dilia Wheeler Ii, MD General Surgery Please contact surgical international project engineer professional caster 5PM-6AM and weekends - #[phone] SUBJECTIVE NAEO. Pain generally controlled, can be more severe at times at drain insertion sites, but rest of abdomen is improving still. No nausea. Tolerated diet yesterday but didn't eat too much, wants to eat more today. PHYSICAL EXAM VITALS BP 125/74 Pulse 66 Temp 97.6 F (36.4 C) (Oral) Resp 14 Ht 5' 10 Wt 78.9 kg (174 lb) SpO2 94% BMI 24.97 kg/m PHYSICAL EXAM General: Awake and alert, no acute distress Head: Normocephalic Eyes: EOM grossly intact Neck: Trachea midline Cardiovascular: Hemodynamically stable Pulmonary: Nonlabored breathing Extremities: No obvious deformities, warm and well perfused Skin: Dry and intact, no obvious rash Neurological: No gross focal deficits, answering questions appropriately GI: Abd soft, b/l lower abd mildly TTP, ostomy with pink mucosa w/ stool o/p, C/D/I dressing, EULALIA x 2 w/ seropurulent fluid IMAGING Recent diagnostic imaging/reports reviewed. Pertinent findings may be listed above. Please correlate with formal radiology reads. LABS Laboratory studies ordered and reviewed. Pertinent findings may be listed below: Hgb: 11.2 03/28/25 WBC: 9.91 03/28/25 Plts: 471 03/28/25 Na: 134 03/28/25 K: 4.4 03/28/25 Cr: 0.52 03/28/25 INR: - - 03/28/25 UA obtained: pending 03/28/25 [facility] 03/28/2025 Jose Lind 1965 [id number] Assessment/Plan: Jose Lind is a 59 y.o. female with a history of diverticulosis who presented to [place] ED for abdominal pain, distention found to have perforated diverticulitis. [facility]/16/2025 for general surgery evaluation. S/p ex-lap with bowel resection and ostomy 03/16/25 (Dr. Carrillo, ). Hospital course complicated by post-op ileus, intermittent tachycardia, and abnormal stress test. Diverticulitis with Perforation: With acute onset of abdominal pain 03/15/2025. CTAP 03/16/2025 showed acute sigmoid diverticulitis with perforation, pelvic phlegmon. S/p ex-lap with bowel resection and ostomy 03/16/25 (Dr. Carrillo, ). Repeat CTAP 03/22/2025 showed developing abscesses in the pelvis, noted again on CT A/P 03/26/2025. S/p drain placement with IR 03/26/2025, fluid culture 03/26/2025 with normal vesta. Continued Zosyn. General Surgery following. Intermittent Tachycardia: likely multifactorial from pain, stress, electrolyte disturbance, infection, possible ischemic component. With HR up to 130-140's intermittently. Multiple EKGs have shown SVT, atrial tachycardia, sinus tachycardia, PVCs. TTE 03/19/25 EF 43%, global hypokinesis. Cardiology followed, initiated BB. Abnormal stress test: PET stress 03/20/25 significantly abnormal and suggestive of LAD disease. 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 Cardiology followed, recommend OP follow up for evaluation of LHC. Postoperative Ileus: KUB 03/17/25 with possible postoperative ileus vs low grade partial SBO. Required NG tube. Required TPN 03/23-03/27/2025. Improved. GS following. Incidental pulmonary nodule: CCTA with sub centimeter LLL nodule, recommend re-imaging in 12mo as OP. Code status: Full code DVT Prophylaxis: Lovenox Current living situation: Home Expected Disposition: Same Estimated discharge date: TBD, suspect 2 days pending GS recs Medically Ready for Discharge: No Subjective: Patient seen and examined, resting bed this morning. Ambulatory in room. Reports doing okay at present. Is tolerating PO diet so far. No significant nausea, vomiting. Has some abdominal soreness, otherwise is tolerating. No dyspnea, chest pain. Adjusted lab work. Discontinue telemetry overall. Not quite medically ready, but is medically progressing. Suspect KATIANA within a couple days. Continued IV Zosyn. Physical Exam: BP 118/84 (BP Location: Right arm, Patient Position: Sitting) Pulse 76 Temp 98.1 F (36.7 C) (Oral) Resp 14 Ht 5' 10 Wt 78.9 kg (174 lb) SpO2 94% BMI 24.97 kg/m General: NAD Eyes: EOMI, sclera clear ENT: neck supple Cardiovascular: Regular rate, no murmur Respiratory: Clear to auscultation, symmetric air entry Gastrointestinal: Soft, non distended, positive bowel sounds. Midline incisions well appearing. Ostomy in place. Genitourinary: no CVA tenderness Musculoskeletal: no major joint deformity Skin: warm, dry, no LE edema Neuro: Alert, oriented x3, no focal motor deficits Psych: Mood appropriate Current Medications: aspirin 81 mg Oral Daily atorvastatin 40 mg Oral Nightly cyclobenzaprine 10 mg Oral Q8H [facility] enoxaparin (LOVENOX) injection 40 mg Subcutaneous Daily metoprolol tartrate 50 mg Oral BID piperacillin-tazobactam (ZOSYN) extended infusion 3.375 g Intravenous Q8H sodium chloride (PF) 10 mL Intracatheter Q8H [facility] Labs, Imaging and Studies reviewed: Results from last 7 days Lab Units 03/28/25 0529 03/27/25 0527 03/26/25 0413 WBC K/mcL 9.91 13.51* 13.42* HGB g/dL 11.2* 11.7* 11.3* HCT % 34.7* 37.1 36.0 PLT K/mcL 471* 488* 400 Results from last 7 days Lab Units 03/28/25 0529 03/27/25 0527 03/26/25 0413 03/24/25 1604 03/24/25 0418 03/23/25 0424 SODIUM mmol/L 134* 131* 133* < > 135 135 POTASSIUM mmol/L 4.4 4.8 4.5 < > 3.9 3.6 CHLORIDE mmol/L 97* 99 101 < > 101 100 BICARB mmol/L 23 24 23 < > 26 27 BUN mg/dL 12 10 9 < > 5* 3* CREATININE mg/dL 0.52 0.48 0.47 < > 0.48 0.51 EGFR mL/min/1.73 m2 107 109 109 < > 109 107 GLUCOSE mg/dL 85 89 108* < > 110* 99 CALCIUM mg/dL 8.8 8.3* 8.4 < > 8.5 8.6 PHOSPHORUS mg/dL -- -- 3.0 -- 2.7 3.6 < > = values in this interval not displayed. Results from last 7 days Lab Units 03/24/25 0418 ALT U/L 9 AST U/L 21 ALK PHOS U/L 76 BILIRUBIN TOTAL mg/dL 0.8 WOC/ET RN consult/evaluation note: Jose Ermeliezer seen s/p ex-lap with diverting sigmoid colostomy and abdominal washout on 03/16. Description of visit: -Pouch change with lesson -pt in pain from drain placement present and very attentive Pouch/Products used today: Coloplast 29171 with cohesive ring Last pouch changed: 03/27/25 Recommendation and/or education: -we covered peristomal skin care, timing and frequency of ostomy pouch change and emptying. -pouch change instructions included; removing the pouch, best practice for cleansing the peristomal skin, we demonstrated how to measure stoma, how to cut the pouch and if additional accessories are needed -answered all questions to patient satisfaction. -we will continue to follow for further education Ostomy documentation: 03/27/25 173 Colostomy RLQ Descending/sigmoid Placement Date/Time: 03/16/251818 Location: RLQ Surgery Date: 03/16/25 Colostomy Type: Descending/sigmoid Stoma Shape Round Stoma Size (mm) 25 inches Stoma Appearance Red;Retracted;Moist Peristomal Assessment Peristomal ulceratons;Mucocutaneous separation;Painful;Denuded Stoma Functioning Yes Flatus Present Yes Stool Present Yes Treatment Stoma powder applied;Skin sealant/skin barrier prep;Barrier ring applied Stomal Appliance 1 piece appliance;Changed (16335) Effluent Appearance Thick RN updated If pouch fails please call ET RN for assistance so we can educate them about changing the pouch. If after hours please apply a new pouch and alert ET RN, via secure chat or call our office and leave a message the pouch failed. Verbal consent obtained for any photographs uploaded to patient's chart. Please note that Wound/Ostomy Team is not available on weekends and holidays. GREGORY Santos Care Management Progress Note Date: 03/27/2025 Time: 4:22 PM Patient Name: Jose Lind Date of : 1965 Discharge Plan: D/C Disposition: Home Related to Current Admission?: Yes Final D/C Agency/Destination: Home Options Reviewed: Explained services/benefits Reason for Choice: Patient/Family preference Plan A: Home Discharging Transportation Plan: Transportation Type: Auto Discharge Plan Status: Care management following. HYDROELECTRIC PLANT ELECTRICIAN updated by liaison that there are no available [facility] agencies with pt's service area that accept her INS coverage and therefore a [facility] agency for SN to assist with colostomy management unable to be secured. HYDROELECTRIC PLANT ELECTRICIAN met with pt and spouse (Raz) at bedside to update. Pt confirmed that she does not have any concerns about returning home and managing colostomy without a SN through a [facility] agency, as she has a friend who is a RN for a [facility] agency and she lives close to her and can assist her with colostomy management upon discharge. Covering hospitalist updated. Per chart review, plan is to discontinue TPN today. Pt has two drains placed at this time and is not yet medically stable for discharge at this time. Family to transport on day of discharge. No further care management needs identified at this time. Will continue to follow and assist with any additional needs that arise prior to discharge. [facility] 03/27/2025 Jose Lind 1965 [id number] Assessment/Plan: Jose Lind is a 59 y.o. female with a history of diverticulosis who presented to [place] ED for abdominal pain, distention found to have perforated diverticulitis. [facility]25 for general surgery evaluation. S/p ex-lap with bowel resection and ostomy 03/16/25 (Dr. Carrillo, ). Hospital course complicated by post-op ileus, intermittent tachycardia, and abnormal stress test. Diverticulitis with Perforation: With acute onset of abdominal pain 03/15/2025. CTAP 03/16/2025 showed acute sigmoid diverticulitis with perforation, pelvic phlegmon. S/p ex-lap with bowel resection and ostomy 03/16/25 (Dr. Carrillo, ). Repeat CTAP 03/22/2025 showed developing abscesses in the pelvis, noted again on CT A/P 03/26/2025. S/p drain placement with IR 03/26/2025, fluid culture 03/26/2025 pending. Continued Zosyn. General Surgery following. Intermittent Tachycardia: likely multifactorial from pain, stress, electrolyte disturbance, infection, possible ischemic component. With HR up to 130-140's intermittently. Multiple EKGs have shown SVT, atrial tachycardia, sinus tachycardia, PVCs. TTE 03/19/25 EF 43%, global hypokinesis. Cardiology followed, initiated BB. Abnormal stress test: PET stress 03/20/25 significantly abnormal and suggestive of LAD disease. 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 Cardiology followed, recommend OP follow up for evaluation of LHC. Postoperative Ileus: KUB 03/17/25 with possible postoperative ileus vs low grade partial SBO. Required NG tube. Required TPN 03/23-03/27/2025. Improved. GS following. Incidental pulmonary nodule: CCTA with sub centimeter LLL nodule, recommend re-imaging in 12mo as OP. Code status: Full code DVT Prophylaxis: Lovenox Current living situation: Home Expected Disposition: Same Estimated discharge date: TBD Medically Ready for Discharge: No Subjective: Patient seen and examined, resting bed this morning. Reports feeling better today, has improved spirits as her diet was advanced and she is able to get PO. States after drain placement to her lower pelvic fluid collection, her lower pelvic abdominal pain has greatly improved. Currently without nausea. No chest pain, dyspnea. States she slept well last night. Discussed with CONTRACT SERVICEMAN, patient lives [place], no [facility] companies to service her area, likely can go home with new ostomy with the training she learns during this hospital stay alone. On TPN, needs close monitoring. AM Cr 0.48, K 4.8, Na 131. Continued IV Zosyn. GS following. Requiring IV opiates. Physical Exam: BP 127/85 (BP Location: Left arm, Patient Position: Lying) Pulse 82 Temp 97.7 F (36.5 C) (Oral) Resp 16 Ht 5' 10 Wt 78.9 kg (174 lb) SpO2 94% BMI 24.97 kg/m General: NAD Eyes: EOMI, sclera clear ENT: neck supple Cardiovascular: Regular rate, no murmur Respiratory: Clear to auscultation, symmetric air entry Gastrointestinal: Soft, non distended, positive bowel sounds. Midline incisions with nichol, mild erythema appears appropriate, no incisional drainage. Ostomy in place. Genitourinary: no CVA tenderness Musculoskeletal: no major joint deformity Skin: warm, dry, no LE edema Neuro: Alert, oriented x3, no focal motor deficits Psych: Mood appropriate Current Medications: aspirin 81 mg Oral Daily atorvastatin 40 mg Oral Nightly enoxaparin (LOVENOX) injection 40 mg Subcutaneous Daily insulin lispro 0-30 Units Subcutaneous Q4H [facility] metoprolol tartrate 50 mg Oral BID piperacillin-tazobactam (ZOSYN) extended infusion 3.375 g Intravenous Q8H sodium chloride (PF) 10 mL Intracatheter Q8H [facility] Labs, Imaging and Studies reviewed: Results from last 7 days Lab Units 06/06/25 0527 03/26/25 0413 03/25/25 0456 WBC K/mcL 13.51* 13.42* 11.06* HGB g/dL 11.7* 11.3* 11.5* HCT % 37.1 36.0 35.1* PLT K/mcL 488* 400 385 Results from last 7 days Lab Units 03/27/25 0527 03/26/25 0413 03/25/25 0456 03/24/25 1604 03/24/25 0418 03/23/25 0424 SODIUM mmol/L 131* 133* 134* -- 135 135 POTASSIUM mmol/L 4.8 4.5 4.3 < > 3.9 3.6 CHLORIDE mmol/L 99 101 103 -- 101 100 BICARB mmol/L 24 23 23 -- 26 27 BUN mg/dL 10 9 6* -- 5* 3* CREATININE mg/dL 0.48 0.47 0.45 -- 0.48 0.51 EGFR mL/min/1.73 m2 109 109 110 -- 109 107 GLUCOSE mg/dL 89 108* 106* -- 110* 99 CALCIUM mg/dL 8.3* 8.4 8.6 -- 8.5 8.6 PHOSPHORUS mg/dL -- 3.0 -- -- 2.7 3.6 < > = values in this interval not displayed. Results from last 7 days Lab Units 03/24/258 ALT U/L 9 AST U/L 21 ALK PHOS U/L 76 BILIRUBIN TOTAL mg/dL 0.8 CLINIC SURGERY PROGRESS NOTE Patient Name: Jose Lind ASSESSMENT AND PLAN Jose Lind is a 59 y.o. female with history of former smoker, s/p breast reduction, colon polyps, diverticulitis who [facility] with worsening abdominal pain for a week. OSH CTAP: acute sigmoid diverticulitis with kay perforation and pelvic phlegmon, measuring 9.5 x 3.5cm Perforated Diverticulitis - S/p ex-lap with diverting sigmoid colostomy and abdominal washout on 03/16 - ET following, appreciate their assistance - Adv to low fiber - Cont zosyn, EOT 03/30 - PT/OT/CM for dispo - Ok to wean TPN today - F/u drain cultures Madi Bryant DO General Surgery Please contact surgical international project engineer professional caster 5PM-6AM and weekends - #[phone] SUBJECTIVE NAEO. Pain greatly improved after IR drains. Ostomy working. Hungry this am. Review of Systems: All systems were reviewed and otherwise negative except for as noted above PHYSICAL EXAM VITALS BP 127/85 (BP Location: Left arm, Patient Position: Lying) Pulse 82 Temp 97.7 F (36.5 C) (Oral) Resp 16 Ht 5' 10 Wt 78.9 kg (174 lb) SpO2 94% BMI 24.97 kg/m PHYSICAL EXAM General: Awake and alert, no acute distress Head: Normocephalic Eyes: EOM grossly intact Neck: Trachea midline Cardiovascular: Hemodynamically stable Pulmonary: Nonlabored breathing Extremities: No obvious deformities, warm and well perfused Skin: Dry and intact, no obvious rash Neurological: No gross focal deficits, answering questions appropriately GI: Abd soft, b/l lower abd mildly TTP, ostomy with pink mucosa w/ stool o/p, C/D/I dressing, EULALIA x 2 w/ seropurulent fluid IMAGING Recent diagnostic imaging/reports reviewed. Pertinent findings may be listed above. Please correlate with formal radiology reads. LABS Laboratory studies ordered and reviewed. Pertinent findings may be listed below: Hgb: 11.7 03/27/25 WBC: 13.51 03/27/25 Plts: 488 03/27/25 Na: 131 03/27/25 K: 4.8 03/27/25 Cr: 0.48 03/27/25 INR: - - 03/27/25 UA obtained: pending 03/27/25 03/27/2025 7:46 am - Per consult, the pt will need home health for new colostomy management, and the pt will not discharge with TPN. Pt preference for [facility] care is listed as [facility]. However, [facility] does not service the area. Referral sent to alternate agencies. Barriers to finding a [facility] agency: Insurance not widely accepted/pt location. If [facility], and [facility] decline then all home care options will have been exhausted and the pt will need an alternate plane at discharge. Inpatient social media coordinator notified. Name of [facility] agency: Pending / Accepted (if [facility], include region) No accepting agencies in pt area. Referrals sent to: (names of agencies) [facility]- Out of network [facility]- Can't accommodate ostomy [facility] of services [facility] (orders) created for the following services: [or waiting for ____ (i.e wound care)] Yes- SN Verify demographics (residential address) [address] [facility] [address] What is the primary number to reach you? [phone] Following physician will be: (list first name/last name) Lavinia Carrillo MD Do you have a caregiver and/or teachable caregiver (list relationship, name & phone #)? Significant Other Estimated Discharge Date (KATIANA): 03/24 If discharge needs change, please reach out to liaison assigned on treatment team as hub is not notified of new consults once team is following. Thank you. [facility] Progress Note 03/26/2025 Jose Lind 1965 [id number] Assessment/Plan: Jose Lind is a 59 y.o. female with a history of diverticulosis who presented to [place] ED for abdominal pain, distention found to have perforated diverticulitis. [facility] for general surgery evaluation. S/p ex-lap with bowel resection and ostomy 03/16/25 (Dr. Carrillo, ). Hospital course complicated by post-op ileus, intermittent tachycardia, and abnormal stress test. Diverticulitis with Perforation: With acute onset of abdominal pain 03/15/2025. CTAP 03/16/2025 showed acute sigmoid diverticulitis with perforation, pelvic phlegmon. S/p ex-lap with bowel resection and ostomy 03/16/25 (Dr. Carrillo, ). Repeat CTAP 03/22/2025 showed developing abscesses in the pelvis, noted again on CT A/P 03/26/2025. S/p drain placement with IR 03/26/2025. Continued Zosyn. General Surgery following. Intermittent Tachycardia: likely multifactorial from pain, stress, electrolyte disturbance, infection, possible ischemic component. With HR up to 130-140's intermittently. Multiple EKGs have shown SVT, atrial tachycardia, sinus tachycardia, PVCs. TTE 03/19/25 EF 43%, global hypokinesis. Cardiology followed, initiated BB. Abnormal stress test: PET stress 03/20/25 significantly abnormal and suggestive of LAD disease. 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 Cardiology followed, recommend OP follow up for evaluation of LHC. Postoperative Ileus: KUB 03/17/25 with possible postoperative ileus vs low grade partial SBO. Required NG tube. TPN started 03/23/2025. Surgery managing. Incidental pulmonary nodule: CCTA with sub centimeter LLL nodule, recommend re-imaging in 12mo as OP. Code status: Full DVT Prophylaxis: Lovenox Current living situation: Home Expected Disposition: likely home, therapy consulted Estimated discharge date: TBD Medically Ready for Discharge: no - pending ileus and heart cath Subjective: Patient seen examined this morning, resting in bed. Reports feeling increasing pain in her lower pelvis, states worsened with full bladder. No dyspnea, chest pain. No nausea or vomiting. Interval CT A/P with persistent pelvic fluid collection. IR consulted for evaluation for drain placement. WBC 13, Hgb 11.3. Cr 0.47. Discussed with CONTRACT SERVICEMAN, patient is not medically ready. S/p drain placement 03/26/2025 with IR. Requiring IV opiates. Continued IV Zosyn. On TPN, needs close monitoring. GS following. Physical Exam: BP 105/61 (BP Location: Left arm, Patient Position: Lying) Pulse 71 Temp 99.4 F (37.4 C) (Oral) Resp (!) 24 Ht 5' 10 Wt 78.9 kg (174 lb) SpO2 95% BMI 24.97 kg/m General: NAD Eyes: EOMI, sclera clear ENT: neck supple Cardiovascular: Regular rate, no murmur Respiratory: Clear to auscultation, symmetric air entry Gastrointestinal: Soft, non distended, positive bowel sounds. Midline incision with nichol, mild postop erythema but no purulent drainage. Ostomy in place. Genitourinary: no CVA tenderness Musculoskeletal: no major joint deformity Skin: warm, dry, no LE edema Neuro: Alert, oriented x3, no focal motor deficits Psych: Mood appropriate Current Medications: aspirin 81 mg Oral Daily atorvastatin 40 mg Oral Nightly enoxaparin (LOVENOX) injection 40 mg Subcutaneous Daily insulin lispro 0-30 Units Subcutaneous Q4H [facility] metoprolol tartrate 50 mg Oral BID piperacillin-tazobactam (ZOSYN) extended infusion 3.375 g Intravenous Q8H sodium chloride (PF) 10 mL Intracatheter Q8H [facility] Labs, Imaging and Studies reviewed: Results from last 7 days Lab Units 03/26/25 0413 03/25/25 0456 03/24/25 0418 WBC K/mcL 13.42* 11.06* 8.11 HGB g/dL 11.3* 11.5* 11.7* HCT % 36.0 35.1* 37.2 PLT K/mcL 400 385 393 Results from last 7 days Lab Units 03/26/25 0413 03/25/25 0456 03/24/25 1604 03/24/25 0418 03/23/25 0424 SODIUM mmol/L 133* 134* -- 135 135 POTASSIUM mmol/L 4.5 4.3 4.2 3.9 3.6 CHLORIDE mmol/L 101 103 -- 101 100 BICARB mmol/L 23 23 -- 26 27 BUN mg/dL 9 6* -- 5* 3* CREATININE mg/dL 0.47 0.45 -- 0.48 0.51 EGFR mL/min/1.73 m2 109 110 -- 109 107 GLUCOSE mg/dL 108* 106* -- 110* 99 CALCIUM mg/dL 8.4 8.6 -- 8.5 8.6 PHOSPHORUS mg/dL 3.0 -- -- 2.7 3.6 Results from last 7 days Lab Units 03/24/25 0418 ALT U/L 9 AST U/L 21 ALK PHOS U/L 76 BILIRUBIN TOTAL mg/dL 0.8 Nutrition Care Follow up Monitoring and Evaluation: Diet advancement tolerated. TPN provided to meet estimated energy/protein needs per Nutrition Support Team (NST). Nutrition Diagnosis: Altered GI function related to post-op ileus s/p ex-lap with diverting sigmoid colostomy and abdominal washout as evidenced by NPO status x7 days and need for TPN to meet calorie and protein needs. Resolving Nutrition Intervention: Continue meals and snacks medical food supplement s/p IR procedure as medically able Continue TPN per NST Nutrition Prescription: Diet:NPO Oral nutrition supplement: Boost Plus (vanilla) with each meal (TID) Parenteral Nutrition: see Nutrition Support Team (NST) note Nutrition Goals: Tolerate diet advancement TPN to meet nutritional needs until oral/enteral route established Start Date:03/26/2025 Expected End Date:03/30/2025 Nutrition Education: no needs/will monitor for needs Assessment: Pertinent clinical information: NGT removed and started on CLD 03/24. Advanced to FLD + Boost supplements on 03/25. NPO this am for IR procedure-abscess drain placement vs aspiration. Weaned TPN to continue at this time. Colostomy continues with bowel function. Height: 5' 10 Current weight: 78.9 kg (174 lb)-stated BMI Body mass index is 24.97 kg/m . Wt Readings from Last 5 Encounters: 03/25/25 78.9 kg (174 lb) 03/16/25 81.6 kg (stated) Significant Weight Change: -2.7 kg (-3.3% in a week) if stated weight on admit accurate Diet prior to assessment:: Oral nutrition supplements Boost Plus; Boost Plus Vanilla 3 times daily with meals Diet NPO Adult TPN @ 50 ml/hr providing 1209 kcal, 50 gm protein Recent intake: 75-100% of CLD on 03/24 and FLD on 03/25 Current intake likely meets estimated needs. Barriers to adequate nutrition intake: frequent NPO status for OR/procedures , GI s/s Patient/family comments:pt reports she was doing well on the FLD. Loved the cream of wheat. Did not yet try the boost. In the fridge and was planning on trying today, but then told she is NPO for a procedure. Difficulty Chewing or Swallowing: no issues noted. Skin Integrity: surgical wound(s) at abdomen GI Function (per nursing flowsheet): Abdomen Inspection: Ostomy, Surgical scar Bowel Sounds (All Quadrants): Active Last BM Date: 03/25/25 Passing Flatus: Yes GI Symptoms: None Fluid Status: WNL Labs: Recent Labs 03/24/25 0418 03/24/25 1604 03/25/25 0456 03/26/25 0413 NA 135 -- 134* 133* K 3.9 4.2 4.3 4.5 BICARB 26 -- 23 23 CL 101 -- 103 101 GLUCOSE 110* -- 106* 108* BUN 5* -- 6* 9 CREATININE 0.48 -- 0.45 0.47 CALCIUM 8.5 -- 8.6 8.4 MG 1.8 1.8 -- 1.9 1.9 1.9 1.9 PHOS 2.7 -- -- 3.0 KAYLEY 4.8 -- -- -- Lab Results Component Value Date ALBUMIN 2.8 (L) 03/24/2025 PREALBUMIN 8.1 (L) 03/24/2025 No results found for: B12, FOLATE, VITD, IRON, FERRITIN, ZINC Recent Labs 03/24/25 2327 03/25/25 0232 03/25/25 0328 03/25/25 1058 03/25/25 1507 03/25/25 1824 03/25/25 2207 03/26/25 0223 03/26/25 0618 03/26/25 1003 POCGLU 103* 113* 108* 99 97 107* 138* 95 103* 83 Lab Results Component Value Date HGBA1C 5.6 03/18/2025 Scheduled Meds: aspirin 81 mg Oral Daily atorvastatin 40 mg Oral Nightly enoxaparin (LOVENOX) injection 40 mg Subcutaneous Daily insulin lispro 0-30 Units Subcutaneous Q4H [facility] metoprolol tartrate 50 mg Oral BID piperacillin-tazobactam (ZOSYN) extended infusion 3.375 g Intravenous Q8H sodium chloride (PF) 10 mL Intracatheter Q8H [facility] Continuous Infusions: Adult TPN 50 mL/hr at 03/25/25 2140 Adult TPN dextrose lactated Ringers 75 mL/hr (03/26/25 1054) Estimated Energy Needs Total Energy Estimated Needs: 4375-3297 kcal Method for Estimating Needs: 25-30 kcal/kg IBW BMI 22 (69.5 kg) Total Protein Estimated Needs: 83-104 gm Method for Estimating Needs: 1.2-1.5 gm/kg IBW BMI 22 Fluid Needs Total Fluid Estimated Needs: 3183-5095 ml Method for Estimating Needs: ~1 ml/kcal Kate Cedillo RD, LD, CNSC Nutrition Support Team Daily Progress Note Pertinent clinical information: NPO for IR procedure today, drain placement vs aspiration of abscess. Previously on FLD. Colostomy: 210ml. Plan to continue decreased TPN at this time per discussion w/ Dr. Bryant. Current weight: 78.9 kg (174 lb) (03/25) Wt change since admit: -2.7kg (81.6kg) Current TPN prescription: Component Order Dose Admin Dose parenteral amino acid 15% no.6 15 % Solp 50 g/day 49.95 g dextrose 70% Solp 150 g/day 149.8 g fat emulsion (SMOFLIPID) 20 % Emul 50 g/day 250 mL sterile water Solp 297.05 mL/day 297.05 mL sodium chloride (CONC 23.4%) 4 mEq/mL Soln 120 mEq 120 mEq sodium phosphate 3 mmol/mL Soln 15 mmol 15 mmol potassium acetate 2 mEq/mL Soln 80 mEq 80 mEq calcium gluconate 100 mg/mL (10%) Soln 8 mEq 1.7 g magnesium sulfate 500 mg/mL (50 %) Soln 8 mEq 7.917 mEq mvi, adult no.4 with vit K 3,300 unit- 150 mcg/10 mL Soln 10 mL 10 mL trace elements Zn-Cu-Mn-Se 3 mg-0.3 mg-55 mcg-60 mcg/mL Soln 1 mL 1 mL thiamine 100 mg/mL Soln 100 mg 100 mg TPN at 50ml/hr provides 1209kcal and 50g protein. MIVF: LR @ 75ml/hr Pertinent labs: Recent Labs 03/24/25 0418 03/24/25 1604 03/25/25 0456 03/26/25 0413 NA 135 -- 134* 133* K 3.9 4.2 4.3 4.5 BICARB 26 -- 23 23 CL 101 -- 103 101 GLUCOSE 110* -- 106* 108* BUN 5* -- 6* 9 CREATININE 0.48 -- 0.45 0.47 MG 1.8 1.8 -- 1.9 1.9 1.9 1.9 PHOS 2.7 -- -- 3.0 KAYLEY 4.8 -- -- -- TRIG 137 -- -- -- FSB-152, 12 units corrective insulin within the past 24h TPN Changes: -No change to current rx. Assessed by: Lexus Finney RD, LD, CNSC CLINIC SURGERY PROGRESS NOTE Patient Name: Jose Lind ASSESSMENT AND PLAN Jose Lind is a 59 y.o. female with history of former smoker, s/p breast reduction, colon polyps, diverticulitis who [facility] with worsening abdominal pain for a week. OSH CTAP: acute sigmoid diverticulitis with kay perforation and pelvic phlegmon, measuring 9.5 x 3.5cm Perforated Diverticulitis - S/p ex-lap with diverting sigmoid colostomy and abdominal washout on 03/16 - Ostomy w/ stool after ostomy katlin removal 03/23 - ET following, appreciate their assistance - NPO this am - Cardiology planning on heart cath, please hold for now as needs possible perc drain - Cont zosyn - PT/OT/CM for dispo - Ok to wean TPN pending IR findings - Rescan today w/ continued pelvic fluid, pt with worse pain this am, will ask IR to reeval for drainage Madi Bryant DO General Surgery Please contact surgical international project engineer professional caster 5PM-6AM and weekends - #[phone] SUBJECTIVE NAEO. Increased pelvic pain this am. CT w/ residual abscess. Discussed need for IR aspiration today. Ostomy functioning. Review of Systems: All systems were reviewed and otherwise negative except for as noted above PHYSICAL EXAM VITALS BP 99/75 (BP Location: Left arm, Patient Position: Lying) Pulse 75 Temp 99.4 F (37.4 C) (Oral) Resp 16 Ht 5' 10 Wt 78.9 kg (174 lb) SpO2 93% BMI 24.97 kg/m PHYSICAL EXAM General: Awake and alert, no acute distress Head: Normocephalic Eyes: EOM grossly intact Neck: Trachea midline Cardiovascular: Hemodynamically stable Pulmonary: Nonlabored breathing Extremities: No obvious deformities, warm and well perfused Skin: Dry and intact, no obvious rash Neurological: No gross focal deficits, answering questions appropriately GI: Abd soft, b/l lower abd TTP, ostomy with pink mucosa w/ stool o/p, C/D/I dressing, IMAGING Recent diagnostic imaging/reports reviewed. Pertinent findings may be listed above. Please correlate with formal radiology reads. LABS Laboratory studies ordered and reviewed. Pertinent findings may be listed below: Hgb: 11.3 03/26/25 WBC: 13.42 03/26/25 Plts: 400 03/26/25 Na: 133 03/26/25 K: 4.5 03/26/25 Cr: 0.47 03/26/25 INR: - - 03/26/25 UA obtained: pending 03/26/25 WOC/ET RN consult/evaluation note: Jose Lind seen s/p ex-lap with diverting sigmoid colostomy and abdominal washout on 03/16. Description of visit: pouch change and lesson accompanied by her . Pt attentive but still hesitant to participate. Pouch/Products used today: -Coloplast [id number] and [place] medium convex oval ring [id number]. Pouch cut to skin, wound treated with powder and barrier film Last pouch changed: 03/25/25 Recommendation and/or education: -Discussed basic A&P, stoma appearance, and expected function of the stoma -we discussed ADLs including, showering/bathing, swimming and clothing -we explained how to obtain supplies, and when to call MD vs. ET RN, etc. -ostomy clinic and office information provided. -patient was given ostomy supplies and written teaching information. -we covered peristomal skin care, timing and frequency of ostomy pouch change and emptying. -pouch change instructions included; removing the pouch, best practice for cleansing the peristomal skin, we demonstrated how to measure stoma, how to cut the pouch and if additional accessories are needed -answered all questions to patient satisfaction. -we will continue to follow for further education -arranged to meet with pt and on 03/27 at 1600 Ostomy documentation: 03/25/25 1715 Colostomy RLQ Descending/sigmoid Placement Date/Time: 03/16/251818 Location: RLQ Surgery Date: 03/16/25 Colostomy Type: Descending/sigmoid Stoma Shape Oval Stoma Size (mm) (30x48) Stoma Appearance Red;Retracted;Moist Peristomal Assessment Denuded;Painful;Mucocutaneous separation Stoma Functioning Yes Flatus Present Yes Stool Present Yes Treatment Cleansed;Skin sealant/skin barrier prep;Stoma powder applied;Barrier ring applied Stomal Appliance 1 piece appliance;Changed;Convex (with medium oval convex ring) Effluent Appearance Pasty;Liquid Output (mL) 50 mL RN updated If pouch fails please call ET RN for assistance so we can educate them about changing the pouch. If after hours please apply a new pouch and alert ET RN, via secure chat or call our office and leave a message the pouch failed. Verbal consent obtained for any photographs uploaded to patient's chart. Please note that Wound/Ostomy Team is not available on weekends and holidays. [facility] PHYSICAL THERAPY TREATMENT NOTE Anticipate discharge from acute PT services. Will discuss with supervising PT. Skilled Therapy Needs After Discharge Anticipate Resolution of Current Assessment Limitations Including: Pain Are deputy brand inspector Therapy Services Needed After Discharge: No PT DME Recommendation: Tub seat PT DME Rationale: Patient's condition creates an increased risk of safety hazard without recommended equipment Rehab Potential: Good Outcomes Measures Prior Function - Basic Mobility Raw Score: 24 Points Prior Function - Basic Mobility % Impaired: 0% AM-PAC Basic Mobility Raw Score: 23 Points AM-PAC Basic Mobility % Impaired: 16.55% Activity Tolerance Activity Tolerance: Endurance does not limit participation in activity Therapy Precautions General Rehab Precautions: Abdominal Balance Sitting Balance - Static: Independent Sitting Balance - Dynamic: Independent Standing Balance - Static: Independent Standing Balance - Dynamic: Modified independent Bed Mobility Supine to Sit: Independent, Head of bed elevated Sit to Supine: Independent, Head of bed elevated Technology Architect: bedrails, bed positioning mechanics Skilled Intervention Provided: verbal cues, monitoring patient response with activity, patient education, provided step by step instructions For: efficient movement, initiation of task, sequencing of movement, logroll technique, necessary precautions Resulting in: improved safety, improved performance, improved awareness Transfers Sit to Stand: Independent Skilled Intervention Provided: verbal cues, monitoring patient response with activity, patient education For: efficient movement, initiation of task, sequencing of movement Resulting in: improved safety, improved performance, improved awareness Gait/Locomotion Gait Assistance: Independent Distance: 70 Feet Rest Breaks: Yes Rest Break Position: standing Additional Gait Trial 2: Yes Gait Assistance Trial 2: Independent Distance Trial 2: 330 Rest Breaks Trial 2: Yes Rest Break Position Trial 2: seated Pattern: step through, decreased arm swing, L decreased step length, R decreased step length, decreased arpan (steps per minute) Skilled Intervention Provided: verbal cues, monitoring patient response with activity, patient education For: efficient movement, initiation of task, self-monitoring during activity Resulting in: improved performance, improved safety, improved efficiency Additional Treatment Details Reviewed abdominal precautions and patient verbalized understanding. Home Living Obtained Home Living and PLOF info from: Patient Lives With: Spouse Type of Home: House Home Layout: One level Steps to enter home: No Bathroom Shower/Tub: Walk-in shower Bathroom Toilet: Standard Prior Level of Function Receives Help From: Spouse, Friend(s) (friend who is home health aid planning to assist with ostomy management) Level of [place] - Transfers/Ambulation/Mobility: Independent with functional transfers, Independent with household ambulation, Independent with community ambulation Level of [place] - ADLs: Independent Level of [place] - Homemaking: Independent Driving: Patient drives 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 This note stands as the current Discharge Summary upon patient discharge from the hospital or completion of Physical Therapy Plan of Care. Cosigned by Ama Eng PT at 03/25/2025 3:13 PM EDT Associated attestation - Ama Eng PT - 03/25/2025 3:13 PM EDT PHYSICAL THERAPY DISCHARGE NOTE Patient has achieved PT Plan of Care. No further acute PT needs identified at this time. No PT follow up required at discharge. Will d/c from PT services. CLINIC SURGERY PROGRESS NOTE Patient Name: Jose Lind ASSESSMENT AND PLAN Jose Lind is a 59 y.o. female with history of former smoker, s/p breast reduction, colon polyps, diverticulitis who [facility] with worsening abdominal pain for a week. OSH CTAP: acute sigmoid diverticulitis with kay perforation and pelvic phlegmon, measuring 9.5 x 3.5cm Perforated Diverticulitis - S/p ex-lap with diverting sigmoid colostomy and abdominal washout on 03/16 - Ostomy w/ stool after ostomy katlin removal 03/23 - ET following, appreciate their assistance - Adv to FLD - Cardiology planning on heart cath, please hold for now as needs possible perc drain - Cont zosyn - PT/OT/CM for dispo - Ok to wean TPN 03/26 if pt tolerating FLD - Interval rescan tomorrow to assess pelvic fluid collection Madi Bryant DO General Surgery Please contact surgical international project engineer professional caster 5PM-6AM and weekends - #[phone] SUBJECTIVE NAEO. Seems to be improving every day. Still w/ some pelvic discomfort. Ostomy working, tolerated clears. Review of Systems: All systems were reviewed and otherwise negative except for as noted above PHYSICAL EXAM VITALS BP 90/65 (BP Location: Left arm, Patient Position: Lying) Pulse 65 Temp 98.2 F (36.8 C) (Oral) Resp (!) 28 Ht 5' 10 Wt 78.9 kg (174 lb) SpO2 98% BMI 24.97 kg/m PHYSICAL EXAM General: Awake and alert, no acute distress Head: Normocephalic Eyes: EOM grossly intact Neck: Trachea midline Cardiovascular: Hemodynamically stable Pulmonary: Nonlabored breathing Extremities: No obvious deformities, warm and well perfused Skin: Dry and intact, no obvious rash Neurological: No gross focal deficits, answering questions appropriately GI: Abd soft, b/l lower abd TTP, ostomy with pink mucosa w/ stool o/p, C/D/I dressing, IMAGING Recent diagnostic imaging/reports reviewed. Pertinent findings may be listed above. Please correlate with formal radiology reads. LABS Laboratory studies ordered and reviewed. Pertinent findings may be listed below: Hgb: 11.5 03/25/25 WBC: 11.06 03/25/25 Plts: 385 03/25/25 Na: 134 03/25/25 K: 4.3 03/25/25 Cr: 0.45 03/25/25 INR: - - 03/25/25 UA obtained: pending 03/25/25 [facility] Inpatient Progress Note 03/25/2025 Jose Lind 1965 [id number] Assessment/Plan: Jose Lind is a 59 y.o. female with a history of diverticulosis who presented to [place] ED for abdominal pain, distention found to have perforated diverticulitis. [facility] for general surgery evaluation. S/p ex-lap with bowel resection and ostomy 03/16/25 (Dr. Carrillo, ). Hospital course complicated by post-op ileus, intermittent tachycardia, and abnormal stress test. Diverticulitis with Perforation: With acute onset of abdominal pain 03/15/2025. CTAP 03/16/2025 showed acute sigmoid diverticulitis with perforation, pelvic phlegmon. S/p ex-lap with bowel resection and ostomy 03/16/25 (Dr. Carrillo, ). Repeat CTAP 03/22/2025 showed developing abscesses in the pelvis. IR unable to place drain. Restarted on Zosyn. General Surgery following, planning interval CT; continued TPN until PO can be advanced. Intermittent Tachycardia: likely multifactorial from pain, stress, electrolyte disturbance, infection, possible ischemic component. With HR up to 130-140's intermittently. Multiple EKGs have shown SVT, atrial tachycardia, sinus tachycardia, PVCs. TTE 03/19/25 EF 43%, global hypokinesis. Cardiology initiated BB. Abnormal stress test: PET stress 03/20/25 significantly abnormal and suggestive of LAD disease. 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 Cardiology followed, recommend OP follow up for evaluation of LHC. Postoperative Ileus: KUB 03/17/25 with possible postoperative ileus vs low grade partial SBO. Patient without flatulence. NG tube placed on 03/18/25. Remains NPO. TPN started 03/23/2025. Surgery managing. Incidental pulmonary nodule: CCTA with sub centimeter LLL nodule, recommend re-imaging in 12mo as OP. Code status: Full DVT Prophylaxis: Lovenox Current living situation: Home Expected Disposition: likely home, therapy consulted Estimated discharge date: TBD Medically Ready for Discharge: no - pending ileus and heart cath Subjective: Patient seen and examined this morning, resting in bed. Reports doing okay at present. No dyspnea, chest pain. Notes some lower abdominal tenderness this morning, otherwise no nausea or vomiting. Has had gas in her ostomy, some liquid output. Was on IV Lopressor, discussed with pharmacist - patient had CCTA this AM and we discussed utilizing PO Lopressor for this study in addition to IV. Cardiology following; discussed with Cardio resident 03/25/2025, recommends OP follow up - no plans for LHC this admit. AM Cr 0.45, K 4.3, Na 134. Discussed with CONTRACT SERVICEMAN, patient is not medically ready. Requiring TPN, needs close monitoring. Continued IV Zosyn, GS following. Physical Exam: BP 104/71 (BP Location: Left arm, Patient Position: Lying) Pulse 68 Temp 98.4 F (36.9 C) (Oral) Resp 18 Ht 5' 10 Wt 78.9 kg (174 lb) SpO2 94% BMI 24.97 kg/m General: NAD Eyes: EOMI, sclera clear ENT: neck supple Cardiovascular: Regular rate, no murmur Respiratory: Clear to auscultation, symmetric air entry Gastrointestinal: Soft, non distended, positive bowel sounds. Midline incision with nichol, mild postop erythema but no purulent drainage. Ostomy in place. Genitourinary: no CVA tenderness Musculoskeletal: no major joint deformity Skin: warm, dry, no LE edema Neuro: Alert, oriented x3, no focal motor deficits Psych: Mood appropriate Current Medications: enoxaparin (LOVENOX) injection 40 mg Subcutaneous Daily insulin lispro 0-30 Units Subcutaneous Q4H VIGNESH metoprolol tartrate 50 mg Oral BID piperacillin-tazobactam (ZOSYN) extended infusion 3.375 g Intravenous Q8H sodium chloride (PF) 10 mL Intracatheter Q8H [facility] Labs, Imaging and Studies reviewed: Results from last 7 days Lab Units 03/25/25 0456 03/24/258 03/23/25 0424 WBC K/mcL 11.06* 8.11 9.65 HGB g/dL 11.5* 11.7* 12.4 HCT % 35.1* 37.2 39.6 PLT K/mcL 385 393 464* Results from last 7 days Lab Units 03/25/25 0456 03/24/25 1604 03/24/25 0418 03/23/25 0424 03/21/25 0912 03/19/25 0658 SODIUM mmol/L 134* -- 135 135 < > 138 POTASSIUM mmol/L 4.3 4.2 3.9 3.6 < > 3.6 CHLORIDE mmol/L 103 -- 101 100 < > 103 BICARB mmol/L 23 -- 26 27 < > 25 BUN mg/dL 6* -- 5* 3* < > 9 CREATININE mg/dL 0.45 -- 0.48 0.51 < > 0.47 EGFR mL/min/1.73 m2 110 -- 109 107 < > 109 GLUCOSE mg/dL 106* -- 110* 99 < > 131* CALCIUM mg/dL 8.6 -- 8.5 8.6 < > 8.4 PHOSPHORUS mg/dL -- -- 2.7 3.6 -- 2.7 < > = values in this interval not displayed. Results from last 7 days Lab Units 03/24/25 0418 03/19/25 0658 ALT U/L 9 10 AST U/L 21 12 ALK PHOS U/L 76 61 BILIRUBIN TOTAL mg/dL 0.8 0.5 Nutrition Support Team Daily Progress Note TPN Changes/Notes to patient care team: -Reduce TPN: 50g AA, 150g Dextrose, 50g SMOF @50 mL/hr to provide 1210 kcals and 50g Prot Pertinent clinical issues: Diet advanced to FLD this am with ONS 3x daily. 675 mL/colostomy Current weight: 78.9kg Wt change since admit: -2.7kg (81.6kg) Current TPN prescription: TPN rate: 75 mL/hr TPN provides: 1784 kcals and 100g Prot Component Order Dose Admin Dose parenteral amino acid 15% no.6 15 % Solp 100 g/day 100.05 g dextrose 70% Solp 260 g/day 259.7 g fat emulsion (SMOFLIPID) 20 % Emul 50 g/day 250 mL sterile water Solp 406.05 mL/day 406.05 mL sodium chloride (CONC 23.4%) 4 mEq/mL Soln 120 mEq 120 mEq sodium phosphate 3 mmol/mL Soln 15 mmol 15 mmol potassium acetate 2 mEq/mL Soln 80 mEq 80 mEq calcium gluconate 100 mg/mL (10%) Soln 8 mEq 1.7 g magnesium sulfate 500 mg/mL (50 %) Soln 8 mEq 7.917 mEq mvi, adult no.4 with vit K 3,300 unit- 150 mcg/10 mL Soln 10 mL 10 mL trace elements Zn-Cu-Mn-Se 3 mg-0.3 mg-55 mcg-60 mcg/mL Soln 1 mL 1 mL thiamine 100 mg/mL Soln 100 mg 100 mg MIVF: LR @50 mL/hr Pertinent labs: Recent Labs 03/23/25 0424 03/24/25 0418 03/24/25 1604 03/25/25 0456 NA 135 135 -- 134* K 3.6 3.9 4.2 4.3 BICARB 27 26 -- 23 CL 100 101 -- 103 GLUCOSE 99 110* -- 106* BUN 3* 5* -- 6* CREATININE 0.51 0.48 -- 0.45 KAYLEY -- 4.8 -- -- MG 2.2 1.8 1.8 -- 1.9 1.9 PHOS 3.6 2.7 -- -- POC B-116 0 units corrective insulin within the past 24h Estimated Energy Needs Total Energy Estimated Needs: 9773-6805 kcal Method for Estimating Needs: 25-30 kcal/kg IBW BMI 22 (69.5 kg) Total Protein Estimated Needs: 83-104 gm Method for Estimating Needs: 1.2-1.5 gm/kg IBW BMI 22 Fluid Needs Total Fluid Estimated Needs: 3818-9868 ml Method for Estimating Needs: ~1 ml/kcal Princess Isabel RD, LD, [facility] 03/25/2025 7:28 am - This RN will continue to follow for discharge planning. Per consult, the pt will need home health for new colostomy management, and the pt will not discharge with TPN. [facility] preference for [facility] care is [facility]. However, [facility] does not service the area. Referral sent to alternate agencies. Barriers to finding a [facility] agency: Insurance not widely accepted/pt location. If [facility] and [facility] decline then all home care options will have been exhausted and the pt will need an alternate plane at discharge. Inpatient social media coordinator notified. Addendum 10:31 am - Call placed to [facility] and they have to decline d/t they do not take new ostomies. VM left for [facility] requesting a call back to verify if they can accept the referral. Addendum 10:54 am- Call back from [facility] and they are not able to accept d/t pt insurance. Inpatient social media coordinator notified all home care options have been exhausted at this time. Name of [facility] agency: Pending / Accepted (if [facility], include region) No accepting agencies in pt area. Referrals sent to: (names of agencies) [facility]ined [facility]- Out of network [facility]- Can't accommodate ostomy [facility]- Out of services area. [facility]- out of service area [facility] (orders) created for the following services: [or waiting for ____ (i.e wound care)] Yes- SN Verify demographics (residential address) [id number] [facility] [address] What is the primary number to reach you? [phone] Following physician will be: (list first name/last name) Lavinia Carrillo MD Do you have a caregiver and/or teachable caregiver (list relationship, name & phone #)? Significant Other Estimated Discharge Date (KATIANA): 03/24 If discharge needs change, please reach out to liaison assigned on treatment team as hub is not notified of new consults once team is following. Thank you. Care Management Progress Note Date: 03/24/2025 Time: 12:06 PM Patient Name: Jose Lind Date of : 1965 Discharge Plan: D/C Disposition: Home Health Care Services Related to Current Admission?: Yes Final D/C Agency/Destination: (TBD) Options Reviewed: Explained services/benefits Reason for Choice: Patient/Family preference Discharging Transportation Plan: Transportation Type: Auto Discharge Plan Status: Care management following. Chart reviewed. Per chart review and completed PT/OT evaluations, therapy has no recommendations for additional therapy upon discharge. [facility] 18. DME recs include tub seat. Pt had new colostomy placed during current admission and Surg/Onc working towards advancing diet as tolerated and discontinuing TPN prior to discharge: diet advanced to CLD as of this morning. HYDROELECTRIC PLANT ELECTRICIAN met with pt at bedside to further discuss disposition and introduced [facility] LOC for SN. Pt agreeable to LOC for SN for colostomy management and has no preference on an agency for services. [facility] consulted: referrals pending SN. HYDROELECTRIC PLANT ELECTRICIAN to update all parties once agency acceptance is confirmed. Will continue to follow and provide assistance as needed. CLINIC SURGERY PROGRESS NOTE Patient Name: Jose Lind ASSESSMENT AND PLAN Jose iLnd is a 59 y.o. female with history of former smoker, s/p breast reduction, colon polyps, diverticulitis who [facility] with worsening abdominal pain for a week. OSH CTAP: acute sigmoid diverticulitis with kay perforation and pelvic phlegmon, measuring 9.5 x 3.5cm Perforated Diverticulitis - S/p ex-lap with diverting sigmoid colostomy and abdominal washout on 03/16 - Ostomy w/ stool after ostomy katlin removal 03/23 - ET following, appreciate their assistance - DC NGT - Start CLD - Cardiology planning on heart cath, please hold for now as needs possible perc drain and ostomy has not had output yet - IR c/s, unable to access pelvic fluid collection - Restart zosyn - PT/OT/CM for dispo - Continue TPN till diet can be advanced - Interval rescan at end of week Madi Bryant, DO General Surgery Please contact surgical international project engineer professional caster 5PM-6AM and weekends - #[phone] SUBJECTIVE NAEO. Ostomy w/ robust output after katlin removal 03/23. NGT output slowing. NGT removed at bedside. Review of Systems: All systems were reviewed and otherwise negative except for as noted above PHYSICAL EXAM VITALS BP 109/82 (BP Location: Left arm, Patient Position: Lying) Pulse 72 Temp 98.2 F (36.8 C) (Oral) Resp 15 Ht 5' 10 Wt 79.9 kg (176 lb 1.6 oz) SpO2 95% BMI 25.27 kg/m PHYSICAL EXAM General: Awake and alert, no acute distress Head: Normocephalic Eyes: EOM grossly intact Neck: Trachea midline Cardiovascular: Hemodynamically stable Pulmonary: Nonlabored breathing Extremities: No obvious deformities, warm and well perfused Skin: Dry and intact, no obvious rash Neurological: No gross focal deficits, answering questions appropriately GI: Abd soft, appropriately tender, tympany on percussion, ostomy with pink mucosa w/ stool o/p, C/D/I dressing, IMAGING Recent diagnostic imaging/reports reviewed. Pertinent findings may be listed above. Please correlate with formal radiology reads. LABS Laboratory studies ordered and reviewed. Pertinent findings may be listed below: Hgb: 11.7 03/24/25 WBC: 8.11 03/24/25 Plts: 393 03/24/25 Na: 135 03/24/25 K: 3.9 03/24/25 Cr: 0.48 03/24/25 INR: - - 03/24/25 UA obtained: pending 03/24/25 Nutrition Support Team Daily Progress Note TPN Changes/Notes to patient care team: -Increase TPN to goal: 100g AA, 260g Dextrose, 50g SMOF lipids @75 mL/hr to provide 1784 kcals and 100g Prot -Increase to 15 mM NaPO4 -Increase to 120 mEq NaCl -Increase to 80 mEq K Acetate Pertinent clinical issues: NGT removed and diet advanced to CLD this am. Pt with developing abscess in pelvis. IR unable to place drain. 400 mL/colostomy Current weight: 79.9kg Wt change since admit: -1.7kg (81.6kg) Current TPN prescription: TPN rate: 50 mL/hr TPN provides: 1210 kcals and 50g Prot Component Order Dose Admin Dose parenteral amino acid 15% no.6 15 % Solp 50 g/day 49.95 g dextrose 70% Solp 150 g/day 149.8 g fat emulsion (SMOFLIPID) 20 % Emul 50 g/day 250 mL sterile water Solp 321.31 mL/day 321.31 mL sodium chloride (CONC 23.4%) 4 mEq/mL Soln 80 mEq 80 mEq sodium phosphate 3 mmol/mL Soln 5 mmol 5.1 mmol potassium acetate 2 mEq/mL Soln 60 mEq 60 mEq calcium gluconate 100 mg/mL (10%) Soln 8 mEq 1.7 g magnesium sulfate 500 mg/mL (50 %) Soln 4 mEq 4 mEq mvi, adult no.4 with vit K 3,300 unit- 150 mcg/10 mL Soln 10 mL 10 mL trace elements Zn-Cu-Mn-Se 3 mg-0.3 mg-55 mcg-60 mcg/mL Soln 1 mL 1 mL thiamine 100 mg/mL Soln 100 mg 100 mg MIVF: LR @75 mL/hr Pertinent labs: Recent Labs 03/22/25 0414 03/23/25 0424 03/24/25 0418 NA 135 135 135 K 3.4* 3.6 3.9 BICARB 26 27 26 CL 101 100 101 GLUCOSE 103* 99 110* BUN 3* 3* 5* CREATININE 0.47 0.51 0.48 KAYLEY -- -- 4.8 MG 1.8 2.2 1.8 1.8 PHOS -- 3.6 2.7 POC B-114 0 units corrective insulin within the past 24h Estimated Energy Needs Total Energy Estimated Needs: 4320-4840 kcal Method for Estimating Needs: 25-30 kcal/kg IBW BMI 22 (69.5 kg) Total Protein Estimated Needs: 83-104 gm Method for Estimating Needs: 1.2-1.5 gm/kg IBW BMI 22 Fluid Needs Total Fluid Estimated Needs: 7807-9661 ml Method for Estimating Needs: ~1 ml/kcal Princess Isabel RD, LD, CNSC [facility] Inpatient Progress Note 03/24/2025 Jose Lind 1965 [id number] Assessment/Plan: Jose Lind is a 59 y.o. female with a history of diverticulosis who presented to [place] ED for abdominal pain, distention found to have perforated diverticulitis. [facility] for general surgery evaluation s/p ex-lap with bowel resection and ostomy 03/16/[address] Carrillo. Course complicated by post-op ileus, intermittent tachycardia, and abnormal stress test. Diverticulitis with Perforation: With acute onset of abdominal pain 03/15/25. CTAP 03/16/2025 showed acute sigmoid diverticulitis with perforation, pelvic phlegmon. S/p ex-lap with bowel resection and ostomy 03/16/[address] Carrillo (general surgery). Repeat CTAP 03/22/2025 showed developing abscesses in the pelvis. IR unable to place drain. Restarted on Zosyn. General surgery planning interval CT scan later in week. Intermittent Tachycardia: likely multifactorial from pain, stress, electrolyte disturbance, infection, possible ischemic component. HR up to 130-140's intermittently. Multiple EKGs have shown SVT, atrial tachycardia, sinus tachycardia, PVCs. TTE 03/19/25 EF 43%, global hypokinesis. Cardiology initiated BB. Abnormal stress test: PET stress 03/20/25 significantly abnormal and suggestive of LAD disease. Cardiology planning LHC while inpatient, likely week of 03/23/25. Monitor on tele. MACE/MINS monitoring: POD#1 trop 15, POD#2 Trop 15. No baseline obtained prior to surgery. Patient without chest pain or SOB. Cardiac work-up as above. Postoperative Ileus: KUB 03/17/25 with possible postoperative ileus vs low grade partial SBO. Patient without flatulence. NG tube placed on 03/18/25. Remains NPO. TPN started 03/23/2025. Surgery managing. Code status: Full DVT Prophylaxis: Lovenox Current living situation: Home Expected Disposition: likely home, therapy consulted Estimated discharge date: TBD Medically Ready for Discharge: no - pending ileus and heart cath Subjective: Patient resting comfortably this morning, no overnight events. Vital trends and labs stable this morning. IR reviewed imaging yesterday and unable to place a drain. She is continued on IV Zosyn and imagine there will be an interval CT scan ordered later this week to reevaluate size of fluid collection. NG tube removed on a clear liquid diet. TPN and diet advancement per surgery. Patient has IV Dilaudid available as needed which is being used occasionally. Physical Exam: BP 109/82 (BP Location: Left arm, Patient Position: Lying) Pulse 63 Temp 98.2 F (36.8 C) (Oral) Resp 16 Ht 5' 10 Wt 79.9 kg (176 lb 1.6 oz) SpO2 92% BMI 25.27 kg/m General: NAD Eyes: conjugate gaze, sclera clear, +NG ENT: neck supple Cardiovascular: Regular rate. Respiratory: Clear to auscultation, symmetric air entry. Gastrointestinal: mild TTP. Mild distention. Hypoactive BS. Colostomy in place. Genitourinary: no CVA tenderness Musculoskeletal: no major joint deformity Skin: warm, dry, no LE edema Neuro: Alert, oriented x3, no focal motor deficits Psych: Mood appropriate Current Medications: enoxaparin (LOVENOX) injection 40 mg Subcutaneous Daily insulin lispro 0-30 Units Subcutaneous Q4H VIGNESH magnesium sulfate IVPB/IV replacement 2 g Intravenous Once metoprolol 10 mg Intravenous Q6H VIGNESH piperacillin-tazobactam (ZOSYN) extended infusion 3.375 g Intravenous Q8H potassium chloride 20 mEq Intravenous Once sodium chloride (PF) 10 mL Intracatheter Q8H [facility] Labs, Imaging and Studies reviewed: Results from last 7 days Lab Units 03/24/2541703/23/2542303/22/25 0414 WBC K/mcL 8.11 9.65 10.01 HGB g/dL 11.7* 12.4 11.3* HCT % 37.2 39.6 34.1* PLT K/mcL 393 464* 415* Results from last 7 days Lab Units 03/24/258 03/23/25 0424 03/22/25 0414 03/21/25 0912 03/19/25 0658 SODIUM mmol/L 135 135 135 < > 138 POTASSIUM mmol/L 3.9 3.6 3.4* < > 3.6 CHLORIDE mmol/L 101 100 101 < > 103 BICARB mmol/L 26 27 26 < > 25 BUN mg/dL 5* 3* 3* < > 9 CREATININE mg/dL 0.48 0.51 0.47 < > 0.47 EGFR mL/min/1.73 m2 109 107 109 < > 109 GLUCOSE mg/dL 110* 99 103* < > 131* CALCIUM mg/dL 8.5 8.6 8.1* < > 8.4 PHOSPHORUS mg/dL 2.7 3.6 -- -- 2.7 < > = values in this interval not displayed. Results from last 7 days Lab Units 03/24/25 0418 03/19/25 0658 03/18/25 0251 ALT U/L 9 10 13 AST U/L 21 12 11 ALK PHOS U/L 76 61 66 BILIRUBIN TOTAL mg/dL 0.8 0.5 0.6 Resident Progress Note Patient Name: Jose Lind : 1965 Admit Date: [id number] Assessment and Plan 59 y.o. female with a past medical history of diverticulosis, former smoker with 20 pack years who [facility] as a transfer for general surgery evaluation, found to have perforated diverticulitis with pelvic phlegmon, s/p ex-lap with diverting sigmoid colostomy and abdominal washout. Cardiology was consulted 03/18 for intermittent tachycardia post-operatively and elevated troponin. PET stress 03/20 abnormal, cardiac MRI viability study 03/23 consistent with NICM. Plan for CCTA 03/25, possible LHC pending results. Elevated troponin Suspected CAD - Troponin trend post-op 03/17 15-> 15 - PET Stress 03/20/25 - abnormal, medium to large sized predominately fixed mid to apical anterior, apical septal and mid anteroseptal defect with abnormal wall motion consistent with either infarction or resting ischemia. Findings of normal resting and stress myocardial blood flow within the perfusion defect suggest findings reflect resting ischemia rather than infarction. - Cardiac MRI viability study 03/23 c/w NICM. Late gadolinium imaging demonstrates patchy mid myocardial enhancement in the basal septum and mid inferior RV insertion site. No evidence of infarct or myocardial infiltrate. -- Initial plan for LHC, however after further review of stress testing and discussion with patient (who would like to avoid another invasive procedure if able), will plan to obtain CCTA tomorrow. If this shows a lesion that warrants intervention, timing of LHC will have to await surgery clearance - surgery planning for interval re-scan for intraperitoneal fluid collections at end of week. Paroxysmal tachycardia - Suspected to be driven by sympathetic overactivity from surgery/pain/stress/infection as well as electrolyte imbalances in the post-op setting - Multiple EKGs obtained showing varying rhtyhms: SVT, atrial tachycardia, sinus tachycardia, and sinus with PVC's -- Was placed on IV lopressor (due to NPO) 5mg q6h, increased to 7.5mg q6h on 03/22. Increased to 10mg q6h 03/24. Goal K > 4, Mg < 2 HFmrEF - Suspect due to ischemic cardiomyopathy. Biatrial enlargement does suggest possible occult longstanding Afib - TTE 03/19/25 with EF 43%, grade 1 diastolic dysfunction. Bi-atrial enlargement. - PET Stress 03/20/25 with EF 30% -- Will add in GDMT as clinical course and PO status allows. All care and management plans will be discussed with the attending on service. Please see attending attestation for final recommendations. Des Kauffman DO 7:50 AM 03/24/25 Subjective [facility] telemetry reviewed. NSR with occasional PVC's. NAEO. Patient seen and examined at bedside. Denies any chest pain, SOB. Discussed pursuing a coronary angiography study to potentially avoid a heart catheterization and patient would like to go this route. She is understanding that if a lesion is found that warrants intervention, she may still have to undergo heart cath. Physical Exam Vital Signs: BP 111/66 (BP Location: Left arm, Patient Position: Lying) Pulse 68 Temp 98.4 F (36.9 C) (Oral) Resp (!) 22 Ht 5' 10 Wt 79.9 kg (176 lb 1.6 oz) SpO2 93% BMI 25.27 kg/m General: age appropriate female in NAD Eyes: EOM grossly intact, sclera white ENT: trachea midline Cardiovascular: regular rate and rhythm Respiratory: breathing comfortably on room air Musculoskeletal: no peripheral edema Skin: warm, dry Neuro: alert and oriented x 4 Psych: appropriate mood and affect Cosigned by Raz Lerner MD at 03/24/2025 4:58 PM EDT Associated attestation - Raz Lerner MD - 03/24/2025 4:58 PM EDT Images from the original note were not included. I personally performed a [id number] diagnostic evaluation on this patient within 24 hours of the Resident's evaluation. I agree with the care plan documented by the Resident with the following additions/comments. Assessment/Plan: Abnormal stress test: Postoperative minimal elevation in troponin 15 --> 15 without clinical ACS Prior to hospitalization patient reports high functional status without chest discomfort, dyspnea or typical angina PET MPI 03/20/2025 with medium sized predominately fixed mid to apical anterior and anteroseptal defect with abnormal wall motion to either 2 infarction or resting ischemia; normal resting and stress myocardial blood flow within the perfusion defect may reflect resting ischemia rather than infarction CMR 03/23/2025 nonischemic cardiomyopathy LV ejection fraction 45% Patient currently with recent perforated diverticulitis exploratory laparotomy with diverting sigmoid colostomy, ostomy with planned percutaneous drainage and ostomy Initial plan for consideration of left heart catheterization to evaluate abnormal PET MPI however patient without typical anginal symptoms, ischemic ECG change and given ongoing use of antibiotic and possibility of percutaneous drainage and ostomy will delay left heart catheterization and discussed with Mr. Lind regarding noninvasive anatomic assessment of LAD distribution with CCTA, prior PET MPI CT attenuation images demonstrate moderate coronary calcification Raz Lerner MD, [facility] Rounder WOC/ET RN consult/evaluation note: Jose Lind seen s/p ex-lap with diverting sigmoid colostomy and abdominal washout on 03/16. Surg in to remove the slightly buried katlin. Description of visit: -surgery in for katlin removal -pouch change with lesson Pouch/Products used today: -Coloplast [id number] with ring to edge Last pouch changed: 03/23/25 Recommendation and/or education: -we covered peristomal skin care, timing and frequency of ostomy pouch change and emptying. -pouch change instructions included; removing the pouch, best practice for cleansing the peristomal skin, we demonstrated how to measure stoma, how to cut the pouch and if additional accessories are needed -answered all questions to patient satisfaction. -we will continue to follow for further education Ostomy documentation: 03/23/25 1600 Colostomy RLQ Descending/sigmoid Placement Date/Time: 03/16/251818 Location: RLQ Surgery Date: 03/16/25 Colostomy Type: Descending/sigmoid Stoma Shape Oval Stoma Appearance Moist;[place];Red;Flush Peristomal Assessment Painful;Peristomal ulceratons (from katlin) Stoma Functioning No Flatus Present No Stool Present No Treatment Cleansed;Barrier ring applied Stomal Appliance 1 piece appliance;Changed (12892 with ring) RN updated If pouch fails please call ET RN for assistance so we can educate them about changing the pouch. If after hours please apply a new pouch and alert ET RN, via secure chat of the pouch falling off. Verbal consent obtained for any photographs uploaded to patient's chart. Please note that Wound/Ostomy Team is not available on weekends and holidays. GREGORY Santos [facility] Inpatient Progress Note 03/23/2025 Jose Lind 1965 [id number] Assessment/Plan: Jose Lind is a 59 y.o. female with a history of diverticulosis who presented to [place] ED for abdominal pain, distention found to have perforated diverticulitis. [facility] for general surgery evaluation s/p ex-lap with bowel resection and ostomy 03/16/[address] Carrillo. Course complicated by post-op ileus, intermittent tachycardia, and abnormal stress test. Diverticulitis with Perforation: With acute onset of abdominal pain 03/15/25. CTAP 03/16/2025 showed acute sigmoid diverticulitis with perforation, pelvic phlegmon. S/p ex-lap with bowel resection and ostomy 03/16/[address] Carrillo (general surgery). Repeat CTAP 03/22/2025 showed developing abscesses in the pelvis. IR consulted for drain placement. Restarted on Zosyn. General surgery following. Intermittent Tachycardia: likely multifactorial from pain, stress, electrolyte disturbance, infection, possible ischemic component. HR up to 130-140's intermittently. Multiple EKGs have shown SVT, atrial tachycardia, sinus tachycardia, PVCs. TTE 03/19/25 EF 43%, global hypokinesis. Cardiology initiated BB. Abnormal stress test: PET stress 03/20/25 significantly abnormal and suggestive of LAD disease. Cardiology planning LHC while inpatient, likely week of 03/23/25. Monitor on tele. MACE/MINS monitoring: POD#1 trop 15, POD#2 Trop 15. No baseline obtained prior to surgery. Patient without chest pain or SOB. Cardiac work-up as above. Postoperative Ileus: KUB 03/17/25 with possible postoperative ileus vs low grade partial SBO. Patient without flatulence. NG tube placed on 03/18/25. Remains NPO. TPN started 03/23/2025. Surgery managing. Code status: Full DVT Prophylaxis: Lovenox Medication Reconciliation: Reviewed using Per patient, at bedside, patient takes no home medications Current living situation: Home Expected Disposition: likely home, therapy consulted Estimated discharge date: TBD Medically Ready for Discharge: no - pending ileus and heart cath Subjective: Patient resting in bed, has had bowel output through her ostomy. Repeat CTAP yesterday revealed likely developing pelvic abscesses. IR consulted to evaluate for drainage and surgery moving forward with TPN. Restarted on Zosyn. Physical Exam: BP 103/82 (BP Location: Right arm, Patient Position: Lying) Pulse 73 Temp 98.4 F (36.9 C) (Oral) Resp 16 Ht 5' 10 Wt 81.6 kg (180 lb) SpO2 94% BMI 25.83 kg/m General: NAD Eyes: conjugate gaze, sclera clear, +NG ENT: neck supple Cardiovascular: Regular rate. Respiratory: Clear to auscultation, symmetric air entry. Gastrointestinal: mild TTP. Mild distention. Hypoactive BS. Colostomy in place. Genitourinary: no CVA tenderness Musculoskeletal: no major joint deformity Skin: warm, dry, no LE edema Neuro: Alert, oriented x3, no focal motor deficits Psych: Mood appropriate Current Medications: enoxaparin (LOVENOX) injection 40 mg Subcutaneous Daily [START ON 03/24/2025] insulin lispro 0-30 Units Subcutaneous Q4H VIGNESH metoprolol 10 mg Intravenous Q6H VIGNESH piperacillin-tazobactam (ZOSYN) extended infusion 3.375 g Intravenous Q8H potassium chloride SA 20 mEq Oral Once potassium chloride SA 20 mEq Oral Once Labs, Imaging and Studies reviewed: Results from last 7 days Lab Units 03/23/2542303/22/2541303/21/25 0912 WBC K/mcL 9.65 10.01 10.01 HGB g/dL 12.4 11.3* 11.5* HCT % 39.6 34.1* 36.0 PLT K/mcL 464* 415* 394 Results from last 7 days Lab Units 03/23/25 0424 03/22/25 0414 03/21/25 0912 03/19/25 0658 03/18/25 0251 SODIUM mmol/L 135 135 137 138 131* POTASSIUM mmol/L 3.6 3.4* 3.7 3.6 3.7 CHLORIDE mmol/L 100 101 100 103 99 BICARB mmol/L 25 25 23 BUN mg/dL 3* 3* 3* 9 10 CREATININE mg/dL 0.51 0.47 0.43 0.47 0.59 EGFR mL/min/1.73 m2 107 109 112 109 103 GLUCOSE mg/dL 99 103* 112* 131* 125* CALCIUM mg/dL 8.6 8.1* 8.5 8.4 8.7 PHOSPHORUS mg/dL 3.6 -- -- 2.7 2.1* Results from last 7 days Lab Units 03/19/2558 03/18/25 0251 03/17/25 0608 ALT U/L 10 13 13 AST U/L 12 11 14 ALK PHOS U/L 61 66 68 BILIRUBIN TOTAL mg/dL 0.5 0.6 0.9 CLINIC SURGERY PROGRESS NOTE Patient Name: Jose Lind ASSESSMENT AND PLAN Jose Lind is a 59 y.o. female with history of former smoker, s/p breast reduction, colon polyps, diverticulitis who [facility] with worsening abdominal pain for a week. OSH CTAP: acute sigmoid diverticulitis with kay perforation and pelvic phlegmon, measuring 9.5 x 3.5cm Perforated Diverticulitis - S/p ex-lap with diverting sigmoid colostomy and abdominal washout on 03/16 - Ostomy w/ bowel sweat; AROBF - ET consult for ostomy teaching, ostomy katlin in place, can remove early this week once having bowel fxn - NGT ILWS - NPO, mIVF; please keep accurate measure of ice intake - Cardiology planning on heart cath, please hold for now as needs possible perc drain and ostomy has not had output yet - IR c/s, unable to access pelvic fluid collection - Restart zosyn - PT/OT/CM for dispo - PICC/TPN today - Interval rescan at end of week Madi Bryant DO General Surgery Please contact surgical international project engineer professional caster 5PM-6AM and weekends - #[phone] SUBJECTIVE NAEO. Still w/o ostomy o/p/ NG bilious. Review of Systems: All systems were reviewed and otherwise negative except for as noted above PHYSICAL EXAM VITALS BP 103/82 (BP Location: Right arm, Patient Position: Lying) Pulse 73 Temp 98.4 F (36.9 C) (Oral) Resp 16 Ht 5' 10 Wt 81.6 kg (180 lb) SpO2 94% BMI 25.83 kg/m PHYSICAL EXAM General: Awake and alert, no acute distress Head: Normocephalic Eyes: EOM grossly intact Neck: Trachea midline Cardiovascular: Hemodynamically stable Pulmonary: Nonlabored breathing Extremities: No obvious deformities, warm and well perfused Skin: Dry and intact, no obvious rash Neurological: No gross focal deficits, answering questions appropriately GI: Abd soft, appropriately tender, tympany on percussion, ostomy with pink mucosa w/o output, C/D/I dressing, IMAGING Recent diagnostic imaging/reports reviewed. Pertinent findings may be listed above. Please correlate with formal radiology reads. LABS Laboratory studies ordered and reviewed. Pertinent findings may be listed below: Hgb: 12.4 03/23/25 WBC: 9.65 03/23/25 Plts: 464 03/23/25 Na: 135 03/23/25 K: 3.6 03/23/25 Cr: 0.51 03/23/25 INR: - - 03/23/25 UA obtained: pending 03/23/25 Resident Progress Note Patient Name: Jose Lind : 1965 Admit Date: [id number] Assessment and Plan 59 y.o. female with a past medical history of diverticulosis, former smoker with 20 pack years who [facility] as a transfer for general surgery evaluation, found to have perforated diverticulitis with pelvic phlegmon, s/p ex-lap with diverting sigmoid colostomy and abdominal washout. Cardiology was consulted 03/18 for intermittent tachycardia post-operatively and elevated troponin. PET stress 03/20 abnormal, planning for LHC prior to discharge. Elevated troponin Suspected CAD - Troponin trend post-op 03/17 15-> 15 - PET Stress 03/20/25 - abnormal, medium to large sized predominately fixed mid to apical anterior, apical septal and mid anteroseptal defect with abnormal wall motion consistent with either infarction or resting ischemia. Findings of normal resting and stress myocardial blood flow within the perfusion defect suggest findings reflect resting ischemia rather than infarction. -- Planning for LHC prior to discharge, coordinating with surgical team regarding timing - planning for interval re-scan for intraperitoneal fluid collections at end of week. Will obtain MR viability study in interim. Paroxysmal tachycardia - Suspected to be driven by sympathetic overactivity from surgery/pain/stress/infection as well as electrolyte imbalances in the post-op setting - Multiple EKGs obtained showing varying rhtyhms: SVT, atrial tachycardia, sinus tachycardia, and sinus with PVC's -- Was placed on IV lopressor (due to NPO) 5mg q6h, increased to 7.5mg q6h on 03/22. Goal K > 4, Mg < 2 HFmrEF - Suspect due to ischemic cardiomyopathy. Biatrial enlargement does suggest possible occult longstanding Afib - TTE 03/19/25 with EF 43%, grade 1 diastolic dysfunction. Bi-atrial enlargement. - PET Stress 03/20/25 with EF 30% -- Will add in GDMT as clinical course and PO status allows. All care and management plans will be discussed with the attending on service. Please see attending attestation for final recommendations. Des Kauffman DO 7:55 AM 03/23/25 Subjective [facility] telemetry reviewed. Episode around 1900 of tachcyardia, tele strips showing atrial tachycardia / SVT. Otherwise remained in NSR with rate in 70's. CT 03/22 with post-operative fluid collections in the pelvis which may represent developing abscesses. Evaluated by IR who felt fluid collections could not be targeted for a drain. Patient seen and examined at bedside. My first time meeting her but appears in good spirits making some jokes. Does endorse some abdominal distension and leaking around ostomy but said the RN is working on it. She is excited to get some nutrition as the plan is to start TPN soon. Discussed plan for [facility] once plan is finalized by surgery and IR. She is understanding. Denies any chest pain, palpitations, SOB. Physical Exam Vital Signs: BP 130/86 (BP Location: Right arm, Patient Position: Lying) Pulse 75 Temp 98.1 F (36.7 C) (Oral) Resp (!) 19 Ht 5' 10 Wt 81.6 kg (180 lb) SpO2 (!) 88% BMI 25.83 kg/m General: age appropriate female in NAD Eyes: EOM grossly intact, sclera white ENT: trachea midline, Cardiovascular: regular rate and rhythm without murmurs/rubs/gallops, no JVD appreciated Respiratory: clear to auscultation bilaterally without wheezes/rhonchi/rales Musculoskeletal: no peripheral edema Skin: warm, dry Neuro: alert and oriented x 4 Psych: appropriate mood and affect Cosigned by Marie Carney DO at 03/23/2025 12:23 PM EDT Associated attestation - Marie Carney DO - 03/23/2025 12:23 PM EDT I personally performed a [id number] diagnostic evaluation on this patient on the same calendar day as the housestaff's evaluation. I agree with the care plan documented by the housestaff with the following additions/comments: IMP: HFrEF. New diagnosis. PET stress abnormal with a mostly fixed defect however unclear if this is infarction versus resting ischemia. Remains pain-free Elevated troponin postop. Probably demand ischemia related to postop state and SVT Paroxysmal atrial tachycardia. Trigger likely related to hyperadrenergic state postoperatively Status post exploratory lap, diverting sigmoid colostomy, abdominal washout 03/16/2025 for diverticular perforation. REC: Will check a cardiac MRI to determine if she has infarction versus viability in the LAD territory Per surgery the patient may need a possible percutaneous drain for a fluid collection so we will defer left heart cath until surgical procedures have been completed She had some more arrhythmia last evening. Will increase Lopressor to 10 mg IV every 6 hours Aspirin when able GDMT when able Marie Carney DO, [facility] Rounding nurse: Office: [facility] Inpatient Progress Note 03/22/2025 Jose Lind 1965 [id number] Assessment/Plan: Jose Lind is a 59 y.o. female with a history of diverticulosis who presented to [place] ED for abdominal pain, distention found to have perforated diverticulitis. [facility] for general surgery evaluation s/p ex-lap with bowel resection and ostomy 03/16/[address] Carrillo. Course complicated by post-op ileus, intermittent tachycardia, and abnormal stress test. Diverticulitis with Perforation: With acute onset of abdominal pain 03/15/25. At H: CT A/p showed acute sigmoid diverticulitis with perforation, pelvic phlegmon, and pneumoperitoneum. S/p ex-lap with bowel resection and ostomy 03/16/[address] Carrillo (general surgery). S/p 5 days of Zosyn. General surgery surgery following. Intermittent Tachycardia: likely multifactorial from pain, stress, electrolyte disturbance, infection, possible ischemic component. HR up to 130-140's intermittently. Multiple EKGs have shown SVT, atrial tachycardia, sinus tachycardia, PVCs. TTE 03/19/25 EF 43%, global hypokinesis. Cardiology initiated BB. Abnormal stress test: PET stress 03/20/25 significantly abnormal and suggestive of LAD disease. Cardiology planning LHC while inpatient, likely week of 03/23/25. Monitor on tele. MACE/MINS monitoring: POD#1 trop 15, POD#2 Trop 15. No baseline obtained prior to surgery. Patient without chest pain or SOB. Cardiac work-up as above. Postoperative Ileus: KUB 03/17/25 with possible postoperative ileus vs low grade partial SBO. Patient without flatulence. IVF in place. NPO. NG tube placed on 03/18/25. Management per surgery. Code status: Full DVT Prophylaxis: Lovenox Medication Reconciliation: Reviewed using Per patient, at bedside, patient takes no home medications Current living situation: Home Expected Disposition: likely home, therapy consulted Estimated discharge date: TBD Medically Ready for Discharge: no - pending ileus and heart cath Subjective: Patient is resting comfortably, no significant bowel activity, NG tube in place. Comfortable on room air, hemodynamics are stable, replating potassium and magnesium to optimize given PVCs on telemetry-otherwise CBC/CMP stable. Anticipating heart cath sometime this week. Physical Exam: BP (!) 139/93 (BP Location: Right arm, Patient Position: Lying) Pulse 66 Temp 98.4 F (36.9 C) (Oral) Resp 17 Ht 5' 10 Wt 81.6 kg (180 lb) SpO2 96% BMI 25.83 kg/m General: NAD Eyes: conjugate gaze, sclera clear, +NG ENT: neck supple Cardiovascular: Regular rate. Respiratory: Clear to auscultation, symmetric air entry. Gastrointestinal: mild TTP. Mild distention. Hypoactive BS. Colostomy in place. Genitourinary: no CVA tenderness Musculoskeletal: no major joint deformity Skin: warm, dry, no LE edema Neuro: Alert, oriented x3, no focal motor deficits Psych: Mood appropriate Current Medications: enoxaparin (LOVENOX) injection 40 mg Subcutaneous Daily metoprolol 7.5 mg Intravenous Q6H VIGNESH Labs, Imaging and Studies reviewed: Results from last 7 days Lab Units 03/22/2541303/21/25 0903/19/25 0658 WBC K/mcL 10.01 10.01 9.64 HGB g/dL 11.3* 11.5* 11.5* HCT % 34.1* 36.0 35.5* PLT K/mcL 415* 394 361 Results from last 7 days Lab Units 03/22/25 04103/21/25 0912 03/19/25 0658 03/18/25 0251 03/17/25 0608 SODIUM mmol/L 135 137 138 131* 132* POTASSIUM mmol/L 3.4* 3.7 3.6 3.7 4.8 CHLORIDE mmol/L 101 100 103 99 100 BICARB mmol/L 26 25 25 23 24 BUN mg/dL 3* 3* 9 10 10 CREATININE mg/dL 0.47 0.43 0.47 0.59 0.58 EGFR mL/min/1.73 m2 109 112 109 103 104 GLUCOSE mg/dL 103* 112* 131* 125* 134* CALCIUM mg/dL 8.1* 8.5 8.4 8.7 8.8 PHOSPHORUS mg/dL -- -- 2.7 2.1* 2.2* Results from last 7 days Lab Units 03/19/25 0658 03/18/25 0251 03/17/25 0608 ALT U/L 10 13 13 AST U/L 12 11 14 ALK PHOS U/L 61 66 68 BILIRUBIN TOTAL mg/dL 0.5 0.6 0.9 Results from last 7 days Lab Units 03/16/25 1107 INR 1.1 General Cardiology Inpatient Follow-up Heart & Vascular [facility] 03/22/2025 Kinza Jacob CNP [facility] Rounding RN [phone] Patient: Jose Lind Date of : 1965 (59 y.o.) PCP: Shaina, Physician Proctologist: None Perpetual assessment: Patient is a 59 y.o. female with a past medical history significant for diverticulosis, perforated sigmoid diverticulitis s/p ex-lap with diverting colostomy and abdominal washout (03/16), former smoker with 20 pack years who [facility] as a transfer for general surgery evaluation. Surgery following. Cardiology consulted for post-op intermittent tachycardia and elevated troponin. Plan for LHC prior to discharge, appreciate further recommendations from surgical team regarding timing and aspirin/plavix initiation. Assessment/Plan: Intermittent Tachycardia - [facility] with diverticulosis, perforated sigmoid diverticulitis status post ex lap with diverting colostomy and abdominal washout on 03/16/2025. - The etiology of her intermittent sinus tachycardia is likely multifactorial and stemming from sympathetic overactivity from pain / stress, electrolyte disturbance, and infection from perforated sigmoid diverticulitis - Multiple EKGs obtained with varying rhythms depicted on different strips: SVT, atrial tachycardia, sinus tachycardia, sinus rhythm with PVCs. - Telemetry reviewed, currently normal sinus tachycardia with HR in the 130s, asymptomatic. Noted mostly in the 70-80s overnight, with few episodes of tachycardia into the 120-130s. - She denies any personal cardiac history, family history notable for CVA in mother and GA in father & brother - S/p stress test (06/2002) negative for ischemia, LVEF 65% - S/p stress test (12/2005) negative for ischemia, LVEF 55% - S/p stress echo (10/2010) negative for ischemia, LVEF 55% - TSH with reflex T4 WNL. NT-Pro BNP of 479 (03/16) - TTE (03/19): LVEF 43%, grade 1 diastolic dysfunction - On Lopressor 5mg q6hrs given she is n.p.o with NG tube in place. Will increase to 7.5mg q6hrs. - Patient's NG status precludes use of initiating GDMT therapy. Will consider to fold in Lisinopril once able to tolerate p.o intake. - PET Stress 03/20/2025 is significantly abnormal and suggestive of LAD disease. Although defect mostly fixed, concern for resting ischemia. - Plan for LHC this admission, not urgent as she is asymptomatic and recovering from recent surgery, appreciate further recommendations from surgical team regarding timing of LHC and initiation of aspirin/Plavix therapies. - Cardiology will continue to follow Subjective Patient denies any cardiac concerns overnight, denies chest pain or shortness of breath. States that she did see general surgery this morning, states that her understanding was that the heart cath would occur after removal of her NG tube. I sent a message to the technical operations vice president this morning, await response. She was encouraged to let nursing staff know if she has any further cardiac questions or concerns. ECG 12 Lead Final Result by Interface, Lab Results In [place] [facility] (03/20/2025 1901) Echocardiogram complete w contrast Final Result by Des Connor MD (03/19/2025 1109) Current Medications[1] Objective: Physical Examination: BP (!) 139/93 (BP Location: Right arm, Patient Position: Lying) Pulse 66 Temp 98.4 F (36.9 C) (Oral) Resp 17 Ht 5' 10 Wt 81.6 kg (180 lb) SpO2 96% BMI 25.83 kg/m Constitutional: Alert, well appearing, not in distress.? Eyes: Conjunctivae/corneas clear. Lungs: Clear to auscultation, no wheezes, rales or rhonchi. Cardiovascular: Tachycardic rate and regular rhythm, S1 and S2 normal, no murmurs noted, no carotid bruit, no pedal edema, no JVD. Abdomen: Soft, nontender. NG tube intact Skin: Normal coloration and turgor; no rashes or lesions on limited skin examination. Musculoskeletal: Normal Range of Motion (ROM) Psych: Oriented to time, person, and place; appropriate mood. Lab Results Component Value Date CHOL 110 03/18/2025 LDLCALC 67 03/18/2025 TRIG 100 03/18/2025 HDL 23 (L) 03/18/2025 Serum creatinine: 0.47 mg/dL 03/22/25 0414 Estimated creatinine clearance: 137.6 mL/min [1] Current Facility-Administered Medications Medication Dose Route Frequency Provider Last Rate Last Admin benzocaine (HURRICAINE) 20 % spray 2 spray 2 spray Mouth/Throat BID PRN Sandy Carrillo MD 2 spray at 03/22/25 0740 dextrose 5 % in lactated ringers infusion 125 mL/hr Intravenous Continuous Mariano Titus MD 125 mL/hr at 03/22/25 1205 125 mL/hr at 03/22/25 1205 enoxaparin (LOVENOX) syringe 40 mg 40 mg Subcutaneous Daily Tamica Palm MD 40 mg at 03/22/25 0826 HYDROmorphone (DILAUDID) injection 0.5-1 mg 0.5-1 mg Intravenous Q3H PRN Tamica Palm MD 1 mg at 03/22/25 0433 metoprolol (LOPRESSOR) injection 7.5 mg 7.5 mg Intravenous Q6H Rajni Ying MD 7.5 mg at 03/22/25 1112 naloxone (NARCAN) injection 0.1 mg 0.1 mg Intravenous PRN Catherine Santoro DO And naloxone (NARCAN) injection 0.4 mg 0.4 mg Intravenous PRN Catherine Santoro DO ondansetron (ZOFRAN) injection 4 mg 4 mg Intravenous Q6H PRN Catherine Santoro DO 4 mg at 03/20/25 1305 oxyCODONE (ROXICODONE) 10 mg/0.5 mL concentrated solution 5-10 mg 5-10 mg Sublingual Q4H PRN Tanja Campuzano MD 10 mg at 03/22/25 1206 prochlorperazine (COMPAZINE) injection 5 mg 5 mg Intravenous Q6H PRN Jackelin Fowler PA-C 5 mg at 03/18/25 1407 sodium chloride (PF) (NS) flush 5 mL 5 mL Intravenous PRN Tevin Addison MD And sodium chloride 0.9% (NS) 0-150 mL/hr Intravenous PRN Tevin Addison MD 25 mL/hr at 03/17/251951 25 mL/hr at 03/17/251951 CLINIC SURGERY PROGRESS NOTE Patient Name: Jose Lind ASSESSMENT AND PLAN Jose Lind is a 59 y.o. female with history of former smoker, s/p breast reduction, colon polyps, diverticulitis who [facility] with worsening abdominal pain for a week. OSH CTAP: acute sigmoid diverticulitis with kay perforation and pelvic phlegmon, measuring 9.5 x 3.5cm Perforated Diverticulitis - S/p ex-lap with diverting sigmoid colostomy and abdominal washout on 03/16 - Ostomy w/ bowel sweat; AROBF - ET consult for ostomy teaching, ostomy katlin in place, can remove early this week once having bowel fxn - NGT ILWS - NPO, mIVF; please keep accurate measure of ice intake - Cardiology planning on heart cath early this week - PT/OT/CM for dispo Mariano Titus MD General Surgery Please contact surgical international project engineer professional caster 5PM-6AM and weekends - #[phone] SUBJECTIVE Still awaiting ostomy fxn. Denies nausea. Feels less bloated. Review of Systems: All systems were reviewed and otherwise negative except for as noted above PHYSICAL EXAM VITALS BP 135/76 (BP Location: Right arm, Patient Position: Lying) Pulse 62 Temp 97.9 F (36.6 C) (Oral) Resp 18 Ht 5' 10 Wt 81.6 kg (180 lb) SpO2 92% BMI 25.83 kg/m PHYSICAL EXAM General: Awake and alert, no acute distress Head: Normocephalic Eyes: EOM grossly intact Neck: Trachea midline Cardiovascular: Hemodynamically stable Pulmonary: Nonlabored breathing Extremities: No obvious deformities, warm and well perfused Skin: Dry and intact, no obvious rash Neurological: No gross focal deficits, answering questions appropriately GI: Abd soft, appropriately tender, tympany on percussion, ostomy with pink mucosa w/o output, C/D/I dressing, IMAGING Recent diagnostic imaging/reports reviewed. Pertinent findings may be listed above. Please correlate with formal radiology reads. LABS Laboratory studies ordered and reviewed. Pertinent findings may be listed below: Hgb: 11.3 03/22/25 WBC: 10.01 03/22/25 Plts: 415 03/22/25 Na: 135 03/22/25 K: 3.4 03/22/25 Cr: 0.47 03/22/25 INR: - - 03/22/25 UA obtained: pending 03/22/25 [facility] Inpatient Progress Note 03/21/2025 Jose Lind 1965 [id number] Assessment/Plan: Jose Lind is a 59 y.o. female with a history of diverticulosis who presented to [place] ED for abdominal pain, distention, found to have diverticulitis with perforation and phlegmon. [facility] for general surgery evaluation. S/p ex-lap with bowel resection and ostomy 03/16/[address] Carrillo (general surgery). [facility] consulted for medical management, assumed care as primary on 03/21/25. Course complicated by post-op ileus, intermittent tachycardia, and abnormal stress test. Diverticulitis with Perforation: With acute onset of abdominal pain 03/15/25. At [facility]: CT A/p showed acute sigmoid diverticulitis with perforation, pelvic phlegmon, and pneumoperitoneum. S/p ex-lap with bowel resection and ostomy 03/16/[address] Carrillo (general surgery). S/p 5 days of Zosyn. General surgery surgery following. Intermittent Tachycardia: likely multifactorial from pain, stress, electrolyte disturbance, infection, possible ischemic component. HR up to 130-140's intermittently. Multiple EKGs obtained with various rhythms depicted such as SVT, atrial tachycardia, sinus tachycardia, sinus rhythm with PVCs. Mag/phos low, replaced. Echo 03/19/25 with EF 43%, grade I diastolic dysfunction, global hypokinesis of Left ventricle. Stress test as below. Cardiology initiated schedule BB, increased dose on 03/20/25 and planning addition of ACEi when able to take PO. Abnormal stress test: Pt reported family hx of early CAD. Stress checked for tachycardia and abnormal echo as above. PET stress 03/20/25 significantly abnormal and suggestive of LAD disease. Cardiology planning LHC while inpatient, likely week of 03/23/25. Monitor on tele. MACE/MINS monitoring: POD#1 trop 15, POD#2 Trop 15. No baseline obtained prior to surgery. Patient without chest pain or SOB. Cardiac work-up as above. Postoperative Ileus: KUB 03/17/25 with possible postoperative ileus vs low grade partial SBO. Patient without flatulence. IVF in place. NPO. NG tube placed on 03/18/25. Management per surgery. Hyponatremia: Na 132 postoperatively. Likely due to hypovolemia. IVF. Resolved by 03/19/25. Leukocytosis: WBC 14.34-->12.19. Likely due to above. S/p Zosyn. Resolved. Code status: Full DVT Prophylaxis: Lovenox Medication Reconciliation: Reviewed using Per patient, at bedside, patient takes no home medications Current living situation: Home Expected Disposition: likely home, therapy consulted Estimated discharge date: TBD Medically Ready for Discharge: no - pending ileus and heart cath Subjective: Patient is known to me. She is lying in bed this morning. She reports that she is feeling well currently, no nausea but still has not passed flatus. Reported abdomen is less distended. Discussed abnormal PET stress results and need for LHC this coming week. She states her brother had open heart surgery at 42 y/o. She denied any chest pain or dyspnea. All questions answered. Discussed [facility] to assume care as primary with surgery resident, surgery will continue to follow. Reviewed cardiology and surgery recommendations. Reviewed telemetry with HR 120s this morning with PVCs, spontaneously transitioned to NSR in the 70s during my exam. Today I personally reviewed prior medical records and have summarized my findings in my assessment and plan as noted above. Today I also personally reviewed recent labs including (CBC, BMP), diagnostics (stress test). High risk problems/medications/intervention s include: parenteral controlled substances (IV dilaudid PRN) Physical Exam: BP 133/83 (BP Location: Right arm, Patient Position: Lying) Pulse 84 Temp 98.3 F (36.8 C) (Oral) Resp (!) 19 Ht 5' 10 Wt 81.6 kg (180 lb) SpO2 (!) 81% BMI 25.83 kg/m General: NAD Eyes: conjugate gaze, sclera clear, +NG ENT: neck supple Cardiovascular: Regular rate. Respiratory: Clear to auscultation, symmetric air entry. Gastrointestinal: mild TTP. Mild distention. Hypoactive BS. Colostomy in place. Genitourinary: no CVA tenderness Musculoskeletal: no major joint deformity Skin: warm, dry, no LE edema Neuro: Alert, oriented x3, no focal motor deficits Psych: Mood appropriate Current Medications: enoxaparin (LOVENOX) injection 40 mg Subcutaneous Daily metoprolol 7.5 mg Intravenous Q6H VIGNESH Labs, Imaging and Studies reviewed: Results from last 7 days Lab Units 03/21/25 0912 03/19/25 0658 03/18/25 0251 WBC K/mcL 10.01 9.64 11.74* HGB g/dL 11.5* 11.5* 11.6* HCT % 36.0 35.5* 34.5* PLT K/mcL 394 361 328 Results from last 7 days Lab Units 03/21/25 0912 03/19/25 0658 03/18/25 0251 03/17/25 0608 SODIUM mmol/L 137 138 131* 132* POTASSIUM mmol/L 3.7 3.6 3.7 4.8 CHLORIDE mmol/L 100 103 99 100 BICARB mmol/L 25 25 23 24 BUN mg/dL 3* 9 10 10 CREATININE mg/dL 0.43 0.47 0.59 0.58 EGFR mL/min/1.73 m2 112 109 103 104 GLUCOSE mg/dL 112* 131* 125* 134* CALCIUM mg/dL 8.5 8.4 8.7 8.8 PHOSPHORUS mg/dL -- 2.7 2.1* 2.2* Results from last 7 days Lab Units 03/19/25 0658 03/18/25 0251 03/17/25 0608 ALT U/L 10 13 13 AST U/L 12 11 14 ALK PHOS U/L 61 66 68 BILIRUBIN TOTAL mg/dL 0.5 0.6 0.9 Results from last 7 days Lab Units 03/16/25 1107 INR 1.1 CLINIC SURGERY PROGRESS NOTE Patient Name: Jose Lind ASSESSMENT AND PLAN Jose Lind is a 59 y.o. female with history of former smoker, s/p breast reduction, colon polyps, diverticulitis who [facility] with worsening abdominal pain for a week. OSH CTAP: acute sigmoid diverticulitis with kay perforation and pelvic phlegmon, measuring 9.5 x 3.5cm Perforated Diverticulitis - S/p ex-lap with diverting sigmoid colostomy and abdominal washout on 03/16 - Ostomy w/ bowel sweat; AROBF - ET consult for ostomy teaching, ostomy katlin in place, can remove early this week once having bowel fxn - NGT ILWS - NPO, mIVF; please keep accurate measure of ice intake - Cardiology planning on heart cath early this week - PT/OT/CM for dispo Mariano Titus MD General Surgery Please contact surgical international project engineer professional caster 5PM-6AM and weekends - #[phone] SUBJECTIVE Feels better overall. Denies nausea. AROBF Review of Systems: All systems were reviewed and otherwise negative except for as noted above PHYSICAL EXAM VITALS BP (!) 137/109 (BP Location: Right arm, Patient Position: Lying) Pulse (!) 127 Temp 98.4 F (36.9 C) (Oral) Resp 18 Ht 5' 10 Wt 81.6 kg (180 lb) SpO2 94% BMI 25.83 kg/m PHYSICAL EXAM General: Awake and alert, no acute distress Head: Normocephalic Eyes: EOM grossly intact Neck: Trachea midline Cardiovascular: Hemodynamically stable Pulmonary: Nonlabored breathing Extremities: No obvious deformities, warm and well perfused Skin: Dry and intact, no obvious rash Neurological: No gross focal deficits, answering questions appropriately GI: Abd soft, appropriately tender, tympany on percussion, ostomy with pink mucosa w/o output, C/D/I dressing, IMAGING Recent diagnostic imaging/reports reviewed. Pertinent findings may be listed above. Please correlate with formal radiology reads. LABS Laboratory studies ordered and reviewed. Pertinent findings may be listed below: Hgb: 11.5 03/21/25 WBC: 10.01 03/21/25 Plts: 394 03/21/25 Na: 137 03/21/25 K: 3.7 03/21/25 Cr: 0.43 03/21/25 INR: - - 03/21/25 UA obtained: pending 03/21/25 Spiritual Care Progress Note Completed by: Katiana Morse Person(s) Present During this Visit: Patient Time Spent in Direct Patient Care: 15 Narrative: This aquatic life laborer met briefly with patient. She was cordial but said she wanted to take a nap. Senior Interaction Designer provided information regarding pastoral care services, 14/05 availability, and how to contact. Patient expressed gratitude. Patients Response to Pastoral Care: Appeared to be not engaged Planning for Future Visits: PRN Patient's Spiritual Needs Assessment Sources of Connection Beliefs and Practices Image of the Divine Role of Divine in Patient's Illness Spiritual Wellness - Activities and Resources Grief Assessment Expressed / Stated Feelings Attitude Towards Own Illness Understanding of Patients Coping Mechanisms Spiritual Diagnosis Facilitated Interventions Spiritual and Emotional Outcomes Resources Provided Bereavement Resources Spiritual Plan of Care Patient's Buddhism Needs Assessment Buddhism Connection Buddhism Home Sabianism Affiliation Local Buddhism Name Buddhism Resources Buddhism Rituals Buddhism Materials Provided Expressed Outcomes Family / Caregiver Needs Assessment Relationship to Patient Affect at Time of Visit Emotions Expressed During Visit Expressed Concerns Regarding Illness Sources of Hope and Strength Support and Participation in Care Grief Assessment Spiritual Assessment Interventions with Family / Friend Outcomes with Family / Friend Jen Morse MA, BCC, [place] Staff Senior Interaction [facility]En[facility] [phone] Cosigned by Liz Gant at 03/25/2025 7:29 AM EDT WOC/ET RN consult/evaluation note: Jose Erman seen s/p ex-lap with diverting sigmoid colostomy and abdominal washout on 03/16 Description of visit: -pouch change and lesson - present at bedside and attentive -pt attentive to verbal instruction but did not watch the pouch change Pouch/Products used today: Coloplast 88015, [place] ring, and a bead of paste at creases 3 and 9 oclock Last pouch changed: 03/20 Recommendation and/or education: -Discussed basic A&P, stoma appearance, and expected function of the stoma -we discussed ADLs including, showering/bathing, swimming and clothing -we explained how to obtain supplies, and when to call MD vs. ET RN, etc. -ostomy clinic and office information provided. -patient was given ostomy supplies and written teaching information. -we covered peristomal skin care, timing and frequency of ostomy pouch change and emptying. -pouch change instructions included; removing the pouch, best practice for cleansing the peristomal skin, we demonstrated how to measure stoma, how to cut the pouch and if additional accessories are needed -answered all questions to patient satisfaction. -we will continue to follow for further education Ostomy documentation: 03/20/25 1330 Colostomy RLQ Descending/sigmoid Placement Date/Time: 03/16/251818 Location: RLQ Surgery Date: 03/16/25 Colostomy Type: Descending/sigmoid Stoma Shape Oval Stoma Size (mm) (20x45) Stoma Appearance Moist;[place] Peristomal Assessment Denuded Stoma Functioning No Flatus Present No Stool Present No Treatment Cleansed;Stoma paste applied;Stoma powder applied;Skin sealant/skin barrier prep;Barrier ring applied Stomal Appliance 1 piece appliance;Changed (Coloplast 04196 with ring and bead of paste to creases) Effluent Appearance Other (Comment) (Sweat) RN updated If pouch fails please call ET RN for assistance so we can educate them about changing the pouch. If after hours please apply a new pouch and alert ET RN, via secure chat of the pouch falling off. Verbal consent obtained for any photographs uploaded to patient's chart. Please note that Wound/Ostomy Team is not available on weekends and holidays. GREGORY Santos [facility] Inpatient Progress Note 03/20/2025 Jose Lind 1965 [id number] Assessment/Plan: Jose Lind is a 59 y.o. female with a history of diverticulosis who presented to [place] ED for abdominal pain, distention, found to have diverticulitis with perforation and phlegmon. [facility] for general surgery evaluation. [facility] consulted for medical management. Diverticulitis with Perforation: With acute onset of abdominal pain 03/15/25. AT [facility]: CT A/p showed acute sigmoid diverticulitis with perforation, pelvic phlegmon, and pneumoperitoneum. S/p ex-lap with bowel resection and ostomy 03/16/[address] Carrillo (general surgery) . Continued Zosyn. General surgery surgery primary. Intermittent Tachycardia: likely multifactorial from pain, stress, electrolyte disturbance and infection. HR up to 130-'s-140's intermittently. Multiple EKGs obtained with various rhythms depicted such as SVT, atrial tachycardia, sinus tachycardia, sinus rhythm with PVCs. Stress echo 2010 negative for ischemia with EF 55%. Mag/phos low, replaced. TSH wnls. Echo 03/19/25 with EF 43%, grade I diastolic dysfunction, global hypokinesis of Left ventricle. Cardiology following, initiated schedule BB, increased dose on 03/20/25. PET stress pending. Monitor on tele. MACE/MINS monitoring: POD#1 trop 15, POD#2 Trop 15. No baseline obtained prior to surgery. Patient without chest pain or SOB. Cardiac work-up as above. Postoperative Ileus: KUB on 03/17/25 with possible postoperative ileus vs low grade partial SBO. Patient without flatulence. IVF in place. NPO. NG tube placed on 03/18/25. Management per surgery. Hyponatremia: Na 132 postoperatively. Likely due to hypovolemia. IVF. Resolved by 03/19/25. Leukocytosis: WBC 14.34-->12.19. Likely due to above. Zosyn in place. Resolved. Code status: Full DVT Prophylaxis: Lovenox per primary Thank you for allowing us to participate in the care of your patient. For any questions, please call the number of the covering hospitalist listed under the treatment team in care connect. Medication Reconciliation: Reviewed using Per patient, at bedside, patient takes no home medications Current living situation: Home Expected Disposition: Home Estimated discharge date: TBD Medically Ready for Discharge: no as above Subjective: Patient is new to me. She is sitting up in bathroom washing her face. She reports that she is feeling well currently, no nausea but still has not passed flatus. Reported intermittent abdominal pain and bloating. Discussed plan for PET stress today, she denied any chest pain or dyspnea. Reviewed surgery and cardiology recs. Today I personally reviewed prior medical records and have summarized my findings in my assessment and plan as noted above. Today I also personally reviewed recent labs including (CBC, CMP), diagnostics (KUB imaging from 03/18/[address] tube in place), and garden consultant/other provider recommendations (surgery 03/20/2025). High risk problems/medications/intervention s include: parenteral controlled substances (IV dilaudid) Physical Exam: BP 138/89 (BP Location: Right arm, Patient Position: Lying) Pulse 86 Temp 98.5 F (36.9 C) (Oral) Resp (!) 22 Ht 5' 10 Wt 81.6 kg (180 lb) SpO2 93% BMI 25.83 kg/m General: NAD Eyes: EOMI, sclera clear, +NG ENT: neck supple Cardiovascular: Regular rate. Respiratory: Clear to auscultation, symmetric air entry. On RA. Gastrointestinal: mild TTP. Mild distention. Hypoactive BS. Colostomy in place. Genitourinary: no CVA tenderness Musculoskeletal: no major joint deformity Skin: warm, dry, no LE edema Neuro: Alert, oriented x3, no focal motor deficits Psych: Mood appropriate Current Medications: enoxaparin (LOVENOX) injection 40 mg Subcutaneous Daily metoprolol 7.5 mg Intravenous Q6H VIGNESH piperacillin-tazobactam (ZOSYN) extended infusion 3.375 g Intravenous Q8H Labs, Imaging and Studies reviewed: Results from last 7 days Lab Units 03/19/25 0658 03/18/25 0251 03/17/25 0608 WBC K/mcL 9.64 11.74* 12.19* HGB g/dL 11.5* 11.6* 12.2 HCT % 35.5* 34.5* 37.9 PLT K/mcL 361 328 336 Results from last 7 days Lab Units 03/19/25 0658 03/18/25 0251 03/17/25 0608 SODIUM mmol/L 138 131* 132* POTASSIUM mmol/L 3.6 3.7 4.8 CHLORIDE mmol/L 103 99 100 BICARB mmol/L 25 23 24 BUN mg/dL 9 10 10 CREATININE mg/dL 0.47 0.59 0.58 EGFR mL/min/1.73 m2 109 103 104 GLUCOSE mg/dL 131* 125* 134* CALCIUM mg/dL 8.4 8.7 8.8 PHOSPHORUS mg/dL 2.7 2.1* 2.2* Results from last 7 days Lab Units 03/19/25 0658 03/18/25 0251 03/17/25 0608 ALT U/L 10 13 13 AST U/L 12 11 14 ALK PHOS U/L 61 66 68 BILIRUBIN TOTAL mg/dL 0.5 0.6 0.9 Results from last 7 days Lab Units 03/16/25 1107 INR 1.1 CLINIC SURGERY PROGRESS NOTE Patient Name: Jose Lind ASSESSMENT AND PLAN Jose Lind is a 59 y.o. female with history of former smoker, s/p breast reduction, colon polyps, diverticulitis who [facility] with worsening abdominal pain for a week. OSH CTAP: acute sigmoid diverticulitis with kay perforation and pelvic phlegmon, measuring 9.5 x 3.5cm Perforated Diverticulitis - S/p ex-lap with diverting sigmoid colostomy and abdominal washout on 03/16 - Ostomy w/ bowel sweat; AROBF - NGT ILWS - NPO, mIVF - ET consult for ostomy teaching, ostomy katlin in place - Continue multimodal pain control - PT/OT/CM for dispo Mariano Titus MD General Surgery Please contact surgical international project engineer professional caster 5PM-6AM and weekends - #[phone] SUBJECTIVE Feels less bloated. AROBF Review of Systems: All systems were reviewed and otherwise negative except for as noted above PHYSICAL EXAM VITALS BP 138/89 (BP Location: Right arm, Patient Position: Lying) Pulse 70 Temp 98.5 F (36.9 C) (Oral) Resp (!) 19 Ht 5' 10 Wt 81.6 kg (180 lb) SpO2 91% BMI 25.83 kg/m PHYSICAL EXAM General: Awake and alert, no acute distress Head: Normocephalic Eyes: EOM grossly intact Neck: Trachea midline Cardiovascular: Hemodynamically stable Pulmonary: Nonlabored breathing Extremities: No obvious deformities, warm and well perfused Skin: Dry and intact, no obvious rash Neurological: No gross focal deficits, answering questions appropriately GI: Abd soft, appropriately tender, tympany on percussion, ostomy with pink mucosa w/o output, C/D/I dressing, IMAGING Recent diagnostic imaging/reports reviewed. Pertinent findings may be listed above. Please correlate with formal radiology reads. LABS Laboratory studies ordered and reviewed. Pertinent findings may be listed below: Hgb: 11.5 03/20/25 WBC: 9.64 03/20/25 Plts: 361 03/20/25 Na: 138 03/20/25 K: 3.6 03/20/25 Cr: 0.47 03/20/25 INR: - - 03/20/25 UA obtained: pending 03/20/25 Resident Progress Note Patient Name: Jose Lind : 1965 Admit Date: [id number] Assessment and Plan Patient is a 59 y.o. female with a past medical history significant for diverticulosis, perforated sigmoid diverticulitis s/p ex-lap with diverting colostomy and abdominal washout (03/16), former smoker with 20 pack years who [facility] as a transfer for general surgery evaluation. Surgery following. Cardiology consulted for post-op intermittent tachycardia and elevated troponin. Intermittent Tachycardia - Etiology likely multifactorial and stemming from sympathetic overactivity from pain / stress, electrolyte disturbance, and infection from perforated sigmoid diverticulitis - Multiple EKGs obtained with varying rhythms depicted on different strips: SVT, atrial tachycardia, sinus tachycardia, sinus rhythm with PVCs - Family history notable for CVA in mother and GA in father & brother - S/p stress test (06/2002) negative for ischemia, LVEF 65% - S/p stress test (12/2005) negative for ischemia, LVEF 55% - S/p stress echo (10/2010) negative for ischemia, LVEF 55% - TSH with reflex T4 WNL. NT-Pro BNP of 479 (03/16) - TTE (03/19): LVEF 43%, grade 1 diastolic dysfunction - On Lopressor 5mg q6hrs given she is n.p.o with NG tube in place. Will increase to 7.5mg q6hrs. - Patient's NG status precludes use of initiating GDMT therapy. Will consider to fold in Lisinopril once able to tolerate p.o intake. - PET Stress planned for today. Will follow-up results. All care and management plans will be discussed with the attending on service. Mati Aranda MD 9:09 AM 03/20/25 Subjective Patient seen and evaluated at bedside this morning. In good spirits. Spoke with nuclear team this morning about PET Stress test to be performed. Patient in understanding. On review of telemetry, continued arrhythmogenic disturbances with fluctuation between NSR and tachyarrhythmia from both atrial and ventricular origins. Patient remains asymptomatic. Physical Exam Vital Signs: BP 138/89 (BP Location: Right arm, Patient Position: Lying) Pulse 70 Temp 98.5 F (36.9 C) (Oral) Resp (!) 19 Ht 5' 10 Wt 81.6 kg (180 lb) SpO2 91% BMI 25.83 kg/m Physical Exam Constitutional: General: She is not in acute distress. Appearance: She is not diaphoretic. Eyes: Extraocular Movements: Extraocular movements intact. Cardiovascular: Rate and Rhythm: Normal rate and regular rhythm. Pulses: Normal pulses. Heart sounds: Normal heart sounds. Pulmonary: Effort: Pulmonary effort is normal. No respiratory distress. Breath sounds: No wheezing. Abdominal: Tenderness: There is abdominal tenderness. Skin: General: Skin is warm and dry. Capillary Refill: Capillary refill takes less than 2 seconds. Neurological: General: No focal deficit present. Mental Status: She is alert. Psychiatric: Mood and Affect: Mood normal. Cosigned by Bernice Tang MD at 03/20/2025 1:05 PM EDT Associated attestation - Bernice Tang MD - 03/20/2025 1:05 PM EDT Images from the original note were not included. CARDIOLOGY CONSULTATION Bernice Tang MD, [facility], [facility] I have reviewed the history, physical, diagnosis and care plan with the resident physician. I confirm the assessment and treatment plan. I have performed my own separate complete history and physical exam on the same calendar day as theirs and it agrees with the exam and history documented by the resident in this note with the following addendum: Patient seen and examined. Resting comfortably within MGN. Denies chest pain or palpitations. On review of telemetry she had a lot more sustained episodes of atrial tachycardia overnight. Her Lopressor p.o. had to be stopped and switched to IV 5 every 6. Surprisingly her EF came back abnormal at 43% so she now needs an ischemic workup. IMPRESSION 1. 59-year-old female with no prior cardiac history comes in with perforated sigmoid diverticulitis status post exploratory lap with diverting colostomy on 03/16/2025. Now having ileus with an NG in. 2. Atrial tachycardia, asymptomatic in the 130s. Presumably from stress her body is under with the diverticulitis and perforation and ileus. 3. Cardiomyopathy with EF 43% on echo yesterday. Etiology unknown. PLAN 1. Check PET stress test to rule out ischemia as the cause of the low EF. 2. Increase Lopressor to 7.5 IV every 6. 3. Start GDMT with FAYE inhibitor after ileus better and she is able to take p.o. [facility] NURSE NOTE, Ostomy Follow Up Patient with new sigmoid colostomy 03/16. Awaiting return of bowel function. NG tube in place. No pouching issues noted. Patient resting quietly at time of visit, did not disturb. Will continue to follow, will initiate addition education as appropriate. CLINIC SURGERY PROGRESS NOTE Patient Name: Jose Lind ASSESSMENT AND PLAN Jose Lind is a 59 y.o. female with history of former smoker, s/p breast reduction, colon polyps, diverticulitis who [facility] with worsening abdominal pain for a week. OSH CTAP: acute sigmoid diverticulitis with kay perforation and pelvic phlegmon, measuring 9.5 x 3.5cm Perforated Diverticulitis - S/p ex-lap with diverting sigmoid colostomy and abdominal washout on 03/16 - Ostomy w/ bowel sweat; AROBF - NGT ILWS - NPO, mIVF - ET consult for ostomy teaching, ostomy katlin in place - Continue multimodal pain control - PT/OT/CM for dispo Mariano Titus MD General Surgery Please contact surgical international project engineer professional caster 5PM-6AM and weekends - #[phone] SUBJECTIVE Denies worsening abd pain or nausea. Feels better after NGT placement. Review of Systems: All systems were reviewed and otherwise negative except for as noted above PHYSICAL EXAM VITALS BP (!) 121/94 (BP Location: Left arm, Patient Position: Lying) Pulse 71 Temp 98.2 F (36.8 C) (Oral) Resp 14 Ht 5' 10 Wt 81.6 kg (180 lb) SpO2 96% BMI 25.83 kg/m PHYSICAL EXAM General: Awake and alert, no acute distress Head: Normocephalic Eyes: EOM grossly intact Neck: Trachea midline Cardiovascular: Hemodynamically stable Pulmonary: Nonlabored breathing Extremities: No obvious deformities, warm and well perfused Skin: Dry and intact, no obvious rash Neurological: No gross focal deficits, answering questions appropriately GI: Abd soft, appropriately tender, tympany on percussion, ostomy with pink mucosa w/o output, C/D/I dressing, IMAGING Recent diagnostic imaging/reports reviewed. Pertinent findings may be listed above. Please correlate with formal radiology reads. LABS Laboratory studies ordered and reviewed. Pertinent findings may be listed below: Hgb: 11.5 03/19/25 WBC: 9.64 03/19/25 Plts: 361 03/19/25 Na: 138 03/19/25 K: 3.6 03/19/25 Cr: 0.47 03/19/25 INR: - - 03/19/25 UA obtained: pending 03/19/25 [facility] Inpatient Progress Note 03/19/2025 Jose Lind 1965 [id number] Assessment/Plan: Jose Lind is a 59 y.o. female with a history of diverticulosis who presented to [place] ED for abdominal pain, distention, found to have diverticulitis with perforation and phlegmon. [facility] for general surgery evaluation. [facility] consulted for medical management Diverticulitis with Perforation: With acute onset of abdominal pain 03/15/25. AT [facility]: CT A/p showed acute sigmoid diverticulitis with perforation, pelvic phlegmon, and pneumoperitoneum. Continued Zosyn. S/p ex-lap with bowel resection and ostomy 03/16/[address] Carrillo (general surgery) . General surgery surgery primary. Intermittent Tachycardia: likely multifactorial from pain, stress, electrolyte disturbance and infection. HR up to 130-'s-140's intermittently. Multiple EKGs obtained with various rhythms depicted such as SVT, atrial tachycardia, sinus tachycardia, sinus rhythm with PVCs. Stress echo 2010 negative for ischemia with EF 55%. Mag/phos low, replaced. TSH wnls. Cardiology following, initiated schedule BB, increasing dose on 03/19/25. Echo 03/19/25 with EF 43%, grade I diastolic dysfunction, global hypokinesis of Left ventricle. Monitor on tele and continue to monitor electrolytes and replace as needed. MACE/MINS monitoring: POD#1 trop 15, POD#2 Trop 15. No baseline obtained prior to surgery. Patient without chest pain or SOB. Tachycardia/EKG as above. Echo 03/19/25 as above. Postoperative Ileus: KUB on 03/17/25 with possible postoperative ileus vs low grade partial SBO. Patient without flatulence. IVF in place. NPO. NG tube placed on 03/18/25. Management per surgery. Hyponatremia: Na 132 postoperatively. Likely due to hypovolemia. IVF in place. Resolved on 03/19/25. Leukocytosis: WBC 14.34-->12.19. Likely due to above. Zosyn in place. Down trending. Code status: Full DVT Prophylaxis: Lovenox per primary Thank you for allowing us to participate in the care of your patient. For any questions, please call the number of the covering hospitalist listed under the treatment team [facility]. Medication Reconciliation: Reviewed using Per patient, at bedside, patient takes no home medications Current living situation: Home Expected Disposition: Home Estimated discharge date: TBD Medically Ready for Discharge: no as above Subjective: Patient is known to me. She is lying in bed in no acute distress on exam. She reports that she is feeling better today. Patient had NG tube placed yesterday which she reports helped her feel much better. She does report 6/10 pain. She denies any nausea at this time. Spoke with cardiology physician regarding increasing BB dose today. Echo completed today, awaiting further cardiology recs given results. Her HR is stable at this time and patient is on RA. Today I personally reviewed prior medical records and have summarized my findings in my assessment and plan as noted above. Today I also personally reviewed recent labs including (CBC, CMP), diagnostics (KUB imaging from 03/18/[address] tube in place ), and garden consultant/other provider recommendations (surgery 03/19/2025). High risk problems/medications/intervention s include: parenteral controlled substances (IV dilaudid) Physical Exam: BP 114/82 (BP Location: Right arm, Patient Position: Lying) Pulse 74 Temp 98.1 F (36.7 C) (Oral) Resp 16 Ht 5' 10 Wt 81.6 kg (180 lb) SpO2 94% BMI 25.83 kg/m General: NAD Eyes: EOMI, sclera clear ENT: neck supple Cardiovascular: Regular rate. Respiratory: Clear to auscultation, symmetric air entry. On RA. Gastrointestinal: mild TTP. Mild distention. Hypoactive BS. Colostomy in place. Genitourinary: no CVA tenderness Musculoskeletal: no major joint deformity Skin: warm, dry, no LE edema Neuro: Alert, oriented x3, no focal motor deficits Psych: Mood appropriate Current Medications: enoxaparin (LOVENOX) injection 40 mg Subcutaneous Daily ketorolac 15 mg Intravenous Q6H metoprolol 10 mg Intravenous BID piperacillin-tazobactam (ZOSYN) extended infusion 3.375 g Intravenous Q8H Labs, Imaging and Studies reviewed: Results from last 7 days Lab Units 03/19/25 0658 03/18/25 0251 03/17/25 0608 WBC K/mcL 9.64 11.74* 12.19* HGB g/dL 11.5* 11.6* 12.2 HCT % 35.5* 34.5* 37.9 PLT K/mcL 361 328 336 Results from last 7 days Lab Units 03/19/25 0658 03/18/25 0251 03/17/25 0608 SODIUM mmol/L 138 131* 132* POTASSIUM mmol/L 3.6 3.7 4.8 CHLORIDE mmol/L 103 99 100 BICARB mmol/L 25 23 24 BUN mg/dL 9 10 10 CREATININE mg/dL 0.47 0.59 0.58 EGFR mL/min/1.73 m2 109 103 104 GLUCOSE mg/dL 131* 125* 134* CALCIUM mg/dL 8.4 8.7 8.8 PHOSPHORUS mg/dL 2.7 2.1* 2.2* Results from last 7 days Lab Units 03/19/25 0658 03/18/25 0251 03/17/25 0608 ALT U/L 10 13 13 AST U/L 12 11 14 ALK PHOS U/L 61 66 68 BILIRUBIN TOTAL mg/dL 0.5 0.6 0.9 Results from last 7 days Lab Units 03/16/25 1107 INR 1.1 Resident Progress Note Patient Name: Jose Lind : 1965 Admit Date: [id number] Assessment and Plan Patient is a 59 y.o. female with a past medical history significant for diverticulosis, perforated sigmoid diverticulitis s/p ex-lap with diverting colostomy and abdominal washout (03/16), former smoker with 20 pack years who [facility] as a transfer for general surgery evaluation. Surgery following. Cardiology consulted for post-op intermittent tachycardia and elevated troponin. Intermittent Tachycardia - Etiology likely multifactorial and stemming from sympathetic overactivity from pain / stress, electrolyte disturbance, and infection from perforated sigmoid diverticulitis - Multiple EKGs obtained with varying rhythms depicted on different strips: SVT, atrial tachycardia, sinus tachycardia, sinus rhythm with PVCs - Family history notable for CVA in mother and GA in father & brother - S/p stress test (06/2002) negative for ischemia, LVEF 65% - S/p stress test (12/2005) negative for ischemia, LVEF 55% - S/p stress echo (10/2010) negative for ischemia, LVEF 55% - TSH with reflex T4 WNL. NT-Pro BNP of 479 (03/16) - On VTE prophylaxis with Lovenox 40mg daily. Empiric abx with Zosyn - Recommend continuous telemetry monitoring. Patient was initiated on 25mg of Lopressor BID on 03/18 for 1 month after discharge. TTE pending. If TTE unremarkable, no further workup required. Elevated Troponin - Likely a consequence of myocardial oxygen-supply demand mismatch and possibly further influenced by the above tachycardia. Less concerned for ischemic insult - Patient asymptomatic with no chest pain, palpitations or dyspnea - Troponin T 15 -> 15 All care and management plans will be discussed with the attending on service. Mati Aranda MD 6:43 AM 03/19/25 Subjective Patient seen and evaluated at bedside this morning. Still endorsing some pain as expected but relieved with PRN medication. Denies any chest pain, palpitations, dyspnea. On review of telemetry, continued brief runs of SVT with PVC burden at times. Mag 1.9, K 3.6, Phos 2.7. Physical Exam Vital Signs: BP (!) 118/94 (BP Location: Left arm, Patient Position: Lying) Pulse 79 Temp 98.7 F (37.1 C) (Oral) Resp (!) 19 Ht 5' 10 Wt 81.6 kg (180 lb) SpO2 95% BMI 25.83 kg/m Physical Exam Constitutional: General: She is not in acute distress. Appearance: She is not diaphoretic. Eyes: Extraocular Movements: Extraocular movements intact. Cardiovascular: Rate and Rhythm: Normal rate and regular rhythm. Pulses: Normal pulses. Heart sounds: Normal heart sounds. Pulmonary: Effort: Pulmonary effort is normal. No respiratory distress. Breath sounds: No wheezing. Abdominal: Tenderness: There is abdominal tenderness. Skin: General: Skin is warm and dry. Capillary Refill: Capillary refill takes less than 2 seconds. Neurological: General: No focal deficit present. Mental Status: She is alert. Psychiatric: Mood and Affect: Mood normal. Cosigned by Bernice Tang MD at 03/19/2025 1:10 PM EDT Associated attestation - Bernice Tang MD - 03/19/2025 1:10 PM EDT Images from the original note were not included. CARDIOLOGY CONSULTATION Bernice Tang MD, [facility] I have reviewed the history, physical, diagnosis and care plan with the resident physician. I confirm the assessment and treatment plan. I have performed my own separate complete history and physical exam on the same calendar day as theirs and it agrees with the exam and history documented by the resident in this note with the following addendum: She is doing fine and has no cardiac complaints. She still continues to go in and out of atrial tachycardia though she had fewer events overnight than she did the night before. I attribute that to the initiation of Lopressor 25 twice daily. She is now n.p.o. so the Lopressor was switched to IV. We decided to check an echo just to be certain there was nothing else going on and surprisingly her EF came back at 43% today. It had always been normal in the past. She had a negative stress test in June 2022 but no ischemic evaluation since then. Because of her low EF which could be stress-induced, I want to rule out ischemic heart disease. Will check a PET stress test, possibly today if their schedule allows. If the stress test is negative then I would discontinue the beta-cam for now and follow-up with an echo in a month or so. CLINIC SURGERY PROGRESS NOTE Patient Name: Jose Lind ASSESSMENT AND PLAN Jose Lind is a 59 y.o. female with history of former smoker, s/p breast reduction, colon polyps, diverticulitis who [facility] with worsening abdominal pain for a week. OSH CTAP: acute sigmoid diverticulitis with kay perforation and pelvic phlegmon, measuring 9.5 x 3.5cm Perforated Diverticulitis - S/p ex-lap with diverting sigmoid colostomy and abdominal washout on 03/16 - Ostomy w/ bowel sweat; AROBF - NPO, mIVF - ET consult for ostomy teaching, ostomy katlin in place - Continue multimodal pain control - PT/OT/CM for dispo Mariano Titus MD General Surgery Please contact surgical international project engineer professional caster 5PM-6AM and weekends - #[phone] SUBJECTIVE Denies nausea. Still awaiting bowel fxn. Review of Systems: All systems were reviewed and otherwise negative except for as noted above PHYSICAL EXAM VITALS BP 119/81 (BP Location: Right arm, Patient Position: Lying) Pulse 86 Temp 98.6 F (37 C) (Oral) Resp (!) 23 Ht 5' 10 Wt 81.6 kg (180 lb) SpO2 95% BMI 25.83 kg/m PHYSICAL EXAM General: Awake and alert, no acute distress Head: Normocephalic Eyes: EOM grossly intact Neck: Trachea midline Cardiovascular: Hemodynamically stable Pulmonary: Nonlabored breathing Extremities: No obvious deformities, warm and well perfused Skin: Dry and intact, no obvious rash Neurological: No gross focal deficits, answering questions appropriately GI: Abd soft, appropriately tender, tympany on percussion, ostomy with pink mucosa w/o output, C/D/I dressing, IMAGING Recent diagnostic imaging/reports reviewed. Pertinent findings may be listed above. Please correlate with formal radiology reads. LABS Laboratory studies ordered and reviewed. Pertinent findings may be listed below: Hgb: 11.6 03/18/25 WBC: 11.74 03/18/25 Plts: 328 03/18/25 Na: 131 03/18/25 K: 3.7 03/18/25 Cr: 0.59 03/18/25 INR: 1.1 03/18/25 UA obtained: pending 03/18/25 [facility] Inpatient Progress Note 03/18/2025 Jose Lind 1965 [id number] Assessment/Plan: Jose Lind is a 59 y.o. female with a history of diverticulosis who presented to [place] ED for abdominal pain, distention, found to have diverticulitis with perforation and phlegmon. [facility] for general surgery evaluation. [facility] consulted for medical management Diverticulitis with Perforation: With acute onset of abdominal pain 03/15/25. AT [facility]: CT A/p showed acute sigmoid diverticulitis with perforation, pelvic phlegmon, and pneumoperitoneum. Continued Zosyn. S/p ex-lap with bowel resection and ostomy 03/16/[address] Carrillo (general surgery) . General surgery surgery primary. Intermittent Tachycardia: likely multifactorial from pain, stress, electrolyte disturbance and infection. HR up to 130-'s-140's intermittently. Multiple EKGs obtained with various rhythms depicted such as SVT, atrial tachycardia, sinus tachycardia, sinus rhythm with PVCs. Stress echo 2010 negative for ischemia with EF 55%. Mag/phos low, replaced. TSH wnls. Cardiology following, initiated schedule BB and echo ordered. Monitor on tele and continue to monitor electrolytes and replace as needed. MACE/MINS monitoring: POD#1 trop 15, POD#2 Trop 15. No baseline obtained prior to surgery. Patient without chest pain or SOB. Tachycardia/EKG as above. Echo pending. Postoperative Ileus: KUB on 03/17/25 with possible postoperative ileus vs low grade partial SBO. Patient without flatulence. IVF in place. NPO. Management per surgery. Hyponatremia: Na 132 postoperatively. Likely due to hypovolemia. IVF in place. Down trending 03/18/25. Urine studies pending. . Leukocytosis: WBC 14.34-->12.19. Likely due to above. Zosyn in place. Down trending. Code status: Full DVT Prophylaxis: Lovenox per primary Thank you for allowing us to participate in the care of your patient. For any questions, please call the number of the covering hospitalist listed under the treatment team in care connect. Medication Reconciliation: Reviewed using Per patient, at bedside, patient takes no home medications Current living situation: Home Expected Disposition: Home Estimated discharge date: TBD Medically Ready for Discharge: no as above Subjective: Patient is known to me. She is sitting up in bed in no acute distress on exam. She tells me that she feels horrible this morning. She reports that her pain is worse today. She is distended on my exam and TTP today. KUB from yesterday with likely postoperative ileus. She has not yet had return of bowel function. Patient with nausea this morning but improved by my exam. She had issues with tachycardia overnight with HR intermittently up into 130-140s. Multiple EKGs obtained showing different rhythms. Cardiology is now following and initiated BB and ordered echo. Today I personally reviewed prior medical records and have summarized my findings in my assessment and plan as noted above. Today I also personally reviewed recent labs including (CBC, CMP, TSH, Trop), diagnostics (EKG tracing from 03/18/25 with sinus rhythm with PVCs ), and garden consultant/other provider recommendations (surgery 03/18/2025). High risk problems/medications/intervention s include: parenteral controlled substances (IV dilaudid) Physical Exam: BP 119/81 (BP Location: Right arm, Patient Position: Lying) Pulse 87 Temp 98.6 F (37 C) (Oral) Resp (!) 22 Ht 5' 10 Wt 81.6 kg (180 lb) SpO2 92% BMI 25.83 kg/m General: NAD Eyes: EOMI, sclera clear ENT: neck supple Cardiovascular: Regular rate. Respiratory: Clear to auscultation, symmetric air entry. On RA. Gastrointestinal: +tender to palpation. +distention. Hypoactive BS. Colostomy in place. Genitourinary: no CVA tenderness Musculoskeletal: no major joint deformity Skin: warm, dry, no LE edema Neuro: Alert, oriented x3, no focal motor deficits Psych: Mood appropriate Current Medications: enoxaparin (LOVENOX) injection 40 mg Subcutaneous Daily ketorolac 15 mg Intravenous Q6H methocarbamol 1 g Intravenous Q8H piperacillin-tazobactam (ZOSYN) extended infusion 3.375 g Intravenous Q8H sodium phosphate 30 mmol Intravenous Once Labs, Imaging and Studies reviewed: Results from last 7 days Lab Units 03/18/25 02503/17/25 0608 03/16/25 1108 WBC K/mcL 11.74* 12.19* 14.34* HGB g/dL 11.6* 12.2 13.2 HCT % 34.5* 37.9 41.0 PLT K/mcL 328 336 393 Results from last 7 days Lab Units 03/18/25 0251 03/17/25 0608 03/16/25 1107 SODIUM mmol/L 131* 132* 137 POTASSIUM mmol/L 3.7 4.8 4.2 CHLORIDE mmol/L 99 100 101 BICARB mmol/L 23 24 24 BUN mg/dL 10 10 11 CREATININE mg/dL 0.59 0.58 0.73 EGFR mL/min/1.73 m2 103 104 94 GLUCOSE mg/dL 125* 134* 115* CALCIUM mg/dL 8.7 8.8 9.2 PHOSPHORUS mg/dL 2.1* 2.2* -- Results from last 7 days Lab Units 03/18/25 0251 03/17/25 0608 ALT U/L 13 13 AST U/L 11 14 ALK PHOS U/L 66 68 BILIRUBIN TOTAL mg/dL 0.6 0.9 Results from last 7 days Lab Units 03/16/25 1107 INR 1.1 WOC/ET RN consult/evaluation note: Jose Lind seen s/p ex-lap with diverting sigmoid colostomy and abdominal washout on 03/16 Description of visit: -introductory visit and supplies dropped off -daughter present and open to education -pt awake and alert Pouch/Products used: -post op Last pouch changed: 03/16 Recommendation and/or education: -Discussed basic A&P, stoma appearance, and expected function of the stoma -we briefly explained how to obtain supplies -ostomy clinic and office information provided. -patient was given ostomy supplies and written teaching information. -we covered peristomal skin care, timing and frequency of ostomy pouch change and emptying. -answered all questions to patient satisfaction. -we will continue to follow for further education Ostomy documentation : 03/17/25 1230 Colostomy RLQ Descending/sigmoid Placement Date/Time: 03/16/251818 Location: RLQ Surgery Date: 03/16/25 Colostomy Type: Descending/sigmoid Stoma Appearance Red;Moist Stool Present No Stomal Appliance Intact;1 piece appliance Effluent Appearance Other (Comment) (bowel sweat) RN notified of assessment and plan. If pouch fails please call ET RN for assistance so we can educate them about changing the pouch. If after hours please apply a new pouch and alert ET RN, via secure chat of the pouch falling off. Verbal consent obtained for any photographs uploaded to patient's chart. Please note that Wound/Ostomy Team is not available on weekends and holidays. GREGORY Santos Anesthesia Progress Note 1 Day Post-Op Procedure(s): EXPLORATORY LAPAROTOMY, POSSIBLE BOWEL RESECTION, POSSIBLE OSTOMY Comment: In no acute distress. Awake and alert. Denies post-op nausea, vomiting or sore throat. Questions addressed. Temp: [36.4 C-38.7 C] 36.6 C Heart Rate: [81-99] 85 Resp: [16-26] 16 BP: (101-136)/(69-94) 113/78 SpO2: [94 %-100 %] 99 % [facility] Inpatient Progress Note 03/17/2025 Jose Lind 1965 [id number] Assessment/Plan: Jose Lind is a 59 y.o. female with a history of diverticulosis who presented to [place] ED for abdominal pain, distention, found to have diverticulitis with perforation and phlegmon. [facility] for general surgery evaluation. [facility] consulted for medical management Diverticulitis with Perforation: With acute onset of abdominal pain 03/15/25. AT [facility]: CT A/p showed acute sigmoid diverticulitis with perforation, pelvic phlegmon, and pneumoperitoneum. Continued Zosyn. S/p ex-lap with bowel resection and ostomy 03/16/[address] Carrillo (general surgery) . General surgery surgery primary Preoperative evaluation: George Revised Cardiac Index Risk Factors: High risk surgery . At home, patient able to complete < 4 METS as evidenced by inability to climb two flights of stairs without CP or dyspnea. Chronic medical conditions that increase perioperative risk not captured with RCRI include: none. On physical exam, patient does not demonstrate any evidence of clinically significant cardiac murmur, ACS or congestive heart failure. Most recent cardiac testing: ECG 03/16/25 sinus tach rate of 102 BPM, non specific T wave changes. After chart review and discussion with patient, qualifies for Intermediate Risk ( 1-2 RCRI with poor functional status). We will measure NT-proBNP, and if >200 would qualify as higher risk and would recommend monitoring troponin POD #1 and POD #2 to capture MACE/MINS. . Further cardiac testing will not reduce patients risk and okay to proceed without further testing. Final decision to take patient to OR left to risk/benefit decision making of surgical team. POD#1 trop pending. Postoperative Ileus: KUB on 03/17/25 with possible postoperative ileus vs low grade partial SBO. Patient without flatulence. IVF in place. NPO. Management per surgery. Hyponatremia: Na 132 postoperatively. Likely due to hypovolemia. IVF in place. Trend. Leukocytosis: WBC 14.34-->12.19. Likely due to above. Zosyn in place. Trend. Code status: Full DVT Prophylaxis: Lovenox per primary Thank you for allowing us to participate in the care of your patient. For any questions, please call the number of the covering hospitalist listed under the treatment team in care connect. Medication Reconciliation: Reviewed using Per patient, at bedside, patient takes no home medications Current living situation: Home Expected Disposition: Home Estimated discharge date: TBD Medically Ready for Discharge: no as above Subjective: Patient is new to me. She is lying in bed in no acute distress on exam. She tells me that she is sore this morning. She rates her pain a 5-6/10 currently. She reports that she has not yet started to pass gas since surgery and that they just removed her hernandez this morning. She is bloated on exam and XR completed per surgery with concern for ileus. Her colostomy is in place with trace bloody OP. IVF in place. Today I personally reviewed prior medical records and have summarized my findings in my assessment and plan as noted above. Today I also personally reviewed recent labs including (CBC, CMP, [place]), diagnostics (KUB images 03/17/2025 with postoperative ileus ), and garden consultant/other provider recommendations (surgery 03/17/2025). High risk problems/medications/intervention s include: parenteral controlled substances (IV dilaudid) Physical Exam: BP 101/81 (BP Location: Right arm, Patient Position: Lying) Pulse 85 Temp 98.6 F (37 C) (Oral) Resp 18 Ht 5' 10 Wt 81.6 kg (180 lb) SpO2 97% BMI 25.83 kg/m General: NAD Eyes: EOMI, sclera clear ENT: neck supple Cardiovascular: Regular rate, no murmur Respiratory: Clear to auscultation, symmetric air entry Gastrointestinal: Soft, non tender to palpation. +distention. Hypoactive BS. Colostomy in place. Genitourinary: no CVA tenderness Musculoskeletal: no major joint deformity Skin: warm, dry, no LE edema Neuro: Alert, oriented x3, no focal motor deficits Psych: Mood appropriate Current Medications: enoxaparin (LOVENOX) injection 40 mg Subcutaneous Daily piperacillin-tazobactam (ZOSYN) extended infusion 3.375 g Intravenous Q8H Labs, Imaging and Studies reviewed: Results from last 7 days Lab Units 03/17/25 0608 03/16/25 1108 WBC K/mcL 12.19* 14.34* HGB g/dL 12.2 13.2 HCT % 37.9 41.0 PLT K/mcL 336 393 Results from last 7 days Lab Units 03/17/25 0608 03/16/25 1107 SODIUM mmol/L 132* 137 POTASSIUM mmol/L 4.8 4.2 CHLORIDE mmol/L 100 101 BICARB mmol/L 24 24 BUN mg/dL 10 11 CREATININE mg/dL 0.58 0.73 EGFR mL/min/1.73 m2 104 94 GLUCOSE mg/dL 134* 115* CALCIUM mg/dL 8.8 9.2 PHOSPHORUS mg/dL 2.2* -- Results from last 7 days Lab Units 03/17/25 0608 ALT U/L 13 AST U/L 14 ALK PHOS U/L 68 BILIRUBIN TOTAL mg/dL 0.9 Results from last 7 days Lab Units 03/16/25 1107 INR 1.1 CLINIC SURGERY PROGRESS NOTE Patient Name: Jose Lind ASSESSMENT AND PLAN Jose Lind is a 59 y.o. female with history of former smoker, s/p breast reduction, colon polyps, diverticulitis who [facility] with worsening abdominal pain for a week. OSH CTAP: acute sigmoid diverticulitis with kay perforation and pelvic phlegmon, measuring 9.5 x 3.5cm Perforated Diverticulitis - Patient presented with perforated diverticulitis and peritoneal on exam - s/p ex-lap with diverting sigmoid colostomy and abdominal washout on 03/16 - NPO, mIVF - AROBF - ostomy katlin in place - ET consult for ostomy teaching - Will obtain KUB given bloating and tympany on percussion Sharon Pizano MD General Surgery Please contact surgical international project engineer professional caster 5PM-6AM and weekends - #[phone] SUBJECTIVE Feels better after surgery but a bit bloated. No nausea. Ostomy without gas or stool Review of Systems: All systems were reviewed and otherwise negative except for as noted above PHYSICAL EXAM VITALS BP 101/81 (BP Location: Right arm, Patient Position: Lying) Pulse 91 Temp 98.6 F (37 C) (Oral) Resp (!) 21 Ht 5' 10 Wt 81.6 kg (180 lb) SpO2 97% BMI 25.83 kg/m PHYSICAL EXAM General: Awake and alert, no acute distress Head: Normocephalic Eyes: EOM grossly intact Neck: Trachea midline Cardiovascular: Hemodynamically stable Pulmonary: Nonlabored breathing Extremities: No obvious deformities, warm and well perfused Skin: Dry and intact, no obvious rash Neurological: No gross focal deficits, answering questions appropriately GI: Abd soft, appropriately tender, tympany on percussion, ostomy with pink mucosa w/o output, C/D/I dressing, IMAGING Recent diagnostic imaging/reports reviewed. Pertinent findings may be listed above. Please correlate with formal radiology reads. LABS Laboratory studies ordered and reviewed. Pertinent findings may be listed below: Hgb: 13.2 03/17/25 WBC: 14.34 03/17/25 Plts: 393 03/17/25 Na: 137 03/17/25 K: 4.2 03/17/25 Cr: 0.73 03/17/25 INR: 1.1 03/17/25 UA obtained: pending 03/17/25 documented in this encounter [facility] 04-01-2025 Note [facility] DISCHARGE Jose Molina Account: [id number] Admitted: 03/16/2025 Discharge Date/Time: 04/01/25 / 11:55 AM Handoff to PCP Routine hospital follow up Clinical Summary Jose Lind is a 59 y.o. female with a history of diverticulosis who presented to [place] ED for abdominal pain, distention found to have perforated diverticulitis. [facility] for general surgery evaluation. S/p Ex-lap with bowel resection and ostomy 5/26/25 (Dr. Carrillo, ). Hospital course complicated by post-op ileus, intermittent tachycardia, and abnormal stress test. Diverticulitis with Perforation: With acute onset of abdominal pain 03/15/25. CTAP 03/16/25 showed acute sigmoid diverticulitis with perforation, pelvic phlegmon. S/p ex-lap with bowel resection and ostomy 03/16/25 (Dr. Carrillo, ). Repeat CTAP 03/22/25 showed developing abscesses in the pelvis, noted again on CT A/P 03/26/25. S/p drain placement with IR 03/26/25, fluid culture 03/26/25 with B ovatus (B fragilis). Continued Zosyn but switched to Augmentin at discharge. Repeat CT A/P 03/30/25 with improvement. GS followed. Intermittent Tachycardia: likely multifactorial from pain, stress, electrolyte disturbance, infection, possible ischemic component. HR up to 130-140's intermittently. Multiple EKGs have shown SVT, atrial tachycardia, sinus tachycardia, PVCs. TTE 03/19/25 EF 43%, global hypokinesis. Cardiology followed, initiated BB. Abnormal stress test: PET stress 03/20/25 significantly abnormal and suggestive of LAD disease. 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 Cardiology followed, recommend OP follow up for evaluation of LHC. Postop Ileus: KUB 03/17/25 with possible postoperative ileus vs low grade partial SBO. Required NG tube. Required TPN 03/23-03/27/25. Improved. GS followed. Incidental pulmonary nodule: CCTA with sub centimeter LLL nodule, recommend re-imaging in 12mo as OP. Discharge Medications Discharge Medications New Medications Details amoxicillin-clavulanate 875-125 mg per tablet Commonly known as: AUGMENTIN Take 1 (one) tablet by mouth 2 (two) times a day for 10 days . Quantity: 20 tablet aspirin 81 MG EC tablet Start taking on: April 02, 2025 Take 1 (one) tablet (81 mg total) by mouth daily Start: 04/02/25. Quantity: 30 tablet atorvastatin 40 MG tablet Commonly known as: LIPITOR Take 1 (one) tablet (40 mg total) by mouth nightly . Quantity: 30 tablet cyclobenzaprine 10 MG tablet Commonly known as: FLEXERIL Take 1 (one) tablet (10 mg total) by mouth every 8 (eight) hours for 10 days . Quantity: 30 tablet metoprolol tartrate 50 MG tablet Commonly known as: LOPRESSOR Take 1 (one) tablet (50 mg total) by mouth 2 (two) times a day . Quantity: 60 tablet Normal Saline Flush injection Generic drug: sodium chloride (PF) Inject 10mL into drain tubing daily for 21 days . Quantity: 300 mL oxyCODONE 5 MG immediate release tablet Commonly known as: ROXICODONE Take 1 (one) tablet (5 mg total) by mouth every 6 (six) hours as needed for pain . Quantity: 15 tablet senna-docusate 8.6-50 mg Commonly known as: SENNA-S Take 1 (one) tablet by mouth 2 (two) times a day . Quantity: 60 tablet Physician(s) Family: No, Physician, Phone: None, Address: [facility] Follow Up: OTHER - NOT IN LIST Rowan Mcclelland, [facility] [address] [facility] [address] [address] Follow up You are scheduled for a follow up appointment on 05/08/25 at 9:10 am. We are recommending a repeat echocardiogram in 3 months to re-check your heart output. This can be arranged closer to your home. Please call with questions. [facility] [place] [address] [facility] [phone] Follow up office will call with appointment for drain removal Additional Information: Patient seen and examined day of discharge. For more information regarding patient's care, including complete radiology reports, please contact [place] [facility] Records at Patient instructions, including activity, were given to the patient/family at discharge. Please see the After Visit Summary in the medical record for details. Time spent on discharge: > 30 minutes Completed by: Radha Goode MD on 04/01/25, 11:55 AM AUTHENTICATED BY RADHA GOODE, ON 04/01/2025 11:55:32 [facility] 04-01-2025 Hospital course Narrative [facility] DISCHARGE SUMMARY Jose Lind Account: [id number] Admitted: 03/16/2025 Discharge Date/Time: 04/01/25:55 AM Handoff to PCP Routine hospital follow up Clinical Summary Jose Lind is a 59 y.o. female with a history of diverticulosis who presented to [place] ED for abdominal pain, distention found to have perforated diverticulitis. [facility] for general surgery evaluation. S/p Ex-lap with bowel resection and ostomy 03/16/25 (Dr. Carrillo, ). Hospital course complicated by post-op ileus, intermittent tachycardia, and abnormal stress test. Diverticulitis with Perforation: With acute onset of abdominal pain 03/15/25. CTAP 03/16/25 showed acute sigmoid diverticulitis with perforation, pelvic phlegmon. S/p ex-lap with bowel resection and ostomy 03/16/25 (Dr. Carrillo, ). Repeat CTAP 03/22/25 showed developing abscesses in the pelvis, noted again on CT A/P 03/26/25. S/p drain placement with IR 03/26/25, fluid culture 03/26/25 with B ovatus (B fragilis). Continued Zosyn but switched to Augmentin at discharge. Repeat CT A/P 03/30/25 with improvement. GS followed. Intermittent Tachycardia: likely multifactorial from pain, stress, electrolyte disturbance, infection, possible ischemic component. HR up to 130-140's intermittently. Multiple EKGs have shown SVT, atrial tachycardia, sinus tachycardia, PVCs. TTE 03/19/25 EF 43%, global hypokinesis. Cardiology followed, initiated BB. Abnormal stress test: PET stress 03/20/25 significantly abnormal and suggestive of LAD disease. 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 Cardiology followed, recommend OP follow up for evaluation of LHC. Postop Ileus: KUB 03/17/25 with possible postoperative ileus vs low grade partial SBO. Required NG tube. Required TPN 03/23-03/27/25. Improved. GS followed. Incidental pulmonary nodule: CCTA with sub centimeter LLL nodule, recommend re-imaging in 12mo as OP. Discharge Medications Discharge Medications New Medications Details amoxicillin-clavulanate 875-125 mg per tablet Commonly known as: AUGMENTIN Take 1 (one) tablet by mouth 2 (two) times a day for 10 days . Quantity: 20 tablet aspirin 81 MG EC tablet Start taking on: April 02, 2025 Take 1 (one) tablet (81 mg total) by mouth daily Start: 04/02/25. Quantity: 30 tablet atorvastatin 40 MG tablet Commonly known as: LIPITOR Take 1 (one) tablet (40 mg total) by mouth nightly . Quantity: 30 tablet cyclobenzaprine 10 MG tablet Commonly known as: FLEXERIL Take 1 (one) tablet (10 mg total) by mouth every 8 (eight) hours for 10 days . Quantity: 30 tablet metoprolol tartrate 50 MG tablet Commonly known as: LOPRESSOR Take 1 (one) tablet (50 mg total) by mouth 2 (two) times a day . Quantity: 60 tablet Normal Saline Flush injection Generic drug: sodium chloride (PF) Inject 10mL into drain tubing daily for 21 days . Quantity: 300 mL oxyCODONE 5 MG immediate release tablet Commonly known as: ROXICODONE Take 1 (one) tablet (5 mg total) by mouth every 6 (six) hours as needed for pain . Quantity: 15 tablet senna-docusate 8.6-50 mg Commonly known as: SENNA-S Take 1 (one) tablet by mouth 2 (two) times a day . Quantity: 60 tablet Physician(s) Family: No, Physician, Phone: None, Address: [facility] Follow Up: OTHER - NOT IN LIST Rowan Mcclelland, HOSPITAL STAFF PHARMACIST [address] [facility] [address] [id number] Follow up You are scheduled for a follow up appointment on 05/08/25 at 9:10 am. We are recommending a repeat echocardiogram in 3 months to re-check your heart output. This can be arranged closer to your home. Please call with questions. [facility] [place] [address] [facility] [phone] Follow up office will call with appointment for drain removal Additional Information: Patient seen and examined day of discharge. For more information regarding patient's care, including complete radiology reports, please contact [place] [facility] Records at Patient instructions, including activity, were given to the patient/family at discharge. Please see the After Visit Summary in the medical record for details. Time spent on discharge: > 30 minutes Completed by: Radha Goode MD on 04/01/25, 11:55 AM documented in this encounter [facility]01-20[facility]/01/2025 Jose Lind 1965 [id number] Assessment/Plan: Jose Lind is a 59 y.o. female with a history of diverticulosis who presented to [place] ED for abdominal pain, distention found to have perforated diverticulitis. [facility] for general surgery evaluation. S/p Ex-lap with bowel resection and ostomy 03/16/25 (Dr. Carrillo, ). Hospital course complicated by post-op ileus, intermittent tachycardia, and abnormal stress test. Diverticulitis with Perforation: With acute onset of abdominal pain 03/15/25. CTAP 03/16/25 showed acute sigmoid diverticulitis with perforation, pelvic phlegmon. S/p ex-lap with bowel resection and ostomy 03/16/25 (Dr. Carrillo, ). Repeat CTAP 03/22/25 showed developing abscesses in the pelvis, noted again on CT A/P 03/26/25. S/p drain placement with IR 03/26/25, fluid culture 03/26/25 with B ovatus (B fragilis). Continued Zosyn. Repeat CT A/P 03/30/25 with improvement. GS followed. Intermittent Tachycardia: likely multifactorial from pain, stress, electrolyte disturbance, infection, possible ischemic component. HR up to 130-140's intermittently. Multiple EKGs have shown SVT, atrial tachycardia, sinus tachycardia, PVCs. TTE 03/19/25 EF 43%, global hypokinesis. Cardiology followed, initiated BB. Abnormal stress test: PET stress 03/20/25 significantly abnormal and suggestive of LAD disease. 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 Cardiology followed, recommend OP follow up for evaluation of LHC. Postop Ileus: KUB 03/17/25 with possible postoperative ileus vs low grade partial SBO. Required NG tube. Required TPN 03/23-03/27/25. Improved. GS followed. Incidental pulmonary nodule: CCTA with sub centimeter LLL nodule, recommend re-imaging in 12mo as OP. Code status: Full code DVT Prophylaxis: Lovenox Current living situation: Home Expected Disposition: Same Estimated discharge date: Today Medically Ready for Discharge: yes Subjective: Pt seen and examined. No overnights events reported and eager to be discharged home. Plan of care updated and pt agreeable: - S/p b/l pelvic IR drain placement 03/26/25, L drain removed 03/31, planning for R drain as out pt and Gen surg team approved for discharge with drain. - Pt tolerating low fiber diet, TPN stopped 03/27/25 Physical Exam: BP 125/85 Pulse 92 Temp 98.4 degrees F (36.9 degrees C) (Oral) Resp 16 Ht 5' 10 Wt 78.3 kg (172 lb 9.9 oz) SpO2 95% BMI 24.77 kg/m General: NAD Eyes: EOMI, sclera clear ENT: neck supple Cardiovascular: Regular rate, no murmur Respiratory: Clear to auscultation, symmetric air entry Gastrointestinal: Soft, non distended, positive bowel sounds. Midline incisions well appearing. Ostomy in place. Genitourinary: no CVA tenderness Musculoskeletal: no major joint deformity Skin: warm, dry, no LE edema Neuro: Alert, oriented x3, no focal motor deficits Psych: Mood appropriate Current Medications: amoxicillin-clavulanate 1 tablet Oral Q12H [facility] aspirin 81 mg Oral Daily atorvastatin 40 mg Oral Nightly cyclobenzaprine 10 mg Oral Q8H [facility] enoxaparin (LOVENOX) injection 40 mg Subcutaneous Daily metoprolol tartrate 50 mg Oral BID polyethylene glycol 17 g Oral Daily senna-docusate 1 tablet Oral BID sodium chloride (PF) 10 mL Intracatheter Q8H [facility] Labs, Imaging and Studies reviewed: Results from last 7 days Lab Units 04/01/25 0514 03/31/25 0511 03/30/25 0505 WBC K/mcL 7.34 6.62 7.79 HGB g/dL 10.9* 11.0* 11.6* HCT % 33.8* 34.8* 35.3* PLT K/mcL 531* 506* 546* Results from last 7 days Lab Units 04/01/25 0514 03/31/25 0511 03/30/25 0505 SODIUM mmol/L 136 134* 135 POTASSIUM mmol/L 3.9 4.0 3.9 CHLORIDE mmol/L 104 100 101 BICARB mmol/L 25 27 25 BUN mg/dL 7* 8 7* CREATININE mg/dL 0.45 0.54 0.57 EGFR mL/min/1.73 m2 110 106 104 GLUCOSE mg/dL 91 84 102* CALCIUM mg/dL 8.8 8.5 8.9 PHOSPHORUS mg/dL 3.6 3.8 3.4 AUTHENTICATED BY RADHA GOODE, ON 04/01/2025 11:52:03 [facility] 04-01-2025 Note CLINIC SURGERY PROGR ESS NOTE Patient Name: Jose Lind ASSESSMENT AND PLAN Jose Lind is a 59 y.o. female with history of former smoker, s/p breast reduction, colon polyps, diverticulitis who [facility] with worsening abdominal pain for a week. OSH CTAP: acute sigmoid diverticulitis with kay perforation and pelvic phlegmon, measuring 9.5 x 3.5cm Perforated Diverticulitis Intraabdominal Abscess Seroma - S/p ex-lap with diverting sigmoid colostomy and abdominal washout on 03/16 - C/b abscess formation - S/p b/l pelvic IR drain placement 03/26/25, L drain removed 03/31, planning for R drain removal 04/01 - ET following, appreciate their assistance - Pt tolerating low fiber diet, TPN stopped 03/27/25 - PT/OT/CM for dispo - F/u drain cultures: Mixed enteric with mod growth of bacteroides ovatus - Ct improved 03/30 - Still w/ seropurulent drainage in R drain - Ok to DC w/ drain, will follow up in office this Sunday to for drain removal - surgical medications/supplies sent to [facility] this am Madi Bryant, DO General Surgery Please contact surgical international project engineer professional caster 5PM-6AM and weekends - #[phone] SUBJECTIVE NAEO. Eager for DC. Tolerating diet. Remaining drain still seropurulent. PHYSICAL EXAM VITALS BP 125/85 Pulse 92 Temp 98.4 degrees F (36.9 degrees C) (Oral) Resp 16 Ht 5' 10 Wt 78.3 kg (172 lb 9.9 oz) SpO2 95% BMI 24.77 kg/m PHYSICAL EXAM General: Awake and alert, no acute distress Head: Normocephalic Eyes: EOM grossly intact Neck: Trachea midline Cardiovascular: Hemodynamically stable Pulmonary: Nonlabored breathing Extremities: No obvious deformities, warm and well perfused Skin: Dry and intact, no obvious rash Neurological: No gross focal deficits, answering questions appropriately GI: Abd soft, b/l lower abd mildly TTP, ostomy with pink mucosa w/ very small amount of stool in bag, C/D/I dressing, EULALIA x 1 seropurulent IMAGING Recent diagnostic imaging/reports reviewed. Pertinent findings may be listed above. Please correlate with formal radiology reads. LABS Laboratory studies ordered and reviewed. Pertinent findings may be listed below: Hgb: 10.9 04/01/25 WBC: 7.34 04/01/25 Plts: 531 04/01/25 Na: 136 04/01/25 K: 3.9 04/01/25 Cr: 0.45 04/01/25 INR: - - 04/01/25 UA obtained: pending 04/01/25 AUTHENTICATED BY MADI BRYANT, ON 04/01/2025 08:17:24 [facility] 03-31-2025 Miscellaneous Notes Stoma note: -In for routine pouch check, pouch intact. -no question from her or her -looks like possible dc 04/01 -We will continue to follow. Left sided IR drain removed without difficulty. Catheter intact. DSD applied. Midline wound probed with sterile q-tip after cleansing with betadine. Small amount of serosang fluid expressed. ABD applied. Patient tolerated both procedure well. Lea Short CNP General Surgery Problem: Pressure Injury, Risk of Goal: Absence of pressure injury Outcome: Met Problem: Pain Goal: Reduced pain sensation Outcome: Partially Met Goal: Control of acute pain to acceptable level Outcome: Partially Met Goal: Able to cope with pain Outcome: Partially Met Goal: Able to achieve maximum level of physical functioning Outcome: Partially Met Goal: Able to achieve maximum level of psychosocial functioning Outcome: Partially Met Interventional Radiology/Neuroradiology Sign-Off VIR Procedures Performed: Drain Placement, pelvic x2 Medications: Antibiotic decision is deferred to the primary medical or surgery service Follow-up: Drain management is deferred to the surgery service Home Health Needs: Consult Home Health for drain care, specifically for flushing and dressing changes as needed. Will need Rx for flushes if discharging with drain(s) in place [facility] Interventional Radiology Daily Progress Note Assessment and Plan: * Diverticulitis of colon with perforation Assessment & Plan 59 yo female who [facility] with worsening abdominal pain for a week. CT A/P: acute sigmoid diverticulitis with kay perforation and pelvic phlegmon, measuring 9.5 x 3.5cm 03/16: S/p ex-lap with diverting sigmoid colostomy and abdominal washout 03/22 CT A/P:Postoperative fluid collections in the pelvis which may represent developing abscesses IR consulted by surgery for pelvic drain 03/[address] drain d/t location of fluid collection IR reconsulted for re-evaluation of drain placement repeat CT pending 03/26 IR: S/p CT guided bilateral pelvic abscess drain placement (10 Fr x 2) Continue drains to bulb drainage Monitor and record output Flush and dressing changes per orders. Recommend continuing drain until output less than 10 ml/ 24 hours and/or imaging confirmation of fluid collection resolution. Care and management of drain per Surgery team Please re-consult IR prn drain complications or concerns Pt to follow up with Surgery as an outpatient, unless otherwise indicated, for which IR will need to be notified. IR will sign off Subjective/Objective: Patient sitting up in bed. Endorses some mild generalized abdominal pain. Denies n/v. Discussed IR procedure with patient including drain management should she discharge with them in place. Verbalized understanding. Questions answered. Review of Systems: The following system(s) were reviewed: GI. Physical Examination: BP 127/85 (BP Location: Left arm, Patient Position: Lying) Pulse 82 Temp 97.7 F (36.5 C) (Oral) Resp 16 Ht 5' 10 Wt 78.9 kg (174 lb) SpO2 94% BMI 24.97 kg/m General: A&O 3, pleasant Resp:Unlabored, symmetrical respirations. On RA. GI: abdomen soft, appropriately TTP, midline nichol intact, edges well approx Drain: RLQ drain, site soft, dressing clean, dry, intact. 75 mL output recorded. Brown, cloudy, thin drainage noted LLQ drain, site soft, dressing clean, dry, intact. 50 mL output recorded. Brown, cloudy, thin drainage noted Results/Medications Reviewed 03/27/25 11:16 AM: Laboratory, Radiology, Medications, and Transcriptions Loreta Magaña CNP Interventional Radiology [facility] 03/27/2025 For contact number, please refer to on-call directory [facility] IR Rounding APPs Patient sitting up in bed. Endorses some mild generalized abdominal pain. Denies n/v. Discussed IR procedure with patient including drain management should she discharge with them in place. Verbalized understanding. Questions answered. Nutrition Support Team Daily Progress Note Pt advanced to Low Fiber diet on 03/27. Plan to discontinue TPN today per discussion with Surgery team. Nutrition support team will sign-off at this time. Please reconsult for TPN dosing if again indicated. Lexus Finney RD, LD, CNSC VIR I/P PRE-PROCEDURE SUMMARY 1965 ALLERGIES has no known allergies. ROOM [facility]/ CODE STATUS Full Code ISOLATION There are no current isolations documented for this patient. PRECAUTIONS None Pre-Meds Needed? Ordered: PROCEDURE INFORMATION PROCEDURE: Pelvic drain placement vs. Aspiration Diagnosis: Pelvic fluid collection Can patient consent? Yes Family/POA name and contact: AC/AP MEDS LABS ASA 81mg Last Dose: 4 AM Held: YES 03/26 Lovenox 40mg SQ Last Dose: 03/25 AM Held: YES 03/26 ANTIBIOTIC ADMINISTRATION Hx piperacillin-tazobactam (ZOSYN) IVPB 3.375 g (premix) Last given: 0600 Frequency: Every 8 hours Not given DIET ORDER NPO, except sips with meds Results from last 7 days Lab Units 03/26/25 0413 PLT K/mcL 400 CREATININE mg/dL 0.47 EGFR mL/min/1.73 m2 109 RECENT VITALS (PCU 2) Temp POC Glucose HR BP RR SpO2 NEURO LDA RESP + O2 Neuro (WDL): Exceptions to WDL Level of Consciousness: Alert, Awake Orientation Level: Oriented X4 Neuro Symptoms: Denied X1 PIV PICC Respiratory (WDL): Within Defined Limits Respiratory Pattern: Regular, Easy, Unlabored SpO2: 93 % O2 Device: None (Room air) O2 Flow Rate (L/min): 1 L/min CARDIAC INFUSIONS PULSES Cardiac (WDL): Exceptions to WDL Cardiac Rhythm: Sinus Ectopy: Premature ventricular contractions Cardiac Symptoms: Denies Adult TPN 50 mL/hr at 03/25/25 2140 dextrose lactated Ringers 75 mL/hr (03/26/25 0457) R DP R PT L DP L PT HISTORY SPECIAL CONSIDERATIONS Past Medical History: Diagnosis Date Diverticulitis Sleep Apnea No Problem: Actual or potential alteration in health Goal: Absence of healthcare acquired conditions Outcome: Partially Met Goal: Knowledge of Interdisciplinary Plan of Care Outcome: Partially Met Goal: Knowledge of Enviroment Outcome: Partially Met Problem: Pain Goal: Reduced pain sensation Outcome: Partially Met Goal: Control of acute pain to acceptable level Outcome: Partially Met Goal: Able to cope with pain Outcome: Partially Met Goal: Able to achieve maximum level of physical functioning Outcome: Partially Met Goal: Able to achieve maximum level of psychosocial functioning Outcome: Partially Met Problem: Pressure Injury, Risk of Goal: Absence of pressure injury Outcome: Partially Met Problem: Falls, Risk of Goal: Absence of falls Outcome: Partially Met Goal: Absence of physical injury Outcome: Partially Met Cardiology Sign-Off Discharge Medications: Metoprolol Tartrate 50mg bid Aspirin 81mg daily Atorvastatin 40mg daily Consider additional GDMT pending tolerance to oral BB and hospital course - ACEi/ARB Follow-up Imaging, Testing: N/a Follow-up Appointments: Follow-up with cardiology in ~1 month Additional Instructions Reviewed with Patient and/or Family: Discussed CCTA showing mild-moderate coronary artery disease but no lesions warranting intervention. Discussed moderately reduced EF and use of GDMT to optimize heart function. Thank you for your consult. Please feel free to reach back out with any additional questions, concerns, or clarifications. Des Kauffman DO Internal Medicine PGY-3 Cosigned by Raz Lerner MD at 03/25/2025 3:13 PM EDT Associated attestation - Raz Lerner MD - 03/25/2025 3:13 PM EDT CCTA reviewed mild nonobstructive disease no significant LAD disease that would correspond to perfusion defect on PET MPI. Discussed with patient and provided additional reassurance. Continue cardiovascular medical regimen including metoprolol tartrate 50 mg twice daily, aspirin 81 mg daily and atorvastatin 40 mg daily Mildly reduced LV ejection fraction agree with attempt to add either FAYE or ARB as hemodynamically tolerated Will arrange outpatient OHHVP follow-up in 1 month attempt up titration of GDMT and repeat echocardiogram in 3 months No cardiovascular contraindication to any invasive surgeries if indicated Please call with any additional questions or concerns, thank you Problem: Actual or potential alteration in health Goal: Absence of healthcare acquired conditions Outcome: Partially Met Goal: Knowledge of Interdisciplinary Plan of Care Outcome: Partially Met Goal: Knowledge of Enviroment Outcome: Partially Met Problem: Pain Goal: Reduced pain sensation Outcome: Partially Met Goal: Control of acute pain to acceptable level Outcome: Partially Met Goal: Able to cope with pain Outcome: Partially Met Goal: Able to achieve maximum level of physical functioning Outcome: Partially Met Goal: Able to achieve maximum level of psychosocial functioning Outcome: Partially Met Problem: Pressure Injury, Risk of Goal: Absence of pressure injury Outcome: Partially Met Problem: Falls, Risk of Goal: Absence of falls Outcome: Partially Met Goal: Absence of physical injury Outcome: Partially Met Stoma note: -pouch intact -now with function -planned lesson with and pt on 03/25 at 1700 Total Parenteral Nutrition (TPN) Assessment Service Line Ordering: Madi Bryant DO/Surgery IV access: PICC Drug/Food Allergies: Patient has no known allergies. Hospital Course: 59 yo female with hx of colon polyps and diverticulitis treated non-operatively with abx [facility] for worsening abdominal pain x 1 week. Found to have perforated diverticulitis. S/p ex-lap with diverting sigmoid colostomy, abdominal washout on 03/16. Course complicated by post-op ileus vs pSBO and intermittent tachycardia. NGT placed to ILWS on 03/18. Pending return of bowel function. Pt has been NPO x 7 days, reports normal nutrition status prior to this per review of unit RD documentation. Plan for PICC/TPN, interval rescan at end of week. Drains/OP: NGT-1350 ml, colostomy-0 ml Past Medical Hx/Nutrition Hx: Past Medical History: Diagnosis Date Diverticulitis Ht: 70in Current Wt: 81.6 kg (180 lb) Admit Wt: 81.6 kg (03/16) IBW: 69.5 kg (BMI 24.9) Body mass index is 25.83 kg/m . reflecting overweight Wt hx: Wt Readings from Last 5 Encounters: 03/16/25 81.6 kg (180 lb) *stable TRAVEL OT per pt report per unit RD documentation Laboratory: Recent Labs 03/21/25 0912 03/22/25 0414 03/23/25 0424 NA 137 135 135 K 3.7 3.4* 3.6 BICARB CL 100 101 100 GLUCOSE 112* 103* 99 BUN 3* 3* 3* CREATININE 0.43 0.47 0.51 MG 1.7 1.8 2.2 PHOS -- -- 3.6 FSB Medications: lovenox, lispro, zosyn, KCl IVF: D5LR @ 125 ml/hr (~150 gm dextrose), receiving since 03/17 Indication for TPN: ileus vs low grade pSBO. Inadequate nutrition x 7 days Estimated Energy Needs Total Energy Estimated Needs: 5168-8076 kcal Method for Estimating Needs: 25-30 kcal/kg IBW BMI 22 (69.5 kg) Total Protein Estimated Needs: 83-104 gm Method for Estimating Needs: 1.2-1.5 gm/kg IBW BMI 22 Fluid Needs Total Fluid Estimated Needs: 9539-6343 ml Method for Estimating Needs: ~1 ml/kcal TPN recommendations: 50g AA, 150g Dextrose, 50g SMOF lipids at 50ml/hr. Provides 1210 calories and 50g protein. No insulin to be added initially. 100 mg thiamine added for refeeding risk. Tentative goal 03/24. TPN Goal: 100g AA, 260g Dextrose, 50g SMOF lipids at 75ml/hr. Provides 1784 calories and 100g protein. Kate Cedillo RD, LD, CNSC Reviewed screening form with pt Will request for meds for mri Nutrition Care Initial Assessment Reason for Completion: Dietitian Screen (LOS) Nutrition Diagnosis: Altered GI function related to post-op ileus s/p ex-lap with diverting sigmoid colostomy and abdominal washout as evidenced by NPO status x7 days and need for TPN to meet calorie and protein needs. Does NOT meet ASPEN criteria for protein calorie malnutrition. Nutrition Intervention/Recommendations: - Initiate TPN per Nutrition Support Team. - Nutrition Education: Learner: patient Educated on: initiation of TPN Readiness: acceptance Method: explanation Response: verbalizes understanding Nutrition Prescription: Diet: NPO sips of clear liquids and ice chips with meds ONS: Not indicated at this time Nutrition Goals: TPN to meet nutrition needs until oral/enteral route established. Start Date:03/23/2025 Expected End Date:03/27/2025 Assessment: Pertinent Clinical Information: Pt presented with worsening abdominal pain x1 week admitted 03/16 for perforated sigmoid diverticulitis. S/p ex-lap with diverting sigmoid colostomy and abdominal washout 03/16. Course complicated by post-op ileus. Plan for LHC prior to discharge, cardiology following. Per Surgery note today plan is for PICC and TPN today. 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 Reports UBW of 180 lb and has not had any significant weight loss. Denies any nausea or vomiting. Does report that her ostomy bag has output in it. Denies chewing or swallowing issues. Past Medical History: Diagnosis Date Diverticulitis Past Surgical History: Procedure Laterality Date BREAST SURGERY EXPLORATORY LAPAROTOMY N/A 03/16/2025 Procedure: EXPLORATORY LAPAROTOMY, POSSIBLE BOWEL RESECTION, POSSIBLE OSTOMY; Surgeon: Lavinia Carrillo MD; [facility]; Service: General Surgery; Laterality: N/A; Current ht:5' 10 Current wt:.81.6 kg (180 lb) Body mass index is 25.83 kg/m . BMI Classification: Overweight (25-29.9) Wt hx: No weight hx found in chart. Wt Readings from Last 10 Encounters: 03/16/25 81.6 kg (180 lb) Current diet: Diet NPO Except: ICE CHIPS, SIPS WITH MEDS, SIPS OF CLEAR LIQUIDS, OTHER; Specify: NO CAFFEINE Adult TPN Appetite: poor Recent intake: NPO/sips of clear liquids x4 days per flowsheet - Current intake does not meet estimated needs. Barriers to adequate p.o. intakes: NPO d/t post op ileus. Nutrition Related Allergies/Intolerances: No Nutrition Related Allergies noted Cultural or Buddhism Dietary Needs :No Cultural or Buddhism Dietary needs noted Difficulty Chewing/Swallowing: no issues documented Fluid Status: - non-pitting generalized Skin Integrity: incision to abdomen anterior per flowsheet GI Function: colostomy: 0 mL output per flowsheet Nutrition-Focused Physical Exam: Nutrition Focus Physical Exam Type: Hands-On Regions Assessed Orbital: WNL Temporal: WNL Buccal: WNL Clavicular: WNL Interosseous: WNL Upper Arm: WNL Deltoid: WNL Scapular: WNL Quadriceps: WNL Calf:WNL Labs: Recent Labs 03/21/25 0912 03/22/25 0414 03/23/25 0424 NA 137 135 135 K 3.7 3.4* 3.6 BICARB 25 26 27 CL 100 101 100 GLUCOSE 112* 103* 99 BUN 3* 3* 3* CREATININE 0.43 0.47 0.51 CALCIUM 8.5 8.1* 8.6 MG 1.7 1.8 2.2 PHOS -- -- 3.6 No results found for: B12, FOLATE, VITD, IRON, FERRITIN, ZINC No results for input(s): POCGLU in the last 72 hours. Lab Results Component Value Date HGBA1C 5.6 03/18/2025 Scheduled Meds: enoxaparin (LOVENOX) injection 40 mg Subcutaneous Daily [START ON 03/24/2025] insulin lispro 0-30 Units Subcutaneous Q4H VIGNESH metoprolol 10 mg Intravenous Q6H VIGNESH piperacillin-tazobactam (ZOSYN) extended infusion 3.375 g Intravenous Q8H potassium chloride SA 20 mEq Oral Once potassium chloride SA 20 mEq Oral Once Continuous Infusions: Adult TPN dextrose dextrose 5% lactated ringers 125 mL/hr (03/23/25 0944) lactated Ringers Nutrient Depleting Medications: No chronic use of nutrient depleting medications noted. Home Medications Reviewed: Yes Estimated Needs: Per NST Assessed By: Luana Neri, MS, RD, LD Associated Problem(s): Diverticulitis of colon with perforation 59 yo female who [facility] with worsening abdominal pain for a week. CT A/P: acute sigmoid diverticulitis with kay perforation and pelvic phlegmon, measuring 9.5 x 3.5cm 03/16: S/p ex-lap with diverting sigmoid colostomy and abdominal washout 03/22 CT A/P:Postoperative fluid collections in the pelvis which may represent developing abscesses IR consulted by surgery for pelvic drain 03/[address] drain d/t location of fluid collection IR reconsulted for re-evaluation of drain placement repeat CT pending 03/26 IR: S/p CT guided bilateral pelvic abscess drain placement (10 Fr x 2) Continue drains to bulb drainage Monitor and record output Flush and dressing changes per orders. Recommend continuing drain until output less than 10 ml/ 24 hours and/or imaging confirmation of fluid collection resolution. Care and management of drain per Surgery team Please re-consult IR prn drain complications or concerns Pt to follow up with Surgery as an outpatient, unless otherwise indicated, for which IR will need to be notified. IR will sign off Problem: Actual or potential alteration in health Goal: Absence of healthcare acquired conditions Outcome: Partially Met Goal: Knowledge of Interdisciplinary Plan of Care Outcome: Partially Met Goal: Knowledge of Enviroment Outcome: Partially Met Problem: Pain Goal: Reduced pain sensation Outcome: Partially Met Goal: Control of acute pain to acceptable level Outcome: Partially Met Goal: Able to cope with pain Outcome: Partially Met Goal: Able to achieve maximum level of physical functioning Outcome: Partially Met Goal: Able to achieve maximum level of psychosocial functioning Outcome: Partially Met Problem: Pressure Injury, Risk of Goal: Absence of pressure injury Outcome: Partially Met Problem: Falls, Risk of Goal: Absence of falls Outcome: Partially Met Goal: Absence of physical injury Outcome: Partially Met Problem: Actual or potential alteration in health Goal: Absence of healthcare acquired conditions Outcome: Partially Met Goal: Knowledge of Interdisciplinary Plan of Care Outcome: Partially Met Goal: Knowledge of Enviroment Outcome: Partially Met Problem: Pain Goal: Reduced pain sensation Outcome: Partially Met Goal: Control of acute pain to acceptable level Outcome: Partially Met Goal: Able to cope with pain Outcome: Partially Met Goal: Able to achieve maximum level of physical functioning Outcome: Partially Met Goal: Able to achieve maximum level of psychosocial functioning Outcome: Partially Met Problem: Pressure Injury, Risk of Goal: Absence of pressure injury Outcome: Partially Met Problem: Falls, Risk of Goal: Absence of falls Outcome: Partially Met Goal: Absence of physical injury Outcome: Partially Met Problem: Actual or potential alteration in health Goal: Absence of healthcare acquired conditions Outcome: Partially Met Goal: Knowledge of Interdisciplinary Plan of Care Outcome: Partially Met Goal: Knowledge of Enviroment Outcome: Partially Met Problem: Pain Goal: Reduced pain sensation Outcome: Partially Met Goal: Control of acute pain to acceptable level Outcome: Partially Met Goal: Able to cope with pain Outcome: Partially Met Goal: Able to achieve maximum level of physical functioning Outcome: Partially Met Goal: Able to achieve maximum level of psychosocial functioning Outcome: Partially Met Problem: Pressure Injury, Risk of Goal: Absence of pressure injury Outcome: Partially Met Problem: Falls, Risk of Goal: Absence of falls Outcome: Partially Met Goal: Absence of physical injury Outcome: Partially Met PET stress test is significantly abnormal and suggestive of LAD disease. Although the defect is mostly fixed there is some wall motion and decent blood flow in that distribution at rest suggesting this could be resting ischemia. In summary I think she needs a heart catheterization but it is not urgent and she is asymptomatic and still quite ill from her recent surgery. Will follow over the weekend but probably cath next week. Problem: Actual or potential alteration in health Goal: Absence of healthcare acquired conditions Outcome: Partially Met Goal: Knowledge of Interdisciplinary Plan of Care Outcome: Partially Met Goal: Knowledge of Enviroment Outcome: Partially Met Problem: Pain Goal: Reduced pain sensation Outcome: Partially Met Goal: Control of acute pain to acceptable level Outcome: Partially Met Goal: Able to cope with pain Outcome: Partially Met Goal: Able to achieve maximum level of physical functioning Outcome: Partially Met Goal: Able to achieve maximum level of psychosocial functioning Outcome: Partially Met Problem: Pressure Injury, Risk of Goal: Absence of pressure injury Outcome: Partially Met Problem: Falls, Risk of Goal: Absence of falls Outcome: Partially Met Goal: Absence of physical injury Outcome: Partially Met Stoma note: -spoke to RN, no function yet -pt very uncomfortable today -currently sleeping -she was not disturbed Medone: Called for intermittent tachycardia in 140s. Asymptomatic. EKGs do look sinus tach. Continue to monitor, replace lytes No change from prior charted assessment, patient in stable condition for transport. OPERATIVE REPORT PATIENT Jose Lind CSN: [id number] : 1965 DATE OF PROCEDURE: 03/16/25 This is a Clinic Surgery Case CLINIC SURGEON: Tamica Palm MD STAFF SURGEON: Lavinia Carrillo MD FLOOR ASSEMBLER: Catherine Santoro DO PREOPERATIVE DIAGNOSES Perforated sigmoid diverticulitis with abscess POSTOPERATIVE DIAGNOSES Hinchey III perforated rectosigmoid diverticulitis PROCEDURE Exploratory laparotomy, diverting sigmoid colostomy, abdominal washout ANESTHESIA General INDICATIONS Jose Lind is a 59 y.o. female with history of former smoker, s/p breast reduction, colon polyps, diverticulitis who [facility] with worsening abdominal pain for a week. CT scan demonstrated free air diffusely in the abdomen as well as an abscess adjacent to sigmoid diverticulitis. The patient was peritoneal on exam. We discussed proceeding to the OR for a possible sigmoid colectomy versus abdominal washout versus colostomy. She agreed to proceed and understood the need for further operation in the future. We discussed the risk versus benefits of exploratory laparotomy with possible resection and possible ostomy FINDINGS Densely inflamed rectosigmoid and low rectum, purulent peritonitis. No site of perforation was able to be visualized DESCRIPTION OF PROCEDURE The patient was brought to the OR and laid supine. She was induced under general anesthesia without incident. The abdomen was prepped and draped in the usual sterile fashion. A timeout was performed using patient identifiers and a safety checklist. We began by making a low midline laparotomy. Skin was incised using a #10 scalpel. Subcutaneous tissue was dissected through with Bovie electrocautery. Purulence was immediately encountered upon entering the abdomen. There was a large fibroid on the uterus. Purulence was suctioned out of the abdomen and I proceeded to identify structures. It appeared that the left fallopian tube was adhered quite densely to the anterior wall of the rectosigmoid colon. We were able to free this off the colon but needed to transect part of the fallopian tube in order to do this using Bovie electrocautery. We bluntly broke up loculations and the purulence down to the pelvis and the abdomen. Once I was able to reach down to palpate the rectum it was noted that down through the low rectum was very inflamed and hard. I was unable to visualize where the perforation was on the colon. Small bowel appeared healthy. We decided that undertaking dissection of the low rectum while it was in the state would be risky to any future plans for resection and would prevent us from performing a bailout procedure that would allow the patient options in the future. We thus decided to divert and washout the abdomen without any resection. We freed the sigmoid colon up enough to reach the anterior abdominal wall. We then made a circular incision in the skin on the left side over the rectus muscle and dissected down to the fascia. Here we made a cruciate incision in the fascia and spread through rectus muscle. We brought the sigmoid loop up through this defect and placed a katlin through the mesentery just under the colon in order to stabilize it in place. We then inspected the abdomen again ensuring that there were no further pockets of purulence. We irrigated out the abdominal cavity using warm saline and suctioned this out. We then closed the fascia using a running 1-0 Vicryl. The skin was closed using skin nichol. I then turned my attention the ostomy. I open the loop and used 3-0 Vicryl pops to secure it to the skin. The patient was woken from general anesthesia without incident and transferred to the PACU in stable condition. Counts were correct x 2 ESTIMATED BLOOD LOSS 30cc COMPLICATIONS none DRAINS none SPECIMENS none Tamica Palm Surgery PGY5 03/16/25 Cosigned by Lavinia Carrillo MD at 03/24/2025 8:52 AM EDT documented in this encounter [facility] 03-31-2025 Note [facility] Inpatient Pro lokesh Note 03/31/2025 Jose Lind 1965 [id number] Assessment/Plan: Jose Lind is a 59 y.o. female with a history of diverticulosis who presented to [place] ED for abdominal pain, distention found to have perforated diverticulitis. [facility]25 for general surgery evaluation. S/p Ex-lap with bowel resection and ostomy 03/16/25 (Dr. Carrillo, ). Hospital course complicated by post-op ileus, intermittent tachycardia, and abnormal stress test. Diverticulitis with Perforation: With acute onset of abdominal pain 03/15/25. CTAP 03/16/25 showed acute sigmoid diverticulitis with perforation, pelvic phlegmon. S/p ex-lap with bowel resection and ostomy 03/16/25 (Dr. Carrillo, ). Repeat CTAP 03/22/25 showed developing abscesses in the pelvis, noted again on CT A/P 03/26/25. S/p drain placement with IR 03/26/25, fluid culture 03/26/25 with B ovatus (B fragilis). Continued Zosyn. Repeat CT A/P 03/30/25. GS following. Intermittent Tachycardia: likely multifactorial from pain, stress, electrolyte disturbance, infection, possible ischemic component. HR up to 130-140's intermittently. Multiple EKGs have shown SVT, atrial tachycardia, sinus tachycardia, PVCs. TTE 03/19/25 EF 43%, global hypokinesis. Cardiology followed, initiated BB. Abnormal stress test: PET stress 03/20/25 significantly abnormal and suggestive of LAD disease. 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 Cardiology followed, recommend OP follow up for evaluation of LHC. Postop Ileus: KUB 03/17/25 with possible postoperative ileus vs low grade partial SBO. Required NG tube. Required TPN 03/23-03/27/25. Improved. GS following. Incidental pulmonary nodule: CCTA with sub centimeter LLL nodule, recommend re-imaging in 12mo as OP. Code status: Full code DVT Prophylaxis: Lovenox Current living situation: Home Expected Disposition: Same Estimated discharge date: TBD, possibly 04/01/25? Pending GS recs Medically Ready for Discharge: No Subjective: Pt seen and examined. Pt sitting comfortably and no overnights events reported. Plan of care updated and pt agreeable: - S/p b/l pelvic IR drain placement 03/26/25, L drain removed 03/31, planning for R drain removal 04/01 - Pt tolerating low fiber diet, TPN stopped 03/27/25 I personally discussed case with CM and plan for discharge discussed post drain pull likely tomorrow. I personally reviewed imaging and CT AP w/IC contrast on 03/30 with near resolution of fluid collection seen. Physical Exam: BP 113/75 Pulse 65 Temp 97.9 degrees F (36.6 degrees C) (Oral) Resp 14 Ht 5' 10 Wt 78.2 kg (172 lb 6.4 oz) SpO2 97% BMI 24.74 kg/m General: NAD Eyes: EOMI, sclera clear ENT: neck supple Cardiovascular: Regular rate, no murmur Respiratory: Clear to auscultation, symmetric air entry Gastrointestinal: Soft, non distended, positive bowel sounds. Midline incisions well appearing. Ostomy in place. Genitourinary: no CVA tenderness Musculoskeletal: no major joint deformity Skin: warm, dry, no LE edema Neuro: Alert, oriented x3, no focal motor deficits Psych: Mood appropriate Current Medications: aspirin 81 mg Oral Daily atorvastatin 40 mg Oral Nightly cyclobenzaprine 10 mg Oral Q8H [facility] enoxaparin (LOVENOX) injection 40 mg Subcutaneous Daily metoprolol tartrate 50 mg Oral BID polyethylene glycol 17 g Oral Daily senna-docusate 1 tablet Oral BID sodium chloride (PF) 10 mL Intracatheter Q8H [facility] Labs, Imaging and Studies reviewed: Results from last 7 days Lab Units 03/31/25 0511 03/30/25 0505 03/29/25 0242 WBC K/mcL 6.62 7.79 8.91 HGB g/dL 11.0* 11.6* 11.9* HCT % 34.8* 35.3* 37.3 PLT K/mcL 506* 546* 528* Results from last 7 days Lab Units 03/31/25 0511 03/30/25 0505 03/29/25 0242 SODIUM mmol/L 134* 135 137 POTASSIUM mmol/L 4.0 3.9 4.5 CHLORIDE mmol/L 100 101 99 BICARB mmol/L 27 25 26 BUN mg/dL 8 7* 8 CREATININE mg/dL 0.54 0.57 0.61 EGFR mL/min/1.73 m2 106 104 102 GLUCOSE mg/dL 84 102* 100* CALCIUM mg/dL 8.5 8.9 8.8 PHOSPHORUS mg/dL 3.8 3.4 3.8 AUTHENTICATED BY RADHA GOODE, ON 03/31/2025 15:00:21 [facility] 03-31-2025 Note CLINIC SURGERY PROGR ESS NOTE Patient Name: Jose Lind ASSESSMENT AND PLAN Jose Lind is a 59 y.o. female with history of former smoker, s/p breast reduction, colon polyps, diverticulitis who [facility] with worsening abdominal pain for a week. OSH CTAP: acute sigmoid diverticulitis with kay perforation and pelvic phlegmon, measuring 9.5 x 3.5cm Perforated Diverticulitis Intraabdominal Abscess Seroma - S/p ex-lap with diverting sigmoid colostomy and abdominal washout on 03/16 - C/b abscess formation - S/p b/l pelvic IR drain placement 03/26/25, L drain removed 03/31, planning for R drain removal 04/01 - ET following, appreciate their assistance - Pt tolerating low fiber diet, TPN stopped 03/27/25 - zosyn, EOT 03/30 - PT/OT/CM for dispo - F/u drain cultures: Mixed enteric with mod growth of bacteroides ovatus - Ct improved 03/30 Madi Bryant, DO General Surgery Please contact surgical international project engineer professional caster 5PM-6AM and weekends - #[phone] SUBJECTIVE NAEO. Ostomy o/p appropriate. Pain improved. Drains now serous. Midline with small amount of fat necrosis PHYSICAL EXAM VITALS BP 113/75 Pulse 65 Temp 97.9 degrees F (36.6 degrees C) (Oral) Resp 14 Ht 5' 10 Wt 78.2 kg (172 lb 6.4 oz) SpO2 97% BMI 24.74 kg/m PHYSICAL EXAM General: Awake and alert, no acute distress Head: Normocephalic Eyes: EOM grossly intact Neck: Trachea midline Cardiovascular: Hemodynamically stable Pulmonary: Nonlabored breathing Extremities: No obvious deformities, warm and well perfused Skin: Dry and intact, no obvious rash Neurological: No gross focal deficits, answering questions appropriately GI: Abd soft, b/l lower abd mildly TTP, ostomy with pink mucosa w/ very small amount of stool in bag, C/D/I dressing, EULALIA x 2 serous, R a bit murky still IMAGING Recent diagnostic imaging/reports reviewed. Pertinent findings may be listed above. Please correlate with formal radiology reads. LABS Laboratory studies ordered and reviewed. Pertinent findings may be listed below: Hgb: 11 03/31/25 WBC: 6.62 03/31/25 Plts: 506 03/31/25 Na: 134 03/31/25 K: 4 03/31/25 Cr: 0.54 03/31/25 INR: - - 03/31/25 UA obtained: pending 03/31/25 AUTHENTICATED BY MADI BRYANT, ON 03/31/2025 11:53:02 [facility] 03-30-2025 Hospital Discharge instructions Dilia Barajas RN - 03/30/2025 6:18 PM EDT OSTOMY POUCH CHANGE: CURRENT SUPPLIES NEEDED: Scissors Washcloths or 4x4's to wash and dry skin Pattern and marker OR measuring guide Pouch: Coloplast [id number] or [id number] (flat pouch) Ring: Jewel 2 inch Powder: Convatec stomahesive powder Barrier film: Cavilon No sting barrier film Pouch change: -Gather all supplies listed, trace pattern provided onto paper backing of wafer, cut, and leaving at least 1/8 space between wafer barrier and stoma. -Remove old wafer/pouch and discard. -Remove the backing from wafer, apply cohesive ring to back of pouch or directly to skin surrounding stoma -Wash skin with soap and water, inspect skin for any irritation, rash, etc., -If skin appears red, irritated, or moist, use the A-B-C's of powder: Apply Stomahesive powder, [place] away the excess and then Crust over with No Sting Cavilon barrier. -Center wafer on stoma and press securely at the cut edge near the stoma, angling pouch in the direction desired for easy pouch emptying. -Close drain spout if not already done. -Place your hand on the wafer and warm the pouch to increase adhesion for 2 minutes Measure the stoma with the guide for the first 6 weeks, since the stoma will shrink in size. Please empty the pouch when 1/3 to 1/2 full and as needed into the toilet Change your pouching system every 3-4 days or as needed. Notify physician of any stoma or skin changes. If having issues with the skin or peristomal skin, call & make an appointment at the [facility] Also, some of the major ostomy supply companies such as [employer], [employer], and [employer] offer assistance programs. You must enroll in the companies assistance program. [employer] - https://meplus.BuyRentKenya.com.Daojia Tory - https://www.[employer].com/en/sign up [employer] - https://www.coloplast.us/care/ Additional resources for supplies: [employer]: www.ostogroup.org (will send supplies for the shipping cost only) [employer] ([employer] [place]): or www.uoaa.org www.Simple-Fill search: ostomy supplies ([employer] does NOT take insurance) www.fowusa.Red [employer]Goon [employer], www.ostomyangels.com, www.stomabags.Daojia or supplies for non or uninsured Please call the ET combat systems officer if you have any questions regarding your ostomy at [phone]. You may also call our ostomy clinic to set up an appointment to be seen by an ET RN if you have any questions or issues concerning the care of your ostomy at [phone]. Our clinic is located in the [facility], [address] [place] [address], [address] The following attachments cannot be sent through Care Everywhere.Surgical Drain Care (Citizen Of [place])documented in this encounter [facility] 03-30-2025 [facility] 03/30/2025 Jose Lind 1965 [id number] Assessment/Plan: Jose Lind is a 59 y.o. female with a history of diverticulosis who presented to [place] ED for abdominal pain, distention found to have perforated diverticulitis. [facility]25 for general surgery evaluation. S/p ex-lap with bowel resection and ostomy 03/16/25 (Dr. Carrillo, ). Hospital course complicated by post-op ileus, intermittent tachycardia, and abnormal stress test. Diverticulitis with Perforation: With acute onset of abdominal pain 03/15/2025. CTAP 03/16/2025 showed acute sigmoid diverticulitis with perforation, pelvic phlegmon. S/p ex-lap with bowel resection and ostomy 03/16/25 (Dr. Carrillo, ). Repeat CTAP 03/22/2025 showed developing abscesses in the pelvis, noted again on CT A/P 03/26/2025. S/p drain placement with IR 03/26/2025, fluid culture 03/26/2025 with B ovatus (B fragilis). Continued Zosyn. Repeat CT A/P 03/30/2025. GS following. Intermittent Tachycardia: likely multifactorial from pain, stress, electrolyte disturbance, infection, possible ischemic component. With HR up to 130-140's intermittently. Multiple EKGs have shown SVT, atrial tachycardia, sinus tachycardia, PVCs. TTE 03/19/25 EF 43%, global hypokinesis. Cardiology followed, initiated BB. Abnormal stress test: PET stress 03/20/25 significantly abnormal and suggestive of LAD disease. 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 Cardiology followed, recommend OP follow up for evaluation of LHC. Postoperative Ileus: KUB 03/17/25 with possible postoperative ileus vs low grade partial SBO. Required NG tube. Required TPN 03/23-03/27/2025. Improved. GS following. Incidental pulmonary nodule: CCTA with sub centimeter LLL nodule, recommend re-imaging in 12mo as OP. Code status: Full code DVT Prophylaxis: Lovenox Current living situation: Home Expected Disposition: Same Estimated discharge date: TBD, possibly 04/01/2025? Pending recs Medically Ready for Discharge: No Subjective: Patient seen examined, resting in bed this morning. Reports doing okay so far. No dyspnea, chest pain. Had been tolerating PO yesterday, does not overeat. No abdominal pain. Evaluated in ostomy with patient, she is now having stool output. Discussed with GS, still recommends CT to evaluate interval changes to lower pelvic abscess. Continued IV Zosyn. GS following. Physical Exam: BP 104/65 Pulse 74 Temp 98 degrees F (36.7 degrees C) (Oral) Resp 16 Ht 5' 10 Wt 78.9 kg (174 lb) SpO2 92% BMI 24.97 kg/m General: NAD Eyes: EOMI, sclera clear ENT: neck supple Cardiovascular: Regular rate, no murmur Respiratory: Clear to auscultation, symmetric air entry Gastrointestinal: Soft, non distended, positive bowel sounds. Midline incisions well appearing. Ostomy in place. Genitourinary: no CVA tenderness Musculoskeletal: no major joint deformity Skin: warm, dry, no LE edema Neuro: Alert, oriented x3, no focal motor deficits Psych: Mood appropriate Current Medications: aspirin 81 mg Oral Daily atorvastatin 40 mg Oral Nightly cyclobenzaprine 10 mg Oral Q8H VIGNESH enoxaparin (LOVENOX) injection 40 mg Subcutaneous Daily metoprolol tartrate 50 mg Oral BID piperacillin-tazobactam (ZOSYN) extended infusion 3.375 g Intravenous Q8H polyethylene glycol 17 g Oral Daily senna-docusate 1 tablet Oral BID sodium chloride (PF) 10 mL Intracatheter Q8H [facility] Labs, Imaging and Studies reviewed: Results from last 7 days Lab Units 03/30/25 0505 03/29/25 0242 03/28/25 0529 WBC K/mcL 7.79 8.91 9.91 HGB g/dL 11.6* 11.9* 11.2* HCT % 35.3* 37.3 34.7* PLT K/mcL 546* 528* 471* Results from last 7 days Lab Units 03/30/25 0505 03/29/25 0242 03/28/25 0529 03/27/25 0527 03/26/25 0413 SODIUM mmol/L 135 137 134* < > 133* POTASSIUM mmol/L 3.9 4.5 4.4 < > 4.5 CHLORIDE mmol/L 101 99 97* < > 101 BICARB mmol/L 25 26 23 < > 23 BUN mg/dL 7* 8 12 < > 9 CREATININE mg/dL 0.57 0.61 0.52 < > 0.47 EGFR mL/min/1.73 m2 104 102 107 < > 109 GLUCOSE mg/dL 102* 100* 85 < > 108* CALCIUM mg/dL 8.9 8.8 8.8 < > 8.4 PHOSPHORUS mg/dL 3.4 3.8 -- -- 3.0 < > = values in this interval not displayed. Results from last 7 days Lab Units 03/24/25 0418 ALT U/L 9 AST U/L 21 ALK PHOS U/L 76 BILIRUBIN TOTAL mg/dL 0.8 AUTHENTICATED BY LEW GROSS, ON 03/30/2025 12:22:37 [facility] 03-30-2025 Note CLINIC SURGERY PROGR ESS NOTE Patient Name: Jose Lind ASSESSMENT AND PLAN Jose Lind is a 59 y.o. female with history of former smoker, s/p breast reduction, colon polyps, diverticulitis who [facility] with worsening abdominal pain for a week. OSH CTAP: acute sigmoid diverticulitis with kay perforation and pelvic phlegmon, measuring 9.5 x 3.5cm Perforated Diverticulitis - S/p ex-lap with diverting sigmoid colostomy and abdominal washout on 03/16 - C/b abscess formation - S/p b/l pelvic IR drain placement 03/26/25 - ET following, appreciate their assistance - Pt tolerating low fiber diet, TPN stopped 03/27/25 - No significant ostomy output past 48 hours, will contbowel reg - zosyn, EOT 03/30 - PT/OT/CM for dispo - F/u drain cultures: Mixed enteric with mod growth of bacteroides ovatus - Repeat CT w/ PO today Madi Bryant, DO General Surgery Please contact surgical international project engineer professional caster 5PM-6AM and weekends - #[phone] SUBJECTIVE NAEO. Still no ostomy o/p for last 48h. L drain w/ 55 of seropurulent o/p. R drain w/ 53 of serous o/p. Discussed plans to rescan to eval for abscess drainage and any reason for ostomy o/p to be slowed PHYSICAL EXAM VITALS BP 111/71 Pulse 65 Temp 97.4 degrees F (36.3 degrees C) (Oral) Resp 15 Ht 5' 10 Wt 78.9 kg (174 lb) SpO2 90% BMI 24.97 kg/m PHYSICAL EXAM General: Awake and alert, no acute distress Head: Normocephalic Eyes: EOM grossly intact Neck: Trachea midline Cardiovascular: Hemodynamically stable Pulmonary: Nonlabored breathing Extremities: No obvious deformities, warm and well perfused Skin: Dry and intact, no obvious rash Neurological: No gross focal deficits, answering questions appropriately GI: Abd soft, b/l lower abd mildly TTP, ostomy with pink mucosa w/ very small amount of stool in bag, C/D/I dressing, EULALIA x 2 w/ seropurulent fluid IMAGING Recent diagnostic imaging/reports reviewed. Pertinent findings may be listed above. Please correlate with formal radiology reads. LABS Laboratory studies ordered and reviewed. Pertinent findings may be listed below: Hgb: 11.6 03/30/25 WBC: 7.79 03/30/25 Plts: 546 03/30/25 Na: 135 03/30/25 K: 3.9 03/30/25 Cr: 0.57 03/30/25 INR: - - 03/30/25 UA obtained: pending 03/30/25 AUTHENTICATED BY MADI BRYANT, ON 03/30/2025 09:32:00 [facility] 03-29-2025 Note CLINIC SURGERY PROGR ESS NOTE Patient Name: Jose Lind ASSESSMENT AND PLAN Jose Lind is a 59 y.o. female with history of former smoker, s/p breast reduction, colon polyps, diverticulitis who [facility] with worsening abdominal pain for a week. OSH CTAP: acute sigmoid diverticulitis with kay perforation and pelvic phlegmon, measuring 9.5 x 3.5cm Perforated Diverticulitis - S/p ex-lap with diverting sigmoid colostomy and abdominal washout on 03/16 - C/b abscess formation - S/p b/l pelvic IR drain placement 03/26/25 - ET following, appreciate their assistance - Pt tolerating low fiber diet, TPN stopped 03/27/25 - No significant ostomy output past 24 hours, will add bowel reg - Cont zosyn, EOT 03/30 - PT/OT/CM for dispo - F/u drain cultures: Mixed enteric with mod growth of bacteroides ovatus Dilia Wheeler Ii, MD General Surgery Please contact surgical international project engineer professional caster 5PM-6AM and weekends - [phone] SUBJECTIVE NAEO. Pain is slightly better with muscle relaxer, still mostly at drains with R>L. Tolerated some food yesterday, still lower intake than usual for her PHYSICAL EXAM VITALS BP 107/75 Pulse 65 Temp 97.9 degrees F (36.6 degrees C) (Oral) Resp 14 Ht 5' 10 Wt 78.9 kg (174 lb) SpO2 94% BMI 24.97 kg/m PHYSICAL EXAM General: Awake and alert, no acute distress Head: Normocephalic Eyes: EOM grossly intact Neck: Trachea midline Cardiovascular: Hemodynamically stable Pulmonary: Nonlabored breathing Extremities: No obvious deformities, warm and well perfused Skin: Dry and intact, no obvious rash Neurological: No gross focal deficits, answering questions appropriately GI: Abd soft, b/l lower abd mildly TTP, ostomy with pink mucosa w/ very small amount of stool in bag, C/D/I dressing, EULALIA x 2 w/ seropurulent fluid IMAGING Recent diagnostic imaging/reports reviewed. Pertinent findings may be listed above. Please correlate with formal radiology reads. LABS Laboratory studies ordered and reviewed. Pertinent findings may be listed below: Hgb: 11.9 03/29/25 WBC: 8.91 03/29/25 Plts: 528 03/29/25 Na: 137 03/29/25 K: 4.5 03/29/25 Cr: 0.61 03/29/25 INR: - - 03/29/25 UA obtained: pending 03/29/25 AUTHENTICATED BY DILIA WHEELER II, ON 03/29/2025 11:52:24 [facility] 03-29-2025 Note [facility] Inpatient Pro lokesh Note 03/29/2025 Jose Lind 1965 [id number] Assessment/Plan: Jose Lind is a 59 y.o. female with a history of diverticulosis who presented to [place] ED for abdominal pain, distention found to have perforated diverticulitis. [facility]25 for general surgery evaluation. S/p ex-lap with bowel resection and ostomy 03/16/25 (Dr. Carrillo, ). Hospital course complicated by post-op ileus, intermittent tachycardia, and abnormal stress test. Diverticulitis with Perforation: With acute onset of abdominal pain 03/15/2025. CTAP 03/16/2025 showed acute sigmoid diverticulitis with perforation, pelvic phlegmon. S/p ex-lap with bowel resection and ostomy 03/16/25 (Dr. Carrillo, ). Repeat CTAP 03/22/2025 showed developing abscesses in the pelvis, noted again on CT A/P 03/26/2025. S/p drain placement with IR 03/26/2025, fluid culture 03/26/2025 with B ovatus (B fragilis). Continued Zosyn. GS following. Intermittent Tachycardia: likely multifactorial from pain, stress, electrolyte disturbance, infection, possible ischemic component. With HR up to 130-140's intermittently. Multiple EKGs have shown SVT, atrial tachycardia, sinus tachycardia, PVCs. TTE 03/19/25 EF 43%, global hypokinesis. Cardiology followed, initiated BB. Abnormal stress test: PET stress 03/20/25 significantly abnormal and suggestive of LAD disease. 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 Cardiology followed, recommend OP follow up for evaluation of LHC. Postoperative Ileus: KUB 03/17/25 with possible postoperative ileus vs low grade partial SBO. Required NG tube. Required TPN 03/23-03/27/2025. Improved. GS following. Incidental pulmonary nodule: CCTA with sub centimeter LLL nodule, recommend re-imaging in 12mo as OP. Code status: Full code DVT Prophylaxis: Lovenox Current living situation: Home Expected Disposition: Same Estimated discharge date: TBD, possibly 04/01/2025? Pending GS recs Medically Ready for Discharge: No Subjective: Patient seen examined, resting in bed this morning. Reports doing okay at present. Has had very little fecal material as output of ostomy. Denies dyspnea, chest pain. No nausea or vomiting. Denies abdominal pain. She is tolerating PO - did have some acid reflux yesterday, none today so far. Yesterday she did eat some of her meals in the hospital, few bites of [employer]; states she is taking it slow as she is worried about obstruction. Continue IV Zosyn. KUB 03/28/2025 with epigastric distention measuring up to 3.8 cm, possible obstruction/ileus; stable from prior exam. GS following, added bowel regimen. Physical Exam: BP 107/75 Pulse 65 Temp 97.9 degrees F (36.6 degrees C) (Oral) Resp 14 Ht 5' 10 Wt 78.9 kg (174 lb) SpO2 94% BMI 24.97 kg/m General: NAD Eyes: EOMI, sclera clear ENT: neck supple Cardiovascular: Regular rate, no murmur Respiratory: Clear to auscultation, symmetric air entry Gastrointestinal: Soft, non distended, positive bowel sounds. Midline incisions well appearing. Ostomy in place. Genitourinary: no CVA tenderness Musculoskeletal: no major joint deformity Skin: warm, dry, no LE edema Neuro: Alert, oriented x3, no focal motor deficits Psych: Mood appropriate Current Medications: aspirin 81 mg Oral Daily atorvastatin 40 mg Oral Nightly cyclobenzaprine 10 mg Oral Q8H VIGNESH enoxaparin (LOVENOX) injection 40 mg Subcutaneous Daily metoprolol tartrate 50 mg Oral BID piperacillin-tazobactam (ZOSYN) extended infusion 3.375 g Intravenous Q8H polyethylene glycol 17 g Oral Daily senna-docusate 1 tablet Oral BID sodium chloride (PF) 10 mL Intracatheter Q8H [facility] Labs, Imaging and Studies reviewed: Results from last 7 days Lab Units 03/29/25 0242 03/28/25 0529 03/27/25 0527 WBC K/mcL 8.91 9.91 13.51* HGB g/dL 11.9* 11.2* 11.7* HCT % 37.3 34.7* 37.1 PLT K/mcL 528* 471* 488* Results from last 7 days Lab Units 03/29/25 0242 03/28/25 0529 03/27/25 0527 03/26/25 0413 03/24/25 1604 03/24/25 0418 SODIUM mmol/L 137 134* 131* 133* < > 135 POTASSIUM mmol/L 4.5 4.4 4.8 4.5 < > 3.9 CHLORIDE mmol/L 99 97* 99 101 < > 101 BICARB mmol/L 26 23 24 23 < > 26 BUN mg/dL 8 12 10 9 < > 5* CREATININE mg/dL 0.61 0.52 0.48 0.47 < > 0.48 EGFR mL/min/1.73 m2 102 107 109 109 < > 109 GLUCOSE mg/dL 100* 85 89 108* < > 110* CALCIUM mg/dL 8.8 8.8 8.3* 8.4 < > 8.5 PHOSPHORUS mg/dL 3.8 -- -- 3.0 -- 2.7 < > = values in this interval not displayed. Results from last 7 days Lab Units 03/24/25 0418 ALT U/L 9 AST U/L 21 ALK PHOS U/L 76 BILIRUBIN TOTAL mg/dL 0.8 AUTHENTICATED BY LEW GROSS, ON 03/29/2025 13:36:33 [facility] 03-28-2025 Note CLINIC SURGERY PROGR ESS NOTE Patient Name: Jose Lind ASSESSMENT AND PLAN Jose Lind is a 59 y.o. female with history of former smoker, s/p breast reduction, colon polyps, diverticulitis who [facility] with worsening abdominal pain for a week. OSH CTAP: acute sigmoid diverticulitis with kay perforation and pelvic phlegmon, measuring 9.5 x 3.5cm Perforated Diverticulitis - S/p ex-lap with diverting sigmoid colostomy and abdominal washout on 03/16 - C/b abscess formation - S/p b/l pelvic IR drain placement 03/26/25 - ET following, appreciate their assistance - Pt tolerating low fiber diet, TPN stopped 03/27/25 - Cont zosyn, EOT 03/30 - PT/OT/CM for dispo - F/u drain cultures: Mixed enteric with mod growth of bacteroides ovatus Dilia Wheeler Ii, MD General Surgery Please contact surgical international project engineer professional caster 5PM-6AM and weekends - [phone] SUBJECTIVE NAEO. Pain generally controlled, can be more severe at times at drain insertion sites, but rest of abdomen is improving still. No nausea. Tolerated diet yesterday but didn't eat too much, wants to eat more today. PHYSICAL EXAM VITALS BP 125/74 Pulse 66 Temp 97.6 degrees F (36.4 degrees C) (Oral) Resp 14 Ht 5' 10 Wt 78.9 kg (174 lb) SpO2 94% BMI 24.97 kg/m PHYSICAL EXAM General: Awake and alert, no acute distress Head: Normocephalic Eyes: EOM grossly intact Neck: Trachea midline Cardiovascular: Hemodynamically stable Pulmonary: Nonlabored breathing Extremities: No obvious deformities, warm and well perfused Skin: Dry and intact, no obvious rash Neurological: No gross focal deficits, answering questions appropriately GI: Abd soft, b/l lower abd mildly TTP, ostomy with pink mucosa w/ stool o/p, C/D/I dressing, EULALIA x 2 w/ seropurulent fluid IMAGING Recent diagnostic imaging/reports reviewed. Pertinent findings may be listed above. Please correlate with formal radiology reads. LABS Laboratory studies ordered and reviewed. Pertinent findings may be listed below: Hgb: 11.2 03/28/25 WBC: 9.91 03/28/25 Plts: 471 03/28/25 Na: 134 03/28/25 K: 4.4 03/28/25 Cr: 0.52 03/28/25 INR: - - 03/28/25 UA obtained: pending 03/28/25 AUTHENTICATED BY DILIA WHEELER II, ON 03/28/2025 14:37:40 [facility] 03-28-20[facility] 03/28/2025 Jose Lind 1965 [id number] Assessment/Plan: Jose Lind is a 59 y.o. female with a history of diverticulosis who presented to [place] ED for abdominal pain, distention found to have perforated diverticulitis. [facility] 03/16/2025 for general surgery evaluation. S/p ex-lap with bowel resection and ostomy 03/16/25 (Dr. Carrillo, ). Hospital course complicated by post-op ileus, intermittent tachycardia, and abnormal stress test. Diverticulitis with Perforation: With acute onset of abdominal pain 03/15/2025. CTAP 03/16/2025 showed acute sigmoid diverticulitis with perforation, pelvic phlegmon. S/p ex-lap with bowel resection and ostomy 03/16/25 (Dr. Carrillo, ). Repeat CTAP 03/22/2025 showed developing abscesses in the pelvis, noted again on CT A/P 03/26/2025. S/p drain placement with IR 03/26/2025, fluid culture 03/26/2025 with normal vesta. Continued Zosyn. General Surgery following. Intermittent Tachycardia: likely multifactorial from pain, stress, electrolyte disturbance, infection, possible ischemic component. With HR up to 130-140's intermittently. Multiple EKGs have shown SVT, atrial tachycardia, sinus tachycardia, PVCs. TTE 03/19/25 EF 43%, global hypokinesis. Cardiology followed, initiated BB. Abnormal stress test: PET stress 03/20/25 significantly abnormal and suggestive of LAD disease. 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 Cardiology followed, recommend OP follow up for evaluation of LHC. Postoperative Ileus: KUB 03/17/25 with possible postoperative ileus vs low grade partial SBO. Required NG tube. Required TPN 03/23-03/27/2025. Improved. GS following. Incidental pulmonary nodule: CCTA with sub centimeter LLL nodule, recommend re-imaging in 12mo as OP. Code status: Full code DVT Prophylaxis: Lovenox Current living situation: Home Expected Disposition: Same Estimated discharge date: TBD, suspect 2 days pending GS recs Medically Ready for Discharge: No Subjective: Patient seen and examined, resting bed this morning. Ambulatory in room. Reports doing okay at present. Is tolerating PO diet so far. No significant nausea, vomiting. Has some abdominal soreness, otherwise is tolerating. No dyspnea, chest pain. Adjusted lab work. Discontinue telemetry overall. Not quite medically ready, but is medically progressing. Suspect KATIANA within a couple days. Continued IV Zosyn. Physical Exam: BP 118/84 (BP Location: Right arm, Patient Position: Sitting) Pulse 76 Temp 98.1 degrees F (36.7 degrees C) (Oral) Resp 14 Ht 5' 10 Wt 78.9 kg (174 lb) SpO2 94% BMI 24.97 kg/m General: NAD Eyes: EOMI, sclera clear ENT: neck supple Cardiovascular: Regular rate, no murmur Respiratory: Clear to auscultation, symmetric air entry Gastrointestinal: Soft, non distended, positive bowel sounds. Midline incisions well appearing. Ostomy in place. Genitourinary: no CVA tenderness Musculoskeletal: no major joint deformity Skin: warm, dry, no LE edema Neuro: Alert, oriented x3, no focal motor deficits Psych: Mood appropriate Current Medications: aspirin 81 mg Oral Daily atorvastatin 40 mg Oral Nightly cyclobenzaprine 10 mg Oral Q8H VIGNESH enoxaparin (LOVENOX) injection 40 mg Subcutaneous Daily metoprolol tartrate 50 mg Oral BID piperacillin-tazobactam (ZOSYN) extended infusion 3.375 g Intravenous Q8H sodium chloride (PF) 10 mL Intracatheter Q8H [facility] Labs, Imaging and Studies reviewed: Results from last 7 days Lab Units 03/28/25 0529 03/27/25 0527 03/26/25 0413 WBC K/mcL 9.91 13.51* 13.42* HGB g/dL 11.2* 11.7* 11.3* HCT % 34.7* 37.1 36.0 PLT K/mcL 471* 488* 400 Results from last 7 days Lab Units 03/28/25 0529 03/27/25 0527 03/26/25 0413 03/24/25 1604 03/24/25 0418 03/23/25 0424 SODIUM mmol/L 134* 131* 133* < > 135 135 POTASSIUM mmol/L 4.4 4.8 4.5 < > 3.9 3.6 CHLORIDE mmol/L 97* 99 101 < > 101 100 BICARB mmol/L 23 24 23 < > 26 27 BUN mg/dL 12 10 9 < > 5* 3* CREATININE mg/dL 0.52 0.48 0.47 < > 0.48 0.51 EGFR mL/min/1.73 m2 107 109 109 < > 109 107 GLUCOSE mg/dL 85 89 108* < > 110* 99 CALCIUM mg/dL 8.8 8.3* 8.4 < > 8.5 8.6 PHOSPHORUS mg/dL -- -- 3.0 -- 2.7 3.6 < > = values in this interval not displayed. Results from last 7 days Lab Units 03/24/25 0418 ALT U/L 9 AST U/L 21 ALK PHOS U/L 76 BILIRUBIN TOTAL mg/dL 0.8 AUTHENTICATED BY LEW GROSS, ON 03/28/2025 10:46:23 [facility] 03-27-2025 Note [facility] Inpatient Pro lokesh Note 03/27/2025 Jose Lind 1965 [id number] Assessment/Plan: Jose Lind is a 59 y.o. female with a history of diverticulosis who presented to [place] ED for abdominal pain, distention found to have perforated diverticulitis. [facility]/16/2025 for general surgery evaluation. S/p ex-lap with bowel resection and ostomy 03/16/25 (Dr. Carrillo, ). Hospital course complicated by post-op ileus, intermittent tachycardia, and abnormal stress test. Diverticulitis with Perforation: With acute onset of abdominal pain 03/15/2025. CTAP 03/16/2025 showed acute sigmoid diverticulitis with perforation, pelvic phlegmon. S/p ex-lap with bowel resection and ostomy 03/16/25 (Dr. Carrillo, ). Repeat CTAP 03/22/2025 showed developing abscesses in the pelvis, noted again on CT A/P 03/26/2025. S/p drain placement with IR 03/26/2025, fluid culture 03/26/2025 pending. Continued Zosyn. General Surgery following. Intermittent Tachycardia: likely multifactorial from pain, stress, electrolyte disturbance, infection, possible ischemic component. With HR up to 130-140's intermittently. Multiple EKGs have shown SVT, atrial tachycardia, sinus tachycardia, PVCs. TTE 03/19/25 EF 43%, global hypokinesis. Cardiology followed, initiated BB. Abnormal stress test: PET stress 03/20/25 significantly abnormal and suggestive of LAD disease. 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 Cardiology followed, recommend OP follow up for evaluation of LHC. Postoperative Ileus: KUB 03/17/25 with possible postoperative ileus vs low grade partial SBO. Required NG tube. Required TPN 03/23-03/27/2025. Improved. GS following. Incidental pulmonary nodule: CCTA with sub centimeter LLL nodule, recommend re-imaging in 12mo as OP. Code status: Full code DVT Prophylaxis: Lovenox Current living situation: Home Expected Disposition: Same Estimated discharge date: TBD Medically Ready for Discharge: No Subjective: Patient seen and examined, resting bed this morning. Reports feeling better today, has improved spirits as her diet was advanced and she is able to get PO. States after drain placement to her lower pelvic fluid collection, her lower pelvic abdominal pain has greatly improved. Currently without nausea. No chest pain, dyspnea. States she slept well last night. Discussed with CONTRACT SERVICEMAN, patient [place], no [facility] companies to service her area, likely can go home with new ostomy with the training she learns during this hospital stay alone. On TPN, needs close monitoring. AM Cr 0.48, K 4.8, Na 131. Continued IV Zosyn. GS following. Requiring IV opiates. Physical Exam: BP 127/85 (BP Location: Left arm, Patient Position: Lying) Pulse 82 Temp 97.7 degrees F (36.5 degrees C) (Oral) Resp 16 Ht 5' 10 Wt 78.9 kg (174 lb) SpO2 94% BMI 24.97 kg/m General: NAD Eyes: EOMI, sclera clear ENT: neck supple Cardiovascular: Regular rate, no murmur Respiratory: Clear to auscultation, symmetric air entry Gastrointestinal: Soft, non distended, positive bowel sounds. Midline incisions with nichol, mild erythema appears appropriate, no incisional drainage. Ostomy in place. Genitourinary: no CVA tenderness Musculoskeletal: no major joint deformity Skin: warm, dry, no LE edema Neuro: Alert, oriented x3, no focal motor deficits Psych: Mood appropriate Current Medications: aspirin 81 mg Oral Daily atorvastatin 40 mg Oral Nightly enoxaparin (LOVENOX) injection 40 mg Subcutaneous Daily insulin lispro 0-30 Units Subcutaneous Q4H [facility] metoprolol tartrate 50 mg Oral BID piperacillin-tazobactam (ZOSYN) extended infusion 3.375 g Intravenous Q8H sodium chloride (PF) 10 mL Intracatheter Q8H [facility] Labs, Imaging and Studies reviewed: Results from last 7 days Lab Units 03/27/2552603/26/2541203/25/25 0456 WBC K/mcL 13.51* 13.42* 11.06* HGB g/dL 11.7* 11.3* 11.5* HCT % 37.1 36.0 35.1* PLT K/mcL 488* 400 385 Results from last 7 days Lab Units 03/27/25 0503/26/25 0413 03/25/25 0456 03/24/25 1604 03/24/25 0418 03/23/25 0424 SODIUM mmol/L 131* 133* 134* -- 135 135 POTASSIUM mmol/L 4.8 4.5 4.3 < > 3.9 3.6 CHLORIDE mmol/L 99 101 103 -- 101 100 BICARB mmol/L 24 23 23 -- 26 27 BUN mg/dL 10 9 6* -- 5* 3* CREATININE mg/dL 0.48 0.47 0.45 -- 0.48 0.51 EGFR mL/min/1.73 m2 109 109 110 -- 109 107 GLUCOSE mg/dL 89 108* 106* -- 110* 99 CALCIUM mg/dL 8.3* 8.4 8.6 -- 8.5 8.6 PHOSPHORUS mg/dL -- 3.0 -- -- 2.7 3.6 < > = values in this interval not displayed. Results from last 7 days Lab Units 03/24/25 0418 ALT U/L 9 AST U/L 21 ALK PHOS U/L 76 BILIRUBIN TOTAL mg/dL 0.8 AUTHENTICATED BY LEW GROSS, ON 03/27/2025 12:07:34 [facility] 03-27-2025 Note CLINIC SURGERY PROGR ESS NOTE Patient Name: Jose Lind ASSESSMENT AND PLAN Jose Lind is a 59 y.o. female with history of former smoker, s/p breast reduction, colon polyps, diverticulitis who [facility] with worsening abdominal pain for a week. OSH CTAP: acute sigmoid diverticulitis with kay perforation and pelvic phlegmon, measuring 9.5 x 3.5cm Perforated Diverticulitis - S/p ex-lap with diverting sigmoid colostomy and abdominal washout on 03/16 - ET following, appreciate their assistance - Adv to low fiber - Cont zosyn, EOT 03/30 - PT/OT/CM for dispo - Ok to wean TPN today - F/u drain cultures Madi Bryant, DO General Surgery Please contact surgical international project engineer professional caster 5PM-6AM and weekends - #[phone] SUBJECTIVE NAEO. Pain greatly improved after IR drains. Ostomy working. Hungry this am. Review of Systems: All systems were reviewed and otherwise negative except for as noted above PHYSICAL EXAM VITALS BP 127/85 (BP Location: Left arm, Patient Position: Lying) Pulse 82 Temp 97.7 degrees F (36.5 degrees C) (Oral) Resp 16 Ht 5' 10 Wt 78.9 kg (174 lb) SpO2 94% BMI 24.97 kg/m PHYSICAL EXAM General: Awake and alert, no acute distress Head: Normocephalic Eyes: EOM grossly intact Neck: Trachea midline Cardiovascular: Hemodynamically stable Pulmonary: Nonlabored breathing Extremities: No obvious deformities, warm and well perfused Skin: Dry and intact, no obvious rash Neurological: No gross focal deficits, answering questions appropriately GI: Abd soft, b/l lower abd mildly TTP, ostomy with pink mucosa w/ stool o/p, C/D/I dressing, EULALIA x 2 w/ seropurulent fluid IMAGING Recent diagnostic imaging/reports reviewed. Pertinent findings may be listed above. Please correlate with formal radiology reads. LABS Laboratory studies ordered and reviewed. Pertinent findings may be listed below: Hgb: 11.7 03/27/25 WBC: 13.51 03/27/25 Plts: 488 03/27/25 Na: 131 03/27/25 K: 4.8 03/27/25 Cr: 0.48 03/27/25 INR: - - 03/27/25 UA obtained: pending 03/27/25 AUTHENTICATED BY MADI BRYANT, ON 03/27/2025 09:50:50 [facility]26[facility]26[facility]2025 Jose Lind 1965 [id number] Assessment/Plan: Jose Lind is a 59 y.o. female with a history of diverticulosis who presented to [place] ED for abdominal pain, distention found to have perforated diverticulitis. [facility]25 for general surgery evaluation. S/p ex-lap with bowel resection and ostomy 03/16/25 (Dr. Carrillo, ). Hospital course complicated by post-op ileus, intermittent tachycardia, and abnormal stress test. Diverticulitis with Perforation: With acute onset of abdominal pain 03/15/2025. CTAP 03/16/2025 showed acute sigmoid diverticulitis with perforation, pelvic phlegmon. S/p ex-lap with bowel resection and ostomy 03/16/25 (Dr. Carrillo, ). Repeat CTAP 03/22/2025 showed developing abscesses in the pelvis, noted again on CT A/P 03/26/2025. S/p drain placement with IR 03/26/2025. Continued Zosyn. General Surgery following. Intermittent Tachycardia: likely multifactorial from pain, stress, electrolyte disturbance, infection, possible ischemic component. With HR up to 130-140's intermittently. Multiple EKGs have shown SVT, atrial tachycardia, sinus tachycardia, PVCs. TTE 03/19/25 EF 43%, global hypokinesis. Cardiology followed, initiated BB. Abnormal stress test: PET stress 03/20/25 significantly abnormal and suggestive of LAD disease. 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 Cardiology followed, recommend OP follow up for evaluation of LHC. Postoperative Ileus: KUB 03/17/25 with possible postoperative ileus vs low grade partial SBO. Required NG tube. TPN started 03/23/2025. Surgery managing. Incidental pulmonary nodule: CCTA with sub centimeter LLL nodule, recommend re-imaging in 12mo as OP. Code status: Full DVT Prophylaxis: Lovenox Current living situation: Home Expected Disposition: likely home, therapy consulted Estimated discharge date: TBD Medically Ready for Discharge: no - pending ileus and heart cath Subjective: Patient seen examined this morning, resting in bed. Reports feeling increasing pain in her lower pelvis, states worsened with full bladder. No dyspnea, chest pain. No nausea or vomiting. Interval CT A/P with persistent pelvic fluid collection. IR consulted for evaluation for drain placement. WBC 13, Hgb 11.3. Cr 0.47. Discussed with CONTRACT SERVICEMAN, patient is not medically ready. S/p drain placement 03/26/2025 with IR. Requiring IV opiates. Continued IV Zosyn. On TPN, needs close monitoring. GS following. Physical Exam: BP 105/61 (BP Location: Left arm, Patient Position: Lying) Pulse 71 Temp 99.4 degrees F (37.4 degrees C) (Oral) Resp (!) 24 Ht 5' 10 Wt 78.9 kg (174 lb) SpO2 95% BMI 24.97 kg/m General: NAD Eyes: EOMI, sclera clear ENT: neck supple Cardiovascular: Regular rate, no murmur Respiratory: Clear to auscultation, symmetric air entry Gastrointestinal: Soft, non distended, positive bowel sounds. Midline incision with nichol, mild postop erythema but no purulent drainage. Ostomy in place. Genitourinary: no CVA tenderness Musculoskeletal: no major joint deformity Skin: warm, dry, no LE edema Neuro: Alert, oriented x3, no focal motor deficits Psych: Mood appropriate Current Medications: aspirin 81 mg Oral Daily atorvastatin 40 mg Oral Nightly enoxaparin (LOVENOX) injection 40 mg Subcutaneous Daily insulin lispro 0-30 Units Subcutaneous Q4H [facility] metoprolol tartrate 50 mg Oral BID piperacillin-tazobactam (ZOSYN) extended infusion 3.375 g Intravenous Q8H sodium chloride (PF) 10 mL Intracatheter Q8H [facility] Labs, Imaging and Studies reviewed: Results from last 7 days Lab Units 03/26/253 03/25/256 03/24/25 0418 WBC K/mcL 13.42* 11.06* 8.11 HGB g/dL 11.3* 11.5* 11.7* HCT % 36.0 35.1* 37.2 PLT K/mcL 400 385 393 Results from last 7 days Lab Units 03/26/25 0413 03/25/25 0456 03/24/25 1604 03/24/25 0418 03/23/25 0424 SODIUM mmol/L 133* 134* -- 135 135 POTASSIUM mmol/L 4.5 4.3 4.2 3.9 3.6 CHLORIDE mmol/L 101 103 -- 101 100 BICARB mmol/L 23 23 -- 26 27 BUN mg/dL 9 6* -- 5* 3* CREATININE mg/dL 0.47 0.45 -- 0.48 0.51 EGFR mL/min/1.73 m2 109 110 -- 109 107 GLUCOSE mg/dL 108* 106* -- 110* 99 CALCIUM mg/dL 8.4 8.6 -- 8.5 8.6 PHOSPHORUS mg/dL 3.0 -- -- 2.7 3.6 Results from last 7 days Lab Units 03/24/258 ALT U/L 9 AST U/L 21 ALK PHOS U/L 76 BILIRUBIN TOTAL mg/dL 0.8 AUTHENTICATED BY LEW GROSS, ON 03/26/2025 17:10:34 [facility] 03-26-2025 Note Vascular & Intervent ional Radiology Provided By [facility] (Diagnostic Radiology, Interventional and Neurointerventional Radiology and Vascular Medicine) Interventional Radiology Department @ [facility]: [phone] 14/05 VIR physician contact: [phone]) Weekday VIR nurse practitioner contact @ [facility]: [phone] [facility]: [phone] [email or web address] HOUSING ASSISTANT DIRECTORY PROCEDURE: CT guided bilateral pelvic abscess drain placement (10 Fr x 2) PLAN: Drains to suction bulb drainage Samples submitted for analysis Record volume Q shift and PRN Routine dressing changes Remove drains once drainage volume is <10cc/day and/or imaging evidence of resolution PERTINENT IMAGING (if applicable): Date: 03/26/2025 Patient Name: Jose Lind Patient : 1965 Physician: Stan Desir Ea, DO Sedation Plan: Moderate ASA Classification: ASA 3 - Patient with moderate systemic disease with functional limitations Mallampati Classification: Class II: Partial uvula and soft palate are visualized [place] Protocol: Pre-Procedural verification: Correct patient, correct site and correct procedure confirmed. H&P or interval update complete and in medical record. Informed consent form completed and signed. Radiology images, labs and pathology reviewed with appropriate identifiers (when applicable). Site Marking: N/A Time Out: PERFORMED Complications: None Full report to follow AUTHENTICATED BY STAN DESIR EA, ON 03/26/2025 16:39:06 [facility] 03-26-2025 Procedure note Vascular & Interventional Radiology Provided By [facility] (Diagnostic Radiology, Interventional and Neurointerventional Radiology and Vascular Medicine) Interventional Radiology Department [facility]: [phone] 14/05 VIR physician contact: [phone]) Weekday VIR nurse practitioner contact @ [facility]: [phone] [facility]: [phone] [email or web address] [facility] ASSISTANT DIRECTORY PROCEDURE: CT guided bilateral pelvic abscess drain placement (10 Fr x 2) PLAN: Drains to suction bulb drainage Samples submitted for analysis Record volume Q shift and PRN Routine dressing changes Remove drains once drainage volume is <10cc/day and/or imaging evidence of resolution PERTINENT IMAGING (if applicable): Date: 03/26/2025 Patient Name: Jose Lind Patient : 1965 Physician: Stan Desir Ea, DO Sedation Plan: Moderate ASA Classification: ASA 3 - Patient with moderate systemic disease with functional limitations Mallampati Classification: Class II: Partial uvula and soft palate are visualized [place] Protocol: Pre-Procedural verification: Correct patient, correct site and correct procedure confirmed. H&P or interval update complete and in medical record. Informed consent form completed and signed. Radiology images, labs and pathology reviewed with appropriate identifiers (when applicable). Site Marking: N/A Time Out: PERFORMED Complications: None Full report to follow documented in this encounter [facility] 03-26-2025 Note CLINIC SURGERY PROGR ESS NOTE Patient Name: Jose Lind ASSESSMENT AND PLAN Jose Lind is a 59 y.o. female with history of former smoker, s/p breast reduction, colon polyps, diverticulitis who [facility] with worsening abdominal pain for a week. OSH CTAP: acute sigmoid diverticulitis with kay perforation and pelvic phlegmon, measuring 9.5 x 3.5cm Perforated Diverticulitis - S/p ex-lap with diverting sigmoid colostomy and abdominal washout on 03/16 - Ostomy w/ stool after ostomy katlin removal 03/23 - ET following, appreciate their assistance - NPO this am - Cardiology planning on heart cath, please hold for now as needs possible perc drain - Cont zosyn - PT/OT/CM for dispo - Ok to wean TPN pending IR findings - Rescan today w/ continued pelvic fluid, pt with worse pain this am, will ask IR to reeval for drainage Madi Bryant DO General Surgery Please contact surgical international project engineer professional caster 5PM-6AM and weekends - #[phone] SUBJECTIVE NAEO. Increased pelvic pain this am. CT w/ residual abscess. Discussed need for IR aspiration today. Ostomy functioning. Review of Systems: All systems were reviewed and otherwise negative except for as noted above PHYSICAL EXAM VITALS BP 99/75 (BP Location: Left arm, Patient Position: Lying) Pulse 75 Temp 99.4 degrees F (37.4 degrees C) (Oral) Resp 16 Ht 5' 10 Wt 78.9 kg (174 lb) SpO2 93% BMI 24.97 kg/m PHYSICAL EXAM General: Awake and alert, no acute distress Head: Normocephalic Eyes: EOM grossly intact Neck: Trachea midline Cardiovascular: Hemodynamically stable Pulmonary: Nonlabored breathing Extremities: No obvious deformities, warm and well perfused Skin: Dry and intact, no obvious rash Neurological: No gross focal deficits, answering questions appropriately GI: Abd soft, b/l lower abd TTP, ostomy with pink mucosa w/ stool o/p, C/D/I dressing, IMAGING Recent diagnostic imaging/reports reviewed. Pertinent findings may be listed above. Please correlate with formal radiology reads. LABS Laboratory studies ordered and reviewed. Pertinent findings may be listed below: Hgb: 11.3 03/26/25 WBC: 13.42 03/26/25 Plts: 400 03/26/25 Na: 133 03/26/25 K: 4.5 03/26/25 Cr: 0.47 03/26/25 INR: - - 03/26/25 UA obtained: pending 03/26/25 AUTHENTICATED BY MADI BRYANT, ON 03/26/2025 09:16:55 [facility] 03-26-2025 Consult note Associated Order (s): IP CONSULT TO INTERVENTIONAL RADIOLOGY Images from the original note were not included. [facility] Vascular & Interventional Radiology INTERVENTIONAL RADIOLOGY CONSULT NOTE The patient's chart to include history and physical, pertinent allergies, code status, laboratory and available pertinent imaging were reviewed. * Diverticulitis of colon with perforation Assessment & Plan 59 yo female who [facility]25 with worsening abdominal pain for a week. CT A/P: acute sigmoid diverticulitis with kay perforation and pelvic phlegmon, measuring 9.5 x 3.5cm 03/16: S/p ex-lap with diverting sigmoid colostomy and abdominal washout 03/22 CT A/P:Postoperative fluid collections in the pelvis which may represent developing abscesses IR consulted by surgery for pelvic drain 03/[address] drain d/t location of fluid collection 03/26: IR reconsulted for re-evaluation of drain placement repeat CT pending WBC at 13.42 from , continue to trend Will plan to attempt drain placement vs aspiration pending IR schedule NPO Hold all AC/AP The patient will be scheduled for the requested abscess drain placement vs aspiration. Procedure date and time for in-patients TBD by the [facility] control desk @ [phone] pending emergent cases and other scheduling demands. Please call the [facility] out-patient office @ [phone] (Option 0) if requested procedure is desired after discharge. Preprocedural needs: NPO 6 hours prior to planned procedure, DVT prophylaxis hold as per protocol, and antiplatelet medication hold as per protocol Pertinent Information: Antiplatelet/Anticoagulation: Aspirin 81 mg and Lovenox Code Status: Full Code Allergies: Patient has no known allergies. Laboratory: Laboratory 03/26/25 7:59 AM Radiology 03/26/25 7:59 AM Medications 03/26/25 7:59 AM Transcriptions 03/26/25 7:59 AM Lab Results Component Value Date BUN 9 03/26/2025 CREATININE 0.47 03/26/2025 EGFR 109 03/26/2025 BCR 19.1 03/26/2025 Lab Results Component Value Date PROTIME 14.2 03/16/2025 INR 1.1 03/16/2025 Lab Results Component Value Date WBC 13.42 (H) 03/26/2025 RBC 3.72 (L) 03/26/2025 HGB 11.3 (L) 03/26/2025 HCT 36.0 03/26/2025 PLT 400 03/26/2025 Pertinent image (if applicable): [facility] Tish-procedure lab value guideline: Table 1. LOW Bleeding Risk Laboratory Guidelines Low Bleeding Risk Procedures Target Laboratory Values3 Bone Marrow Biopsy [Platelet Count - N/A] Catheter exchanges (gastrostomy, biliary, nephrostomy, abscess, including gastrostomy/gastrojejunostomy conversions) CVC tunneled >/= 8 Fr* Diagnostic venography and select venous interventions: pelvis and extremities Dialysis shunt interventions IVC filter placement and removal Non-tunneled chest tube placement for pleural effusion Non-tunneled venous access and removal (including PICC placement) and Tunneled venous access </= 7 Fr Paracentesis Peripheral nerve blocks, joint, and musculoskeletal injections Sacroiliac joint injection and sacral lateral branch blocks Superficial abscess drainage or biopsy (palpable lesion, lymph node, soft tissue, breast, thyroid) Thoracentesis Trans jugular liver biopsy Trigger point injections including piriformis Tunneled drainage catheter placement* PT/INR < 3.0 Platelets > 20,000/mcL (Consider transfusing platelets if <20,000/mcL) If patient with Chronic Liver Disease (based on expert opinion): PT/INR < 3.0 (Consider Vitamin K infusion if INR >3.0) Platelets > 20,000/mcL (Transfuse platelets if <20,000/mcL in patients with a large spleen) Fibrinogen > 100mg/dL (Consider cryoprecipitate if <100mg/dL) *If on Direct Oral Anticoagulant (DOAC), follow HIGH Bleeding Risk recommendations in Table 2 and Table 3 Table 2. HIGH Bleeding Risk Laboratory Guidelines: HIGH Bleeding Risk Procedures Target Laboratory Values3 Ablations: solid organs, bone, soft tissue, lung Arterial diagnostic interventions: aortic, pelvic, mesenteric, peripheral Biliary interventions (including cholecystostomy tube placement) Catheter directed thrombolysis/thrombectomy- DVT, PE, portal vein (Highly case dependent) Deep abscess drainage (e.g., lung parenchyma, abdominal, pelvic, retroperitoneal) Deep non organ biopsies (e.g., spine, soft tissue in intra-abdominal, retroperitoneal, pelvic compartments) Gastrostomy/gastrojejunostomy placement IVC filter removal complex Lumbar puncture Lymphangiography Portal vein interventions Solid organ biopsies Spine procedures with risk of spinal or epidural hematoma (e.g., kyphoplasty, vertebroplasty, epidural injections, facet blocks) Trans jugular intrahepatic portosystemic shunt Port placement/removal (Buried) Urinary tract interventions (including nephrostomy tube placement, ureteral dilation, stone removal) Venous interventions: intrathoracic and ROTARY KILN OPERATOR intervention PT/INR < 1.8 (if arterial access, femoral: INR < 1.8, radial: INR < 2.2) Platelets > 50,000/mcL (Consider transfusing platelets if <50,000/mcL) If patient with Chronic Liver Disease (based on expert opinion): PT/INR < 2.5 (Give Vitamin K 10mg infusion if INR >2.5) Platelets > 30,000/mcL (Transfuse platelets if <30,000/mcL in patients with a large spleen) Fibrinogen > 100mg/dL (Consider cryoprecipitate if <100mg/dL) VIR Tish-procedure anticoagulant/antiplatelet guideline (pending P&T review 10/2020): Medication LOW Bleeding Risk^ HIGH Bleeding Risk^ Reinitiation Abciximab (ReoPro ) Hold 24 hrs before procedure Hold 24 hrs before procedure Patient undergoing PCI or within immediate periprocedural period from cardiac intervention; use multidisciplinary, shared decision-making Apixaban (Eliquis ) Do not hold CrCl > 50mL/min: Hold 4 doses CrCl < 30-50mL/min: Hold 6 doses 24 hrs Aspirin OR Aspirin/Dipyridamole (Aggrenox ) Holding strategy for aspirin requires patient-specific approach; for high risk or complex cardiovascular cases, multidisciplinary, shared decision-making is suggested Do not hold Hold for 3-5 days (assumes multidisciplinary evaluation and agreement to interrupt therapy) Resume the day after procedure Argatroban (Acova ) Do not hold Hold 2-4 hrs: check aPTT 4-6 hrs Betrixaban (Bevyxxa ) Do not hold Hold for 3 doses 24 hrs Bivalirudin (Angiomax ) Do not hold Hold 2-4 hrs: check aPTT 4-6 hrs Cangrelor (Kengreal ) Defer procedure until therapy completed; if emergent, multidisciplinary discussion with Cardiology is recommended Defer procedure until therapy completed; if emergent, multidisciplinary discussion with Cardiology is recommended Patient undergoing PCI or within immediate periprocedural period from cardiac intervention; Use multidisciplinary, shared-decision making Cilostazol (Pletal ) Do not hold Do not hold N/A Clopidogrel (Plavix ) Do not hold Hold for 5 days before procedure 75mg Dose: 6 hrs after procedure Loading Dose (300-600mg): 24 hrs after procedure Dabigatran (Pradaxa ) Do not hold CrCl > 50mL/min: Hold 4 doses CrCl < 30-50mL/min: Hold 6-8 doses Consider checking thrombin time with impaired renal function 24 hrs Edoxaban (Savaysa ) Do not hold Hold for 2 doses 24 hrs Eptifibatide (Integrilin ) Hold 4-8 hrs before procedure Hold 4-8 hrs before procedure Patient undergoing PCI or within immediate periprocedural period from cardiac intervention; Use multidisciplinary, shared decision-making Fondaparinux (Arixtra ) Do not hold CrCl > 50mL/min: Hold 2-3 Days CrCl < 50mL/min: Hold 3-5 days 24 hrs LMWH: Enoxaparin (Lovenox ), Dalteparin (Fragmin ) Do not hold Check anti-Xa level if renal function impaired Prophylactic Enoxaparin: Hold 1 dose Therapeutic Enoxaparin: Hold 2 doses or 24 hrs Dalteparin: Hold 1 dose 12 hrs NSAIDS (short-, intermediate-, and long-acting) Do not hold No recommendations N/A Prasugrel (Effient ) Do not hold Hold for 7 days before procedure Resume the day after the procedure Rivaroxaban (Xarelto ) Do not hold CrCl > 50mL/min: Hold 2 doses CrCl 30-50mL/min: Hold 2 doses CrCl < 15-30mL/min: Hold 3 doses 24 hrs Ticagrelor (Brilinta ) Do not hold Hold for 5 days before procedure Resume the day after the procedure Tirofiban (Aggrastat ) Hold 4-8 hrs before procedure Hold 4-8 hrs before procedure Patient undergoing PCI or within immediate periprocedural period from cardiac intervention; Use multidisciplinary, shared decision-making Unfractionated Heparin Do not hold IV Heparin: Hold 4-6 hrs before procedure; check aPTT or anti-Xa level SubQ Heparin: Hold 6 hrs before procedure 6-8 hrs Warfarin (Coumadin ) Target INR < 3 Hold 5 days until INR < 1.8 Low Bleeding Risk: N/A or same day for bridged patients High Bleeding Risk: Resume day after procedure; Consider bridging after procedure for high thrombosis risk cases; Use multidisciplinary, shared-decision making to balance bleeding vs. thrombotic risks. Esetfany Coe CNP Interventional Radiology [facility] 03/26/2025 For contact information please refer to professional caster directory [facility] Rounding APPs Cosigned by Rashawn Singh MD at 03/26/2025 8:41 AM EDT Associated Order(s): IP CONSULT TO [facility] 03/24/2025 12:14 pm- [facility] consult received to set up home health care services. Per consult, the pt will need home health for new colostomy management, and the pt will not discharge with TPN. Pt preference for home care is listed as [facility]. However, [facility] does not service the area. Referral sent to alternate agencies. Addendum 2:40 pm- Call from [facility] declining home health referral d/t pt is out of service are by 10 minutes. Addendum 4:09 pm- Call from [facility] and [facility] and they have declined the referral. Call placed to [facility] and ba agency is closed. Will need to follow up tomorrow morning. 1 additional referral sent out at this time Barriers to finding a [facility] agency: Insurance not widely accepted/pt location. If [facility] and [facility] decline then all home care options will have been exhausted and the pt will need an alternate plane at discharge. Inpatient social media coordinator notified. Name of [facility] agency: Pending / Accepted (if [facility], include region) Pending: Jackelyn Iqbal Referrals sent to: (names of agencies) Declined [facility]- out of service area [facility] (orders) created for the following services: [or waiting for ____ (i.e wound care)] Yes- SN Verify demographics (residential address) [address] [place] [id number] What is the primary number to reach you? [phone] Following physician will be: (list first name/last name) Lavinia Carrillo MD Do you have a caregiver and/or teachable caregiver (list relationship, name & phone #)? Significant Other Estimated Discharge Date (KATIANA): 03/24 If discharge needs change, please reach out to liaison assigned on treatment team as [facility] is not notified of new consults once team is following. Thank you. Associated Order(s): IP CONSULT TO IV TEAM IV team consulted for PICC placement. Chart and History reviewed. PICC insertion explained to patient. Agreed to procedure. Double lumen PICC inserted following universal protocol into basilic vein. PICC trimmed at 42 cm. External length at 0 cm. Patient tolerated well. PICC okay to use as tip is confirmed in lower SVC per ECG technology - maximum P wave and absence of negative deflection. Invasive Line Insertion Checklist followed. Flushes easily with good blood return. Primary RN notified OK to use. Associated Order(s): IP CONSULT TO INTERVENTIONAL RADIOLOGY [facility] INTERVENTIONAL RADIOLOGY CONSULT NOTE The patient's chart to include history and physical, pertinent allergies, code status, laboratory and available pertinent imaging were reviewed. * Diverticulitis of colon with perforation Assessment & Plan 59 yo female who [facility] with worsening abdominal pain for a week. OSH CTAP: acute sigmoid diverticulitis with kay perforation and pelvic phlegmon, measuring 9.5 x 3.5cm S/p ex-lap with diverting sigmoid colostomy and abdominal washout on 03/16 03/22 CT A/p-Postoperative fluid collections in the pelvis which may represent developing abscesses IR consulted by surgery for pelvic drain Images reviewed with Dr Aggarwal. Due to location of fluid collection, IR cannot place drain Code Status: Full Code Allergies: Patient has no known allergies. Laboratory: Laboratory 03/23/25 7:27 AM Radiology 03/23/25 7:27 AM Medications 03/23/25 7:27 AM Transcriptions 03/23/25 7:27 AM Lab Results Component Value Date BUN 3 (L) 03/23/2025 CREATININE 0.51 03/23/2025 EGFR 107 03/23/2025 BCR 5.9 (L) 03/23/2025 Lab Results Component Value Date PROTIME 14.2 03/16/2025 INR 1.1 03/16/2025 Lab Results Component Value Date WBC 9.65 03/23/2025 RBC 4.08 03/23/2025 HGB 12.4 03/23/2025 HCT 39.6 03/23/2025 PLT 464 (H) 03/23/2025 Pertinent image (if applicable): VIR Tish-procedure lab value guideline: Table 1. LOW Bleeding Risk Laboratory Guidelines Low Bleeding Risk Procedures Target Laboratory Values3 Bone Marrow Biopsy [Platelet Count - N/A] Catheter exchanges (gastrostomy, biliary, nephrostomy, abscess, including gastrostomy/gastrojejunostomy conversions) CVC tunneled >/= 8 Fr* Diagnostic venography and select venous interventions: pelvis and extremities Dialysis shunt interventions IVC filter placement and removal Non-tunneled chest tube placement for pleural effusion Non-tunneled venous access and removal (including PICC placement) and Tunneled venous access </= 7 Fr Paracentesis Peripheral nerve blocks, joint, and musculoskeletal injections Sacroiliac joint injection and sacral lateral branch blocks Superficial abscess drainage or biopsy (palpable lesion, lymph node, soft tissue, breast, thyroid) Thoracentesis Trans jugular liver biopsy Trigger point injections including piriformis Tunneled drainage catheter placement* PT/INR < 3.0 Platelets > 20,000/mcL (Consider transfusing platelets if <20,000/mcL) If patient with Chronic Liver Disease (based on expert opinion): PT/INR < 3.0 (Consider Vitamin K infusion if INR >3.0) Platelets > 20,000/mcL (Transfuse platelets if <20,000/mcL in patients with a large spleen) Fibrinogen > 100mg/dL (Consider cryoprecipitate if <100mg/dL) *If on Direct Oral Anticoagulant (DOAC), follow HIGH Bleeding Risk recommendations in Table 2 and Table 3 Table 2. HIGH Bleeding Risk Laboratory Guidelines: HIGH Bleeding Risk Procedures Target Laboratory Values3 Ablations: solid organs, bone, soft tissue, lung Arterial diagnostic interventions: aortic, pelvic, mesenteric, peripheral Biliary interventions (including cholecystostomy tube placement) Catheter directed thrombolysis/thrombectomy- DVT, PE, portal vein (Highly case dependent) Deep abscess drainage (e.g., lung parenchyma, abdominal, pelvic, retroperitoneal) Deep non organ biopsies (e.g., spine, soft tissue in intra-abdominal, retroperitoneal, pelvic compartments) Gastrostomy/gastrojejunostomy placement IVC filter removal complex Lumbar puncture Lymphangiography Portal vein interventions Solid organ biopsies Spine procedures with risk of spinal or epidural hematoma (e.g., kyphoplasty, vertebroplasty, epidural injections, facet blocks) Trans jugular intrahepatic portosystemic shunt Port placement/removal (Buried) Urinary tract interventions (including nephrostomy tube placement, ureteral dilation, stone removal) Venous interventions: intrathoracic and ROTARY KILN OPERATOR intervention PT/INR < 1.8 (if arterial access, femoral: INR < 1.8, radial: INR < 2.2) Platelets > 50,000/mcL (Consider transfusing platelets if <50,000/mcL) If patient with Chronic Liver Disease (based on expert opinion): PT/INR < 2.5 (Give Vitamin K 10mg infusion if INR >2.5) Platelets > 30,000/mcL (Transfuse platelets if <30,000/mcL in patients with a large spleen) Fibrinogen > 100mg/dL (Consider cryoprecipitate if <100mg/dL) VIR Tish-procedure anticoagulant/antiplatelet guideline (pending P&T review 10/2020): Medication LOW Bleeding Risk^ HIGH Bleeding Risk^ Reinitiation Abciximab (ReoPro ) Hold 24 hrs before procedure Hold 24 hrs before procedure Patient undergoing PCI or within immediate periprocedural period from cardiac intervention; use multidisciplinary, shared decision-making Apixaban (Eliquis ) Do not hold CrCl > 50mL/min: Hold 4 doses CrCl < 30-50mL/min: Hold 6 doses 24 hrs Aspirin OR Aspirin/Dipyridamole (Aggrenox ) Holding strategy for aspirin requires patient-specific approach; for high risk or complex cardiovascular cases, multidisciplinary, shared decision-making is suggested Do not hold Hold for 3-5 days (assumes multidisciplinary evaluation and agreement to interrupt therapy) Resume the day after procedure Argatroban (Acova ) Do not hold Hold 2-4 hrs: check aPTT 4-6 hrs Betrixaban (Bevyxxa ) Do not hold Hold for 3 doses 24 hrs Bivalirudin (Angiomax ) Do not hold Hold 2-4 hrs: check aPTT 4-6 hrs Cangrelor (Kengreal ) Defer procedure until therapy completed; if emergent, multidisciplinary discussion with Cardiology is recommended Defer procedure until therapy completed; if emergent, multidisciplinary discussion with Cardiology is recommended Patient undergoing PCI or within immediate periprocedural period from cardiac intervention; Use multidisciplinary, shared-decision making Cilostazol (Pletal ) Do not hold Do not hold N/A Clopidogrel (Plavix ) Do not hold Hold for 5 days before procedure 75mg Dose: 6 hrs after procedure Loading Dose (300-600mg): 24 hrs after procedure Dabigatran (Pradaxa ) Do not hold CrCl > 50mL/min: Hold 4 doses CrCl < 30-50mL/min: Hold 6-8 doses Consider checking thrombin time with impaired renal function 24 hrs Edoxaban (Savaysa ) Do not hold Hold for 2 doses 24 hrs Eptifibatide (Integrilin ) Hold 4-8 hrs before procedure Hold 4-8 hrs before procedure Patient undergoing PCI or within immediate periprocedural period from cardiac intervention; Use multidisciplinary, shared decision-making Fondaparinux (Arixtra ) Do not hold CrCl > 50mL/min: Hold 2-3 Days CrCl < 50mL/min: Hold 3-5 days 24 hrs LMWH: Enoxaparin (Lovenox ), Dalteparin (Fragmin ) Do not hold Check anti-Xa level if renal function impaired Prophylactic Enoxaparin: Hold 1 dose Therapeutic Enoxaparin: Hold 2 doses or 24 hrs Dalteparin: Hold 1 dose 12 hrs NSAIDS (short-, intermediate-, and long-acting) Do not hold No recommendations N/A Prasugrel (Effient ) Do not hold Hold for 7 days before procedure Resume the day after the procedure Rivaroxaban (Xarelto ) Do not hold CrCl > 50mL/min: Hold 2 doses CrCl 30-50mL/min: Hold 2 doses CrCl < 15-30mL/min: Hold 3 doses 24 hrs Ticagrelor (Brilinta ) Do not hold Hold for 5 days before procedure Resume the day after the procedure Tirofiban (Aggrastat ) Hold 4-8 hrs before procedure Hold 4-8 hrs before procedure Patient undergoing PCI or within immediate periprocedural period from cardiac intervention; Use multidisciplinary, shared decision-making Unfractionated Heparin Do not hold IV Heparin: Hold 4-6 hrs before procedure; check aPTT or anti-Xa level SubQ Heparin: Hold 6 hrs before procedure 6-8 hrs Warfarin (Coumadin ) Target INR < 3 Hold 5 days until INR < 1.8 Low Bleeding Risk: N/A or same day for bridged patients High Bleeding Risk: Resume day after procedure; Consider bridging after procedure for high thrombosis risk cases; Use multidisciplinary, shared-decision making to balance bleeding vs. thrombotic risks. Cherelle Coello CNP Interventional Radiology [facility] 03/23/2025 For contact information please refer to professional caster directory [facility] Rounding APPs Cosigned by Davi Aggarwal MD at 03/23/2025 8:23 AM EDT Physical Therapy PHYSICAL THERAPY EVALUATION Skilled Therapy Needs After Discharge Anticipate Resolution of Current Assessment Limitations Including: Pain Are deputy brand inspector Therapy Services Needed After Discharge: No PT DME Recommendation: Tub seat PT DME Rationale: Patient's condition prevents him/her from accomplishing ADL without recommended equipment, Patient's condition creates an increased risk of safety hazard without recommended equipment Rehab Potential: Good Outcomes Measures Prior Function - Basic Mobility Raw Score: 24 Points Prior Function - Basic Mobility % Impaired: 0% AM-PAC Basic Mobility Raw Score: 18 Points AM-PAC Basic Mobility % Impaired: 40.47% Physical Therapy Assessment History: The following factors influence the patient's participation in the PT plan of care: Personal Factors: None Environmental Factors: (none) The following co-morbidities (from this admission or prior) influence the patient's participation in this plan of care: Patient is s/p ex-lap for diverticulitis. Number of History elements affecting this patient's PT plan of care: 3 or more Examination of Body Systems: The patient presents with: Musculoskeletal impairments: Pain Integumentary Impairments: Active Wound. These impairments result in limitations of Gait, Functional Transfers, Safety, Activity Tolerance. These impairments result in restrictions of Household mobility, Community mobility, Work-related activities, Leisure activities. Number of Body Systems elements affecting this patient's PT plan of care: 4 or more. Clinical Presentation: The patient's clinical presentation for this PT evaluation is evolving with changing characteristics as evidenced by current PT documentation. Activity Tolerance Activity Tolerance: Endurance does not limit participation in activity Therapy Precautions General Rehab Precautions: Abdominal Balance Assessment Sitting Balance - Static: Independent Sitting Balance - Dynamic: Independent Standing Balance - Static: Stand by assist Standing Balance - Dynamic: Stand by assist Bed Mobility Rolling: Head of bed elevated, Supervision Supine to Sit: Supervision, Head of bed elevated Sit to Supine: Supervision, Head of bed elevated Technology Architect: bed positioning mechanics Transfers Sit to Stand: Stand by assist (EOB x1) Gait/Locomotion Gait Assistance: Stand by assist Distance: 200 Feet Pattern: step through, decreased arpan (steps per minute) Additional Assessment Details Home Living Obtained Home Living and PLOF info from: Patient Lives With: Spouse Type of Home: House Home Layout: One level Steps to enter home: No Bathroom Shower/Tub: Walk-in shower Bathroom Toilet: Standard Prior Level of Function Receives Help From: Spouse, Friend(s) (friend who is home health aid planning to assist with ostomy management) Level of [place] - Transfers/Ambulation/Mobility: Independent with functional transfers, Independent with household ambulation, Independent with community ambulation Level of [place] - ADLs: Independent Level of [place] - Homemaking: Independent Driving: Patient drives 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) Leisure: gardening, spending time with transfers Past Medical History: Diagnosis Date Diverticulitis Past Surgical History: Procedure Laterality Date BREAST SURGERY EXPLORATORY LAPAROTOMY N/A 03/16/2025 Procedure: EXPLORATORY LAPAROTOMY, POSSIBLE BOWEL RESECTION, POSSIBLE OSTOMY; Surgeon: Lavinia Carrillo MD; [facility]; Service: General Surgery; Laterality: N/A; For complete objective data, detailed plan of care and patient education refer to: PT Evaluation flowsheet, PT Evaluation and Treatment flowsheet, PT Treatment flowsheet, patient Plan of Care, Plan of Care progress note, and Patient Education. This note stands as the current Discharge Summary upon patient discharge from the hospital or completion of Physical Therapy Plan. Occupational Therapy OCCUPATIONAL THERAPY EVALUATION, TREATMENT, AND DISCHARGE NOTE OCCUPATIONAL THERAPY EVALUATION Skilled Therapy Needs After Discharge Anticipate Resolution of Current Assessment Limitations Including: Pain Are OT Skilled Therapy Services Needed After Discharge: No OT DME Recommendation: Tub seat OT DME Rationale: Patient's condition creates an increased risk of safety hazard without recommended equipment, Patient's condition prevents him/her from accomplishing ADL without recommended equipment, Functional reach deficit/ post surgical precaution adherence/ limitations of body habitus Outcomes Measures Prior Function Daily Activity Raw Score: 24 Prior Function Daily Activity % Impaired: 0% AM-PAC Daily Activity Raw Score: 21 AM-PAC Daily Activity % Impaired: 32.79% Occupational Therapy Assessment The patient's home setup is a operations support manager, limitations of family / caregiver support is a barrier, transportation is a operations support manager for return to prior level of function. The patient's education level is a operations support manager, compliance is a operations support manager, awareness of own capacity and performance is a operations support manager to return to prior level of function. During the assessment, minimal to moderate modification of task was required and limited treatment options were identified in the plan of care. This consultation required expanded review of the medical and therapy history. Pt educated on OT role/POC and discharge recommendations. Pt educated on abdominal precautions and functional application for ADLs and mobility, including logroll for bed mobility and figure four technique for LB dressing/bathing. Pt demos good carryover during session. OT educated Pt on lifting restriction of 5-10lbs, Pt reports spouse able to assist with IADLs that involve heavy lifting (e.g. laundry, groceries, etc.). Upon evaluation, Pt is functioning at/near baseline (IND) with ADLs and mobility. No further skilled acute OT services warranted. OT to sign off at this time, Pt agreeable. Activity Tolerance Activity Tolerance: Endurance does not limit participation in activity (Pt able to tolerate 20-30min of activity without a rest break, HR 80-100bpm with oob activity) Therapy Precautions Orthotic Devices: No Weight Bearing Status: WFL General Rehab Precautions: Abdominal, Fall risk (s/p ex-lap with diverting sigmoid colostomy and abdominal washout on 03/16) Cognition Overall Cognitive Status: Within Functional Limits Arousal/Alertness: Appropriate responses to stimuli Orientation Level: Oriented X4 Executive functioning: Insight, Min impairment Safety Judgment: Good awareness of safety precautions Problem Solving: Assistance required to generate solutions Attention: Attends to distracted environment Hearing Status: WF Social Interaction: Appropriate, Cooperative Comments: Pt follows all commands appropriately. Initially apprehensive, but receptive to education after OT introduced role and POC. Educated on abdominal precautions and handout provided. ADL Feeding: (Pt NPO, able to self-feed ice chips) Grooming: Independent (performed hand hygiene standing at sink and hair care. Applied deodorant sitting eob) Lower Body Bathing: (Verbal education provided on LB bathing at home including benefit of shower chair for energy conservation and use of figure four technique to wash LEs while adhering to abdominal precautions) Upper Body Dressing: Minimal assist (facilitated doffing/donning gown with Min A for threading LUE due to IV lines) Lower Body Dressing: Supervision (pt able to doff/don jostin socks using figure four technique while sitting eob) Toileting: Independent Functional Mobility: Supervision (ambulated distance to/from bathroom, + additional household distance in hallway, Pt self-managing IV pole, no LOB) Bed Mobility Supine to Sit: Stand by assist, Head of bed flat Sit to Supine: Stand by assist, Head of bed flat Functional Transfers Sit to Stand: Independent Toilet Transfers: Independent, to/from toilet Home Living Obtained Home Living and PLOF info from: Patient Lives With: Spouse Type of Home: House Home Layout: One level Steps to enter home: No Bathroom Shower/Tub: Walk-in shower Bathroom Toilet: Standard Prior Level of Function Receives Help From: Spouse, Friend(s) (friend who is home health aid planning to assist with ostomy management) Level of [place] - Transfers/Ambulation/Mobility: Independent with functional transfers, Independent with household ambulation, Independent with community ambulation Level of [place] - ADLs: Independent Level of [place] - Homemaking: Independent Driving: Patient drives 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) Leisure: gardening, spending time with transfers OCCUPATIONAL THERAPY TREATMENT NOTE Total Treatment Time (Total Session Time): 30 Minutes Total Timed Code Treatment Minutes: 12 Minutes Cognitive Skills Development Skilled Intervention Provided: facilitation, environmental setup/modification, task breakdown/simplification, patient education, multi-modal cues For: increased self-awareness, necessary precautions, preparing for self-care tasks, compensatory techniques Resulting In: improved activity tolerance, increased insight into deficits, improved problem solving, increased safety awareness, increased object recognition/utilization Self-Care / ADL Grooming - Skilled Intervention Provided: environmental setup/modification, facilitation, monitored patient's safety and tolerance Grooming - For: fall prevention, task simplification/modification Grooming - Resulting In: improved activity tolerance, improved overall self care, improved participation in ADL task, improved performance with ADLs Lower Body Bathing - Skilled Intervention Provided: patient education, verbal cues Lower Body Bathing - For: use of figure four technique for lower body ADLs, task simplification/modification Lower Body Bathing - Resulting In: improved ability to understand / adhere to precautions Upper Body Dressing - Skilled Intervention Provided: verbal cues, environmental setup/modification, facilitation Upper Body Dressing - For: sequencing of movement, task simplification/modification, clothing modification to facilitate ease of dressing Upper Body Dressing - Resulting In: improved activity tolerance, improved overall self care, improved participation in ADL task, improved performance with ADLs, improved sequencing Lower Body Dressing - Skilled Intervention Provided: verbal cues, environmental setup/modification, facilitation, patient education, demonstration Lower Body Dressing - For: adaptive techniques for lower body ADLs, necessary precautions, task simplification/modification, use of figure four technique for lower body ADLs Lower Body Dressing - Resulting In: improved ability to understand / adhere to precautions, improved overall self care, improved participation in ADL task, improved performance with ADLs Functional Mobility - Skilled Intervention Provided: environmental setup/modification, facilitation, monitoring patient response with activity, monitoring patient vital signs at rest/during/after activity Functional Mobility - For: increased participation in mobility task, fall prevention, navigation/wayfinding, safety during functional task(s) Functional Mobility - Resulting In: improved activity tolerance, improved balance, improved performance, increased initiation/participation in mobility task(s), improved safety Therapeutic Activities Bed Mobility Skilled Intervention Provided: verbal cues, tactile cues, environmental setup/modification, facilitation, monitoring patient response with activity, provided step by step instructions, patient education For: logroll technique, necessary precautions, safe use of bedrails and/or equipment, safety during functional task(s), self-monitoring during activity, sequencing of movement Resulting In: improved activity tolerance, improved adherence to precautions, improved performance, improved safety, increased insight into deficits, increased participation in mobility task(s), increased initiation in mobility task(s) Neuromuscular Reeducation Sitting Balance - Static: Independent Sitting Balance - Dynamic: Independent Standing Balance - Static: Independent Standing Balance - Dynamic: Supervision, without UE support Additional Treatment Details Past Medical History: Diagnosis Date Diverticulitis Past Surgical History: Procedure Laterality Date BREAST SURGERY EXPLORATORY LAPAROTOMY N/A 03/16/2025 Procedure: EXPLORATORY LAPAROTOMY, POSSIBLE BOWEL RESECTION, POSSIBLE OSTOMY; Surgeon: Lavinia Carrillo MD; [facility]; Service: General Surgery; Laterality: N/A; For complete objective data, detailed plan of care and patient education refer to: OT Evaluation flowsheet, OT Evaluation and Treatment flowsheet, OT Treatment flowsheet, patient Plan of Care, Plan of Care progress note, and Patient Education. This note stands as the current Discharge Summary upon patient discharge from the hospital or completion of Occupational Therapy Plan of Care. Associated Order(s): IP CONSULT TO CARE MANAGEMENT Care Management Consult Note Date: 03/22/2025 Time: 9:37 AM Patient Name: Jose Lind Date of : 1965 Reason for Consult: Discharge needs Discharge Plan: D/C Disposition: Home Plan A: Home Discharging Transportation Plan: Transportation Type: Auto Discharge Plan Status: CM dc plan: PLAN A- home Plan B- CM reviewed chart, PT (AM-PAC=), OT (AM-PAC=), rec's pending. CM met with pt regarding discharge needs, planning and CM role. Demographics confirmed. Pt does have a PCP Dr Lerma.CM explained PT/OT rec's pending. CM will continue to follow for discharge needs and therapy rec's. Assessment and Background Information: Living Arrangements: Spouse/significant other Support Systems: Spouse/significant other Assistance Needed: no Type of Residence: Private residence Prior to Admission Home Care Services: No Current Home Equipment: None Holistic Assessment Medication adherence problem:: No History of falls in last 6 months:: No Family aware of the patient's advance care planning wishes:: Yes Do you have any cultural/spiritual connections or beliefs that would impact how we deliver your care?: No Associated Order(s): IP CONSULT TO CARDIOLOGY Resident Consult Note Patient Name: Jose Lind : 1965 Admit Date: [id number] Assessment and Plan Patient is a 59 y.o. female with a past medical history significant for diverticulosis, perforated sigmoid diverticulitis s/p ex-lap with diverting colostomy and abdominal washout (03/16), former smoker with 20 pack years who [facility] as a transfer for general surgery evaluation. Surgery following. Cardiology consulted for post-op intermittent tachycardia and elevated troponin. Intermittent Tachycardia - Etiology likely multifactorial and stemming from sympathetic overactivity from pain / stress, electrolyte disturbance, and infection from perforated sigmoid diverticulitis - As noted around 02:30AM with rate as high as 140's. Asymptomatic with associated tachypnea - Multiple EKGs obtained with varying rhythms depicted on different strips: SVT, atrial tachycardia, sinus tachycardia, sinus rhythm with PVCs - Family history notable for CVA in mother and GA in father & brother - S/p stress test (06/2002) negative for ischemia, LVEF 65% - S/p stress test (12/2005) negative for ischemia, LVEF 55% - S/p stress echo (10/2010) negative for ischemia, LVEF 55% - Mag, Phos, K repleted. Down-trending WBC. TSH with reflex T4 WNL - Hemoglobin of 11.6 this AM from 13.2 two days ago - NT-Pro BNP of 479 (03/16) - Maintained on IVF with D5LR at 125cc/hr. On VTE prophylaxis with Lovenox 40mg daily. Empiric abx with Zosyn - Recommend continuous telemetry monitoring. Will order TTE and schedule 25mg of Lopressor BID. Plan to be discussed with attending on service. Elevated Troponin - Likely a consequence of myocardial oxygen-supply demand mismatch and possibly further influenced by the above tachycardia. Less concerned for ischemic insult - Patient asymptomatic with no chest pain, palpitations or dyspnea - Troponin T 15 -> 15 Mati Aranda MD Internal Medicine PGY 1 Pager: [phone] 03/18/25 7:14 AM Presenting Symptom: perforated sigmoid diverticulitis History of Present Illness Jose Lind is a 59 y.o. female with a past medical history significant for diverticulosis, perforated sigmoid diverticulitis s/p ex-lap with diverting colostomy and abdominal washout (03/16), former smoker with 20 pack years who [facility] as a transfer for general surgery evaluation. Surgery following. Cardiology consulted for post-op intermittent tachycardia and elevated troponin. - EKG obtained with sinus atrial tachycardia (03/18), sinus tachycardia (03/18), sinus rhythm with PVCs (03/17), and sinus tachycardia (03/16) - Family history notable for CVA in mother and GA in father & brother - S/p stress test (06/2002) negative for ischemia, LVEF 65% - S/p stress test (12/2005) negative for ischemia, LVEF 55% - S/p stress echo (10/2010) negative for ischemia, LVEF 55% Patient says she began getting stress tests done early due to her strong family history. - Family history notable for CVA in mother and GA in father & brother She says that she is in pain currently - as expected post-op - that is improved with pain meds. She denies any degree of chest pain, palpitations or dyspnea. Past Medical/ Surgical/ Social/ Family History Past Medical History: Diagnosis Date Diverticulitis Past Surgical History: Procedure Laterality Date BREAST SURGERY EXPLORATORY LAPAROTOMY N/A 03/16/2025 Procedure: EXPLORATORY LAPAROTOMY, POSSIBLE BOWEL RESECTION, POSSIBLE OSTOMY; Surgeon: Lavinia Carrillo MD; [facility]; Service: General Surgery; Laterality: N/A; History reviewed. No pertinent family history. Social History [1] Patient Allergies I have reviewed the patient's allergies. Patient has no known allergies. Patient Review of Systems Review of Systems Constitutional: Negative for fever. Respiratory: Negative for chest tightness, shortness of breath and wheezing. Cardiovascular: Negative for chest pain, palpitations and leg swelling. Gastrointestinal: Positive for abdominal pain. Neurological: Negative for dizziness and syncope. Physical Exam Vital Signs: BP 121/82 (BP Location: Right arm, Patient Position: Lying) Pulse 85 Temp 99.4 F (37.4 C) (Oral) Resp (!) 21 Ht 5' 10 Wt 81.6 kg (180 lb) SpO2 (!) 89% BMI 25.83 kg/m Physical Exam Constitutional: General: She is not in acute distress. Appearance: She is not diaphoretic. Eyes: Extraocular Movements: Extraocular movements intact. Cardiovascular: Rate and Rhythm: Normal rate and regular rhythm. Pulses: Normal pulses. Heart sounds: Normal heart sounds. Pulmonary: Effort: Pulmonary effort is normal. No respiratory distress. Breath sounds: No wheezing. Abdominal: Tenderness: There is abdominal tenderness. Skin: General: Skin is warm and dry. Capillary Refill: Capillary refill takes less than 2 seconds. Neurological: General: No focal deficit present. Mental Status: She is alert. Psychiatric: Mood and Affect: Mood normal. Additional Data - Labs/ Radiology/ etc. Recent Labs 03/16/25 1107 03/17/25 0608 03/18/25 0251 NA 137 132* 131* K 4.2 4.8 3.7 CL 101 100 99 BICARB 24 24 23 BUN 11 10 10 CREATININE 0.73 0.58 0.59 GLUCOSE 115* 134* 125* Recent Labs 03/16/25 1108 03/17/25 0608 03/18/25 0251 WBC 14.34* 12.19* 11.74* HGB 13.2 12.2 11.6* HCT 41.0 37.9 34.5* PLT 393 336 328 Lab Results Component Value Date ALT 13 03/18/2025 AST 11 03/18/2025 ALKPHOS 66 03/18/2025 BILITOT 0.6 03/18/2025 ALBUMIN 2.6 (L) 03/18/2025 Recent Labs 03/16/25 1107 INR 1.1 No results found for: HGBA1C Patient Home Medications No current outpatient medications on file. [1] Social History Socioeconomic History Marital status: Tobacco Use Smoking status: Never Smokeless tobacco: Never Vaping Use Vaping status: Never Used Substance and Sexual Activity Alcohol use: Yes Comment: socially Drug use: Never Cosigned by Bernice Tang MD at 03/18/2025 11:59 AM EDT Associated attestation - Bernice Tang MD - 03/18/2025 11:59 AM EDT Images from the original note were not included. CARDIOLOGY CONSULTATION Bernice Tang MD, FACC, FASE I have reviewed the history, physical, diagnosis and care plan with the resident physician. I confirm the assessment and treatment plan. I have performed my own separate complete history and physical exam on the same calendar day as theirs and it agrees with the exam and history documented by the resident in this note with the following addendum: Pleasant 59-year-old female with no significant cardiac history comes in with perforated sigmoid diverticulitis and goes for exploratory lap and abdominal washout on March 16. Postoperatively in the last 24 hours she has gone in and out of SVT. Based on the EKGs this appears to be a atrial tachycardia that probably originates in the bottom of the right atrium as the P wave in sinus rhythm is upright and when she goes into this SVT it is inverted indicating it is coming from the opposite pole of the SA node. Interestingly, she jumps up to 130 bpm and is asymptomatic with it. It will then convert back to sinus rhythm at 80 bpm. She has probably had 30 of these episodes overnight on my telemetry review. Each episode last a minute or 2. I explained to her the significance of this. It is almost certainly a benign rhythm that is triggered by her inflammatory state from her perforated diverticulitis and probable infection. I suspect it will settle down eventually. In the meantime I would like to start her on Lopressor 25 twice daily to cool off this piece of atrium that is irritable. IMPRESSION 1. Intermittent atrial tachycardia triggered by perforated diverticulum 2. No other significant cardiac history. PLAN 1. Lopressor 25 twice daily for 1 month after discharge and then she could stop it. 2. Check echocardiogram today. If it is unremarkable then no further workup. Associated Order(s): IP CONSULT TO HOSPITALIST [facility] Consult Note 03/16/25 Jose Lind 1965 [id number] Assessment/Plan: Jose Lind is a 59 y.o. female with a history of diverticulosis who presented to [place] ED for abdominal pain, distention, found to have diverticulitis with perforation and phlegmon. [facility] for general surgery evaluation. [facility] consulted for medical management Diverticulitis with Perforation: With acute onset of abdominal pain 03/15/25. AT [facility]: CT A/p showed acute sigmoid diverticulitis with perforation, pelvic phlegmon, and pneumoperitoneum. Continued Zosyn. Plan for ex-lap with possible bowel resection and ostomy 03/16/25. General surgery surgery primary Preoperative evaluation: George Revised Cardiac Index Risk Factors: High risk surgery . At home, patient able to complete < 4 METS as evidenced by inability to climb two flights of stairs without CP or dyspnea. Chronic medical conditions that increase perioperative risk not captured with RCRI include: none. On physical exam, patient does not demonstrate any evidence of clinically significant cardiac murmur, ACS or congestive heart failure. Most recent cardiac testing: ECG 03/16/25 sinus tach rate of 102 BPM, non specific T wave changes. After chart review and discussion with patient, qualifies for Intermediate Risk ( 1-2 RCRI with poor functional status). We will measure NT-proBNP, and if >200 would qualify as higher risk and would recommend monitoring troponin POD #1 and POD #2 to capture MACE/MINS. . Further cardiac testing will not reduce patients risk and okay to proceed without further testing. Final decision to take patient to OR left to risk/benefit decision making of surgical team. Code status: Full DVT Prophylaxis: Lovenox per primary Thank you for allowing us to participate in the care of your patient. For any questions, please call the number of the covering hospitalist listed under the treatment team in care connect. Medication Reconciliation: Reviewed using Per patient, at bedside, patient takes no home medications Current living situation: Home Expected Disposition: Home Estimated discharge date: TBD Medically Ready for Discharge: no as above ___ Chief Complaint / Reason for Consult: Diverticulitis, medical management History of Present Illness: Jose Lind is a 59 y.o. female with a history of diverticulosis who presented to [place] ED for abdominal pain, distention, found to have diverticulitis with perforation and phlegmon. [facility] for general surgery evaluation. [facility] consulted for medical management Hemoglobin 10 patient seen and evaluated in the ER. Patient is a patient seen and evaluated in the ER in room 52. Patient is a 59-year-old female who was transferred [facility] for concerns for diverticulitis with perforation and phlegmon. Patient does have a history of diverticulitis., Reported increasing abdominal pain and distention yesterday prior to arrival to [facility]. Patient was ultimately transferred to [place] for surgical evaluation plan for or later today. Continue IV antibiotics., Preop as above. Today I personally did a review of prior medical records and have summarized my findings in my assessment and plan as noted above. Today I also reviewed recent labs, diagnostics, vitals including pulse ox, and garden consultant/other provider recommendations. As needed IV Dilaudid ordered high risk medication require close monitoring titration. Reviewed outlying hospital notes, ED notes from earlier today. ROS: 10 systems were reviewed and negative, except as noted above. Past Medical, Surgical, Social, Family History: Past Medical History: Diagnosis Date Diverticulitis Past Surgical History: Procedure Laterality Date BREAST SURGERY Social History [1] History reviewed. No pertinent family history. Current Medications: Medication list reviewed with patient. Please see MAR for full details. Physical Exam: BP 115/83 Pulse (!) 105 Temp 99.5 F (37.5 C) (Axillary) Resp (!) 19 Ht 5' 10 Wt 81.6 kg (180 lb) SpO2 92% BMI 25.83 kg/m General: Uncomfortable appearing Eyes: EOMI, sclera clear ENT: neck supple Cardiovascular: Regular rate, no murmur Respiratory: Clear to auscultation, symmetric air entry Gastrointestinal: TTP, distended, positive bowel sounds Genitourinary: no CVA tenderness Musculoskeletal: no major joint deformity Skin: warm, dry, no LE edema Neuro: Alert, oriented x3, no focal motor deficits Psych: Mood appropriate Labs, Imaging, and Studies reviewed: Results from last 7 days Lab Units 03/16/25 1108 WBC K/mcL 14.34* HGB g/dL 13.2 HCT % 41.0 PLT K/mcL 393 Results from last 7 days Lab Units 03/16/25 1107 SODIUM mmol/L 137 POTASSIUM mmol/L 4.2 CHLORIDE mmol/L 101 BICARB mmol/L 24 BUN mg/dL 11 CREATININE mg/dL 0.73 EGFR mL/min/1.73 m2 94 GLUCOSE mg/dL 115* CALCIUM mg/dL 9.2 Results from last 7 days Lab Units 03/16/25 1107 INR 1.1 [1] Social History Socioeconomic History Marital status: Tobacco Use Smoking status: Never Smokeless tobacco: Never Vaping Use Vaping status: Never Used Substance and Sexual Activity Alcohol use: Yes Comment: socially Drug use: Never Cosigned by Dilia Leonardo DO at 03/16/2025 4:18 PM EDT Associated attestation - Dilia Leonardo DO - 03/16/2025 4:18 PM EDT I saw and examined Jose Lind independently reviewing labs, imaging and garden consultant notes (if available). I was physically present for the browning portions of the services provided and completed a substantive exam as detailed below. I agree with Jt Nesbitt PA-C documentation as below- with the following additions and exceptions: Jose Lind is a 59 y.o. female with PMHx of diverticulosis and diverticulitis who presented on 03/16/2025 as transfer from OSH where she presented with several days of lower abd pain found to have perforated diverticulitis. Transferred for GS eval. [facility] consulted for medical management and preoperative eval. Patient states pain started 5 to 6 days ago. Lower abdomen. It was coming and going and then acutely worsened on Sunday which was much more severe. She was mildly nauseated. She reports history of diverticulitis treated with antibiotics. Of note she did have a colonoscopy recently but does not seem like it was complete colonoscopy. She has mild fevers and chills. She is overall fairly healthy. She denies any chest pain shortness of breath. She denies a history of stroke chronic kidney disease diabetes and no significant cardiac or pulmonary history. She is very active at baseline without any anginal concerns. Personally reviewed labs: Mild leukocytosis of 14 platelets normal hemoglobin normal. Lactic acid is 1.3. She has normal renal function Personally reviewed imaging: CT images from outside hospital notable for diverticulitis with free air throughout the abdomen with phlegmon near the sigmoid colon. Physical: AOx3. NAD, resting comfortably in bed. RRR, CTA B/l. Abd soft with diffuse tenderness lower abdomen right around the periumbilical area. Mild rebound, and peritoneal on exam. MSK WNL. Neurovascularly intact. A/P: Patient presenting with suspected perforated sigmoid diverticulitis with concerning abdominal exam. She is admitted to the general surgery team and they are planning on OR this evening. While this would considered a urgent emergent procedure she is fairly healthy at baseline and does not require further workup prior to her operation. Other medical problems are at baseline. Continue IV antibiotics. We will continue to follow. Appreciate the consult, please call with questions. Dilia Leonardo DO [facility] Hospitalist For direct communication please utilize secure chat or physician directory for cell phone number documented in this encounter [facility] 03-25-2025 Note CLINIC SURGERY PROGR ESS NOTE Patient Name: Jose Lind ASSESSMENT AND PLAN Jose Lind is a 59 y.o. female with history of former smoker, s/p breast reduction, colon polyps, diverticulitis who [facility] with worsening abdominal pain for a week. OSH CTAP: acute sigmoid diverticulitis with kay perforation and pelvic phlegmon, measuring 9.5 x 3.5cm Perforated Diverticulitis - S/p ex-lap with diverting sigmoid colostomy and abdominal washout on 03/16 - Ostomy w/ stool after ostomy katlin removal 03/23 - ET following, appreciate their assistance - Adv to FLD - Cardiology planning on heart cath, please hold for now as needs possible perc drain - Cont zosyn - PT/OT/CM for dispo - Ok to wean TPN 03/26 if pt tolerating FLD - Interval rescan tomorrow to assess pelvic fluid collection Madi Bryant, DO General Surgery Please contact surgical international project engineer professional caster 5PM-6AM and weekends - [phone] SUBJECTIVE NAEO. Seems to be improving every day. Still w/ some pelvic discomfort. Ostomy working, tolerated clears. Review of Systems: All systems were reviewed and otherwise negative except for as noted above PHYSICAL EXAM VITALS BP 90/65 (BP Location: Left arm, Patient Position: Lying) Pulse 65 Temp 98.2 degrees F (36.8 degrees C) (Oral) Resp (!) 28 Ht 5' 10 Wt 78.9 kg (174 lb) SpO2 98% BMI 24.97 kg/m PHYSICAL EXAM General: Awake and alert, no acute distress Head: Normocephalic Eyes: EOM grossly intact Neck: Trachea midline Cardiovascular: Hemodynamically stable Pulmonary: Nonlabored breathing Extremities: No obvious deformities, warm and well perfused Skin: Dry and intact, no obvious rash Neurological: No gross focal deficits, answering questions appropriately GI: Abd soft, b/l lower abd TTP, ostomy with pink mucosa w/ stool o/p, C/D/I dressing, IMAGING Recent diagnostic imaging/reports reviewed. Pertinent findings may be listed above. Please correlate with formal radiology reads. LABS Laboratory studies ordered and reviewed. Pertinent findings may be listed below: Hgb: 11.5 03/25/25 WBC: 11.06 03/25/25 Plts: 385 03/25/25 Na: 134 03/25/25 K: 4.3 03/25/25 Cr: 0.45 03/25/25 INR: - - 03/25/25 UA obtained: pending 03/25/25 AUTHENTICATED BY MADI BRYANT, ON 03/25/2025 12:32:44 [facility]25[facility]2025 Jose Lind 1965 [id number] Assessment/Plan: Jose Lind is a 59 y.o. female with a history of diverticulosis who presented to [place] ED for abdominal pain, distention found to have perforated diverticulitis. [facility] for general surgery evaluation. S/p ex-lap with bowel resection and ostomy 03/16/25 (Dr. Carrillo, ). Hospital course complicated by post-op ileus, intermittent tachycardia, and abnormal stress test. Diverticulitis with Perforation: With acute onset of abdominal pain 03/15/2025. CTAP 03/16/2025 showed acute sigmoid diverticulitis with perforation, pelvic phlegmon. S/p ex-lap with bowel resection and ostomy 03/16/25 (Dr. Carrillo, ). Repeat CTAP 03/22/2025 showed developing abscesses in the pelvis. IR unable to place drain. Restarted on Zosyn. General Surgery following, planning interval CT; continued TPN until PO can be advanced. Intermittent Tachycardia: likely multifactorial from pain, stress, electrolyte disturbance, infection, possible ischemic component. With HR up to 130-140's intermittently. Multiple EKGs have shown SVT, atrial tachycardia, sinus tachycardia, PVCs. TTE 03/19/25 EF 43%, global hypokinesis. Cardiology initiated BB. Abnormal stress test: PET stress 03/20/25 significantly abnormal and suggestive of LAD disease. 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 Cardiology followed, recommend OP follow up for evaluation of LHC. Postoperative Ileus: KUB 03/17/25 with possible postoperative ileus vs low grade partial SBO. Patient without flatulence. NG tube placed on 03/18/25. Remains NPO. TPN started 03/23/2025. Surgery managing. Incidental pulmonary nodule: CCTA with sub centimeter LLL nodule, recommend re-imaging in 12mo as OP. Code status: Full DVT Prophylaxis: Lovenox Current living situation: Home Expected Disposition: likely home, therapy consulted Estimated discharge date: TBD Medically Ready for Discharge: no - pending ileus and heart cath Subjective: Patient seen and examined this morning, resting in bed. Reports doing okay at present. No dyspnea, chest pain. Notes some lower abdominal tenderness this morning, otherwise no nausea or vomiting. Has had gas in her ostomy, some liquid output. Was on IV Lopressor, discussed with pharmacist - patient had CCTA this AM and we discussed utilizing PO Lopressor for this study in addition to IV. Cardiology following; discussed with Cardio resident 03/25/2025, recommends OP follow up - no plans for LHC this admit. AM Cr 0.45, K 4.3, Na 134. Discussed with CONTRACT SERVICEMAN, patient is not medically ready. Requiring TPN, needs close monitoring. Continued IV Zosyn, GS following. Physical Exam: BP 104/71 (BP Location: Left arm, Patient Position: Lying) Pulse 68 Temp 98.4 degrees F (36.9 degrees C) (Oral) Resp 18 Ht 5' 10 Wt 78.9 kg (174 lb) SpO2 94% BMI 24.97 kg/m General: NAD Eyes: EOMI, sclera clear ENT: neck supple Cardiovascular: Regular rate, no murmur Respiratory: Clear to auscultation, symmetric air entry Gastrointestinal: Soft, non distended, positive bowel sounds. Midline incision with nichol, mild postop erythema but no purulent drainage. Ostomy in place. Genitourinary: no CVA tenderness Musculoskeletal: no major joint deformity Skin: warm, dry, no LE edema Neuro: Alert, oriented x3, no focal motor deficits Psych: Mood appropriate Current Medications: enoxaparin (LOVENOX) injection 40 mg Subcutaneous Daily insulin lispro 0-30 Units Subcutaneous Q4H [facility] metoprolol tartrate 50 mg Oral BID piperacillin-tazobactam (ZOSYN) extended infusion 3.375 g Intravenous Q8H sodium chloride (PF) 10 mL Intracatheter Q8H [facility] Labs, Imaging and Studies reviewed: Results from last 7 days Lab Units 03/25/25 0456 03/24/2541703/23/25423 WBC K/mcL 11.06* 8.11 9.65 HGB g/dL 11.5* 11.7* 12.4 HCT % 35.1* 37.2 39.6 PLT K/mcL 385 393 464* Results from last 7 days Lab Units 03/25/25 0456 03/24/25 1604 03/24/258 03/23/25 0424 03/21/25 0912 03/19/25 0658 SODIUM mmol/L 134* -- 135 135 < > 138 POTASSIUM mmol/L 4.3 4.2 3.9 3.6 < > 3.6 CHLORIDE mmol/L 103 -- 101 100 < > 103 BICARB mmol/L 23 -- 26 27 < > 25 BUN mg/dL 6* -- 5* 3* < > 9 CREATININE mg/dL 0.45 -- 0.48 0.51 < > 0.47 EGFR mL/min/1.73 m2 110 -- 109 107 < > 109 GLUCOSE mg/dL 106* -- 110* 99 < > 131* CALCIUM mg/dL 8.6 -- 8.5 8.6 < > 8.4 PHOSPHORUS mg/dL -- -- 2.7 3.6 -- 2.7 < > = values in this interval not displayed. Results from last 7 days Lab Units 03/24/2541703/19/25 0658 ALT U/L 9 10 AST U/L 21 12 ALK PHOS U/L 76 61 BILIRUBIN TOTAL mg/dL 0.8 0.5 AUTHENTICATED BY LEW GROSS, ON 03/25/2025 12:19:29 [facility] 03-24-2025 Note CLINIC SURGERY PROGR ESS NOTE Patient Name: Jose [facility]: [id number] ASSESSMENT AND PLAN Jose Lind is a 59 y.o. female with history of former smoker, s/p breast reduction, colon polyps, diverticulitis who [facility] with worsening abdominal pain for a week. OSH CTAP: acute sigmoid diverticulitis with kay perforation and pelvic phlegmon, measuring 9.5 x 3.5cm Perforated Diverticulitis - S/p ex-lap with diverting sigmoid colostomy and abdominal washout on 03/16 - Ostomy w/ stool after ostomy katlin removal 03/23 - ET following, appreciate their assistance - DC NGT - Start CLD - Cardiology planning on heart cath, please hold for now as needs possible perc drain and ostomy has not had output yet - IR c/s, unable to access pelvic fluid collection - Restart zosyn - PT/OT/CM for dispo - Continue TPN till diet can be advanced - Interval rescan at end of week Madi Bryant, DO General Surgery Please contact surgical international project engineer professional caster 5PM-6AM and weekends - #[phone] SUBJECTIVE NAEO. Ostomy w/ robust output after katlin removal 03/23. NGT output slowing. NGT removed at bedside. Review of Systems: All systems were reviewed and otherwise negative except for as noted above PHYSICAL EXAM VITALS BP 109/82 (BP Location: Left arm, Patient Position: Lying) Pulse 72 Temp 98.2 degrees F (36.8 degrees C) (Oral) Resp 15 Ht 5' 10 Wt 79.9 kg (176 lb 1.6 oz) SpO2 95% BMI 25.27 kg/m PHYSICAL EXAM General: Awake and alert, no acute distress Head: Normocephalic Eyes: EOM grossly intact Neck: Trachea midline Cardiovascular: Hemodynamically stable Pulmonary: Nonlabored breathing Extremities: No obvious deformities, warm and well perfused Skin: Dry and intact, no obvious rash Neurological: No gross focal deficits, answering questions appropriately GI: Abd soft, appropriately tender, tympany on percussion, ostomy with pink mucosa w/ stool o/p, C/D/I dressing, IMAGING Recent diagnostic imaging/reports reviewed. Pertinent findings may be listed above. Please correlate with formal radiology reads. LABS Laboratory studies ordered and reviewed. Pertinent findings may be listed below: Hgb: 11.7 03/24/25 WBC: 8.11 03/24/25 Plts: 393 03/24/25 Na: 135 03/24/25 K: 3.9 03/24/25 Cr: 0.48 03/24/25 INR: - - 03/24/25 UA obtained: pending 03/24/25 AUTHENTICATED BY MADI BRYANT, ON 03/24/2025 10:29:08 [facility] 03-24-2025 Note [facility] Inpatient Pro lokesh Note 03/24/2025 Jose Lind 1965 [id number] Assessment/Plan: Jose Lind is a 59 y.o. female with a history of diverticulosis who presented to [place] ED for abdominal pain, distention found to have perforated diverticulitis. [facility] for general surgery evaluation s/p ex-lap with bowel resection and ostomy 03/16/[address] Carrillo. Course complicated by post-op ileus, intermittent tachycardia, and abnormal stress test. Diverticulitis with Perforation: With acute onset of abdominal pain 03/15/25. CTAP 03/16/2025 showed acute sigmoid diverticulitis with perforation, pelvic phlegmon. S/p ex-lap with bowel resection and ostomy 03/16/[address] Carrillo (general surgery). Repeat CTAP 03/22/2025 showed developing abscesses in the pelvis. IR unable to place drain. Restarted on Zosyn. General surgery planning interval CT scan later in week. Intermittent Tachycardia: likely multifactorial from pain, stress, electrolyte disturbance, infection, possible ischemic component. HR up to 130-140's intermittently. Multiple EKGs have shown SVT, atrial tachycardia, sinus tachycardia, PVCs. TTE 03/19/25 EF 43%, global hypokinesis. Cardiology initiated BB. Abnormal stress test: PET stress 03/20/25 significantly abnormal and suggestive of LAD disease. Cardiology planning LHC while inpatient, likely week of 03/23/25. Monitor on tele. MACE/MINS monitoring: POD#1 trop 15, POD#2 Trop 15. No baseline obtained prior to surgery. Patient without chest pain or SOB. Cardiac work-up as above. Postoperative Ileus: KUB 03/17/25 with possible postoperative ileus vs low grade partial SBO. Patient without flatulence. NG tube placed on 03/18/25. Remains NPO. TPN started 03/23/2025. Surgery managing. Code status: Full DVT Prophylaxis: Lovenox Current living situation: Home Expected Disposition: likely home, therapy consulted Estimated discharge date: TBD Medically Ready for Discharge: no - pending ileus and heart cath Subjective: Patient resting comfortably this morning, no overnight events. Vital trends and labs stable this morning. IR reviewed imaging yesterday and unable to place a drain. She is continued on IV Zosyn and imagine there will be an interval CT scan ordered later this week to reevaluate size of fluid collection. NG tube removed on a clear liquid diet. TPN and diet advancement per surgery. Patient has IV Dilaudid available as needed which is being used occasionally. Physical Exam: BP 109/82 (BP Location: Left arm, Patient Position: Lying) Pulse 63 Temp 98.2 degrees F (36.8 degrees C) (Oral) Resp 16 Ht 5' 10 Wt 79.9 kg (176 lb 1.6 oz) SpO2 92% BMI 25.27 kg/m General: NAD Eyes: conjugate gaze, sclera clear, +NG ENT: neck supple Cardiovascular: Regular rate. Respiratory: Clear to auscultation, symmetric air entry. Gastrointestinal: mild TTP. Mild distention. Hypoactive BS. Colostomy in place. Genitourinary: no CVA tenderness Musculoskeletal: no major joint deformity Skin: warm, dry, no LE edema Neuro: Alert, oriented x3, no focal motor deficits Psych: Mood appropriate Current Medications: enoxaparin (LOVENOX) injection 40 mg Subcutaneous Daily insulin lispro 0-30 Units Subcutaneous Q4H [facility] magnesium sulfate IVPB/IV replacement 2 g Intravenous Once metoprolol 10 mg Intravenous Q6H [facility] piperacillin-tazobactam (ZOSYN) extended infusion 3.375 g Intravenous Q8H potassium chloride 20 mEq Intravenous Once sodium chloride (PF) 10 mL Intracatheter Q8H [facility] Labs, Imaging and Studies reviewed: Results from last 7 days Lab Units 03/24/25 0418 03/23/25 0424 03/22/25 0414 WBC K/mcL 8.11 9.65 10.01 HGB g/dL 11.7* 12.4 11.3* HCT % 37.2 39.6 34.1* PLT K/mcL 393 464* 415* Results from last 7 days Lab Units 03/24/2541703/23/254 03/22/2541303/21/25 0912 03/19/2558 SODIUM mmol/L 135 135 135 < > 138 POTASSIUM mmol/L 3.9 3.6 3.4* < > 3.6 CHLORIDE mmol/L 101 100 101 < > 103 BICARB mmol/L 26 27 26 < > 25 BUN mg/dL 5* 3* 3* < > 9 CREATININE mg/dL 0.48 0.51 0.47 < > 0.47 EGFR mL/min/1.73 m2 109 107 109 < > 109 GLUCOSE mg/dL 110* 99 103* < > 131* CALCIUM mg/dL 8.5 8.6 8.1* < > 8.4 PHOSPHORUS mg/dL 2.7 3.6 -- -- 2.7 < > = values in this interval not displayed. Results from last 7 days Lab Units 03/24/2541703/19/2558 03/18/25 025 ALT U/L 9 10 13 AST U/L 21 12 11 ALK PHOS U/L 76 61 66 BILIRUBIN TOTAL mg/dL 0.8 0.5 0.6 AUTHENTICATED BY MELISSA PRADHAN ON 03/24/2025 09:08:36 [facility] 03-24-2025 Note Attestation signed by Raz Lerner MD at 03/24/2025 4:58 PM I personally performed a [id number] diagnostic evaluation on this patient within 24 hours of the Resident's evaluation. I agree with the care plan documented by the Resident with the following additions/comments. Assessment/Plan: Abnormal stress test: Postoperative minimal elevation in troponin 15 --> 15 without clinical ACS Prior to hospitalization patient reports high functional status without chest discomfort, dyspnea or typical angina PET MPI 03/20/2025 with medium sized predominately fixed mid to apical anterior and anteroseptal defect with abnormal wall motion to either 2 infarction or resting ischemia; normal resting and stress myocardial blood flow within the perfusion defect may reflect resting ischemia rather than infarction CMR 03/23/2025 nonischemic cardiomyopathy LV ejection fraction 45% Patient currently with recent perforated diverticulitis exploratory laparotomy with diverting sigmoid colostomy, ostomy with planned percutaneous drainage and ostomy Initial plan for consideration of left heart catheterization to evaluate abnormal PET MPI however patient without typical anginal symptoms, ischemic ECG change and given ongoing use of antibiotic and possibility of percutaneous drainage and ostomy will delay left heart catheterization and discussed with Mr. Lind regarding noninvasive anatomic assessment of LAD distribution with CCTA, prior PET MPI CT attenuation images demonstrate moderate coronary calcification Raz Lerner MD, [facility] Rounder Resident Progress Note Patient Name: Jose Lind : 1965 Admit Date: [id number] Assessment and Plan 59 y.o. female with a past medical history of diverticulosis, former smoker with 20 pack years who [facility] as a transfer for general surgery evaluation, found to have perforated diverticulitis with pelvic phlegmon, s/p ex-lap with diverting sigmoid colostomy and abdominal washout. Cardiology was consulted 03/18 for intermittent tachycardia post-operatively and elevated troponin. PET stress 03/20 abnormal, cardiac MRI viability study 03/23 consistent with NICM. Plan for CCTA 03/25, possible LHC pending results. Elevated troponin Suspected CAD - Troponin trend post-op 03/17 15-> 15 - PET Stress 03/20/25 - abnormal, medium to large sized predominately fixed mid to apical anterior, apical septal and mid anteroseptal defect with abnormal wall motion consistent with either infarction or resting ischemia. Findings of normal resting and stress myocardial blood flow within the perfusion defect suggest findings reflect resting ischemia rather than infarction. - Cardiac MRI viability study 03/23 c/w NICM. Late gadolinium imaging demonstrates patchy mid myocardial enhancement in the basal septum and mid inferior RV insertion site. No evidence of infarct or myocardial infiltrate. -- Initial plan for LHC, however after further review of stress testing and discussion with patient (who would like to avoid another invasive procedure if able), will plan to obtain CCTA tomorrow. If this shows a lesion that warrants intervention, timing of LHC will have to await surgery clearance - surgery planning for interval re-scan for intraperitoneal fluid collections at end of week. Paroxysmal tachycardia - Suspected to be driven by sympathetic overactivity from surgery/pain/stress/infection as well as electrolyte imbalances in the post-op setting - Multiple EKGs obtained showing varying rhtyhms: SVT, atrial tachycardia, sinus tachycardia, and sinus with PVC's -- Was placed on IV lopressor (due to NPO) 5mg q6h, increased to 7.5mg q6h on 03/22. Increased to 10mg q6h 03/24. Goal K > 4, Mg < 2 HFmrEF - Suspect due to ischemic cardiomyopathy. Biatrial enlargement does suggest possible occult longstanding Afib - TTE 03/19/25 with EF 43%, grade 1 diastolic dysfunction. Bi-atrial enlargement. - PET Stress 03/20/25 with EF 30% -- Will add in GDMT as clinical course and PO status allows. All care and management plans will be discussed with the attending on service. Please see attending attestation for final recommendations. Des Kauffman DO 7:50 AM 03/24/25 Subjective [facility] telemetry reviewed. NSR with occasional PVC's. NAEO. Patient seen and examined at bedside. Denies any chest pain, SOB. Discussed pursuing a coronary angiography study to potentially avoid a heart catheterization and patient would like to go this route. She is understanding that if a lesion is found that warrants intervention, she may still have to undergo heart cath. Physical Exam Vital Signs: BP 111/66 (BP Location: Left arm, Patient Position: Lying) Pulse 68 Temp 98.4 degrees F (36.9 deg (more content not included)... [facility] 03-23-2025 Note [facility] Inpatient Pro lokesh Note 03/23/2025 Jose Lind 1965 [id number] Assessment/Plan: Jose Lind is a 59 y.o. female with a history of diverticulosis who presented to [place] ED for abdominal pain, distention found to have perforated diverticulitis. [facility] for general surgery evaluation s/p ex-lap with bowel resection and ostomy 03/16/[address] Carrillo. Course complicated by post-op ileus, intermittent tachycardia, and abnormal stress test. Diverticulitis with Perforation: With acute onset of abdominal pain 03/15/25. CTAP 03/16/2025 showed acute sigmoid diverticulitis with perforation, pelvic phlegmon. S/p ex-lap with bowel resection and ostomy 03/16/[address] Carrillo (general surgery). Repeat CTAP 03/22/2025 showed developing abscesses in the pelvis. IR consulted for drain placement. Restarted on Zosyn. General surgery following. Intermittent Tachycardia: likely multifactorial from pain, stress, electrolyte disturbance, infection, possible ischemic component. HR up to 130-140's intermittently. Multiple EKGs have shown SVT, atrial tachycardia, sinus tachycardia, PVCs. TTE 03/19/25 EF 43%, global hypokinesis. Cardiology initiated BB. Abnormal stress test: PET stress 03/20/25 significantly abnormal and suggestive of LAD disease. Cardiology planning LHC while inpatient, likely week of 03/23/25. Monitor on tele. MACE/MINS monitoring: POD#1 trop 15, POD#2 Trop 15. No baseline obtained prior to surgery. Patient without chest pain or SOB. Cardiac work-up as above. Postoperative Ileus: KUB 03/17/25 with possible postoperative ileus vs low grade partial SBO. Patient without flatulence. NG tube placed on 03/18/25. Remains NPO. TPN started 03/23/2025. Surgery managing. Code status: Full DVT Prophylaxis: Lovenox Medication Reconciliation: Reviewed using Per patient, at bedside, patient takes no home medications Current living situation: Home Expected Disposition: likely home, therapy consulted Estimated discharge date: TBD Medically Ready for Discharge: no - pending ileus and heart cath Subjective: Patient resting in bed, has had bowel output through her ostomy. Repeat CTAP yesterday revealed likely developing pelvic abscesses. IR consulted to evaluate for drainage and surgery moving forward with TPN. Restarted on Zosyn. Physical Exam: BP 103/82 (BP Location: Right arm, Patient Position: Lying) Pulse 73 Temp 98.4 degrees F (36.9 degrees C) (Oral) Resp 16 Ht 5' 10 Wt 81.6 kg (180 lb) SpO2 94% BMI 25.83 kg/m General: NAD Eyes: conjugate gaze, sclera clear, +NG ENT: neck supple Cardiovascular: Regular rate. Respiratory: Clear to auscultation, symmetric air entry. Gastrointestinal: mild TTP. Mild distention. Hypoactive BS. Colostomy in place. Genitourinary: no CVA tenderness Musculoskeletal: no major joint deformity Skin: warm, dry, no LE edema Neuro: Alert, oriented x3, no focal motor deficits Psych: Mood appropriate Current Medications: enoxaparin (LOVENOX) injection 40 mg Subcutaneous Daily [START ON 03/24/2025] insulin lispro 0-30 Units Subcutaneous Q4H [facility] metoprolol 10 mg Intravenous Q6H [facility] piperacillin-tazobactam (ZOSYN) extended infusion 3.375 g Intravenous Q8H potassium chloride SA 20 mEq Oral Once potassium chloride SA 20 mEq Oral Once Labs, Imaging and Studies reviewed: Results from last 7 days Lab Units 03/23/2542303/22/2541303/21/25 0912 WBC K/mcL 9.65 10.01 10.01 HGB g/dL 12.4 11.3* 11.5* HCT % 39.6 34.1* 36.0 PLT K/mcL 464* 415* 394 Results from last 7 days Lab Units 03/23/25 0424 03/22/25 0414 03/21/25 0912 03/19/25 0658 03/18/25 0251 SODIUM mmol/L 135 135 137 138 131* POTASSIUM mmol/L 3.6 3.4* 3.7 3.6 3.7 CHLORIDE mmol/L 100 101 100 103 99 BICARB mmol/L 25 25 23 BUN mg/dL 3* 3* 3* 9 10 CREATININE mg/dL 0.51 0.47 0.43 0.47 0.59 EGFR mL/min/1.73 m2 107 109 112 109 103 GLUCOSE mg/dL 99 103* 112* 131* 125* CALCIUM mg/dL 8.6 8.1* 8.5 8.4 8.7 PHOSPHORUS mg/dL 3.6 -- -- 2.7 2.1* Results from last 7 days Lab Units 03/19/25 0658 03/18/25 0251 03/17/25 0608 ALT U/L 10 13 13 AST U/L 12 11 14 ALK PHOS U/L 61 66 68 BILIRUBIN TOTAL mg/dL 0.5 0.6 0.9 AUTHENTICATED BY MELISSA PRADHAN, ON 03/23/2025 13:37:46 [facility] 03-23-2025 Note CLINIC SURGERY PROGR ESS NOTE Patient Name: Jose Lind ASSESSMENT AND PLAN Jose Lind is a 59 y.o. female with history of former smoker, s/p breast reduction, colon polyps, diverticulitis who [facility] with worsening abdominal pain for a week. OSH CTAP: acute sigmoid diverticulitis with kay perforation and pelvic phlegmon, measuring 9.5 x 3.5cm Perforated Diverticulitis - S/p ex-lap with diverting sigmoid colostomy and abdominal washout on 03/16 - Ostomy w/ bowel sweat; AROBF - ET consult for ostomy teaching, ostomy katlin in place, can remove early this week once having bowel fxn - NGT ILWS - NPO, mIVF; please keep accurate measure of ice intake - Cardiology planning on heart cath, please hold for now as needs possible perc drain and ostomy has not had output yet - IR c/s, unable to access pelvic fluid collection - Restart zosyn - PT/OT/CM for dispo - PICC/TPN today - Interval rescan at end of week Madi Bryant, DO General Surgery Please contact surgical international project engineer professional caster 5PM-6AM and weekends - #[phone] SUBJECTIVE NAEO. Still w/o ostomy o/p/ NG bilious. Review of Systems: All systems were reviewed and otherwise negative except for as noted above PHYSICAL EXAM VITALS BP 103/82 (BP Location: Right arm, Patient Position: Lying) Pulse 73 Temp 98.4 degrees F (36.9 degrees C) (Oral) Resp 16 Ht 5' 10 Wt 81.6 kg (180 lb) SpO2 94% BMI 25.83 kg/m PHYSICAL EXAM General: Awake and alert, no acute distress Head: Normocephalic Eyes: EOM grossly intact Neck: Trachea midline Cardiovascular: Hemodynamically stable Pulmonary: Nonlabored breathing Extremities: No obvious deformities, warm and well perfused Skin: Dry and intact, no obvious rash Neurological: No gross focal deficits, answering questions appropriately GI: Abd soft, appropriately tender, tympany on percussion, ostomy with pink mucosa w/o output, C/D/I dressing, IMAGING Recent diagnostic imaging/reports reviewed. Pertinent findings may be listed above. Please correlate with formal radiology reads. LABS Laboratory studies ordered and reviewed. Pertinent findings may be listed below: Hgb: 12.4 03/23/25 WBC: 9.65 03/23/25 Plts: 464 03/23/25 Na: 135 03/23/25 K: 3.6 03/23/25 Cr: 0.51 03/23/25 INR: - - 03/23/25 UA obtained: pending 03/23/25 AUTHENTICATED BY MADI BRYANT, ON 03/23/2025 11:27:35 [facility] 03-23-2025 Note Attestation signed by Marie Carney DO at 03/23/2025 12:23 PM I personally performed a [id number] diagnostic evaluation on this patient on the same calendar day as the housestaff's evaluation. I agree with the care plan documented by the housestaff with the following additions/comments: IMP: HFrEF. New diagnosis. PET stress abnormal with a mostly fixed defect however unclear if this is infarction versus resting ischemia. Remains pain-free Elevated troponin postop. Probably demand ischemia related to postop state and SVT Paroxysmal atrial tachycardia. Trigger likely related to hyperadrenergic state postoperatively Status post exploratory lap, diverting sigmoid colostomy, abdominal washout 03/16/2025 for diverticular perforation. REC: Will check a cardiac MRI to determine if she has infarction versus viability in the LAD territory Per surgery the patient may need a possible percutaneous drain for a fluid collection so we will defer left heart cath until surgical procedures have been completed She had some more arrhythmia last evening. Will increase Lopressor to 10 mg IV every 6 hours Aspirin when able GDMT when able Marie Carney DO, [facility] Rounding nurse: Office: Resident Progress Note Patient Name: Jose Lind : 1965 Admit Date: [id number] Assessment and Plan 59 y.o. female with a past medical history of diverticulosis, former smoker with 20 pack years who [facility] as a transfer for general surgery evaluation, found to have perforated diverticulitis with pelvic phlegmon, s/p ex-lap with diverting sigmoid colostomy and abdominal washout. Cardiology was consulted 03/18 for intermittent tachycardia post-operatively and elevated troponin. PET stress 03/20 abnormal, planning for LHC prior to discharge. Elevated troponin Suspected CAD - Troponin trend post-op 03/17 15-> 15 - PET Stress 03/20/25 - abnormal, medium to large sized predominately fixed mid to apical anterior, apical septal and mid anteroseptal defect with abnormal wall motion consistent with either infarction or resting ischemia. Findings of normal resting and stress myocardial blood flow within the perfusion defect suggest findings reflect resting ischemia rather than infarction. -- Planning for LHC prior to discharge, coordinating with surgical team regarding timing - planning for interval re-scan for intraperitoneal fluid collections at end of week. Will obtain MR viability study in interim. Paroxysmal tachycardia - Suspected to be driven by sympathetic overactivity from surgery/pain/stress/infection as well as electrolyte imbalances in the post-op setting - Multiple EKGs obtained showing varying rhtyhms: SVT, atrial tachycardia, sinus tachycardia, and sinus with PVC's -- Was placed on IV lopressor (due to NPO) 5mg q6h, increased to 7.5mg q6h on 03/22. Goal K > 4, Mg < 2 HFmrEF - Suspect due to ischemic cardiomyopathy. Biatrial enlargement does suggest possible occult longstanding Afib - TTE 03/19/25 with EF 43%, grade 1 diastolic dysfunction. Bi-atrial enlargement. - PET Stress 03/20/25 with EF 30% -- Will add in GDMT as clinical course and PO status allows. All care and management plans will be discussed with the attending on service. Please see attending attestation for final recommendations. Des Jamari, DO 7:55 AM 03/23/25 Subjective [facility] telemetry reviewed. Episode around 1900 of tachcyardia, tele strips showing atrial tachycardia / SVT. Otherwise remained in NSR with rate in 70's. CT 03/22 with post-operative fluid collections in the pelvis which may represent developing abscesses. Evaluated by IR who felt fluid collections could not be targeted for a drain. Patient seen and examined at bedside. My first time meeting her but appears in good spirits making some jokes. Does endorse some abdominal distension and leaking around ostomy but said the RN is working on it. She is excited to get some nutrition as the plan is to start TPN soon. Discussed plan for LHC once plan is finalized by surgery and IR. She is understanding. Denies any chest pain, palpitations, SOB. Physical Exam Vital Signs: BP 130/86 (BP Location: Right arm, Patient Position: Lying) Pulse 75 Temp 98.1 degrees F (36.7 degrees C) (Oral) Resp (!) 19 Ht 5' 10 Wt 81.6 kg (180 lb) SpO2 (!) 88% BMI 25.83 kg/m General: age appropriate female in NAD Eyes: EOM grossly intact, sclera white ENT: trachea midline, Cardiovascular: regular rate and rhythm without murmurs/rubs/gallops, no JVD appreciated Respiratory: clear to auscultation bilaterally without wheezes/rhonchi/rales Musculoskeletal: no peripheral edema Skin: warm, dry Neuro: alert and oriented x 4 (more content not included)... [facility] 03-22-2025 Note [facility] Inpatient Pro lokesh Note 03/22/2025 Jose Lind 1965 [id number] Assessment/Plan: Jose Lind is a 59 y.o. female with a history of diverticulosis who presented to [place] ED for abdominal pain, distention found to have perforated diverticulitis. [facility] for general surgery evaluation s/p ex-lap with bowel resection and ostomy 03/16/[address] Carrillo. Course complicated by post-op ileus, intermittent tachycardia, and abnormal stress test. Diverticulitis with Perforation: With acute onset of abdominal pain 03/15/25. At [facility]: CT A/p showed acute sigmoid diverticulitis with perforation, pelvic phlegmon, and pneumoperitoneum. S/p ex-lap with bowel resection and ostomy 03/16/[address] Carrillo (general surgery). S/p 5 days of Zosyn. General surgery surgery following. Intermittent Tachycardia: likely multifactorial from pain, stress, electrolyte disturbance, infection, possible ischemic component. HR up to 130-140's intermittently. Multiple EKGs have shown SVT, atrial tachycardia, sinus tachycardia, PVCs. TTE 03/19/25 EF 43%, global hypokinesis. Cardiology initiated BB. Abnormal stress test: PET stress 03/20/25 significantly abnormal and suggestive of LAD disease. Cardiology planning LHC while inpatient, likely week of 03/23/25. Monitor on tele. MACE/MINS monitoring: POD#1 trop 15, POD#2 Trop 15. No baseline obtained prior to surgery. Patient without chest pain or SOB. Cardiac work-up as above. Postoperative Ileus: KUB 03/17/25 with possible postoperative ileus vs low grade partial SBO. Patient without flatulence. IVF in place. NPO. NG tube placed on 03/18/25. Management per surgery. Code status: Full DVT Prophylaxis: Lovenox Medication Reconciliation: Reviewed using Per patient, at bedside, patient takes no home medications Current living situation: Home Expected Disposition: likely home, therapy consulted Estimated discharge date: TBD Medically Ready for Discharge: no - pending ileus and heart cath Subjective: Patient is resting comfortably, no significant bowel activity, NG tube in place. Comfortable on room air, hemodynamics are stable, replating potassium and magnesium to optimize given PVCs on telemetry-otherwise CBC/CMP stable. Anticipating heart cath sometime this week. Physical Exam: BP (!) 139/93 (BP Location: Right arm, Patient Position: Lying) Pulse 66 Temp 98.4 degrees F (36.9 degrees C) (Oral) Resp 17 Ht 5' 10 Wt 81.6 kg (180 lb) SpO2 96% BMI 25.83 kg/m General: NAD Eyes: conjugate gaze, sclera clear, +NG ENT: neck supple Cardiovascular: Regular rate. Respiratory: Clear to auscultation, symmetric air entry. Gastrointestinal: mild TTP. Mild distention. Hypoactive BS. Colostomy in place. Genitourinary: no CVA tenderness Musculoskeletal: no major joint deformity Skin: warm, dry, no LE edema Neuro: Alert, oriented x3, no focal motor deficits Psych: Mood appropriate Current Medications: enoxaparin (LOVENOX) injection 40 mg Subcutaneous Daily metoprolol 7.5 mg Intravenous Q6H VIGNESH Labs, Imaging and Studies reviewed: Results from last 7 days Lab Units 03/22/2541303/21/25 0912 03/19/25 0658 WBC K/mcL 10.01 10.01 9.64 HGB g/dL 11.3* 11.5* 11.5* HCT % 34.1* 36.0 35.5* PLT K/mcL 415* 394 361 Results from last 7 days Lab Units 03/22/2541303/21/25 0903/19/25 0658 03/18/25 02503/17/25 0608 SODIUM mmol/L 135 137 138 131* 132* POTASSIUM mmol/L 3.4* 3.7 3.6 3.7 4.8 CHLORIDE mmol/L 101 100 103 99 100 BICARB mmol/L 25 25 23 24 BUN mg/dL 3* 3* 9 10 10 CREATININE mg/dL 0.47 0.43 0.47 0.59 0.58 EGFR mL/min/1.73 m2 109 112 109 103 104 GLUCOSE mg/dL 103* 112* 131* 125* 134* CALCIUM mg/dL 8.1* 8.5 8.4 8.7 8.8 PHOSPHORUS mg/dL -- -- 2.7 2.1* 2.2* Results from last 7 days Lab Units 03/19/25 0658 03/18/25 02503/17/25 0608 ALT U/L 10 13 13 AST U/L 12 11 14 ALK PHOS U/L 61 66 68 BILIRUBIN TOTAL mg/dL 0.5 0.6 0.9 Results from last 7 days Lab Units 03/16/25 1107 INR 1.1 AUTHENTICATED BY MELISSA PRADHAN, ON 03/22/2025 13:05:36 [facility] 03-22-2025 Note General Cardiology I npatient Follow-up Heart & Vascular [facility] 03/22/2025 Kinza Jacob, ANGELLA [facility] Rounding RN [phone] Patient: Jose Lind Date of : 1965 (59 y.o.) PCP: Shaina, Physician Proctologist: Virgie Perpetual assessment: Patient is a 59 y.o. female with a past medical history significant for diverticulosis, perforated sigmoid diverticulitis s/p ex-lap with diverting colostomy and abdominal washout (03/16), former smoker with 20 pack years who [facility] as a transfer for general surgery evaluation. Surgery following. Cardiology consulted for post-op intermittent tachycardia and elevated troponin. Plan for LHC prior to discharge, appreciate further recommendations from surgical team regarding timing and aspirin/plavix initiation. Assessment/Plan: Intermittent Tachycardia - [facility] with diverticulosis, perforated sigmoid diverticulitis status post ex lap with diverting colostomy and abdominal washout on 03/16/2025. - The etiology of her intermittent sinus tachycardia is likely multifactorial and stemming from sympathetic overactivity from pain / stress, electrolyte disturbance, and infection from perforated sigmoid diverticulitis - Multiple EKGs obtained with varying rhythms depicted on different strips: SVT, atrial tachycardia, sinus tachycardia, sinus rhythm with PVCs. - Telemetry reviewed, currently normal sinus tachycardia with HR in the 130s, asymptomatic. Noted mostly in the 70-80s overnight, with few episodes of tachycardia into the 120-130s. - She denies any personal cardiac history, family history notable for CVA in mother and GA in father & brother - S/p stress test (06/2002) negative for ischemia, LVEF 65% - S/p stress test (12/2005) negative for ischemia, LVEF 55% - S/p stress echo (10/2010) negative for ischemia, LVEF 55% - TSH with reflex T4 WNL. NT-Pro BNP of 479 (03/16) - TTE (03/19): LVEF 43%, grade 1 diastolic dysfunction - On Lopressor 5mg q6hrs given she is n.p.o with NG tube in place. Will increase to 7.5mg q6hrs. - Patient's NG status precludes use of initiating GDMT therapy. Will consider to fold in Lisinopril once able to tolerate p.o intake. - PET Stress 03/20/2025 is significantly abnormal and suggestive of LAD disease. Although defect mostly fixed, concern for resting ischemia. - Plan for LHC this admission, not urgent as she is asymptomatic and recovering from recent surgery, appreciate further recommendations from surgical team regarding timing of LHC and initiation of aspirin/Plavix therapies. - Cardiology will continue to follow Subjective Patient denies any cardiac concerns overnight, denies chest pain or shortness of breath. States that she did see general surgery this morning, states that her understanding was that the heart cath would occur after removal of her NG tube. I sent a message to the technical operations vice president this morning, await response. She was encouraged to let nursing staff know if she has any further cardiac questions or concerns. ECG 12 Lead Final Result by Interface, Lab Results In [place] [facility] (03/20/2025 1901) Echocardiogram complete w contrast Final Result by Des Connor MD (03/19/2025 1109) Current Medications[1] Objective: Physical Examination: BP (!) 139/93 (BP Location: Right arm, Patient Position: Lying) Pulse 66 Temp 98.4 degrees F (36.9 degrees C) (Oral) Resp 17 Ht 5' 10 Wt 81.6 kg (180 lb) SpO2 96% BMI 25.83 kg/m Constitutional: Alert, well appearing, not in distress.? Eyes: Conjunctivae/corneas clear. Lungs: Clear to auscultation, no wheezes, rales or rhonchi. Cardiovascular: Tachycardic rate and regular rhythm, S1 and S2 normal, no murmurs noted, no carotid bruit, no pedal edema, no JVD. Abdomen: Soft, nontender. NG tube intact Skin: Normal coloration and turgor; no rashes or lesions on limited skin examination. Musculoskeletal: Normal Range of Motion (ROM) Psych: Oriented to time, person, and place; appropriate mood. Lab Results Component Value Date CHOL 110 03/18/2025 LDLCALC 67 03/18/2025 TRIG 100 03/18/2025 HDL 23 (L) 03/18/2025 Serum creatinine: 0.47 mg/dL 03/22/25 0414 Estimated creatinine clearance: 137.6 mL/min [1] Current Facility-Administered Medications Medication Dose Route Frequency Provider Last Rate Last Admin benzocaine (HURRICAINE) 20 % spray 2 spray 2 spray Mouth/Throat BID PRN Sandy Carrillo MD 2 spray at 03/22/25 0740 dextrose 5 % in lactated ringers infusion 125 mL/hr Intravenous Continuous Mariano Titus MD 125 mL/hr at 03/22/25 1205 125 mL/hr at 03/22/25 1205 enoxaparin (LOVENOX) syringe 40 mg 40 mg Subcutaneous Daily Tamica Palm MD 40 mg at 03/22/25 0826 HYDROmorphone (DILAUDID) injection 0.5-1 mg 0.5-1 mg Intravenous Q3H PRN Tamica Palm MD 1 mg at 03/22/25 0433 metoprolol (LOPRESSOR) injection (more content not included)... [facility] 03-22-2025 Note CLINIC SURGERY PROGR ESS NOTE Patient Name: Jose Lind ASSESSMENT AND PLAN Jose Lind is a 59 y.o. female with history of former smoker, s/p breast reduction, colon polyps, diverticulitis who [facility] with worsening abdominal pain for a week. OSH CTAP: acute sigmoid diverticulitis with kay perforation and pelvic phlegmon, measuring 9.5 x 3.5cm Perforated Diverticulitis - S/p ex-lap with diverting sigmoid colostomy and abdominal washout on 03/16 - Ostomy w/ bowel sweat; AROBF - ET consult for ostomy teaching, ostomy katlin in place, can remove early this week once having bowel fxn - NGT ILWS - NPO, mIVF; please keep accurate measure of ice intake - Cardiology planning on heart cath early this week - PT/OT/CM for dispo Mariano Titus MD General Surgery Please contact surgical international project engineer professional caster 5PM-6AM and weekends - #[phone] SUBJECTIVE Still awaiting ostomy fxn. Denies nausea. Feels less bloated. Review of Systems: All systems were reviewed and otherwise negative except for as noted above PHYSICAL EXAM VITALS BP 135/76 (BP Location: Right arm, Patient Position: Lying) Pulse 62 Temp 97.9 degrees F (36.6 degrees C) (Oral) Resp 18 Ht 5' 10 Wt 81.6 kg (180 lb) SpO2 92% BMI 25.83 kg/m PHYSICAL EXAM General: Awake and alert, no acute distress Head: Normocephalic Eyes: EOM grossly intact Neck: Trachea midline Cardiovascular: Hemodynamically stable Pulmonary: Nonlabored breathing Extremities: No obvious deformities, warm and well perfused Skin: Dry and intact, no obvious rash Neurological: No gross focal deficits, answering questions appropriately GI: Abd soft, appropriately tender, tympany on percussion, ostomy with pink mucosa w/o output, C/D/I dressing, IMAGING Recent diagnostic imaging/reports reviewed. Pertinent findings may be listed above. Please correlate with formal radiology reads. LABS Laboratory studies ordered and reviewed. Pertinent findings may be listed below: Hgb: 11.3 03/22/25 WBC: 10.01 03/22/25 Plts: 415 03/22/25 Na: 135 03/22/25 K: 3.4 03/22/25 Cr: 0.47 03/22/25 INR: - - 03/22/25 UA obtained: pending 03/22/25 AUTHENTICATED BY MARIANO TITUS, ON 03/22/2025 07:19:07 [facility] 03-21-2025 Note [facility] Inpatient Pro lokesh Note 03/21/2025 Jose Lind 1965 [id number] Assessment/Plan: Jose Lind is a 59 y.o. female with a history of diverticulosis who presented to [place] ED for abdominal pain, distention, found to have diverticulitis with perforation and phlegmon. [facility] for general surgery evaluation. S/p ex-lap with bowel resection and ostomy 03/16/[address] Carrillo (general surgery). [facility] consulted for medical management, assumed care as primary on 03/21/25. Course complicated by post-op ileus, intermittent tachycardia, and abnormal stress test. Diverticulitis with Perforation: With acute onset of abdominal pain 03/15/25. At [facility]: CT A/p showed acute sigmoid diverticulitis with perforation, pelvic phlegmon, and pneumoperitoneum. S/p ex-lap with bowel resection and ostomy 03/16/[address] Carrillo (general surgery). S/p 5 days of Zosyn. General surgery surgery following. Intermittent Tachycardia: likely multifactorial from pain, stress, electrolyte disturbance, infection, possible ischemic component. HR up to 130-140's intermittently. Multiple EKGs obtained with various rhythms depicted such as SVT, atrial tachycardia, sinus tachycardia, sinus rhythm with PVCs. Mag/phos low, replaced. Echo 03/19/25 with EF 43%, grade I diastolic dysfunction, global hypokinesis of Left ventricle. Stress test as below. Cardiology initiated schedule BB, increased dose on 03/20/25 and planning addition of ACEi when able to take PO. Abnormal stress test: Pt reported family hx of early CAD. Stress checked for tachycardia and abnormal echo as above. PET stress 03/20/25 significantly abnormal and suggestive of LAD disease. Cardiology planning LHC while inpatient, likely week of 03/23/25. Monitor on tele. MACE/MINS monitoring: POD#1 trop 15, POD#2 Trop 15. No baseline obtained prior to surgery. Patient without chest pain or SOB. Cardiac work-up as above. Postoperative Ileus: KUB 03/17/25 with possible postoperative ileus vs low grade partial SBO. Patient without flatulence. IVF in place. NPO. NG tube placed on 03/18/25. Management per surgery. Hyponatremia: Na 132 postoperatively. Likely due to hypovolemia. IVF. Resolved by 03/19/25. Leukocytosis: WBC 14.34-->12.19. Likely due to above. S/p Zosyn. Resolved. Code status: Full DVT Prophylaxis: Lovenox Medication Reconciliation: Reviewed using Per patient, at bedside, patient takes no home medications Current living situation: Home Expected Disposition: likely home, therapy consulted Estimated discharge date: TBD Medically Ready for Discharge: no - pending ileus and heart cath Subjective: Patient is known to me. She is lying in bed this morning. She reports that she is feeling well currently, no nausea but still has not passed flatus. Reported abdomen is less distended. Discussed abnormal PET stress results and need for LHC this coming week. She states her brother had open heart surgery at 42 y/o. She denied any chest pain or dyspnea. All questions answered. Discussed [facility] to assume care as primary with surgery resident, surgery will continue to follow. Reviewed cardiology and surgery recommendations. Reviewed telemetry with HR 120s this morning with PVCs, spontaneously transitioned to NSR in the 70s during my exam. Today I personally reviewed prior medical records and have summarized my findings in my assessment and plan as noted above. Today I also personally reviewed recent labs including (CBC, BMP), diagnostics (stress test). High risk problems/medications/intervention s include: parenteral controlled substances (IV dilaudid PRN) Physical Exam: BP 133/83 (BP Location: Right arm, Patient Position: Lying) Pulse 84 Temp 98.3 degrees F (36.8 degrees C) (Oral) Resp (!) 19 Ht 5' 10 Wt 81.6 kg (180 lb) SpO2 (!) 81% BMI 25.83 kg/m General: NAD Eyes: conjugate gaze, sclera clear, +NG ENT: neck supple Cardiovascular: Regular rate. Respiratory: Clear to auscultation, symmetric air entry. Gastrointestinal: mild TTP. Mild distention. Hypoactive BS. Colostomy in place. Genitourinary: no CVA tenderness Musculoskeletal: no major joint deformity Skin: warm, dry, no LE edema Neuro: Alert, oriented x3, no focal motor deficits Psych: Mood appropriate Current Medications: enoxaparin (LOVENOX) injection 40 mg Subcutaneous Daily metoprolol 7.5 mg Intravenous Q6H VIGNESH Labs, Imaging and Studies reviewed: Results from last 7 days Lab Units 03/21/25 0912 03/19/25 0658 03/18/25 025 WBC K/mcL 10.01 9.64 11.74* HGB g/dL 11.5* 11.5* 11.6* HCT % 36.0 35.5* 34.5* PLT K/mcL 394 361 328 Results from last 7 days Lab Units 03/21/25 0912 03/19/25 0658 03/18/25 0251 03/17/25 0608 SODIUM mmol/L 137 138 131* 132* POTASSIUM mmol/L 3.7 3.6 3.7 4.8 CHLORIDE mmol/L 100 103 99 100 BICARB mmol/L 25 25 23 24 BUN mg/dL 3* 9 10 10 CREATININE mg/dL 0.43 0.47 0.59 0.58 EGFR m (more content not included)... [facility] 03-21-2025 Note CLINIC SURGERY PROGR ESS NOTE [id number] ASSESSMENT AND PLAN Jose Lind is a 59 y.o. female with history of former smoker, s/p breast reduction, colon polyps, diverticulitis who [facility] with worsening abdominal pain for a week. OSH CTAP: acute sigmoid diverticulitis with kay perforation and pelvic phlegmon, measuring 9.5 x 3.5cm Perforated Diverticulitis - S/p ex-lap with diverting sigmoid colostomy and abdominal washout on 03/16 - Ostomy w/ bowel sweat; AROBF - ET consult for ostomy teaching, ostomy katlin in place, can remove early this week once having bowel fxn - NGT ILWS - NPO, mIVF; please keep accurate measure of ice intake - Cardiology planning on heart cath early this week - PT/OT/CM for dispo Mariano Titus MD General Surgery Please contact surgical international project engineer professional caster 5PM-6AM and weekends - #[phone] SUBJECTIVE Feels better overall. Denies nausea. [facility] Review of Systems: All systems were reviewed and otherwise negative except for as noted above PHYSICAL EXAM VITALS BP (!) 137/109 (BP Location: Right arm, Patient Position: Lying) Pulse (!) 127 Temp 98.4 degrees F (36.9 degrees C) (Oral) Resp 18 Ht 5' 10 Wt 81.6 kg (180 lb) SpO2 94% BMI 25.83 kg/m PHYSICAL EXAM General: Awake and alert, no acute distress Head: Normocephalic Eyes: EOM grossly intact Neck: Trachea midline Cardiovascular: Hemodynamically stable Pulmonary: Nonlabored breathing Extremities: No obvious deformities, warm and well perfused Skin: Dry and intact, no obvious rash Neurological: No gross focal deficits, answering questions appropriately GI: Abd soft, appropriately tender, tympany on percussion, ostomy with pink mucosa w/o output, C/D/I dressing, IMAGING Recent diagnostic imaging/reports reviewed. Pertinent findings may be listed above. Please correlate with formal radiology reads. LABS Laboratory studies ordered and reviewed. Pertinent findings may be listed below: Hgb: 11.5 03/21/25 WBC: 10.01 03/21/25 Plts: 394 03/21/25 Na: 137 03/21/25 K: 3.7 03/21/25 Cr: 0.43 03/21/25 INR: - - 03/21/25 UA obtained: pending 03/21/25 AUTHENTICATED BY MARIANO TITUS, ON 03/21/2025 10:01:51 [facility] 03-20-2025 Note [facility] Inpatient Pro lokesh Note 03/20/2025 Joes Lind 1965 [id number] Assessment/Plan: Jose Lind is a 59 y.o. female with a history of diverticulosis who presented to [place] ED for abdominal pain, distention, found to have diverticulitis with perforation and phlegmon. [facility] for general surgery evaluation. [facility] consulted for medical management. Diverticulitis with Perforation: With acute onset of abdominal pain 03/15/25. AT [facility]: CT A/p showed acute sigmoid diverticulitis with perforation, pelvic phlegmon, and pneumoperitoneum. S/p ex-lap with bowel resection and ostomy 03/16/[address] Carrillo (general surgery) . Continued Zosyn. General surgery surgery primary. Intermittent Tachycardia: likely multifactorial from pain, stress, electrolyte disturbance and infection. HR up to 130-'s-140's intermittently. Multiple EKGs obtained with various rhythms depicted such as SVT, atrial tachycardia, sinus tachycardia, sinus rhythm with PVCs. Stress echo 2010 negative for ischemia with EF 55%. Mag/phos low, replaced. TSH wnls. Echo 03/19/25 with EF 43%, grade I diastolic dysfunction, global hypokinesis of Left ventricle. Cardiology following, initiated schedule BB, increased dose on 03/20/25. PET stress pending.Monitor on tele. MACE/MINS monitoring: POD#1 trop 15, POD#2 Trop 15. No baseline obtained prior to surgery. Patient without chest pain or SOB. Cardiac work-up as above. Postoperative Ileus: KUB on 03/17/25 with possible postoperative ileus vs low grade partial SBO. Patient without flatulence. IVF in place. NPO. NG tube placed on 03/18/25. Management per surgery. Hyponatremia: Na 132 postoperatively. Likely due to hypovolemia. IVF. Resolved by 03/19/25. Leukocytosis: WBC 14.34-->12.19. Likely due to above. Zosyn in place. Resolved. Code status: Full DVT Prophylaxis: Lovenox per primary Thank you for allowing us to participate in the care of your patient. For any questions, please call the number of the covering hospitalist listed under the treatment team in care connect. Medication Reconciliation: Reviewed using Per patient, at bedside, patient takes no home medications Current living situation: Home Expected Disposition: Home Estimated discharge date: TBD Medically Ready for Discharge: no as above Subjective: Patient is new to me. She is sitting up in bathroom washing her face. She reports that she is feeling well currently, no nausea but still has not passed flatus. Reported intermittent abdominal pain and bloating. Discussed plan for PET stress today, she denied any chest pain or dyspnea. Reviewed surgery and cardiology recs. Today I personally reviewed prior medical records and have summarized my findings in my assessment and plan as noted above. Today I also personally reviewed recent labs including (CBC, CMP), diagnostics (KUB imaging from 03/18/[address] with NG tube in place), and garden consultant/other provider recommendations (surgery 03/20/2025). High risk problems/medications/intervention s include: parenteral controlled substances (IV dilaudid) Physical Exam: BP 138/89 (BP Location: Right arm, Patient Position: Lying) Pulse 86 Temp 98.5 degrees F (36.9 degrees C) (Oral) Resp (!) 22 Ht 5' 10 Wt 81.6 kg (180 lb) SpO2 93% BMI 25.83 kg/m General: NAD Eyes: EOMI, sclera clear, +NG ENT: neck supple Cardiovascular: Regular rate. Respiratory: Clear to auscultation, symmetric air entry. On RA. Gastrointestinal: mild TTP. Mild distention. Hypoactive BS. Colostomy in place. Genitourinary: no CVA tenderness Musculoskeletal: no major joint deformity Skin: warm, dry, no LE edema Neuro: Alert, oriented x3, no focal motor deficits Psych: Mood appropriate Current Medications: enoxaparin (LOVENOX) injection 40 mg Subcutaneous Daily metoprolol 7.5 mg Intravenous Q6H VIGNESH piperacillin-tazobactam (ZOSYN) extended infusion 3.375 g Intravenous Q8H Labs, Imaging and Studies reviewed: Results from last 7 days Lab Units 03/19/25 0658 03/18/25 0251 03/17/25 0608 WBC K/mcL 9.64 11.74* 12.19* HGB g/dL 11.5* 11.6* 12.2 HCT % 35.5* 34.5* 37.9 PLT K/mcL 361 328 336 Results from last 7 days Lab Units 03/19/25 0658 03/18/25 0251 03/17/25 0608 SODIUM mmol/L 138 131* 132* POTASSIUM mmol/L 3.6 3.7 4.8 CHLORIDE mmol/L 103 99 100 BICARB mmol/L 25 23 24 BUN mg/dL 9 10 10 CREATININE mg/dL 0.47 0.59 0.58 EGFR mL/min/1.73 m2 109 103 104 GLUCOSE mg/dL 131* 125* 134* CALCIUM mg/dL 8.4 8.7 8.8 PHOSPHORUS mg/dL 2.7 2.1* 2.2* Results from last 7 days Lab Units 03/19/25 0658 03/18/25 0251 03/17/25 0608 ALT U/L 10 13 13 AST U/L 12 11 14 ALK PHOS U/L 61 66 68 BILIRUBIN TOTAL mg/dL 0.5 0.6 0.9 Results from last 7 days Lab Units 03/16/25 1107 INR 1.1 AUTHENTICATED BY KAROL AYOUB, ON 03/20/2025 12:45:33 [facility] 03-20-2025 Note CLINIC SURGERY PROGR ESS NOTE Patient Name: Jose Lind ASSESSMENT AND PLAN Jose Lind is a 59 y.o. female with history of former smoker, s/p breast reduction, colon polyps, diverticulitis who [facility] with worsening abdominal pain for a week. OSH CTAP: acute sigmoid diverticulitis with kay perforation and pelvic phlegmon, measuring 9.5 x 3.5cm Perforated Diverticulitis - S/p ex-lap with diverting sigmoid colostomy and abdominal washout on 03/16 - Ostomy w/ bowel sweat; AROBF - NGT ILWS - NPO, mIVF - ET consult for ostomy teaching, ostomy katlin in place - Continue multimodal pain control - PT/OT/CM for dispo Mariano Titus MD General Surgery Please contact surgical international project engineer professional caster 5PM-6AM and weekends - #[phone] SUBJECTIVE Feels less bloated. AROBF Review of Systems: All systems were reviewed and otherwise negative except for as noted above PHYSICAL EXAM VITALS BP 138/89 (BP Location: Right arm, Patient Position: Lying) Pulse 70 Temp 98.5 degrees F (36.9 degrees C) (Oral) Resp (!) 19 Ht 5' 10 Wt 81.6 kg (180 lb) SpO2 91% BMI 25.83 kg/m PHYSICAL EXAM General: Awake and alert, no acute distress Head: Normocephalic Eyes: EOM grossly intact Neck: Trachea midline Cardiovascular: Hemodynamically stable Pulmonary: Nonlabored breathing Extremities: No obvious deformities, warm and well perfused Skin: Dry and intact, no obvious rash Neurological: No gross focal deficits, answering questions appropriately GI: Abd soft, appropriately tender, tympany on percussion, ostomy with pink mucosa w/o output, C/D/I dressing, IMAGING Recent diagnostic imaging/reports reviewed. Pertinent findings may be listed above. Please correlate with formal radiology reads. LABS Laboratory studies ordered and reviewed. Pertinent findings may be listed below: Hgb: 11.5 03/20/25 WBC: 9.64 03/20/25 Plts: 361 03/20/25 Na: 138 03/20/25 K: 3.6 03/20/25 Cr: 0.47 03/20/25 INR: - - 03/20/25 UA obtained: pending 03/20/25 AUTHENTICATED BY MARIANO TITUS, ON 03/20/2025 10:15:53 [facility] 03-20-2025 Note Attestation signed by Bernice Tang MD at 03/20/2025 1:05 PM CARDIOLOGY CONSULTATION Bernice Tang MD, [facility] I have reviewed the history, physical, diagnosis and care plan with the resident physician. I confirm the assessment and treatment plan. I have performed my own separate complete history and physical exam on the same calendar day as theirs and it agrees with the exam and history documented by the resident in this note with the following addendum: Patient seen and examined. Resting comfortably within MGN. Denies chest pain or palpitations. On review of telemetry she had a lot more sustained episodes of atrial tachycardia overnight. Her Lopressor p.o. had to be stopped and switched to IV 5 every 6. Surprisingly her EF came back abnormal at 43% so she now needs an ischemic workup. IMPRESSION 1. 59-year-old female with no prior cardiac history comes in with perforated sigmoid diverticulitis status post exploratory lap with diverting colostomy on 03/16/2025. Now having ileus with an NG in. 2. Atrial tachycardia, asymptomatic in the 130s. Presumably from stress her body is under with the diverticulitis and perforation and ileus. 3. Cardiomyopathy with EF 43% on echo yesterday. Etiology unknown. PLAN 1. Check PET stress test to rule out ischemia as the cause of the low EF. 2. Increase Lopressor to 7.5 IV every 6. 3. Start GDMT with FAYE inhibitor after ileus better and she is able to take p.o. Resident Progress Note Patient Name: Jose Lind : 1965 Admit Date: [id number] Assessment and Plan Patient is a 59 y.o. female with a past medical history significant for diverticulosis, perforated sigmoid diverticulitis s/p ex-lap with diverting colostomy and abdominal washout (03/16), former smoker with 20 pack years who [facility] as a transfer for general surgery evaluation. Surgery following. Cardiology consulted for post-op intermittent tachycardia and elevated troponin. Intermittent Tachycardia - Etiology likely multifactorial and stemming from sympathetic overactivity from pain / stress, electrolyte disturbance, and infection from perforated sigmoid diverticulitis - Multiple EKGs obtained with varying rhythms depicted on different strips: SVT, atrial tachycardia, sinus tachycardia, sinus rhythm with PVCs - Family history notable for CVA in mother and GA in father & brother - S/p stress test (06/2002) negative for ischemia, LVEF 65% - S/p stress test (12/2005) negative for ischemia, LVEF 55% - S/p stress echo (10/2010) negative for ischemia, LVEF 55% - TSH with reflex T4 WNL. NT-Pro BNP of 479 (03/16) - TTE (03/19): LVEF 43%, grade 1 diastolic dysfunction - On Lopressor 5mg q6hrs given she is n.p.o with NG tube in place. Will increase to 7.5mg q6hrs. - Patient's NG status precludes use of initiating GDMT therapy. Will consider to fold in Lisinopril once able to tolerate p.o intake. - PET Stress planned for today. Will follow-up results. All care and management plans will be discussed with the attending on service. Mati Aranda MD 9:09 AM 03/20/25 Subjective Patient seen and evaluated at bedside this morning. In good spirits. Spoke with nuclear team this morning about PET Stress test to be performed. Patient in understanding. On review of telemetry, continued arrhythmogenic disturbances with fluctuation between NSR and tachyarrhythmia from both atrial and ventricular origins. Patient remains asymptomatic. Physical Exam Vital Signs: BP 138/89 (BP Location: Right arm, Patient Position: Lying) Pulse 70 Temp 98.5 degrees F (36.9 degrees C) (Oral) Resp (!) 19 Ht 5' 10 Wt 81.6 kg (180 lb) SpO2 91% BMI 25.83 kg/m Physical Exam Constitutional: General: She is not in acute distress. Appearance: She is not diaphoretic. Eyes: Extraocular Movements: Extraocular movements intact. Cardiovascular: Rate and Rhythm: Normal rate and regular rhythm. Pulses: Normal pulses. Heart sounds: Normal heart sounds. Pulmonary: Effort: Pulmonary effort is normal. No respiratory distress. Breath sounds: No wheezing. Abdominal: Tenderness: There is abdominal tenderness. Skin: General: Skin is warm and dry. Capillary Refill: Capillary refill takes less than 2 seconds. Neurological: General: No focal deficit present. Mental Status: She is alert. Psychiatric: Mood and Affect: Mood normal. AUTHENTICATED BY BERNICE TANG, ON 03/20/2025 13:05:26 [facility] 03-19-2025 Note CLINIC SURGERY PROGR ESS NOTE Patient Name: Jose Lind ASSESSMENT AND PLAN Jose Lind is a 59 y.o. female with history of former smoker, s/p breast reduction, colon polyps, diverticulitis who [facility] with worsening abdominal pain for a week. OSH CTAP: acute sigmoid diverticulitis with kay perforation and pelvic phlegmon, measuring 9.5 x 3.5cm Perforated Diverticulitis - S/p ex-lap with diverting sigmoid colostomy and abdominal washout on 03/16 - Ostomy w/ bowel sweat; AROBF - NGT ILWS - NPO, mIVF - ET consult for ostomy teaching, ostomy katlin in place - Continue multimodal pain control - PT/OT/CM for dispo Mariano Titus MD General Surgery Please contact surgical international project engineer professional caster 5PM-6AM and weekends - #[phone] SUBJECTIVE Denies worsening abd pain or nausea. Feels better after NGT placement. Review of Systems: All systems were reviewed and otherwise negative except for as noted above PHYSICAL EXAM VITALS BP (!) 121/94 (BP Location: Left arm, Patient Position: Lying) Pulse 71 Temp 98.2 degrees F (36.8 degrees C) (Oral) Resp 14 Ht 5' 10 Wt 81.6 kg (180 lb) SpO2 96% BMI 25.83 kg/m PHYSICAL EXAM General: Awake and alert, no acute distress Head: Normocephalic Eyes: EOM grossly intact Neck: Trachea midline Cardiovascular: Hemodynamically stable Pulmonary: Nonlabored breathing Extremities: No obvious deformities, warm and well perfused Skin: Dry and intact, no obvious rash Neurological: No gross focal deficits, answering questions appropriately GI: Abd soft, appropriately tender, tympany on percussion, ostomy with pink mucosa w/o output, C/D/I dressing, IMAGING Recent diagnostic imaging/reports reviewed. Pertinent findings may be listed above. Please correlate with formal radiology reads. LABS Laboratory studies ordered and reviewed. Pertinent findings may be listed below: Hgb: 11.5 03/19/25 WBC: 9.64 03/19/25 Plts: 361 03/19/25 Na: 138 03/19/25 K: 3.6 03/19/25 Cr: 0.47 03/19/25 INR: - - 03/19/25 UA obtained: pending 03/19/25 AUTHENTICATED BY MARIANO TITUS, ON 03/19/2025 11:19:55 [facility] 03-19-2025 Note [facility] Inpatient Pro [facility]okes[facility] Note 03/19/2025 Jose Lind 1965 [id number] Assessment/Plan: Jose Lind is a 59 y.o. female with a history of diverticulosis who presented to [place] ED for abdominal pain, distention, found to have diverticulitis with perforation and phlegmon. [facility] for general surgery evaluation. [facility] consulted for medical management Diverticulitis with Perforation: With acute onset of abdominal pain 03/15/25. AT [facility]: CT A/p showed acute sigmoid diverticulitis with perforation, pelvic phlegmon, and pneumoperitoneum. Continued Zosyn. S/p ex-lap with bowel resection and ostomy 03/16/[address] Carrillo (general surgery) . General surgery surgery primary. Intermittent Tachycardia: likely multifactorial from pain, stress, electrolyte disturbance and infection. HR up to 130-'s-140's intermittently. Multiple EKGs obtained with various rhythms depicted such as SVT, atrial tachycardia, sinus tachycardia, sinus rhythm with PVCs. Stress echo 2010 negative for ischemia with EF 55%. Mag/phos low, replaced. TSH wnls. Cardiology following, initiated schedule BB, increasing dose on 03/19/25. Echo 03/19/25 with EF 43%, grade I diastolic dysfunction, global hypokinesis of Left ventricle. Monitor on tele andcontinue to monitor electrolytes and replace as needed. MACE/MINS monitoring: POD#1 trop 15, POD#2 Trop 15. No baseline obtained prior to surgery. Patient without chest pain or SOB. Tachycardia/EKG as above. Echo 03/19/25 as above. Postoperative Ileus: KUB on 03/17/25 with possible postoperative ileus vs low grade partial SBO. Patient without flatulence. IVF in place. NPO. NG tube placed on 03/18/25. Management per surgery. Hyponatremia: Na 132 postoperatively. Likely due to hypovolemia. IVF in place. Resolved on 03/19/25. Leukocytosis: WBC 14.34-->12.19. Likely due to above. Zosyn in place. Down trending. Code status: Full DVT Prophylaxis: Lovenox per primary Thank you for allowing us to participate in the care of your patient. For any questions, please call the number of the covering hospitalist listed under the treatment team in care connect. Medication Reconciliation: Reviewed using Per patient, at bedside, patient takes no home medications Current living situation: Home Expected Disposition: Home Estimated discharge date: TBD Medically Ready for Discharge: no as above Subjective: Patient is known to me. She is lying in bed in no acute distress on exam. She reports that she is feeling better today. Patient had NG tube placed yesterday which she reports helped her feel much better. She does report 6/10 pain. She denies any nausea at this time. Spoke with cardiology physician regarding increasing BB dose today. Echo completed today, awaiting further cardiology recs given results. Her HR is stable at this time and patient is on RA. Today I personally reviewed prior medical records and have summarized my findings in my assessment and plan as noted above. Today I also personally reviewed recent labs including (CBC, CMP), diagnostics (KUB imaging from 03/18/[address] with NG tube in place ), and garden consultant/other provider recommendations (surgery 03/19/2025). High risk problems/medications/intervention s include: parenteral controlled substances (IV dilaudid) Physical Exam: BP 114/82 (BP Location: Right arm, Patient Position: Lying) Pulse 74 Temp 98.1 degrees F (36.7 degrees C) (Oral) Resp 16 Ht 5' 10 Wt 81.6 kg (180 lb) SpO2 94% BMI 25.83 kg/m General: NAD Eyes: EOMI, sclera clear ENT: neck supple Cardiovascular: Regular rate. Respiratory: Clear to auscultation, symmetric air entry. On RA. Gastrointestinal: mild TTP. Mild distention. Hypoactive BS. Colostomy in place. Genitourinary: no CVA tenderness Musculoskeletal: no major joint deformity Skin: warm, dry, no LE edema Neuro: Alert, oriented x3, no focal motor deficits Psych: Mood appropriate Current Medications: enoxaparin (LOVENOX) injection 40 mg Subcutaneous Daily ketorolac 15 mg Intravenous Q6H metoprolol 10 mg Intravenous BID piperacillin-tazobactam (ZOSYN) extended infusion 3.375 g Intravenous Q8H Labs, Imaging and Studies reviewed: Results from last 7 days Lab Units 03/19/25 0603/18/2525003/17/25 0608 WBC K/mcL 9.64 11.74* 12.19* HGB g/dL 11.5* 11.6* 12.2 HCT % 35.5* 34.5* 37.9 PLT K/mcL 361 328 336 Results from last 7 days Lab Units 03/19/25 0658 03/18/25 02503/17/25 0608 SODIUM mmol/L 138 131* 132* POTASSIUM mmol/L 3.6 3.7 4.8 CHLORIDE mmol/L 103 99 100 BICARB mmol/L 25 23 24 BUN mg/dL 9 10 10 CREATININE mg/dL 0.47 0.59 0.58 EGFR mL/min/1.73 m2 109 103 104 GLUCOSE mg/dL 131* 125* 134* CALCIUM mg/dL 8.4 8.7 8.8 PHOSPHORUS mg/dL 2.7 2.1* 2.2* Results from last 7 days Lab Units 03/19/25 0658 03/18/25 02503/17/25 0608 ALT U/L 10 13 13 AST U/L 12 11 14 ALK PHOS U/L 61 66 68 BILIRUBIN TO (more content not included)... [facility] 03-19-2025 Note Attestation signed by Bernice Tang MD at 03/19/2025 1:10 PM CARDIOLOGY CONSULTATION Bernice Tang MD, [facility] I have reviewed the history, physical, diagnosis and care plan with the resident physician. I confirm the assessment and treatment plan. I have performed my own separate complete history and physical exam on the same calendar day as theirs and it agrees with the exam and history documented by the resident in this note with the following addendum: She is doing fine and has no cardiac complaints. She still continues to go in and out of atrial tachycardia though she had fewer events overnight than she did the night before. I attribute that to the initiation of Lopressor 25 twice daily. She is now n.p.o. so the Lopressor was switched to IV. We decided to check an echo just to be certain there was nothing else going on and surprisingly her EF came back at 43% today. It had always been normal in the past. She had a negative stress test in June 2022 but no ischemic evaluation since then. Because of her low EF which could be stress-induced, I want to rule out ischemic heart disease. Will check a PET stress test, possibly today if their schedule allows. If the stress test is negative then I would discontinue the beta-cam for now and follow-up with an echo in a month or so. Resident Progress Note Patient Name: Jose Lind : 1965 Admit Date: [id number] Assessment and Plan Patient is a 59 y.o. female with a past medical history significant for diverticulosis, perforated sigmoid diverticulitis s/p ex-lap with diverting colostomy and abdominal washout (03/16), former smoker with 20 pack years who [facility] as a transfer for general surgery evaluation. Surgery following. Cardiology consulted for post-op intermittent tachycardia and elevated troponin. Intermittent Tachycardia - Etiology likely multifactorial and stemming from sympathetic overactivity from pain / stress, electrolyte disturbance, and infection from perforated sigmoid diverticulitis - Multiple EKGs obtained with varying rhythms depicted on different strips: SVT, atrial tachycardia, sinus tachycardia, sinus rhythm with PVCs - Family history notable for CVA in mother and GA in father & brother - S/p stress test (06/2002) negative for ischemia, LVEF 65% - S/p stress test (12/2005) negative for ischemia, LVEF 55% - S/p stress echo (10/2010) negative for ischemia, LVEF 55% - TSH with reflex T4 WNL. NT-Pro BNP of 479 (03/16) - On VTE prophylaxis with Lovenox 40mg daily. Empiric abx with Zosyn - Recommend continuous telemetry monitoring. Patient was initiated on 25mg of Lopressor BID on 03/18 for 1 month after discharge. TTE pending. If TTE unremarkable, no further workup required. Elevated Troponin - Likely a consequence of myocardial oxygen-supply demand mismatch and possibly further influenced by the above tachycardia. Less concerned for ischemic insult - Patient asymptomatic with no chest pain, palpitations or dyspnea - Troponin T 15 -> 15 All care and management plans will be discussed with the attending on service. Mati Aranda MD 6:43 AM 03/19/25 Subjective Patient seen and evaluated at bedside this morning. Still endorsing some pain as expected but relieved with PRN medication. Denies any chest pain, palpitations, dyspnea. On review of telemetry, continued brief runs of SVT with PVC burden at times. Mag 1.9, K 3.6, Phos 2.7. Physical Exam Vital Signs: BP (!) 118/94 (BP Location: Left arm, Patient Position: Lying) Pulse 79 Temp 98.7 degrees F (37.1 degrees C) (Oral) Resp (!) 19 Ht 5' 10 Wt 81.6 kg (180 lb) SpO2 95% BMI 25.83 kg/m Physical Exam Constitutional: General: She is not in acute distress. Appearance: She is not diaphoretic. Eyes: Extraocular Movements: Extraocular movements intact. Cardiovascular: Rate and Rhythm: Normal rate and regular rhythm. Pulses: Normal pulses. Heart sounds: Normal heart sounds. Pulmonary: Effort: Pulmonary effort is normal. No respiratory distress. Breath sounds: No wheezing. Abdominal: Tenderness: There is abdominal tenderness. Skin: General: Skin is warm and dry. Capillary Refill: Capillary refill takes less than 2 seconds. Neurological: General: No focal deficit present. Mental Status: She is alert. Psychiatric: Mood and Affect: Mood normal. AUTHENTICATED BY BERNICE TANG, ON 03/19/2025 13:10:55 [facility] 03-18-2025 Note CLINIC SURGERY PROGR ESS NOTE Patient Name: Jose Lind ASSESSMENT AND PLAN Jose Lind is a 59 y.o. female with history of former smoker, s/p breast reduction, colon polyps, diverticulitis who [facility] with worsening abdominal pain for a week. OSH CTAP: acute sigmoid diverticulitis with kay perforation and pelvic phlegmon, measuring 9.5 x 3.5cm Perforated Diverticulitis - S/p ex-lap with diverting sigmoid colostomy and abdominal washout on 03/16 - Ostomy w/ bowel sweat; AROBF - NPO, mIVF - ET consult for ostomy teaching, ostomy katiln in place - Continue multimodal pain control - PT/OT/CM for dispo Mariano Titus MD General Surgery Please contact surgical international project engineer professional caster 5PM-6AM and weekends - #[phone] SUBJECTIVE Denies nausea. Still awaiting bowel fxn. Review of Systems: All systems were reviewed and otherwise negative except for as noted above PHYSICAL EXAM VITALS BP 119/81 (BP Location: Right arm, Patient Position: Lying) Pulse 86 Temp 98.6 degrees F (37 degrees C) (Oral) Resp (!) 23 Ht 5' 10 Wt 81.6 kg (180 lb) SpO2 95% BMI 25.83 kg/m PHYSICAL EXAM General: Awake and alert, no acute distress Head: Normocephalic Eyes: EOM grossly intact Neck: Trachea midline Cardiovascular: Hemodynamically stable Pulmonary: Nonlabored breathing Extremities: No obvious deformities, warm and well perfused Skin: Dry and intact, no obvious rash Neurological: No gross focal deficits, answering questions appropriately GI: Abd soft, appropriately tender, tympany on percussion, ostomy with pink mucosa w/o output, C/D/I dressing, IMAGING Recent diagnostic imaging/reports reviewed. Pertinent findings may be listed above. Please correlate with formal radiology reads. LABS Laboratory studies ordered and reviewed. Pertinent findings may be listed below: Hgb: 11.6 03/18/25 WBC: 11.74 03/18/25 Plts: 328 03/18/25 Na: 131 03/18/25 K: 3.7 03/18/25 Cr: 0.59 03/18/25 INR: 1.1 03/18/25 UA obtained: pending 03/18/25 AUTHENTICATED BY MARIANO TITUS ON 03/18/2025 10:31:21 [facility] 03-18-2025 Note [facility] Inpatient Pro lokes[facility] Note 03/18/2025 Jose Lind 1965 [id number] Assessment/Plan: oJse Lind is a 59 y.o. female with a history of diverticulosis who presented to [place] ED for abdominal pain, distention, found to have diverticulitis with perforation and phlegmon. [facility] Diverticulitis with Perforation: With acute onset of abdominal pain 03/15/25. AT [facility]: CT A/p showed acute sigmoid diverticulitis with perforation, pelvic phlegmon, and pneumoperitoneum. Continued Zosyn. S/p ex-lap with bowel resection and ostomy 03/16/[address] Carrillo (general surgery) . General surgery surgery primary. Intermittent Tachycardia: likely multifactorial from pain, stress, electrolyte disturbance and infection. HR up to 130-'s-140's intermittently. Multiple EKGs obtained with various rhythms depicted such as SVT, atrial tachycardia, sinus tachycardia, sinus rhythm with PVCs. Stress echo 2010 negative for ischemia with EF 55%. Mag/phos low, replaced. TSH wnls. Cardiology following, initiated schedule BB and echo ordered. Monitor on tele and continue to monitor electrolytes and replace as needed. MACE/MINS monitoring: POD#1 trop 15, POD#2 Trop 15. No baseline obtained prior to surgery. Patient without chest pain or SOB. Tachycardia/EKG as above. Echo pending. Postoperative Ileus: KUB on 03/17/25 with possible postoperative ileus vs low grade partial SBO. Patient without flatulence. IVF in place. NPO. Management per surgery. Hyponatremia: Na 132 postoperatively. Likely due to hypovolemia. IVF in place. Down trending 03/18/25. Urine studies pending. . Leukocytosis: WBC 14.34-->12.19. Likely due to above. Zosyn in place. Down trending. Code status: Full DVT Prophylaxis: Lovenox per primary Thank you for allowing us to participate in the care of your patient. For any questions, please call the number of the covering hospitalist listed under the treatment team in care connect. Medication Reconciliation: Reviewed using Per patient, at bedside, patient takes no home medications Current living situation: Home Expected Disposition: Home Estimated discharge date: TBD Medically Ready for Discharge: no as above Subjective: Patient is known to me. She is sitting up in bed in no acute distress on exam. She tells me that she feels horrible this morning. She reports that her pain is worse today. She is distended on my exam and TTP today. KUB from yesterday with likely postoperative ileus. She has not yet had return of bowel function. Patient with nausea this morning but improved by my exam. She had issues with tachycardia overnight with HR intermittently up into 130-140s. Multiple EKGs obtained showing different rhythms. Cardiology is now following and initiated BB and ordered echo. Today I personally reviewed prior medical records and have summarized my findings in my assessment and plan as noted above. Today I also personally reviewed recent labs including (CBC, CMP, TSH, Trop), diagnostics (EKG tracing from 03/18/25 with sinus rhythm with PVCs ), and garden consultant/other provider recommendations (surgery 03/18/2025). High risk problems/medications/intervention s include: parenteral controlled substances (IV dilaudid) Physical Exam: BP 119/81 (BP Location: Right arm, Patient Position: Lying) Pulse 87 Temp 98.6 degrees F (37 degrees C) (Oral) Resp (!) 22 Ht 5' 10 Wt 81.6 kg (180 lb) SpO2 92% BMI 25.83 kg/m General: NAD Eyes: EOMI, sclera clear ENT: neck supple Cardiovascular: Regular rate. Respiratory: Clear to auscultation, symmetric air entry. On RA. Gastrointestinal: +tender to palpation. +distention. Hypoactive BS. Colostomy in place. Genitourinary: no CVA tenderness Musculoskeletal: no major joint deformity Skin: warm, dry, no LE edema Neuro: Alert, oriented x3, no focal motor deficits Psych: Mood appropriate Current Medications: enoxaparin (LOVENOX) injection 40 mg Subcutaneous Daily ketorolac 15 mg Intravenous Q6H methocarbamol 1 g Intravenous Q8H piperacillin-tazobactam (ZOSYN) extended infusion 3.375 g Intravenous Q8H sodium phosphate 30 mmol Intravenous Once Labs, Imaging and Studies reviewed: Results from last 7 days Lab Units 03/18/25 0251 03/17/25 0608 03/16/25 1108 WBC K/mcL 11.74* 12.19* 14.34* HGB g/dL 11.6* 12.2 13.2 HCT % 34.5* 37.9 41.0 PLT K/mcL 328 336 393 Results from last 7 days Lab Units 03/18/25 0251 03/17/25 0608 03/16/25 1107 SODIUM mmol/L 131* 132* 137 POTASSIUM mmol/L 3.7 4.8 4.2 CHLORIDE mmol/L 99 100 101 BICARB mmol/L 23 24 24 BUN mg/dL 10 10 11 CREATININE mg/dL 0.59 0.58 0.73 EGFR mL/min/1.73 m2 103 104 94 GLUCOSE mg/dL 125* 134* 115* CALCIUM mg/dL 8.7 8.8 9.2 PHOSPHORUS mg/dL 2.1* 2.2* -- Results from last 7 days Lab Units 03/18/25 0251 03/17/25 0608 ALT U/L 13 13 (more content not included)... [facility] 03-17-2025 Note [facility] Inpatient Pro [facility]okes[facility] Note 03/17/2025 Jose Lind 1965 [id number] Assessment/Plan: Jose Lind is a 59 y.o. female with a history of diverticulosis who presented to [place] ED for abdominal pain, distention, found to have diverticulitis with perforation and phlegmon. [facility] for general surgery evaluation. [facility] consulted for medical management Diverticulitis with Perforation: With acute onset of abdominal pain 03/15/25. AT [facility]: CT A/p showed acute sigmoid diverticulitis with perforation, pelvic phlegmon, and pneumoperitoneum. Continued Zosyn. S/p ex-lap with bowel resection and ostomy 03/16/[address] Carrillo (general surgery) . General surgery surgery primary Preoperative evaluation: George Revised Cardiac Index Risk Factors: High risk surgery . At home, patient able to complete < 4 METS as evidenced by inability to climb two flights of stairs without CP or dyspnea. Chronic medical conditions that increase perioperative risk not captured with RCRI include: none. On physical exam, patient does not demonstrate any evidence of clinically significant cardiac murmur, ACS or congestive heart failure. Most recent cardiac testing: ECG 03/16/25 sinus tach rate of 102 BPM, non specific T wave changes. After chart review and discussion with patient, qualifies for Intermediate Risk ( 1-2 RCRI with poor functional status). We will measure NT-proBNP, and if >200 would qualify as higher risk and would recommend monitoring troponin POD #1 and POD #2 to capture MACE/MINS. . Further cardiac testing will not reduce patients risk and okay to proceed without further testing. Final decision to take patient to OR left to risk/benefit decision making of surgical team. POD#1 trop pending. Postoperative Ileus: KUB on 03/17/25 with possible postoperative ileus vs low grade partial SBO. Patient without flatulence. IVF in place. NPO. Management per surgery. Hyponatremia: Na 132 postoperatively. Likely due to hypovolemia. IVF in place. Trend. Leukocytosis: WBC 14.34-->12.19. Likely due to above. Zosyn in place. Trend. Code status: Full DVT Prophylaxis: Lovenox per primary Thank you for allowing us to participate in the care of your patient. For any questions, please call the number of the covering hospitalist listed under the treatment team in care connect. Medication Reconciliation: Reviewed using Per patient, at bedside, patient takes no home medications Current living situation: Home Expected Disposition: Home Estimated discharge date: TBD Medically Ready for Discharge: no as above Subjective: Patient is new to me. She is lying in bed in no acute distress on exam. She tells me that she is sore this morning. She rates her pain a 5-6/10 currently. She reports that she has not yet started to pass gas since surgery and that they just removed her hernandez this morning. She is bloated on exam and XR completed per surgery with concern for ileus. Her colostomy is in place with trace bloody OP. IVF in place. Today I personally reviewed prior medical records and have summarized my findings in my assessment and plan as noted above. Today I also personally reviewed recent labs including (CBC, CMP, LA), diagnostics (KUB images 03/17/2025 with postoperative ileus ), and garden consultant/other provider recommendations (surgery 03/17/2025). High risk problems/medications/intervention s include: parenteral controlled substances (IV dilaudid) Physical Exam: BP 101/81 (BP Location: Right arm, Patient Position: Lying) Pulse 85 Temp 98.6 degrees F (37 degrees C) (Oral) Resp 18 Ht 5' 10 Wt 81.6 kg (180 lb) SpO2 97% BMI 25.83 kg/m General: NAD Eyes: EOMI, sclera clear ENT: neck supple Cardiovascular: Regular rate, no murmur Respiratory: Clear to auscultation, symmetric air entry Gastrointestinal: Soft, non tender to palpation. +distention. Hypoactive BS. Colostomy in place. Genitourinary: no CVA tenderness Musculoskeletal: no major joint deformity Skin: warm, dry, no LE edema Neuro: Alert, oriented x3, no focal motor deficits Psych: Mood appropriate Current Medications: enoxaparin (LOVENOX) injection 40 mg Subcutaneous Daily piperacillin-tazobactam (ZOSYN) extended infusion 3.375 g Intravenous Q8H Labs, Imaging and Studies reviewed: Results from last 7 days Lab Units 03/17/25 0608 03/16/25 1108 WBC K/mcL 12.19* 14.34* HGB g/dL 12.2 13.2 HCT % 37.9 41.0 PLT K/mcL 336 393 Results from last 7 days Lab Units 03/17/25 0608 03/16/25 1107 SODIUM mmol/L 132* 137 POTASSIUM mmol/L 4.8 4.2 CHLORIDE mmol/L 100 101 BICARB mmol/L 24 24 BUN mg/dL 10 11 CREATININE mg/dL 0.58 0.73 EGFR mL/min/1.73 m2 104 94 GLUCOSE mg/dL 134* 115* CALCIUM mg/dL 8.8 9.2 PHOSPHORUS mg/dL 2.2* -- Results from last 7 days Lab Units 03/17/25 0608 ALT U/L 13 AST U/L 14 ALK PHOS U/L 68 BILIRUBIN TOTAL mg/dL 0.9 Results from last 7 days (more content not included)... [facility] 03-17-2025 Note CLINIC SURGERY PROGR ESS NOTE Patient Name: Jose Lind ASSESSMENT AND PLAN Jose Lind is a 59 y.o. female with history of former smoker, s/p breast reduction, colon polyps, diverticulitis who [facility] with worsening abdominal pain for a week. OSH CTAP: acute sigmoid diverticulitis with kay perforation and pelvic phlegmon, measuring 9.5 x 3.5cm Perforated Diverticulitis - Patient presented with perforated diverticulitis and peritoneal on exam - s/p ex-lap with diverting sigmoid colostomy and abdominal washout on 03/16 - NPO, mIVF - AROBF - ostomy katlin in place - ET consult for ostomy teaching - Will obtain KUB given bloating and tympany on percussion Sharon Pizano MD General Surgery Please contact surgical international project engineer professional caster 5PM-6AM and weekends - #[phone] SUBJECTIVE Feels better after surgery but a bit bloated. No nausea. Ostomy without gas or stool Review of Systems: All systems were reviewed and otherwise negative except for as noted above PHYSICAL EXAM VITALS BP 101/81 (BP Location: Right arm, Patient Position: Lying) Pulse 91 Temp 98.6 degrees F (37 degrees C) (Oral) Resp (!) 21 Ht 5' 10 Wt 81.6 kg (180 lb) SpO2 97% BMI 25.83 kg/m PHYSICAL EXAM General: Awake and alert, no acute distress Head: Normocephalic Eyes: EOM grossly intact Neck: Trachea midline Cardiovascular: Hemodynamically stable Pulmonary: Nonlabored breathing Extremities: No obvious deformities, warm and well perfused Skin: Dry and intact, no obvious rash Neurological: No gross focal deficits, answering questions appropriately GI: Abd soft, appropriately tender, tympany on percussion, ostomy with pink mucosa w/o output, C/D/I dressing, IMAGING Recent diagnostic imaging/reports reviewed. Pertinent findings may be listed above. Please correlate with formal radiology reads. LABS Laboratory studies ordered and reviewed. Pertinent findings may be listed below: Hgb: 13.2 03/17/25 WBC: 14.34 03/17/25 Plts: 393 03/17/25 Na: 137 03/17/25 K: 4.2 03/17/25 Cr: 0.73 03/17/25 INR: 1.1 03/17/25 UA obtained: pending 03/17/25 AUTHENTICATED BY SHARON PIZANO ON 03/17/2025 04:01:04 [facility] 03-16-2025 History and physical note INTERVAL HISTORY AND PHYSICAL Patient Name: Jose Lind Admit Date: [id number] MR #: [id number] : 1965 The H&P has been reviewed and the patient has been examined. I concur with the findings of the H&P. There are no significant changes. It is appropriate to proceed with the planned procedure. Tamica Palm MD 03/16/2025 4:43 PM Cosigned by Lavinia Carrillo MD at 03/24/2025 8:49 AM EDT Source Note - Jt Nesbitt PA-C - 03/16/2025 2:29 PM EDT [facility] Consult Note 03/16/25 Jose Lind 1965 [id number] Assessment/Plan: Jose Lind is a 59 y.o. female with a history of diverticulosis who presented to [place] ED for abdominal pain, distention, found to have diverticulitis with perforation and phlegmon. [facility] for general surgery evaluation. [facility] consulted for medical management Diverticulitis with Perforation: With acute onset of abdominal pain 03/15/25. AT [facility]: CT A/p showed acute sigmoid diverticulitis with perforation, pelvic phlegmon, and pneumoperitoneum. Continued Zosyn. Plan for ex-lap with possible bowel resection and ostomy 03/16/25. General surgery surgery primary Preoperative evaluation: George Revised Cardiac Index Risk Factors: High risk surgery . At home, patient able to complete < 4 METS as evidenced by inability to climb two flights of stairs without CP or dyspnea. Chronic medical conditions that increase perioperative risk not captured with RCRI include: none. On physical exam, patient does not demonstrate any evidence of clinically significant cardiac murmur, ACS or congestive heart failure. Most recent cardiac testing: ECG 03/16/25 sinus tach rate of 102 BPM, non specific T wave changes. After chart review and discussion with patient, qualifies for Intermediate Risk ( 1-2 RCRI with poor functional status). We will measure NT-proBNP, and if >200 would qualify as higher risk and would recommend monitoring troponin POD #1 and POD #2 to capture MACE/MINS. . Further cardiac testing will not reduce patients risk and okay to proceed without further testing. Final decision to take patient to OR left to risk/benefit decision making of surgical team. Code status: Full DVT Prophylaxis: Lovenox per primary Thank you for allowing us to participate in the care of your patient. For any questions, please call the number of the covering hospitalist listed under the treatment team in care connect. Medication Reconciliation: Reviewed using Per patient, at bedside, patient takes no home medications Current living situation: Home Expected Disposition: Home Estimated discharge date: TBD Medically Ready for Discharge: no as above ___ Chief Complaint / Reason for Consult: Diverticulitis, medical management History of Present Illness: Jose Lind is a 59 y.o. female with a history of diverticulosis who presented to [place] ED for abdominal pain, distention, found to have diverticulitis with perforation and phlegmon. [facility] for general surgery evaluation. [facility] consulted for medical management Hemoglobin 10 patient seen and evaluated in the ER. Patient is a patient seen and evaluated in the ER in room 52. Patient is a 59[facility]year-old [facility] with perforation and phlegmon. Patient does have a history of diverticulitis., Reported increasing abdominal pain and distention yesterday prior to arrival to [facility]. Patient was ultimately transferred to [place] for surgical evaluation plan for or later today. Continue IV antibiotics., Preop as above. Today I personally did a review of prior medical records and have summarized my findings in my assessment and plan as noted above. Today I also reviewed recent labs, diagnostics, vitals including pulse ox, and garden consultant/other provider recommendations. As needed IV Dilaudid ordered high risk medication require close monitoring titration. Reviewed [facility] notes, ED notes from earlier today. ROS: 10 systems were reviewed and negative, except as noted above. Past Medical, Surgical, Social, Family History: Past Medical History: Diagnosis Date Diverticulitis Past Surgical History: Procedure Laterality Date BREAST SURGERY Social History [1] History reviewed. No pertinent family history. Current Medications: Medication list reviewed with patient. Please see MAR for full details. Physical Exam: BP 115/83 Pulse (!) 105 Temp 99.5 F (37.5 C) (Axillary) Resp (!) 19 Ht 5' 10 Wt 81.6 kg (180 lb) SpO2 92% BMI 25.83 kg/m General: Uncomfortable appearing Eyes: EOMI, sclera clear ENT: neck supple Cardiovascular: Regular rate, no murmur Respiratory: Clear to auscultation, symmetric air entry Gastrointestinal: TTP, distended, positive bowel sounds Genitourinary: no CVA tenderness Musculoskeletal: no major joint deformity Skin: warm, dry, no LE edema Neuro: Alert, oriented x3, no focal motor deficits Psych: Mood appropriate Labs, Imaging, and Studies reviewed: Results from last 7 days Lab Units 03/16/25 1108 WBC K/mcL 14.34* HGB g/dL 13.2 HCT % 41.0 PLT K/mcL 393 Results from last 7 days Lab Units 03/16/25 1107 SODIUM mmol/L 137 POTASSIUM mmol/L 4.2 CHLORIDE mmol/L 101 BICARB mmol/L 24 BUN mg/dL 11 CREATININE mg/dL 0.73 EGFR mL/min/1.73 m2 94 GLUCOSE mg/dL 115* CALCIUM mg/dL 9.2 Results from last 7 days Lab Units 03/16/25 1107 INR 1.1 [1] Social History Socioeconomic History Marital status: Tobacco Use Smoking status: Never Smokeless tobacco: Never Vaping Use Vaping status: Never Used Substance and Sexual Activity Alcohol use: Yes Comment: socially Drug use: Never Cosigned by Dilia Leonardo DO at 03/16/2025 4:18 PM EDT CLINIC SURGERY HISTORY AND PHYSICAL Patient Name: Jose Lind CLINIC CHIEF ADDENDUM Jose Lind is a 59 y.o. female with history of former smoker, s/p breast reduction, colon polyps, diverticulitis who [facility] with worsening abdominal pain for a week. Patient states that for the past week she has had worsening abdominal pain. She states she has had pain like this before and was managed with antibiotics (she assumes this was diverticulitis). She denies any past abdominal surgical history. She states that she has had 3 colonoscopies within the last year due to difficulty with traversing the colon. She denies any AC/AP use. On exam, the patient is peritoneal and in acute distress over her abdominal pain. Abdomen is distended and diffusely tender. She is mildly tachycardic to 104 while in the room and normotensive CT scan done at [facility] shows sigmoid diverticulitis and free air throughout the abdomen along with air above the liver. There is a phlegmon adjacent to the sigmoid colon Labs with WBC 14, lactate 1.3 Patient with perforated sigmoid diverticulitis. She is peritoneal on exam and therefore requires urgent surgical intervention. We will take her to the OR for a laparotomy, resection, possible ostomy. I discussed with her the possibility of needing a temporary versus permanent colostomy and she is agreeable to proceed Tamica Palm MD Contact Clinic service line pager after 5pm weekdays and on weekends, use international project engineer professional caster pager *[phone] ASSESSMENT AND PLAN Jose Lind is a 59 y.o. female with history of former smoker, s/p breast reduction, colon polyps, diverticulitis who [facility] with worsening abdominal pain for a week. OSH CTAP: acute sigmoid diverticulitis with kay perforation and pelvic phlegmon, measuring 9.5 x 3.5cm Perforated Diverticulitis - WBC - 14.34, HGB - 13.2, Cre- 0.73 - Patient presenting with abdominal pain for a week that has been worsening since onset. Pain started in LLQ and has now become generalized - On exam patient is HDS, mildly tachycardic, she is distended but soft. She is very tender to palpation and exam is concerning for peritonitis - Imaging reviewed with evidence of perforation, mesenteric stranding, phlegmon Plan - Plan for OR today for ex-lap with possible bowel resection and ostomy - NPO, mIVF, Zosyn - Type and Screen - Discussed with Dr. Palm, clinic surgery chief Tamica Palm MD General Surgery Please contact surgical international project engineer professional caster 5PM-6AM and weekends - #[phone] Admitted with these risk variables:GI Perforation. Please see assessment and plan for further details. HISTORY OF PRESENT ILLNESS The patient endorses abdominal pain beginning Sunday evening. States the pain has been worsening since onset. Did have some dry heaving overnight but states no emesis. Has had difficulty tolerating PO intake 2/2 to her pain. Does endorse feeling feverish with diaphoresis at home. Pain is present to her B/L lower abdomen, states that the pain is the most significant to her LLQ. Does endorse 2-3 prior episodes of diverticulitis over the past few months, states pain would be relieved with Aleve. States she was treated with antibiotics during the first episode. Her first episode was in Spring 2023. Has a history of intermittent diarrhea and constipation, no bloody or melenic stools. Last colonoscopy was within the past year, states did have diverticulosis noted with evidence of colitis. Did have some polyps removed as well. Reports she had two previous attempted colonoscopies as well but they were able to pass the scope. Denies any past intra-abdominal surgeries. Review of Systems: All systems were reviewed and otherwise negative except for as noted above HISTORY Past Medical History: Diagnosis Date Diverticulitis Past Surgical History: Procedure Laterality Date BREAST SURGERY Prior to Admission medications Not on File Allergies[1] History reviewed. No pertinent family history. Social History [2] PHYSICAL EXAM VITALS BP 115/83 Pulse (!) 105 Temp 99.5 F (37.5 C) (Axillary) Resp (!) 19 Ht 5' 10 Wt 81.6 kg (180 lb) SpO2 92% BMI 25.83 kg/m PHYSICAL EXAM General: Awake and alert, no acute distress Head: Normocephalic Eyes: EOM grossly intact Neck: Trachea midline Cardiovascular: Hemodynamically stable Pulmonary: Nonlabored breathing Extremities: No obvious deformities, warm and well perfused Skin: Dry and intact, no obvious rash Neurological: No gross focal deficits, answering questions appropriately GI: Abd soft, markedly tender to palpation, peritoneal, moderately-distended IMAGING Recent diagnostic imaging/reports reviewed. Pertinent findings may be listed above. Please correlate with formal radiology reads. LABS Laboratory studies ordered and reviewed. Pertinent findings may be listed below: Hgb: 13.2 03/16/25 WBC: 14.34 03/16/25 Plts: 393 03/16/25 Na: 137 03/16/25 K: 4.2 03/16/25 Cr: 0.73 03/16/25 INR: 1.1 03/16/25 UA obtained: pending 03/16/25 [1] No Known Allergies [2] Social History Socioeconomic History Marital status: Tobacco Use Smoking status: Never Smokeless tobacco: Never Vaping Use Vaping status: Never Used Substance and Sexual Activity Alcohol use: Yes Comment: socially Drug use: Never Cosigned by Lavinia Carrillo MD at 03/24/2025 8:49 AM EDT documented in this encounter [facility] 03-16-2025 Emergency department Note Report called to David blanc RN SURGICAL WEB DEVELOPER TO WRITE ADMISSION ORDERS [phone] pizano to speak to dr addison on 1605 PCP: Shaina, Physician Chief Complaint Patient presents with Abnormal Results Abdominal Pain HPI: This patient is a 59 y.o. female who presents to the ER today as a transfer from [place] ED with concerns of diverticulitis with pelvic abscess and perforation. She has a history of diverticulitis most recent episode in December of this year. She states last week she was having a cough URI type symptoms with increasing fevers abdominal pain nausea vomiting yesterday. Outlying facility found patient to have diverticulitis with pelvic abscess, bowel perforation and large amount of free air by report. Patient images not available for review request the ED staff to have images pushed through from outlying facility. Repeat dosing of fluids pain medication nausea medications and antibiotics ordered. REVIEW OF SYSTEMS: Review of Systems Constitutional: Positive for chills and fever. Negative for diaphoresis and fatigue. Respiratory: Negative for chest tightness and shortness of breath. Cardiovascular: Negative for chest pain. Gastrointestinal: Positive for abdominal pain, nausea and vomiting. Endocrine: Negative for polydipsia, polyphagia and polyuria. Musculoskeletal: Positive for myalgias. Negative for back pain, neck pain and neck stiffness. Skin: Negative for color change, pallor, rash and wound. Neurological: Negative for dizziness, weakness, light-headedness, numbness and headaches. Hematological: Negative for adenopathy. Does not bruise/bleed easily. Psychiatric/Behavioral: Negative for confusion. All other systems reviewed and are negative. Past Medical History: Past Medical History: Diagnosis Date Diverticulitis Past medical history reviewed. Past Surgical History: Past Surgical History: Procedure Laterality Date BREAST SURGERY Past surgical history reviewed. Family History: History reviewed. No pertinent family history. Family history reviewed. Social History: Social History [1] Social history reviewed. Allergies: Allergies[2] Medications: No current outpatient medications on file. PHYSICAL EXAMINATION: Vital Signs BP 115/70 Pulse 94 Temp 99.5 F (37.5 C) (Axillary) Resp 18 Ht 5' 10 Wt 81.6 kg (180 lb) SpO2 93% BMI 25.83 kg/m Physical Exam Vitals and nursing note reviewed. Constitutional: Appearance: She is not diaphoretic. Comments: Appears uncomfortable. Does not appear septic or toxic. Eyes: General: No scleral icterus. Pupils: Pupils are equal, round, and reactive to light. Cardiovascular: Rate and Rhythm: Normal rate and regular rhythm. Heart sounds: Normal heart sounds. No murmur heard. Musculoskeletal: Right lower leg: No edema. Left lower leg: No edema. Pulmonary: Breath sounds: No wheezing or rhonchi. Abdominal: General: Abdomen is flat. Tenderness: There is generalized abdominal tenderness. Comments: Diffuse tenderness with even light touch/auscultation of the abdomen. Hyperactive bowel sounds right upper quadrant. Bowel sounds present all 4 quadrants. Skin: General: Skin is warm. Coloration: Skin is not jaundiced or pale. Findings: No erythema or rash. Comments: Overlying skin changes of the abdomen and pelvis Neurological: General: No focal deficit present. Mental Status: She is alert and oriented to person, place, and time. Vital Signs During ED Visit (as charted by nursing) Patient Vitals for the past 24 hrs: BP Temp Temp src Pulse Resp SpO2 Height Weight 03/16/25 1200 115/70 -- -- 94 18 93 % -- -- 03/16/25 1100 126/84 -- -- 91 (!) 26 94 % -- -- 03/16/25 1050 (!) 120/98 99.5 F (37.5 C) Axillary 94 16 100 % 5' 10 81.6 kg (180 lb) MEDICAL DECISION MAKING: Ms Lind, update: Diverticulitis: With perforation and abscess. Clinical picture more prominent or concerning for suspected amount of free air given suspected findings on CT. By report large amount of air present on CT though unable to review images while awaiting to be pushed through. Consult initiated with surgery in the ED. IV antibiotics continued, pain nausea medication. Plans for admission. N.p.o. while awaiting timing for possible intraoperative treatment versus inpatient admission and IR consult for drain placement MDM Data : Chronic conditions is/is not having mild/moderate/severe exacerbation, progression or side effects of treatment, Shared decision making utilized by explaining the results and plan of care for disposition and next steps of care with the patient and/or family, Treatment Goals were addressed, Drug management discussed, External Records Reviewed, Admit or Transfer Decisions considered, Discussed with consultants/staff, and Social Determinants of Health Impacted Treatment/Disposition IMPRESSION: 1. Diverticulitis of colon with perforation 2. Intra-abdominal abscess (HCC) 3. Leukocytosis, unspecified type ED Course as of 03/16/25 1214 SunMarch 16, 2025 1052 Pain medications nausea medications IV fluids, labs, antibiotics ordered. Patient understands to remain n.p.o. in spite of her request. Surgery consult initiated [TK] 1056 Discussed with surgery. [TK] 1056 Requested ED stock clerk to have images pushed through. Consult initiated with symptoms findings and CT scan report [TK] 1147 WBC(!): 14.34 [TK] 1200 Lactic Acid: 1.3 [TK] ED Course User Index [TK] Tevin Addison MD DIAGNOSTICS: Laboratory (if any, during ED visit): Labs Reviewed BASIC METABOLIC PANEL - Abnormal; Notable for the following components: Result Value Glucose 115 (*) All other components within normal limits Narrative: [facility] has implemented the eGFR calculation approach that does not have a coefficient for race that conforms to the NKF-ASN Task Force Recommendations. CBC WITH AUTO DIFFERENTIAL - Abnormal; Notable for the following components: WBC 14.34 (*) RDW - CV 17.0 (*) MPV 9.1 (*) Neutrophils Abs 12.63 (*) All other components within normal limits PT/INR - Normal Narrative: During the induction phase of oral anticoagulation, the INR may not reflect the anticoagulation status of the patient. Therapeutic ranges for INR's are: Most clinical situations: INR 2.0-3.0 Mechanical Prosthetic Valve: INR 2.5-3.5 Critical: INR >5.0 LACTIC ACID, PLASMA - Normal CBC AND DIFFERENTIAL Narrative: The following orders were created for panel order CBC w/ Diff. Procedure Abnormality Status --------- ------ CBC Auto Differential[[id number]] Abnormal Final result Please view results for these tests on the individual orders. TYPE AND SCREEN ABORH VERIFICATION RADIOGRAPHIC IMAGING (if any, during ED visit): CT Comparison Import Final Result MEDICATIONS ORDERED/GIVEN (if any, during ED visit): Medications sodium chloride (PF) (NS) flush 5 mL (has no administration in time range) And sodium chloride 0.9% (NS) (has no administration in time range) sodium chloride 0.9% (NS) (100 mL/hr Intravenous New Bag 03/16/25 1145) piperacillin-tazobactam (ZOSYN) IVPB 3.375 g (premix) (3.375 g Intravenous New Bag 03/16/25 1148) fentaNYL (SUBLIMAZE) injection 50 mcg (50 mcg Intravenous Given 03/16/25 1108) ondansetron (ZOFRAN) injection 4 mg (4 mg Intravenous Given 03/16/25 1108) [1] Social History Socioeconomic History Marital status: Tobacco Use Smoking status: Never Smokeless tobacco: Never Vaping Use Vaping status: Never Used Substance and Sexual Activity Alcohol use: Yes Comment: socially Drug use: Never [2] No Known Allergies Tevin Addison MD 03/16/25 2334 Transfer note: Requests transfer to [place] for higher level of surgical care. Provider states patient with perforated diverticulum low in pelvis, and no colorectal or urology specialty at [facility]. Provider placed on brief hold to connect with general surgery professional caster at [facility]. Admit Date to [facility]: 03/16/25 DX: Perforated Diverticulitis Report: Pt presented to ED with 24 hours worth of severe lower abd pain. Specialists Consulted: Dr Franklin, gen surg at [facility] PMH: Diverticulitis, Colon polyps, former smoker, breast reduction Allergies: NKDA VS: 97.8-87-19-111/78 98% RA EKG: Monitor: sinus rhythm Vent Settings: NA Other Equipment: NA Labs: WBC 15.7, Hgb 14.3 Imaging: CT abd/pelvis shows acute sigmoid diverticulitis with kay perforation and pelvic phlegmon, measuring 9.5 x 3.5cm Meds Given: 1 liter NS bolus, NS @ 200ml/hr, Morphine 8mg total, Zofran 4mg, Zosyn 4.5Gm Blood Thinners: None IV Site / Drips: 20 Ga L AC, NS @ 200ml/hr Code Status: Full Isolation / Behavior Issues: None ADA Needs: None Ht/Wt: 5' 10 81.6kg Level of Care Triaged to: ED Req to Fax Demo Sheet / Push Films: yes Bed: 52 Expected date: Expected time: Means of arrival: Comments: Physicians EMS Perf Bowel ETA 5 [place] documented in this encounter [facility] 03-16-2025 Note CLINIC SURGERY HISTO RY AND PHYSICAL Patient Name: Jose Lind CLINIC CHIEF ADDENDUM Jose Lind is a 59 y.o. female with history of former smoker, s/p breast reduction, colon polyps, diverticulitis who presented to [facility] with worsening abdominal pain for a week. Patient states that for the past week she has had worsening abdominal pain. She states she has had pain like this before and was managed with antibiotics (she assumes this was diverticulitis). She denies any past abdominal surgical history. She states that she has had 3 colonoscopies within the last year due to difficulty with traversing the colon. She denies any AC/AP use. On exam, the patient is peritoneal and in acute distress over her abdominal pain. Abdomen is distended and diffusely tender. She is mildly tachycardic to 104 while in the room and normotensive CT scan done at [facility] shows sigmoid diverticulitis and free air throughout the abdomen along with air above the liver. There is a phlegmon adjacent to the sigmoid colon Labs with WBC 14, lactate 1.3 Patient with perforated sigmoid diverticulitis. She is peritoneal on exam and therefore requires urgent surgical intervention. We will take her to the OR for a laparotomy, resection, possible ostomy. I discussed with her the possibility of needing a temporary versus permanent colostomy and she is agreeable to proceed Tamica Palm MD Contact Clinic service line pager after 5pm weekdays and on weekends, use international project engineer professional caster pager *[phone] ASSESSMENT AND PLAN Jose Lind is a 59 y.o. female with history of former smoker, s/p breast reduction, colon polyps, diverticulitis who presented [facility] with worsening abdominal pain for a week. OSH CTAP: acute sigmoid diverticulitis with kay perforation and pelvic phlegmon, measuring 9.5 x 3.5cm Perforated Diverticulitis - WBC - 14.34, HGB - 13.2, Cre- 0.73 - Patient presenting with abdominal pain for a week that has been worsening since onset. Pain started in LLQ and has now become generalized - On exam patient is HDS, mildly tachycardic, she is distended but soft. She is very tender to palpation and exam is concerning for peritonitis - Imaging reviewed with evidence of perforation, mesenteric stranding, phlegmon Plan - Plan for OR today for ex-lap with possible bowel resection and ostomy - NPO, mIVF, Zosyn - Type and Screen - Discussed with Dr. Palm, clinic surgery chief Tamica Palm MD General Surgery Please contact surgical international project engineer professional caster 5PM-6AM and weekends - #[phone] Admitted with these risk variables:GI Perforation. Please see assessment and plan for further details. HISTORY OF PRESENT ILLNESS The patient endorses abdominal pain beginning Sunday evening. States the pain has been worsening since onset. Did have some dry heaving overnight but states no emesis. Has had difficulty tolerating PO intake 2/2 to her pain. Does endorse feeling feverish with diaphoresis at home. Pain is present to her B/L lower abdomen, states that the pain is the most significant to her LLQ. Does endorse 2-3 prior episodes of diverticulitis over the past few months, states pain would be relieved with Aleve. States she was treated with antibiotics during the first episode. Her first episode was in Spring 2023. Has a history of intermittent diarrhea and constipation, no bloody or melenic stools. Last colonoscopy was within the past year, states did have diverticulosis noted with evidence of colitis. Did have some polyps removed as well. Reports she had two previous attempted colonoscopies as well but they were able to pass the scope. Denies any past intra-abdominal surgeries. Review of Systems: All systems were reviewed and otherwise negative except for as noted above HISTORY Past Medical History: Diagnosis Date Diverticulitis Past Surgical History: Procedure Laterality Date BREAST SURGERY Prior to Admission medications Not on File Allergies[1] History reviewed. No pertinent family history. Social History [2] PHYSICAL EXAM VITALS BP 115/83 Pulse (!) 105 Temp 99.5 degrees F (37.5 degrees C) (Axillary) Resp (!) 19 Ht 5' 10 Wt 81.6 kg (180 lb) SpO2 92% BMI 25.83 kg/m PHYSICAL EXAM General: Awake and alert, no acute distress Head: Normocephalic Eyes: EOM grossly intact Neck: Trachea midline Cardiovascular: Hemodynamically stable Pulmonary: Nonlabored breathing Extremities: No obvious deformities, warm and well perfused Skin: Dry and intact, no obvious rash Neurological: No gross focal deficits, answering questions appropriately GI: Abd soft, markedly tender to palpation, peritoneal, moderately-distended IMAGING Recent diagnostic imaging/reports reviewed. Pertinent findings may be listed above. Please correlate with formal radiology reads. LAB (more content not included)... [facility] 03-16-2025 Discharge summary [facility] 03-16-2025 Consult note [facility] 03-16-2025 Radiology Diagnostic study note [facility] Imaging Services [address] [place], [place] [address] Abdomen/Pelvis W IV Cont ONLY MR#: [id number] Acct: [id number] Name: JOSE LIND Rep #: [id number] : 1965 F 59 From: Qamar Barron MD PCP: Dr. Rosibel Godfrey MD Status: REG ER Study:Abdomen/Pelvis W IV Cont ONLY Date of E xam: 03/16/25 Exam# [id number] Ordering Dr: Ruddy Abrams DO PROCEDURE: ABDOMEN/PELVIS W IV CONT ONLY 03/16/2025 REASON FOR EXAM: DIVERTICULITIS TECHNIQUE: Abdomen and pelvis CT with intravenous contrast. Coronal and Sagittal reconstruction series were provided. PATIENT PREPARATION: Per protocol ORAL CONTRAST TYPE: None. CONTRAST: 99 cc Isovue 370 IV One or more dose reduction techniques were used (e.g., Automated exposure control, adjustment of the mA and/or kV according to patient size, use of iterative reconstruction technique. RADIATION DOSE SUMMARY: CTDlvol: 16.94 mGy DLP: 1040.68 mGycm COMPARISON: None available FINDINGS: Bibasilar dependent atelectasis. A couple incidental hepatic cysts. The liver, adrenal glands, gallbladder, kidneys, pancreas and spleen appear within limits. Abdominal aorta appears within limits. Aortoiliac atherosclerotic calcificationnoted. No adenopathy. Segment of sigmoid colon within the left pelvis with wall thickening and edema consistent with history of diverticulitis. Extraluminal pelvic C-shaped collection measuring approximately 9.5 x 3.5 cm with bubbly material, extraluminal air and fluid with adjacent peritoneal enhancement and fat stranding, edema consistent with perforation. Scattered areas of free air throughout the abdomen and pelvis with collection beneath the right hemidiaphragm of air. Mildly prominent small bowel loop in the left lower abdomen suggests focal ileus. Normal caliber appendix. Mostly collapsed bladder appears within limits. Difficult to exclude possible small fundal uterine fibroid posteriorly. Lower lumbar facet degenerative changes. CT/Abdomen/Pelvis W IV Cont ONLY IMPRESSION: Findings are consistent with acute sigmoid diverticulitis with kay perforationand pelvic phlegmon and pneumoperitoneum as described above. Findings discussed verbally by myself with Dr. Abrams at 5:20 a.m. 03/16/2025 Reading Location: [facility] CC: Dr. Rosibel Godfrey MD; Dr. Jeff Abrams DO ~ Door Puller: Signed [facility] 12-22-2024 Evaluation note Diagnosis Onset Date Resolution Left lower quadrant abdominal pain noneactive December 22, 2024 9:53am Immunization declined noneactive Dec 9:53am SMILEY (dyspnea on exertion) noneactive December 22, 2024 9:53am Lipoma noneactive December 22 9:53am Chest pain in adult noneactive December 22, 2024 9:53am Screening for breast cancer noneactive December 22, 2024 9:53am [facility] Work Phone: [phone]) 593-119908-26-2024 [facility] Medical Records Department [address] [place] [address] History Physical Exam 06/16/24 0937 MR#: [id number] Acct: [id number] Name: JOSE LIND Rep #: [id number] : 1965 58 From: Torrey Friend DO PCP: Dr. Rosibel Godfrey MD Status:[facility] Location: [place] [address] History and Physical Date of Admission: 06/16/24 58 F who presents to the office today for initial consult. *[facility] established 7.30.24 pt reports that in late February 2024 she had a routine colonoscopy done in [place] and pt stated that they could not complete the scope due to a kink in colon. Pt had another colonoscopy done in [place] where they had the same problem and could not get the scope through. In between the two colonoscopies pt did a cologuard test that did not come back positive, but showed antibodies. Pt reports that she is feeling well overall and denies GI symptoms of concern at this time. ROS Const Constitutional: Positive for fatigue; No fever(s) or weight change ENT ENT: No difficulty swallowing Gastro GI: Positive for abdominal pain, change in bowel habits and constipation; No belching, bloating, change in stool character, coffee ground emesis, cramping, diarrhea, heartburn, difficulty swallowing, feeling full early, excessive flatus, incontinent of stools, Vomiting blood/hematemesis, Blood in stool, loose stools, Black,tarry stools, nausea/dyspepsia, pain with swallowing, vomiting or other Musc Musculoskeletal: Positive for back pain, stiffness and restless legs; No joint pain Skin Skin: No yellowing of the eye or itchy eyes Neuro Neurology: Positive for restless legs Psych Psychiatric: Positive for anxiety and No depression Endo Endocrine: Positive for fatigue; No weight change Aller/Imm Allergy/Immunologic: No itchy eyes Kaiden/Lymp Hematologic/Lymphatic: Positive for easy bruising; No easy bleeding Exam Const General: cooperative, healthy appearing, no acute distress, well developed, not diaphoretic and not ill appearing Nutritional Appearance: well nourished Orientation: alert and oriented x3 Limitations: mental status not altered HENMT Head: normal to inspection, normocephalic and atraumatic Ears: hearing grossly normal bilaterally and TM's normal bilaterally Face and sinus: normal facial exam Mouth: oral mucosae normal and moist mucous membranes Teeth and gingiva: dentition normal Throat: posterior oropharynx normal and uvula midline Eyes Conjunctivae: conjunctivae normal Sclera: sclerae normal Pupils: PERRL EOM: EOM intact bilaterally Neck Neck: no lymphadenopathy Thyroid: thyroid normal Lymphatic: no lymphadenopathy noted Chest Chest palpation inspection: normal inspection of the chest Resp Effort Inspection: normal respiratory effort, able to speak in complete sentences, no audible wheezes and no cough Auscultation: Bilateral: Clear to Auscultation Cardio Rate: regular rate Rhythm: regular rhythm Heart Sounds: S1 normal, S2 normal and no murmurs Pulses: radial pulses present bilaterally 2+ GI Inspection: non-distended Auscultation: normal bowel sounds Palpation: soft, no hepatosplenomegaly and nontender Skin General: no rashes or lesions noted and dry skin Wounds: no wounds Neuro General: patient alert, patient oriented x3, gait normal, moves all extremities, CN's II-XI intact bilaterally and not confused Cranial Nerves: CN's II-XI intact bilaterally, PERRL, accommodation normal, EOM intact bilaterally, no nystagmus, facial strength normal, tongue midline, hearing normal, able to rotate head bilaterally and able to elevate shoulders bilaterally Cognition: normal cognition Speech: speech normal Gait: normal gait Motor: strength 5/5 throughout and no pronator drift Sensory Exam: no sensory deficits noted Coordination: [id number]-[id number] test normal, phzj-[id number] test normal, Romberg test normal and rapid alternating movement UE normal Other: Difficult to obtain upper and lower extremities bilaterally Extrem General: normal to inspection and no edema Psych Appearance: grossly normal Mental Status: mental status grossly normal Affect: normal affect Attitude: cooperative Assessment and Plan Assessment and Plan (1) History of colon polyps: Status: Acute Comment: Found 2014 and were benign Plan: Very pleasant 58-year-old with no past medical history except for intermittent diverticulitis. She underwent unsuccessful colonoscopy x 2. She had a Cologuard that was positive. She will undergo colonoscopy. She was explained alternatives, risk, benefits including not withstanding bleeding, infection, sepsis, perforation, need for emergent urgent . She will have an ASA of 3. I have examined the patient and the H P has been reviewed. There are no clinical changes since date of exam. 06/16/24 0938 Cos (more content not included)...[facility]04-11-2024 Instructions* Patient Instructions* Milli Sung MD - 01/31/2024 1:04 PM EDT Images from the original note were not included. Bowel Preparation Instructions for: Golytely, Nulytely, Trilyte or Colyte (polyethylene glycol 3350and electrolytes) IF YOU DO NOT FOLLOW THESE DIRECTIONS, YOUR COLONOSCOPY WILL BE CANCELLED. [place] Instructions: Your bowel must be empty so that your doctor can clearly view your colon. Follow all of the instructions in this handout EXACTLY as they are written. Do NOT eat any solid food the ENTIRE day before your colonoscopy. Drink only clear liquids. Buy your bowel preparation at least 5 days before your colonoscopy. TRANSPORTATION on the Day of Your Exam A responsible person MUST be present with you at Check In prior to your colonoscopy and REMAIN in the endoscopy area until you are discharged. You are NOT ALLOWED to drive, take a taxi or bus, or leave the Endoscopy Center ALONE. If you do not have a responsible garbage truck driver (family member or friend) with you to take you home, your exam cannot be done with sedation and will be cancelled. Please bring a list of all of your current medications, including any Over-the Counter medications with you. Medications If you take insulin, diabetic medications or blood thinners such as Coumadin (warfarin), Plavix (clopidogrel), Ticlid (ticlopidine hydrochloride), Agrylin (anagrelide), Xarelto (Rivaroxaban), Pradaxa(Dabigatran), Eliquis (Apixaban), and Effient (Prasugrel). You MUST call the doctors who orders those medicines for instructions on altering the dosage before your colonoscopy. All other medications should be taken the day of the exam with a sip of water including ASPIRIN. Five (5) Days Before Your Colonoscopy Do NOT take medicines that stop diarrhea - such as Imodium, Kaopectate, or Pepto Bismol. Do NOT take fiber supplements - such as Metamucil, Citrucel, or Perdiem. Do NOT take products that contain iron - such as multi-vitamins (the label lists what is in the products). Do NOT take Vitamin E. Buy the prescription bowel preparation solution at your local pharmacy or drugstore pharmacy. 09/2019 Bowel Preparation Instructions for: Golytely, Nulytely, Trilyte or Colyte (polyethylene glycol 3350and electrolytes) Three (3) Days Before Your Colonoscopy Do NOT eat high-fiber foods - such as popcorn, beans, seeds (flax, sunflower, quinoa), multigrain bread, nuts, salad/vegetables, or fresh and dried fruit. One (1) Day Before Your Colonoscopy Only drink clear liquids the ENTIRE DAY before your colonoscopy. Do NOT eat any solid foods. Drink at least 8 ounces of clear liquids every hour after waking up. The clear liquids you can drink include: Clear Liquid (NO RED LIQUIDS) DO NOT DRINK Gatorade, Pedialyte or Powerade Clear broth or bouillon Coffee or tea (no milk or non-dairy creamer) Carbonated and non-carbonated soft drinks Sumanth-Aid or other fruit flavored drinks Strained fruit juices (no pulp) Jell-O, popsicles, hard candy Water Alcohol Milk or non-dairy creamers Noodles or vegetables in soup Juice with pulp Liquid you cannot see through Do not use tobacco/vaping products The bowel preparation solution will be consumed in two parts. Mix the solution the evening before your colonoscopy and refrigerate before drinking. You may add the flavor pack that came with the bowel preparation. Do NOT add ice, sugar or any other flavorings to the solution. Part 1 At 6:00 PM - Evening before your colonoscopy Drink an 8-oz glass of bowel preparation every 10 minutes for a total of 8 glasses. You may continue to drink clear liquids until midnight. Part 2 On the day of your colonoscopy you may drink clear liquids up to (three) 3 hours before your procedure. 4 1/2 hours before your colonoscopy Drink an 8-oz glass of bowel preparation every 10 minutes for a total of 8 glasses. Fifteen (15) minutes later, drink an 8-oz glass of clear liquids every 15 minutes for a total of 2 glasses. You may continue to drink clear liquids up to (three) 3 hours before your exam. 2 09/2019 [facility] NoteHNO ID: [id number] Author: MILLI SUNG MD Service: ? Author Type: Physician Type: Progress Notes Filed: 01/31/2024 13:05 Note Text: Difficult tortuous sigmoid colon, repeat colonoscopy to be done at main F. Orders placed.[facility]04-11-2024 History of Present illness Narrative* Milli Sung MD - 01/31/2024 1:03 PM EDT Difficult tortuous sigmoid colon, repeat colonoscopy to be done at main F. Orders placed. [facility] Telephone encounter Note * Telephone Encounter - Evelia Connolly - 01/14/2024 11:26 AM EDT 01/31/2024 COLON LODI [facility]03-25-2024 Miscellaneous Notes* Telephone Encounter - Evelia Connolly - 01/14/2024 11:26 AM EDT 01/31/2024 COLON LODI documented in [facility] Instructions* Patient Instructions* Milli Sung MD - 01/14/2024 11:15 AM EDT Images from the original note were not included. Bowel Preparation Instructions for: Golytely, Nulytely, Trilyte or Colyte (polyethylene glycol 3350and electrolytes) IF YOU DO NOT FOLLOW THESE DIRECTIONS, YOUR COLONOSCOPY WILL BE CANCELLED. [place] Instructions: Your bowel must be empty so that your doctor can clearly view your colon. Follow all of the instructions in this handout EXACTLY as they are written. Do NOT eat any solid food the ENTIRE day before your colonoscopy. Drink only clear liquids. Buy your bowel preparation at least 5 days before your colonoscopy. TRANSPORTATION on the Day of Your Exam A responsible person MUST be present with you at Check In prior to your colonoscopy and REMAIN in the endoscopy area until you are discharged. You are NOT ALLOWED to drive, take a taxi or bus, or leave the Endoscopy Center ALONE. If you do not have a responsible garbage truck driver (family member or friend) with you to take you home, your exam cannot be done with sedation and will be cancelled. Please bring a list of all of your current medications, including any Over-the Counter medications with you. Medications If you take insulin, diabetic medications or blood thinners such as Coumadin (warfarin), Plavix (clopidogrel), Ticlid (ticlopidine hydrochloride), Agrylin (anagrelide), Xarelto (Rivaroxaban), Pradaxa(Dabigatran), Eliquis (Apixaban), and Effient (Prasugrel). You MUST call the doctors who orders those medicines for instructions on altering the dosage before your colonoscopy. All other medications should be taken the day of the exam with a sip of water including ASPIRIN. Five (5) Days Before Your Colonoscopy Do NOT take medicines that stop diarrhea - such as Imodium, Kaopectate, or Pepto Bismol. Do NOT take fiber supplements - such as Metamucil, Citrucel, or Perdiem. Do NOT take products that contain iron - such as multi-vitamins (the label lists what is in the products). Do NOT take Vitamin E. Buy the prescription bowel preparation solution at your local pharmacy [facility] 09/2019 Bowel Preparation Instructions for: Golytely, Nulytely, Trilyte or Colyte (polyethylene glycol 3350and electrolytes) Three (3) Days Before Your Colonoscopy Do NOT eat high-fiber foods - such as popcorn, beans, seeds (flax, sunflower, quinoa), multigrain bread, nuts, salad/vegetables, or fresh and dried fruit. One (1) Day Before Your Colonoscopy Only drink clear liquids the ENTIRE DAY before your colonoscopy. Do NOT eat any solid foods. Drink at least 8 ounces of clear liquids every hour after waking up. The clear liquids you can drink include: Clear Liquid (NO RED LIQUIDS) DO NOT DRINK Gatorade, Pedialyte or Powerade Clear broth or bouillon Coffee or tea (no milk or non-dairy creamer) Carbonated and non-carbonated soft drinks Sumanth-Aid or other fruit flavored drinks Strained fruit juices (no pulp) Jell-O, popsicles, hard candy Water Alcohol Milk or non-dairy creamers Noodles or vegetables in soup Juice with pulp Liquid you cannot see through Do not use tobacco/vaping products The bowel preparation solution will be consumed in two parts. Mix the solution the evening before your colonoscopy and refrigerate before drinking. You may add the flavor pack that came with the bowel preparation. Do NOT add ice, sugar or any other flavorings to the solution. Part 1 At 6:00 PM - Evening before your colonoscopy Drink an 8-oz glass of bowel preparation every 10 minutes for a total of 8 glasses. You may continue to drink clear liquids until midnight. Part 2 On the day of your colonoscopy you may drink clear liquids up to (three) 3 hours before your procedure. 4 1/2 hours before your colonoscopy Drink an 8-oz glass of bowel preparation every 10 minutes for a total of 8 glasses. Fifteen (15) minutes later, drink an 8-oz glass of clear liquids every 15 minutes for a total of 2 glasses. You may continue to drink clear liquids up to (three) 3 hours before your exam. 2 09/2019 documented in this [facility]03-[facility]-2024 NoteHNO ID: [id number] Author: MILLI SUNG MD Service: ? Author Type: Physician Type: Progress Notes Filed: 01/15/2024 15:32 Note Text: HISTORY AND PHYSICAL Jose Lind 1965 REFERRING PHYSICIAN: Milli Sung MD CHIEF COMPLAINT: Consult (Screening for colon cancer) HPI: The patient is a 58 year old female referred for endoscopy. Jose notes that she had an attempted colonoscopy last year at [facility] and she was told that there was a kink in her colon and the colonoscopy could not be completed. She had a colonoscopy prior to this, about 7 years ago and was told to have a 5 year follow up for colon polyp The patient denies blood in stools, denies abdominal pain, and denies changes in bowel habits. The patient notes no colon cancer in immediate family. PAST MEDICAL HISTORY Diagnosis Date History of colonic polyps Menorrhagia Other and unspecified hyperlipidemia Seasonal allergies Unspecified essential hypertension PAST SURGICAL HISTORY Procedure Laterality Date ANESTHESIA RECONSTRUCTION BREAST REDUCTION Current Outpatient Medications Medication Sig NAPROXEN SODIUM (ALEVE ORAL) Take 3 tablets by mouth as needed (joint pain). DOXYCYCLINE MONOHYDRATE ORAL Take by mouth. (Patient not taking: Reported on 01/14/2024) AZELAIC ACID (FINACEA TOPICAL) Apply to affected area. (Patient not taking: Reported on 01/14/2024) aspirin, enteric coated (ECOTRIN LOW STRENGTH) 81 mg ORAL EC tablet Take one(1) tablet daily. (Patient not taking: Reported on 01/14/2024) RED YEAST RICE EXTRACT 600 MG CAP Take one(1) tablet two(2) times daily. (Patient not taking: Reported on 01/14/2024) No current facility-administered medications for this visit. ALLERGIES: Patient has no known allergies. PERSONAL HISTORY: Social History Tobacco Use Smoking status: Former Years: 20 Types: Cigarettes Quit date: 10/22/2020 Years since quittin.2 Smokeless tobacco: Never Vaping Use Vaping Use: Never used Substance Use Topics Alcohol use: Yes Comment: Occasionally Drug use: No FAMILY HISTORY Problem Relation Age of Onset other (cerebral vascular accident) Mother Heart Attack Father Hypertension Father Heart disease Father Lymphoma Brother Heart Attack Brother Heart Brother Stroke Maternal Grandmother Breast Cancer Paternal Grandmother The review of systems data was entered by the nurse and reviewed by me Nursing Notes: Maryann Hair LPN 01/14/2024 11:09 AM Signed REVIEW OF SYSTEMS: General: The patient denies fatigue, denies weight loss, denies weight gain, denies feeling hot, and denies feelings of cold. Eyes: The patient denies glaucoma, denies eye injury/surgery, does not wear glasses or contacts. Ear/Nose/Throat: The patient denies allergies, denies hayfever, denies ear infections, and denies bloody noses. Cardiovascular: The patient denies chest pain, denies heart disease, denies high blood pressure,denies cardiac stent, denies prior heart attack, denies irregular heart beat, denies high cholesterol, denies poor circulation, denies heart failure, other cardiac issues, denies claudication, denies cold feet, denies peripheral arterial stent. Respiratory: The patient denies tuberculosis, denies pneumonia, denies frequent cough, denies pulmonary embolism, denies shortness of breath, and denies coughing up blood. Gastrointestinal: The patient denies difficulty swallowing, denies acid reflux, denies ulcers, denies vomiting, denies jaundice/hepatitis, denies gallbladder problems, denies black or tarry stools, denies hemorrhoids, denies bleeding from rectum, denies diverticulitis, NOTES constipation, denies diarrhea, denies loss of stool control, and denies hernias. Kidney/Bladder: The patient denies kidney stones, denies urine infections, and denies bloody urine. Skin: The patient denies a history of skin cancer, denies bleeding/changing moles, and denies a history of skin rash. Neurologic: The patient denies a history of epilepsy/convulsions, denies headaches, denies head/spinal injuries, and denies stroke/TIA. Psychiatric: The patient denies psychiatric medications, denies depression, and denies voices, denies substance abuse. Endocrine: The patient denies thyroid disorders, denies diabetes, and denies hormonal problems. Hematologic: The patient denies a history of bruising, denies bleeding, and denies anemia, denies blood clots. Infections: The patient denies a history of measles and mumps, denies rheumatic fever, and denies sexually transmitted diseases. Musculoskeletal: The patient denies back pain/injury, denies back problems, denies sciatica, denies knee/foot trouble, denies arthritis, or denies gout. When was patient's last Mammogram screening? 2022 Last Colonoscopy: 2022 Maryann Hair LPN PHYSICAL EXAMINATION: General: The patient is 58 year old female, well nourished, well hydrated in no acute (more content not included)...[facility]03-25-2024 History of Present illness Narrative* Milli Sung MD - 01/14/2024 11:12 AM EDT HISTORY AND PHYSICAL Jose Lind 1965 REFERRING PHYSICIAN: Milli Sung MD CHIEF COMPLAINT: Consult (Screening for colon cancer) HPI: The patient is a 58 year old female referred for endoscopy. Jose notes that she had an attempted colonoscopy last year at [facility] and she was told that there was a kink in her colon and the colonoscopy could not be completed. She had a colonoscopy prior to this, about 7 years ago and was told to have a 5 year follow up for colon polyp The patient denies blood in stools, denies abdominal pain, and denies changes in bowel habits. The patient notes no colon cancer in immediate family. PAST MEDICAL HISTORY Diagnosis Date History of colonic polyps Menorrhagia Other and unspecified hyperlipidemia Seasonal allergies Unspecified essential hypertension PAST SURGICAL HISTORY Procedure Laterality Date ANESTHESIA RECONSTRUCTION BREAST REDUCTION Current Outpatient Medications Medication Sig NAPROXEN SODIUM (ALEVE ORAL) Take 3 tablets by mouth as needed (joint pain). DOXYCYCLINE MONOHYDRATE ORAL Take by mouth. (Patient not taking: Reported on 01/14/2024) AZELAIC ACID (FINACEA TOPICAL) Apply to affected area. (Patient not taking: Reported on 01/14/2024) aspirin, enteric coated (ECOTRIN LOW STRENGTH) 81 mg ORAL EC tablet Take one(1) tablet daily. (Patient not taking: Reported on 01/14/2024) RED YEAST RICE EXTRACT 600 MG CAP Take one(1) tablet two(2) times daily. (Patient not taking: Reported on 01/14/2024) No current facility-administered medications for this visit. ALLERGIES: Patient has no known allergies. PERSONAL HISTORY: Social History Tobacco Use Smoking status: Former Years: 20 Types: Cigarettes Quit date: 10/22/2020 Years since quittin.2 Smokeless tobacco: Never Vaping Use Vaping Use: Never used Substance Use Topics Alcohol use: Yes Comment: Occasionally Drug use: No FAMILY HISTORY Problem Relation Age of Onset other (cerebral vascular accident) Mother Heart Attack Father Hypertension Father Heart disease Father Lymphoma Brother Heart Attack Brother Heart Brother Stroke Maternal Grandmother Breast Cancer Paternal Grandmother The review of systems data was entered by the nurse and reviewed by me Nursing Notes: Maryann Hair LPN 01/14/2024 11:09 AM Signed REVIEW OF SYSTEMS: General: The patient denies fatigue, denies weight loss, denies weight gain, denies feeling hot, and denies feelings of cold. Eyes: The patient denies glaucoma, denies eye injury/surgery, does not wear glasses or contacts. Ear/Nose/Throat: The patient denies allergies, denies hayfever, denies ear infections, and denies bloody noses. Cardiovascular: The patient denies chest pain, denies heart disease, denies high blood pressure,denies cardiac stent, denies prior heart attack, denies irregular heart beat, denies high cholesterol, denies poor circulation, denies heart failure, other cardiac issues, denies claudication, denies cold feet, denies peripheral arterial stent. Respiratory: The patient denies tuberculosis, denies pneumonia, denies frequent cough, denies pulmonary embolism, denies shortness of breath, and denies coughing up blood. Gastrointestinal: The patient denies difficulty swallowing, denies acid reflux, denies ulcers, denies vomiting, denies jaundice/hepatitis, denies gallbladder problems, denies black or tarry stools, denies hemorrhoids, denies bleeding from rectum, denies diverticulitis, NOTES constipation, denies diarrhea, denies loss of stool control, and denies hernias. Kidney/Bladder: The patient denies kidney stones, denies urine infections, and denies bloody urine. Skin: The patient denies a history of skin cancer, denies bleeding/changing moles, and denies a history of skin rash. Neurologic: The patient denies a history of epilepsy/convulsions, denies headaches, denies head/spinal injuries, and denies stroke/TIA. Psychiatric: The patient denies psychiatric medications, denies depression, and denies voices, denies substance abuse. Endocrine: The patient denies thyroid disorders, denies diabetes, and denies hormonal problems. Hematologic: The patient denies a history of bruising, denies bleeding, and denies anemia, denies blood clots. Infections: The patient denies a history of measles and mumps, denies rheumatic fever, and denies sexually transmitted diseases. Musculoskeletal: The patient denies back pain/injury, denies back problems, denies sciatica, deniesknee/foot trouble, denies arthritis, or denies gout. When was patient's last Mammogram screening? 2022 Last Colonoscopy: 2022 Maryann Hair LPN PHYSICAL EXAMINATION: General: The patient is 58 year old female, well nourished, well hydrated in no acute distress. Thepatient is oriented to time, place, and person. VITALS: Blood pressure 122/82, pulse 87, temperature 36.2 C (97.2 F), height 177.8 cm (5' 10), weight 84.2 kg (185 lb 9.6 oz), last menstrual period 09/25/2012, SpO2 97%. Body mass index is 26.63 kg/m . Head: Normal cephalic, atraumatic Eyes: pupils are equally round, sclera are clear/anicteric Neck is supple with no tracheal deviation Cardiac: normal heart sounds, regular Respiratory: Normal respiratory excursion and pattern. Abdominal exam: benign Extremities: no clubbing, cyanosis or edema. Neuro: non focal Psych: normal mood Assessment IMPRESSION: screening for colon cancer for history of colon polyps via colonoscopy PLAN: I have discussed the above with the patient. I have offered colonoscopy , possible biopsies I have explained the procedure to the patient. I have counseled the patient as to the risks of the procedure, including but not limited to: infection, bleeding, injury to any intrabdominal organs such as liver/spleen, perforation of the GI tract,inability to complete the procedure, complications of anesthesia, etc. - the patient understands. I have explained to the patient the difference between IV conscious sedation and MAC anesthesia - and I have offered either, according to the patient's wishes. I have explained that with IV conscioussedation there is no anesthesia provider available and therefore there is a limitation of the amount of IV medications that can be given and that the patient may wake up in the middle of the procedure and/or experience pain/discomfort during the procedure. Further discussion was done and the patient was given the opportunity to ask questions and all questions were answered. The patient chooses MAC anesthesia. The patient wishes to proceed. I have answered all questions to the patient s satisfaction and the patient has no further questions. My clinic staff has educated the patient as to the colon cleansing regimen and I have prescribed Golytely for the colon cleansing solution. The patient will be scheduled for the procedure at [facility]. Diagnoses: (Z86.010) History of colonic polyps (primary encounter diagnosis) I have confirmed and edited as necessary, the PFSH and ROS obtained by others. Consultation requested by Dr. Rosibel Godfrey for an opinion regarding patient's history of colon polyp. My final recommendations will be communicated back to the requesting physician by way of sharedMedical record or letter to requesting physician via US mail. Medical Decision Making: Risk: Low: Low risk from testing/treatment Medical Decision Making Level: 2 - Straightforward Milli Sung MD documented in this [facility] Nurse Note* Maryann Hair LPN - 01/14/2024 11:00 AM EDT REVIEW OF SYSTEMS: General: The patient denies fatigue, denies weight loss, denies weight gain, denies feeling hot, and denies feelings of cold. Eyes: The patient denies glaucoma, denies eye injury/surgery, does not wear glasses or contacts. Ear/Nose/Throat: The patient denies allergies, denies hayfever, denies ear infections, and denies bloody noses. Cardiovascular: The patient denies chest pain, denies heart disease, denies high blood pressure,denies cardiac stent, denies prior heart attack, denies irregular heart beat, denies high cholesterol, denies poor circulation, denies heart failure, other cardiac issues, denies claudication, denies cold feet, denies peripheral arterial stent. Respiratory: The patient denies tuberculosis, denies pneumonia, denies frequent cough, denies pulmonary embolism, denies shortness of breath, and denies coughing up blood. Gastrointestinal: The patient denies difficulty swallowing, denies acid reflux, denies ulcers, denies vomiting, denies jaundice/hepatitis, denies gallbladder problems, denies black or tarry stools, denies hemorrhoids, denies bleeding from rectum, denies diverticulitis, NOTES constipation, denies diarrhea, denies loss of stool control, and denies hernias. Kidney/Bladder: The patient denies kidney stones, denies urine infections, and denies bloody urine. Skin: The patient denies a history of skin cancer, denies bleeding/changing moles, and denies a history of skin rash. Neurologic: The patient denies a history of epilepsy/convulsions, denies headaches, denies head/spinal injuries, and denies stroke/TIA. Psychiatric: The patient denies psychiatric medications, denies depression, and denies voices, denies substance abuse. Endocrine: The patient denies thyroid disorders, denies diabetes, and denies hormonal problems. Hematologic: The patient denies a history of bruising, denies bleeding, and denies anemia, denies blood clots. Infections: The patient denies a history of measles and mumps, denies rheumatic fever, and denies sexually transmitted diseases. Musculoskeletal: The patient denies back pain/injury, denies back problems, denies sciatica, deniesknee/foot trouble, denies arthritis, or denies gout. When was patient's last Mammogram screening? 2022 Last Colonoscopy: 2022 Maryann Hair LPN documented in this encounterF[facility]03-06-2024 Miscellaneous Notes* Telephone Encounter - Jennifer Dowell RN - 12/26/2023 8:48 AM EST Received a request for a consultation from Dr. Rosibel Godfrey at [facility]. Scheduling was unable to reach patient and a letter was mailed to her. Histories were updated in [facility] from the referral information. Jennifer Dowell RN documented in this encounterFulton County [facility]05-05-2022 [facility]POBL[facility]CH[facility] & PHYSICAL NAME ACCOUNT SEX AGE ADMIT DISCHARGE PT MED. RECORD# NUMBER DATE DATE TYPE DIOGO [id number] F 56 02/16/22 2 JOSE Courtney [id number] ROOM: [facility] DATE OF : 63 DICTATING PHYSICIAN: Dilia Fuentes CHIEF COMPLAINT: Colon cancer screening. HISTORY [...] & Physical JOSE LIND :1965 Dictated By: Dilia Fuentes MD 02/16/22 07:45 JOB #: [id number] Transcribed By: am 02/16/22 08:19 Electronically signed by: E-SIGN DR. FUENTES 02/23/22 10:57 Update to H&P: [ ] No changes: I have examined the patient and reviewed the H&P and there are no changes. [ ] As previously dictated with the following changes: ____ ____ ____ PHYSICIAN SIGNATURE: TIME: DATE: Page 2 of 2 JENNIFERELIEZERJOSE History & PhysicalJoel [facility] Consult note Author Pedro Franklin [facility] Note Date/Time March 16, 2025 7:22a [facility] Medical Records Department [address] [place] [id number] Consultation - Surgical 03/16/25 0716 MR#: [id number] Acct: [id number] Name: JOSE LIND Rep #:[id number] : 1965 59 From: Pedro boland MD PCP: Dr. Rosibel Godfrey MD Status:REG ER Location: ED Assessment & Plan Assessment/Plan (1) Perforation of sigmoid colon due to diverticulitis: PLAN: The patient presents with 24 hours of abdominal pain. CT scan revealed perforation of diverticulitis of the sigmoid. I reviewed the patient's CT scan. Her diverticulitis appears to be very low in the pelvis. The inflammation is almost all below the sacral promontory. This is very low in the pelvis and given that it is a holiday I have no urology coverage and I do not have colorectal surgery here at this hospital. I would like to transfer the patient. I reached out to [facility] who accepted the patient. Patient will be transferred to [facility] as per her request. Pedro Franklin MD Pager: [facility] [address] [place] [address], [address] [place] [address] Office: HPI Consult Data Date of Consult: 03/16/25 HPI Narrative HPI Narrative: JOSE LIND, is a 59 F who presents with abdominal pain of 24 hours. She denies fevers or chills. She reports the pain is low in her abdomen but then itbecame more diffuse. She does have a history of diverticulitis in the past. She was not hospitalized for this. She had a colonoscopy last year which was difficult due to tortuosity from the diverticulitis. [facility] Medical History Colitis Wears glasses Post-menopausal Alcohol use Easy bruising Former smoker Shortness of breath on exertion History of stress test Menorrhagia History of colon polyps Home Medications ?Medication ?Instructions ?Recorded ?Last Taken ?Type loratadine 10 mg tablet 10 mg PO DAILY PRN allergy s ymptoms 08/23/23 Unknown History naproxen sodium 220 mg tablet 220 mg PO BID PRN pain 1 10/23/22 Unknown History (Aleve) Allergy/AdvReac Type Severity Reaction Status Date / Time No Known Allergies Allergy Verified 12/22/24 09:55 Family History Grandmother Breast cancer Brother Myocardial infarction Father Myocardial infarction Hypertension Heart disease Brother Cancer lymphoma Mother CVA (cerebral vascular accident) Surgical History Hx of colonoscopy History of hysteroscopy Status post breast reduction Social History household members: spouse current occupational status: employed 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 - [employer] Smoking Status: Former smoker quit date: 10/22/20 pack-years: 20 Electronic Cigarette Use: not used alcohol intake: current alcohol intake frequency: holidays/special occasions only substance use type: does not use do you feel safe at home: Yes ROS Constitutional Constitutional: Denies anorexia, chills, fatigue or fever(s) Eyes Eyes: Denies blurry vision ENT HEENT: Denies abnormal hearing Cardiovascular Cardiovascular: Denies chest pain Respiratory/Chest Respiratory/Chest: Denies cough or dyspnea Gastrointestinal Gastrointestinal: Reports abdominal pain, bloating and constipation; Denies nausea or vomiting Genitourinary Genitourinary: Denies change in urinary stream Musculoskeletal Musculoskeletal: Denies abnormal gait Integumentary Integumentary: Denies jaundice or new lesions Neurologic Neurologic: Denies abnormal gait Psychiatric Psychiatric: Denies anxiety Endocrine Endocrinology: Denies flushing Physical Exam Const alert and oriented x3 HEENT normocephalic Eyes PERRL Cardio Rate: regular rate Rhythm: regular rhythm GI soft to palpation Inspection: abdominal distention Palpation: tender Lab / Micro Data 03/16/25 03:45 03/16/25 03:45 Labs: Laboratory Results - last 24 hr 03/16/25 03:45: WBC 15.7 H, RBC 4.50, Hgb 14.3, Hct 42.3, MCV 94.0, MCH 31.8, MCHC 33.8, RDW Std Deviation 57.5 H, RDW Coeff of Laura 16.8 H, Plt Count 424, MPV9.0, Immature Gran % (Auto) 0.600, Neut % (Auto) 89.3 H, Lymph % (Auto) 4.7 L, Gallia % (Auto) 5.0, Eos % (Auto) 0.1, Baso % (Auto) 0.3, Absolute Neuts (auto) 14.0 H, Absolute Lymphs (auto) 0.74 L, Nucleated RBC % 0, Sodium 133, Potassium 4.0, Chloride 98, Carbon Dioxide 20.9 L, Anion Gap 15, BUN 13, Creatinine 0.70, Estim Creat Clear Calc 92.42, Est GFR (MDRD) Non-Af 98, BUN/Creatinine Ratio 18.3, Glucose 137 H, Calcium 9.4, Total Bilirubin 0.99, Direct Bilirubin 0.49 H,AST 19, ALT 14, Alkaline Phosphatase 93, Total Protein 8.0, Albumin 3.6, Globulin 4.4 H, Lipase 13, Urine Color Yellow, Urine Clarity Sl. Cloudy, Urine pH5.0, Ur Specific [place] 1.025, Urine Protein 100 H, Urine Glucose (UA) Normal, Urine Ketones 50 H, Urine Occult Blood 25 H, Urine Nitrite Negative, Urine Bilirubin 1 H, Urine Urobilinogen 4 H, Ur Leukocyte Esterase 25 H, Urine RBC 0 SEEN, Urine WBC 0-5 SEEN, Ur Squamous Epith Cells 5- 10 SEEN, Urine Bacteria 2+, Urine Mucus 3+ Imaging Radiology Impression Abdomen/Pelvis CT 03/16/25 03:52 IMPRESSION: Findings are consistent with acute sigmoid diverticulitis with kay perforationand pelvic phlegmon and pneumoperitoneum as described above. Findings discussed verbally by myself with Dr. Abrams at 5:20 a.m. 03/16/2025 Reading Location: [facility] Charges/Coding Visit Charges Inpatient E&M: 51234 Init Hosp L3 03/16/25 0722 <Electronically signed by ePdro Franklin MD> Cosigner Signature (if applicable): CC: Dr. Rosibel Godfrey MD~ Signed [facility] Work Phone: Discharge summary Author Jeff Abrams [facility] Note Date/Time March 16, 2025 8:18a m [facility] Medical Records Department [address] [place] [id number] Emergency Department Summary 03/16/25 MR#: [id number] Acct: [id number] Name: JOSE LIND Rep #:[id number] : 1965 59 From: Jeff Corral PCP: Dr. Rosibel Godfrey MD Status:REG ER Location: ED HPI HPI - GI History of Present Illness Chief Complaint: Abd Pain Informant: patient Narrative Narrative: 59-year-old female presenting to the emergency room with the chief complaint of abdominal pain and bloating. History is a bit difficult to obtain as the patient answers in very short 1-2 word sentences even on open-ended questions. Patient states she has had a history of diverticulitis. She states that this isthe second time she has had to come to the hospital for it. First time I do notsee an ED visit. She had a colonoscopy by Dr. Rich in 2023 that showed diverticulitis in the treated with Cipro and Flagyl. Patient states that in thepast 24 hours she has developed pain which she points to the suprapubic region and abdominal bloating. She denies any vomiting. She states that about 2 hoursago she began to have diarrhea. No reported fevers. She denies any abdominal surgeries. She states that she has had a cold over the past week and a half hasbeen taking DayQuil NyQuil and her ribs are sore from coughing. PFSH PFS Medical History Colitis Wears glasses Post-menopausal Alcohol use Easy bruising Former smoker Shortness of breath on exertion History of stress test Menorrhagia History of colon polyps Home Medications ?Medication ?Instructions ?Recorded ?Last Taken ?Type loratadine 10 mg tablet 10 mg PO DAILY PRN allergy s ymptoms 08/23/23 Unknown History naproxen sodium 220 mg tablet 220 mg PO BID PRN pain 1 10/23/22 Unknown History (Aleve) Allergy/AdvReac Type Severity Reaction Status Date / Time No Known Allergies Allergy Verified 12/22/24 09:55 Family History Grandmother Breast cancer Brother Myocardial infarction Father Myocardial infarction Hypertension Heart disease Brother Cancer lymphoma Mother CVA (cerebral vascular accident) Surgical History Hx of colonoscopy History of hysteroscopy Status post breast reduction Social History household members: spouse current occupational status: employed 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 - [employer] Smoking Status: Former smoker quit date: 10/22/20 pack-years: 20 Electronic Cigarette Use: not used alcohol intake: current alcohol intake frequency: holidays/special occasions only substance use type: does not use do you feel safe at home: Yes ROS ROS ED Constitutional Constitutional ED: Denies chills, fever(s) or weight loss Eyes Eyes: Denies change in vision or diplopia ENT ENT ED: Denies ear pain, rhinorrhea or sore throat Cardiovascular Cardiovascular: Denies chest pain, orthopnea, palpitations or racing heartbeat Respiratory/Chest Respiratory/Chest: Denies cough, dyspnea or orthopnea Gastrointestinal Gastrointestinal: Reports abdominal pain and diarrhea; Denies nausea or vomiting Genitourinary Genitourinary ED: Denies dysuria, hematuria or urinary frequency Musculoskeletal Musculoskeletal: Denies arthralgias or myalgias Integumentary Denies abscess or rash Neurologic Neurologic: Denies headache(s) or weakness Psychiatric Psychiatric: Denies anxiety, depression, suicidal ideation or suicidal thoughts Endocrine Endocrinology: Denies polydipsia, polyphagia or polyuria Allergic/Immunologic Allergic/Immunologic ED: Denies mouth swelling, tongue swelling or urticaria EXAM Physical Exam Const Vital Signs: 03/16/25 03:32 03/16/25 03:45 03/16/25 05:00 Temperature 97.7 F L 97.7 F L 97.7 F L Temperature Source Oral Oral Oral Pulse Rate 94 91 93 Respiratory Rate 16 22 H 18 Blood Pressure 90/55 L 110/84 H 112/83 H Blood Pressure Mean 66 92 92 Pulse Ox 97 93 Oxygen Delivery Method Room Air Room Air Room Air 03/16/25 05:31 03/16/25 06:00 Temperature 97.8 F Temperature Source Oral Pulse Rate 94 92 Respiratory Rate 18 18 Blood Pressure 103/72 103/72 Blood Pressure Mean 82 82 Pulse Ox 95 97 Oxygen Delivery Method Room Air Room Air Positive well nourished and well developed General Appearance ED: well developed HEENT Reports normocephalic, head/scalp atraumatic and moist mucous membranes Eyes PERRL and EOMs intact bilaterally Neck no lymphadenopathy, supple and no JVD Resp normal respiratory effort and clear to auscultation bilaterally Cardio regular rate, regular rhythm and no murmurs GI GI Narrative: The abdomen is diffusely tender to palpation with guarding. No tympany on percussion. Inspection: Negative for abdominal distention Auscultation: normoactive bowel sounds Palpation: soft, tender and guarding Back/Spine no CVA tenderness and normal ROM Extremity normal to inspection General Extremety ED: Negative for edema General Extremity: Negative for edema Neuro oriented x3 and CN's II-XII intact bilaterally Sensorium / Orientation: alert Motor Exam: strength 5/5 throughout Psych mental status grossly normal Mood & Affect: Negative for depressed or tearful Skin no rashes or lesions noted and no wounds MDM MDM MDM Narrative Medical decision making narrative: Differential diagnosis includes but not limited to diverticulitis bowel obstruction intra-abdominal abscess bowel perforation Patient's white count is elevated at 15.7 creatinine 0.7 normal liver enzymes lipase 13 urinalysis shows contamination of 5-10 squamous cells 2+ bacteria. CTof the abdomen pelvis with IV contrast was obtained. This is concerning for fluid collection and free air particularly low in the pelvis associated with acute diverticulitis. Patient has received pain and nausea medication as well as Zosyn and IV fluids. I spoke with Dr. Franklin from general surgery who is come to the emergency department to evaluate the patient. He feels that given the location of the fluid collection this would be best handled at a surgical center that has colorectal surgery. Patient was accepted to [facility] in [place]. She is from [place]. History & Record Review Discussion w/independent historian: Patient and Significant other Additional record(s) reviewed:: Prior outpatient record and Prior labs Lab Data Attestation: I reviewed the patient's lab results. Labs: Laboratory Results - last 24 hr 03/16/25 03:45 WBC 15.7 H RBC 4.50 Hgb 14.3 Hct 42.3 MCV 94.0 MCH 31.8 MCHC 33.8 RDW Std Deviation 57.5 H RDW Coeff of Laura 16.8 H Plt Count 424 MPV 9.0 Immature Gran % (Auto) 0.600 Neut % (Auto) 89.3 H Lymph % (Auto) 4.7 L Gallia % (Auto) 5.0 Eos % (Auto) 0.1 Baso % (Auto) 0.3 Absolute Neuts (auto) 14.0 H Absolute Lymphs (auto) 0.74 L Nucleated RBC % 0 Sodium 133 Potassium 4.0 Chloride 98 Carbon Dioxide 20.9 L Anion Gap 15 BUN 13 Creatinine 0.70 Estim Creat Clear Calc 92.42 Est GFR (MDRD) Non-Af 98 BUN/Creatinine Ratio 18.3 Glucose 137 H Calcium 9.4 Total Bilirubin 0.99 Direct Bilirubin 0.49 H AST 19 ALT 14 Alkaline Phosphatase 93 Total Protein 8.0 Albumin 3.6 Globulin 4.4 H Lipase 13 Urine Color Yellow Urine Clarity Sl. Cloudy Urine pH 5.0 Ur Specific [place] 1.025 Urine Protein 100 H Urine Glucose (UA) Normal Urine Ketones 50 H Urine Occult Blood 25 H Urine Nitrite Negative Urine Bilirubin 1 H Urine Urobilinogen 4 H Ur Leukocyte Esterase 25 H Urine RBC 0 SEEN Urine WBC 0-5 SEEN Ur Squamous Epith Cells 5-10 SEEN Urine Bacteria 2+ Urine Mucus 3+ Radiography Diagnostic Testing: Clinical Impression(s) from Imaging Studies Abdomen/Pelvis CT 03/16/25 03:52 IMPRESSION: Findings are consistent with acute sigmoid diverticulitis with kay perforationand pelvic phlegmon and pneumoperitoneum as described above. Findings discussed verbally by myself with Dr. Abrams at 5:20 a.m. 03/16/2025 Reading Location: [facility] Management Discussion w/another healthcare provider: [employer] (Dr Franklin (General Surgery) / [facility] / [place] [facility]) and Radiologist Discharge Plan Triage Chief Complaint: Abd Pain ED Provider: Jeff Abrams Dx/Rx/DC Orders Clinical Impression: Perforation of sigmoid colon due to diverticulitis, Abdominal pain Prescriptions: No Action loratadine 10 mg tablet 10 mg PO DAILY PRN (Reason: allergy symptoms) naproxen sodium [Aleve] 220 mg tablet 220 mg PO BID PRN (Reason: pain) Primary Care Provider: Rosibel Godfrey Referrals: Rosibel Godfrey MD [Primary Care Provider] - Print Language: Citizen Of [place] What to do if you have Problems For any increased pain, shortness of breath, bleeding, nausea or vomiting, chestpain, or any unexpected problems, contact your Primary Care Provider. Call [facility] ([phone]) or report to the closest Emergency Room. Call 911 if necessary. 03/16/25817 <Electronically signed by Jeff Abrams DO> Cosigner Signature (if applicable): CC: Dr. Rosibel Godfrey MD ~ Signed [facility] Work Phone: Evaluation noteNo assessment information available [facility] Work Phone: Evaluation note* Diagnosis History of colonic polyps- Primary Personal history of colonic polyps documented in this encounter [facility] note* Diagnosis History of colonic polyps- Primary Personal history of colonic polyps documented in this encounter [facility] note* Diagnosis Diverticulitis of colon with perforation- Primary Diverticulitis of colon (without mention of hemorrhage) Diverticulitis of colon with perforation Diverticulitis of colon (without mention of hemorrhage) Intra-abdominal abscess (HCC) Peritoneal abscess Leukocytosis, unspecified type Encounter for surgical aftercare following surgery of digestive system [facility] Diagnosis Diverticulitis of colon with perforation- Primary Diverticulitis of colon (without mention of hemorrhage) Diverticulitis of colon with perforation Diverticulitis of colon (without mention of hemorrhage) Intra-abdominal abscess (HCC) Peritoneal abscess Leukocytosis, unspecified type Encounter for surgical aftercare following surgery of digestive system Ischemic cardiomyopathy- Primary Other specified forms of chronic ischemic heart disease documented in this encounter [facility] note* Diagnosis Diverticulitis of colon with perforation- Primary Diverticulitis of colon (without mention of hemorrhage) Diverticulitis of colon with perforation Diverticulitis of colon (without mention of hemorrhage) Intra-abdominal abscess (HCC) Peritoneal abscess Leukocytosis, unspecified type Encounter for surgical aftercare following surgery of digestive system Diverticulitis of colon with perforation- Primary Diverticulitis of colon (without mention of hemorrhage) [facility]* Diagnosis Diverticulitis of colon with perforation- Primary Diverticulitis of colon (without mention of hemorrhage) Diverticulitis of colon with perforation Diverticulitis of colon (without mention of hemorrhage) Intra-abdominal abscess (HCC) Peritoneal abscess Leukocytosis, unspecified type Encounter for surgical aftercare following surgery of digestive system Diverticulitis of colon with perforation- Primary Diverticulitis of colon (without mention of hemorrhage) [facility]* Diagnosis Diverticulitis of colon with perforation- Primary Diverticulitis of colon (without mention of hemorrhage) Diverticulitis of colon with perforation Diverticulitis of colon (without mention of hemorrhage) Intra-abdominal abscess (HCC) Peritoneal abscess Leukocytosis, unspecified type Encounter for surgical aftercare following surgery of digestive system Abnormal stress test- Primary Other nonspecific abnormal cardiovascular system function study [facility]* Diagnosis Diverticulitis of colon with perforation- Primary Diverticulitis of colon (without mention of hemorrhage) Diverticulitis of colon with perforation Diverticulitis of colon (without mention of hemorrhage) Intra-abdominal abscess (HCC) Peritoneal abscess Leukocytosis, unspecified type Encounter for surgical aftercare following surgery of digestive system Nonischemic cardiomyopathy (HCC)- Primary Other primary cardiomyopathies Coronary artery calcification Tachycardia Unspecified tachycardia Preoperative cardiovascular examination Pre-operative cardiovascular examination [facility] Diverticulitis of colon with perforation- Primary Diverticulitis of colon (without mention of hemorrhage) Diverticulitis of colon with perforation Diverticulitis of colon (without mention of hemorrhage) Intra-abdominal abscess (HCC) Peritoneal abscess Leukocytosis, unspecified type Encounter for surgical aftercare following surgery of digestive system Diverticulitis of colon with perforation- Primary Diverticulitis of colon (without mention of hemorrhage) [facility] Diagnosis Diverticulitis of colon with perforation- Primary Diverticulitis of colon (without mention of hemorrhage) Diverticulitis of colon with perforation Diverticulitis of colon (without mention of hemorrhage) Intra-abdominal abscess (HCC) Peritoneal abscess Leukocytosis, unspecified type Encounter for surgical aftercare following surgery of digestive system Diverticulitis of colon with perforation- Primary Diverticulitis of colon (without mention of hemorrhage) [facility] Diagnosis Diverticulitis of colon with perforation- Primary Diverticulitis of colon (without mention of hemorrhage) Diverticulitis of colon with perforation Diverticulitis of colon (without mention of hemorrhage) Intra-abdominal abscess (HCC) Peritoneal abscess Leukocytosis, unspecified type Encounter for surgical aftercare following surgery of digestive system Diverticulitis of colon with perforation- Primary Diverticulitis of colon (without mention of hemorrhage) documented in this encounter [facility] for referral (narrative)* Outpatient Procedure (Routine) - Authorized Specialty Diagnoses / Procedures Referred By Contac t Referred To Contact [facility] Diagnoses History of colonic polyps Procedures COLONOSCOPY SCREENING COLONOSCOPY FLX DX W/COLLJ SPEC WHEN Milli Santos MD [address] [place] [address] [facility] [address] [place] [id number] Referral ID Status Reason Start Date Expiration Date Visits Requested Visits Authorized [id number] Authorized Patient Cleared INN/SMCP Payor Auth Obtained OON/Self Pay Override 01/15/2024 10/21/[address] [facility] for referral (narrative)* Outpatient Procedure (Routine) - Waiting for Response Specialty Diagnoses / Procedures Referred By Contcristian castro Referred To Contact [facility] Diagnoses History of colonic polyps Procedures COLONOSCOPY SCREENING COLONOSCOPY FLX DX W/COLLJ SPEC WHEN PFRMD Milli Sung MD [address] [place] [address] [facility] [address] [place] [address] Referral ID Status Reason Start Date Expiration Date Visits Requested Visits Authorized [id number] Waiting for Response Auto-Generat ed Referral 01/31/2024 01/30/[address] [facility] for referral (narrative)No reason for referral [facility] Work Phone: Summary Purpose Family History No Family History Records Found Relationship Condition Age at Onset Recorded Date/T jeremias grandmother Malignant neoplasm of breast Unknown brother Myocardial infarction Unknown father Myocardial infarction Unknown Hypertension Unknown Cardiac disease Unknown brother Malignant neoplasm Unknown mother Cerebrovascular accident (CVA) Unknown Advance Directives No Advanced Directives Records Found Advance Directive Response Recorded Date/ Time Do you have a Healthcare Power of Nurse Clinical? Yes March 16, 2025 3:44am Date Activated Date Inactivated Comments 03/16/2025 2:22 PM 04/01/2025 7:18 PM Date Activated Date Inactivated Comments 03/16/2025 2:22 PM 04/01/2025 7:18 PM Chief Complaint and Reason for Visit Chief Complaint EST NEW PT - PPW SEN T SCREENING Patient needs bigger facility Chief Complaint Admit Date YEARLY December 22, 2024 9:53 am Reason for Visit Admit Date Left lower quadrant abdominal pain December 22, 2024 9:53am Immunization declined December 22, 2024 9: 53am SMILEY (dyspnea on exertion) December 22 9:53am Lipoma December 22, 2024 9:53 am Chest pain in adult December 22, 2024 9:53 am Screening for breast cancer December 22 9:53am Chief Complaint Admit Date YEARLY December 22, 2024 9:53 am CHEST HEAVINESS, SMILEY January 26, 2025 6:4 7am CHEST HEAVINESS, SMILEY January 26, 2025 4:2 6pm Chief Complaint Admit Date YEARLY December 22, 2024 9:53 am CHEST HEAVINESS, SMILEY January 26, 2025 6:4 7am CHEST HEAVINESS, SMILEY January 26, 2025 4:2 6pm abd pain March 16, 2025 3:30a m abd pain March 16, 2025 7:16a m Chief Complaint Admit Date YEARLY December 22, 2024 9:53 am CHEST HEAVINESS, SMILEY January 26, 2025 6:4 7am CHEST HEAVINESS, SMILEY January 26, 2025 4:2 6pm abd pain March 16, 2025 3:30a m abd pain March 16, 2025 7:16a m COLOSTOMY BAG-PERFORATED COLON March 2:59pm Additional Source Comments INFORMATION SOURCE (unrecogn ized section and content) DATE CREATED AUTHOR 01/25/2019 [facility] ([place]) DATE CREATED AUTHOR AUTHOR'S ORGANIZ ATION 06/11/2020 [facility] DATE CREATED AUTHOR AUTHOR'S ORGANIZ ATION 02/24/2022 [facility] DATE CREATED AUTHOR AUTHOR'S ORGANIZ ATION 02/01/2024 [facility] DATE CREATED AUTHOR AUTHOR'S ORGANIZ ATION 08/28/2024 [facility] DATE CREATED AUTHOR AUTHOR'S ORGANIZ ATION 04/30/2025 [facility] DATE CREATED AUTHOR AUTHOR'S ORGANIZ ATION 05/16/2025 [facility] DATE CREATED AUTHOR AUTHOR'S ORGANIZ ATION 06/10/2025 [facility] DATE CREATED AUTHOR AUTHOR'S ORGANIZ ATION 06/10/2025 [facility] Care Teams (unrecognized sec tion and content) Team Status: Active Member Role Status Dates Dr. Rosibel Godfrey MD Primary Care Provider Active Team Status: Inactive Member Role Status Dates Dr. Rosibel Godfrey MD Attending Provider Active Team Status: Inactive Member Role Status Dates Dr. Rosibel Godfrey MD Primary Care Provider, Referri ng Provider Active Surgery Nurse Attending Provider Active Team Status: Inactive Member Role Status Dates Dr. Rosibel Godfrey MD Primary Care Pro vider, Attending Provider, Referring Provider Active Team Status: Active Member Role Status Dates Dr. Rosibel Godfrey MD Primary Care Provider, Attendi ng Provider Active Team Status: Inactive Member Role Status Dates Dr. Rosibel Godfrey MD Primary Care Provider, Attendi ng Provider Active Materials Planner/Production Planner Relationship Specialty Start Date End Date Rosibel Godfrey MD [address] [place] [address] PCP - General Internal Medicine 11/15/23 Materials Planner/Production Planner Relationship Specialty Start Date End Date Rosibel Godfrey MD [address] [place] [address] PCP - General Internal Medicine 11/15/23 Materials Planner/Production Planner Relationship Specialty Start Date End Date Rosibel Godfrey MD [address] [place] [address] PCP - General Internal Medicine 11/15/23 Materials Planner/Production Planner Relationship Specialty Start Date End Date Rosibel Godfrey MD [address] [place] [address] PCP - General Internal Medicine 11/15/23 Team Status: Inactive Member Role Status Dates Dr. Rosibel Godfrey MD Primary Care Provider Active Start: December 22, 2024 End: December 22, 2024 Dr. Rosibel Godfrey MD Attending Provider Active Start: December 22, 2024 End: December 22, 2024 Dr. Rosibel Godfrey MD Referring Provider Active Start: December 22, 2024 End: December 22, 2024 Team Status: Inactive Member Role Status Dates Dr. Rosibel Godfrey MD Primary Care Provider Active Start: December 22, 2024 End: December 22, 2024 Dr. Rosibel Godfrey MD Attending Provider Active Start: December 22, 2024 End: December 22, 2024 Team Status: Inactive Member Role Status Dates Dr. Rosibel Godfrey MD Primary Care Provider Active Start: January 26, 2025 End: January 26, 2025 Dr. Rosibel Godfrey MD Attending Provider Active Start: January 26, 2025 End: January 26, 2025 Dr. Rosibel Godfrey MD Referring Provider Active Start: January 26, 2025 End: January 26, 2025 Team Status: Active Member Role Status Dates Dr. Rosibel Godfrey MD Primary Care Provider Active Start: January 26, 2025 Dr. Rosibel Godfrey MD Referring Provider Active Start: January 26, 2025 Dr. Rosibel Godfrey MD Other Provider Active St art: January 26, 2025 Dr. Kumar Asif MD Attending Provider Active S tart: January 26, 2025 Team Status: Inactive Member Role Status Dates Dr. Rosibel Godfrey MD Primary Care Provider Active Start: March 16, 2025 End: March 16, 2025 Dr. Jeff Abrams DO Emergency Provider Active Start: March 16, 2025 End: March 16, 2025 Team Status: Active Member Role Status Dates Dr. Rosibel Godfrey MD Primary Care Provider Active Start: March 16, 2025 Dr. Jeff Abrams DO Emergency Provider Active Start: March 16, 2025 Dr. Pedro Franklin MD Attending Provider Active Start: March 16, 2025 Materials Planner/Production Planner Relationship Specialty Start Date End Date No, Physician [facility] PCP - General 03/16/25 Materials Planner/Production Planner Relationship Specialty Start Date End Date No, Physician [facility] PCP - General 03/16/25 Materials Planner/Production Planner Relationship Specialty Start Date End Date No, Physician [facility] PCP - General 03/16/25 Materials Planner/Production Planner Relationship Specialty Start Date End Date No, Physician [facility] PCP - General 03/16/25 Team Status: Inactive Member Role Status Dates Dr. Rosibel Godfrey MD Primary Care Provider Active Start: March 16, 2025 End: March 16, 2025 Dr. Jeff Abrams DO Attending Provider Active Start: March 16, 2025 End: March 16, 2025 Dr. Jeff Abrams DO Emergency Provider Active Start: March 16, 2025 End: March 16, 2025 Team Status: Active Member Role Status Dates Dr. Rosibel Godfrey MD Primary Care Provider Active Start: March 16, 2025 Dr. Jeff Abrams DO Referring Provider Active Start: March 16, 2025 Dr. Jeff Abrams DO Emergency Provider Active Start: March 16, 2025 Dr. Pedro Franklin MD Attending Provider Active Start: March 16, 2025 Team Status: Inactive Member Role Status Dates Dr. Rosibel Godfrey MD Primary Care Provider Active Start: April 16, 2025 End: April 16, 2025 Dr. Rosibel Godfrey MD Referring Provider Active Start: April 16, 2025 End: April 16, 2025 Dr. Torrey Rich DO Attending Provider Active Start: April 16, 2025 End: April 16, 2025 Materials Planner/Production Planner Relationship Specialty Start Date End Date No, Physician [facility] PCP - General 03/16/25 Materials Planner/Production Planner Relationship Specialty Start Date End Date System, Provider Not In PCP - General 05/08/25 Materials Planner/Production Planner Relationship Specialty Start Date End Date No, Physician [facility] PCP - General 03/16/25 05/07/25 System, Provider Not In PCP - General 05/08/25 Materials Planner/Production Planner Relationship Specialty Start Date End Date No, Physician [facility] PCP - General 03/16/25 05/07/25 System, Provider Not In PCP - General 05/08/25 Materials Planner/Production Planner Relationship Specialty Start Date End Date System, Provider Not In PCP - General 05/08/25 Materials Planner/Production Planner Relationship Specialty Start Date End Date Rosibel Godfrey MD [address] [place] [address] PCP - General Internal Medicine 05/20/25 Goals (unrecognized section and content) Goals may be documented in a n alternate sectionGoals may be documented in an alternate sectionGoals may be documented in an alternate sectionGoals may be documented in an alternate sectionGoals may be documented in an alternate sectionGoals may be documented in an alternate section Source Comments (unrecognize d section and content) In the event this informatio n is protected by the Federal Confidentiality of Alcohol and Drug Abuse Patient Records regulations: The Federal rules restrict any use of the information to criminally investigate or prosecute any alcohol or drug abuse patient.[facility] the event this information is protected by the Federal Confidentiality of Alcohol and Drug Abuse Patient Records regulations: The Federal rules restrict any use of the information to criminally investigate or prosecute any alcohol or drug abuse patient.[facility] the event this information is protected by the Federal Confidentiality of Alcohol and Drug Abuse Patient Records regulations: The Federal rules restrict any use of the information to criminally investigate or prosecute any alcohol or drug abuse patient.[facility] the event this information is protected by the Federal Confidentiality of Alcohol and Drug Abuse Patient Records regulations: The Federal rules restrict any use of the information to criminally investigate or prosecute any alcohol or drug abuse patient.[facility] Reason for Visit (unrecogniz ed section and content) Reason Comments Consult Reason Comments Consult Screening for colon cancer Specialty Diagnoses / Procedures Referred By Kedar castro Referred To Contact General Surgery / GENERAL SURGERY Diagnoses Encounter for screening for malignant neoplasm of colon COLONOSCOPY CONSULT Procedures OFFICE/OUTPATIENT NEW MODERATE MDM 45 MINUTES NEW DDI PATIENT Milli Sung MD [address] [place] [address] Milli Sung MD [address] [place] [address] Referral ID Status Reason Start Date Expiration Date Visits Requested Visits Authorized [id number] Waiting for Response Financial Clearance Required - OON Payor OON Notification Letter Clearance Not Met -Financial Clearance Bypassed 4 04/13/2024 1 0 Reason Comments 01/31/2024 COLON LODI Reason Comments Abnormal Results Abdominal Pain Specialty Diagnoses / Procedures Referred By Kedar castro Referred To Contact Diagnoses Intra-abdominal abscess (HCC) Diverticulitis of colon with perforation Leukocytosis, unspecified type Perforated Diverticulum w/ Pelvic Phlegmon Referral ID Status Reason Start Date Expiration Date Visits Re quested Visits Authorized [id number] 1 1 Reason Comments Post-op Drain removal? Says incision is a mess Reason Comments Post-op Thinks she is doing better Reason Comments Follow-up [facility] elevated trops a nd tachy Reason Comments Follow-up Test results and nex t steps - completing cscope 06/11 Scheduled Active and Recently Administ ered Medications (unrecognized section and content) Medication Order 03/30/2025 03/31/2025 04/01/2025 amoxicillin-clavulanate (AUGMENTIN) 875-125 mg per tablet 1 tablet 1 tablet, Oral, Every 12 hours scheduled, First dose on Sun04/01/25 at 1000, Indication: Other (specify), Indication: intra abd 1233 (Given - Provider: Jaylin Chu, RN) aspirin EC tablet 81 mg 81 mg, Oral, Daily, First dose on Sun03/25/25 at 1330, DO NOT CRUSH OR CHEW. 1052 (Given - Provider: Marquita Yañez RN) 09 (Given - Provider: Jaylin Chu RN) 0849 (Given - Provider: Jaylin Chu RN) atorvastatin (LIPITOR) tablet 40 mg 40 mg, Oral, Nightly, First dose on Sun03/25/25 at 2100 2100 (Not Given - Provider: Carla Chilel RN - Reason: Patient/family refused) 2109 (Not Given - Provider: Marquita Yañez RN - Reason: Patient/family refused) cyclobenzaprine (FLEXERIL) tablet 10 mg 10 mg, Oral, Every 8 hours scheduled, First dose on Sun03/28/25 at 1400 0505 (Given - Provider: Pearl De La Cruz RN)1320 (Given - Provider: Carla Chilel RN)2102 (Given - Provider: Carla Chilel RN) 050 (Given - Provider: Pearl De La Cruz RN)1332 (Given - Provider: Iris Waddell RN)2110 (Given - Provider: Marquita Yañez RN) 050 (Given - Provider: Marquita Yañez RN)1400 (Due) enoxaparin (LOVENOX) syringe 40 mg 40 mg, Subcutaneous, Daily, First dose (after last modification) on Sun03/17/25 at 0900, Administer in abdomen unless otherwise directed by prescriber. Notify physician if patient refuses., Prophylaxis Indication: VTE Prophylaxis 1052 (Given - Provider: Marquita Yañez RN) 09 (Given - Provider: Jaylin Chu RN) 0849 (Given - Provider: Jaylin Chu RN) metoprolol tartrate (LOPRESSOR) tablet 50 mg 50 mg, Oral, 2 times daily, First dose on Sun03/25/25 at 2000, Hold for SBP <90, HR <60 1052 (Given - Provider: Marquita Yañez RN)2099 (Not Given - Provider: Carla Chilel RN - Reason: Other - Comment: b/p 99/62) 09 (Given - Provider: Jaylin Chu RN)2110 (Given - Provider: Marquita Yañez RN) 0849 (Given - Provider: Jaylin Chu RN) piperacillin-tazobactam (ZOSYN) IVPB 3.375 g (premix) (COMPLETED) 3.375 g, Intravenous, at 12.5 mL/hr, Every 8 hours, First dose on Sun03/23/25 at 1300, For 23 doses, VESICANT, Indication: Intra-abdominal Infection 0507 (New Bag - Provider: Pearl De La Cruz RN)1450 (New Bag - Provider: Carla Chilel, PARVEEN)210 (New Bag - Provider: Carla Chilel, PARVEEN) polyethylene glycol (MIRALAX) powder 17 g 17 g, Oral, Daily, First dose on 03/29/25 at 0900 1053 (Given - Provider: Marquita Yañez RN) 0906 (Given - Provider: Jaylin Chu RN) 0849 (Given - Provider: Jaylin Chu RN) senna-docusate (SENNA-S) 8.6-50 mg per tablet 1 tablet 1 tablet, Oral, 2 times daily, First dose on Sun03/29/25 at 0900, Hold for loose stools Do Not Crush or Chew if administering orally due to bitter taste. May be crushed if given via tube. 1052 (Given - Provider: Marquita Yañez RN)2103 (Given - Provider: Carla Chilel RN) 0906 (Given - Provider: Jaylin Chu RN)2111 (Given - Provider: Marquita Yañez RN) 0849 (Given - Provider: Jaylin Chu RN) sodium chloride (PF) (NS) flush 10 mL 10 mL, Intracatheter, Every 8 hours scheduled, First dose on Sun03/23/25 at 1445, Flush PICC lumens when not in use. 0600 (Canceled Entry - Provider: Pearl De La Cruz RN)1400 (Canceled Entry - Provider: Carla Chilel RN)2200 (Canceled Entry - Provider: Carla Chilel RN) 0600 (Canceled Entry - Provider: Pearl De La Cruz RN)1333 (Given - Provider: Iris Waddell RN)2200 (Canceled Entry - Provider: Marquita Yañez RN) 0600 (Canceled Entry - Provider: Marquita Yañez RN)1400 (Due) PRN Medication Order 03/30/2025 03/31/2025 04/01/2025 acetaminophen (TYLENOL) tablet 650 mg 650 mg, Oral, Every 6 hours PRN, mild pain, fever 100.4 F or greater, headaches, Starting on Sun03/24/25 at 0828 2107 (Given - Provider: Carla Chilel, PARVEEN) 1655 (Given - Provider: Jaylin Chu, RN) 0849 (Given - Provider: Jaylin Chu, PARVEEN) alteplase (CATH SANDRA) injection 2 mg 2 mg, Other, As needed, occluded PICC, Starting on Sun03/23/25 at 1348, Use for occlusion or absence of blood return, unless allergy or infected line. Assess catheter function 30 minutes after instillation. Repeat 2 mg x 1 dose if no blood return obtained after 120 minutes of dwell time. If medication has not yet been reconstituted RECONSTITUTE ALTEPLASE (CATHFLO) INJ WITH 2.2 ML OF STERILE WATER FOR INJ FOR CATHETER CLEARANCE ONLY benzocaine (HURRICAINE) 20 % spray 2 spray 2 spray, Mouth/Throat, 2 times daily PRN, mild pain, Starting on 03/21/25 at 0329 iopamidoL (ISOVUE-370) 370 mg iodine /mL (76 %) injection 75 mL (COMPLETED) 75 mL, Intravenous, Once in imaging, contrast, Starting on Sun03/30/25 at 0731, For 1 dose 1013 (Contrast Administered - Provider: Donovan Schilling, TECHNOLOGIST) iopamidol (ISOVUE-370) 76 % oral solution 6 mL (COMPLETED) 6 mL, Oral, Every 30 min PRN, contrast, Starting on Sun03/30/25 at 0736, For 3 doses, Dilute each 6mls with 300mls cold water prior to oral administration 0803 (Contrast Administered - Provider: Marquita aYñez RN)0830 (Contrast Administered - Provider: Marquita Yañez RN)0904 (Contrast Administered - Provider: Marquita Yañez RN) metoprolol (LOPRESSOR) injection 10 mg 10 mg, Intravenous, Every 10 min PRN, 1 hour after oral dose for HR greater than 60 beats per minute AND SBP greater than 90 mmHg., Starting on Sun03/25/25 at 0920, For 3 doses, >>>>>TO BE RELEASED AND GIVEN IN PROCEDURE AREA ONLY<<<<< Push over 3 minutes; may repeat dose 2 times. Notify Radiologist/Proctologist if HR remains greater than 60 beats per minute with maximum metoprolol (Lopressor) dose. 1047 (Canceled Entry - Provider: Marquita Yañez RN) naloxone (NARCAN) injection 0.1 mg(Linked Group 1) 0.1 mg, Intravenous, As needed, opioid reversal, For respiratory rate less than or equal to 8 per minute., Starting on Sun03/16/25 at 1330, Mix nalOXone (NARCAN) 0.4 mg (1mL) with 9 mL of Normal Saline to total 10 mL. Administer 0.1 mg (2.5mL) IV Push every 2 minutes until respiratory rate is 10 or greater. naloxone (NARCAN) injection 0.4 mg(Linked Group 1) 0.4 mg, Intravenous, As needed, opioid reversal, patient is pulseless, breathless, and unresponsive, Starting on Sun03/16/25 at 1330, Call a code first, then administer naloxone dose undiluted IV Push over 30 seconds. nitroGLYCERIN (NITROSTAT) SL tablet 0.4 mg 0.4 mg, Sublingual, Every 5 min PRN, chest pain, Starting on Sun03/25/25 at 0920, For 2 doses, >>>>>TO BE RELEASED AND GIVEN IN PROCEDURE AREA ONLY<<<<< Give both 0.4 mg at the same time of arrival (when starting exam) DO NOT GIVE IF patient is currently taking sildenafil citrate (VIAGRA, REVATIO), tadalafil (CIALIS), or vardenafil (LEVITRA). DO NOT CRUSH OR CHEW. ondansetron (ZOFRAN) injection 4 mg 4 mg, Intravenous, Every 6 hours PRN, nausea, vomiting, Starting on Sun03/16/25 at 1329 oxyCODONE (ROXICODONE) 10 mg/0.5 mL concentrated solution 5-10 mg 5-10 mg, Sublingual, Every 4 hours PRN, moderate to severe pain, Starting on Sun03/18/25 at 2213 0203 (Given - Provider: Pearl De La Cruz RN)1033 (Given - Provider: Dayan Tenorio RN)1440 (Given - Provider: Carla Chilel RN)1942 (Given - Provider: Carla Chilel RN) 0003 (Given - Provider: Pearl De La Cruz, PARVEEN)0504 (Given - Provider: Pearl De La Cruz RN)0911 (Given - Provider: Jaylin Chu RN)1332 (Given - Provider: Iris Waddell RN)211 (Given - Provider: Marquita Yañez, PARVEEN) 050 (Given - Provider: Marquita Yañez RN) prochlorperazine (COMPAZINE) injection 5 mg 5 mg, Intravenous, Every 6 hours PRN, nausea, vomiting, Starting on Sun03/18/25 at 1402, If IV, give slow IV push at a rate not exceeding 5 mg/minute and remain lying down for 30 minutes to reduce risk of hypotension. If IM, inject deep into outer buttocks quadrant. sodium chloride (PF) (NS) 0.9 % contrast line flush 10 mL (COMPLETED)(Linked Group 2) 10 mL, Intravenous, Once in imaging, contrast, Per hand trucker (Radiology) for line patency check prior to contrast administration, Starting on [place] 03/26/25 at 0034, For 1 dose 1013 (Given - Provider: Donovan Schilling TECHNRONI) sodium chloride (PF) (NS) 0.9 % contrast line flush 10 mL(Linked Group 3) 10 mL, Intravenous, Once in imaging, contrast, Per hand trucker (Radiology) for line patency check prior to contrast administration, Starting on Sun03/30/25 at 0731, For 1 dose sodium chloride (PF) (NS) 0.9 % contrast line flush 80 mL(Linked Group 2) 80 mL, Intravenous, Once in imaging, contrast, Per hand trucker (Radiology), Starting on [place] 03/26/25 at 0034, For 1 dose, 30 mL BEFORE contrast administration 50 mL AFTER contrast administration sodium chloride (PF) (NS) 0.9 % contrast line flush 80 mL (COMPLETED)(Linked Group 3) 80 mL, Intravenous, Once in imaging, contrast, Per hand trucker (Radiology), Starting on Sun03/30/25 at 0731, For 1 dose, 30 mL BEFORE contrast administration 50 mL AFTER contrast administration 1013 (Given - Provider: Donovan Schilling TECHNRONI) sodium chloride (PF) (NS) flush 10-20 mL 10-20 mL, Intracatheter, As needed, line care, Flush PICC with 10ml before and after each use, and with 20ml after blood draws, transfusions, and TPN., Starting on Sun03/23/25 at 1348 sodium chloride (PF) (NS) flush 5 mL(Linked Group 4) 5 mL, Intravenous, As needed, line care, Starting on Sun03/16/25 at 1050 sodium chloride 0.9% (NS)(Linked Group 4) 0-150 mL/hr, Intravenous, As needed, To flush line after IV infusions when no maintenance IV ordered or a compatibility issue. Infuse 20ml at the same rate as the secondary infusion, Starting on Sun03/16/25 at 1050, Run as Primary IV. NOT intended for KVO. 1449 (New Bag - Provider: Carla Chilel RN) Linked Groups Order Group 1: naloxone (NARCAN) injection 0.1 mgJump to med 0.1 mg, Intravenous, As needed, opioid reversal, For respiratory rate less than or equal to 8 per minute., Starting on Sun03/16/25 at 1330, Mix nalOXone (NARCAN) 0.4 mg (1mL) with 9 mL of Normal Saline to total 10 mL. Administer 0.1 mg (2.5mL) IV Push every 2 minutes until respiratory rate is 10 or greater. And Notify physician (CANCELED) STAT, Until discontinued, Starting on Sun03/16/25 at 1335, Until Specified, Respiratory rate less than: 8, For respiratory rate less than or equal to 8, notify physician and/or appropriate staff for additional orders. And naloxone (NARCAN) injection 0.4 mgJump to med 0.4 mg, Intravenous, As needed, opioid reversal, patient is pulseless, breathless, and unresponsive, Starting on Sun03/16/25 at 1330, Call a code first, then administer naloxone dose undiluted IV Push over 30 seconds. Group 2: sodium chloride (PF) (NS) 0.9 % contrast line flush 10 mL (COMPLETED)Jump to med 10 mL, Intravenous, Once in imaging, contrast, Per hand trucker (Radiology) for line patency check prior to contrast administration, Starting on [place] 03/26/25 at 0034, For 1 dose And sodium chloride (PF) (NS) 0.9 % contrast line flush 80 mLJump to med 80 mL, Intravenous, Once in imaging, contrast, Per hand trucker (Radiology), Starting on Sun03/26/25 at 0034, For 1 dose, 30 mL BEFORE contrast administration 50 mL AFTER contrast administration Group 3: sodium chloride (PF) (NS) 0.9 % contrast line flush 10 mLJump to med 10 mL, Intravenous, Once in imaging, contrast, Per hand trucker (Radiology) for line patency check prior to contrast administration, Starting on Sun03/30/25 at 0731, For 1 dose And sodium chloride (PF) (NS) 0.9 % contrast line flush 80 mL (COMPLETED)Jump to med 80 mL, Intravenous, Once in imaging, contrast, Per hand trucker (Radiology), Starting on Sun03/30/25 at 0731, For 1 dose, 30 mL BEFORE contrast administration 50 mL AFTER contrast administration Group 4: Insert peripheral IV (COMPLETED) LENORE, Once, On Sun03/16/25 at 1050, For 1 occurrence And Saline lock IV (CANCELED) LENORE, Once, On Sun03/16/25 at 1050, For 1 occurrence And sodium chloride (PF) (NS) flush 5 mLJump to med 5 mL, Intravenous, As needed, line care, Starting on Sun03/16/25 at 1050 And sodium chloride 0.9% (NS)Jump to med 0-150 mL/hr, Intravenous, As needed, To flush line after IV infusions when no maintenance IV ordered or a compatibility issue. Infuse 20ml at the same rate as the secondary infusion, Starting on Sun03/16/25 at 1050, Run as Primary IV. NOT intended for KVO. FOR RECORDS PERTAINING TO PATIENTS WHO ARE [...] BE BASED ON THE PRIMARY CLINICAL RECORDS. [facility]. provides no warranty or guarantee of the accuracy or completeness of information in this document.
[2025-06-11] MEDS: Lactated Ringers 1,000 ML 15 ML IV (06:33)
--- NOTE | 2025-06-11 06:38 | PCM.HP.STD ---
HPI - General General Date of Admission: 06/11/25 Date of Service: 06/11/25 Chief Complaint: Surveillance colonoscopy HPI Narrative JOSE LIND, is a 59 F who presents for a surveillance colonoscopy. *[facility] established 05.20.24 pt reports that in late February 2024 she had a routine colonoscopy done in [place] and pt stated that they could not complete the scope due to a kink in colon. Pt had another colonoscopy done in [place] where they had the same problem and could not get the scope through. In between the two colonoscopies pt did a cologuard test that did not come back positive, but showed antibodies. Pt reports that she is feeling well overall and denies GI symptoms of concern at this time. Colonoscopy 06.16.24 Severe diverticulosis in the recto-sigmoid colon, in the sigmoid colon and in the descending colon. There was narrowing of the colon in association with the diverticular opening. There was evidence of diverticular spasm. Tish-diverticular erythema was seen. There was evidence of an impacted diverticulum. Purulent discharge was seen in association with the diverticular opening, suspicious of diverticulitis. There was no evidence of diverticular bleeding. Two 1 to 2 mm polyps at the hepatic flexure, removed with a cold snare. Resected and retrieved. Localized moderate inflammation was found in the transverse colon secondary to ischemic colitis. Biopsied. [facility] ED 03.16.25 ongoing abd pain - transferred to [place] for perforated colon due to diverticulitis. abd/pelvis CT 03.16.25 Findings are consistent with acute sigmoid diverticulitis with kay perforation and pelvic phlegmon and pneumoperitoneum as described above. Surgery with [place] - diverting loop colostomy OV 04.16.25 pt reports that she is feeling well and denies GI symptoms of concern at this time. Pt reports she needs a colonoscopy to assess for reversal of the ostomy. Pt also has questions regarding her ostomy. [facility] Medical History Low iron Dietary restriction Cardiology follow-up encounter Hypertension History of irregular heartbeat Colitis Wears glasses Post-menopausal Alcohol use Easy bruising Former smoker Shortness of breath on exertion History of stress test Menorrhagia History of colon polyps Home Medications ?Medication ?Instructions ?Recorded ?Last Taken ?Type loratadine 10 mg tablet 10 mg PO DAILY PRN allergy symptoms 08/23/23 Unknown History naproxen sodium 220 mg tablet 220 mg PO BID PRN pain 08/23/23 Unknown History (Aleve) aspirin 81 mg tablet 81 mg PO QDAY 04/16/25 06/03/25 History metoprolol tartrate 50 mg tablet 50 mg PO BID 04/16/25 06/04/25 History polyethylene glycol 3350 17 17 g PO QDAY 04/16/25 06/10/25 History gram/dose oral powder (Miralax) sennosides 8.6 mg capsule (senna) 8.6 mg PO BID 04/16/25 06/10/25 History Allergy/AdvReac Type Severity Reaction Status Date / Time No Known Allergies Allergy Verified 06/11/25 06:26 Family History Grandmother Breast cancer Brother Myocardial infarction Father Myocardial infarction Hypertension Heart disease Brother Cancer lymphoma Mother CVA (cerebral vascular accident) Surgical History History of colostomy History of colectomy Hx of colonoscopy History of hysteroscopy Status post breast reduction Social History household members: spouse current occupational status: employed 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 - [employer] Smoking Status: Former smoker quit date: 10/22/20 pack-years: 20 Electronic Cigarette Use: not used alcohol intake: current alcohol intake frequency: holidays/special occasions only substance use type: does not use do you feel safe at home: Yes ROS Constitutional Constitutional: Denies fatigue, fever(s), poor appetite, weight gain or weight loss Gastrointestinal Gastrointestinal: Denies belching, bloating, change in bowel habits, change in stool character, chewing difficulty, coffee ground emesis, constipation, cramping, diarrhea, dyspepsia, dysphagia, early satiety, excessive flatus, fecal incontinence, heartburn, hematemesis, hematochezia, hemorrhoids, loose stools, melena, nausea, odynophagia, rectal bleeding, tenesmus, vomiting or weight changes Vital Signs Vital Signs Vital Signs: 06/11/25 06:28 06/11/25 06:28 Temperature 97.3 F L Temperature Source Temporal Pulse Rate 86 Respiratory Rate 14 Respiratory Pattern Normal Blood Pressure 109/81 H Blood Pressure Mean 90 Blood Pressure Source Monitor Blood Pressure Position Supine Blood Pressure Location Right Arm Pulse Ox 99 Oxygen Delivery Method Room Air Weight Weight: 174 lb 2.643 oz Body Mass Index (BMI) 25.0 Physical Exam Const alert, oriented x3, no apparent distress and healthy appearing General Appearance: cooperative GI normal to inspection, nondistended, normoactive bowel sounds, soft to palpation, non-tender and non-distended Percussion: normal to percussion Rectal Exam: deferred Assessment & Plan Assessment/Plan (1) Diverticulitis: (2) History of colon polyps: PLAN: Assessment and Plan Assessment and Plan (1) Diverticulitis: Status: Acute Plan: She is a very pleasant 59-year-old comes in for postop visit after undergoing a diverting colostomy from perforated diverticulitis and mucous fistula placement. She has not been having any problems with her stoma. She is not having any mucus from her rectum. She denies any bleeding, fevers. She spent approximately 2 and half weeks at [facility]. She comes in today to set up repeat colonoscopy regarding preop clearance for her reanastomosis. She has lost approximately 10 pounds intentionally. She only takes aspirin as prophylaxis for CAD. She has not had any other abdominal surgeries. Overall she is in very good health. We went over the natural history of perforated diverticulitis requiring temporary colostomy and the chance for reanastomosis. Patient says that even though she would want her colostomy reversed she knows there is a possibility that it may not be able to be reversed. We will perform colonoscopy through her stoma all the way to the cecum and evaluate her rectal pouch. All questions and concerns were answered.
--- NOTE | 2025-06-11 06:49 | PCM.PRE.AN2 ---
ASA Classification* ASA Classification ASA Classification: 3 (Cardiac arrhythmia) Assessment & Plan Anesthesia* Anesthesia Assessment Anesthesia Assessment: Discussed sedation and/or anesthesia options, risks, benefits, and alternatives with patient/parents/legal guardian/POA. Questions invited. The patient/parents/legal guardian/POA seems to understand and agrees to proceed with anesthesia plan. Reviewed the physical assessment, medical history, allergy history and patient home medications list prior to surgery/procedure/anesthetic and documented any changes. Performed airway and anesthesia risk assessments. Anesthesia Type Anesthesia Type: MAC History Source History Obtained from:: Patient and Chart Anesthesia Focused Assessment* Temperature: 97.3 F Pulse Rate: 86 Blood Pressure: 109/81 Respiratory Rate: 14 Pulse Ox: 99 Oxygen Delivery Method: Room Air Airway Assessment Mouth opens: >3 cm Mallampati Score: II Teeth Condition: Intact Neck Range of motion (ROM): Full ROM Labs Anesthesia Preop lab: CBC WBC 15.7 K/mm3 (4.4-11.0) H 03/16/25 03:45 03/16/25 RBC 4.50 M/mm3 (4.2-5.4) 03/16/25 03:45 03/16/25 Hgb 14.3 g/dL (12.0-15.0) 03/16/25 03:45 03/16/25 Hct 42.3 % (37-47) 03/16/25 03:45 03/16/25 Plt Count 424 K/mm3 (150-450) 03/16/25 03:45 03/16/25 CHEMISTRY Potassium 4.0 mmol/L (3.3-5.1) 03/16/25 03:45 03/16/25 Sodium 133 mmol/L (133-145) 03/16/25 03:45 03/16/25 BUN 13 mg/dL (4-19) 03/16/25 03:45 03/16/25 Creatinine 0.70 mg/dL (0.70-1.20) 03/16/25 03:45 03/16/25 Glucose 137 mg/dL (70-99) H 03/16/25 03:45 03/16/25 TSH 1.760 uIU/mL (0.300-4.200) 12/22/24 11:22 12/22/24 COAG HCG, Quant < 1 mIU/mL (<9 non-preg) 09/30/12 07:41 09/30/12 Pre-Assessment Diagnosis/Proposed Procedure Planned Operative Procedure(s): COLONOSCOPY Anesthesia History Anesthesia History - batch unit treater: Anesthesia History - batch unit treater Hx Hospitalization Yes: 03/16/25 BOWEL RUPTURE/ 06/10/25 08:37 COLOSTOMY Any Problems With Anesthesia No 06/10/25 08:37 Cholinesterase deficiency No 06/10/25 08:37 You/Your Family Experience No 06/10/25 08:37 fever (hyperthermia) with Relationship Recent Exposure to Contagious No 06/11/25 06:28 Disease Does patient have nerve No 06/10/25 08:37 stimulator Patient instructed to have device shut off --Does patient have Pacemaker No 06/11/25 06:28 or ICD? When Was Last Pacemaker Check QUESTION #4 FULL TEXT: You/Your Family Experience fever (hyperthermia) with Anesthesia Last Oral Intake Last Oral intake: Last Oral Intake NPO since 03:00 06/11/25 06:28 Meds taken in AM with sips of No 06/11/25 06:28 water? Meds patient instructed to take am of surgery PONV PONV - batch unit treater: PONV - batch unit treater Female Yes 06/10/25 08:37 HX of Motion Sickness Yes 06/10/25 08:37 HX of N/V After Surgery No 06/10/25 08:37 Non-Smoker Yes 06/10/25 08:37 Duration of Surgery greater No 06/10/25 08:37 than 60 minutes Number of Risk Factors 3 06/10/25 08:37 PONV Score Moderate Risk 06/10/25 08:37 Height & Weight Height & Weight: Anesthesia: Height & Weight Height 5 ft 10 in 06/11/25 06:28 Weight: 79 kg 06/11/25 06:28 Body Mass Index (BMI) 25.0 06/11/25 06:28 Respiratory Assessment Respiratory Assessment - batch unit treater: Respiratory Tract Infection Hx - batch unit treater Hx Respiratory Tract Infection No 06/10/25 08:37 STOP Sleep Apnea STOP Sleep Apnea - batch unit treater: STOP Sleep Apnea - batch unit treater Hx Hypertension Yes: PT TOOK SELF OFF MEDS 06/10/25 08:37 Hx Sleep Apnea No 06/10/25 08:37 CPAP BIPAP Do you snore loudly (louder No 06/10/25 08:37 than talking or can be heard Do you often feel tired/ No 06/10/25 08:37 fatigued/ sleepy during daytime? Has anyone observed you stop No 06/10/25 08:37 breathing during sleep? STOP Results Negative 06/10/25 08:37 QUESTION #5 FULL TEXT : Do you snore loudly (louder than talking or can be heard through closed doors)? 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 Specify any problems Hx of Preganancy in last 3 No 06/10/25 08:37 Months Nurse Filling Out Transfusion MGRIFFITH 06/10/25 08:37 & Questions: Date: 06/10/25 06/10/25 08:37 Time: 08:39 06/10/25 08:37 Patient unable to answer at this time (ie. confused, unrespo /Reproduction History /Reproductive History - batch unit treater: /Reproductive Hx- batch unit treater Hx Now No 06/10/25 08:37 Gestational Age (in weeks): EDC: Hx Hx Para Hx Section SAB No 06/10/25 08:37 Active Medications Active Medications: Current Medications Generic Name Dose Route Start Last Admin Trade Name Freq PRN Reason Stop Dose Admin Lactated Ringer's 1,000 mls @ 15 mls/hr 06/11/25 06:00 06/11/25 06:33 IV 15 mls/hr .Q48H VIGNESH Administration PFSH Medical History Low iron Dietary restriction Cardiology follow-up encounter Hypertension History of irregular heartbeat Colitis Wears glasses Post-menopausal Alcohol use Easy bruising Former smoker Shortness of breath on exertion History of stress test Menorrhagia History of colon polyps Home Medications ?Medication ?Instructions ?Recorded ?Last Taken ?Type loratadine 10 mg tablet 10 mg PO DAILY PRN allergy symptoms 08/23/23 Unknown History naproxen sodium 220 mg tablet 220 mg PO BID PRN pain 08/23/23 Unknown History (Aleve) aspirin 81 mg tablet 81 mg PO QDAY 04/16/25 06/03/25 History metoprolol tartrate 50 mg tablet 50 mg PO BID 04/16/25 06/04/25 History polyethylene glycol 3350 17 17 g PO QDAY 04/16/25 06/10/25 History gram/dose oral powder (Miralax) sennosides 8.6 mg capsule (senna) 8.6 mg PO BID 04/16/25 06/10/25 History Allergy/AdvReac Type Severity Reaction Status Date / Time No Known Allergies Allergy Verified 06/11/25 06:26 Family History Grandmother Breast cancer Brother Myocardial infarction Father Myocardial infarction Hypertension Heart disease Brother Cancer lymphoma Mother CVA (cerebral vascular accident) Surgical History History of colostomy History of colectomy Hx of colonoscopy History of hysteroscopy Status post breast reduction Social History household members: spouse current occupational status: employed 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 Physical Exam Const alert and oriented x3 Orientation / Consciousness: awake Neck full ROM Resp normal respiratory effort and normal air movement Cardio regular rate and regular rhythm Extremity full ROM
[2025-06-11] MEDS: Lactated Ringers 500 ML IV (07:15)
--- NOTE | 2025-06-11 07:15 | COLBX_PTH ---
PATIENT: JOSE LIND LOC: EN U#:[id number] AGE/SX: 59/F ROOM: RE06/11/[address]: Dr. Torrey Rich DO : 1965 BED: DIS: 06/11/2025 SPEC #: [id number] RECD: 06/11/25 11:35 STATUS: TIA REQ #: [id number] VENICE: 06/11/25 07:[address]: Torrey Rich DEPT: SURGICAL PATHOLOGY RECD BY: Chris Hernández ENTERED: 06/11/25 14:46 SP TYPE: COLON BX LEONA DR: Dr. Georgina Godfrey MD Tissues: A - Sigmoid colon biopsy B - Sigmoid colon biopsy C - COLON BIOPSY D - COLON BIOPSY Procedures: Surgery Specimen Level IV HEADER OPERATION: Colonoscopy with biopsy PRE-OP DIAGNOSIS: Diverticulitis, history of colon polyps TISSUE SUBMITTED: A- Sigmoid biopsy, B- Sigmoid polyp biopsy, C- IC valve biopsy, D- Random colon biopsy MICROSCOPIC DIAGNOSIS A. Sigmoid colon, biopsy: * Focal active cryptitis (See note) Note: Sections show focal active cryptitis with a mild increase in mixed inflammatory cells within the lamina propria. There are no granulomas or areas of dysplasia. The findings are not specific and may be seen in infections, medication-induced, NSAIDS, ischemia, diverticular disease and inflammatory bowel disease. Clinical and endoscopic correlation is recommended. B. Sigmoid colon, polyp, biopsy: * Hyperplastic polyp C. Ileocecal valve, biopsy: * Small bowel mucosa with no pathologic change D. Colon, random biopsy: * Benign colonic mucosa * Melanosis coli MICROSCOPIC DESCRIPTION Slides are reviewed. GROSS DESCRIPTION A. Received in fixative is one container labeled with the patient's name and designated Sigmoid biopsy. The specimen consists of three irregular fragments of light veloz soft tissue that measure 0.3 to 0.5 cm. The specimen is totally submitted in one cassette. B. Received in fixative is one container labeled with the patient's name and designated Sigmoid polyp biopsy. The specimen consists of two irregular fragments of light veloz soft tissue that measure 0.3 and 0.4 cm. The specimen is totally submitted in one cassette. C. Received in fixative is one container labeled with the patient's name and designated IC valve biopsy. The specimen consists of two irregular fragments of light veloz soft tissue that measure 0.3 and 0.5 cm. The specimen is totally submitted in one cassette. D. Received in fixative is one container labeled with the patient's name and designated Random colon biopsy. The specimen consists of multiple irregular fragments of light veloz soft tissue that in aggregate measure 1.2 x 0.5 x 0.1 cm. The specimen is totally submitted in one cassette. DC 06/11/2025 CPT:33459c1
--- NOTE | 2025-06-11 07:43 | PCM.POST.ANE ---
Anesthesia: Postop Eval I Current Vital Signs Temperature: 97 F Pulse Rate: 72 Blood Pressure: 108/82 Respiratory Rate: 16 Pulse Ox: 97 Oxygen Delivery Method: Room Air Assessment Airway patent: Yes Spontaneous unlabored respirations: Yes Mental status: Awake and Calm nausea: No Vomiting: No Anesthesia Complication: No Fluid Hydration Crystalloid volume administer (ml): 500 Total IV fluid infused: 500 Progress Note Anesthesia document: Postop Eval 1 completed: Yes
--- NOTE | 2025-06-11 07:57 | POSTOPAN2_ITS ---
Anesthesia Postop Eval I Sum Postop Eval Completion status Anesthesia document: Postop Eval 1 completed: Yes Anesthesia Postop Eval I Summary Anesthesia Postop Eval I Summary: Anesthesia Postop Eval I: Assessment Summary Airway patent Yes 06/11/25 07:44 METAL LEAF [email or web address] Spontaneous unlabored Yes 06/11/25 07:44 METAL LEAF LAYER.MDOT respirations Mental status Awake,Calm 06/11/25 07:44 METAL LEAF LAYER.MDOT nausea No 06/11/25 07:44 METAL LEAF LAYER.MDOT Vomiting No 06/11/25 07:44 METAL LEAF [email or web address].MDOT Anesthesia Postop Eval I: Fluid Summary Crystalloid volume administer 500 06/11/25 07:44 METAL LEAF LAYER.MDOT (ml) Colloids volume administered ( ml) Blood Product volume administered (ml) Total IV fluid infused 500 06/11/25 07:44 METAL LEAF [email or web address].MDOT Anesthesia Postop Eval I: Summary Notes Anesthesia Complication No 06/11/25 07:44 METAL LEAF [email or web address].MDOT Anesthesia Complication Comment: Post-operative progress note Anesthesia: Postop Eval II Evaluation Mental status: Awake and Calm Pain Level: 0 nausea: No Vomiting: No Complications Anesthesia Complication: No
--- NOTE | 2025-06-11 07:57 | PCM.POSTANE2 ---
Anesthesia Postop Eval I Sum Postop Eval Completion status Anesthesia document: Postop Eval 1 completed: Yes Anesthesia Postop Eval I Summary Anesthesia Postop Eval I Summary: Anesthesia Postop Eval I: Assessment Summary Airway patent Yes 06/11/25 07:44 PURCHASING [email or web address] Spontaneous unlabored Yes 06/11/25 07:44 PURCHASING MANAGER.MDOT respirations Mental status Awake,Calm 06/11/25 07:44 PURCHASING MANAGER.MDOT nausea No 06/11/25 07:44 PURCHASING MANAGER.MDOT Vomiting No 06/11/25 07:44 PURCHASING MANAGER.MDOT Anesthesia Postop Eval I: Fluid Summary Crystalloid volume administer 500 06/11/25 07:44 PURCHASING MANAGER.MDOT (ml) Colloids volume administered ( ml) Blood Product volume administered (ml) Total IV fluid infused 500 06/11/25 07:44 PURCHASING MANAGER.MDOT Anesthesia Postop Eval I: Summary Notes Anesthesia Complication No 06/11/25 07:44 PURCHASING MANAGER.MDOT Anesthesia Complication Comment: Post-operative progress note Anesthesia: Postop Eval II Evaluation Mental status: Awake and Calm Pain Level: 0 nausea: No Vomiting: No Complications Anesthesia Complication: No
--- NOTE | 2025-06-11 08:01 | OP.COLON_ITS ---
Patient Name: Bette Goldstein Procedure Date: 06/11/2025 7:15 AM Date of : 1965 Age: 59 Procedure: Colonoscopy Indications: Preoperative assessment, Post-operative assessment, Follow-up endoscopy after surgery Providers: Torrey Rich DO Medicines: Monitored Anesthesia Care Patient Profile: This is a 59 year old female. Refer to note in patient chart for documentation of history and physical. Last Colonoscopy: 1 year ago. Complications: No immediate complications. Procedure: Pre-Anesthesia Assessment: - Prior to the procedure, a History and Physical was performed, and patient medications and allergies were reviewed. The patient is competent. The risks and benefits of the procedure and the sedation options and risks were discussed with the patient. All questions were answered and informed consent was obtained. Patient identification and proposed procedure were verified by the physician in the pre-procedure area. Mental Status Examination: alert and oriented. Airway Examination: normal oropharyngeal airway and neck mobility. Respiratory Examination: clear to auscultation. CV Examination: normal. Prophylactic Antibiotics: The patient does not require prophylactic antibiotics. Prior Anticoagulants: The patient has taken no anticoagulant or antiplatelet agents except for NSAID medication. ASA Grade Assessment: II - A patient with mild systemic disease. After reviewing the risks and benefits, the patient was deemed in satisfactory condition to undergo the procedure. The anesthesia plan was to use monitored anesthesia care (MAC). Immediately prior to administration of medications, the patient was re-assessed for adequacy to receive sedatives. The heart rate, respiratory rate, oxygen saturations, blood pressure, adequacy of pulmonary ventilation, and response to care were monitored throughout the procedure. The physical status of the patient was re-assessed after the procedure. After I obtained informed consent, the scope was passed under direct vision. Throughout the procedure, the patient's blood pressure, pulse, and oxygen saturations were monitored continuously. The colonoscope was introduced through the sigmoid colostomy and advanced to the terminal ileum. The colonoscopy was performed without difficulty. The patient tolerated the procedure well. The quality of the bowel preparation was adequate. The terminal ileum, ileocecal valve, appendiceal orifice, and rectum were photographed. The colonoscope was introduced through the anus and advanced to the sigmoid colon to examine an anastomosis. This was the intended extent. Scope In: 7:24:18 AM Scope Withdrawal Time 0 hours 6 minutes 25 seconds Scope Out: 7:42:24 AM Total Procedure Duration Time 0 hours 18 minutes 6 seconds Findings: The perianal and digital rectal examinations were normal. There was evidence of a widely patent end colostomy in the sigmoid colon. This was characterized by healthy appearing mucosa. An area of mildly congested mucosa was found in the transverse colon, at the hepatic flexure, in the cecum and at the ileocecal valve. Biopsies for histology were taken with a cold forceps from the cecum, ascending colon, right colon and transverse colon for evaluation of microscopic colitis. Verification of patient identification for the specimen was done. Estimated blood loss was minimal. The terminal ileum appeared normal. An area of mildly congested mucosa was found in the rectum, in the recto-sigmoid colon and in the sigmoid colon. Biopsies were taken with a cold forceps for histology. Verification of patient identification for the specimen was done. Estimated blood loss was minimal. A few small-mouthed diverticula were found in the recto-sigmoid colon and sigmoid colon. A 5 mm polyp was found in the recto-sigmoid colon. The polyp was sessile. The polyp was removed with a jumbo cold forceps. Resection and retrieval were complete. Verification of patient identification for the specimen was done. Estimated blood loss was minimal. Impression: - Widely patent end colostomy with healthy appearing mucosa in the sigmoid colon. - Congested mucosa in the transverse colon, at the hepatic flexure, in the cecum and at the ileocecal valve. Biopsied. - The examined portion of the ileum was normal. - Congested mucosa in the rectum, in the recto-sigmoid colon and in the sigmoid colon. Biopsied. - Diverticulosis in the recto-sigmoid colon and in the sigmoid colon. - One 5 mm polyp at the recto-sigmoid colon, removed with a jumbo cold forceps. Resected and retrieved. Recommendation: - Repeat colonoscopy for surveillance. - Continue present medications. Procedure Code(s): --- Professional --- 16449, 52, Colonoscopy through stoma; with biopsy, single or multiple CPT copyright 2021 [employer]. All rights reserved. The codes documented in this report are preliminary and upon edging machine setter review may be revised to meet current compliance requirements. Torrey Rich DO 06/11/2025 8:01:05 AM This report has been signed electronically. Number of Addenda: 0 Note Initiated On: 06/11/2025 7:15 AM
--- NOTE | 2025-06-11 08:01 | OP.PROVAT_ITS ---
06/11/2025 Georgina Godfrey Md Re : Colonoscopy procedure for Bette Goldstein Dear Bekah This procedure was performed on May. My impressions and recommendations are as follows: Impressions : - Widely patent end colostomy with healthy appearing mucosa in the sigmoid colon. - Congested mucosa in the transverse colon, at the hepatic flexure, in the cecum and at the ileocecal valve. Biopsied. - The examined portion of the ileum was normal. - Congested mucosa in the rectum, in the recto-sigmoid colon and in the sigmoid colon. Biopsied. - Diverticulosis in the recto-sigmoid colon and in the sigmoid colon. - One 5 mm polyp at the recto-sigmoid colon, removed with a jumbo cold forceps. Resected and retrieved. Recommendations : - Repeat colonoscopy for surveillance. - Continue present medications. My findings are described in the full procedure note, which is enclosed. If I can be of further assistance, please feel free to contact me at . Sincerely, Torrey Rich DO 06/11/2025 8:01:05 AM This report has been signed electronically.
== END 2025-06-11 08:40 | disposition home or self-care (01) ==
LOC: EN 05:43 → AC 05:43
PROVIDERS: PCP Internal Medicine; Referring Provider Internal Medicine; Visit Provider Internal Medicine Gastroenterology
PROC: 0DJD8ZZ Inspection of Lower Intestinal Tract, Via Natural or Artificial Opening Endoscopic (ICD-10-PCS; CPT 45378; principal; 2025-06-11 07:10)
DX: Z12.11 Encounter for screening for malignant neoplasm of colon (principal); Z93.3 Colostomy status; K63.5 Polyp of colon; Z86.0100 Personal history of colon polyps, unspecified; I10 Essential (primary) hypertension; Z79.82 Long term (current) use of aspirin; K63.89 Other specified diseases of intestine; K57.92 Diverticulitis of intestine, part unspecified, without perforation or abscess without bleeding; Z87.891 Personal history of nicotine dependence; K62.89 Other specified diseases of anus and rectum
CPT/HCPCS: 45380; 88305